=== PATIENT | male | born 1965 | race African-American/Black ===

== ENCOUNTER 2017-05-24 11:16 | Inpatient (IN) | payer OTHER ==
[2017-05-24 15:09] VITALS: BMI 25.9
--- NOTE | 2017-05-24 17:43 | HP ---
CIWA Score - CIWA Score Nausea/Vomitin Muscle Tremors: 4-Moderate,w/Arms Extend Anxiety: 4-Mod. Anxious/Guarded Agitation: 0-Normal Activity Paroxysmal Sweats: 3 Orientation: 0-Oriented Tacttile Disturbances: 3-Moderate Itch/Numb/Burn Auditory Disturbances: 0-None Visual Disturbances: 0-None Headache: 1-Very Mild CIWA-Ar Total Score: 20 Admission ROS [facility] - HPI Chief Complaint: alcohol withdrawal sx Allergies/Adverse Reactions: Allergies Allergy/AdvReac Type Severity Reaction Status Date / Time Penicillins Allergy Rash Verified 05/24/17 15:46 pork derived (porcine) Allergy Hives Verified 05/24/17 15:46 RED MEAT Allergy Uncoded 05/24/17 15:46 History of Present Illness: 52 yo m withh/o alcohol, PCP and crack cocaine dependence PMHX DM, peripheral neuopathy, HTN, elevated cholesterol on medication which he is taking. no h/o seizures, no h/o DTS. no suicide attempts in past, no suicidal ideation at present Exam Limitations: No Limitations - Ebola screening Have you traveled outside of the country in the last 21 days: No Have you had contact with anyone from an Ebola affected area: No Have you been sick,other than usual withdrawal symptoms: No Do you have a fever: No - Review of Systems Constitutional: Chills, Diaphoresis, Weakness, Unintentional Wgt. Loss EENT: reports: No Symptoms Reported Respiratory: reports: No Symptoms reported Cardiac: reports: No Symptoms Reported GI: reports: Diarrhea, Nausea, Poor Appetite, Poor Fluid Intake : reports: No Symptoms Reported Musculoskeletal: reports: No Symptoms Reported Integumentary: reports: Flushing, Sweating Neuro: reports: Headache, Numbness, Tingling, Tremors, Weakness Endocrine: reports: No Symptoms Reported Hematology: reports: No Symptoms Reported Psychiatric: reports: Judgement Intact, Mood/Affect Appropiate, Orientated x3, Anxious, Depressed Other Systems: Reviewed and Negative Patient History - Patient Medical History Hx Anemia: No Hx Asthma: No Hx Chronic Obstructive Pulmonary Disease (COPD): No Hx Cancer: No Hx Cardiac Disorders: No Hx Congestive Heart Failure: No Hx Hypertension: Yes (on meds.) Hx Hypercholesterolemia: Yes Hx Pacemaker: No HX Cerebrovascular Accident: No Hx Seizures: No Hx Dementia: No Hx Diabetes: Yes (Type II) Hx Gastrointestinal Disorders: No Hx Liver Disease: No Hx Genitourinary Disorders: No Hx Sexually Transmitted Disorders: No Hx Renal Disease (ESRD): No Hx Thyroid Disease: No Hx Human Immunodeficiency Virus (HIV): No Hx Hepatitis C: No Hx Depression: No Hx Suicide Attempt: No Hx Bipolar Disorder: No Hx Schizophrenia: No - Patient Surgical History Past Surgical History: Yes Hx Appendectomy: Yes (1985) Anesthesia Reaction: No - PPD History Previous Implant?: Yes Documented Results: Negative w/o proof Implanted On Prior [facility] Admission?: No Date: 10/29/12 PPD to be Administered?: Yes - Reproductive History Patient is a Female of Child Bearing Age (11 -55 yrs old): No Patient : No - Smoking Cessation Smoking history: Current every day smoker Have you smoked in the past 12 months: Yes Aproximately how many cigarettes per day: 10 Hx Chewing Tobacco Use: No Initiated information on smoking cessation: Yes 'Breaking Loose' booklet given: 05/24/17 - Substance & Tx. History Hx Alcohol Use: Yes Hx Substance Use: Yes Substance Use Type: Alcohol, Cocaine Hx Substance Use Treatment: Yes (2012 [facility] detox) - Substances Abused Alcohol Route: Oral Frequency: Daily Amount used: 6pk beer Age of first use: 8 Date of Last Use: 05/24/17 PCP Route: Smoking Frequency: Daily Amount used: 2-3 bags Age of first use: 19 Date of Last Use: 05/24/17 Crack Route: Smoking Frequency: 1-2 times per week Amount used: 3 bags Age of first use: 29 Date of Last Use: 05/24/17 Family Disease History - Family Disease History Family Disease History: Diabetes: Mother Admission Physical Exam [facility] - Vital Signs Vital Signs: Vital Signs - 24 hr 05/24/17 15:05 Temperature 96.6 F L Pulse Rate 99 H Respiratory 20 Rate Blood Pressure 114/79 - Physical General Appearance: Yes: Nourished, Appropriately Dressed, Disheveled, Mild Distress, Thin, Tremorous, Sweating, Anxious HEENTM: Yes: Within Normal Limits, EOMI, Hearing grossly Normal, Normal ENT Inspection, Normocephalic, Normal Voice, AMY, Pharynx Normal Respiratory: Yes: Within Normal Limits, Chest Non-Tender, Lungs Clear, Normal Breath Sounds, No Respiratory Distress, No Accessory Muscle Use Neck: Yes: Within Normal Limits, No masses,lesions,Nodules, Supple, Trachea in good position Breast: Yes: Breast Exam Deferred Cardiology: Yes: Within Normal Limits, Regular Rhythm, Regular Rate, S1, S2 Abdominal: Yes: Within Normal Limits, Normal Bowel Sounds, Non Tender, Flat, Soft Genitourinary: Yes: Within Normal Limits Back: Yes: Within Normal Limits, Normal Inspection Musculoskeletal: Yes: Within Normal Limits, full range of Motion, Gait Steady, Pelvis Stable Extremities: Yes: Normal Capillary Refill, Normal Inspection, Normal Range of Motion, Non-Tender, Tremors Neurological: Yes: infantry assaultman II-XII NML intact, Fully Oriented, Alert, Motor Strength 5/5, Normal Response, Depressed Affect Integumentary: Yes: Normal Color, Warm, Clammy, Diaphoresis, Moist Lymphatic: Yes: Within Normal Limits - Addiitonal Findings: withdrawal sx - Diagnostic (1) Alcohol dependence with uncomplicated withdrawal Current Visit: Yes Status: Acute (2) Cocaine dependence, uncomplicated Current Visit: Yes Status: Acute (3) PCP dependence Current Visit: Yes Status: Acute (4) Peripheral neuropathy Current Visit: Yes Status: Acute (5) Diabetes Current Visit: Yes Status: Acute (6) Essential (primary) hypertension Current Visit: Yes Status: Acute (7) Elevated cholesterol Current Visit: Yes Status: Acute Cleared for Admission [facility] - Detox or Rehab [facility] Level of Care: Medically Managed Detox Regimen/Protocol: Librium [facility] Breath Alcohol Content Breath Alcohol Content: 0 Urine Drug Screen - Results Drug Screen Negative: No Urine Drug Screen Results: NAHOMY-Cocaine, PCP-Phencyclidine
[2017-05-24] MEDS ORDERED: diphenhydrAMINE HCL 50 MG CAPSULE PO PRN (17:46)
[2017-05-24] MEDS ORDERED: ACETAMINOPHEN 325 MG TABLET (FP) PO PRN (17:46)
[2017-05-24] MEDS ORDERED: NICOTINE POLACRILEX 2 MG GUM BC PRN (17:46)
[2017-05-24] MEDS ORDERED: hydrOXYzine PAMOATE 50 MG CAPSULE (FP) PO PRN (17:46)
[2017-05-24] MEDS ORDERED: MAG HYDROX/AL HYDROX/SIMETH 30 ML UNIT-DOSE CUP PO PRN (17:46)
[2017-05-24] MEDS ORDERED: IBUPROFEN 400 MG TABLET (FP) PO PRN (17:46)
[2017-05-24] MEDS ORDERED: MAGNESIUM CITRATE 300 ML BOTTLE PO PRN (17:46)
[2017-05-24] MEDS ORDERED: MAGNESIUM HYDROX 2400MG/30ML ORAL SUSPENSION 30 ML CUP PO PRN (17:46)
[2017-05-24] MEDS ORDERED: MENTHOL/PHENOL 1 EACH UD MM PRN (17:46)
[2017-05-24] MEDS ORDERED: guaiFENesin/D-METHORPHAN HB 10 ML UNIT-DOSE CUPS PO PRN (17:46)
[2017-05-24] MEDS ORDERED: chlordiazePOXIDE HCL 25 MG CAPSULE PO PRN (17:46)
[2017-05-24] MEDS ORDERED: LOPERAMIDE HCL 2 MG CAPSULE PO PRN (17:46)
[2017-05-24] MEDS ORDERED: P-EPHED 60MG/TRIPROLIDI 2.5MG TABLET PO PRN (17:46)
[2017-05-24] MEDS ORDERED: PANTOPRAZOLE 40 MG TABLET (FP) PO ONE (17:49)
[2017-05-24] MEDS ORDERED: ZOLPIDEM TARTRATE 10 MG TABLET (PARK CARE ONLY) PO PRN (17:51)
[2017-05-24] MEDS: ASPIRIN 81 MG CHEWABLE TABLETS PO SCH (18:31)
[2017-05-24] MEDS: NIFEdipine E.R 60 MG TABLET (UD) PO SCH (18:31)
[2017-05-24] MEDS ORDERED: chlordiazePOXIDE HCL 25 MG CAPSULE PO ONE (18:45)
[2017-05-24] MEDS: NICOTINE 14 MG/24 HOURS TOPICAL PATCH TD SCH (18:51)
[2017-05-24] MEDS ORDERED: INSULIN DETEMIR 100 UNITS/ML MDV SQ SCH (22:00)
[2017-05-24 22:13] LABS: URINE APPEARANCE CLEAR; URINE BILIRUBIN NEGATIVE (NEGATIVE); URINE BLOOD NEGATIVE (NEGATIVE); URINE COLOR LTYELLOW; URINE GLUCOSE (UA) 3+ (NEGATIVE); URINE KETONE NEGATIVE (NEGATIVE); URINE NITRITE NEGATIVE (NEGATIVE); URINE UROBILINOGEN NEGATIVE mg/dL (0.2-1.0)
[2017-05-24 22:20] LABS: URINE PROTEIN 1+ (NEGATIVE)
[2017-05-24] MEDS: THIAMINE HCL 100 MG TABLET (FP) PO SCH (22:22)
[2017-05-24] MEDS: chlordiazePOXIDE HCL 25 MG CAPSULE PO SCH (22:22)
[2017-05-24] MEDS: GABAPENTIN 300 MG CAPSULE (FP) PO SCH (22:22)
[2017-05-24] MEDS: NAPROXEN 500 MG TABLET (FP) PO SCH (22:23)
[2017-05-24] MEDS: ATORVASTATIN CA 10 MG TABLET (FP) PO SCH (22:23)
[2017-05-24] MEDS: FLUOCINONIDE 0.05% CREAM (15 GM TUBE) TP SCH (22:26)
[2017-05-24 22:49] LABS: URINE MUCUS RARE; URINE RBC NONE SEEN /hpf (0-3); URINE WBC NONE SEEN /hpf (3-5)
[2017-05-25] MEDS: GABAPENTIN 300 MG CAPSULE (FP) PO SCH ×3 (06:11→22:07)
[2017-05-25] MEDS: chlordiazePOXIDE HCL 25 MG CAPSULE PO SCH ×4 (06:12→22:07)
[2017-05-25] MEDS: FLUOCINONIDE 0.05% CREAM (15 GM TUBE) TP SCH ×3 (06:28→22:08)
[2017-05-25] MEDS ORDERED: INSULIN (NOVOLOG MIX 70/30) 100 UNITS/ML MDV SQ SCH ×2 (07:00→16:30)
[2017-05-25] MEDS ORDERED: COLLOIDAL OATMEAL 1 BAR EACH TP PRN (09:14)
[2017-05-25 09:30] LABS: MCH 31.6 pg (25.7-33.7); MEAN CELL VOLUME 92.9 fl (80-96); PLATELET COUNT 219 K/MM3 (134-434); RDW 13.6 % (11.9-15.9); WHITE BLOOD COUNT 7.2 K/mm3 (4.0-10.0)
[2017-05-25 09:57] LABS: ALBUMIN 3.8 g/dl (3.4-5.0); ALK PHOS 84 U/L (45-117); ANION GAP 12 (8-16); BILIRUBIN,TOTAL 1.2 mg/dL (0.2-1.0); CALCIUM 9.3 mg/dL (8.5-10.1); CO2 24 mmol/L (21-32); CREATININE 1.3 mg/dL (0.7-1.3); GLUCOSE,RANDOM 275 mg/dL (74-106); SGOT/AST 28 U/L (15-37); SGPT/ALT 50 U/L (12-78)
[2017-05-25] MEDS: ASPIRIN 81 MG CHEWABLE TABLETS PO SCH (10:14)
[2017-05-25] MEDS: PRENATAL VITAMINS W/ FOLIC ACID TABLET (FP) PO SCH (10:14)
[2017-05-25] MEDS: NICOTINE 14 MG/24 HOURS TOPICAL PATCH TD SCH (10:15)
[2017-05-25] MEDS: NIFEdipine E.R 60 MG TABLET (UD) PO SCH (10:15)
[2017-05-25] MEDS: NAPROXEN 500 MG TABLET (FP) PO SCH ×2 (10:15→22:07)
--- NOTE | 2017-05-25 11:34 | PN ---
[facility] CIWA - CIWA Score Nausea/Vomitin-No Nausea/No Vomiting Muscle Tremors: 4-Moderate,w/Arms Extend Anxiety: 4-Mod. Anxious/Guarded Agitation: 3 Paroxysmal Sweats: 3 Orientation: 0-Oriented Tacttile Disturbances: 2-Mild Itch/Numbness/Burn Auditory Disturbances: 2-Mild Harshness/Frighten Visual Disturbances: 0-None Headache: 0-None Present CIWA-Ar Total Score: 18 S Progress Note (SOAP) Subjective: Tremors, Sweating, Body Aches, Diarrhea. Objective: PT. A & O X 3, OBSERVED AMBULATING ON UNIT. NO ACUTE DISTRESS. 05/25/17 11:31 Vital Signs Temperature 96.4 F L 05/25/17 09:45 Pulse Rate 95 H 05/25/17 09:45 Respiratory Rate 18 05/25/17 09:45 Blood Pressure 109/72 05/25/17 09:45 O2 Sat by Pulse Oximetry (%) Laboratory Tests 05/24/17 05/24/17 05/24/17 16:11 21:26 21:30 WBC RBC Hgb Hct MCV MCH MCHC RDW Plt Count MPV Sodium Potassium Chloride Carbon Dioxide Anion Gap BUN Creatinine Creat Clearance w eGFR POC Glucometer 348 329 Random Glucose Calcium Total Bilirubin AST ALT Alkaline Phosphatase Total Protein Albumin Urine Color Ltyellow Urine Appearance Clear Urine pH 5.0 Urine Protein 1+ H Urine Glucose (UA) 3+ H Urine Ketones Negative Urine Blood Negative Urine Nitrite Negative Urine Bilirubin Negative Urine Urobilinogen Negative Urine RBC None seen Urine WBC None seen Urine Mucus Rare RPR Titer 05/25/17 05/25/17 05/25/17 06:10 07:00 07:00 WBC 7.2 D RBC 4.69 Hgb 14.8 Hct 43.6 MCV 92.9 MCH 31.6 MCHC 34.0 RDW 13.6 Plt Count 219 D MPV 9.0 Sodium 139 Potassium 3.7 Chloride 103 Carbon Dioxide 24 Anion Gap 12 BUN 16 D Creatinine 1.3 Creat Clearance w eGFR 57.75 POC Glucometer 270 Random Glucose 275 H D Calcium 9.3 Total Bilirubin 1.2 H D AST 28 D ALT 50 D Alkaline Phosphatase 84 Total Protein 7.0 Albumin 3.8 Urine Color Urine Appearance Urine pH Urine Protein Urine Glucose (UA) Urine Ketones Urine Blood Urine Nitrite Urine Bilirubin Urine Urobilinogen Urine RBC Urine WBC Urine Mucus RPR Titer 05/25/17 07:00 WBC RBC Hgb Hct MCV MCH MCHC RDW Plt Count MPV Sodium Potassium Chloride Carbon Dioxide Anion Gap BUN Creatinine Creat Clearance w eGFR POC Glucometer Random Glucose Calcium Total Bilirubin AST ALT Alkaline Phosphatase Total Protein Albumin Urine Color Urine Appearance Urine pH Urine Protein Urine Glucose (UA) Urine Ketones Urine Blood Urine Nitrite Urine Bilirubin Urine Urobilinogen Urine RBC Urine WBC Urine Mucus RPR Titer Nonreactive LABS NOTED. Assessment: 05/25/17 11:32 WITHDRAWAL SYMPTOMS. Plan: CONTINUE DETOX.
[2017-05-25 11:44] LABS: URINE LEUK ESTERASE Negative (NEGATIVE)
--- NOTE | 2017-05-25 12:03 | EKG ---
Test Reason : Blood Pressure : / mmHG Vent. Rate : 092 BPM Atrial Rate : 092 BPM P-R Int : 138 ms QRS Dur : 074 ms QT Int : 334 ms P-R-T Axes : 062 -38 040 degrees QTc Int : 413 ms NORMAL SINUS RHYTHM POSSIBLE LEFT ATRIAL ENLARGEMENT LEFT AXIS DEVIATION ABNORMAL ECG NO PREVIOUS ECGS AVAILABLE Confirmed by IRMA JOSHI MD ([id number]) on 05/25/2017 12:03:30 PM Referred By: Confirmed By:IRMA JOSHI MD
--- NOTE | 2017-05-25 15:37 | PN ---
[facility] Progress Note Note: As per Maggie Bernard RN, patient reports that he takes the following medications at home prior to this Detox admission: 1.) Lantus, 50 Units SQ HS; and 2.) Novolog Insulin, 10 Units SQ TIDCM. Current medication regimen adjusted so that those 2 medications are ordered (Levemir Insulin substituted for Lantus Insulin as per [facility] Hospital policy). Previous insulin orders D/C'd after patient report of corrected home medication schedule. Regular Insulin Sliding Scale ordered. Jignesh Unger NP
[2017-05-25] MEDS ORDERED: INSULIN (NOVOLOG) ASPART 100 UNITS/ML 10ML VIAL ONE (16:52)
[2017-05-25] MEDS: INSULIN (NOVOLOG) ASPART 100 UNITS/ML 10ML VIAL SQ SCH (17:05)
[2017-05-25] MEDS ORDERED: INSULIN (NOVOLOG) ASPART 100 UNITS/ML 10ML VIAL SQ SCH (17:30)
[2017-05-25] MEDS ORDERED: INSULIN DETEMIR 100 UNITS/ML MDV SQ SCH (22:00)
[2017-05-25] MEDS: THIAMINE HCL 100 MG TABLET (FP) PO SCH (22:07)
[2017-05-25] MEDS: ATORVASTATIN CA 10 MG TABLET (FP) PO SCH (22:07)
[2017-05-25] MEDS: INSULIN DETEMIR 100 UNITS/ML MDV SQ SCH (22:08)
[2017-05-26] MEDS: chlordiazePOXIDE HCL 25 MG CAPSULE PO SCH ×3 (06:28→17:05)
[2017-05-26] MEDS: GABAPENTIN 300 MG CAPSULE (FP) PO SCH ×3 (06:28→22:33)
[2017-05-26] MEDS: FLUOCINONIDE 0.05% CREAM (15 GM TUBE) TP SCH ×3 (06:31→22:32)
[2017-05-26] MEDS: INSULIN (NOVOLOG) ASPART 100 UNITS/ML 10ML VIAL SQ SCH ×3 (07:56→17:06)
[2017-05-26] MEDS: ASPIRIN 81 MG CHEWABLE TABLETS PO SCH (10:18)
[2017-05-26] MEDS: NIFEdipine E.R 60 MG TABLET (UD) PO SCH (10:19)
[2017-05-26] MEDS: NAPROXEN 500 MG TABLET (FP) PO SCH ×2 (10:19→22:33)
[2017-05-26] MEDS: PRENATAL VITAMINS W/ FOLIC ACID TABLET (FP) PO SCH (10:19)
[2017-05-26] MEDS: NICOTINE 14 MG/24 HOURS TOPICAL PATCH TD SCH (10:19)
--- NOTE | 2017-05-26 10:51 | PN ---
[facility] CIWA - CIWA Score Nausea/Vomitin-No Nausea/No Vomiting Muscle Tremors: 4-Moderate,w/Arms Extend Anxiety: 4-Mod. Anxious/Guarded Agitation: 4-Moderately Restless Paroxysmal Sweats: 1-Minimal Palms Moist Orientation: 0-Oriented Tacttile Disturbances: 3-Moderate Itch/Numb/Burn Auditory Disturbances: 0-None Visual Disturbances: 0-None Headache: 0-None Present CIWA-Ar Total Score: 16 S Progress Note (SOAP) Subjective: FATIGUE,SWEATS,IRRITABILITY. Objective: 05/26/17 10:54 Vital Signs Temperature 97.7 F 05/26/17 10:12 Pulse Rate 83 05/26/17 10:12 Respiratory Rate 18 05/26/17 10:12 Blood Pressure 115/70 05/26/17 10:12 O2 Sat by Pulse Oximetry (%) Laboratory Last Values WBC 7.2 K/mm3 (4.0-10.0) D 05/25/17 07:00 RBC 4.69 M/mm3 (4.00-5.60) 05/25/17 07:00 Hgb 14.8 GM/dL (11.7-16.9) 05/25/17 07:00 Hct 43.6 % (35.4-49) 05/25/17 07:00 MCV 92.9 fl (80-96) 05/25/17 07:00 MCH 31.6 pg (25.7-33.7) 05/25/17 07:00 MCHC 34.0 g/dl (32.0-35.9) 05/25/17 07:00 RDW 13.6 % (11.9-15.9) 05/25/17 07:00 Plt Count 219 K/MM3 (134-434) D 05/25/17 07:00 MPV 9.0 fl (7.5-11.1) 05/25/17 07:00 Sodium 139 mmol/L (136-145) 05/25/17 07:00 Potassium 3.7 mmol/L (3.5-5.1) 05/25/17 07:00 Chloride 103 mmol/L (98-107) 05/25/17 07:00 Carbon Dioxide 24 mmol/L (21-32) 05/25/17 07:00 Anion Gap 12 (8-16) 05/25/17 07:00 BUN 16 mg/dL (7-18) D 05/25/17 07:00 Creatinine 1.3 mg/dL (0.7-1.3) 05/25/17 07:00 Creat Clearance w eGFR 57.75 (>60) 05/25/17 07:00 POC Glucometer 296 UNITS (()) 05/26/17 06:29 Random Glucose 275 mg/dL (74-106) H D 05/25/17 07:00 Calcium 9.3 mg/dL (8.5-10.1) 05/25/17 07:00 Total Bilirubin 1.2 mg/dL (0.2-1.0) H D 05/25/17 07:00 AST 28 U/L (15-37) D 05/25/17 07:00 ALT 50 U/L (12-78) D 05/25/17 07:00 Alkaline Phosphatase 84 U/L (45-117) 05/25/17 07:00 Total Protein 7.0 g/dl (6.4-8.2) 05/25/17 07:00 Albumin 3.8 g/dl (3.4-5.0) 05/25/17 07:00 Urine Color Ltyellow 05/24/17 21:30 Urine Appearance Clear 05/24/17 21:30 Urine pH 5.0 (5.0-8.0) 05/24/17 21:30 Ur Specific [place] 1.010 (1.005-1.025) 05/24/17 21:30 Urine Protein 1+ (NEGATIVE) H 05/24/17 21:30 Urine Glucose (UA) 3+ (NEGATIVE) H 05/24/17 21:30 Urine Ketones Negative (NEGATIVE) 05/24/17 21:30 Urine Blood Negative (NEGATIVE) 05/24/17 21:30 Urine Nitrite Negative (NEGATIVE) 05/24/17 21:30 Urine Bilirubin Negative (NEGATIVE) 05/24/17 21:30 Urine Urobilinogen Negative mg/dL (0.2-1.0) 05/24/17 21:30 Ur Leukocyte Esterase Negative (NEGATIVE) 05/24/17 21:30 Urine RBC None seen /hpf (0-3) 05/24/17 21:30 Urine WBC None seen /hpf (3-5) 05/24/17 21:30 Urine Mucus Rare 05/24/17 21:30 RPR Titer Nonreactive (NONREACTIVE) 05/25/17 07:00 Assessment: 05/26/17 10:54 WITHDRAWAL SX Plan: CONTINUE DETOX
[2017-05-26] MEDS ORDERED: INSULIN (NOVOLOG) ASPART 100 UNITS/ML 10ML VIAL ONE (11:51)
[2017-05-26] MEDS: INSULIN DETEMIR 100 UNITS/ML MDV SQ SCH (22:32)
[2017-05-26] MEDS: THIAMINE HCL 100 MG TABLET (FP) PO SCH (22:33)
[2017-05-26] MEDS: ATORVASTATIN CA 10 MG TABLET (FP) PO SCH (22:33)
[2017-05-26] MEDS: chlordiazePOXIDE 5 MG CAPSULE PO SCH (22:34)
[2017-05-27] MEDS: chlordiazePOXIDE 5 MG CAPSULE PO SCH ×3 (05:59→17:05)
[2017-05-27] MEDS: GABAPENTIN 300 MG CAPSULE (FP) PO SCH ×3 (05:59→22:13)
[2017-05-27] MEDS: FLUOCINONIDE 0.05% CREAM (15 GM TUBE) TP SCH ×5 (06:00→22:14)
[2017-05-27] MEDS ORDERED: INSULIN (NOVOLOG) ASPART 100 UNITS/ML 10ML VIAL ONE ×2 (06:44→21:36)
[2017-05-27] MEDS: INSULIN (NOVOLOG) ASPART 100 UNITS/ML 10ML VIAL SQ SCH ×3 (07:54→17:07)
[2017-05-27] MEDS: NAPROXEN 500 MG TABLET (FP) PO SCH ×2 (10:42→22:13)
[2017-05-27] MEDS: ASPIRIN 81 MG CHEWABLE TABLETS PO SCH (10:43)
[2017-05-27] MEDS: PRENATAL VITAMINS W/ FOLIC ACID TABLET (FP) PO SCH (10:43)
[2017-05-27] MEDS: NICOTINE 14 MG/24 HOURS TOPICAL PATCH TD SCH (10:43)
[2017-05-27] MEDS: NIFEdipine E.R 60 MG TABLET (UD) PO SCH (10:43)
--- NOTE | 2017-05-27 14:13 | PN ---
[facility] Progress Note (SOAP) Subjective: Sweating, Tremors. Objective: PT. A & O X 3, OBSERVED AMBULATING ON UNIT. NO ACUTE DISTRESS. 05/27/17 14:12 Vital Signs Temperature 96.9 F L 05/27/17 13:53 Pulse Rate 81 05/27/17 13:53 Respiratory Rate 18 05/27/17 13:53 Blood Pressure 99/63 05/27/17 13:53 O2 Sat by Pulse Oximetry (%) Laboratory Tests 05/24/17 05/24/17 05/24/17 16:11 21:26 21:30 WBC RBC Hgb Hct MCV MCH MCHC RDW Plt Count MPV Sodium Potassium Chloride Carbon Dioxide Anion Gap BUN Creatinine Creat Clearance w eGFR POC Glucometer 348 329 Random Glucose Calcium Total Bilirubin AST ALT Alkaline Phosphatase Total Protein Albumin Urine Color Ltyellow Urine Appearance Clear Urine pH 5.0 Ur Specific [place] 1.010 Urine Protein 1+ H Urine Glucose (UA) 3+ H Urine Ketones Negative Urine Blood Negative Urine Nitrite Negative Urine Bilirubin Negative Urine Urobilinogen Negative Ur Leukocyte Esterase Negative Urine RBC None seen Urine WBC None seen Urine Mucus Rare RPR Titer 05/25/17 05/25/17 05/25/17 06:10 07:00 07:00 WBC 7.2 D RBC 4.69 Hgb 14.8 Hct 43.6 MCV 92.9 MCH 31.6 MCHC 34.0 RDW 13.6 Plt Count 219 D MPV 9.0 Sodium 139 Potassium 3.7 Chloride 103 Carbon Dioxide 24 Anion Gap 12 BUN 16 D Creatinine 1.3 Creat Clearance w eGFR 57.75 POC Glucometer 270 Random Glucose 275 H D Calcium 9.3 Total Bilirubin 1.2 H D AST 28 D ALT 50 D Alkaline Phosphatase 84 Total Protein 7.0 Albumin 3.8 Urine Color Urine Appearance Urine pH Ur Specific [place] Urine Protein Urine Glucose (UA) Urine Ketones Urine Blood Urine Nitrite Urine Bilirubin Urine Urobilinogen Ur Leukocyte Esterase Urine RBC Urine WBC Urine Mucus RPR Titer 05/25/17 05/25/17 05/25/17 07:00 11:23 16:16 WBC RBC Hgb Hct MCV MCH MCHC RDW Plt Count MPV Sodium Potassium Chloride Carbon Dioxide Anion Gap BUN Creatinine Creat Clearance w eGFR POC Glucometer 246 284 Random Glucose Calcium Total Bilirubin AST ALT Alkaline Phosphatase Total Protein Albumin Urine Color Urine Appearance Urine pH Ur Specific [place] Urine Protein Urine Glucose (UA) Urine Ketones Urine Blood Urine Nitrite Urine Bilirubin Urine Urobilinogen Ur Leukocyte Esterase Urine RBC Urine WBC Urine Mucus RPR Titer Nonreactive 05/25/17 05/26/17 05/26/17 21:31 06:29 16:19 WBC RBC Hgb Hct MCV MCH MCHC RDW Plt Count MPV Sodium Potassium Chloride Carbon Dioxide Anion Gap BUN Creatinine Creat Clearance w eGFR POC Glucometer 255 296 266 Random Glucose Calcium Total Bilirubin AST ALT Alkaline Phosphatase Total Protein Albumin Urine Color Urine Appearance Urine pH Ur Specific [place] Urine Protein Urine Glucose (UA) Urine Ketones Urine Blood Urine Nitrite Urine Bilirubin Urine Urobilinogen Ur Leukocyte Esterase Urine RBC Urine WBC Urine Mucus RPR Titer 05/26/17 05/27/17 05/27/17 21:32 06:01 12:23 WBC RBC Hgb Hct MCV MCH MCHC RDW Plt Count MPV Sodium Potassium Chloride Carbon Dioxide Anion Gap BUN Creatinine Creat Clearance w eGFR POC Glucometer 277 334 440 Random Glucose Calcium Total Bilirubin AST ALT Alkaline Phosphatase Total Protein Albumin Urine Color Urine Appearance Urine pH Ur Specific [place] Urine Protein Urine Glucose (UA) Urine Ketones Urine Blood Urine Nitrite Urine Bilirubin Urine Urobilinogen Ur Leukocyte Esterase Urine RBC Urine WBC Urine Mucus RPR Titer LABS NOTED. Assessment: 05/27/17 14:12 WITHDRAWAL SYMPTOMS. Plan: CONTINUE DETOX. INCREASE DAILY PO FLUID INTAKE.
[2017-05-27] MEDS: INSULIN SLIDING SCALE (NOVOLOG) 1 VIAL SQ SCH ×2 (17:06→22:14)
[2017-05-27] MEDS: chlordiazePOXIDE HCL 10 MG CAPSULE PO SCH (22:12)
[2017-05-27] MEDS: ATORVASTATIN CA 10 MG TABLET (FP) PO SCH (22:13)
[2017-05-27] MEDS: THIAMINE HCL 100 MG TABLET (FP) PO SCH (22:13)
[2017-05-27] MEDS: INSULIN DETEMIR 100 UNITS/ML MDV SQ SCH (22:13)
[2017-05-28] MEDS: GABAPENTIN 300 MG CAPSULE (FP) PO SCH (05:45)
[2017-05-28] MEDS: FLUOCINONIDE 0.05% CREAM (15 GM TUBE) TP SCH ×2 (05:45→06:21)
[2017-05-28] MEDS: chlordiazePOXIDE HCL 10 MG CAPSULE PO SCH ×2 (05:45→10:01)
[2017-05-28 06:20] VITALS: BP 116/75; PULSE 104; TEMP 96.8
[2017-05-28] MEDS: INSULIN SLIDING SCALE (NOVOLOG) 1 VIAL SQ SCH (06:22)
[2017-05-28] MEDS: INSULIN (NOVOLOG) ASPART 100 UNITS/ML 10ML VIAL SQ SCH (08:30)
[2017-05-28] MEDS: NIFEdipine E.R 60 MG TABLET (UD) PO SCH (10:00)
[2017-05-28] MEDS: NICOTINE 14 MG/24 HOURS TOPICAL PATCH TD SCH (10:00)
[2017-05-28] MEDS: NAPROXEN 500 MG TABLET (FP) PO SCH (10:00)
[2017-05-28] MEDS: ASPIRIN 81 MG CHEWABLE TABLETS PO SCH (10:00)
[2017-05-28] MEDS: PRENATAL VITAMINS W/ FOLIC ACID TABLET (FP) PO SCH (10:00)
--- NOTE | 2017-05-28 13:13 | DS ---
[facility] Detox Discharge Summary Admission Date: 05/24/17 Discharge Date: 05/28/17 - History Present History: Alcohol Dependence, Cocaine Dependence, Pcp Dependence Additional Comments: PT COMPLETED DETOX. ALERT O X 3. NAD. PT WILL FOLLOW UP AT [facility] WITH PCP NEEDED FOR MEDICAL MANAGEMENT OF COMORBID CONDITIONS. Pertinent Past History: HTN HYPERCHOLESTEROLEMIA DM PERIPHERAL NEUROPATHY - Physical Exam Results Vital Signs: Vital Signs Temperature 96.8 F L 05/28/17 06:19 Pulse Rate 104 H 05/28/17 06:19 Respiratory Rate 18 05/28/17 06:19 Blood Pressure 116/75 05/28/17 06:19 O2 Sat by Pulse Oximetry (%) Pertinent Admission Physical Exam Findings: WITHDRAWAL SX Laboratory Last Values WBC 7.2 K/mm3 (4.0-10.0) D 05/25/17 07:00 RBC 4.69 M/mm3 (4.00-5.60) 05/25/17 07:00 Hgb 14.8 GM/dL (11.7-16.9) 05/25/17 07:00 Hct 43.6 % (35.4-49) 05/25/17 07:00 MCV 92.9 fl (80-96) 05/25/17 07:00 MCH 31.6 pg (25.7-33.7) 05/25/17 07:00 MCHC 34.0 g/dl (32.0-35.9) 05/25/17 07:00 RDW 13.6 % (11.9-15.9) 05/25/17 07:00 Plt Count 219 K/MM3 (134-434) D 05/25/17 07:00 MPV 9.0 fl (7.5-11.1) 05/25/17 07:00 Sodium 139 mmol/L (136-145) 05/25/17 07:00 Potassium 3.7 mmol/L (3.5-5.1) 05/25/17 07:00 Chloride 103 mmol/L (98-107) 05/25/17 07:00 Carbon Dioxide 24 mmol/L (21-32) 05/25/17 07:00 Anion Gap 12 (8-16) 05/25/17 07:00 BUN 16 mg/dL (7-18) D 05/25/17 07:00 Creatinine 1.3 mg/dL (0.7-1.3) 05/25/17 07:00 Creat Clearance w eGFR 57.75 (>60) 05/25/17 07:00 POC Glucometer 331 UNITS (()) 05/28/17 05:43 Random Glucose 275 mg/dL (74-106) H D 05/25/17 07:00 Calcium 9.3 mg/dL (8.5-10.1) 05/25/17 07:00 Total Bilirubin 1.2 mg/dL (0.2-1.0) H D 05/25/17 07:00 AST 28 U/L (15-37) D 05/25/17 07:00 ALT 50 U/L (12-78) D 05/25/17 07:00 Alkaline Phosphatase 84 U/L (45-117) 05/25/17 07:00 Total Protein 7.0 g/dl (6.4-8.2) 05/25/17 07:00 Albumin 3.8 g/dl (3.4-5.0) 05/25/17 07:00 Urine Color Ltyellow 05/24/17 21:30 Urine Appearance Clear 05/24/17 21:30 Urine pH 5.0 (5.0-8.0) 05/24/17 21:30 Ur Specific [place] 1.010 (1.005-1.025) 05/24/17 21:30 Urine Protein 1+ (NEGATIVE) H 05/24/17 21:30 Urine Glucose (UA) 3+ (NEGATIVE) H 05/24/17 21:30 Urine Ketones Negative (NEGATIVE) 05/24/17 21:30 Urine Blood Negative (NEGATIVE) 05/24/17 21:30 Urine Nitrite Negative (NEGATIVE) 05/24/17 21:30 Urine Bilirubin Negative (NEGATIVE) 05/24/17 21:30 Urine Urobilinogen Negative mg/dL (0.2-1.0) 05/24/17 21:30 Ur Leukocyte Esterase Negative (NEGATIVE) 05/24/17 21:30 Urine RBC None seen /hpf (0-3) 05/24/17 21:30 Urine WBC None seen /hpf (3-5) 05/24/17 21:30 Urine Mucus Rare 05/24/17 21:30 RPR Titer Nonreactive (NONREACTIVE) 05/25/17 07:00 - Treatment Hospital Course: Detox Protocol Followed, Detoxed Safely, Responded well, Discharged Condition Good, Rehab Referral Accepted Patient has Accepted a Rehab Referral to: [facility] - [facility] Discharge Medications: Ambulatory Orders Aspirin [ASA -] 81 mg PO DAILY 05/24/17 Atorvastatin Calcium 10 mg PO HS 05/24/17 Diclofenac Sodium [Pennsaid] 2 gm TP BID 05/24/17 Ergocalciferol [Vitamin D2] 50,000 unit PO WEEKLY 05/24/17 Fluocinonide 0.05% Cream [Lidex 0.05% Cream -] 1 applic TP TID 05/24/17 Gabapentin 600 mg PO BID 05/24/17 Insulin (Novolog 70/30) [Novolog Mix 70/30 Flexpen -] 20 units SQ ACBK 05/24/17 Insulin Glargine,Hum.rec.anlog [Lantus Solostar PEN (NF)] 50 units SQ HS Linaclotide [Linzess] 145 mcg PO DAILY 05/24/17 Naproxen [Naprosyn -] 500 mg PO BID 05/24/17 Naproxen/Esomeprazole Mag [Vimovo Dr 500-20 mg Tablet] 1 each PO BID 05/24/17 Nifedipine [Procardia Xl] 60 mg PO DAILY 05/24/17 Insulin Aspart [Novolog] 10 unit SQ TIDCM 05/25/17 Insulin Glargine,Hum.rec.anlog [Lantus Solostar PEN (NF)] 50 units SQ HS - Diagnosis (1) Alcohol dependence with uncomplicated withdrawal Status: Acute (2) Cocaine dependence, uncomplicated Status: Acute (3) Diabetes Status: Chronic Qualifiers: Diabetes mellitus type: type 2 (4) Elevated cholesterol Status: Chronic (5) Essential (primary) hypertension Status: Chronic (6) Peripheral neuropathy Status: Chronic (7) Phencyclidine dependence Status: Acute - AMA Did Patient Leave Against Medical Advice: No
== END 2017-05-28 10:57 | disposition other institution (70) | DRG 774 ==
LOC: YASAS 11:16 → Y3N 15:46
PROVIDERS: ADMIT Internal Medicine; ATTEND Internal Medicine
PROC: HZ2ZZZZ Detoxification Services for Substance Abuse Treatment (ICD-10-PCS; principal; 2017-05-24)
DX: F10.230 Alcohol dependence with withdrawal, uncomplicated (principal); F14.20 Cocaine dependence, uncomplicated; F16.20 Hallucinogen dependence, uncomplicated; F17.210 Nicotine dependence, cigarettes, uncomplicated; I10 Essential (primary) hypertension; E11.9 Type 2 diabetes mellitus without complications; E78.00 Pure hypercholesterolemia, unspecified; G62.9 Polyneuropathy, unspecified; Z79.4 Long term (current) use of insulin; Z91.018 Allergy to other foods
CPT/HCPCS: 36415; 80053; 81003; 81015; 85027; 86593; 93005; 93010

== ENCOUNTER 2017-05-29 15:51 | Emergency (ER) | payer OTHER ==
[2017-05-29 16:21] VITALS: BP 108/72; PULSE 99; TEMP 97.3; BMI 28.0
--- NOTE | 2017-05-29 16:39 | PDOC ---
History of Present Illness - General Chief Complaint: Injury Stated Complaint: FALL History Source: Patient Exam Limitations: No Limitations - History of Present Illness Initial Comments: 05/29/17 16:39 This 52-year-old male who presents from rehabilitation at [address] [place] [address]. states he was walking in the hallway and slipped on water landing on his left knee and his left shoulder. Denies any LOC. Able to have some range of motion but states there is some pain at the left knee and shoulder during flexion and extension. No obvious injuries. Distally able to have full range of motion. Ice was applied. Past History - Past Medical History Allergies/Adverse Reactions: Allergies Allergy/AdvReac Type Severity Reaction Status Date / Time Penicillins Allergy Rash Verified 05/29/17 16:16 pork derived (porcine) Allergy Hives Verified 05/29/17 16:16 RED MEAT Allergy Uncoded 05/29/17 16:16 Home Medications: Ambulatory Orders Aspirin [ASA -] 81 mg PO DAILY 05/24/17 Atorvastatin Calcium 10 mg PO HS 05/24/17 Diclofenac Sodium [Pennsaid] 2 gm TP BID 05/24/17 Ergocalciferol [Vitamin D2] 50,000 unit PO WEEKLY 05/24/17 Fluocinonide 0.05% Cream [Lidex 0.05% Cream -] 1 applic TP TID 05/24/17 Gabapentin 600 mg PO BID 05/24/17 Insulin (Novolog 70/30) [Novolog Mix 70/30 Flexpen -] 20 units SQ ACBK 05/24/17 Insulin Glargine,Hum.rec.anlog [Lantus Solostar PEN (NF)] 50 units SQ HS Linaclotide [Linzess] 145 mcg PO DAILY 05/24/17 Naproxen [Naprosyn -] 500 mg PO BID 05/24/17 Naproxen/Esomeprazole Mag [Vimovo Dr 500-20 mg Tablet] 1 each PO BID 05/24/17 Nifedipine [Procardia Xl] 60 mg PO DAILY 05/24/17 Insulin Aspart [Novolog] 10 unit SQ TIDCM 05/25/17 Insulin Glargine,Hum.rec.anlog [Lantus Solostar PEN (NF)] 50 units SQ HS Anemia: No Asthma: No Cancer: No Cardiac Disorders: No CVA: No COPD: No CHF: No Dementia: No Diabetes: Yes GI Disorders: No Disorders: No HTN: Yes Hypercholesterolemia: Yes Kidney Stones: No Liver Disease: No Seizures: No Thyroid Disease: No - Surgical History Appendectomy: Yes (1985) - Reproductive History Testicular Surgery: No - Suicide/Smoking/Psychosocial Hx Smoking History: Former smoker Have you smoked in the past 12 months: No Number of Cigarettes Smoked Daily: 10 Information on smoking cessation initiated: No 'Breaking Loose' booklet given: 05/28/17 Hx Alcohol Use: No Drug/Substance Use Hx: No Substance Use Type: Alcohol, Cocaine Hx Substance Use Treatment: Yes (3 previous inpt detox & one inpt rehab) Review of Systems - Review of Systems Able to Perform ROS?: Yes Comments:: 05/29/17 16:40 General statement: Hematology: neg history of bleeding/blood thinners Skin: Neg for lesions, rash, bruising. HEENT: Neg symptoms Respiratory: Neg SOB or difficulty in breathing Cardiac: Neg chest pain GI: Neg pain, n/v : Neg problems on voiding MS: Neg for joint pain/stiffness, no edema Neuro: Neg for LOC, weakness, Endocrine: Neg for excess thirst/hunger, cold/heat intolerance, excess sweating Allergies: Neg for allergies *Physical Exam - Vital Signs Last Vital Signs Temp Pulse Resp BP Pulse Ox 97.3 F L 99 H 18 108/72 100 05/29/17 15:51 05/29/17 15:51 05/29/17 15:51 05/29/17 15:51 05/29/17 15:51 - Physical Exam Comments: 05/29/17 16:40 General Appearance: This well appearing V/S: hemodynamically stable, afebrile Skin: WNL of pt's skin color, no signs of pallor, mottling, cyanosis Head:symmetrical Eyes: EOM's intact, PERRLA Ears: denies pain Nose: patent Throat: lips, teeth, gums, tongue, buccal mucos pink and moist Lungs: Chest symmetry equal. Cap refill <3 seconds. Lung sounds clear Cardiac: PMI at R 4MCL space, pos S1 and S2, regular rate. Abdomen: Soft, round, nontender : Not observed Muscularskeletal: Gait steady, ambulated in to ER, no edema +PMS, left knee, left shoulder pain on rotation Neuro: AAOx3, cognitively intact, speech clear and appropriate. Medical Decision Making - Medical Decision Making 05/29/17 16:40 Patient initially seen and examined. Patient found to have some pain on rotation to the left shoulder and left knee. He states he fell while in [address] detox. Plan X-rays left shoulder and left knee. 05/29/17 17:33 neg fx *DC/Admit/Observation/Transfer Diagnosis at time of Disposition: Fall Knee pain, acute Qualifiers: Laterality: left Qualified Code(s): M25.562 - Pain in left knee Shoulder pain, left Qualifiers: Chronicity: acute Qualified Code(s): M25.512 - Pain in left shoulder - Discharge Dispostion Disposition: HOME Admit: No - Referrals Referrals: Rambo Hilario MD [Primary Care Provider] - - Patient Instructions Printed Discharge Instructions: How to Prevent Falls Additional Instructions: Discharge instructions 1. Please follow up with your primary physician within the next few days and explain that you have been seen here in the Emergency Room. 2. If you experience any worsening of symptoms, please return to the ER 3. Rest take Tylenol for pain, use ice 4. Drink plenty of water
[2017-05-29] MEDS ORDERED: IBUPROFEN 600 MG TABLET (FP) PO ONE ×2 (16:50→16:57)
== END 2017-05-29 17:41 | disposition other institution (70) ==
LOC: JERFT 15:51
DX: M25.512 Pain in left shoulder (principal); M25.562 Pain in left knee; I10 Essential (primary) hypertension; E11.9 Type 2 diabetes mellitus without complications; Z79.4 Long term (current) use of insulin; E78.00 Pure hypercholesterolemia, unspecified; Z87.891 Personal history of nicotine dependence; W01.0XXA Fall on same level from slipping, tripping and stumbling without subsequent striking against object, initial encounter; Y93.89 Activity, other specified; Y92.238 Other place in hospital as the place of occurrence of the external cause; Y99.8 Other external cause status
CPT/HCPCS: 73030-TC-LT; 73562-TC-LT; 99281-25

== ENCOUNTER 2017-12-11 14:15 | Inpatient (IN) | payer OTHER ==
[2017-12-11 16:24] VITALS: BMI 28.6
--- NOTE | 2017-12-11 20:40 | HP ---
CIWA Score - CIWA Score Nausea/Vomitin-No Nausea/No Vomiting Muscle Tremors: 4-Moderate,w/Arms Extend Anxiety: 4-Mod. Anxious/Guarded Agitation: 4-Moderately Restless Paroxysmal Sweats: 3 Orientation: 0-Oriented Tacttile Disturbances: 3-Moderate Itch/Numb/Burn Auditory Disturbances: 0-None Visual Disturbances: 3-Moderate Sensitivity Headache: 0-None Present CIWA-Ar Total Score: 21 Admission ROS BHS - HPI Chief Complaint: SEEKING DETOX FOR ALCOHOL DEPENDENCE. AND WITHDRAWAL SX'S Allergies/Adverse Reactions: Allergies Allergy/AdvReac Type Severity Reaction Status Date / Time Penicillins Allergy Severe Rash Verified 12/11/17 17:18 pork derived (porcine) Allergy Severe Hives Verified 12/11/17 17:18 RED MEAT Allergy Severe Hives Uncoded 12/11/17 17:18 History of Present Illness: 52 Y.O. MALE WITH LONG HX/O ALCOHOLISM HERE FOR DETOX. CLIENT IS KNOWN TO THIS PROGRAM. HE IS COURT MANDATED. SEEKING MEDICAL TERRITORY MANAGER SERVICES AFTER COMPLETING , REPORTS LONGEST CLEAN TIME 6 MONTHS. PMHX: DM, HTN, HLD, ANXIETY. BGM DOCUMENTED AT 17:48 WAS 508 MG/DL. PER CLIENT HE DID OT TAKE HIS MEDS TODAY. DENIES PAST AND PRESENT SI/HI AND A/V HALLUCINATIONS Exam Limitations: No Limitations - Ebola screening Have you traveled outside of the country in the last 21 days: No Have you had contact with anyone from an Ebola affected area: No Have you been sick,other than usual withdrawal symptoms: No Do you have a fever: No - Review of Systems Constitutional: Chills, Malaise, Night Sweats EENT: reports: Other (DRY MOUTH AND VISUAL CHANGES) Respiratory: reports: No Symptoms reported Cardiac: reports: No Symptoms Reported GI: reports: Poor Fluid Intake : reports: Frequency Musculoskeletal: reports: Other (FOOT AN FINGER TIP PAIN DUE TO NEURPOATHY) Integumentary: reports: No Symptoms Reported Neuro: reports: Numbness (/2 NEROPATHY) Endocrine: reports: Other (DM) Hematology: reports: No Symptoms Reported Psychiatric: reports: Anxious Other Systems: Reviewed and Negative Patient History - Patient Medical History Hx Anemia: No Hx Asthma: No Hx Chronic Obstructive Pulmonary Disease (COPD): No Hx Cancer: No Hx Cardiac Disorders: No Hx Congestive Heart Failure: No Hx Hypertension: Yes Hx Hypercholesterolemia: Yes Hx Pacemaker: No HX Cerebrovascular Accident: No Hx Seizures: No Hx Dementia: No Hx Diabetes: Yes (IDDM) Hx Gastrointestinal Disorders: Yes (IBS) Hx Liver Disease: No Hx Genitourinary Disorders: No Hx Sexually Transmitted Disorders: No Hx Renal Disease (ESRD): No Hx Thyroid Disease: No Hx Human Immunodeficiency Virus (HIV): No Hx Hepatitis C: No Hx Depression: No Hx Suicide Attempt: No Hx Bipolar Disorder: No Hx Schizophrenia: No Other Medical History: ANXIETY - Patient Surgical History Past Surgical History: Yes Hx Neurologic Surgery: No Hx Cataract Extraction: No Hx Cardiac Surgery: No Hx Lung Surgery: No Hx Breast Surgery: No Hx Breast Biopsy: No Hx Abdominal Surgery: No Hx Appendectomy: Yes (1985) Hx Cholecystectomy: No Hx Genitourinary Surgery: No Hx Section: No Hx Orthopedic Surgery: No Anesthesia Reaction: No - PPD History Previous Implant?: Yes Documented Results: Negative w/proof Implanted On Prior [facility] Admission?: Yes Date: 05/26/17 Results: 0 mm PPD to be Administered?: No - Smoking Cessation Smoking history: Current some day smoker Have you smoked in the past 12 months: No Aproximately how many cigarettes per day: 3 Hx Chewing Tobacco Use: No Initiated information on smoking cessation: Yes 'Breaking Loose' booklet given: 12/11/17 - Substance & Tx. History Hx Alcohol Use: Yes Hx Substance Use: Yes Substance Use Type: Alcohol, Cocaine Hx Substance Use Treatment: Yes ([facility] - Substances Abused Cocaine Route: Smoking Frequency: Daily Amount used: $30 Age of first use: 16 Date of Last Use: 12/08/17 Alcohol-vodka/beer Route: Oral Frequency: Daily Amount used: 1 pt./1-6 pk. Age of first use: 8 Date of Last Use: 12/11/17 Family Disease History - Family Disease History Family Disease History: Diabetes: Mother Admission Physical Exam S - Vital Signs Vital Signs: Vital Signs - 24 hr 12/11/17 16:20 Temperature 97 F L Pulse Rate 99 H Respiratory 20 Rate Blood Pressure 134/88 - Physical General Appearance: Yes: Nourished, Appropriately Dressed, Anxious HEENTM: Yes: EOMI, Normocephalic, Normal Voice, AMY, Pharynx Normal, Other ( MISSING TEETH) Respiratory: Yes: Chest Non-Tender, Lungs Clear, Normal Breath Sounds, No Respiratory Distress, No Accessory Muscle Use Neck: Yes: No masses,lesions,Nodules, Supple, Trachea in good position Breast: Yes: Breast Exam Deferred Cardiology: Yes: Regular Rhythm, Regular Rate, S1, S2 Abdominal: Yes: Normal Bowel Sounds, Non Tender, Soft, Protuberent Genitourinary: Yes: Within Normal Limits Back: Yes: Normal Inspection Musculoskeletal: Yes: full range of Motion, Gait Steady Extremities: Yes: Normal Capillary Refill, Normal Range of Motion, Non-Tender Neurological: Yes: Alert, Motor Strength 5/5 Integumentary: Yes: Normal Color, Dry, Warm Lymphatic: Yes: Within Normal Limits - Diagnostic (1) HLD (hyperlipidemia) Current Visit: Yes Status: Acute Qualifiers: Hyperlipidemia type: unspecified Qualified Code(s): E78.5 - Hyperlipidemia , unspecified (2) DIABETES TYPE 2 Current Visit: Yes Status: Acute (3) Alcohol dependence with uncomplicated withdrawal Current Visit: Yes Status: Chronic (4) Cocaine dependence, uncomplicated Current Visit: Yes Status: Chronic (5) Nicotine dependence Current Visit: Yes Status: Chronic Qualifiers: Nicotine product type: cigarettes Substance use status: uncomplicated Qualified Code(s): F17.210 - Nicotine dependence, cigarettes, uncomplicated (6) Substance-induced sleep disorder Current Visit: Yes Status: Chronic (7) Essential (primary) hypertension Current Visit: Yes Status: Chronic (8) Peripheral neuropathy Current Visit: Yes Status: Chronic Qualifiers: Peripheral neuropathy type: polyneuropathy, unspecified Qualified Code(s): G62.9 - Polyneuropathy, unspecified (9) Dry mucous membranes Current Visit: Yes Status: Acute Cleared for Admission [facility] - Detox or Rehab [facility] Level of Care: Medically Managed Detox Regimen/Protocol: Librium Claeared for Rehab Admission: No [facility] Breath Alcohol Content Breath Alcohol Content: 0.008 Urine Drug Screen - Results Drug Screen Negative: Yes
[2017-12-11] MEDS ORDERED: MAGNESIUM CITRATE 300 ML BOTTLE PO PRN (20:46)
[2017-12-11] MEDS ORDERED: P-EPHED 60MG/TRIPROLIDI 2.5MG TABLET PO PRN (20:46)
[2017-12-11] MEDS ORDERED: IBUPROFEN 400 MG TABLET (FP) PO PRN (20:46)
[2017-12-11] MEDS ORDERED: MAGNESIUM HYDROX 2400MG/30ML ORAL SUSPENSION 30 ML CUP PO PRN (20:46)
[2017-12-11] MEDS ORDERED: ACETAMINOPHEN 325 MG TABLET (FP) PO PRN (20:46)
[2017-12-11] MEDS ORDERED: MENTHOL/PHENOL 1 EACH UD MM PRN (20:46)
[2017-12-11] MEDS ORDERED: hydrOXYzine PAMOATE 50 MG CAPSULE (FP) PO PRN (20:46)
[2017-12-11] MEDS ORDERED: chlordiazePOXIDE HCL 25 MG CAPSULE PO PRN (20:46)
[2017-12-11] MEDS ORDERED: MAG HYDROX/AL HYDROX/SIMETH 30 ML UNIT-DOSE CUP PO PRN (20:46)
[2017-12-11] MEDS ORDERED: guaiFENesin/D-METHORPHAN HB 10 ML UNIT-DOSE CUPS PO PRN (20:46)
[2017-12-11] MEDS ORDERED: INSULIN (NOVOLOG) ASPART 100 UNITS/ML 10ML VIAL ONE (21:43)
[2017-12-11] MEDS: THIAMINE HCL 100 MG TABLET (FP) PO SCH (21:54)
[2017-12-11] MEDS: GABAPENTIN 400 MG CAPSULE (FP) PO SCH (21:54)
[2017-12-11] MEDS: ATORVASTATIN CA 10 MG TABLET (FP) PO SCH (21:55)
[2017-12-11] MEDS ORDERED: MELATONIN 5 MG TABLETS PO PRN (22:00)
[2017-12-11] MEDS: INSULIN SLIDING SCALE (NOVOLOG) 1 VIAL SQ SCH (22:03)
[2017-12-11] MEDS: INSULIN (LEVEMIR) 100 UNITS/ML UNITS SQ SCH (22:03)
[2017-12-11] MEDS: chlordiazePOXIDE HCL 25 MG CAPSULE PO SCH (22:53)
[2017-12-11 23:07] LABS: URINE APPEARANCE CLEAR; URINE BILIRUBIN NEGATIVE (<2.0 mg/dL); URINE COLOR YELLOW; URINE GLUCOSE (UA) 1+ (NEGATIVE); URINE KETONE NEGATIVE (NEGATIVE); URINE LEUK ESTERASE NEGATIVE (NEGATIVE); URINE NITRITE NEGATIVE (NEGATIVE); URINE PROTEIN NEGATIVE (NEGATIVE); URINE UROBILINOGEN NEGATIVE mg/dL (0.2-1.0)
[2017-12-12] MEDS: chlordiazePOXIDE HCL 25 MG CAPSULE PO SCH ×4 (06:15→22:18)
[2017-12-12] MEDS: INSULIN SLIDING SCALE (NOVOLOG) 1 VIAL SQ SCH ×4 (08:08→22:23)
[2017-12-12] MEDS ORDERED: INSULIN (NOVOLOG) ASPART 100 UNITS/ML 10ML VIAL ONE ×4 (08:08→21:47)
[2017-12-12] MEDS ORDERED: NIFEdipine E.R 60 MG TABLET (UD) PO SCH (10:00)
[2017-12-12] MEDS ORDERED: PATIENT'S OWN MEDICATION (NON-FORMULARY) (Nifedipine [Procardia Xl] 60 MG) PO SCH (10:00)
[2017-12-12 10:03] LABS: HEMATOCRIT 44.5 % (35.4-49); HEMOGLOBIN 15.8 GM/dL (11.7-16.9); MCH 32.9 pg (25.7-33.7); MCHC 35.6 g/dl (32.0-35.9); MEAN CELL VOLUME 92.5 fl (80-96); MEAN PLT VOLUME 9.6 fl (7.5-11.1); PLATELET COUNT 212 K/MM3 (134-434); RBC 4.81 M/mm3 (4.00-5.60); RDW 13.6 % (11.9-15.9)
--- NOTE | 2017-12-12 10:24 | PN ---
[facility] CIWA - CIWA Score Nausea/Vomitin-No Nausea/No Vomiting Muscle Tremors: 4-Moderate,w/Arms Extend Anxiety: 4-Mod. Anxious/Guarded Agitation: 4-Moderately Restless Paroxysmal Sweats: 1-Minimal Palms Moist Orientation: 0-Oriented Tacttile Disturbances: 3-Moderate Itch/Numb/Burn Auditory Disturbances: 0-None Visual Disturbances: 0-None Headache: 0-None Present CIWA-Ar Total Score: 16 BHS Progress Note (SOAP) Subjective: TREMORS, ANXIETY, DIARRHEA, INTERMITTENT SLEEP. Objective: 12/12/17 10:23 Vital Signs Temperature 97.7 F 12/12/17 09:14 Pulse Rate 91 H 12/12/17 09:14 Respiratory Rate 20 12/12/17 09:14 Blood Pressure 106/66 12/12/17 09:14 O2 Sat by Pulse Oximetry (%) Laboratory Last Values WBC 8.0 K/mm3 (4.0-10.0) 12/12/17 07:00 RBC 4.81 M/mm3 (4.00-5.60) 12/12/17 07:00 Hgb 15.8 GM/dL (11.7-16.9) 12/12/17 07:00 Hct 44.5 % (35.4-49) 12/12/17 07:00 MCV 92.5 fl (80-96) 12/12/17 07:00 MCH 32.9 pg (25.7-33.7) 12/12/17 07:00 MCHC 35.6 g/dl (32.0-35.9) 12/12/17 07:00 RDW 13.6 % (11.9-15.9) 12/12/17 07:00 Plt Count 212 K/MM3 (134-434) 12/12/17 07:00 MPV 9.6 fl (7.5-11.1) 12/12/17 07:00 POC Glucometer 433 UNITS (80-120) 12/12/17 06:15 Urine Color Yellow 12/11/17 23:00 Urine Appearance Clear 12/11/17 23:00 Urine pH 6.0 (5.0-8.0) 12/11/17 23:00 Ur Specific [place] 1.017 (1.001-1.035) 12/11/17 23:00 Urine Protein Negative (NEGATIVE) 12/11/17 23:00 Urine Glucose (UA) 1+ (NEGATIVE) H 12/11/17 23:00 Urine Ketones Negative (NEGATIVE) 12/11/17 23:00 Urine Blood Negative (NEGATIVE) 12/11/17 23:00 Urine Nitrite Negative (NEGATIVE) 12/11/17 23:00 Urine Bilirubin Negative (<2.0 mg/dL) 12/11/17 23:00 Urine Urobilinogen Negative mg/dL (0.2-1.0) 12/11/17 23:00 Ur Leukocyte Esterase Negative (NEGATIVE) 12/11/17 23:00 Assessment: 12/12/17 10:23 WITHDRAWAL SX Plan: CONTINUE DETOX IMODIUM PRN
[2017-12-12] MEDS: NICOTINE 14 MG/24 HOURS TOPICAL PATCH TD SCH (10:58)
[2017-12-12] MEDS: PRENATAL VITAMINS W/ FOLIC ACID TABLET (FP) PO SCH (10:58)
[2017-12-12] MEDS: ASPIRIN 81 MG CHEWABLE TABLETS PO SCH (10:58)
[2017-12-12] MEDS: GABAPENTIN 400 MG CAPSULE (FP) PO SCH ×2 (10:58→22:19)
[2017-12-12] MEDS: NIFEdipine E.R 60 MG TABLET (UD) PO SCH (10:58)
[2017-12-12 11:04] LABS: ALBUMIN 3.8 g/dl (3.4-5.0); ANION GAP 12 (8-16); BLOOD UREA NITROGEN 16 mg/dL (7-18); CALCIUM 9.4 mg/dL (8.5-10.1); CHLORIDE 100 mmol/L (98-107); CO2 26 mmol/L (21-32); POTASSIUM 4.4 mmol/L (3.5-5.1); SODIUM 138 mmol/L (136-145)
[2017-12-12 11:11] LABS: ALK PHOS 84 U/L (45-117); BILIRUBIN,TOTAL 0.6 mg/dL (0.2-1.0); CREATININE 1.5 mg/dL (0.7-1.3); SGOT/AST 15 U/L (15-37); SGPT/ALT 19 U/L (12-78); TOT PROT 7.7 g/dl (6.4-8.2)
[2017-12-12] MEDS ORDERED: COLLOIDAL OATMEAL 1 BAR EACH TP PRN (11:50)
[2017-12-12 13:20] LABS: GLUCOSE,RANDOM 411 mg/dL (74-106)
[2017-12-12] MEDS: LOPERAMIDE HCL 2 MG CAPSULE PO PRN (15:24)
--- NOTE | 2017-12-12 16:11 | CONSULT ---
[facility] Psychiatric Consult - Data Date of interview: 12/12/17 Admission source: [facility] Identifying data: Readmission to [facility] for this 52 y/o AA male seeking detox treatment on for alcohol,cocaine (crack) and phencyclidine dependence.Patient is ,a father of five,domiciled,unemployed and currently supported on welfare. Substance Abuse History: Confirmed by patient in this interview.Details in current [facility] report.Smoking history: Current some day smoker. Have you smoked in the past 12 months: No. Aproximately how many cigarettes per day: 3. Hx Chewing Tobacco Use: No. Initiated information on smoking cessation: Yes. ' Breaking Loose' booklet given: 12/11/17. - Substance & Tx. History. Hx Alcohol Use: Yes. Hx Substance Use: Yes. Substance Use Type: Alcohol, Cocaine. Hx Substance Use Treatment: Yes ([facility] - Substances Abused. Cocaine. Route: Smoking. Frequency: Daily. Amount used: $30. Age of first use: 16. Date of Last Use: 12/08/17. Alcohol-vodka/beer. Route: Oral. Frequency: Daily. Amount used: 1 pt./1-6 pk. Age of first use: 8. Date of Last Use: 12/11/17 Medical History: Diabetes mellitus,Dyslipidemia,hypertension,peripheral neuropathy and a history of appendectomy. Psychiatric History: Patient denies. Physical/Sexual Abuse/Trauma History: Patient denies. Additional Comment: Drug Screen Negative: Yes Mental Status Exam - Mental Status Exam Alert and Oriented to: Time, Place, Person Cognitive Function: Good Patient Appearance: Well Groomed Mood: Hopeful, Euthymic Affect: Appropriate, Normal Range Patient Behavior: Fatigued, Appropriate, Cooperative Speech Pattern: Clear, Appropriate Voice Loudness: Normal Thought Process: Intact, Goal Oriented Thought Disorder: Not Present Hallucinations: Denies Suicidal Ideation: Denies Homicidal Ideation: Denies Insight/Judgement: Poor Sleep: Poorly, Difficulty falling asleep Appetite: Good Muscle strength/Tone: Normal Gait/Station: Normal Psychiatric Findings - Problem List ([place] 1, 2,3) (1) Alcohol dependence with uncomplicated withdrawal Current Visit: Yes Status: Acute (2) Cocaine dependence, uncomplicated Current Visit: Yes Status: Acute (3) Phencyclidine dependence Current Visit: Yes Status: Acute (4) Nicotine dependence Current Visit: Yes Status: Acute Qualifiers: Nicotine product type: cigarettes Substance use status: in withdrawal Qualified Code(s): F17.213 - Nicotine dependence, cigarettes, with withdrawal (5) Insomnia Current Visit: Yes Status: Acute - Initial Treatment Plan Initial Treatment Plan: Psychoeducation.Sleep hygiene.Detoxification.Benadryl 50 mg po hs prn.Side effects/benefits discussed with patient.Mr Stevens agrees with careplan.Observation.
[2017-12-12] MEDS: THIAMINE HCL 100 MG TABLET (FP) PO SCH (22:18)
[2017-12-12] MEDS: ATORVASTATIN CA 10 MG TABLET (FP) PO SCH (22:19)
[2017-12-12] MEDS: INSULIN (LEVEMIR) 100 UNITS/ML UNITS SQ SCH (22:23)
[2017-12-12] MEDS: diphenhydrAMINE HCL 25 MG CAPSULE (FP) PO PRN (22:30)
[2017-12-13] MEDS: chlordiazePOXIDE HCL 25 MG CAPSULE PO SCH ×3 (06:14→17:06)
[2017-12-13] MEDS ORDERED: INSULIN (NOVOLOG) ASPART 100 UNITS/ML 10ML VIAL ONE ×4 (07:55→21:09)
[2017-12-13] MEDS: INSULIN SLIDING SCALE (NOVOLOG) 1 VIAL SQ SCH ×4 (08:02→22:28)
--- NOTE | 2017-12-13 09:50 | EKG ---
Test Reason : Blood Pressure : / mmHG Vent. Rate : 088 BPM Atrial Rate : 088 BPM P-R Int : 142 ms QRS Dur : 076 ms QT Int : 336 ms P-R-T Axes : 070 -68 038 degrees QTc Int : 406 ms NORMAL SINUS RHYTHM POSSIBLE LEFT ATRIAL ENLARGEMENT LEFT AXIS DEVIATION POSSIBLE ANTERIOR INFARCT , AGE UNDETERMINED ABNORMAL ECG WHEN COMPARED WITH ECG OF 24-MAY-2017 18:48, NO SIGNIFICANT CHANGE WAS FOUND Confirmed by NITESH ANDUJAR MD ([id number]) on 12/13/2017 9:50:07 AM Referred By: Confirmed By:NITESH ANDUJAR MD
[2017-12-13] MEDS: GABAPENTIN 400 MG CAPSULE (FP) PO SCH ×2 (10:22→22:29)
[2017-12-13] MEDS: NIFEdipine E.R 60 MG TABLET (UD) PO SCH (10:22)
[2017-12-13] MEDS: ASPIRIN 81 MG CHEWABLE TABLETS PO SCH (10:22)
[2017-12-13] MEDS: NICOTINE POLACRILEX 2 MG GUM BC PRN (10:22)
[2017-12-13] MEDS: PRENATAL VITAMINS W/ FOLIC ACID TABLET (FP) PO SCH (10:22)
[2017-12-13] MEDS: NICOTINE 14 MG/24 HOURS TOPICAL PATCH TD SCH (10:22)
--- NOTE | 2017-12-13 11:14 | PN ---
[facility] CIWA - CIWA Score Nausea/Vomitin-No Nausea/No Vomiting Muscle Tremors: 4-Moderate,w/Arms Extend Anxiety: 4-Mod. Anxious/Guarded Agitation: 4-Moderately Restless Paroxysmal Sweats: 1-Minimal Palms Moist Orientation: 0-Oriented Tacttile Disturbances: 0-None Auditory Disturbances: 0-None Visual Disturbances: 0-None Headache: 0-None Present CIWA-Ar Total Score: 13 S Progress Note (SOAP) Subjective: ANXIETY,SWEATS,DIARRHEA-RECEIVED IMODIUM. Objective: 12/13/17 11:14 Vital Signs Temperature 97.7 F 12/13/17 09:06 Pulse Rate 102 H 12/13/17 09:06 Respiratory Rate 18 12/13/17 09:06 Blood Pressure 114/74 12/13/17 09:06 O2 Sat by Pulse Oximetry (%) Laboratory Last Values WBC 8.0 K/mm3 (4.0-10.0) 12/12/17 07:00 RBC 4.81 M/mm3 (4.00-5.60) 12/12/17 07:00 Hgb 15.8 GM/dL (11.7-16.9) 12/12/17 07:00 Hct 44.5 % (35.4-49) 12/12/17 07:00 MCV 92.5 fl (80-96) 12/12/17 07:00 MCH 32.9 pg (25.7-33.7) 12/12/17 07:00 MCHC 35.6 g/dl (32.0-35.9) 12/12/17 07:00 RDW 13.6 % (11.9-15.9) 12/12/17 07:00 Plt Count 212 K/MM3 (134-434) 12/12/17 07:00 MPV 9.6 fl (7.5-11.1) 12/12/17 07:00 Sodium 138 mmol/L (136-145) 12/12/17 07:00 Potassium 4.4 mmol/L (3.5-5.1) 12/12/17 07:00 Chloride 100 mmol/L (98-107) 12/12/17 07:00 Carbon Dioxide 26 mmol/L (21-32) 12/12/17 07:00 Anion Gap 12 (8-16) 12/12/17 07:00 BUN 16 mg/dL (7-18) 12/12/17 07:00 Creatinine 1.5 mg/dL (0.7-1.3) H 12/12/17 07:00 Creat Clearance w eGFR 48.95 (>60) 12/12/17 07:00 POC Glucometer 351 UNITS (80-120) 12/13/17 06:11 Random Glucose 411 mg/dL (74-106) H* D 12/12/17 07:00 Calcium 9.4 mg/dL (8.5-10.1) 12/12/17 07:00 Total Bilirubin 0.6 mg/dL (0.2-1.0) D 12/12/17 07:00 AST 15 U/L (15-37) D 12/12/17 07:00 ALT 19 U/L (12-78) D 12/12/17 07:00 Alkaline Phosphatase 84 U/L (45-117) 12/12/17 07:00 Total Protein 7.7 g/dl (6.4-8.2) 12/12/17 07:00 Albumin 3.8 g/dl (3.4-5.0) 12/12/17 07:00 Urine Color Yellow 12/11/17 23:00 Urine Appearance Clear 12/11/17 23:00 Urine pH 6.0 (5.0-8.0) 12/11/17 23:00 Ur Specific [place] 1.017 (1.001-1.035) 12/11/17 23:00 Urine Protein Negative (NEGATIVE) 12/11/17 23:00 Urine Glucose (UA) 1+ (NEGATIVE) H 12/11/17 23:00 Urine Ketones Negative (NEGATIVE) 12/11/17 23:00 Urine Blood Negative (NEGATIVE) 12/11/17 23:00 Urine Nitrite Negative (NEGATIVE) 12/11/17 23:00 Urine Bilirubin Negative (<2.0 mg/dL) 12/11/17 23:00 Urine Urobilinogen Negative mg/dL (0.2-1.0) 12/11/17 23:00 Ur Leukocyte Esterase Negative (NEGATIVE) 12/11/17 23:00 Assessment: 12/13/17 11:14 WITHDRAWAL SX Plan: CONTINUE DETOX LOMOTIL IF IMODIUM NOT EFFECTIVE.
[2017-12-13] MEDS: LOPERAMIDE HCL 2 MG CAPSULE PO PRN (19:40)
[2017-12-13] MEDS: THIAMINE HCL 100 MG TABLET (FP) PO SCH (22:28)
[2017-12-13] MEDS: INSULIN (LEVEMIR) 100 UNITS/ML UNITS SQ SCH (22:28)
[2017-12-13] MEDS: chlordiazePOXIDE 5 MG CAPSULE PO SCH (22:29)
[2017-12-13] MEDS: ATORVASTATIN CA 10 MG TABLET (FP) PO SCH (22:29)
[2017-12-13] MEDS: diphenhydrAMINE HCL 25 MG CAPSULE (FP) PO PRN (22:29)
[2017-12-14] MEDS: chlordiazePOXIDE 5 MG CAPSULE PO SCH ×3 (06:06→17:04)
[2017-12-14] MEDS ORDERED: INSULIN (NOVOLOG) ASPART 100 UNITS/ML 10ML VIAL ONE ×4 (07:48→22:06)
[2017-12-14] MEDS: INSULIN SLIDING SCALE (NOVOLOG) 1 VIAL SQ SCH ×4 (07:52→22:27)
[2017-12-14] MEDS: ASPIRIN 81 MG CHEWABLE TABLETS PO SCH (10:29)
[2017-12-14] MEDS: NICOTINE 14 MG/24 HOURS TOPICAL PATCH TD SCH (10:29)
[2017-12-14] MEDS: GABAPENTIN 400 MG CAPSULE (FP) PO SCH ×2 (10:29→22:25)
[2017-12-14] MEDS: NIFEdipine E.R 60 MG TABLET (UD) PO SCH (10:29)
[2017-12-14] MEDS: PRENATAL VITAMINS W/ FOLIC ACID TABLET (FP) PO SCH (10:29)
[2017-12-14] MEDS: LOPERAMIDE HCL 2 MG CAPSULE PO PRN (10:37)
--- NOTE | 2017-12-14 11:06 | PN ---
S Progress Note (SOAP) Subjective: ANXIETY,IRRITABILITY,PAIN AND CHRONIC FEET NUMBNESS--HX NEUROPATHY AND ON GABAPENTIN. Objective: 12/14/17 11:05 Vital Signs Temperature 96.8 F L 12/14/17 09:16 Pulse Rate 111 H 12/14/17 09:16 Respiratory Rate 18 12/14/17 09:16 Blood Pressure 110/79 12/14/17 09:16 O2 Sat by Pulse Oximetry (%) Laboratory Last Values WBC 8.0 K/mm3 (4.0-10.0) 12/12/17 07:00 RBC 4.81 M/mm3 (4.00-5.60) 12/12/17 07:00 Hgb 15.8 GM/dL (11.7-16.9) 12/12/17 07:00 Hct 44.5 % (35.4-49) 12/12/17 07:00 MCV 92.5 fl (80-96) 12/12/17 07:00 MCH 32.9 pg (25.7-33.7) 12/12/17 07:00 MCHC 35.6 g/dl (32.0-35.9) 12/12/17 07:00 RDW 13.6 % (11.9-15.9) 12/12/17 07:00 Plt Count 212 K/MM3 (134-434) 12/12/17 07:00 MPV 9.6 fl (7.5-11.1) 12/12/17 07:00 Sodium 138 mmol/L (136-145) 12/12/17 07:00 Potassium 4.4 mmol/L (3.5-5.1) 12/12/17 07:00 Chloride 100 mmol/L (98-107) 12/12/17 07:00 Carbon Dioxide 26 mmol/L (21-32) 12/12/17 07:00 Anion Gap 12 (8-16) 12/12/17 07:00 BUN 16 mg/dL (7-18) 12/12/17 07:00 Creatinine 1.5 mg/dL (0.7-1.3) H 12/12/17 07:00 Creat Clearance w eGFR 48.95 (>60) 12/12/17 07:00 POC Glucometer 333 UNITS (80-120) 12/14/17 06:14 Random Glucose 411 mg/dL (74-106) H* D 12/12/17 07:00 Calcium 9.4 mg/dL (8.5-10.1) 12/12/17 07:00 Total Bilirubin 0.6 mg/dL (0.2-1.0) D 12/12/17 07:00 AST 15 U/L (15-37) D 12/12/17 07:00 ALT 19 U/L (12-78) D 12/12/17 07:00 Alkaline Phosphatase 84 U/L (45-117) 12/12/17 07:00 Total Protein 7.7 g/dl (6.4-8.2) 12/12/17 07:00 Albumin 3.8 g/dl (3.4-5.0) 12/12/17 07:00 Urine Color Yellow 12/11/17 23:00 Urine Appearance Clear 12/11/17 23:00 Urine pH 6.0 (5.0-8.0) 12/11/17 23:00 Ur Specific [place] 1.017 (1.001-1.035) 12/11/17 23:00 Urine Protein Negative (NEGATIVE) 12/11/17 23:00 Urine Glucose (UA) 1+ (NEGATIVE) H 12/11/17 23:00 Urine Ketones Negative (NEGATIVE) 12/11/17 23:00 Urine Blood Negative (NEGATIVE) 12/11/17 23:00 Urine Nitrite Negative (NEGATIVE) 12/11/17 23:00 Urine Bilirubin Negative (<2.0 mg/dL) 12/11/17 23:00 Urine Urobilinogen Negative mg/dL (0.2-1.0) 12/11/17 23:00 Ur Leukocyte Esterase Negative (NEGATIVE) 12/11/17 23:00 RPR Titer Nonreactive (NONREACTIVE) 12/12/17 07:00 Assessment: 12/14/17 11:05 WITHDRAWAL SX Plan: CONTINUE DETOX INCREASE PO FLUIDS TO FOLLOW UP WITH PMD DR. NIA PHILIPPE AT [address], [place] /NEUROLOGY AFTER DETOX [place].
[2017-12-14] MEDS: THIAMINE HCL 100 MG TABLET (FP) PO SCH (22:25)
[2017-12-14] MEDS: ATORVASTATIN CA 10 MG TABLET (FP) PO SCH (22:25)
[2017-12-14] MEDS: chlordiazePOXIDE HCL 10 MG CAPSULE PO SCH (22:25)
[2017-12-14] MEDS: INSULIN (LEVEMIR) 100 UNITS/ML UNITS SQ SCH (22:28)
[2017-12-14] MEDS: diphenhydrAMINE HCL 25 MG CAPSULE (FP) PO PRN (22:32)
[2017-12-15] MEDS: chlordiazePOXIDE HCL 10 MG CAPSULE PO SCH ×2 (05:27→10:21)
[2017-12-15] MEDS ORDERED: INSULIN (NOVOLOG) ASPART 100 UNITS/ML 10ML VIAL ONE ×2 (05:29→11:08)
[2017-12-15] MEDS: LOPERAMIDE HCL 2 MG CAPSULE PO PRN (05:51)
[2017-12-15] MEDS: INSULIN SLIDING SCALE (NOVOLOG) 1 VIAL SQ SCH ×2 (07:35→11:08)
--- NOTE | 2017-12-15 08:38 | DS ---
[facility] Detox Discharge Summary Admission Date: 12/11/17 Discharge Date: 12/15/17 - History Present History: Alcohol Dependence, Cocaine Dependence Additional Comments: DETOX COMPLETED. ALERT O X 3. NAD. Pertinent Past History: PLEASE SEE DX BELOW - Physical Exam Results Vital Signs: Vital Signs Temperature 96.4 F L 12/15/17 06:10 Pulse Rate 105 H 12/15/17 06:10 Respiratory Rate 18 12/15/17 06:10 Blood Pressure 119/78 12/15/17 06:10 O2 Sat by Pulse Oximetry (%) Pertinent Admission Physical Exam Findings: WITHDRAWAL SX Laboratory Tests 12/11/17 12/11/17 12/11/17 17:48 21:30 23:00 WBC RBC Hgb Hct MCV MCH MCHC RDW Plt Count MPV Sodium Potassium Chloride Carbon Dioxide Anion Gap BUN Creatinine Creat Clearance w eGFR POC Glucometer 508 > 600 Random Glucose Calcium Total Bilirubin AST ALT Alkaline Phosphatase Total Protein Albumin Urine Color Yellow Urine Appearance Clear Urine pH 6.0 Ur Specific [place] 1.017 Urine Protein Negative Urine Glucose (UA) 1+ H Urine Ketones Negative Urine Blood Negative Urine Nitrite Negative Urine Bilirubin Negative Urine Urobilinogen Negative Ur Leukocyte Esterase Negative RPR Titer 12/11/17 12/12/17 12/12/17 23:23 06:15 07:00 WBC 8.0 RBC 4.81 Hgb 15.8 Hct 44.5 MCV 92.5 MCH 32.9 MCHC 35.6 RDW 13.6 Plt Count 212 MPV 9.6 Sodium Potassium Chloride Carbon Dioxide Anion Gap BUN Creatinine Creat Clearance w eGFR POC Glucometer 458 433 Random Glucose Calcium Total Bilirubin AST ALT Alkaline Phosphatase Total Protein Albumin Urine Color Urine Appearance Urine pH Ur Specific [place] Urine Protein Urine Glucose (UA) Urine Ketones Urine Blood Urine Nitrite Urine Bilirubin Urine Urobilinogen Ur Leukocyte Esterase RPR Titer 12/12/17 12/12/17 12/12/17 07:00 07:00 11:32 WBC RBC Hgb Hct MCV MCH MCHC RDW Plt Count MPV Sodium 138 Potassium 4.4 Chloride 100 Carbon Dioxide 26 Anion Gap 12 BUN 16 Creatinine 1.5 H Creat Clearance w eGFR 48.95 POC Glucometer 541 Random Glucose 411 H* D Calcium 9.4 Total Bilirubin 0.6 D AST 15 D ALT 19 D Alkaline Phosphatase 84 Total Protein 7.7 Albumin 3.8 Urine Color Urine Appearance Urine pH Ur Specific [place] Urine Protein Urine Glucose (UA) Urine Ketones Urine Blood Urine Nitrite Urine Bilirubin Urine Urobilinogen Ur Leukocyte Esterase RPR Titer Nonreactive 12/12/17 12/12/17 12/13/17 16:19 21:28 06:11 WBC RBC Hgb Hct MCV MCH MCHC RDW Plt Count MPV Sodium Potassium Chloride Carbon Dioxide Anion Gap BUN Creatinine Creat Clearance w eGFR POC Glucometer 441 514 351 Random Glucose Calcium Total Bilirubin AST ALT Alkaline Phosphatase Total Protein Albumin Urine Color Urine Appearance Urine pH Ur Specific [place] Urine Protein Urine Glucose (UA) Urine Ketones Urine Blood Urine Nitrite Urine Bilirubin Urine Urobilinogen Ur Leukocyte Esterase RPR Titer 12/13/17 12/13/17 12/14/17 16:18 20:40 06:14 WBC RBC Hgb Hct MCV MCH MCHC RDW Plt Count MPV Sodium Potassium Chloride Carbon Dioxide Anion Gap BUN Creatinine Creat Clearance w eGFR POC Glucometer 284 546 333 Random Glucose Calcium Total Bilirubin AST ALT Alkaline Phosphatase Total Protein Albumin Urine Color Urine Appearance Urine pH Ur Specific [place] Urine Protein Urine Glucose (UA) Urine Ketones Urine Blood Urine Nitrite Urine Bilirubin Urine Urobilinogen Ur Leukocyte Esterase RPR Titer 12/14/17 12/15/17 16:15 05:27 WBC RBC Hgb Hct MCV MCH MCHC RDW Plt Count MPV Sodium Potassium Chloride Carbon Dioxide Anion Gap BUN Creatinine Creat Clearance w eGFR POC Glucometer 300 416 Random Glucose Calcium Total Bilirubin AST ALT Alkaline Phosphatase Total Protein Albumin Urine Color Urine Appearance Urine pH Ur Specific [place] Urine Protein Urine Glucose (UA) Urine Ketones Urine Blood Urine Nitrite Urine Bilirubin Urine Urobilinogen Ur Leukocyte Esterase RPR Titer - Treatment Hospital Course: Detox Protocol Followed, Detoxed Safely, Responded well, Discharged Condition Good - Medication Discharge Medications: Ambulatory Orders Linaclotide [Linzess] 145 mcg PO DAILY 05/24/17 Aspirin [ASA -] 81 mg PO DAILY #30 tab.chew 06/22/17 Atorvastatin Calcium 10 mg PO HS #30 tablet 06/22/17 Diphenhydramine [Benadryl -] 100 mg PO HS #60 capsule 06/22/17 Nifedipine [Procardia Xl] 60 mg PO DAILY #30 tab.er.24 06/22/17 Gabapentin 800 mg PO BID 12/11/17 Insulin (Novolog) [Novolog Flexpen] 0 units SQ TID 04/30/18 Insulin Glargine,Hum.rec.anlog [Lantus Solostar PEN (NF)] 45 units SQ BID - Diagnosis (1) DIABETES TYPE 2 Current Visit: Yes Status: Chronic (2) HLD (hyperlipidemia) Current Visit: Yes Status: Chronic Qualifiers: Hyperlipidemia type: unspecified Qualified Code(s): E78.5 - Hyperlipidemia , unspecified (3) Alcohol dependence with uncomplicated withdrawal Current Visit: Yes Status: Acute (4) Cocaine dependence, uncomplicated Current Visit: Yes Status: Acute (5) Essential (primary) hypertension Current Visit: Yes Status: Chronic (6) Nicotine dependence Current Visit: Yes Status: Acute Qualifiers: Nicotine product type: cigarettes Substance use status: in withdrawal Qualified Code(s): F17.213 - Nicotine dependence, cigarettes, with withdrawal (7) Peripheral neuropathy Current Visit: Yes Status: Chronic Qualifiers: Peripheral neuropathy type: polyneuropathy, unspecified Qualified Code(s): G62.9 - Polyneuropathy, unspecified (8) Arthritis of right knee Current Visit: Yes Status: Acute (9) Chronic low back pain Current Visit: Yes Status: Chronic Qualifiers: Back pain laterality: unspecified - AMA Did Patient Leave Against Medical Advice: No
[2017-12-15] MEDS: PRENATAL VITAMINS W/ FOLIC ACID TABLET (FP) PO SCH (09:32)
[2017-12-15] MEDS: GABAPENTIN 400 MG CAPSULE (FP) PO SCH (09:32)
[2017-12-15] MEDS: ASPIRIN 81 MG CHEWABLE TABLETS PO SCH (09:32)
[2017-12-15] MEDS: NIFEdipine E.R 60 MG TABLET (UD) PO SCH (09:32)
[2017-12-15] MEDS: NICOTINE 14 MG/24 HOURS TOPICAL PATCH TD SCH (09:33)
[2017-12-15 09:58] VITALS: BP 108/69; PULSE 100; TEMP 96
[2017-12-15] MEDS: NICOTINE POLACRILEX 2 MG GUM BC PRN (10:25)
== END 2017-12-15 12:05 | disposition other institution (70) | DRG 774 ==
LOC: YASAS 14:15 → Y3N 18:25
PROVIDERS: ADMIT Internal Medicine; ATTEND Internal Medicine
PROC: HZ2ZZZZ Detoxification Services for Substance Abuse Treatment (ICD-10-PCS; principal; 2017-12-11)
DX: F10.230 Alcohol dependence with withdrawal, uncomplicated (principal); F14.20 Cocaine dependence, uncomplicated; F16.20 Hallucinogen dependence, uncomplicated; F17.210 Nicotine dependence, cigarettes, uncomplicated; I10 Essential (primary) hypertension; E78.5 Hyperlipidemia, unspecified; E11.9 Type 2 diabetes mellitus without complications; Z79.4 Long term (current) use of insulin; G47.00 Insomnia, unspecified; G62.9 Polyneuropathy, unspecified; M54.5 Low back pain; M17.11 Unilateral primary osteoarthritis, right knee; M17.12 Unilateral primary osteoarthritis, left knee; R68.2 Dry mouth, unspecified
CPT/HCPCS: 36415; 80053; 81003; 82962; 85027; 86593; 93005; 93010

== ENCOUNTER 2018-05-22 11:58 | Inpatient (IN) | payer OTHER ==
[2018-05-22 13:05] VITALS: BMI 27.3
--- NOTE | 2018-05-22 15:08 | HP ---
CIWA Score - CIWA Score Nausea/Vomitin Muscle Tremors: 3 Anxiety: 3 Agitation: 2 Paroxysmal Sweats: 1-Minimal Palms Moist Orientation: 0-Oriented Tacttile Disturbances: 1-Very Mild Itch/Numbness Auditory Disturbances: 1-Very Mild Visual Disturbances: 1-Very Mild Sensitivity Headache: 2-Mild CIWA-Ar Total Score: 17 Admission ROS BHS - HPI Chief Complaint: i need help to stop drinking alcohol and cocaine Allergies/Adverse Reactions: Allergies Allergy/AdvReac Type Severity Reaction Status Date / Time Penicillins Allergy Severe Rash Verified 05/22/18 15:02 pork derived (porcine) Allergy Severe Hives Verified 05/22/18 15:02 History of Present Illness: this 53 years old male with alcohol and cocaine dependence,seekig detox, withdrawal symptom,last detox [facility] 12/11/17 to 12/15/17 rehab 02/16/18 to 02/19/18 not completed history of htn,type 2 dm on insulin dependence,hyperlipiidemia,peripheral neuropathy prostate cancer for 2 years nicotine dependence multiple admissions in detox,keep relapsing Exam Limitations: No Limitations - Ebola screening Have you traveled outside of the country in the last 21 days: No Have you had contact with anyone from an Ebola affected area: No Have you been sick,other than usual withdrawal symptoms: No Do you have a fever: No - Review of Systems Constitutional: Chills, Loss of Appetite, Malaise, Night Sweats, Changes in sleep, Weakness, Unintentional Wgt. Loss EENT: reports: Nose Congestion Respiratory: reports: No Symptoms reported Cardiac: reports: Palpitations GI: reports: Diarrhea, Nausea, Vomiting Musculoskeletal: reports: Back Pain, Muscle Pain Integumentary: reports: Dryness Neuro: reports: Headache, Tremors Endocrine: reports: No Symptoms Reported Hematology: reports: No Symptoms Reported Psychiatric: reports: No Sypmtoms Reported, Judgement Intact, Mood/Affect Appropiate, Orientated x3 Patient History - Patient Medical History Hx Anemia: No Hx Asthma: No Hx Chronic Obstructive Pulmonary Disease (COPD): No Hx Cancer: No Hx Cardiac Disorders: No Hx Congestive Heart Failure: No Hx Hypertension: Yes (on med) Hx Hypercholesterolemia: Yes (on med) Hx Pacemaker: No HX Cerebrovascular Accident: No Hx Seizures: No Hx Dementia: No Hx Diabetes: Yes (IDDM) Hx Gastrointestinal Disorders: No Hx Liver Disease: No Hx Genitourinary Disorders: No Hx Sexually Transmitted Disorders: No Hx Renal Disease (ESRD): No Hx Thyroid Disease: No Hx Human Immunodeficiency Virus (HIV): No Hx Hepatitis C: No Hx Depression: Yes (anxiety,insomnia) Hx Suicide Attempt: No Hx Bipolar Disorder: No Hx Schizophrenia: No Other Medical History: no sucidal,no homicidal - Patient Surgical History Past Surgical History: Yes Hx Neurologic Surgery: No Hx Cataract Extraction: No Hx Cardiac Surgery: No Hx Lung Surgery: No Hx Breast Surgery: No Hx Breast Biopsy: No Hx Abdominal Surgery: No Hx Appendectomy: Yes (1985) Hx Cholecystectomy: No Hx Genitourinary Surgery: No Hx Section: No Hx Orthopedic Surgery: No Anesthesia Reaction: No - PPD History Previous Implant?: Yes Documented Results: Negative w/o proof Implanted On Prior [facility] Admission?: Yes Date: 05/26/17 Results: 0 mm PPD to be Administered?: Yes - Smoking Cessation Smoking history: Current every day smoker Have you smoked in the past 12 months: Yes Aproximately how many cigarettes per day: 10 Hx Chewing Tobacco Use: No Initiated information on smoking cessation: Yes 'Breaking Loose' booklet given: 05/22/18 - Substance & Tx. History Hx Alcohol Use: Yes Hx Substance Use: Yes Substance Use Type: Alcohol, Cocaine Hx Substance Use Treatment: Yes ([facility] 12/11/17 to 12/15/17 detox,rehab 02/16/18 to 02/19/18 not completed) - Substances Abused Alcohol Route: Oral Frequency: Daily Amount used: 1/2 pint cognac Age of first use: 8 Date of Last Use: 05/21/18 Cocaine Route: Inhalation Frequency: Daily Amount used: 1 gram Age of first use: 16 Date of Last Use: 05/21/18 PCP Route: Smoking Frequency: 1-2 times per week Amount used: 1 bag Age of first use: 19 Date of Last Use: 05/19/18 Family Disease History - Family Disease History Family Disease History: Diabetes: Mother, Other: Father (alcohol) Admission Physical Exam BHS - Vital Signs Vital Signs: Vital Signs - 24 hr 05/22/18 13:02 Temperature 98 F Pulse Rate 103 H Respiratory 19 Rate Blood Pressure 132/102 H - Physical General Appearance: Yes: Moderate Distress, Tremorous, Irritable, Sweating, Anxious HEENTM: Yes: Normal ENT Inspection, AMY, Pharynx Normal Respiratory: Yes: Lungs Clear, Normal Breath Sounds, No Respiratory Distress Neck: Yes: Within Normal Limits Breast: Yes: Within Normal Limits Cardiology: Yes: Tachycardia Abdominal: Yes: Normal Bowel Sounds, Soft Genitourinary: Yes: Within Normal Limits Back: Yes: Muscle Spasm Musculoskeletal: Yes: Back pain, Muscle Pain Extremities: Yes: Tremors Neurological: Yes: data lead II-XII NML intact, Fully Oriented, Alert, Motor Strength 5/5 Integumentary: Yes: Dry Lymphatic: Yes: Within Normal Limits - Diagnostic (1) Alcohol dependence with uncomplicated withdrawal Current Visit: No Status: Acute (2) Cocaine dependence Current Visit: No Status: Acute (3) Essential hypertension Current Visit: No Status: Acute (4) History of appendectomy Current Visit: No Status: Acute (5) Nicotine dependence Current Visit: No Status: Acute Qualifiers: Nicotine product type: cigarettes Substance use status: in withdrawal Qualified Code(s): F17.213 - Nicotine dependence, cigarettes, with withdrawal (6) PCP dependence Current Visit: No Status: Acute (7) DIABETES TYPE 2 Current Visit: No Status: Chronic (8) Essential (primary) hypertension Current Visit: No Status: Chronic (9) HLD (hyperlipidemia) Current Visit: No Status: Chronic Qualifiers: Hyperlipidemia type: unspecified Qualified Code(s): E78.5 - Hyperlipidemia , unspecified (10) Peripheral neuropathy Current Visit: No Status: Chronic Qualifiers: Peripheral neuropathy type: polyneuropathy, unspecified Qualified Code(s): G62.9 - Polyneuropathy, unspecified (11) IDDM (insulin dependent diabetes mellitus) Current Visit: Yes Status: Acute (12) Prostatic cancer Current Visit: Yes Status: Acute Cleared for Admission BHS - Detox or Rehab S Level of Care: Medically Managed Detox Regimen/Protocol: Librium BHS Breath Alcohol Content Breath Alcohol Content: 0
[2018-05-22] MEDS ORDERED: P-EPHED 60MG/TRIPROLIDI 2.5MG TABLET PO PRN (15:35)
[2018-05-22] MEDS ORDERED: chlordiazePOXIDE HCL 25 MG CAPSULE PO PRN (15:35)
[2018-05-22] MEDS ORDERED: LOPERAMIDE HCL 2 MG CAPSULE PO PRN (15:35)
[2018-05-22] MEDS ORDERED: MENTHOL/PHENOL 1 EACH UD MM PRN (15:35)
[2018-05-22] MEDS ORDERED: MAGNESIUM CITRATE 300 ML BOTTLE PO PRN (15:35)
[2018-05-22] MEDS ORDERED: MAG HYDROX/AL HYDROX/SIMETH 30 ML UNIT-DOSE CUP PO PRN (15:35)
[2018-05-22] MEDS ORDERED: ACETAMINOPHEN 325 MG TABLET (FP) PO PRN (15:35)
[2018-05-22] MEDS ORDERED: guaiFENesin/D-METHORPHAN HB 10 ML UNIT-DOSE CUPS PO PRN (15:35)
[2018-05-22] MEDS ORDERED: hydrOXYzine PAMOATE 25 MG CAPSULE (FP) PO PRN (15:35)
[2018-05-22] MEDS ORDERED: MAGNESIUM HYDROX 2400MG/30ML ORAL SUSPENSION 30 ML CUP PO PRN (15:35)
[2018-05-22] MEDS ORDERED: INSULIN (NOVOLOG) ASPART 100 UNITS/ML 10ML VIAL ONE (18:21)
[2018-05-22] MEDS: INSULIN (NOVOLOG) ASPART 100 UNITS/ML 10ML VIAL SQ SCH ×2 (18:24→23:22)
[2018-05-22] MEDS: NICOTINE 21 MG/24 HOURS TOPICAL PATCH TD SCH (18:24)
[2018-05-22] MEDS: GABAPENTIN 400 MG CAPSULE (FP) PO SCH (22:56)
[2018-05-22] MEDS: ATORVASTATIN CA 40 MG TABLET (FP) PO SCH (22:56)
[2018-05-22] MEDS: chlordiazePOXIDE HCL 25 MG CAPSULE PO SCH (22:56)
[2018-05-22] MEDS: CALCIUM 500MG/VIT-D 200 UNITS COMBO TABLET (FP) PO SCH (22:56)
[2018-05-22] MEDS: THIAMINE HCL 100 MG TABLET (FP) PO SCH (22:56)
[2018-05-22] MEDS: FLUOCINONIDE 0.05% CREAM (15 GM TUBE) TP SCH (22:57)
[2018-05-22] MEDS: INSULIN (LEVEMIR) 100 UNITS/ML UNITS SQ SCH (22:59)
[2018-05-22] MEDS: MELATONIN 5 MG TABLETS PO PRN (23:36)
[2018-05-23] MEDS: chlordiazePOXIDE HCL 25 MG CAPSULE PO SCH ×4 (05:12→22:29)
[2018-05-23] MEDS ORDERED: INSULIN (NOVOLOG) ASPART 100 UNITS/ML 10ML VIAL ONE (08:03)
[2018-05-23] MEDS: INSULIN (NOVOLOG) ASPART 100 UNITS/ML 10ML VIAL SQ SCH ×7 (08:16→21:55)
[2018-05-23] MEDS: GABAPENTIN 400 MG CAPSULE (FP) PO SCH ×2 (09:46→22:29)
[2018-05-23] MEDS: ASPIRIN 81 MG CHEWABLE TABLETS PO SCH (09:46)
[2018-05-23] MEDS: NIFEdipine E.R 60 MG TABLET (UD) PO SCH (09:46)
[2018-05-23] MEDS: PRENATAL VITAMINS W/ FOLIC ACID TABLET (FP) PO SCH (09:46)
[2018-05-23] MEDS: INSULIN (LEVEMIR) 100 UNITS/ML UNITS SQ SCH ×2 (09:46→22:33)
[2018-05-23] MEDS: FLUOCINONIDE 0.05% CREAM (15 GM TUBE) TP SCH ×2 (09:47→22:29)
[2018-05-23] MEDS: NICOTINE 21 MG/24 HOURS TOPICAL PATCH TD SCH (09:47)
[2018-05-23] MEDS: CALCIUM 500MG/VIT-D 200 UNITS COMBO TABLET (FP) PO SCH ×2 (09:47→22:29)
--- NOTE | 2018-05-23 09:51 | EKG ---
Test Reason : Blood Pressure : / mmHG Vent. Rate : 067 BPM Atrial Rate : 067 BPM P-R Int : 148 ms QRS Dur : 078 ms QT Int : 344 ms P-R-T Axes : 067 -52 050 degrees QTc Int : 363 ms NORMAL SINUS RHYTHM WITH SINUS ARRHYTHMIA LEFT AXIS DEVIATION CANNOT RULE OUT ANTERIOR INFARCT (CITED ON OR BEFORE 11-DEC-2017) ABNORMAL ECG WHEN COMPARED WITH ECG OF 16-FEB-2018 15:44, QT HAS SHORTENED Confirmed by PRATIMA GALARZA, NITESH ([id number]) on 05/23/2018 9:50:57 AM Referred By: Confirmed By:NITESH ANDUJAR MD
--- NOTE | 2018-05-23 09:53 | PN ---
S CIWA - CIWA Score Nausea/Vomitin-No Nausea/No Vomiting Muscle Tremors: 3 Anxiety: 3 Agitation: 3 Paroxysmal Sweats: No Perspiration Orientation: 0-Oriented Tacttile Disturbances: 2-Mild Itch/Numbness/Burn Auditory Disturbances: 0-None Visual Disturbances: 0-None Headache: 0-None Present CIWA-Ar Total Score: 11 BHS Progress Note (SOAP) Subjective: PATIENT ANXIOUS, CONCERNED ABOUT TREATMENT FOR HIS PROSTATE CANCER. C/O SHAKES, NUMBNESS TO HANDS/FEET. Vital Signs Temperature 96.7 F L 05/23/18 09:34 Pulse Rate 87 05/23/18 09:34 Respiratory Rate 18 05/23/18 09:34 Blood Pressure 107/71 05/23/18 09:34 O2 Sat by Pulse Oximetry (%) Vital Signs Temperature 96.7 F L 05/23/18 09:34 Pulse Rate 87 05/23/18 09:34 Respiratory Rate 18 05/23/18 09:34 Blood Pressure 107/71 05/23/18 09:34 O2 Sat by Pulse Oximetry (%) Laboratory Tests 05/22/18 05/22/18 05/22/18 15:32 18:16 21:13 POC Glucometer 458 346 153 05/23/18 05:12 POC Glucometer 306 Objective: 05/23/18 09:52 SKIN WARM AND DRY ALERT AND ORIENTED X 3 IN NAD EXT FULL ROM, +TREMORS +ANXIETY Assessment: 05/23/18 09:52 WITHDRAWAL SYNDROME Plan: ENCOURAGE ORAL FLUIDS CONTINUE DETOX DIET MODIFICATIONS REVIEWED REGARDING DM CONTINUE TO MONITOR CLINICALLY
[2018-05-23] MEDS: NICOTINE POLACRILEX 2 MG GUM BC PRN ×3 (10:02→22:52)
[2018-05-23 10:08] LABS: HEMATOCRIT 47.8 % (35.4-49); HEMOGLOBIN 16.4 GM/dL (11.7-16.9); MCH 32.2 pg (25.7-33.7); MCHC 34.2 g/dl (32.0-35.9); MEAN CELL VOLUME 94.1 fl (80-96); MEAN PLT VOLUME 9.6 fl (7.5-11.1); PLATELET COUNT 265 K/MM3 (134-434); RBC 5.08 M/mm3 (4.00-5.60); RDW 13.1 % (11.9-15.9); WHITE BLOOD COUNT 8.7 K/mm3 (4.0-10.0)
[2018-05-23 10:25] LABS: ALBUMIN 3.6 g/dl (3.4-5.0); ALK PHOS 80 U/L (45-117); ANION GAP 7 MMOL/L (8-16); BILIRUBIN,TOTAL 0.8 mg/dL (0.2-1); BLOOD UREA NITROGEN 13 mg/dL (7-18); CALCIUM 9.3 mg/dL (8.5-10.1); CHLORIDE 101 mmol/L (98-107); CO2 27 mmol/L (21-32); CREATININE 1.5 mg/dL (0.55-1.3); POTASSIUM 4.2 mmol/L (3.5-5.1); SGOT/AST 19 U/L (15-37); SGPT/ALT 25 U/L (13-61); SODIUM 135 mmol/L (136-145); TOT PROT 7.3 g/dl (6.4-8.2)
[2018-05-23 10:28] LABS: GLUCOSE,RANDOM 471 mg/dL (74-106)
[2018-05-23] MEDS ORDERED: COLLOIDAL OATMEAL 1 BAR EACH TP PRN (11:02)
--- NOTE | 2018-05-23 14:43 | CONSULT ---
[facility] Psychiatric Consult - Data Date of interview: 05/23/18 Identifying data: This is one of several admissions to [facility] for this 53 y/ o AA male seeking detoxification treatment on for alcohol,cocaine (crack ) and phencyclidine dependence.Patient is ,a father of five,domiciled, unemployed and currently supported on welfare. Substance Abuse History: Confirmed by the patient in this interview. Details in current [facility] report as follows : Smoking history: Current every day smoker. Have you smoked in the past 12 months: Yes. Aproximately how many cigarettes per day: 10. Hx Chewing Tobacco Use: No. Initiated information on smoking cessation: Yes. 'Breaking Loose' booklet given: 05/22/18. - Substance & Tx. History. Hx Alcohol Use: Yes. Hx Substance Use: Yes. Substance Use Type: Alcohol, Cocaine. Hx Substance Use Treatment: Yes ([facility] 12/11/17 to 12/15/17 detox,rehab 02/16/18 to 02/19/18 not completed). - Substances Abused. Alcohol. Route: Oral. Frequency: Daily. Amount used: 1/2 pint cognac. Age of first use: 8. Date of Last Use: 05/21/18. Cocaine. Route: Inhalation. Frequency: Daily. Amount used: 1 gram. Age of first use: 16. Date of Last Use : 05/21/18. PCP. Route: Smoking. Frequency: 1-2 times per week. Amount used: 1 bag. Age of first use: 19. Date of Last Use: 05/19/18 Medical History: Cancer of prostate,diabetes mellitus,Dyslipidemia,hypertension, peripheral neuropathy and a history of appendectomy. Psychiatric History: Patient denies history of psychiatric hospitalizations or suicide attempts. Mr Stevens sees a therapist twice a week at [facility] in [facility]. Physical/Sexual Abuse/Trauma History: Patient denies. Additional Comment: Toxicology not available. Mental Status Exam - Mental Status Exam Alert and Oriented to: Time, Place, Person Cognitive Function: Good Patient Appearance: Well Groomed Mood: Hopeful, Euthymic Affect: Appropriate, Normal Range Patient Behavior: Fatigued, Cooperative Speech Pattern: Clear Voice Loudness: Normal Thought Process: Intact, Goal Oriented Thought Disorder: Not Present Hallucinations: Denies Suicidal Ideation: Denies Homicidal Ideation: Denies Insight/Judgement: Poor Sleep: Well Appetite: Good Muscle strength/Tone: Normal Gait/Station: Normal Psychiatric Findings - Problem List ([place] 1, 2,3) (1) Alcohol dependence with uncomplicated withdrawal Current Visit: Yes Status: Acute (2) Cocaine dependence, uncomplicated Current Visit: Yes Status: Acute (3) Phencyclidine dependence Current Visit: Yes Status: Acute (4) Nicotine dependence Current Visit: Yes Status: Acute Qualifiers: Nicotine product type: cigarettes Substance use status: in withdrawal Qualified Code(s): F17.213 - Nicotine dependence, cigarettes, with withdrawal - Initial Treatment Plan Initial Treatment Plan: Psychoeducation.Sleep hygiene.Detoxifoication.AA meetings,groups and recreational therapy.Observation.
[2018-05-23] MEDS: ATORVASTATIN CA 40 MG TABLET (FP) PO SCH (22:29)
[2018-05-23] MEDS: THIAMINE HCL 100 MG TABLET (FP) PO SCH (22:29)
[2018-05-23] MEDS: CLOTRIMAZOLE 1% CREAM 15 GM TUBE TP SCH (22:29)
[2018-05-23] MEDS: MELATONIN 5 MG TABLETS PO PRN (22:30)
[2018-05-24] MEDS ORDERED: INSULIN (NOVOLOG) ASPART 100 UNITS/ML 10ML VIAL ONE (04:34)
[2018-05-24] MEDS: chlordiazePOXIDE HCL 25 MG CAPSULE PO SCH ×3 (04:37→18:36)
[2018-05-24] MEDS: INSULIN (NOVOLOG) ASPART 100 UNITS/ML 10ML VIAL SQ SCH ×6 (06:00→16:58)
[2018-05-24] MEDS: INSULIN (LEVEMIR) 100 UNITS/ML UNITS SQ SCH ×2 (09:30→22:18)
[2018-05-24] MEDS: PRENATAL VITAMINS W/ FOLIC ACID TABLET (FP) PO SCH (10:11)
[2018-05-24] MEDS: CLOTRIMAZOLE 1% CREAM 15 GM TUBE TP SCH ×2 (10:11→22:18)
[2018-05-24] MEDS: ASPIRIN 81 MG CHEWABLE TABLETS PO SCH (10:11)
[2018-05-24] MEDS: NIFEdipine E.R 60 MG TABLET (UD) PO SCH (10:11)
[2018-05-24] MEDS: FLUOCINONIDE 0.05% CREAM (15 GM TUBE) TP SCH ×2 (10:11→22:18)
[2018-05-24] MEDS: GABAPENTIN 400 MG CAPSULE (FP) PO SCH ×2 (10:11→22:18)
[2018-05-24] MEDS: CALCIUM 500MG/VIT-D 200 UNITS COMBO TABLET (FP) PO SCH ×2 (10:12→22:18)
[2018-05-24] MEDS: NICOTINE 21 MG/24 HOURS TOPICAL PATCH TD SCH (10:12)
[2018-05-24] MEDS: NICOTINE POLACRILEX 2 MG GUM BC PRN (10:14)
--- NOTE | 2018-05-24 10:26 | PN ---
S CIWA - CIWA Score Nausea/Vomitin-No Nausea/No Vomiting Muscle Tremors: 1-None Visible, but [place] Anxiety: 2 Agitation: 2 Paroxysmal Sweats: No Perspiration Orientation: 0-Oriented Tacttile Disturbances: 3-Moderate Itch/Numb/Burn Auditory Disturbances: 0-None Visual Disturbances: 0-None Headache: 0-None Present CIWA-Ar Total Score: 8 BHS Progress Note (SOAP) Subjective: PATIENT C/O ANXIETY, DIFFICULTY TO SIT STILL, AND ITCHING/BURNING TO FEET. Objective: 05/24/18 10:25 Vital Signs Temperature 97.6 F 05/24/18 10:04 Pulse Rate 84 05/24/18 10:04 Respiratory Rate 20 05/24/18 10:04 Blood Pressure 109/72 05/24/18 10:04 O2 Sat by Pulse Oximetry (%) Laboratory Tests 05/22/18 05/22/18 05/22/18 15:32 18:16 21:13 WBC RBC Hgb Hct MCV MCH MCHC RDW Plt Count MPV Sodium Potassium Chloride Carbon Dioxide Anion Gap BUN Creatinine Creat Clearance w eGFR POC Glucometer 458 346 153 Random Glucose Calcium Total Bilirubin AST ALT Alkaline Phosphatase Total Protein Albumin RPR Titer 05/23/18 05/23/18 05/23/18 05:12 06:00 06:00 WBC 8.7 RBC 5.08 Hgb 16.4 Hct 47.8 MCV 94.1 MCH 32.2 MCHC 34.2 RDW 13.1 Plt Count 265 MPV 9.6 Sodium 135 L Potassium 4.2 Chloride 101 Carbon Dioxide 27 Anion Gap 7 L BUN 13 Creatinine 1.5 H Creat Clearance w eGFR 48.77 POC Glucometer 306 Random Glucose 471 H* Calcium 9.3 Total Bilirubin 0.8 AST 19 ALT 25 Alkaline Phosphatase 80 Total Protein 7.3 Albumin 3.6 RPR Titer 05/23/18 05/23/18 05/23/18 06:00 11:16 16:15 WBC RBC Hgb Hct MCV MCH MCHC RDW Plt Count MPV Sodium Potassium Chloride Carbon Dioxide Anion Gap BUN Creatinine Creat Clearance w eGFR POC Glucometer 231 65 Random Glucose Calcium Total Bilirubin AST ALT Alkaline Phosphatase Total Protein Albumin RPR Titer Nonreactive 05/23/18 05/24/18 20:59 04:25 WBC RBC Hgb Hct MCV MCH MCHC RDW Plt Count MPV Sodium Potassium Chloride Carbon Dioxide Anion Gap BUN Creatinine Creat Clearance w eGFR POC Glucometer 244 323 Random Glucose Calcium Total Bilirubin AST ALT Alkaline Phosphatase Total Protein Albumin RPR Titer SKIN WARM AND DRY ALERT AND ORIENTED X 3 CAR SIS2 RESP CTA BL EXT FULL ROM, +DRY, CRACKED SKIN IN BETWEEN TOES Assessment: 05/24/18 10:26 WITHDRAWAL SYNDROME ATHLETES FOOT Plan: CONTINUE DETOX ENCOURAGE ORAL FLUIDS TINACTIN TO FEET CONTINUE TO MONITOR CLINICALLY
[2018-05-24] MEDS: IBUPROFEN 400 MG TABLET (FP) PO PRN (18:52)
[2018-05-24] MEDS: ATORVASTATIN CA 40 MG TABLET (FP) PO SCH (22:17)
[2018-05-24] MEDS: THIAMINE HCL 100 MG TABLET (FP) PO SCH (22:17)
[2018-05-24] MEDS: chlordiazePOXIDE 5 MG CAPSULE PO SCH (22:17)
[2018-05-24] MEDS: MELATONIN 5 MG TABLETS PO PRN (22:18)
[2018-05-25] MEDS ORDERED: INSULIN (NOVOLOG) ASPART 100 UNITS/ML 10ML VIAL ONE (05:02)
[2018-05-25] MEDS: chlordiazePOXIDE 5 MG CAPSULE PO SCH ×3 (05:41→17:51)
[2018-05-25] MEDS: INSULIN (NOVOLOG) ASPART 100 UNITS/ML 10ML VIAL SQ SCH ×3 (06:12→17:07)
[2018-05-25] MEDS: INSULIN (LEVEMIR) 100 UNITS/ML UNITS SQ SCH ×2 (09:19→21:55)
[2018-05-25 10:22] LABS: URINE APPEARANCE CLEAR; URINE BILIRUBIN NEGATIVE (<2.0 mg/dL); URINE COLOR STRAW; URINE GLUCOSE (UA) 3+ (NEGATIVE); URINE KETONE NEGATIVE (NEGATIVE); URINE LEUK ESTERASE NEGATIVE (NEGATIVE); URINE NITRITE NEGATIVE (NEGATIVE); URINE PROTEIN NEGATIVE (NEGATIVE); URINE UROBILINOGEN NEGATIVE mg/dL (0.2-1.0)
[2018-05-25] MEDS: FLUOCINONIDE 0.05% CREAM (15 GM TUBE) TP SCH ×2 (10:31→21:58)
[2018-05-25] MEDS: GABAPENTIN 400 MG CAPSULE (FP) PO SCH ×2 (10:32→21:58)
[2018-05-25] MEDS: ASPIRIN 81 MG CHEWABLE TABLETS PO SCH (10:32)
[2018-05-25] MEDS: NIFEdipine E.R 60 MG TABLET (UD) PO SCH (10:32)
[2018-05-25] MEDS: CLOTRIMAZOLE 1% CREAM 15 GM TUBE TP SCH ×2 (10:32→21:58)
[2018-05-25] MEDS: PRENATAL VITAMINS W/ FOLIC ACID TABLET (FP) PO SCH (10:32)
[2018-05-25] MEDS: NICOTINE 21 MG/24 HOURS TOPICAL PATCH TD SCH (10:34)
[2018-05-25] MEDS: CALCIUM 500MG/VIT-D 200 UNITS COMBO TABLET (FP) PO SCH ×2 (10:34→21:59)
[2018-05-25] MEDS: NICOTINE POLACRILEX 2 MG GUM BC PRN ×2 (10:36→14:31)
--- NOTE | 2018-05-25 11:57 | PN ---
[facility] Progress Note Note: PATIENT TOLERATING DETOX WELL. STATES " I FEEL BETTER". Vital Signs Temperature 96.9 F L 05/25/18 10:10 Pulse Rate 106 H 05/25/18 10:10 Respiratory Rate 18 05/25/18 10:10 Blood Pressure 122/70 05/25/18 10:10 O2 Sat by Pulse Oximetry (%) Laboratory Tests 05/22/18 05/22/18 05/22/18 15:32 18:16 21:13 WBC RBC Hgb Hct MCV MCH MCHC RDW Plt Count MPV Sodium Potassium Chloride Carbon Dioxide Anion Gap BUN Creatinine Creat Clearance w eGFR POC Glucometer 458 346 153 Random Glucose Calcium Total Bilirubin AST ALT Alkaline Phosphatase Total Protein Albumin Urine Color Urine Appearance Urine pH Ur Specific [place] Urine Protein Urine Glucose (UA) Urine Ketones Urine Blood Urine Nitrite Urine Bilirubin Urine Urobilinogen Ur Leukocyte Esterase RPR Titer 05/23/18 05/23/18 05/23/18 05:12 06:00 06:00 WBC 8.7 RBC 5.08 Hgb 16.4 Hct 47.8 MCV 94.1 MCH 32.2 MCHC 34.2 RDW 13.1 Plt Count 265 MPV 9.6 Sodium 135 L Potassium 4.2 Chloride 101 Carbon Dioxide 27 Anion Gap 7 L BUN 13 Creatinine 1.5 H Creat Clearance w eGFR 48.77 POC Glucometer 306 Random Glucose 471 H* Calcium 9.3 Total Bilirubin 0.8 AST 19 ALT 25 Alkaline Phosphatase 80 Total Protein 7.3 Albumin 3.6 Urine Color Urine Appearance Urine pH Ur Specific [place] Urine Protein Urine Glucose (UA) Urine Ketones Urine Blood Urine Nitrite Urine Bilirubin Urine Urobilinogen Ur Leukocyte Esterase RPR Titer 05/23/18 05/23/18 05/23/18 06:00 11:16 16:15 WBC RBC Hgb Hct MCV MCH MCHC RDW Plt Count MPV Sodium Potassium Chloride Carbon Dioxide Anion Gap BUN Creatinine Creat Clearance w eGFR POC Glucometer 231 65 Random Glucose Calcium Total Bilirubin AST ALT Alkaline Phosphatase Total Protein Albumin Urine Color Urine Appearance Urine pH Ur Specific [place] Urine Protein Urine Glucose (UA) Urine Ketones Urine Blood Urine Nitrite Urine Bilirubin Urine Urobilinogen Ur Leukocyte Esterase RPR Titer Nonreactive 05/23/18 05/24/18 05/24/18 20:59 04:25 11:56 WBC RBC Hgb Hct MCV MCH MCHC RDW Plt Count MPV Sodium Potassium Chloride Carbon Dioxide Anion Gap BUN Creatinine Creat Clearance w eGFR POC Glucometer 244 323 192 Random Glucose Calcium Total Bilirubin AST ALT Alkaline Phosphatase Total Protein Albumin Urine Color Urine Appearance Urine pH Ur Specific [place] Urine Protein Urine Glucose (UA) Urine Ketones Urine Blood Urine Nitrite Urine Bilirubin Urine Urobilinogen Ur Leukocyte Esterase RPR Titer 05/24/18 05/24/18 05/25/18 16:21 21:26 03:57 WBC RBC Hgb Hct MCV MCH MCHC RDW Plt Count MPV Sodium Potassium Chloride Carbon Dioxide Anion Gap BUN Creatinine Creat Clearance w eGFR POC Glucometer 83 302 378 Random Glucose Calcium Total Bilirubin AST ALT Alkaline Phosphatase Total Protein Albumin Urine Color Urine Appearance Urine pH Ur Specific [place] Urine Protein Urine Glucose (UA) Urine Ketones Urine Blood Urine Nitrite Urine Bilirubin Urine Urobilinogen Ur Leukocyte Esterase RPR Titer 05/25/18 05/25/18 08:00 11:20 WBC RBC Hgb Hct MCV MCH MCHC RDW Plt Count MPV Sodium Potassium Chloride Carbon Dioxide Anion Gap BUN Creatinine Creat Clearance w eGFR POC Glucometer 231 Random Glucose Calcium Total Bilirubin AST ALT Alkaline Phosphatase Total Protein Albumin Urine Color Straw Urine Appearance Clear Urine pH 5.0 Ur Specific [place] 1.016 Urine Protein Negative Urine Glucose (UA) 3+ H Urine Ketones Negative Urine Blood Negative Urine Nitrite Negative Urine Bilirubin Negative Urine Urobilinogen Negative Ur Leukocyte Esterase Negative RPR Titer SKIN WARM AND DRY ALERT AND ORIENTED X 3 AMB AD GARY EXT FULL ROM, NO EDEMA A/P: WITHDRAWAL SYNDROME CONTINUE DETOX ENCOURAGE ORAL FLUIDS CONTINUE TO MONITOR CLINICALLY
[2018-05-25] MEDS: THIAMINE HCL 100 MG TABLET (FP) PO SCH (21:58)
[2018-05-25] MEDS: ATORVASTATIN CA 40 MG TABLET (FP) PO SCH (21:59)
[2018-05-25] MEDS: IBUPROFEN 400 MG TABLET (FP) PO PRN (21:59)
[2018-05-25] MEDS: chlordiazePOXIDE HCL 10 MG CAPSULE PO SCH (22:02)
[2018-05-26] MEDS: chlordiazePOXIDE HCL 10 MG CAPSULE PO SCH ×2 (05:43→10:08)
[2018-05-26] MEDS: INSULIN (NOVOLOG) ASPART 100 UNITS/ML 10ML VIAL SQ SCH ×2 (07:23→11:35)
[2018-05-26] MEDS: IBUPROFEN 400 MG TABLET (FP) PO PRN (07:39)
[2018-05-26] MEDS: FLUOCINONIDE 0.05% CREAM (15 GM TUBE) TP SCH (09:54)
[2018-05-26] MEDS: GABAPENTIN 400 MG CAPSULE (FP) PO SCH (09:54)
[2018-05-26] MEDS: CLOTRIMAZOLE 1% CREAM 15 GM TUBE TP SCH (09:54)
[2018-05-26] MEDS: NIFEdipine E.R 60 MG TABLET (UD) PO SCH (09:54)
[2018-05-26] MEDS: ASPIRIN 81 MG CHEWABLE TABLETS PO SCH (09:54)
[2018-05-26] MEDS: CALCIUM 500MG/VIT-D 200 UNITS COMBO TABLET (FP) PO SCH (09:55)
[2018-05-26] MEDS: NICOTINE 21 MG/24 HOURS TOPICAL PATCH TD SCH (09:55)
[2018-05-26] MEDS: INSULIN (LEVEMIR) 100 UNITS/ML UNITS SQ SCH (09:56)
[2018-05-26 10:02] VITALS: BP 118/80; PULSE 83; TEMP 97.6
[2018-05-26] MEDS: PRENATAL VITAMINS W/ FOLIC ACID TABLET (FP) PO SCH (10:08)
--- NOTE | 2018-05-26 10:09 | PN ---
S Progress Note (SOAP) Subjective: alert,no complaint Objective: 05/26/18 10:08 Vital Signs Temperature 97.6 F 05/26/18 10:00 Pulse Rate 83 05/26/18 10:00 Respiratory Rate 20 05/26/18 10:00 Blood Pressure 118/80 05/26/18 10:00 O2 Sat by Pulse Oximetry (%) Assessment: 05/26/18 10:08 detox completed,no withdrawal symptom Plan: discharge today,follow up with after care program as arrangement rehab
[2018-05-26] MEDS: NICOTINE POLACRILEX 2 MG GUM BC PRN (10:19)
--- NOTE | 2018-05-26 10:40 | DS ---
[facility] Detox Discharge Summary Admission Date: 05/22/18 Discharge Date: 05/26/18 - History Present History: Alcohol Dependence, Cocaine Dependence Additional Comments: follow up with after care program [facility] as arrangement Pertinent Past History: essential hypertension nicotine dependence type 2 dm pcp abused hyperlipidemia peripheral neuropathy - Physical Exam Results Vital Signs: Vital Signs Temperature 97.6 F 05/26/18 10:00 Pulse Rate 83 05/26/18 10:00 Respiratory Rate 20 05/26/18 10:00 Blood Pressure 118/80 05/26/18 10:00 O2 Sat by Pulse Oximetry (%) Pertinent Admission Physical Exam Findings: withdrawal signs and symptom Laboratory Last Values WBC 8.7 K/mm3 (4.0-10.0) 05/23/18 06:00 RBC 5.08 M/mm3 (4.00-5.60) 05/23/18 06:00 Hgb 16.4 GM/dL (11.7-16.9) 05/23/18 06:00 Hct 47.8 % (35.4-49) 05/23/18 06:00 MCV 94.1 fl (80-96) 05/23/18 06:00 MCH 32.2 pg (25.7-33.7) 05/23/18 06:00 MCHC 34.2 g/dl (32.0-35.9) 05/23/18 06:00 RDW 13.1 % (11.9-15.9) 05/23/18 06:00 Plt Count 265 K/MM3 (134-434) 05/23/18 06:00 MPV 9.6 fl (7.5-11.1) 05/23/18 06:00 Sodium 135 mmol/L (136-145) L 05/23/18 06:00 Potassium 4.2 mmol/L (3.5-5.1) 05/23/18 06:00 Chloride 101 mmol/L (98-107) 05/23/18 06:00 Carbon Dioxide 27 mmol/L (21-32) 05/23/18 06:00 Anion Gap 7 MMOL/L (8-16) L 05/23/18 06:00 BUN 13 mg/dL (7-18) 05/23/18 06:00 Creatinine 1.5 mg/dL (0.55-1.3) H 05/23/18 06:00 Creat Clearance w eGFR 48.77 (>60) 05/23/18 06:00 POC Glucometer 372 UNITS (80-120) 05/26/18 05:45 Random Glucose 471 mg/dL (74-106) H* 05/23/18 06:00 Calcium 9.3 mg/dL (8.5-10.1) 05/23/18 06:00 Total Bilirubin 0.8 mg/dL (0.2-1) 05/23/18 06:00 AST 19 U/L (15-37) 05/23/18 06:00 ALT 25 U/L (13-61) 05/23/18 06:00 Alkaline Phosphatase 80 U/L (45-117) 05/23/18 06:00 Total Protein 7.3 g/dl (6.4-8.2) 05/23/18 06:00 Albumin 3.6 g/dl (3.4-5.0) 05/23/18 06:00 Urine Color Straw 05/25/18 08:00 Urine Appearance Clear 05/25/18 08:00 Urine pH 5.0 (5.0-8.0) 05/25/18 08:00 Ur Specific [place] 1.016 (1.010-1.035) 05/25/18 08:00 Urine Protein Negative (NEGATIVE) 05/25/18 08:00 Urine Glucose (UA) 3+ (NEGATIVE) H 05/25/18 08:00 Urine Ketones Negative (NEGATIVE) 05/25/18 08:00 Urine Blood Negative (NEGATIVE) 05/25/18 08:00 Urine Nitrite Negative (NEGATIVE) 05/25/18 08:00 Urine Bilirubin Negative (<2.0 mg/dL) 05/25/18 08:00 Urine Urobilinogen Negative mg/dL (0.2-1.0) 05/25/18 08:00 Ur Leukocyte Esterase Negative (NEGATIVE) 05/25/18 08:00 RPR Titer Nonreactive (NONREACTIVE) 05/23/18 06:00 - Treatment Hospital Course: Detox Protocol Followed, Detoxed Safely, Responded well, Discharged Condition Good, Rehab Referral Accepted Patient has Accepted a Rehab Referral to: [facility] - Medication Discharge Medications: Ambulatory Orders Gabapentin 800 mg PO BID 12/11/17 Insulin (Novolog) [Novolog Flexpen] 20 units SQ TID 12/11/17 Calcium Carbonate/Vitamin D3 [Calcium 500 + Vit D 200 Caplet] 1 each PO BID 05/01 Clotrimazole [Jock Itch Relief] 15 gm TP BID 05/22/18 Ergocalciferol [Vitamin D2] 50,000 unit PO WEEKLY 05/22/18 Aspirin [ASA -] 81 mg PO DAILY #30 tab.chew 05/25/18 Atorvastatin Ca [Lipitor] 40 mg PO HS #30 tablet 05/25/18 Fluocinonide 0.05% Cream [Lidex 0.05% Cream -] 1 applic TP BID #1 tube 05/25/18 Insulin Glargine,Hum.rec.anlog [Lantus Solostar PEN -] 40 units SQ BID #1 ins Nifedipine [Procardia Xl] 60 mg PO DAILY #30 tab.er.24 05/25/18 - Diagnosis (1) Alcohol dependence with uncomplicated withdrawal Current Visit: Yes Status: Acute (2) Cocaine dependence Current Visit: No Status: Acute (3) Essential hypertension Current Visit: No Status: Acute (4) History of appendectomy Current Visit: No Status: Acute (5) Nicotine dependence Current Visit: Yes Status: Acute Qualifiers: Nicotine product type: cigarettes Substance use status: in withdrawal Qualified Code(s): F17.213 - Nicotine dependence, cigarettes, with withdrawal (6) PCP dependence Current Visit: No Status: Acute (7) DIABETES TYPE 2 Current Visit: No Status: Chronic (8) Essential (primary) hypertension Current Visit: No Status: Chronic (9) HLD (hyperlipidemia) Current Visit: No Status: Chronic Qualifiers: Hyperlipidemia type: unspecified Qualified Code(s): E78.5 - Hyperlipidemia , unspecified (10) Peripheral neuropathy Current Visit: No Status: Chronic Qualifiers: Peripheral neuropathy type: polyneuropathy, unspecified Qualified Code(s): G62.9 - Polyneuropathy, unspecified (11) IDDM (insulin dependent diabetes mellitus) Current Visit: Yes Status: Acute (12) Prostatic cancer Current Visit: Yes Status: Acute - AMA Did Patient Leave Against Medical Advice: No
== END 2018-05-26 12:36 | disposition other institution (70) | DRG 774 ==
LOC: YASAS 11:58 → Y3N 15:47
PROC: HZ2ZZZZ Detoxification Services for Substance Abuse Treatment (ICD-10-PCS; principal; 2018-05-22)
DX: F10.230 Alcohol dependence with withdrawal, uncomplicated (principal); F14.20 Cocaine dependence, uncomplicated; F16.20 Hallucinogen dependence, uncomplicated; F41.8 Other specified anxiety disorders; F32.9 Major depressive disorder, single episode, unspecified; G47.00 Insomnia, unspecified; I10 Essential (primary) hypertension; E11.9 Type 2 diabetes mellitus without complications; Z79.4 Long term (current) use of insulin; E78.5 Hyperlipidemia, unspecified; G62.9 Polyneuropathy, unspecified; C61 Malignant neoplasm of prostate; Z88.0 Allergy status to penicillin
CPT/HCPCS: 36415; 80053; 81003; 82962; 85027; 86593; 93005; 93010

== ENCOUNTER 2018-05-26 12:55 | Inpatient (IN) | payer OTHER ==
[2018-05-26 15:17] VITALS: BMI 29.2
[2018-05-26] MEDS ORDERED: P-EPHED 60MG/TRIPROLIDI 2.5MG TABLET PO PRN (15:36)
[2018-05-26] MEDS ORDERED: guaiFENesin/D-METHORPHAN HB 10 ML UNIT-DOSE CUPS PO PRN (15:36)
[2018-05-26] MEDS ORDERED: ACETAMINOPHEN 325 MG TABLET (FP) PO PRN (15:36)
[2018-05-26] MEDS ORDERED: MAGNESIUM HYDROX 2400MG/30ML ORAL SUSPENSION 30 ML CUP PO PRN (15:36)
[2018-05-26] MEDS ORDERED: hydrOXYzine PAMOATE 50 MG CAPSULE (FP) PO PRN (15:36)
[2018-05-26] MEDS ORDERED: MAG HYDROX/AL HYDROX/SIMETH 30 ML UNIT-DOSE CUP PO PRN (15:36)
[2018-05-26] MEDS ORDERED: MENTHOL/PHENOL 1 EACH UD MM PRN (15:36)
[2018-05-26] MEDS ORDERED: MAGNESIUM CITRATE 300 ML BOTTLE PO PRN (15:36)
--- NOTE | 2018-05-26 15:36 | HP ---
[facility] Rehab Assess/Revision - Admission History Admitted to Rehab from: [facility] Date of Admission to Rehab: 05/26/18 - Vital signs Vital Signs: Vital Signs Period Temp Pulse Resp BP Sys/[place] Pulse Ox Last 24 Hr 97.9 F-97.9 F 107-107 18-18 128-128/74-74 - Findings Detox History & Physical reviewed: Yes Concur with findings: Yes Comments/Additional Findings: for rehab as protocol Inpatient Rehab Admission - Initial Determination Are CD services needed?: Yes Free of communicable disease: Yes Not in need of hospitalization: Yes - Rehab Admission Criteria Previous failed treatment: Yes Poor recovery environment: Yes Comorbidities: Yes Lacks judgement: No Patient is meeting Inpatient Rehab admission criteria:: Yes
[2018-05-26] MEDS: INSULIN (NOVOLOG) ASPART 100 UNITS/ML 10ML VIAL SQ SCH (17:04)
[2018-05-26] MEDS: CLOTRIMAZOLE 1% CREAM 15 GM TUBE TP SCH (21:14)
[2018-05-26] MEDS: FLUOCINONIDE 0.05% CREAM (15 GM TUBE) TP SCH (21:15)
[2018-05-26] MEDS: ATORVASTATIN CA 40 MG TABLET (FP) PO SCH (21:16)
[2018-05-26] MEDS: THIAMINE HCL 100 MG TABLET (FP) PO SCH (21:16)
[2018-05-26] MEDS: CALCIUM 500MG/VIT-D 200 UNITS COMBO TABLET (FP) PO SCH (21:16)
[2018-05-26] MEDS: GABAPENTIN 400 MG CAPSULE (FP) PO SCH (21:16)
[2018-05-26] MEDS ORDERED: MELATONIN 5 MG TABLETS PO PRN (22:00)
[2018-05-26] MEDS ORDERED: THIAMINE HCL 100 MG TABLET (FP) PO SCH (22:00)
[2018-05-26] MEDS ORDERED: PATIENT'S OWN MEDICATION (NON-FORMULARY) (Gabapentin [Gabapentin] 800 MG) PO SCH (22:00)
[2018-05-26] MEDS: INSULIN (LEVEMIR) 100 UNITS/ML UNITS SQ SCH (22:14)
[2018-05-27] MEDS ORDERED: INSULIN (NOVOLOG) ASPART 100 UNITS/ML 10ML VIAL ONE ×2 (05:13→12:16)
[2018-05-27] MEDS: INSULIN (LEVEMIR) 100 UNITS/ML UNITS SQ SCH ×2 (07:11→21:11)
[2018-05-27] MEDS: INSULIN (NOVOLOG) ASPART 100 UNITS/ML 10ML VIAL SQ SCH ×3 (07:13→17:32)
[2018-05-27] MEDS: LOPERAMIDE HCL 2 MG CAPSULE PO PRN ×3 (07:21→23:01)
[2018-05-27] MEDS ORDERED: PT OWN MED DRAWER 7, Y5N ONE (09:02)
[2018-05-27] MEDS: GABAPENTIN 400 MG CAPSULE (FP) PO SCH ×2 (09:57→21:09)
[2018-05-27] MEDS: PRENATAL VITAMINS W/ FOLIC ACID TABLET (FP) PO SCH (09:57)
[2018-05-27] MEDS: CALCIUM 500MG/VIT-D 200 UNITS COMBO TABLET (FP) PO SCH ×2 (09:57→21:08)
[2018-05-27] MEDS: NIFEdipine E.R 60 MG TABLET (UD) PO SCH (09:57)
[2018-05-27] MEDS: ASPIRIN 81 MG CHEWABLE TABLETS PO SCH (09:57)
[2018-05-27] MEDS: FLUOCINONIDE 0.05% CREAM (15 GM TUBE) TP SCH ×2 (09:59→21:09)
[2018-05-27] MEDS: CLOTRIMAZOLE 1% CREAM 15 GM TUBE TP SCH ×2 (09:59→21:11)
[2018-05-27] MEDS ORDERED: PATIENT'S OWN MEDICATION (NON-FORMULARY) (Nifedipine [Procardia Xl] 60 MG) PO SCH (10:00)
[2018-05-27] MEDS: THIAMINE HCL 100 MG TABLET (FP) PO SCH (21:09)
[2018-05-27] MEDS: ATORVASTATIN CA 40 MG TABLET (FP) PO SCH (21:09)
[2018-05-27] MEDS: IBUPROFEN 400 MG TABLET (FP) PO PRN (21:13)
[2018-05-28] MEDS: INSULIN (LEVEMIR) 100 UNITS/ML UNITS SQ SCH ×2 (06:50→21:04)
[2018-05-28] MEDS: INSULIN (NOVOLOG) ASPART 100 UNITS/ML 10ML VIAL SQ SCH ×3 (06:50→16:46)
[2018-05-28] MEDS: LOPERAMIDE HCL 2 MG CAPSULE PO PRN (07:48)
[2018-05-28] MEDS ORDERED: PT OWN MED DRAWER 7, Y5N ONE (08:21)
[2018-05-28] MEDS: PRENATAL VITAMINS W/ FOLIC ACID TABLET (FP) PO SCH (09:35)
[2018-05-28] MEDS: NIFEdipine E.R 60 MG TABLET (UD) PO SCH (09:35)
[2018-05-28] MEDS: CALCIUM 500MG/VIT-D 200 UNITS COMBO TABLET (FP) PO SCH ×2 (09:35→21:08)
[2018-05-28] MEDS: ASPIRIN 81 MG CHEWABLE TABLETS PO SCH (09:36)
[2018-05-28] MEDS: FLUOCINONIDE 0.05% CREAM (15 GM TUBE) TP SCH ×2 (09:36→21:09)
[2018-05-28] MEDS: CLOTRIMAZOLE 1% CREAM 15 GM TUBE TP SCH ×2 (09:36→21:09)
[2018-05-28] MEDS: GABAPENTIN 400 MG CAPSULE (FP) PO SCH ×2 (09:36→21:08)
--- NOTE | 2018-05-28 10:30 | HP ---
Psychiatrist Admission - Data Date of interview: 05/28/18 Admission source: /[facility] Identifying data: This is the third [facility] admission for this 53 years old Black male, father of 5 children, unemployed on public assistance, domiciled Medical History: Significant for cancer of prostate diagnosed in 2015, insulin dependent diabetes mellitus, dyslipidemia, hypertension, peripheral neuropathy and a history of appendectomy. Smokes 10 cigarettes daily Psychiatric History: Denies initially history of previous psychiatric treatment. However he told Dr Encinas whom he saw on 05/23/18 while in detox that he sees a therapist at [facility]. Told sheet writer that he sees a psychiatrist there and he is prescribed Klonopin. No Rx for Klonopin is evident on his external medication history. Physical/Sexual Abuse/Trauma History: Denies history of verbal, physical or sexual abuse as well as DV relationship. No service Additional Comment: Reports history of 5 previous arrests including 2 felony convictions. Denies being on parole/probation Vital Signs: Vital Signs - 24 hr 05/28/18 05/28/18 05/28/18 00:30 03:30 06:53 Temperature 97.4 F L Pulse Rate 87 Respiratory 16 16 18 Rate Blood Pressure 96/65 05/28/18 09:30 Temperature Pulse Rate 110 H Respiratory 18 Rate Blood Pressure 101/53 L Allergies/Adverse Reactions: Allergies Allergy/AdvReac Type Severity Reaction Status Date / Time Penicillins Allergy Severe Rash Verified 05/22/18 15:02 pork derived (porcine) Allergy Severe Hives Verified 05/22/18 15:02 Date of last physical exam: 05/22/18 Concur with the findings of this exam: Yes - Substance Abuse/Tx History Hx Alcohol Use: Yes Hx Substance Use: Yes (Began pcp at 24, consumes $10(2 bags) daily. Last smoked on 05/21/18) Substance Use Type: Alcohol (Started drinking alcohol at age 8, consumes half a pint of vodka & a 6pk of beer daily. Last Drank on 31/03/18), Cocaine (Started using cocaine at age 16, consumes $20 worth on weekend. Last used on 05/21/18) Hx Substance Use Treatment: Yes (4 pevious inpt detox & 2 inpt rehab admissions @ [facility]) Mental Status Exam - Mental Status Exam Alert and Oriented to: Time, Place, Person Cognitive Function: Fair Patient Appearance: Well Groomed Mood: Happy Affect: Appropriate Patient Behavior: Cooperative Speech Pattern: Clear Voice Loudness: Normal Thought Process: Intact, Goal Oriented Thought Disorder: Not Present Hallucinations: Denies Suicidal Ideation: Denies Homicidal Ideation: Denies Insight/Judgement: Fair Sleep: Poorly Appetite: Good Muscle strength/Tone: Normal Gait/Station: Normal Psychiatric Findings - Problem List ([place] 1, 2,3) (1) Alcohol dependence Current Visit: No Status: Active (2) Cocaine dependence Current Visit: No Status: Acute (3) Phencyclidine dependence Current Visit: No Status: Acute (4) Nicotine dependence Current Visit: No Status: Chronic (5) Substance-induced sleep disorder Current Visit: No Status: Acute (6) Essential hypertension Current Visit: No Status: Chronic (7) IDDM (insulin dependent diabetes mellitus) Current Visit: No Status: Chronic (8) History of appendectomy Current Visit: No Status: Suspected (9) Prostatic cancer Current Visit: No Status: Acute (10) HLD (hyperlipidemia) Current Visit: No Status: Chronic Qualifiers: Hyperlipidemia type: unspecified Qualified Code(s): E78.5 - Hyperlipidemia , unspecified - Initial Treatment Plan Initial Treatment Plan: 1) Start Benadryl 50 mg po HS prn for insomnia. 2) Monitor progress
[2018-05-28] MEDS: IBUPROFEN 400 MG TABLET (FP) PO PRN ×2 (10:51→21:08)
[2018-05-28] MEDS ORDERED: diphenhydrAMINE HCL 50 MG CAPSULE PO PRN (13:11)
[2018-05-28] MEDS ORDERED: NICOTINE POLACRILEX 4 MG GUM BUC PRN (16:09)
--- NOTE | 2018-05-28 16:16 | PN ---
[facility] Progress Note Note: C/O RIGHT EAR ACHE ESPECIALLY AT NIGHT. TOOT MOTRIN LAST NIGHT WITH SOME RELIEF. DENIES RUNNY NOSE, COUGH OR CONGESTION. Vital Signs 05/28/18 09:30 Pulse Rate 110 H Respiratory 18 Rate Blood Pressure 101/53 L Laboratory Tests 05/26/18 05/26/18 05/27/18 17:03 21:12 07:09 POC Glucometer 164 187 272 05/27/18 05/27/18 05/27/18 12:13 17:28 21:08 POC Glucometer 259 218 224 05/28/18 05/28/18 06:48 11:37 POC Glucometer 290 192 EAR EXAM: NO REDNESS OR SWELLING. TM WNL, BL. PLAN:MOTRIN DIRECTED. MONITOR SYMPTOMS TREAT IF NEEDED.
[2018-05-28] MEDS ORDERED: NICOTINE 21 MG/24 HOURS TOPICAL PATCH TD SCH (16:45)
[2018-05-28] MEDS: ATORVASTATIN CA 40 MG TABLET (FP) PO SCH (21:08)
[2018-05-28] MEDS: THIAMINE HCL 100 MG TABLET (FP) PO SCH (21:09)
[2018-05-29 06:49] VITALS: BP 114/71; PULSE 90; TEMP 97.7
[2018-05-29] MEDS: INSULIN (NOVOLOG) ASPART 100 UNITS/ML 10ML VIAL SQ SCH (07:56)
[2018-05-29] MEDS: INSULIN (LEVEMIR) 100 UNITS/ML UNITS SQ SCH (07:56)
== END 2018-05-29 08:54 | disposition left against medical advice (07) | DRG 770 ==
LOC: YASAS 12:55 → Y3W 12:58 → Y3E 22:57 → Y3W 23:00
PROVIDERS: ADMIT Psychiatry & Neurology Psychiatry; ATTEND Psychiatry & Neurology Psychiatry
PROC: HZ42ZZZ Group Counseling for Substance Abuse Treatment, Cognitive-Behavioral (ICD-10-PCS; principal; 2018-05-26)
DX: F10.20 Alcohol dependence, uncomplicated (principal); F16.20 Hallucinogen dependence, uncomplicated; F14.20 Cocaine dependence, uncomplicated; F17.210 Nicotine dependence, cigarettes, uncomplicated; F19.282 Other psychoactive substance dependence with psychoactive substance-induced sleep disorder; I10 Essential (primary) hypertension; E11.9 Type 2 diabetes mellitus without complications; H92.01 Otalgia, right ear; E78.5 Hyperlipidemia, unspecified; Z85.46 Personal history of malignant neoplasm of prostate; G62.9 Polyneuropathy, unspecified; Z79.4 Long term (current) use of insulin
CPT/HCPCS: 82962

== ENCOUNTER 2018-10-04 08:43 | Inpatient (IN) | payer OTHER ==
[2018-10-04 09:23] VITALS: BMI 28.6
--- NOTE | 2018-10-04 09:56 | HP ---
CIWA Score Nausea/Vomitin Muscle Tremors: 2 Anxiety: 2 Agitation: 2 Paroxysmal Sweats: 1-Minimal Palms Moist Orientation: 0-Oriented Tacttile Disturbances: 1-Very Mild Itch/Numbness Auditory Disturbances: 1-Very Mild Visual Disturbances: 0-None Headache: 2-Mild CIWA-Ar Total Score: 13 - Admission Criteria [facility]ASAS Guidelines: Admission for Medically Managed Detox: Requires at least one of the followin. CIWA greater than 12 2. Seizures within the past 24 hours 3. Delirium tremens within the past 24 hours 4. Hallucinations within the past 24 hours 5. Acute intervention needed for co occurring medical disorder 6. Acute intervention needed for co occurring psychiatric disorder 7. Severe withdrawal that cannot be handled at a lower level of care (continued vomiting, continued diarrhea, abnormal vital signs) requiring intravenous medication and/or fluids 8. Patient presents the following: CIWA greater than 12 Admission Criteria Met: Admission criteria met Admission ROS [facility] - HPI Chief Complaint: i need help to stop drinking alcohol,cocaine Allergies/Adverse Reactions: Allergies Allergy/AdvReac Type Severity Reaction Status Date / Time Penicillins Allergy Severe Rash Verified 10/04/18 10:22 pork derived (porcine) Allergy Severe Hives Verified 10/04/18 10:22 History of Present Illness: this 53 years old male with alcohol and cocaine dependence seeking detox, withdrawal symptom,multiple admissions in detox, last detox [facility] 05/22/18 to 05/26/18,rehab 05/26/18 to 05/29/18 weight loss eczema neuropathy iddm nicotine dependence 1 pack/day longest period of sobriety 6 months plan for rehab after detox Exam Limitations: No Limitations - Ebola screening Have you traveled outside of the country in the last 21 days: No Have you had contact with anyone from an Ebola affected area: No Have you been sick,other than usual withdrawal symptoms: No Do you have a fever: No - Review of Systems Constitutional: Loss of Appetite, Malaise, Night Sweats, Changes in sleep, Weakness, Unintentional Wgt. Loss EENT: reports: Nose Congestion Respiratory: reports: No Symptoms reported Cardiac: reports: No Symptoms Reported GI: reports: Nausea, Abdominal cramping : reports: No Symptoms Reported Musculoskeletal: reports: Back Pain, Muscle Pain Integumentary: reports: Dryness Neuro: reports: Headache, Tremors Endocrine: reports: No Symptoms Reported, Other (iddm) Hematology: reports: No Symptoms Reported Psychiatric: reports: No Sypmtoms Reported, Judgement Intact, Mood/Affect Appropiate, Orientated x3, other Other Systems: Reviewed and Negative Patient History - Patient Medical History Hx Anemia: No Hx Asthma: No Hx Chronic Obstructive Pulmonary Disease (COPD): No Hx Cancer: No Hx Cardiac Disorders: No Hx Congestive Heart Failure: No Hx Hypertension: Yes (no med) Hx Hypercholesterolemia: Yes (on med) Hx Pacemaker: No HX Cerebrovascular Accident: No Hx Seizures: No Hx Dementia: No Hx Diabetes: Yes (iddm) Hx Gastrointestinal Disorders: No Hx Liver Disease: No Hx Genitourinary Disorders: Yes (history of prostate cancer) Hx Sexually Transmitted Disorders: No Hx Renal Disease (ESRD): No Hx Thyroid Disease: No Hx Human Immunodeficiency Virus (HIV): No (last 05/31 negative) Hx Hepatitis C: No Hx Depression: Yes (no med) Hx Suicide Attempt: No Hx Bipolar Disorder: No Hx Schizophrenia: No Other Medical History: no suicidal,no homicidal,neuropathy - Patient Surgical History Past Surgical History: Yes Hx Neurologic Surgery: No Hx Cataract Extraction: No Hx Cardiac Surgery: No Hx Lung Surgery: No Hx Breast Surgery: No Hx Breast Biopsy: No Hx Abdominal Surgery: No Hx Appendectomy: Yes (1985) Hx Cholecystectomy: No Hx Genitourinary Surgery: No Hx Section: No Hx Orthopedic Surgery: No Anesthesia Reaction: No - PPD History Previous Implant?: Yes Documented Results: Negative w/proof Date: 05/24/18 Results: 0 MM PPD to be Administered?: No - Smoking Cessation Smoking history: Current every day smoker Have you smoked in the past 12 months: Yes Aproximately how many cigarettes per day: 20 Hx Chewing Tobacco Use: No Initiated information on smoking cessation: Yes 'Breaking Loose' booklet given: 10/04/18 - Substance & Tx. History Hx Alcohol Use: Yes Hx Substance Use: Yes Substance Use Type: Alcohol, Cocaine Hx Substance Use Treatment: Yes ([facility] 05/22/18 to 05/26/18,rehab 05/26/18 to ) - Substances Abused Alcohol Route: Oral Frequency: Daily Amount used: 1pint of vodka/4 of 22 ozs of beer Age of first use: 8 Date of Last Use: 10/04/18 Cocaine Route: Inhalation Frequency: 3-6 times per week Amount used: 20$ Age of first use: 16 Date of Last Use: 10/02/18 PCP Route: Smoking Frequency: 3-6 times per week Amount used: 20$ Age of first use: 21 Date of Last Use: 10/02/18 Family Disease History - Family Disease History Family Disease History: Diabetes: Mother, Other: Father (alcohol,) Admission Physical Exam [facility] - Vital Signs Vital Signs: Vital Signs - 24 hr 10/04/18 09:21 Temperature 97.5 F L Pulse Rate 96 H Respiratory 18 Rate Blood Pressure 131/80 - Physical General Appearance: Yes: Moderate Distress, Tremorous, Irritable, Sweating, Anxious HEENTM: Yes: Normal ENT Inspection, Normocephalic, AMY, Pharynx Normal Respiratory: Yes: Within Normal Limits, Lungs Clear, Normal Breath Sounds Neck: Yes: Within Normal Limits, Supple, Trachea in good position Breast: Yes: Within Normal Limits Cardiology: Yes: Regular Rhythm, Regular Rate, S1, S2 Abdominal: Yes: Within Normal Limits, Normal Bowel Sounds, Non Tender, Flat, Soft Genitourinary: Yes: Other (vcancer of prostate) Back: Yes: Muscle Spasm Musculoskeletal: Yes: Back pain, Muscle Pain Extremities: Yes: Within Normal Limits, Tremors Neurological: Yes: forest fire management officer II-XII NML intact, Fully Oriented, Alert, Motor Strength 5/5 Integumentary: Yes: Dry Lymphatic: Yes: Within Normal Limits - Diagnostic (1) Alcohol dependence with uncomplicated withdrawal Current Visit: No Status: Acute (2) Cocaine dependence Current Visit: No Status: Acute (3) History of appendectomy Current Visit: No Status: Acute (4) IDDM (insulin dependent diabetes mellitus) Current Visit: No Status: Acute (5) Phencyclidine dependence Current Visit: No Status: Acute (6) Prostatic cancer Current Visit: No Status: Acute (7) Nicotine dependence Current Visit: No Status: Chronic (8) Peripheral neuropathy Current Visit: No Status: Chronic Qualifiers: Peripheral neuropathy type: polyneuropathy, unspecified Qualified Code(s): G62.9 - Polyneuropathy, unspecified Cleared for Admission [facility] - Detox or Rehab [facility] Level of Care: Medically Managed Detox Regimen/Protocol: Librium S Breath Alcohol Content Breath Alcohol Content: 0.019 Urine Drug Screen - Results Drug Screen Negative: No Urine Drug Screen Results: NAHOMY-Cocaine Inpatient Rehab Admission - Rehab Decision to Admit Inpatient rehab admission?: No
[2018-10-04] MEDS ORDERED: MENTHOL/PHENOL 1 EACH UD MM PRN (10:17)
[2018-10-04] MEDS ORDERED: hydrOXYzine PAMOATE 50 MG CAPSULE (FP) PO PRN (10:17)
[2018-10-04] MEDS ORDERED: MAG HYDROX/AL HYDROX/SIMETH 30 ML UNIT-DOSE CUP PO PRN (10:17)
[2018-10-04] MEDS ORDERED: IBUPROFEN 400 MG TABLET (FP) PO PRN (10:17)
[2018-10-04] MEDS ORDERED: guaiFENesin/D-METHORPHAN HB 10 ML UNIT-DOSE CUPS PO PRN (10:17)
[2018-10-04] MEDS ORDERED: ACETAMINOPHEN 325 MG TABLET (FP) PO PRN (10:17)
[2018-10-04] MEDS ORDERED: chlordiazePOXIDE HCL 25 MG CAPSULE PO PRN (10:17)
[2018-10-04] MEDS ORDERED: P-EPHED 60MG/TRIPROLIDI 2.5MG TABLET PO PRN (10:17)
[2018-10-04] MEDS ORDERED: MAGNESIUM CITRATE 300 ML BOTTLE PO PRN (10:17)
[2018-10-04] MEDS ORDERED: MAGNESIUM HYDROX 2400MG/30ML ORAL SUSPENSION 30 ML CUP PO PRN (10:17)
[2018-10-04] MEDS ORDERED: COLLOIDAL OATMEAL 1 BAR EACH TP PRN (10:28)
[2018-10-04] MEDS ORDERED: LEUPROLIDE ACETATE 7.5 MG KIT IM ONE (12:00)
[2018-10-04] MEDS ORDERED: INSULIN SLIDING SCALE (NOVOLOG) 1 VIAL SQ ONE (12:45)
[2018-10-04] MEDS: INSULIN (NOVOLOG) ASPART 100 UNITS/ML 10ML VIAL SQ SCH ×2 (12:47→16:45)
[2018-10-04] MEDS: chlordiazePOXIDE HCL 25 MG CAPSULE PO SCH ×3 (12:48→22:58)
[2018-10-04] MEDS: NICOTINE 21 MG/24 HOURS TOPICAL PATCH TD SCH (12:48)
[2018-10-04] MEDS: NICOTINE POLACRILEX 2 MG GUM BC PRN (12:50)
[2018-10-04] MEDS: FLUOCINONIDE 0.05% CREAM (15 GM TUBE) TP SCH ×2 (13:36→22:55)
[2018-10-04] MEDS ORDERED: INSULIN (NOVOLOG MIX 70/30) 100 UNITS/ML MDV SQ ONE (17:37)
--- NOTE | 2018-10-04 17:53 | PN ---
[facility] Progress Note Note: BGM at 16:59: 250. Previous BGM's earlier on in days were 488 (X 2). Patient scheduled to receive Novolog, 20 Units SQ (Patient Reports that he normally takes 35 Units SQ TIDAC on Outpatient Basis; Admitting Medical Provider elected to order 20 Units TIDAC for time being and to monitor subsequent BGM's accordingly. Will give 20 Units Novolog at this time. Advised RN to Notify covering Medical Provider later in evening of result of HS BGM before giving 40 Units of Levimir that is scheduled for that time. Patient also reports that he was prescribed an antibiotic two days ago for an "Ear Infection" as diagnosed by outside Medical Provider. Patient Reports that he lost the antibiotic before admission to Detox. Patient reports that Medical Provider cleaned cerumen out of his ears, but that he is still experiencing discomfort in his Left Ear. As per Yeimy Ricks at Patient's Pharmacy ('[facility] [place], [place]), Patient was Prescribed a Z-Pack two days ago. Will Order Z-Pack for this admission. Patient advised to follow-up with [facility] ([place], [place]) after discharge from Detox Unit for General Medical Evaluation and for further evaluation of history of Type II DM and of Insulin Coverage that he is currently prescribed. Patient verbalized understanding of Recommendation. Jignesh Unger NP
[2018-10-04] MEDS ORDERED: AZITHROMYCIN 250 MG TABLET PO ONE (18:15)
[2018-10-04] MEDS ORDERED: MELATONIN 5 MG TABLETS PO PRN (22:00)
[2018-10-04] MEDS: INSULIN (LEVEMIR) 100 UNITS/ML UNITS SQ SCH (22:56)
[2018-10-04] MEDS: CLOTRIMAZOLE 1% CREAM 15 GM TUBE TP SCH (22:56)
[2018-10-04] MEDS: ATORVASTATIN CA 40 MG TABLET (FP) PO SCH (22:58)
[2018-10-04] MEDS: GABAPENTIN 400 MG CAPSULE (FP) PO SCH (22:58)
[2018-10-04] MEDS: CALCIUM 500MG/VIT-D 200 UNITS COMBO TABLET (FP) PO SCH (22:59)
[2018-10-04] MEDS: THIAMINE HCL 100 MG TABLET (FP) PO SCH (23:00)
[2018-10-05] MEDS: chlordiazePOXIDE HCL 25 MG CAPSULE PO SCH ×4 (05:41→22:16)
[2018-10-05] MEDS ORDERED: INSULIN SLIDING SCALE (NOVOLOG) 1 VIAL SQ ONE ×2 (07:58→18:08)
[2018-10-05] MEDS: INSULIN (NOVOLOG) ASPART 100 UNITS/ML 10ML VIAL SQ SCH ×3 (08:01→18:13)
[2018-10-05] MEDS: CALCIUM 500MG/VIT-D 200 UNITS COMBO TABLET (FP) PO SCH ×2 (08:01→18:13)
[2018-10-05] MEDS: INSULIN (LEVEMIR) 100 UNITS/ML UNITS SQ SCH ×3 (08:02→22:14)
[2018-10-05] MEDS: AZITHROMYCIN 250 MG TABLET PO SCH (10:20)
[2018-10-05] MEDS: ASPIRIN 81 MG CHEWABLE TABLETS PO SCH (10:20)
[2018-10-05] MEDS: GABAPENTIN 400 MG CAPSULE (FP) PO SCH ×2 (10:20→22:14)
[2018-10-05] MEDS: PRENATAL VITAMINS W/ FOLIC ACID TABLET (FP) PO SCH (10:20)
[2018-10-05 10:22] LABS: ALBUMIN 3.9 g/dl (3.4-5.0); ALK PHOS 111 U/L (45-117); ANION GAP 6 MMOL/L (8-16); BILIRUBIN,TOTAL 0.6 mg/dL (0.2-1); BLOOD UREA NITROGEN 13 mg/dL (7-18); CALCIUM 8.7 mg/dL (8.5-10.1); CHLORIDE 102 mmol/L (98-107); CO2 25 mmol/L (21-32); CREATININE 1.5 mg/dL (0.55-1.3); POTASSIUM 4.2 mmol/L (3.5-5.1); SGOT/AST 15 U/L (15-37); SGPT/ALT 19 U/L (13-61); SODIUM 133 mmol/L (136-145); TOT PROT 7.5 g/dl (6.4-8.2)
[2018-10-05] MEDS: CLOTRIMAZOLE 1% CREAM 15 GM TUBE TP SCH ×2 (10:22→22:15)
[2018-10-05] MEDS: FLUOCINONIDE 0.05% CREAM (15 GM TUBE) TP SCH ×2 (10:23→23:21)
[2018-10-05 10:49] LABS: HEMATOCRIT 38.1 % (35.4-49); HEMOGLOBIN 13.5 GM/dL (11.7-16.9); MCH 32.9 pg (25.7-33.7); MCHC 35.5 g/dl (32.0-35.9); MEAN CELL VOLUME 92.8 fl (80-96); PLATELET COUNT 249 K/MM3 (134-434); RDW 13.8 % (11.9-15.9); WHITE BLOOD COUNT 8.3 K/mm3 (4.0-10.0)
[2018-10-05] MEDS: NICOTINE 21 MG/24 HOURS TOPICAL PATCH TD SCH (11:01)
[2018-10-05 11:24] LABS: GLUCOSE,RANDOM 445 mg/dL (74-106)
[2018-10-05] MEDS: LOPERAMIDE HCL 2 MG CAPSULE PO PRN (14:03)
--- NOTE | 2018-10-05 16:03 | PN ---
[facility] CIWA - CIWA Score Nausea/Vomitin-No Nausea/No Vomiting Muscle Tremors: 3 Anxiety: 3 Agitation: 1-Slight > Activity Paroxysmal Sweats: 3 Orientation: 0-Oriented Tacttile Disturbances: 2-Mild Itch/Numbness/Burn Auditory Disturbances: 2-Mild Harshness/Frighten Visual Disturbances: 0-None Headache: 0-None Present CIWA-Ar Total Score: 14 S Progress Note (SOAP) Subjective: Diarrhea, Sweating, Tremors. Objective: PATIENT A & O X 3, OBSERVED AMBULATING ON UNIT. IN NO ACUTE DISTRESS. 10/05/18 16:02 Vital Signs Temperature 98.1 F 10/05/18 14:24 Pulse Rate 112 H 10/05/18 14:24 Respiratory Rate 18 10/05/18 14:24 Blood Pressure 101/69 10/05/18 14:24 O2 Sat by Pulse Oximetry (%) Laboratory Tests 10/04/18 10/04/18 10/04/18 10:58 12:00 12:37 WBC RBC Hgb Hct MCV MCH MCHC RDW Plt Count MPV Sodium Potassium Chloride Carbon Dioxide Anion Gap BUN Creatinine Creat Clearance w eGFR POC Glucometer 488 488 Random Glucose Calcium Total Bilirubin AST ALT Alkaline Phosphatase Total Protein Albumin RPR Titer HIV 1&2 Antibody Screen Negative HIV P24 Antigen Negative 10/04/18 10/04/18 10/05/18 16:59 21:07 05:40 WBC RBC Hgb Hct MCV MCH MCHC RDW Plt Count MPV Sodium Potassium Chloride Carbon Dioxide Anion Gap BUN Creatinine Creat Clearance w eGFR POC Glucometer 250 378 381 Random Glucose Calcium Total Bilirubin AST ALT Alkaline Phosphatase Total Protein Albumin RPR Titer HIV 1&2 Antibody Screen HIV P24 Antigen 10/05/18 10/05/18 10/05/18 06:25 06:25 06:25 WBC 8.3 RBC 4.10 Hgb 13.5 Hct 38.1 D MCV 92.8 MCH 32.9 MCHC 35.5 RDW 13.8 Plt Count 249 MPV 10.0 Sodium 133 L Potassium 4.2 Chloride 102 Carbon Dioxide 25 Anion Gap 6 L BUN 13 Creatinine 1.5 H Creat Clearance w eGFR 48.77 POC Glucometer Random Glucose 445 H* Calcium 8.7 Total Bilirubin 0.6 AST 15 ALT 19 Alkaline Phosphatase 111 Total Protein 7.5 Albumin 3.9 RPR Titer Nonreactive HIV 1&2 Antibody Screen HIV P24 Antigen 10/05/18 10/05/18 11:52 11:53 WBC RBC Hgb Hct MCV MCH MCHC RDW Plt Count MPV Sodium Potassium Chloride Carbon Dioxide Anion Gap BUN Creatinine Creat Clearance w eGFR POC Glucometer 132 137 Random Glucose Calcium Total Bilirubin AST ALT Alkaline Phosphatase Total Protein Albumin RPR Titer HIV 1&2 Antibody Screen HIV P24 Antigen LABS NOTED. Assessment: 10/05/18 16:02 WITHDRAWAL SYMPTOMS. Plan: CONTINUE DETOX. INCREASE DAILY PO FLUID INTAKE. PRN IMMODIUM FOR DIARRHEA. BASED UPON LAST FEW BGM READINGS, NOVOLOG INSULIN DOSE LOWERED TO 15 UNITS SQ TID WITH MEALS AND LEVEMIR INSULIN DOSE LOWERED TO 30 UNITS SQ BID. RN TO NOTIFY MEDICAL PROVIDER FOR EACH SUBSEQUENT BGM READING FOR FURTHER EVALUATION. WILL CONTINUE TO MONITOR.
--- NOTE | 2018-10-05 16:06 | PN ---
S Progress Note Note: RECEIVED NOTICE (DURING AM) FROM ARSEN FROM [facility] OF PATIENT'S ADMISSION RANDOM GLUCOSE LEVEL PART OF CMP: [id number]. HARLAN GONZALEZ RN MADE AWARE. Jignesh JOSE NP
[2018-10-05] MEDS: NICOTINE POLACRILEX 2 MG GUM BC PRN (18:26)
[2018-10-05] MEDS: THIAMINE HCL 100 MG TABLET (FP) PO SCH (22:14)
[2018-10-05] MEDS: ATORVASTATIN CA 40 MG TABLET (FP) PO SCH (22:14)
[2018-10-06] MEDS: chlordiazePOXIDE HCL 25 MG CAPSULE PO SCH (05:32)
[2018-10-06] MEDS ORDERED: INSULIN SLIDING SCALE (NOVOLOG) 1 VIAL SQ ONE ×2 (06:40→17:06)
[2018-10-06] MEDS: INSULIN (NOVOLOG) ASPART 100 UNITS/ML 10ML VIAL SQ SCH ×3 (06:58→17:28)
[2018-10-06] MEDS: CALCIUM 500MG/VIT-D 200 UNITS COMBO TABLET (FP) PO SCH ×2 (07:07→17:25)
[2018-10-06] MEDS: INSULIN (LEVEMIR) 100 UNITS/ML UNITS SQ SCH ×2 (09:25→22:36)
[2018-10-06] MEDS: ASPIRIN 81 MG CHEWABLE TABLETS PO SCH (10:21)
[2018-10-06] MEDS: PRENATAL VITAMINS W/ FOLIC ACID TABLET (FP) PO SCH (10:22)
[2018-10-06] MEDS: CLOTRIMAZOLE 1% CREAM 15 GM TUBE TP SCH ×2 (10:22→22:40)
[2018-10-06] MEDS: GABAPENTIN 400 MG CAPSULE (FP) PO SCH ×2 (10:22→22:37)
[2018-10-06] MEDS: AZITHROMYCIN 250 MG TABLET PO SCH (10:22)
[2018-10-06] MEDS: chlordiazePOXIDE 5 MG CAPSULE PO SCH ×3 (10:23→22:37)
[2018-10-06] MEDS: FLUOCINONIDE 0.05% CREAM (15 GM TUBE) TP SCH ×2 (10:25→22:40)
[2018-10-06] MEDS: NICOTINE 21 MG/24 HOURS TOPICAL PATCH TD SCH (10:25)
[2018-10-06] MEDS: NICOTINE POLACRILEX 2 MG GUM BC PRN (10:28)
--- NOTE | 2018-10-06 17:32 | PN ---
S CIWA - CIWA Score Nausea/Vomitin-No Nausea/No Vomiting Muscle Tremors: 3 Anxiety: 3 Agitation: 4-Moderately Restless Paroxysmal Sweats: 2 Orientation: 0-Oriented Tacttile Disturbances: 0-None Auditory Disturbances: 0-None Visual Disturbances: 0-None Headache: 0-None Present CIWA-Ar Total Score: 12 S Progress Note (SOAP) Plan: subjective sweats shakes Objective A & ox 3 Restless, ambulating frequently around in no distress Vital Signs Temperature 97.9 F 10/06/18 17:20 Pulse Rate 105 H 10/06/18 17:20 Respiratory Rate 18 10/06/18 17:20 Blood Pressure 118/78 10/06/18 17:20 O2 Sat by Pulse Oximetry (%) Assesment withdrawal sx Plan Continue detox Continue antiglycemic agent Encouraged to avoid sweet drinks Continue hydration
[2018-10-06] MEDS: LOPERAMIDE HCL 2 MG CAPSULE PO PRN (17:53)
[2018-10-06] MEDS: ATORVASTATIN CA 40 MG TABLET (FP) PO SCH (22:37)
[2018-10-06] MEDS: THIAMINE HCL 100 MG TABLET (FP) PO SCH (22:40)
[2018-10-07] MEDS ORDERED: INSULIN (NOVOLOG) ASPART 100 UNITS/ML 10ML VIAL SQ ONE (03:36)
[2018-10-07] MEDS ORDERED: INSULIN SLIDING SCALE (NOVOLOG) 1 VIAL SQ ONE ×4 (03:47→17:06)
--- NOTE | 2018-10-07 04:03 | PN ---
[facility] Progress Note Note: Patient's blood sugar now is Vital Signs Temperature 98.6 F 10/06/18 21:22 Pulse Rate 109 H 10/06/18 21:22 Respiratory Rate 18 10/07/18 00:29 Blood Pressure 129/76 10/06/18 21:22 O2 Sat by Pulse Oximetry (%) Action: Insulin Novolog 12 units subcutaneous ordered
[2018-10-07] MEDS: chlordiazePOXIDE 5 MG CAPSULE PO SCH (06:20)
[2018-10-07] MEDS: INSULIN (NOVOLOG) ASPART 100 UNITS/ML 10ML VIAL SQ SCH ×3 (06:21→17:10)
[2018-10-07] MEDS: CALCIUM 500MG/VIT-D 200 UNITS COMBO TABLET (FP) PO SCH ×2 (07:08→17:07)
[2018-10-07] MEDS: INSULIN (LEVEMIR) 100 UNITS/ML UNITS SQ SCH ×2 (09:12→22:40)
[2018-10-07] MEDS: ASPIRIN 81 MG CHEWABLE TABLETS PO SCH (09:12)
[2018-10-07] MEDS: GABAPENTIN 400 MG CAPSULE (FP) PO SCH ×2 (09:12→22:36)
[2018-10-07] MEDS: CLOTRIMAZOLE 1% CREAM 15 GM TUBE TP SCH ×2 (09:13→22:36)
[2018-10-07] MEDS: PRENATAL VITAMINS W/ FOLIC ACID TABLET (FP) PO SCH (09:13)
[2018-10-07] MEDS: NICOTINE 21 MG/24 HOURS TOPICAL PATCH TD SCH (09:13)
[2018-10-07] MEDS: AZITHROMYCIN 250 MG TABLET PO SCH (09:13)
[2018-10-07] MEDS: FLUOCINONIDE 0.05% CREAM (15 GM TUBE) TP SCH ×2 (09:14→22:35)
--- NOTE | 2018-10-07 09:21 | PN ---
S CIWA - CIWA Score Nausea/Vomitin-No Nausea/No Vomiting Muscle Tremors: 2 Anxiety: 1-Mildly Anxious Agitation: 1-Slight > Activity Paroxysmal Sweats: 1-Minimal Palms Moist Orientation: 0-Oriented Tacttile Disturbances: 0-None Auditory Disturbances: 0-None Visual Disturbances: 0-None Headache: 2-Mild CIWA-Ar Total Score: 7 BHS Progress Note (SOAP) Subjective: feeling better less tremor mild sweating tolerate food and fluid well patient has 2-3 weeks of medications at home and has next visiting schedule with his primary care provider next two weeks Objective: 10/07/18 09:19 Vital Signs Temperature 97.1 F L 10/07/18 06:14 Pulse Rate 101 H 10/07/18 06:14 Respiratory Rate 18 10/07/18 06:14 Blood Pressure 135/81 10/07/18 06:14 O2 Sat by Pulse Oximetry (%) Laboratory Last Values WBC 8.3 K/mm3 (4.0-10.0) 10/05/18 06:25 RBC 4.10 M/mm3 (4.00-5.60) 10/05/18 06:25 Hgb 13.5 GM/dL (11.7-16.9) 10/05/18 06:25 Hct 38.1 % (35.4-49) D 10/05/18 06:25 MCV 92.8 fl (80-96) 10/05/18 06:25 MCH 32.9 pg (25.7-33.7) 10/05/18 06:25 MCHC 35.5 g/dl (32.0-35.9) 10/05/18 06:25 RDW 13.8 % (11.9-15.9) 10/05/18 06:25 Plt Count 249 K/MM3 (134-434) 10/05/18 06:25 MPV 10.0 fl (7.5-11.1) 10/05/18 06:25 Sodium 133 mmol/L (136-145) L 10/05/18 06:25 Potassium 4.2 mmol/L (3.5-5.1) 10/05/18 06:25 Chloride 102 mmol/L (98-107) 10/05/18 06:25 Carbon Dioxide 25 mmol/L (21-32) 10/05/18 06:25 Anion Gap 6 MMOL/L (8-16) L 10/05/18 06:25 BUN 13 mg/dL (7-18) 10/05/18 06:25 Creatinine 1.5 mg/dL (0.55-1.3) H 10/05/18 06:25 Creat Clearance w eGFR 48.77 (>60) 10/05/18 06:25 POC Glucometer 441 UNITS (80-120) 10/07/18 06:05 Random Glucose 445 mg/dL (74-106) H* 10/05/18 06:25 Calcium 8.7 mg/dL (8.5-10.1) 10/05/18 06:25 Total Bilirubin 0.6 mg/dL (0.2-1) 10/05/18 06:25 AST 15 U/L (15-37) 10/05/18 06:25 ALT 19 U/L (13-61) 10/05/18 06:25 Alkaline Phosphatase 111 U/L (45-117) 10/05/18 06:25 Total Protein 7.5 g/dl (6.4-8.2) 10/05/18 06:25 Albumin 3.9 g/dl (3.4-5.0) 10/05/18 06:25 RPR Titer Nonreactive (NONREACTIVE) 10/05/18 06:25 HIV 1&2 Antibody Screen Negative 10/04/18 12:00 HIV P24 Antigen Negative 10/04/18 12:00 lab noted encourage the patient brings in lab report and list of medication to aftercare appointments discuss renal complications related to diabetes Assessment: 10/07/18 09:20 mild withdrawal sx has diabetes since 1995 current treatment regular insulin tid before meals and levermir twice daily Plan: continue detox
[2018-10-07 10:51] LABS: ANION GAP 6 MMOL/L (8-16); BLOOD UREA NITROGEN 19 mg/dL (7-18); CALCIUM 9.5 mg/dL (8.5-10.1); CHLORIDE 103 mmol/L (98-107); CO2 26 mmol/L (21-32); CREATININE 1.5 mg/dL (0.55-1.3); SODIUM 135 mmol/L (136-145)
[2018-10-07 10:52] LABS: GLUCOSE,RANDOM 402 mg/dL (74-106)
[2018-10-07] MEDS: chlordiazePOXIDE HCL 10 MG CAPSULE PO SCH ×3 (11:28→22:36)
[2018-10-07] MEDS: NICOTINE POLACRILEX 2 MG GUM BC PRN (17:12)
[2018-10-07] MEDS: LOPERAMIDE HCL 2 MG CAPSULE PO PRN (20:47)
[2018-10-07] MEDS: ATORVASTATIN CA 40 MG TABLET (FP) PO SCH (22:36)
[2018-10-07] MEDS: THIAMINE HCL 100 MG TABLET (FP) PO SCH (22:36)
[2018-10-08] MEDS: chlordiazePOXIDE HCL 10 MG CAPSULE PO SCH (05:33)
[2018-10-08] MEDS ORDERED: INSULIN SLIDING SCALE (NOVOLOG) 1 VIAL SQ ONE ×2 (06:51→11:29)
[2018-10-08] MEDS: INSULIN (NOVOLOG) ASPART 100 UNITS/ML 10ML VIAL SQ SCH ×2 (06:55→11:35)
[2018-10-08] MEDS: INSULIN (LEVEMIR) 100 UNITS/ML UNITS SQ SCH (06:55)
[2018-10-08] MEDS: CALCIUM 500MG/VIT-D 200 UNITS COMBO TABLET (FP) PO SCH (07:26)
--- NOTE | 2018-10-08 08:29 | DS ---
[facility] Detox Discharge Summary Admission Date: 10/04/18 Discharge Date: 10/08/18 - History Present History: Alcohol Dependence Additional Comments: 53 years old male admitted on 10/04/18 for alcohol withdrawal stabilization completed detox regimen aftercare [facility] Pertinent Past History: encourage bring in lab report to aftercare appointment medication list in wallet bring medication list and bottles of medication to aftercare appointments update medication list when change of medication important of medication adherence - Physical Exam Results Vital Signs: Vital Signs Temperature 96.8 F L 10/08/18 06:18 Pulse Rate 101 H 10/08/18 06:18 Respiratory Rate 18 10/08/18 06:18 Blood Pressure 119/78 10/08/18 06:18 O2 Sat by Pulse Oximetry (%) Pertinent Admission Physical Exam Findings: alcohol withdrawal sx Laboratory Last Values WBC 8.3 K/mm3 (4.0-10.0) 10/05/18 06:25 RBC 4.10 M/mm3 (4.00-5.60) 10/05/18 06:25 Hgb 13.5 GM/dL (11.7-16.9) 10/05/18 06:25 Hct 38.1 % (35.4-49) D 10/05/18 06:25 MCV 92.8 fl (80-96) 10/05/18 06:25 MCH 32.9 pg (25.7-33.7) 10/05/18 06:25 MCHC 35.5 g/dl (32.0-35.9) 10/05/18 06:25 RDW 13.8 % (11.9-15.9) 10/05/18 06:25 Plt Count 249 K/MM3 (134-434) 10/05/18 06:25 MPV 10.0 fl (7.5-11.1) 10/05/18 06:25 Sodium 135 mmol/L (136-145) L 10/07/18 07:50 Potassium 4.0 mmol/L (3.5-5.1) 10/07/18 07:50 Chloride 103 mmol/L (98-107) 10/07/18 07:50 Carbon Dioxide 26 mmol/L (21-32) 10/07/18 07:50 Anion Gap 6 MMOL/L (8-16) L 10/07/18 07:50 BUN 19 mg/dL (7-18) H 10/07/18 07:50 Creatinine 1.5 mg/dL (0.55-1.3) H 10/07/18 07:50 Creat Clearance w eGFR 48.77 (>60) 10/07/18 07:50 POC Glucometer 399 UNITS (80-120) 10/08/18 05:32 Random Glucose 402 mg/dL (74-106) H* 10/07/18 07:50 Calcium 9.5 mg/dL (8.5-10.1) 10/07/18 07:50 Total Bilirubin 0.6 mg/dL (0.2-1) 10/05/18 06:25 AST 15 U/L (15-37) 10/05/18 06:25 ALT 19 U/L (13-61) 10/05/18 06:25 Alkaline Phosphatase 111 U/L (45-117) 10/05/18 06:25 Total Protein 7.5 g/dl (6.4-8.2) 10/05/18 06:25 Albumin 3.9 g/dl (3.4-5.0) 10/05/18 06:25 RPR Titer Nonreactive (NONREACTIVE) 10/05/18 06:25 HIV 1&2 Antibody Screen Negative 10/04/18 12:00 HIV P24 Antigen Negative 10/04/18 12:00 lab noted - Treatment Hospital Course: Detox Protocol Followed, Detoxed Safely, Responded well, Discharged Condition Good, Rehab Referral Accepted Patient has Accepted a Rehab Referral to: [facility] - Medication Discharge Medications: Ambulatory Orders Gabapentin 800 mg PO BID 12/11/17 Insulin (Novolog) [Novolog Flexpen -] 20 units SQ TID 12/11/17 Calcium Carbonate/Vitamin D3 [Calcium 500-Vit D3 200 Caplet] 1 each PO BID 05/22 Clotrimazole [Jock Itch Relief] 15 gm TP BID 05/22/18 Ergocalciferol [Vitamin D2] 50,000 unit PO WEEKLY 05/22/18 Aspirin [ASA -] 81 mg PO DAILY #30 tab.chew 05/25/18 Atorvastatin Ca [Lipitor] 40 mg PO HS #30 tablet 05/25/18 Fluocinonide 0.05% Cream [Lidex 0.05% Cream -] 1 applic TP BID #1 tube 05/25/18 Insulin Glargine,Hum.rec.anlog [Lantus Solostar PEN -] 40 units SQ BID #1 ins Nifedipine [Procardia Xl] 60 mg PO DAILY #30 tab.er.24 05/25/18 Leuprolide Acetate [Lupron Depot 7.5MG -] 7.5 mg IM MONTHLY 10/04/18 - Diagnosis (1) DIABETES TYPE 2 Current Visit: Yes Status: Chronic (2) Alcohol dependence with uncomplicated withdrawal Current Visit: Yes Status: Acute (3) Essential (primary) hypertension Current Visit: Yes Status: Chronic (4) Elevated cholesterol Current Visit: Yes Status: Chronic (5) Nicotine dependence Current Visit: Yes Status: Acute Qualifiers: Nicotine product type: cigarettes Substance use status: in withdrawal Qualified Code(s): F17.213 - Nicotine dependence, cigarettes, with withdrawal - AMA Did Patient Leave Against Medical Advice: No
[2018-10-08] MEDS ORDERED: ERGOCALCIFEROL (VITAMIN D2) 50,000 UNIT CAPSULE (FP) PO SCH (10:00)
[2018-10-08] MEDS: CLOTRIMAZOLE 1% CREAM 15 GM TUBE TP SCH (10:13)
[2018-10-08] MEDS: PRENATAL VITAMINS W/ FOLIC ACID TABLET (FP) PO SCH (10:14)
[2018-10-08] MEDS: ASPIRIN 81 MG CHEWABLE TABLETS PO SCH (10:14)
[2018-10-08] MEDS: GABAPENTIN 400 MG CAPSULE (FP) PO SCH (10:14)
[2018-10-08] MEDS: AZITHROMYCIN 250 MG TABLET PO SCH (10:14)
[2018-10-08] MEDS: NICOTINE 21 MG/24 HOURS TOPICAL PATCH TD SCH (10:15)
[2018-10-08] MEDS: NICOTINE POLACRILEX 2 MG GUM BC PRN (10:16)
[2018-10-08] MEDS: FLUOCINONIDE 0.05% CREAM (15 GM TUBE) TP SCH (10:17)
[2018-10-08 13:10] VITALS: BP 131/78; PULSE 112; TEMP 96.6
== END 2018-10-08 15:42 | disposition other institution (70) | DRG 774 ==
LOC: YASAS 08:43 → Y3N 11:27
PROVIDERS: ADMIT Surgery; ATTEND Surgery
PROC: HZ2ZZZZ Detoxification Services for Substance Abuse Treatment (ICD-10-PCS; principal; 2018-10-04)
DX: F10.230 Alcohol dependence with withdrawal, uncomplicated (principal); F14.20 Cocaine dependence, uncomplicated; F17.213 Nicotine dependence, cigarettes, with withdrawal; I10 Essential (primary) hypertension; L30.9 Dermatitis, unspecified; E78.00 Pure hypercholesterolemia, unspecified; E11.65 Type 2 diabetes mellitus with hyperglycemia; Z79.4 Long term (current) use of insulin; G62.9 Polyneuropathy, unspecified; R63.4 Abnormal weight loss; Z68.28 Body mass index [BMI] 28.0-28.9, adult; Z85.46 Personal history of malignant neoplasm of prostate
CPT/HCPCS: 36415; 80048; 80053; 82962; 85027; 86593; 87389

== ENCOUNTER 2018-10-08 16:12 | Inpatient (IN) | payer OTHER ==
--- NOTE | 2018-10-08 13:14 | HP ---
[facility] Rehab Assess/Revision - Admission History Admitted to Rehab from: [facility] Date of Admission to Rehab: 10/08/18 - Findings Detox History & Physical reviewed: Yes Concur with findings: Yes Comments/Additional Findings: transferred from detox to rehab admission as per protocol Inpatient Rehab Admission - Rehab Decision to Admit Inpatient rehab admission?: Yes - Initial Determination Are CD services needed?: Yes Free of communicable disease: Yes Not in need of hospitalization: Yes - Rehab Admission Criteria Previous failed treatment: Yes Poor recovery environment: Yes Comorbidities: Yes Lacks judgement: No Patient is meeting Inpatient Rehab admission criteria:: Yes
[~2018-10-08 16:12] MED LIST: COLLOIDAL OATMEAL 1 BAR EACH TP PRN; MAG HYDROX/AL HYDROX/SIMETH 30 ML UNIT-DOSE CUP PO PRN; MAGNESIUM CITRATE 300 ML BOTTLE PO PRN; MAGNESIUM HYDROX 2400MG/30ML ORAL SUSPENSION 30 ML CUP PO PRN; MENTHOL/PHENOL 1 EACH UD MM PRN; NICOTINE 14 MG/24 HOURS TOPICAL PATCH TD PRN; NICOTINE POLACRILEX 2 MG GUM BUC PRN; P-EPHED 60MG/TRIPROLIDI 2.5MG TABLET PO PRN; guaiFENesin/D-METHORPHAN HB 10 ML UNIT-DOSE CUPS PO PRN
[2018-10-08] MEDS: INSULIN SLIDING SCALE (NOVOLOG) 1 VIAL SQ SCH ×2 (17:24→21:39)
[2018-10-08] MEDS: Insulin (LOG) Aspart 100 UNITS/ML VIAL SQ SCH (17:30)
[2018-10-08] MEDS: INSULIN (LEVEMIR) 100 UNITS/ML UNITS SQ SCH (21:40)
[2018-10-08] MEDS: GABAPENTIN 400 MG CAPSULE (FP) PO SCH (21:41)
[2018-10-08] MEDS: ATORVASTATIN CA 40 MG TABLET (FP) PO SCH (21:41)
[2018-10-08] MEDS: LOPERAMIDE HCL 2 MG CAPSULE PO PRN (21:43)
[2018-10-08] MEDS: THIAMINE HCL 100 MG TABLET (FP) PO SCH (21:44)
[2018-10-08] MEDS: CLOTRIMAZOLE 1% CREAM 15 GM TUBE TP SCH (21:44)
[2018-10-08] MEDS ORDERED: diphenhydrAMINE HCL 25 MG CAPSULE (FP) PO ONE (22:00)
[2018-10-09] MEDS: ACETAMINOPHEN 325 MG TABLET (FP) PO PRN (06:52)
[2018-10-09] MEDS ORDERED: INSULIN (NOVOLOG) ASPART 100 UNITS/ML 10ML VIAL ONE ×3 (08:00→16:07)
[2018-10-09] MEDS: INSULIN (LEVEMIR) 100 UNITS/ML UNITS SQ SCH ×2 (08:22→21:43)
[2018-10-09] MEDS: Insulin (LOG) Aspart 100 UNITS/ML VIAL SQ SCH ×3 (08:23→17:20)
[2018-10-09] MEDS: INSULIN SLIDING SCALE (NOVOLOG) 1 VIAL SQ SCH ×3 (08:23→21:43)
[2018-10-09] MEDS: ASPIRIN 81 MG CHEWABLE TABLETS PO SCH (10:13)
[2018-10-09] MEDS: PRENATAL VITAMINS W/ FOLIC ACID TABLET (FP) PO SCH (10:13)
[2018-10-09] MEDS: GABAPENTIN 400 MG CAPSULE (FP) PO SCH ×2 (10:14→21:41)
[2018-10-09] MEDS: CLOTRIMAZOLE 1% CREAM 15 GM TUBE TP SCH ×2 (10:14→21:43)
[2018-10-09] MEDS ORDERED: OFLOXACIN 0.3% OTIC SOLUTION 5 ML BOTTLE AD ONE ×2 (11:23)
[2018-10-09] MEDS ORDERED: hydrOXYzine PAMOATE 50 MG CAPSULE (FP) PO PRN (11:33)
--- NOTE | 2018-10-09 11:47 | PN ---
[facility] Progress Note Note: PT C/O REQUESTING TO COMPLETE ANTIBIOTICS EAR DROPS FOR EAR INFECTION SO CAN FOLLOW UP WITH ENT AFTER REHAB. PT REPORTS HE DID NOT INDICATE ON ADMISSION ABOUT EAR DROPS BUT HAS IT AT HOME AND REPORTED INCOMPLETE Z-CHRISTINE TREATMENT WHILE AT HOME . PT RESTARTED AND COMPLETED LAST DOES OF ZITHROMAX 250 MG PO YESTERDAY IN DETOX BEFORE REFERRAL TO REHAB HERE. REPORTS HE SAW HIS PMD AND ENT SOMETIME IN JUNE 2018 FOR EAR COMPLAINTS/WAX TREATMENT. PT STATES PMD IS DR. NIA PHILIPPE ON [address] [place] [address]. Vital Signs 10/09/18 06:46 Temperature 97.9 F Pulse Rate 113 H Respiratory 18 Rate Blood Pressure 146/89 PLAN:REORDER OFLOXACIN OTIC DROP 10 DROPS TO RIGHT EAR BID X 10 DAYS FOLLOW UP WITH PMD AND ENT AFTER REHAB TREATMENT.
[2018-10-09] MEDS: ATORVASTATIN CA 40 MG TABLET (FP) PO SCH (21:41)
[2018-10-09] MEDS: NICOTINE POLACRILEX 4 MG GUM BUC PRN (21:41)
[2018-10-09] MEDS: THIAMINE HCL 100 MG TABLET (FP) PO SCH (21:41)
[2018-10-09] MEDS: MELATONIN 5 MG TABLETS PO PRN (21:42)
[2018-10-09] MEDS: LOPERAMIDE HCL 2 MG CAPSULE PO PRN (21:43)
[2018-10-09] MEDS: OFLOXACIN 0.3% OTIC SOLUTION 5 ML BOTTLE AD SCH (21:44)
[2018-10-10] MEDS ORDERED: INSULIN (NOVOLOG) ASPART 100 UNITS/ML 10ML VIAL ONE ×4 (07:43→16:34)
[2018-10-10] MEDS: Insulin (LOG) Aspart 100 UNITS/ML VIAL SQ SCH ×3 (08:29→16:44)
[2018-10-10] MEDS: INSULIN (LEVEMIR) 100 UNITS/ML UNITS SQ SCH ×2 (08:32→21:23)
[2018-10-10] MEDS: INSULIN SLIDING SCALE (NOVOLOG) 1 VIAL SQ SCH ×5 (08:35→21:24)
[2018-10-10] MEDS: PRENATAL VITAMINS W/ FOLIC ACID TABLET (FP) PO SCH (10:02)
[2018-10-10] MEDS: CLOTRIMAZOLE 1% CREAM 15 GM TUBE TP SCH ×2 (10:02→21:25)
[2018-10-10] MEDS: GABAPENTIN 400 MG CAPSULE (FP) PO SCH ×2 (10:02→21:23)
[2018-10-10] MEDS: ASPIRIN 81 MG CHEWABLE TABLETS PO SCH (10:02)
[2018-10-10] MEDS: LOPERAMIDE HCL 2 MG CAPSULE PO PRN (10:03)
[2018-10-10] MEDS: NICOTINE POLACRILEX 4 MG GUM BUC PRN ×2 (10:04→21:25)
[2018-10-10] MEDS: OFLOXACIN 0.3% OTIC SOLUTION 5 ML BOTTLE AD SCH ×2 (10:05→21:27)
[2018-10-10] MEDS ORDERED: FLUOCINONIDE 0.05% CREAM (60 GM TUBE) TP SCH (11:30)
[2018-10-10] MEDS: FLUOCINONIDE 0.05% CREAM (60 GM TUBE) TP SCH ×2 (14:11→21:26)
[2018-10-10] MEDS: THIAMINE HCL 100 MG TABLET (FP) PO SCH (21:23)
[2018-10-10] MEDS: MELATONIN 5 MG TABLETS PO PRN (21:24)
[2018-10-10] MEDS: ATORVASTATIN CA 40 MG TABLET (FP) PO SCH (21:26)
[2018-10-10] MEDS: ACETAMINOPHEN 325 MG TABLET (FP) PO PRN (22:41)
[2018-10-11] MEDS: ACETAMINOPHEN 325 MG TABLET (FP) PO PRN ×3 (06:48→21:24)
[2018-10-11] MEDS ORDERED: INSULIN (NOVOLOG) ASPART 100 UNITS/ML 10ML VIAL ONE ×3 (07:35→16:39)
[2018-10-11] MEDS: INSULIN (LEVEMIR) 100 UNITS/ML UNITS SQ SCH ×2 (07:41→21:23)
[2018-10-11] MEDS: Insulin (LOG) Aspart 100 UNITS/ML VIAL SQ SCH ×4 (07:42→16:43)
[2018-10-11] MEDS: INSULIN SLIDING SCALE (NOVOLOG) 1 VIAL SQ SCH ×4 (07:42→21:23)
[2018-10-11] MEDS: ASPIRIN 81 MG CHEWABLE TABLETS PO SCH (09:46)
[2018-10-11] MEDS: GABAPENTIN 400 MG CAPSULE (FP) PO SCH ×2 (09:46→21:23)
[2018-10-11] MEDS: PRENATAL VITAMINS W/ FOLIC ACID TABLET (FP) PO SCH (09:46)
[2018-10-11] MEDS: CLOTRIMAZOLE 1% CREAM 15 GM TUBE TP SCH ×2 (09:47→21:25)
[2018-10-11] MEDS: OFLOXACIN 0.3% OTIC SOLUTION 5 ML BOTTLE AD SCH ×2 (09:47→21:24)
[2018-10-11] MEDS: FLUOCINONIDE 0.05% CREAM (60 GM TUBE) TP SCH ×2 (09:47→21:25)
--- NOTE | 2018-10-11 13:34 | PN ---
S Progress Note Note: BGM ACLUNCH WAS 133 MG/DL. INSULIN ASPART NOVOLOG 35 UNITS HELD. PLAN:CHECK BGM AT 4:30 AND TREAT NEEDED. Laboratory Tests 10/08/18 10/08/18 10/08/18 17:23 18:08 21:38 POC Glucometer 534 461 148 Hemoglobin A1c % 10/09/18 10/09/18 10/09/18 06:45 08:30 11:29 POC Glucometer 394 363 Hemoglobin A1c % 11.6 H 10/09/18 10/09/18 10/10/18 17:18 20:28 06:56 POC Glucometer 199 115 303 Hemoglobin A1c % 10/10/18 10/10/18 10/10/18 12:06 16:43 20:49 POC Glucometer 337 247 193 Hemoglobin A1c % 10/11/18 10/11/18 06:44 12:08 POC Glucometer 200 133 Hemoglobin A1c %
[2018-10-11] MEDS: NICOTINE POLACRILEX 4 MG GUM BUC PRN ×2 (14:26→21:25)
[2018-10-11] MEDS: THIAMINE HCL 100 MG TABLET (FP) PO SCH (21:23)
[2018-10-11] MEDS: ATORVASTATIN CA 40 MG TABLET (FP) PO SCH (21:23)
[2018-10-11] MEDS: LOPERAMIDE HCL 2 MG CAPSULE PO PRN (21:24)
[2018-10-11] MEDS: MELATONIN 5 MG TABLETS PO PRN (21:26)
[2018-10-12] MEDS: LOPERAMIDE HCL 2 MG CAPSULE PO PRN (05:52)
[2018-10-12] MEDS: ACETAMINOPHEN 325 MG TABLET (FP) PO PRN (05:52)
[2018-10-12 06:52] VITALS: BP 126/88; PULSE 96; TEMP 97.8
[2018-10-12] MEDS ORDERED: INSULIN (NOVOLOG) ASPART 100 UNITS/ML 10ML VIAL ONE (07:07)
[2018-10-12] MEDS: ASPIRIN 81 MG CHEWABLE TABLETS PO SCH (10:04)
[2018-10-12] MEDS: GABAPENTIN 400 MG CAPSULE (FP) PO SCH (10:04)
[2018-10-12] MEDS: INSULIN (LEVEMIR) 100 UNITS/ML UNITS SQ SCH (10:05)
[2018-10-12] MEDS: INSULIN SLIDING SCALE (NOVOLOG) 1 VIAL SQ SCH (10:05)
[2018-10-12] MEDS: PRENATAL VITAMINS W/ FOLIC ACID TABLET (FP) PO SCH (10:05)
[2018-10-12] MEDS: OFLOXACIN 0.3% OTIC SOLUTION 5 ML BOTTLE AD SCH (10:05)
[2018-10-12] MEDS: Insulin (LOG) Aspart 100 UNITS/ML VIAL SQ SCH (10:05)
[2018-10-12] MEDS: FLUOCINONIDE 0.05% CREAM (60 GM TUBE) TP SCH (10:06)
[2018-10-12] MEDS: CLOTRIMAZOLE 1% CREAM 15 GM TUBE TP SCH (10:06)
--- NOTE | 2018-10-12 15:18 | PN ---
[facility] Progress Note Note: PT DECLINED TO CONTINUE WITH DETOX STATING HE CALLED HIS AND FOUND OUT HE HAS A COURT DATE TODAY. PT HAS BEEN REFERRED [facility] ON [address], [place] FOR CD AFTERCARE. PT REPORTS HE HAS PCP DR. NIA PHILIPPE9uNABLE TO FURNISH LOCATION)BUT SAYS HE IS GOING THERE TODAY TO SEE HIS DOCTOR. 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 PT REPORTS HE HAS HIS INSULINS AT HOME. ALERT O X 3. DENIES S/H/I. Home Medications Medication Instructions Recorded Gabapentin 800 mg PO BID 12/11/17 Insulin (Novolog) [Novolog Flexpen 35 units SQ TID 12/11/17 -] Calcium Carbonate/Vitamin D3 1 each PO BID 05/22/18 [Calcium 500-Vit D3 200 Caplet] Clotrimazole [Jock Itch Relief] 15 gm TP BID 05/22/18 Ergocalciferol [Vitamin D2] 50,000 unit PO WEEKLY 05/22/18 Fluocinonide 0.05% Cream [Lidex 1 applic TP BID #1 tube 05/25/18 0.05% Cream -] Leuprolide Acetate [Lupron Depot 7.5 mg IM MONTHLY 10/04/18 7.5MG -] Insulin Glargine,Hum.rec.anlog 55 unit SQ ASDIR 10/08/18 [Basaglar Kwikpen U-100] Insulin Lispro [Admelog Solostar] 35 unit SQ TID 10/08/18 Aspirin [ASA -] 81 mg PO DAILY #30 tab.chew 10/12/18 Atorvastatin Ca [Lipitor] 40 mg PO HS #30 tablet 10/12/18 Vital Signs (72 hours) 10/10/18 10/10/18 10/10/18 00:30 03:30 06:48 Temperature 97.6 F Pulse Rate 98 H Respiratory 18 18 20 Rate Blood Pressure 129/83 10/11/18 10/11/18 10/11/18 00:30 03:30 07:08 Temperature 98.6 F Pulse Rate 115 H Respiratory 18 18 18 Rate Blood Pressure 115/76 10/12/18 10/12/18 10/12/18 00:30 03:30 06:51 Temperature 97.8 F Pulse Rate 96 H Respiratory 20 18 18 Rate Blood Pressure 126/88 Laboratory Tests 10/08/18 10/08/18 10/08/18 17:23 18:08 21:38 POC Glucometer 534 461 148 Hemoglobin A1c % 10/09/18 10/09/18 10/09/18 06:45 08:30 11:29 POC Glucometer 394 363 Hemoglobin A1c % 11.6 H 10/09/18 10/09/18 10/10/18 17:18 20:28 06:56 POC Glucometer 199 115 303 Hemoglobin A1c % 10/10/18 10/10/18 10/10/18 12:06 16:43 20:49 POC Glucometer 337 247 193 Hemoglobin A1c % 10/11/18 10/11/18 10/11/18 06:44 12:08 16:41 POC Glucometer 200 133 238 Hemoglobin A1c % 10/11/18 10/12/18 20:44 06:58 POC Glucometer 239 208 Hemoglobin A1c % NAD MEDICALLY STABLE PLAN:FOLLOW UP WITH CD AFTERCARE RECOMMENDED FOLLOW UP WITH PCP DR. NIA PHILIPPE TODAY 10/12/18 AFTER DISCHARGE.
== END 2018-10-12 10:15 | disposition left against medical advice (07) | DRG 770 ==
LOC: YASAS 16:12 → Y5N 16:13
PROVIDERS: ADMIT Neuromusculoskeletal Medicine & OMM; ATTEND Neuromusculoskeletal Medicine & OMM
PROC: HZ42ZZZ Group Counseling for Substance Abuse Treatment, Cognitive-Behavioral (ICD-10-PCS; principal; 2018-10-08)
DX: F10.20 Alcohol dependence, uncomplicated (principal); F14.20 Cocaine dependence, uncomplicated; F16.20 Hallucinogen dependence, uncomplicated; F17.210 Nicotine dependence, cigarettes, uncomplicated; I10 Essential (primary) hypertension; E78.00 Pure hypercholesterolemia, unspecified; E11.9 Type 2 diabetes mellitus without complications; Z79.4 Long term (current) use of insulin; G62.9 Polyneuropathy, unspecified; Z85.46 Personal history of malignant neoplasm of prostate
CPT/HCPCS: 82962; 83036

== ENCOUNTER 2018-11-07 11:49 | Inpatient (IN) | payer OTHER ==
[2018-11-07 12:20] VITALS: BMI 28.2
--- NOTE | 2018-11-07 13:44 | HP ---
CIWA Score Nausea/Vomitin Muscle Tremors: 2 Anxiety: 2 Agitation: 2 Paroxysmal Sweats: 1-Minimal Palms Moist Orientation: 0-Oriented Tacttile Disturbances: 1-Very Mild Itch/Numbness Auditory Disturbances: 1-Very Mild Visual Disturbances: 0-None Headache: 2-Mild CIWA-Ar Total Score: 13 - Admission Criteria [facility] Guidelines: Admission for Medically Managed Detox: Requires at least one of the followin. CIWA greater than 12 2. Seizures within the past 24 hours 3. Delirium tremens within the past 24 hours 4. Hallucinations within the past 24 hours 5. Acute intervention needed for co occurring medical disorder 6. Acute intervention needed for co occurring psychiatric disorder 7. Severe withdrawal that cannot be handled at a lower level of care (continued vomiting, continued diarrhea, abnormal vital signs) requiring intravenous medication and/or fluids 8. Admission ROS S - HPI Chief Complaint: i need help to stop using alcohol,cocaine pcp Allergies/Adverse Reactions: Allergies Allergy/AdvReac Type Severity Reaction Status Date / Time Penicillins Allergy Severe Rash Verified 11/07/18 12:31 pork derived (porcine) Allergy Severe Hives Verified 11/07/18 12:31 History of Present Illness: this 53 years old male with alcohol,cocaine,pcp,withdrawal symptom,seeking detox , multiple admissions in detox,but keep relapsing, last detox 10/04/18 to 10/08/18 [facility]hab 10/08/18 to 10/12/18 iddm,ca of prostate 2018 treated with lupron im once a month,next treatment weight loss nicotine dependence 10 cigarette rash of neck pock itch longest period of sobriety 1 month plan for rehab Exam Limitations: No Limitations - Ebola screening Have you traveled outside of the country in the last 21 days: No Have you had contact with anyone from an Ebola affected area: No Have you been sick,other than usual withdrawal symptoms: No Do you have a fever: No - Review of Systems Constitutional: Loss of Appetite, Malaise, Night Sweats, Changes in sleep, Weakness, Unintentional Wgt. Loss EENT: reports: Tearing, Nose Congestion Respiratory: reports: No Symptoms reported Cardiac: reports: No Symptoms Reported GI: reports: Diarrhea, Nausea, Vomiting : reports: Other (ca of prostate) Musculoskeletal: reports: Back Pain, Muscle Pain Integumentary: reports: Dryness Neuro: reports: Headache, Tremors Endocrine: reports: No Symptoms Reported, Other (iddm) Hematology: reports: No Symptoms Reported Psychiatric: reports: No Sypmtoms Reported, Judgement Intact, Mood/Affect Appropiate, Orientated x3 Other Systems: Reviewed and Negative Patient History - Patient Medical History Hx Anemia: No Hx Asthma: No Hx Chronic Obstructive Pulmonary Disease (COPD): No Hx Cancer: No Hx Cardiac Disorders: No Hx Congestive Heart Failure: No Hx Hypertension: Yes (NOT ON MEDICATION) Hx Hypercholesterolemia: Yes (no med) Hx Pacemaker: No HX Cerebrovascular Accident: No Hx Seizures: No Hx Dementia: No Hx Diabetes: Yes (Insulin dependent diabetic) Hx Gastrointestinal Disorders: No Hx Liver Disease: No Hx Genitourinary Disorders: Yes (ancer of prostate) Hx Sexually Transmitted Disorders: No Hx Renal Disease (ESRD): No Hx Thyroid Disease: No Hx Human Immunodeficiency Virus (HIV): No (last 05/31 negative) Hx Hepatitis C: No Hx Depression: No Hx Suicide Attempt: No Hx Bipolar Disorder: No Hx Schizophrenia: No Other Medical History: no suicidal,no hoicidal - Patient Surgical History Past Surgical History: Yes Hx Neurologic Surgery: No Hx Cataract Extraction: No Hx Cardiac Surgery: No Hx Lung Surgery: No Hx Breast Surgery: No Hx Breast Biopsy: No Hx Abdominal Surgery: No Hx Appendectomy: Yes (1985) Hx Cholecystectomy: No Hx Genitourinary Surgery: No Hx Section: No Hx Orthopedic Surgery: No Anesthesia Reaction: No - PPD History Previous Implant?: Yes Documented Results: Negative w/proof Implanted On Prior [facility] Admission?: Yes Date: 05/24/18 Results: NEGATIVE PPD to be Administered?: No - Smoking Cessation Smoking history: Current every day smoker Have you smoked in the past 12 months: Yes Aproximately how many cigarettes per day: 20 Hx Chewing Tobacco Use: No Initiated information on smoking cessation: Yes 'Breaking Loose' booklet given: 11/07/18 - Substance & Tx. History Hx Alcohol Use: Yes Hx Substance Use: Yes Substance Use Type: Alcohol, Cocaine Hx Substance Use Treatment: Yes ([facility] 10/04/18 to 10/08/18,rehab 10/08/18 to 09/01) - Substances Abused Alcohol Route: Oral Frequency: Daily Amount used: 1 PINT OF VODKA Age of first use: 8 Date of Last Use: 11/06/18 PCP Route: Smoking Frequency: 1-2 times per week Amount used: $20 Age of first use: 16 Date of Last Use: 11/06/18 Cocaine Route: Inhalation Frequency: 3-6 times per week Amount used: $45 Age of first use: 21 Date of Last Use: 11/06/18 Family Disease History - Family Disease History Family Disease History: Diabetes: Mother, Other: Father (alcohol,) Admission Physical Exam [facility] - Vital Signs Vital Signs: Vital Signs - 24 hr 11/07/18 12:10 Temperature 97.6 F Pulse Rate 96 H Respiratory 20 Rate Blood Pressure 119/74 - Physical General Appearance: Yes: Moderate Distress, Tremorous, Irritable, Sweating, Anxious HEENTM: Yes: Normal ENT Inspection, AMY, Pharynx Normal (infection in the right ear uusing antibiotic ear drop) Respiratory: Yes: Lungs Clear, Normal Breath Sounds, No Respiratory Distress Neck: Yes: Within Normal Limits, Supple, Trachea in good position Breast: Yes: Within Normal Limits Cardiology: Yes: Within Normal Limits, Regular Rhythm, Regular Rate, S1, S2 Abdominal: Yes: Within Normal Limits, Normal Bowel Sounds, Non Tender, Flat, Soft Genitourinary: Yes: Other (history of cancer of prostate) Back: Yes: Muscle Spasm Musculoskeletal: Yes: full range of Motion, Back pain, Muscle Pain Extremities: Yes: Tremors Neurological: Yes: fingerer II-XII NML intact, Fully Oriented, Alert, Motor Strength 5/5 Integumentary: Yes: Dry Lymphatic: Yes: Within Normal Limits - Diagnostic (1) Alcohol dependence with uncomplicated withdrawal Current Visit: No Status: Acute (2) Arthritis of right knee Current Visit: No Status: Acute (3) Cocaine dependence Current Visit: No Status: Acute (4) Nicotine dependence Current Visit: No Status: Acute Qualifiers: Nicotine product type: cigarettes Substance use status: in withdrawal Qualified Code(s): F17.213 - Nicotine dependence, cigarettes, with withdrawal (5) PCP dependence Current Visit: No Status: Acute (6) Prostatic cancer Current Visit: No Status: Acute (7) Chronic low back pain Current Visit: No Status: Chronic Qualifiers: Back pain laterality: unspecified (8) IDDM (insulin dependent diabetes mellitus) Current Visit: No Status: Chronic (9) Peripheral neuropathy Current Visit: No Status: Chronic Qualifiers: Peripheral neuropathy type: polyneuropathy, unspecified Qualified Code(s): G62.9 - Polyneuropathy, unspecified (10) History of appendectomy Current Visit: No Status: Suspected Cleared for Admission [facility] - Detox or Rehab [facility] Level of Care: Medically Managed Detox Regimen/Protocol: Librium [facility] Breath Alcohol Content Breath Alcohol Content: 0 Urine Drug Screen - Results Drug Screen Negative: No Urine Drug Screen Results: NAHOMY-Cocaine, BZO-Benzodiazepines Inpatient Rehab Admission - Rehab Decision to Admit Inpatient rehab admission?: No
[2018-11-07] MEDS ORDERED: MAG HYDROX/AL HYDROX/SIMETH 30 ML UNIT-DOSE CUP PO PRN (13:56)
[2018-11-07] MEDS ORDERED: ACETAMINOPHEN 325 MG TABLET (FP) PO PRN ×2 (13:56)
[2018-11-07] MEDS ORDERED: IBUPROFEN 400 MG TABLET (FP) PO PRN (13:56)
[2018-11-07] MEDS ORDERED: hydrOXYzine PAMOATE 25 MG CAPSULE (FP) PO PRN (13:56)
[2018-11-07] MEDS ORDERED: MAGNESIUM HYDROX 2400MG/30ML ORAL SUSPENSION 30 ML CUP PO PRN (13:56)
[2018-11-07] MEDS ORDERED: BISMUTH SUBSALICYLATE 262 MG/15 ML BTL PO PRN (13:56)
[2018-11-07] MEDS ORDERED: METHOCARBAMOL 500 MG TABLET PO PRN (13:56)
[2018-11-07] MEDS ORDERED: MAGNESIUM CITRATE 300 ML BOTTLE PO PRN (13:56)
[2018-11-07] MEDS ORDERED: chlordiazePOXIDE HCL 25 MG CAPSULE PO PRN (13:56)
[2018-11-07] MEDS ORDERED: MENTHOL/PHENOL 1 EACH UD MM PRN (13:56)
[2018-11-07] MEDS ORDERED: INSULIN (NOVOLOG) ASPART 100 UNITS/ML 10ML VIAL ONE ×2 (16:47→22:08)
[2018-11-07] MEDS: chlordiazePOXIDE HCL 25 MG CAPSULE PO SCH ×2 (16:51→23:02)
[2018-11-07] MEDS: INSULIN (NOVOLOG) ASPART 100 UNITS/ML 10ML VIAL SQ SCH ×2 (16:51→22:36)
[2018-11-07] MEDS: CALCIUM 500MG/VIT-D 200 UNITS COMBO TABLET (FP) PO SCH (22:31)
[2018-11-07] MEDS: THIAMINE HCL 100 MG TABLET (FP) PO SCH (22:31)
[2018-11-07] MEDS: ATORVASTATIN CA 40 MG TABLET (FP) PO SCH (22:32)
[2018-11-07] MEDS: CLOTRIMAZOLE 1% CREAM 15 GM TUBE TP SCH (22:33)
[2018-11-07] MEDS: FLUOCINONIDE 0.05% CREAM (15 GM TUBE) TP SCH (22:33)
[2018-11-07] MEDS: INSULIN (LEVEMIR) 100 UNITS/ML UNITS SQ SCH (22:36)
[2018-11-08] MEDS: chlordiazePOXIDE HCL 25 MG CAPSULE PO SCH ×4 (05:46→22:24)
[2018-11-08] MEDS ORDERED: INSULIN (NOVOLOG) ASPART 100 UNITS/ML 10ML VIAL ONE ×4 (08:14→22:35)
[2018-11-08] MEDS: INSULIN (NOVOLOG) ASPART 100 UNITS/ML 10ML VIAL SQ SCH ×4 (08:17→22:26)
[2018-11-08] MEDS: PRENATAL VITAMINS W/ FOLIC ACID TABLET (FP) PO SCH (10:09)
[2018-11-08] MEDS: ASPIRIN 81 MG CHEWABLE TABLETS PO SCH (10:09)
[2018-11-08] MEDS: FLUOCINONIDE 0.05% CREAM (15 GM TUBE) TP SCH ×2 (10:10→22:25)
[2018-11-08] MEDS: CLOTRIMAZOLE 1% CREAM 15 GM TUBE TP SCH ×2 (10:11→22:25)
[2018-11-08] MEDS: CALCIUM 500MG/VIT-D 200 UNITS COMBO TABLET (FP) PO SCH ×2 (10:30→23:41)
[2018-11-08 10:56] LABS: HEMATOCRIT 46.3 % (35.4-49); HEMOGLOBIN 15.5 GM/dL (11.7-16.9); MCHC 33.5 g/dl (32.0-35.9); MEAN CELL VOLUME 95.4 fl (80-96); MEAN PLT VOLUME 9.9 fl (7.5-11.1); PLATELET COUNT 282 K/MM3 (134-434); RBC 4.85 M/mm3 (4.00-5.60); RDW 14.7 % (11.9-15.9); WHITE BLOOD COUNT 9.2 K/mm3 (4.0-10.0)
[2018-11-08 11:02] LABS: ALK PHOS 99 U/L (45-117); ANION GAP 9 MMOL/L (8-16); BILIRUBIN,TOTAL 0.7 mg/dL (0.2-1); BLOOD UREA NITROGEN 21 mg/dL (7-18); CALCIUM 9.9 mg/dL (8.5-10.1); CHLORIDE 99 mmol/L (98-107); CO2 26 mmol/L (21-32); CREATININE 1.8 mg/dL (0.55-1.3); POTASSIUM 4.5 mmol/L (3.5-5.1); SGOT/AST 21 U/L (15-37); SGPT/ALT 22 U/L (13-61); SODIUM 134 mmol/L (136-145); TOT PROT 7.8 g/dl (6.4-8.2)
[2018-11-08 11:11] LABS: GLUCOSE,RANDOM 470 mg/dL (74-106)
[2018-11-08] MEDS: NEOMYCIN/POLYMYXN/HC OTIC SUSPENSION 10 ML BOTTLE AD SCH ×3 (12:00→23:07)
[2018-11-08] MEDS: GABAPENTIN 300 MG CAPSULE (FP) PO SCH ×2 (13:34→22:23)
[2018-11-08] MEDS: THIAMINE HCL 100 MG TABLET (FP) PO SCH (22:23)
[2018-11-08] MEDS: ATORVASTATIN CA 40 MG TABLET (FP) PO SCH (22:23)
[2018-11-08] MEDS: MELATONIN 5 MG TABLETS PO PRN (22:43)
[2018-11-08] MEDS: INSULIN (LEVEMIR) 100 UNITS/ML UNITS SQ SCH (22:43)
[2018-11-09] MEDS: chlordiazePOXIDE HCL 25 MG CAPSULE PO SCH ×2 (05:59→10:55)
[2018-11-09] MEDS: GABAPENTIN 300 MG CAPSULE (FP) PO SCH ×3 (05:59→22:11)
[2018-11-09] MEDS: NEOMYCIN/POLYMYXN/HC OTIC SUSPENSION 10 ML BOTTLE AD SCH ×3 (05:59→17:38)
[2018-11-09] MEDS ORDERED: INSULIN (NOVOLOG) ASPART 100 UNITS/ML 10ML VIAL SQ ONE (07:26)
--- NOTE | 2018-11-09 07:31 | PN ---
[facility] Progress Note Note: is 488,nonolog 15 unit sq,bgm monitoring with insulin coverage
[2018-11-09] MEDS: INSULIN (NOVOLOG) ASPART 100 UNITS/ML 10ML VIAL SQ SCH ×4 (07:41→23:00)
--- NOTE | 2018-11-09 09:13 | PN ---
[facility] CIWA - CIWA Score Nausea/Vomitin Muscle Tremors: 2 Anxiety: 2 Agitation: 2 Paroxysmal Sweats: 1-Minimal Palms Moist Orientation: 0-Oriented Tacttile Disturbances: 1-Very Mild Itch/Numbness Auditory Disturbances: 1-Very Mild Visual Disturbances: 0-None Headache: 2-Mild CIWA-Ar Total Score: 13 [facility] Progress Note (SOAP) Subjective: alert,irritable,anxious,interrupted sleep,tremor Objective: 11/09/18 09:09 Vital Signs Temperature 98.1 F 11/09/18 06:00 Pulse Rate 77 11/09/18 06:00 Respiratory Rate 18 11/09/18 06:30 Blood Pressure 102/67 11/09/18 06:00 O2 Sat by Pulse Oximetry (%) uncontrolled dm Assessment: 11/09/18 09:12 withdrawal symptom Plan: continue detox,bgm monitoring with iinsulin coverage,appliquer zigzag consultation
--- NOTE | 2018-11-09 09:21 | PN ---
S CIWA - CIWA Score Nausea/Vomitin Muscle Tremors: 2 Anxiety: 2 Agitation: 2 Paroxysmal Sweats: 1-Minimal Palms Moist Orientation: 0-Oriented Tacttile Disturbances: 1-Very Mild Itch/Numbness Auditory Disturbances: 1-Very Mild Visual Disturbances: 0-None Headache: 2-Mild CIWA-Ar Total Score: 13 [facility] Progress Note (SOAP) Subjective: alert,irritable,anxious,tremor,interrupted sleep,pain in the body Objective: 11/09/18 09:19 t98.5,p90,r18,bp 128/66 11/09/18 09:20 Laboratory Last Values WBC 9.2 K/mm3 (4.0-10.0) 11/08/18 06:00 RBC 4.85 M/mm3 (4.00-5.60) 11/08/18 06:00 Hgb 15.5 GM/dL (11.7-16.9) 11/08/18 06:00 Hct 46.3 % (35.4-49) D 11/08/18 06:00 MCV 95.4 fl (80-96) 11/08/18 06:00 MCH 32.0 pg (25.7-33.7) 11/08/18 06:00 MCHC 33.5 g/dl (32.0-35.9) 11/08/18 06:00 RDW 14.7 % (11.9-15.9) 11/08/18 06:00 Plt Count 282 K/MM3 (134-434) 11/08/18 06:00 MPV 9.9 fl (7.5-11.1) 11/08/18 06:00 Sodium 134 mmol/L (136-145) L 11/08/18 06:00 Potassium 4.5 mmol/L (3.5-5.1) 11/08/18 06:00 Chloride 99 mmol/L (98-107) 11/08/18 06:00 Carbon Dioxide 26 mmol/L (21-32) 11/08/18 06:00 Anion Gap 9 MMOL/L (8-16) 11/08/18 06:00 BUN 21 mg/dL (7-18) H 11/08/18 06:00 Creatinine 1.8 mg/dL (0.55-1.3) H 11/08/18 06:00 Creat Clearance w eGFR 39.52 (>60) 11/08/18 06:00 POC Glucometer 488 UNITS (80-120) 11/09/18 07:14 Random Glucose 470 mg/dL (74-106) H* 11/08/18 06:00 Calcium 9.9 mg/dL (8.5-10.1) 11/08/18 06:00 Total Bilirubin 0.7 mg/dL (0.2-1) 11/08/18 06:00 AST 21 U/L (15-37) 11/08/18 06:00 ALT 22 U/L (13-61) 11/08/18 06:00 Alkaline Phosphatase 99 U/L (45-117) 11/08/18 06:00 Total Protein 7.8 g/dl (6.4-8.2) 11/08/18 06:00 Albumin 4.0 g/dl (3.4-5.0) 11/08/18 06:00 RPR Titer Nonreactive (NONREACTIVE) 11/08/18 06:00 Assessment: 11/09/18 09:20 withdrawal symptom Plan: continue detox,bgm monitoring with insulin coverage,diet modification
[2018-11-09] MEDS: ASPIRIN 81 MG CHEWABLE TABLETS PO SCH (10:54)
[2018-11-09] MEDS: PRENATAL VITAMINS W/ FOLIC ACID TABLET (FP) PO SCH (10:54)
[2018-11-09] MEDS: CALCIUM 500MG/VIT-D 200 UNITS COMBO TABLET (FP) PO SCH ×2 (10:55→22:11)
[2018-11-09] MEDS: FLUOCINONIDE 0.05% CREAM (15 GM TUBE) TP SCH ×2 (10:55→22:12)
[2018-11-09] MEDS: CLOTRIMAZOLE 1% CREAM 15 GM TUBE TP SCH ×2 (10:56→22:12)
[2018-11-09] MEDS: NICOTINE 21 MG/24 HOURS TOPICAL PATCH TD SCH (10:58)
[2018-11-09] MEDS: NICOTINE POLACRILEX 2 MG GUM BUC PRN (10:58)
[2018-11-09] MEDS ORDERED: INSULIN (NOVOLOG) ASPART 100 UNITS/ML 10ML VIAL ONE ×3 (12:03→22:16)
[2018-11-09] MEDS ORDERED: chlordiazePOXIDE HCL 10 MG CAPSULE PO PRN (17:00)
[2018-11-09] MEDS: chlordiazePOXIDE HCL 10 MG CAPSULE PO SCH ×2 (17:21→22:11)
[2018-11-09] MEDS: MELATONIN 5 MG TABLETS PO PRN (22:11)
[2018-11-09] MEDS: THIAMINE HCL 100 MG TABLET (FP) PO SCH (22:11)
[2018-11-09] MEDS: ATORVASTATIN CA 40 MG TABLET (FP) PO SCH (22:11)
[2018-11-09] MEDS: INSULIN (LEVEMIR) 100 UNITS/ML UNITS SQ SCH (22:59)
[2018-11-10] MEDS: NEOMYCIN/POLYMYXN/HC OTIC SUSPENSION 10 ML BOTTLE AD SCH ×6 (06:35→23:31)
[2018-11-10] MEDS: chlordiazePOXIDE HCL 10 MG CAPSULE PO SCH ×3 (06:39→17:55)
[2018-11-10] MEDS: GABAPENTIN 300 MG CAPSULE (FP) PO SCH ×3 (06:39→22:22)
[2018-11-10] MEDS: INSULIN (NOVOLOG) ASPART 100 UNITS/ML 10ML VIAL SQ SCH ×4 (08:00→22:23)
[2018-11-10] MEDS ORDERED: INSULIN (NOVOLOG) ASPART 100 UNITS/ML 10ML VIAL ONE ×4 (08:02→21:59)
[2018-11-10] MEDS: ASPIRIN 81 MG CHEWABLE TABLETS PO SCH (10:10)
[2018-11-10] MEDS: PRENATAL VITAMINS W/ FOLIC ACID TABLET (FP) PO SCH (10:10)
[2018-11-10] MEDS: NICOTINE 21 MG/24 HOURS TOPICAL PATCH TD SCH (10:11)
[2018-11-10] MEDS: FLUOCINONIDE 0.05% CREAM (15 GM TUBE) TP SCH ×2 (10:11→22:23)
[2018-11-10] MEDS: CALCIUM 500MG/VIT-D 200 UNITS COMBO TABLET (FP) PO SCH ×2 (10:11→22:22)
[2018-11-10] MEDS: CLOTRIMAZOLE 1% CREAM 15 GM TUBE TP SCH ×2 (10:11→22:23)
--- NOTE | 2018-11-10 10:39 | PN ---
[facility] Progress Note (SOAP) Subjective: Mild shakes and sweats, abdominal cramps and right shoulder chronic pain Objective: 11/10/18 10:37 Vital Signs - 8 hr 11/10/18 11/10/18 11/10/18 03:30 08:18 09:33 Temperature 97.7 F 97.3 F L Pulse Rate 84 94 H Respiratory 18 18 18 Rate Blood Pressure 118/80 106/87 Laboratory Last Values WBC 9.2 K/mm3 (4.0-10.0) 11/08/18 06:00 RBC 4.85 M/mm3 (4.00-5.60) 11/08/18 06:00 Hgb 15.5 GM/dL (11.7-16.9) 11/08/18 06:00 Hct 46.3 % (35.4-49) D 11/08/18 06:00 MCV 95.4 fl (80-96) 11/08/18 06:00 MCH 32.0 pg (25.7-33.7) 11/08/18 06:00 MCHC 33.5 g/dl (32.0-35.9) 11/08/18 06:00 RDW 14.7 % (11.9-15.9) 11/08/18 06:00 Plt Count 282 K/MM3 (134-434) 11/08/18 06:00 MPV 9.9 fl (7.5-11.1) 11/08/18 06:00 Sodium 134 mmol/L (136-145) L 11/08/18 06:00 Potassium 4.5 mmol/L (3.5-5.1) 11/08/18 06:00 Chloride 99 mmol/L (98-107) 11/08/18 06:00 Carbon Dioxide 26 mmol/L (21-32) 11/08/18 06:00 Anion Gap 9 MMOL/L (8-16) 11/08/18 06:00 BUN 21 mg/dL (7-18) H 11/08/18 06:00 Creatinine 1.8 mg/dL (0.55-1.3) H 11/08/18 06:00 Creat Clearance w eGFR 39.52 (>60) 11/08/18 06:00 POC Glucometer 330 UNITS (80-120) 11/10/18 06:42 Random Glucose 470 mg/dL (74-106) H* 11/08/18 06:00 Calcium 9.9 mg/dL (8.5-10.1) 11/08/18 06:00 Total Bilirubin 0.7 mg/dL (0.2-1) 11/08/18 06:00 AST 21 U/L (15-37) 11/08/18 06:00 ALT 22 U/L (13-61) 11/08/18 06:00 Alkaline Phosphatase 99 U/L (45-117) 11/08/18 06:00 Total Protein 7.8 g/dl (6.4-8.2) 11/08/18 06:00 Albumin 4.0 g/dl (3.4-5.0) 11/08/18 06:00 RPR Titer Nonreactive (NONREACTIVE) 11/08/18 06:00 Labs noted Assessment: 11/10/18 10:38 Withdrawal sx Plan: Continue detox
--- NOTE | 2018-11-10 15:22 | PN ---
[facility] Progress Note Note: Patient with elevated BGM not registering on machine, coverage dose given. Patient has been having elevated BGM levels requiring routine coverages. He is currently on 20 units of levemir, he states he takes 55 units. Levemir increased to 25 units. Staff will continue to monitor his levels
--- NOTE | 2018-11-10 16:51 | PN ---
[facility] Progress Note Note: bgm is 588,will give novolog 16 units now,bgm monitoring with insulin coverage
[2018-11-10] MEDS ORDERED: INSULIN (NOVOLOG) ASPART 100 UNITS/ML 10ML VIAL SQ ONE (17:00)
[2018-11-10] MEDS ORDERED: INSULIN (LEVEMIR) 100 UNITS/ML UNITS SQ SCH (22:00)
[2018-11-10] MEDS: THIAMINE HCL 100 MG TABLET (FP) PO SCH (22:21)
[2018-11-10] MEDS: ATORVASTATIN CA 40 MG TABLET (FP) PO SCH (22:22)
[2018-11-11] MEDS: chlordiazePOXIDE HCL 10 MG CAPSULE PO SCH (06:35)
[2018-11-11] MEDS: GABAPENTIN 300 MG CAPSULE (FP) PO SCH (06:36)
[2018-11-11] MEDS: NEOMYCIN/POLYMYXN/HC OTIC SUSPENSION 10 ML BOTTLE AD SCH (06:36)
[2018-11-11] MEDS: INSULIN (NOVOLOG) ASPART 100 UNITS/ML 10ML VIAL SQ SCH (07:36)
[2018-11-11] MEDS ORDERED: INSULIN (NOVOLOG) ASPART 100 UNITS/ML 10ML VIAL ONE (07:37)
[2018-11-11] MEDS: NICOTINE POLACRILEX 2 MG GUM BUC PRN (07:38)
--- NOTE | 2018-11-11 08:58 | DS ---
[facility] Detox Discharge Summary Admission Date: 11/07/18 Discharge Date: 11/11/18 - History Present History: Alcohol Dependence - Physical Exam Results Vital Signs: Vital Signs Temperature 97.5 F L 11/11/18 07:12 Pulse Rate 90 11/11/18 07:12 Respiratory Rate 18 11/11/18 07:12 Blood Pressure 114/74 11/11/18 07:12 O2 Sat by Pulse Oximetry (%) - Treatment Hospital Course: Detox Protocol Followed, Detoxed Safely, Responded well, Discharged Condition Good, Rehab Referral Accepted - Medication Discharge Medications: Ambulatory Orders Gabapentin 800 mg PO TID 12/11/17 Calcium Carbonate/Vitamin D3 [Calcium 500-Vit D3 200 Caplet] 1 each PO BID 05/22 Clotrimazole [Jock Itch Relief] 15 gm TP BID 05/22/18 Ergocalciferol [Vitamin D2] 50,000 unit PO WEEKLY 05/22/18 Fluocinonide 0.05% Cream [Lidex 0.05% Cream -] 1 applic TP BID #1 tube 05/25/18 Leuprolide Acetate [Lupron Depot 7.5MG -] 7.5 mg IM MONTHLY 10/04/18 Insulin Glargine,Hum.rec.anlog [Basaglar Kwikpen U-100] 55 unit SQ BID 10/08/18 Insulin Lispro [Admelog Solostar] 35 unit SQ TID 10/08/18 Aspirin [ASA -] 81 mg PO DAILY #30 tab.chew 10/12/18 Atorvastatin Ca [Lipitor] 40 mg PO HS #30 tablet 10/12/18 Diphenhydramine [Benadryl -] 100 mg PO HS 11/07/18
--- NOTE | 2018-11-11 09:04 | DS ---
[facility] Detox Discharge Summary Admission Date: 11/07/18 Discharge Date: 11/11/18 - History Present History: Alcohol Dependence - Physical Exam Results Vital Signs: Vital Signs Temperature 97.5 F L 11/11/18 07:12 Pulse Rate 90 11/11/18 07:12 Respiratory Rate 18 11/11/18 07:12 Blood Pressure 114/74 11/11/18 07:12 O2 Sat by Pulse Oximetry (%) - Treatment Hospital Course: Detox Protocol Followed, Detoxed Safely, Responded well, Discharged Condition Good, Rehab Referral Accepted - Medication Discharge Medications: Ambulatory Orders Gabapentin 800 mg PO TID 12/11/17 Calcium Carbonate/Vitamin D3 [Calcium 500-Vit D3 200 Caplet] 1 each PO BID 05/22 Clotrimazole [Jock Itch Relief] 15 gm TP BID 05/22/18 Ergocalciferol [Vitamin D2] 50,000 unit PO WEEKLY 05/22/18 Fluocinonide 0.05% Cream [Lidex 0.05% Cream -] 1 applic TP BID #1 tube 05/25/18 Leuprolide Acetate [Lupron Depot 7.5MG -] 7.5 mg IM MONTHLY 10/04/18 Insulin Glargine,Hum.rec.anlog [Basaglar Kwikpen U-100] 55 unit SQ BID 10/08/18 Insulin Lispro [Admelog Solostar] 35 unit SQ TID 10/08/18 Aspirin [ASA -] 81 mg PO DAILY #30 tab.chew 10/12/18 Atorvastatin Ca [Lipitor] 40 mg PO HS #30 tablet 10/12/18 Diphenhydramine [Benadryl -] 100 mg PO HS 11/07/18 - Diagnosis (1) Alcohol dependence with uncomplicated withdrawal Current Visit: Yes Status: Chronic (2) Arthritis of right knee Current Visit: No Status: Acute (3) Cocaine dependence, uncomplicated Current Visit: No Status: Acute (4) History of appendectomy Current Visit: No Status: Acute (5) IDDM (insulin dependent diabetes mellitus) Current Visit: Yes Status: Chronic (6) Insomnia Current Visit: No Status: Acute (7) Knee pain, acute Current Visit: No Status: Acute Qualifiers: Laterality: left Qualified Code(s): M25.562 - Pain in left knee (8) Nicotine dependence Current Visit: Yes Status: Chronic Qualifiers: Nicotine product type: cigarettes Substance use status: uncomplicated Qualified Code(s): F17.210 - Nicotine dependence, cigarettes, uncomplicated (9) Phencyclidine dependence Current Visit: Yes Status: Chronic (10) Prostatic cancer Current Visit: No Status: Acute (11) Shoulder pain, left Current Visit: No Status: Chronic Qualifiers: Chronicity: chronic Qualified Code(s): M25.512 - Pain in left shoulder; G89.29 - Other chronic pain (12) Substance-induced sleep disorder Current Visit: No Status: Acute (13) Chronic low back pain Current Visit: No Status: Chronic Qualifiers: Back pain laterality: unspecified (14) Essential hypertension Current Visit: Yes Status: Chronic (15) HLD (hyperlipidemia) Current Visit: Yes Status: Chronic Qualifiers: Hyperlipidemia type: unspecified Qualified Code(s): E78.5 - Hyperlipidemia , unspecified (16) IDDM (insulin dependent diabetes mellitus) Current Visit: No Status: Chronic - AMA Did Patient Leave Against Medical Advice: No (referred to [facility] rehab)
[2018-11-11 09:50] VITALS: BP 101/62; PULSE 100; TEMP 97.7
[2018-11-11] MEDS: ASPIRIN 81 MG CHEWABLE TABLETS PO SCH (09:57)
[2018-11-11] MEDS: PRENATAL VITAMINS W/ FOLIC ACID TABLET (FP) PO SCH (09:57)
[2018-11-11] MEDS: CALCIUM 500MG/VIT-D 200 UNITS COMBO TABLET (FP) PO SCH (09:58)
[2018-11-11] MEDS: FLUOCINONIDE 0.05% CREAM (15 GM TUBE) TP SCH (10:00)
[2018-11-11] MEDS: NICOTINE 21 MG/24 HOURS TOPICAL PATCH TD SCH (10:00)
[2018-11-11] MEDS: CLOTRIMAZOLE 1% CREAM 15 GM TUBE TP SCH (10:14)
[2018-11-12] MEDS ORDERED: ERGOCALCIFEROL (VITAMIN D2) 50,000 UNIT CAPSULE (FP) PO SCH (10:00)
== END 2018-11-11 10:35 | disposition home or self-care (01) | DRG 774 ==
LOC: YASAS 11:49 → Y6N 13:58
PROVIDERS: ADMIT Surgery; ATTEND Surgery
PROC: HZ2ZZZZ Detoxification Services for Substance Abuse Treatment (ICD-10-PCS; principal; 2018-11-07)
DX: F10.230 Alcohol dependence with withdrawal, uncomplicated (principal); F14.20 Cocaine dependence, uncomplicated; F16.20 Hallucinogen dependence, uncomplicated; F17.210 Nicotine dependence, cigarettes, uncomplicated; F19.282 Other psychoactive substance dependence with psychoactive substance-induced sleep disorder; G47.00 Insomnia, unspecified; I10 Essential (primary) hypertension; E78.5 Hyperlipidemia, unspecified; E11.9 Type 2 diabetes mellitus without complications; Z79.4 Long term (current) use of insulin; M17.11 Unilateral primary osteoarthritis, right knee; M25.562 Pain in left knee; M25.512 Pain in left shoulder; G89.29 Other chronic pain; Z90.49 Acquired absence of other specified parts of digestive tract; Z88.0 Allergy status to penicillin
CPT/HCPCS: 36415; 80053; 82962; 85027; 86593

== ENCOUNTER 2018-12-18 10:55 | Inpatient (IN) | payer OTHER ==
[2018-12-18 12:17] VITALS: BMI 27.8
--- NOTE | 2018-12-18 13:45 | HP ---
CIWA Score Nausea/Vomitin-No Nausea/No Vomiting Muscle Tremors: None Anxiety: 1-Mildly Anxious Agitation: 1-Slight > Activity Paroxysmal Sweats: No Perspiration Orientation: 0-Oriented Tacttile Disturbances: 0-None Auditory Disturbances: 0-None Visual Disturbances: 0-None Headache: 0-None Present CIWA-Ar Total Score: 2 - Admission Criteria OASAS Guidelines: Admission for Medically Managed Detox: Requires at least one of the followin. CIWA greater than 12 2. Seizures within the past 24 hours 3. Delirium tremens within the past 24 hours 4. Hallucinations within the past 24 hours 5. Acute intervention needed for co occurring medical disorder 6. Acute intervention needed for co occurring psychiatric disorder 7. Severe withdrawal that cannot be handled at a lower level of care (continued vomiting, continued diarrhea, abnormal vital signs) requiring intravenous medication and/or fluids 8. Admission ROS [facility] Chief Complaint: cocaine rehab 53 yo with diabetes, prostate cancer, neuropathy, left detox on 11/11/18. Pt is getting Klonopin 4mg/day. Here for rehab alcohol- 1 pint/day vodka cocaine- $40/day percocet- from PCP Utox: cocaine DUR: Klonopin 4mg/day, received 12/07/18, endocet 10mg #21 11/22/18 Allergies/Adverse Reactions: Allergies Allergy/AdvReac Type Severity Reaction Status Date / Time Penicillins Allergy Severe Rash Verified 12/18/18 12:02 pork derived (porcine) Allergy Severe Hives Verified 12/18/18 12:02 - Ebola screening Have you traveled outside of the country in the last 21 days: No Have you had contact with anyone from an Ebola affected area: No Do you have a fever: No Patient History - Patient Medical History Hx Anemia: No Hx Asthma: No Hx Chronic Obstructive Pulmonary Disease (COPD): No Hx Cancer: No Hx Cardiac Disorders: No Hx Congestive Heart Failure: No Hx Hypertension: Yes (NOT ON MEDICATION) Hx Hypercholesterolemia: Yes (no med) Hx Pacemaker: No HX Cerebrovascular Accident: No Hx Seizures: No Hx Dementia: No Hx Diabetes: Yes (Insulin dependent diabetic) Hx Gastrointestinal Disorders: No Hx Liver Disease: No Hx Genitourinary Disorders: Yes (ancer of prostate) Hx Sexually Transmitted Disorders: No Hx Renal Disease (ESRD): No Hx Thyroid Disease: No Hx Human Immunodeficiency Virus (HIV): No (last 05/31 negative) Hx Hepatitis C: No Hx Depression: No Hx Suicide Attempt: No Hx Bipolar Disorder: No Hx Schizophrenia: No - Patient Surgical History Past Surgical History: Yes Hx Neurologic Surgery: No Hx Cataract Extraction: No Hx Cardiac Surgery: No Hx Lung Surgery: No Hx Breast Surgery: No Hx Breast Biopsy: No Hx Abdominal Surgery: No Hx Appendectomy: Yes (1985) Hx Cholecystectomy: No Hx Genitourinary Surgery: No Hx Section: No Hx Orthopedic Surgery: No Anesthesia Reaction: No - PPD History Date: 05/24/18 Results: NEGATIVE - Smoking Cessation Smoking history: Current every day smoker Have you smoked in the past 12 months: Yes Aproximately how many cigarettes per day: 20 Hx Chewing Tobacco Use: No Initiated information on smoking cessation: Yes 'Breaking Loose' booklet given: 12/18/18 - Substance & Tx. History Hx Alcohol Use: Yes Hx Substance Use: Yes Substance Use Type: Alcohol, Cocaine, Opiates - Substances abused Alcohol Substance route: Oral Frequency: Daily Amount used: 2 pints Age of first use: 8 Date of last use: 12/18/18 Cocaine Substance route: Inhalation Frequency: 1-2 times per week Amount used: 50 dollars Age of first use: 16 Date of last use: 12/18/18 Crack Substance route: Smoking Frequency: Daily Amount used: 25 dolllars Age of first use: 24 Date of last use: 12/18/18 Other Other (specify): Percocet Substance route: Oral Frequency: Daily Amount used: 3 pills Age of first use: 34 Date of last use: 12/18/18 Family Disease History - Family Disease History Family Disease History: Diabetes: Mother, Other: Father (alcohol,) Admission Physical Exam [facility] - Vital Signs Vital Signs: Vital Signs - 24 hr 12/18/18 12/18/18 12:01 12:40 Temperature 98.6 F 98.6 F Pulse Rate 99 H 99 H Respiratory 18 18 Rate Blood Pressure 98/63 98/63 - Physical General Appearance: Yes: Within Normal Limits, No Apparent Distress, Nourished HEENTM: Yes: Within Normal Limits, EOMI, Hearing grossly Normal, Normal Voice, AMY Respiratory: Yes: Within Normal Limits, Lungs Clear Neck: Yes: Within Normal Limits Cardiology: Yes: Within Normal Limits, Regular Rate, S1, S2 Abdominal: Yes: Within Normal Limits, Normal Bowel Sounds, Protuberent Back: Yes: Within Normal Limits Musculoskeletal: Yes: Within Normal Limits Extremities: Yes: Within Normal Limits, Normal Inspection Neurological: Yes: Within Normal Limits, band cutter II-XII NML intact, Fully Oriented, Alert, Motor Strength 5/5, Normal Mood/Affect Integumentary: Yes: Within Normal Limits, Normal Color Lymphatic: Yes: Within Normal Limits - Diagnostic (1) Cocaine dependence, uncomplicated Current Visit: No Status: Acute (2) Knee pain, acute Current Visit: No Status: Acute Qualifiers: Laterality: left Qualified Code(s): M25.562 - Pain in left knee (3) HLD (hyperlipidemia) Current Visit: No Status: Chronic Qualifiers: Hyperlipidemia type: unspecified Qualified Code(s): E78.5 - Hyperlipidemia , unspecified (4) IDDM (insulin dependent diabetes mellitus) Current Visit: No Status: Chronic (5) Nicotine dependence Current Visit: No Status: Chronic Qualifiers: Nicotine product type: cigarettes Substance use status: uncomplicated Qualified Code(s): F17.210 - Nicotine dependence, cigarettes, uncomplicated Breathalyzer - Breathalyzer Breathalyzer: 0 Urine Drug Screen - Test Device Lot number: [id number] Expiration date: 07/13/20 - Control Is test valid?: Yes - Results Drug screen NEGATIVE: No Urine drug screen results: NAHOMY-Cocaine Inpatient Rehab Admission - Rehab Decision to Admit Inpatient rehab admission?: Yes - Initial Determination Are CD services needed?: Yes Free of communicable disease: Yes Not in need of hospitalization: Yes - Rehab Admission Criteria Previous failed treatment: Yes Poor recovery environment: Yes Comorbidities: Yes Lacks judgement: Yes Patient is meeting Inpatient Rehab admission criteria:: Yes (here several times for alcohol detox)
[2018-12-18] MEDS ORDERED: NICOTINE POLACRILEX 4 MG GUM BUC PRN (13:46)
[2018-12-18] MEDS ORDERED: hydrOXYzine PAMOATE 25 MG CAPSULE (FP) PO PRN (13:46)
[2018-12-18] MEDS ORDERED: P-EPHED 60MG/TRIPROLIDI 2.5MG TABLET PO PRN (13:46)
[2018-12-18] MEDS ORDERED: IBUPROFEN 400 MG TABLET (FP) PO PRN (13:46)
[2018-12-18] MEDS ORDERED: MAG HYDROX/AL HYDROX/SIMETH 30 ML UNIT-DOSE CUP PO PRN (13:46)
[2018-12-18] MEDS ORDERED: MENTHOL/PHENOL 1 EACH UD MM PRN (13:46)
[2018-12-18] MEDS ORDERED: MAGNESIUM CITRATE 300 ML BOTTLE PO PRN (13:46)
[2018-12-18] MEDS ORDERED: MAGNESIUM HYDROX 2400MG/30ML ORAL SUSPENSION 30 ML CUP PO PRN (13:46)
[2018-12-18] MEDS ORDERED: ACETAMINOPHEN 325 MG TABLET (FP) PO PRN (13:46)
[2018-12-18] MEDS ORDERED: guaiFENesin 200 MG/10 ML 10 ML UNIT-DOSE CUPS PO PRN (13:46)
[2018-12-18] MEDS ORDERED: INSULIN (NOVOLOG) ASPART 100 UNITS/ML 10ML VIAL SQ ONE (14:38)
[2018-12-18] MEDS: GABAPENTIN 400 MG CAPSULE (FP) PO SCH ×2 (15:11→21:29)
[2018-12-18] MEDS: INSULIN SLIDING SCALE (NOVOLOG) 1 VIAL SQ SCH (16:47)
--- NOTE | 2018-12-18 18:42 | PN ---
[facility] Progress Note (SOAP) Subjective: called by nursing staff for this pt for low BP 60/38 , per nursing pt was doing well, active on the unit, then went to the bathroom with all his belongings and upon exiting the bathroom he was staggering and appeared drowsy , was aided to sit in a chair , pt reports he took a shower and felt dizzy afterwards Reports use of ETOH 4 juan pablo / day , latest today 1 can in the van on the ride to this facility , reports tremors if not drinking . Currently pt reports feeling much better " see , I can walk ! " , states he is feeling " fine " , denies any complaints. Denies CP / n/v/ diarrhea . Active Medications Acetaminophen (Tylenol -) 650 mg PO Q4H PRN PRN Reason: FEVER Al Hydroxide/Mg Hydroxide (Mylanta Oral Suspension -) 30 ml PO Q6H PRN PRN Reason: DYSPEPSIA Aspirin (Asa -) 81 mg PO DAILY [facility] Atorvastatin Calcium (Lipitor -) 40 mg PO HS [facility] Calcium Carbonate/Cholecalciferol (Os-Primitivo 500+D -) 1 tab PO BID NOAH Clotrimazole (Lotrimin 1% Cream -) 1 applic TP BID NOAH Eucalyptus/Menthol/Phenol/Sorbitol (Cepastat Lozenge -) 1 each MM Q4H PRN PRN Reason: SORE THROAT Fluocinonide (Lidex 0.05% Cream -) 1 applic TP BID NOAH Gabapentin (Neurontin -) 800 mg PO TID [facility] Last Admin: 12/18/18 15:11 Dose: 800 mg Guaifenesin (Robitussin -) 10 ml PO Q6H PRN PRN Reason: COUGH Hydroxyzine Pamoate (Vistaril -) 25 mg PO Q4H PRN PRN Reason: AGITATION Ibuprofen (Motrin -) 400 mg PO Q6H PRN PRN Reason: Pain level 4-6 Insulin Aspart (Novolog Vial Sliding Scale -) 1 vial SQ TIDAC [facility]; Protocol Last Admin: 12/18/18 16:47 Dose: Not Given Insulin Detemir (Levemir Vial) 25 units SQ HS [facility] Loperamide HCl (Imodium -) 4 mg PO Q6H PRN PRN Reason: DIARRHEA Magnesium Citrate (Citroma -) 300 ml PO Q48H PRN PRN Reason: CONSTIPATION Magnesium Hydroxide (Milk Of Magnesia -) 30 ml PO DAILY PRN PRN Reason: CONSTIPATION Melatonin (Melatonin) 5 mg PO HS PRN PRN Reason: INSOMNIA Nicotine Polacrilex (Nicorette Gum -) 4 mg BUC Q2H PRN PRN Reason: NICOTINE REPLACEMENT RX Multivit/Folic Acid/Iron ( Vitamins (Sjr) -) 1 tab PO DAILY NOAH Pseudoephedrine/Triprolidine (Actifed -) 1 combo PO TID PRN PRN Reason: NASAL CONGESTION Thiamine HCl (Vitamin B1 -) 100 mg PO HS NOAH Objective: wnwd mild distress , appears drowsy , falls asleep at times during interview , awakened by verbal stimuli . Vital Signs - 24 hr 12/18/18 12/18/18 12/18/18 12:01 12:40 15:07 Temperature 98.6 F 98.6 F 97.5 F L Pulse Rate 99 H 99 H 87 Respiratory 18 18 18 Rate Blood Pressure 98/63 98/63 107/70 12/18/18 18:31 Temperature 97.4 F L Pulse Rate 77 Respiratory 18 Rate Blood Pressure 96/68 Assessment: etoh abuse Plan: monitor vital signs closely encouraged po fluids
[2018-12-18 19:31] LABS: HEMATOCRIT 47.5 % (35.4-49); HEMOGLOBIN 15.7 GM/dL (11.7-16.9); MCH 32.4 pg (25.7-33.7); MEAN CELL VOLUME 98.1 fl (80-96); PLATELET COUNT 230 K/MM3 (134-434); RBC 4.84 M/mm3 (4.00-5.60); RDW 14.3 % (11.9-15.9); WHITE BLOOD COUNT 9.1 K/mm3 (4.0-10.0)
[2018-12-18 19:50] LABS: ALBUMIN 3.9 g/dl (3.4-5.0); ALK PHOS 107 U/L (45-117); ANION GAP 11 MMOL/L (8-16); BILIRUBIN,TOTAL 1.2 mg/dL (0.2-1); BLOOD UREA NITROGEN 16 mg/dL (7-18); CALCIUM 9.2 mg/dL (8.5-10.1); CHLORIDE 94 mmol/L (98-107); CO2 25 mmol/L (21-32); CREATININE 2.2 mg/dL (0.55-1.3); POTASSIUM 4.5 mmol/L (3.5-5.1); SGOT/AST 13 U/L (15-37); SGPT/ALT 21 U/L (13-61); SODIUM 130 mmol/L (136-145); TOT PROT 7.5 g/dl (6.4-8.2)
[2018-12-18 20:07] LABS: GLUCOSE,RANDOM 753 mg/dL (74-106)
[2018-12-18 20:25] LABS: URINE APPEARANCE CLEAR; URINE BILIRUBIN NEGATIVE (NEGATIVE); URINE COLOR YELLOW; URINE GLUCOSE (UA) 3+ (NEGATIVE); URINE KETONE NEGATIVE (NEGATIVE); URINE LEUK ESTERASE NEGATIVE (NEGATIVE); URINE NITRITE NEGATIVE (NEGATIVE); URINE PROTEIN 2+ (NEGATIVE); URINE UROBILINOGEN 0.2 mg/dL (0.2-1.0)
[2018-12-18] MEDS: THIAMINE HCL 100 MG TABLET (FP) PO SCH (21:29)
[2018-12-18] MEDS: ATORVASTATIN CA 40 MG TABLET (FP) PO SCH (21:30)
[2018-12-18] MEDS: CALCIUM 500MG/VIT-D 200 UNITS COMBO TABLET (FP) PO SCH (21:30)
[2018-12-18] MEDS: CLOTRIMAZOLE 1% CREAM 15 GM TUBE TP SCH (21:31)
[2018-12-18] MEDS: FLUOCINONIDE 0.05% CREAM (15 GM TUBE) TP SCH (21:31)
[2018-12-18] MEDS: INSULIN (LEVEMIR) 100 UNITS/ML UNITS SQ SCH (21:32)
[2018-12-18] MEDS ORDERED: INSULIN (LEVEMIR) 100 UNITS/ML UNITS SQ SCH ×2 (22:00)
[2018-12-18 22:13] LABS: EPI CELLS 0.2 /HPF (0-5/HPF); URINE BACTERIA 56.7 /hpf (NEGATIVE); URINE CASTS 0.35 /lpf (0-8); URINE RBC 0.8 /hpf (0-4); URINE WBC 0.6 /hpf (0-5)
[2018-12-19] MEDS: GABAPENTIN 400 MG CAPSULE (FP) PO SCH ×3 (06:08→21:22)
[2018-12-19] MEDS ORDERED: INSULIN (NOVOLOG) ASPART 100 UNITS/ML 10ML VIAL ONE ×2 (06:19→11:26)
[2018-12-19] MEDS: INSULIN SLIDING SCALE (NOVOLOG) 1 VIAL SQ SCH ×2 (06:21→11:27)
[2018-12-19] MEDS: CALCIUM 500MG/VIT-D 200 UNITS COMBO TABLET (FP) PO SCH ×2 (10:30→21:22)
[2018-12-19] MEDS: ASPIRIN 81 MG CHEWABLE TABLETS PO SCH (10:30)
[2018-12-19] MEDS: PRENATAL VITAMINS W/ FOLIC ACID TABLET (FP) PO SCH (10:30)
[2018-12-19] MEDS: CLOTRIMAZOLE 1% CREAM 15 GM TUBE TP SCH ×2 (10:32→21:21)
[2018-12-19] MEDS: FLUOCINONIDE 0.05% CREAM (15 GM TUBE) TP SCH ×2 (10:32→21:23)
[2018-12-19] MEDS ORDERED: INSULIN (NOVOLOG) ASPART 100 UNITS/ML 10ML VIAL SQ SCH (16:30)
[2018-12-19] MEDS ORDERED: INSULIN (NOVOLOG) ASPART 100 UNITS/ML 10ML VIAL SQ ONE ×2 (17:15)
[2018-12-19] MEDS: THIAMINE HCL 100 MG TABLET (FP) PO SCH (21:21)
[2018-12-19] MEDS: MELATONIN 5 MG TABLETS PO PRN (21:22)
[2018-12-19] MEDS: ATORVASTATIN CA 40 MG TABLET (FP) PO SCH (21:22)
[2018-12-19] MEDS: LOPERAMIDE HCL 2 MG CAPSULE PO PRN (21:22)
[2018-12-19] MEDS: INSULIN (LEVEMIR) 100 UNITS/ML UNITS SQ SCH (21:23)
[2018-12-20] MEDS: GABAPENTIN 400 MG CAPSULE (FP) PO SCH ×3 (06:20→21:16)
[2018-12-20] MEDS: LOPERAMIDE HCL 2 MG CAPSULE PO PRN ×2 (06:22→14:07)
[2018-12-20] MEDS ORDERED: INSULIN (NOVOLOG) ASPART 100 UNITS/ML 10ML VIAL ONE ×2 (06:30→11:58)
[2018-12-20] MEDS: INSULIN SLIDING SCALE (NOVOLOG) 1 VIAL SQ SCH ×3 (06:47→16:41)
[2018-12-20] MEDS: ASPIRIN 81 MG CHEWABLE TABLETS PO SCH (10:10)
[2018-12-20] MEDS ORDERED: INSULIN (LEVEMIR) 100 UNITS/ML UNITS SQ SCH ×2 (10:12→21:00)
[2018-12-20] MEDS: CALCIUM 500MG/VIT-D 200 UNITS COMBO TABLET (FP) PO SCH ×2 (10:14→21:16)
[2018-12-20] MEDS: PRENATAL VITAMINS W/ FOLIC ACID TABLET (FP) PO SCH (10:14)
[2018-12-20] MEDS: FLUOCINONIDE 0.05% CREAM (15 GM TUBE) TP SCH ×2 (10:20→21:16)
[2018-12-20] MEDS: CLOTRIMAZOLE 1% CREAM 15 GM TUBE TP SCH ×2 (10:20→21:16)
--- NOTE | 2018-12-20 10:20 | PN ---
[facility] Progress Note (SOAP) Subjective: Patient with uncontrolled diabetes. At the present time, his BGM has been between 336 and 469. States that his primary care provider had stopped Metformin and placed him on Humalog 55 units AM and PM, Novolog 35 units before meals, and also a novolog sliding scale-and he cannot remember the coverage. Objective: 12/20/18 10:18 Lab Results WBC 9.1 K/mm3 (4.0-10.0) 12/18/18 14:00 RBC 4.84 M/mm3 (4.00-5.60) 12/18/18 14:00 Hgb 15.7 GM/dL (11.7-16.9) 12/18/18 14:00 Hct 47.5 % (35.4-49) 12/18/18 14:00 MCV 98.1 fl (80-96) H 12/18/18 14:00 MCHC 33.0 g/dl (32.0-35.9) 12/18/18 14:00 RDW 14.3 % (11.9-15.9) 12/18/18 14:00 Plt Count 230 K/MM3 (134-434) 12/18/18 14:00 Sodium 130 mmol/L (136-145) L 12/18/18 14:00 Potassium 4.5 mmol/L (3.5-5.1) 12/18/18 14:00 Chloride 94 mmol/L (98-107) L 12/18/18 14:00 Carbon Dioxide 25 mmol/L (21-32) 12/18/18 14:00 Anion Gap 11 MMOL/L (8-16) 12/18/18 14:00 BUN 16 mg/dL (7-18) 12/18/18 14:00 Creatinine 2.2 mg/dL (0.55-1.3) H 12/18/18 14:00 Random Glucose 753 mg/dL (74-106) H* 12/18/18 14:00 Calcium 9.2 mg/dL (8.5-10.1) 12/18/18 14:00 Vital Signs (72 hours) 12/18/18 12/18/18 12/18/18 10:00 12:01 12:40 Temperature 98.6 F 98.6 F Pulse Rate 86 99 H 99 H Respiratory 18 18 18 Rate Blood Pressure 103/61 98/63 98/63 12/18/18 12/18/18 12/18/18 15:07 18:31 18:58 Temperature 97.5 F L 97.4 F L 97.4 F L Pulse Rate 87 77 77 Respiratory 18 18 18 Rate Blood Pressure 107/70 96/68 96/68 12/18/18 12/19/18 12/19/18 22:30 02:43 03:30 Temperature 97.2 F L Pulse Rate 86 77 Respiratory 18 18 20 Rate Blood Pressure 103/61 113/77 12/19/18 12/19/18 12/20/18 06:40 10:00 00:30 Temperature 97.7 F Pulse Rate 81 83 Respiratory 18 18 18 Rate Blood Pressure 115/76 99/72 12/20/18 12/20/18 03:30 06:54 Temperature 98.2 F Pulse Rate 84 Respiratory 18 18 Rate Blood Pressure 110/73 Assessment: No s/s of hyperglycemia. 12/20/18 10:21 Plan: Insulin coverage changed to 50 units of Levimir AM and PM, 20 units of Novolog before meals. Sliding scale coverage increased and expanded. Will continue to monitor.
[2018-12-20] MEDS: INSULIN (NOVOLOG) ASPART 100 UNITS/ML 10ML VIAL SQ SCH ×2 (11:21→16:42)
[2018-12-20] MEDS: THIAMINE HCL 100 MG TABLET (FP) PO SCH (21:15)
[2018-12-20] MEDS: MELATONIN 5 MG TABLETS PO PRN (21:16)
[2018-12-20] MEDS: ATORVASTATIN CA 40 MG TABLET (FP) PO SCH (21:16)
[2018-12-20] MEDS: INSULIN (LEVEMIR) 100 UNITS/ML UNITS SQ SCH (21:18)
[2018-12-21] MEDS: GABAPENTIN 400 MG CAPSULE (FP) PO SCH (06:26)
[2018-12-21 06:54] VITALS: BP 121/78; PULSE 78; TEMP 98
[2018-12-21] MEDS: INSULIN (LEVEMIR) 100 UNITS/ML UNITS SQ SCH (07:44)
[2018-12-21] MEDS: INSULIN SLIDING SCALE (NOVOLOG) 1 VIAL SQ SCH (07:44)
[2018-12-21] MEDS: INSULIN (NOVOLOG) ASPART 100 UNITS/ML 10ML VIAL SQ SCH (07:45)
[2018-12-21] MEDS ORDERED: PT OWN MED DRAWER 7, Y5N ONE (09:15)
--- NOTE | 2018-12-21 09:44 | PN ---
[facility] Progress Note Note: INFORMED BY RN PATIENT REQUESTED TO SIGN OUT AMA. PATIENT ENCOURAGED BY STAFF TO COMPLETE TREATMENT AND EXPLAINED RISK FACTORS OF RELAPSE WITH SIGNING OUT. PATIENT REFUSED TO STAY AND INFORMED RN HE WILL FOLLOW UP WITH HIS PCP UPON DISCHARGE, ATTEND GROUP MEETINGS AT [facility] AND HAS ALL HIS MEDICATION AT HOME. PATIENT LEFT UNIT PRIOR TO SPEAKING WITH PROVIDER TO DISCUSS REASON FOR WANTING TO SIGN OUT. REPORTED BY RN, PATIENT LEFT UNIT WITH STAFF IN STABLE CONDITION AT APRROXIMATELY 8:10AM. Vital Signs Temperature 98 F 12/21/18 06:54 Pulse Rate 78 12/21/18 06:54 Respiratory Rate 16 12/21/18 06:54 Blood Pressure 121/78 12/21/18 06:54 O2 Sat by Pulse Oximetry (%)
== END 2018-12-21 08:10 | disposition left against medical advice (07) | DRG 770 ==
LOC: YASAS 10:55 → Y3W 14:13
PROVIDERS: ADMIT Neuromusculoskeletal Medicine & OMM; ATTEND Neuromusculoskeletal Medicine & OMM
PROC: HZ42ZZZ Group Counseling for Substance Abuse Treatment, Cognitive-Behavioral (ICD-10-PCS; principal; 2018-12-18)
DX: F10.20 Alcohol dependence, uncomplicated (principal); F14.20 Cocaine dependence, uncomplicated; F17.210 Nicotine dependence, cigarettes, uncomplicated; I10 Essential (primary) hypertension; E78.5 Hyperlipidemia, unspecified; E11.9 Type 2 diabetes mellitus without complications; G62.9 Polyneuropathy, unspecified; M25.562 Pain in left knee; Z85.46 Personal history of malignant neoplasm of prostate
CPT/HCPCS: 36415; 80053; 81003; 82962; 85027; 86593; 87389

== ENCOUNTER 2019-02-26 09:21 | Inpatient (IN) | payer OTHER ==
[2019-02-26 15:11] VITALS: BMI 27.8
--- NOTE | 2019-02-26 16:44 | HP ---
CIWA Score Nausea/Vomitin Muscle Tremors: 1-None Visible, but [place] Anxiety: 3 Agitation: 3 Paroxysmal Sweats: 2 Orientation: 0-Oriented Tacttile Disturbances: 0-None Auditory Disturbances: 0-None Visual Disturbances: 0-None Headache: 4-Moderately Severe CIWA-Ar Total Score: 15 - Admission Criteria OASAS Guidelines: Admission for Medically Managed Detox: Requires at least one of the followin. CIWA greater than 12 2. Seizures within the past 24 hours 3. Delirium tremens within the past 24 hours 4. Hallucinations within the past 24 hours 5. Acute intervention needed for co occurring medical disorder 6. Acute intervention needed for co occurring psychiatric disorder 7. Severe withdrawal that cannot be handled at a lower level of care (continued vomiting, continued diarrhea, abnormal vital signs) requiring intravenous medication and/or fluids 8. Admission ROS [facility] Chief Complaint: seeking help from alcohol, cocaine, and PCP Allergies/Adverse Reactions: Allergies Allergy/AdvReac Type Severity Reaction Status Date / Time Penicillins Allergy Severe Rash Verified 12/18/18 12:02 pork derived (porcine) Allergy Severe Hives Verified 12/18/18 12:02 History of Present Illness: 54 y/o/m with PMHx of diabetes, HTN, HLD, neuropathy, and prostate cancer here seeking help for alcohol, cocaine, and PCP use. He was here for rehab 2 months ago for 7 days. He was able to stay drug free for 3 weeks before he started using again. He has been drinking 1 pint of liquor daily and about 18 10oz beers daily. He has a history of drug related seizures. His last seizure was in September of this year and he went to [facility] in [place]. While he was there he was told he had a mild stroke and was kept there for 5 days. He states he has had some residual weakness in his legs but he is able to walk. He has been using $20 of cocaine every day, which he uses by smoking. He is freebasing his own cocaine. He has been using 2 bags of PCP twice a week. He last used alcohol, PCP, and heroin this morning. He was arrested for drug possession in 2016 and has been with [facility] since then. He was mandated by [facility] to come here. He has not been taking his diabetes medication regularly. He had an appendectomy in 1987. He smokes 2 packs of cigarettes daily. Spoke with patients pharmacy, confirmed Insulin 35 units before breakfast, lunch , and dinner. - Ebola screening Have you traveled outside of the country in the last 21 days: No Have you had contact with anyone from an Ebola affected area: No Do you have a fever: No - Review of Systems Constitutional: Chills, Fever, Loss of Appetite EENT: reports: Nose Congestion, Throat Pain Respiratory: reports: Cough, Shortness of Breath Cardiac: reports: No Symptoms Reported GI: reports: Diarrhea Musculoskeletal: reports: Back Pain (chronic) Integumentary: reports: No Symptoms Reported Neuro: reports: Headache Endocrine: reports: No Symptoms Reported Psychiatric: reports: Agitated, Anxious Other Systems: Reviewed and Negative Patient History - Patient Medical History Hx Anemia: No Hx Asthma: No Hx Chronic Obstructive Pulmonary Disease (COPD): No Hx Cancer: No Hx Cardiac Disorders: No Hx Congestive Heart Failure: No Hx Hypertension: Yes Hx Hypercholesterolemia: Yes (no med) Hx Pacemaker: No HX Cerebrovascular Accident: No Hx Seizures: No Hx Dementia: No Hx Diabetes: Yes (IDDM BGM reading HI) Hx Gastrointestinal Disorders: No Hx Liver Disease: No Hx Genitourinary Disorders: No Hx Sexually Transmitted Disorders: No Hx Renal Disease (ESRD): No Hx Thyroid Disease: No Hx Human Immunodeficiency Virus (HIV): No (last 05/31 negative) Hx Hepatitis C: No Hx Depression: Yes Hx Suicide Attempt: No Hx Bipolar Disorder: No Hx Schizophrenia: No Other Medical History: no suicidal or homicidal ideations - Patient Surgical History Past Surgical History: Yes Hx Neurologic Surgery: No Hx Cataract Extraction: No Hx Cardiac Surgery: No Hx Lung Surgery: No Hx Breast Surgery: No Hx Breast Biopsy: No Hx Abdominal Surgery: No Hx Appendectomy: Yes (1985) Hx Cholecystectomy: No Hx Genitourinary Surgery: No Hx Section: No Hx Orthopedic Surgery: No Anesthesia Reaction: No - PPD History Previous Implant?: Yes Documented Results: Negative w/o proof Implanted On Prior R Admission?: Yes Date: 05/24/18 Results: NEGATIVE - Smoking Cessation Smoking history: Current every day smoker Have you smoked in the past 12 months: Yes Aproximately how many cigarettes per day: 40 Hx Chewing Tobacco Use: No Initiated information on smoking cessation: Yes 'Breaking Loose' booklet given: 02/26/19 - Substance & Tx. History Hx Alcohol Use: Yes Substance Use Type: Alcohol, Cocaine - Substances abused Alcohol Substance route: Oral Frequency: Daily Amount used: one liter of voldka and up to 18 10oz beers Age of first use: 8 Date of last use: 02/25/19 Cocaine Substance route: Inhalation Frequency: 1-2 times per week Amount used: 50 dollars Age of first use: 16 Date of last use: 02/26/19 Crack Other (specify): freebasing own cocaine. Substance route: Smoking Frequency: Daily Amount used: 75 dolllars Age of first use: 24 Date of last use: 02/25/19 Other Other (specify): Percocet Substance route: Oral Frequency: Daily Amount used: 3 pills Age of first use: 34 Date of last use: 12/18/18 PCP Substance route: Smoking Frequency: 1-2 times per week Amount used: 2 bags Age of first use: 16 Date of last use: 02/25/19 Family Disease History - Family Disease History Family Disease History: Diabetes: Mother, Other: Father (alcohol,) Admission Physical Exam [facility] - Vital Signs Vital Signs: Vital Signs - 24 hr 02/26/19 02/26/19 14:48 15:25 Temperature 97.4 F L 97.4 F L Pulse Rate 85 85 Respiratory 18 18 Rate Blood Pressure 107/69 107/69 - Physical General Appearance: Yes: Sweating HEENTM: Yes: EOMI, Normocephalic Respiratory: Yes: Lungs Clear, Normal Breath Sounds, No Accessory Muscle Use Neck: Yes: Supple Cardiology: Yes: Regular Rhythm, Regular Rate, S1, S2 Abdominal: Yes: Normal Bowel Sounds, Soft, Tenderness (diffuse tenderness to palpation) Extremities: Yes: Normal Capillary Refill, Swelling (2+ non pitting edema bilaterally) Neurological: Yes: Fully Oriented, Alert, Motor Strength 5/5 Integumentary: Yes: Dry - Diagnostic (1) Alcohol use disorder Current Visit: Yes Status: Acute (2) Cocaine use disorder Current Visit: Yes Status: Acute (3) Essential hypertension Current Visit: No Status: Chronic (4) IDDM (insulin dependent diabetes mellitus) Current Visit: No Status: Chronic (5) Nicotine dependence Current Visit: No Status: Chronic Qualifiers: Nicotine product type: cigarettes Substance use status: uncomplicated Qualified Code(s): F17.210 - Nicotine dependence, cigarettes, uncomplicated (6) Phencyclidine dependence Current Visit: No Status: Chronic Cleared for Admission S - Detox or Rehab [facility] Level of Care: Medically Managed Detox Regimen/Protocol: Librium Breathalyzer - Breathalyzer Breathalyzer: 0 Urine Drug Screen - Test Device Lot number: [id number] Expiration date: 12/11/20 - Control Is test valid?: Yes - Results Drug screen NEGATIVE: No Urine drug screen results: NAHOMY-Cocaine Inpatient Rehab Admission - Rehab Decision to Admit Inpatient rehab admission?: No
[2019-02-26] MEDS ORDERED: BISMUTH SUBSALICYLATE 524 MG/30 ML UD PO PRN (17:52)
[2019-02-26] MEDS ORDERED: ACETAMINOPHEN 325 MG TABLET (FP) PO PRN ×2 (17:52)
[2019-02-26] MEDS ORDERED: MAG HYDROX/AL HYDROX/SIMETH 30 ML UNIT-DOSE CUP PO PRN (17:52)
[2019-02-26] MEDS ORDERED: chlordiazePOXIDE HCL 25 MG CAPSULE PO PRN (17:52)
[2019-02-26] MEDS ORDERED: hydrOXYzine HCL 25 MG TABLET (FP) PO PRN (17:52)
[2019-02-26] MEDS ORDERED: MAGNESIUM HYDROX 2400MG/30ML ORAL SUSPENSION 30 ML CUP PO PRN (17:52)
[2019-02-26] MEDS ORDERED: MENTHOL/PHENOL 1 EACH UD MM PRN (17:52)
[2019-02-26] MEDS ORDERED: MAGNESIUM CITRATE 300 ML BOTTLE PO PRN (17:52)
[2019-02-26] MEDS ORDERED: METHOCARBAMOL 500 MG TABLET PO PRN (17:52)
[2019-02-26] MEDS ORDERED: IBUPROFEN 400 MG TABLET (FP) PO PRN (17:52)
--- NOTE | 2019-02-26 18:14 | PN ---
"Teaching Attending Note Name of Resident: Julia Rodriguez ATTENDING PHYSICIAN STATEMENT I saw and evaluated the patient. I reviewed the resident's note and discussed the case with the resident. I agree with the resident's findings and plan as documented. SUBJECTIVE: This report was requested by: Radha Malik | Reference #: [id number] Others' Prescriptions Patient Name: Angelo Stevens Date: 1965 Address: [address] [place] [address] Sex: Male Rx Written Rx Dispensed Drug Quantity Days Supply Prescriber Name 02/07/2019 02/07/2019 endocet 10-325 mg tablet 40 7 AliyahadmNicole de pazanmi 01/04/2019 02/01/2019 clonazepam 2 mg tablet 60 30 Adepoju, Louise [place] 02/01/2019 02/01/2019 clonazepam 1 mg tablet 70 30 Adepoju, Louise [place] 12/07/2018 12/07/2018 clonazepam 2 mg tablet 60 30 Adepoju, Louise [place] 11/22/2018 11/22/2018 endocet 10-325 mg tablet 21 7 Leandro Kaur M 09/20/2018 09/20/2018 endocet 10-325 mg tablet 90 30 Leandro Kaur,M 09/15/2018 09/15/2018 clonazepam 2 mg tablet 60 30 Rambo Hilario) 09/11/2018 09/11/2018 oxycodone-acetaminophen 5-325 mg tab 15 5 Rambo Hilario) 08/23/2018 08/23/2018 endocet 10-325 mg tablet 28 7 Leandro Kaur,Ady 07/28/2018 08/09/2018 clonazepam 2 mg tablet 60 30 Rambo Hilario) 07/16/2018 07/16/2018 endocet 10-325 mg tablet 90 30 Leandro Kaur M 07/14/2018 07/14/2018 clonazepam 2 mg tablet 60 30 Rambo Hilario) 07/11/2018 07/11/2018 clonazepam 2 mg tablet 5 5 Rambo Hilario) 06/21/2018 06/21/2018 endocet 10-325 mg tablet 90 30 Leandro Kaur,Ady 06/12/2018 06/12/2018 clonazepam 2 mg tablet 25 25 Rambo Hilario () 05/16/2018 05/16/2018 clonazepam 2 mg tablet 25 30 Rambo Hilario) 05/11/2018 05/11/2018 endocet 10-325 mg tablet 90 30 Leandro Kaur M 04/23/2018 04/24/2018 clonazepam 2 mg tablet 25 25 Rambo Hilario) 04/05/2018 04/14/2018 endocet 10-325 mg tablet 90 30 Leandro Kaur M 03/21/2018 03/21/2018 clonazepam 2 mg tablet 30 30 Rambo Hilario () 03/13/2018 03/16/2018 endocet 10-325 mg tablet 90 30 Leandro Kaur M pt here requesting detox from etoh use , reports relapse approximately 3 weeks after d/c from this facility in December 2018 , current daily use 1 pint liquor and 18 x 12 oz beers daily , reports w/d seizures, latest use today , current symptoms as above . cocaine : 20 $ /day PCP 2 x/week tobacco : 2 ppd . PMHx : DM I since 1995 on Insulin non- compliant w/ meds , HTN, HLD, neuropathy, prostate cancer, CVA w/ residual LE weakness , appy . OBJECTIVE: wnwd , intoxicated CIWA as above . ASSESSMENT AND PLAN: Etoh abuse - Librium taper . Encouraged participation in rehab , compliance w/ meds ."
[2019-02-26] MEDS: ASPIRIN 81 MG CHEWABLE TABLETS PO SCH (19:56)
[2019-02-26] MEDS: NICOTINE 7 MG/24 HOURS TOPICAL PATCH TD SCH (19:56)
[2019-02-27] MEDS: INSULIN SLIDING SCALE (NOVOLOG) 1 VIAL SQ SCH ×5 (00:02→23:53)
[2019-02-27] MEDS: INSULIN (LEVEMIR) 100 UNITS/ML UNITS SQ SCH ×3 (00:02→23:52)
[2019-02-27] MEDS: ATORVASTATIN CA 40 MG TABLET (FP) PO SCH ×2 (00:03→23:53)
[2019-02-27] MEDS: THIAMINE HCL 100 MG TABLET (FP) PO SCH ×2 (00:03→23:53)
[2019-02-27] MEDS: chlordiazePOXIDE HCL 25 MG CAPSULE PO SCH ×5 (00:03→23:53)
[2019-02-27] MEDS ORDERED: INSULIN SLIDING SCALE (NOVOLOG) 1 VIAL SQ ONE (07:11)
[2019-02-27] MEDS: INSULIN (NOVOLOG) ASPART 100 UNITS/ML 10ML VIAL SQ SCH ×3 (07:14→18:41)
[2019-02-27 09:47] LABS: HEMATOCRIT 44.7 % (35.4-49); HEMOGLOBIN 15.6 GM/dL (11.7-16.9); MCH 32.6 pg (25.7-33.7); MCHC 34.8 g/dl (32.0-35.9); MEAN CELL VOLUME 93.5 fl (80-96); MEAN PLT VOLUME 10.2 fl (7.5-11.1); PLATELET COUNT 302 K/MM3 (134-434); RBC 4.78 M/mm3 (4.00-5.60); RDW 13.7 % (11.9-15.9)
[2019-02-27 10:12] LABS: ALBUMIN 4.3 g/dl (3.4-5.0); BILIRUBIN,TOTAL 0.9 mg/dL (0.2-1); BLOOD UREA NITROGEN 23.5 mg/dL (7-18); CALCIUM 9.9 mg/dL (8.5-10.1); CREATININE 2.1 mg/dL (0.55-1.3); TOT PROT 8.5 g/dl (6.4-8.2)
[2019-02-27] MEDS: PRENATAL VITAMINS W/ FOLIC ACID TABLET (FP) PO SCH (10:44)
[2019-02-27] MEDS: FLUOCINONIDE 0.05% CREAM (15 GM TUBE) TP PRN (10:45)
[2019-02-27] MEDS: ASPIRIN 81 MG CHEWABLE TABLETS PO SCH (10:45)
--- NOTE | 2019-02-27 11:23 | PN ---
[facility] CIWA - CIWA Score Nausea/Vomitin-Mild Nausea/No Vomiting Muscle Tremors: 3 Anxiety: 2 Agitation: 3 Paroxysmal Sweats: 1-Minimal Palms Moist Orientation: 0-Oriented Tacttile Disturbances: 1-Very Mild Itch/Numbness Auditory Disturbances: 0-None Visual Disturbances: 0-None Headache: 0-None Present CIWA-Ar Total Score: 11 S Progress Note (SOAP) Subjective: PATIENT REPORTED THAT HE FELL LAST NIGHT DUE TO HIS NEUROPATHY OF THE LEGS FOR "YEARS" DENIES PAIN OFFER CANE FOR AMBULATION PATIENT IS ALERT ORIENTED X 3 EATING BREAKFAST DENIES PAIN MILD TOLERABLE NAUSE FROM ALCOHOL WITHDRAWAL PATIENT HAS LONG HISTORY OF DIABETES NONE COMPLIANCE WITH ANTIDIABETIC MEDICATION WHILE DRINKING ALCOHOL 600 UPON ADMISSION, TREATED WITH NOVOLOG CURRENT BGM 218 DISCUSS RISKS OF GLUCOSE ELEVATION Objective: 02/27/19 11:24 Vital Signs Temperature 98.4 F 02/27/19 09:30 Pulse Rate 91 H 02/27/19 09:30 Respiratory Rate 20 02/27/19 09:30 Blood Pressure 101/66 02/27/19 09:30 O2 Sat by Pulse Oximetry (%) Laboratory Last Values WBC 7.0 K/mm3 (4.0-10.0) 02/27/19 07:00 RBC 4.78 M/mm3 (4.00-5.60) 02/27/19 07:00 Hgb 15.6 GM/dL (11.7-16.9) 02/27/19 07:00 Hct 44.7 % (35.4-49) 02/27/19 07:00 MCV 93.5 fl (80-96) 02/27/19 07:00 MCH 32.6 pg (25.7-33.7) 02/27/19 07:00 MCHC 34.8 g/dl (32.0-35.9) 02/27/19 07:00 RDW 13.7 % (11.9-15.9) 02/27/19 07:00 Plt Count 302 K/MM3 (134-434) D 02/27/19 07:00 MPV 10.2 fl (7.5-11.1) 02/27/19 07:00 Sodium 137 mmol/L (136-145) 02/27/19 07:00 Potassium 4.0 mmol/L (3.5-5.1) 02/27/19 07:00 Chloride 101 mmol/L (98-107) 02/27/19 07:00 Carbon Dioxide 27 mmol/L (21-32) 02/27/19 07:00 Anion Gap 9 MMOL/L (8-16) 02/27/19 07:00 BUN 23.5 mg/dL (7-18) H 02/27/19 07:00 Creatinine 2.1 mg/dL (0.55-1.3) H 02/27/19 07:00 Est GFR (CKD-EPI)AfAm 39.87 02/27/19 07:00 Est GFR (CKD-EPI)NonAf 34.40 02/27/19 07:00 POC Glucometer 218 UNITS (80-120) 02/27/19 10:39 Random Glucose 417 mg/dL (74-106) H* 02/27/19 07:00 Calcium 9.9 mg/dL (8.5-10.1) 02/27/19 07:00 Total Bilirubin 0.9 mg/dL (0.2-1) 02/27/19 07:00 AST 14 U/L (15-37) L 02/27/19 07:00 ALT 20 U/L (13-61) 02/27/19 07:00 Alkaline Phosphatase 131 U/L (45-117) H 02/27/19 07:00 Total Protein 8.5 g/dl (6.4-8.2) H 02/27/19 07:00 Albumin 4.3 g/dl (3.4-5.0) 02/27/19 07:00 LAB NOTED Assessment: 02/27/19 11:25 ALCOHOL WITHDRAWAL SX Plan: CONTINUE ALCOHOL DETOX
[2019-02-27] MEDS: NICOTINE 7 MG/24 HOURS TOPICAL PATCH TD SCH (11:37)
[2019-02-28] MEDS: chlordiazePOXIDE HCL 25 MG CAPSULE PO SCH ×4 (06:55→22:31)
[2019-02-28] MEDS ORDERED: INSULIN SLIDING SCALE (NOVOLOG) 1 VIAL SQ ONE ×2 (06:57→16:50)
[2019-02-28] MEDS: INSULIN SLIDING SCALE (NOVOLOG) 1 VIAL SQ SCH ×4 (07:03→21:16)
[2019-02-28] MEDS: INSULIN (NOVOLOG) ASPART 100 UNITS/ML 10ML VIAL SQ SCH ×3 (07:03→17:10)
[2019-02-28] MEDS: ASPIRIN 81 MG CHEWABLE TABLETS PO SCH (10:49)
[2019-02-28] MEDS: PRENATAL VITAMINS W/ FOLIC ACID TABLET (FP) PO SCH (10:49)
[2019-02-28] MEDS: NICOTINE 7 MG/24 HOURS TOPICAL PATCH TD SCH (10:50)
[2019-02-28] MEDS: INSULIN (LEVEMIR) 100 UNITS/ML UNITS SQ SCH ×2 (10:58→22:33)
--- NOTE | 2019-02-28 11:50 | PN ---
[facility] CIWA - CIWA Score Nausea/Vomitin-No Nausea/No Vomiting Muscle Tremors: 2 Anxiety: 3 Agitation: 0-Normal Activity Paroxysmal Sweats: 1-Minimal Palms Moist Orientation: 0-Oriented Tacttile Disturbances: 3-Moderate Itch/Numb/Burn Auditory Disturbances: 0-None Visual Disturbances: 0-None Headache: 1-Very Mild CIWA-Ar Total Score: 10 S Progress Note (SOAP) Subjective: c/o body aches, sweats, chills, numbness and tingling Objective: 02/28/19 11:50 Vital Signs Temperature 98.1 F 02/28/19 09:15 Pulse Rate 92 H 02/28/19 09:15 Respiratory Rate 18 02/28/19 09:15 Blood Pressure 128/85 02/28/19 09:15 O2 Sat by Pulse Oximetry (%) Laboratory Last Values WBC 7.0 K/mm3 (4.0-10.0) 02/27/19 07:00 RBC 4.78 M/mm3 (4.00-5.60) 02/27/19 07:00 Hgb 15.6 GM/dL (11.7-16.9) 02/27/19 07:00 Hct 44.7 % (35.4-49) 02/27/19 07:00 MCV 93.5 fl (80-96) 02/27/19 07:00 MCH 32.6 pg (25.7-33.7) 02/27/19 07:00 MCHC 34.8 g/dl (32.0-35.9) 02/27/19 07:00 RDW 13.7 % (11.9-15.9) 02/27/19 07:00 Plt Count 302 K/MM3 (134-434) D 02/27/19 07:00 MPV 10.2 fl (7.5-11.1) 02/27/19 07:00 Sodium 137 mmol/L (136-145) 02/27/19 07:00 Potassium 4.0 mmol/L (3.5-5.1) 02/27/19 07:00 Chloride 101 mmol/L (98-107) 02/27/19 07:00 Carbon Dioxide 27 mmol/L (21-32) 02/27/19 07:00 Anion Gap 9 MMOL/L (8-16) 02/27/19 07:00 BUN 23.5 mg/dL (7-18) H 02/27/19 07:00 Creatinine 2.1 mg/dL (0.55-1.3) H 02/27/19 07:00 Est GFR (CKD-EPI)AfAm 39.87 02/27/19 07:00 Est GFR (CKD-EPI)NonAf 34.40 02/27/19 07:00 POC Glucometer 182 UNITS (80-120) 02/28/19 10:52 Random Glucose 417 mg/dL (74-106) H* 02/27/19 07:00 Calcium 9.9 mg/dL (8.5-10.1) 02/27/19 07:00 Total Bilirubin 0.9 mg/dL (0.2-1) 02/27/19 07:00 AST 14 U/L (15-37) L 02/27/19 07:00 ALT 20 U/L (13-61) 02/27/19 07:00 Alkaline Phosphatase 131 U/L (45-117) H 02/27/19 07:00 Total Protein 8.5 g/dl (6.4-8.2) H 02/27/19 07:00 Albumin 4.3 g/dl (3.4-5.0) 02/27/19 07:00 RPR Titer Nonreactive (NONREACTIVE) 02/27/19 07:00 Assessment: 02/28/19 11:54 Patient AO x 3 no acute distress full, ROM, ambulating in the unit, no gait disturbance Plan: increase po fluids continue fall precautions continue detox continue to monitor
[2019-02-28] MEDS ORDERED: GABAPENTIN 300 MG CAPSULE (FP) PO SCH (14:00)
[2019-02-28] MEDS: THIAMINE HCL 100 MG TABLET (FP) PO SCH (22:31)
[2019-02-28] MEDS: ATORVASTATIN CA 40 MG TABLET (FP) PO SCH (22:31)
[2019-03-01] MEDS ORDERED: chlordiazePOXIDE HCL 10 MG CAPSULE PO PRN
[2019-03-01] MEDS: chlordiazePOXIDE HCL 10 MG CAPSULE PO SCH ×4 (06:16→22:04)
[2019-03-01] MEDS: INSULIN (NOVOLOG) ASPART 100 UNITS/ML 10ML VIAL SQ SCH ×3 (06:23→17:35)
[2019-03-01] MEDS: INSULIN SLIDING SCALE (NOVOLOG) 1 VIAL SQ SCH ×4 (06:23→22:04)
[2019-03-01] MEDS: ASPIRIN 81 MG CHEWABLE TABLETS PO SCH (11:10)
[2019-03-01] MEDS: PRENATAL VITAMINS W/ FOLIC ACID TABLET (FP) PO SCH (11:10)
[2019-03-01] MEDS: INSULIN (LEVEMIR) 100 UNITS/ML UNITS SQ SCH ×2 (11:18→22:04)
[2019-03-01] MEDS: NICOTINE 7 MG/24 HOURS TOPICAL PATCH TD SCH (11:23)
--- NOTE | 2019-03-01 13:51 | PN ---
S CIWA - CIWA Score Nausea/Vomitin-Mild Nausea/No Vomiting Muscle Tremors: 1-None Visible, but Nelson Anxiety: 1-Mildly Anxious Agitation: 1-Slight > Activity Paroxysmal Sweats: 2 Orientation: 0-Oriented Tacttile Disturbances: 3-Moderate Itch/Numb/Burn Auditory Disturbances: 0-None Visual Disturbances: 0-None Headache: 0-None Present CIWA-Ar Total Score: 9 BHS Progress Note (SOAP) Subjective: interrupted sleep, sweats, shakes no dizziness Objective: 03/01/19 13:48 Vital Signs Temperature 97.7 F 03/01/19 13:35 Pulse Rate 81 03/01/19 13:35 Respiratory Rate 18 03/01/19 13:35 Blood Pressure 121/77 03/01/19 13:35 O2 Sat by Pulse Oximetry (%) Laboratory Tests 02/26/19 02/27/19 02/27/19 23:47 06:17 07:00 WBC 7.0 RBC 4.78 Hgb 15.6 Hct 44.7 MCV 93.5 MCH 32.6 MCHC 34.8 RDW 13.7 Plt Count 302 D MPV 10.2 Sodium Potassium Chloride Carbon Dioxide Anion Gap BUN Creatinine Est GFR (CKD-EPI)AfAm Est GFR (CKD-EPI)NonAf POC Glucometer > 600 434 Random Glucose Calcium Total Bilirubin AST ALT Alkaline Phosphatase Total Protein Albumin RPR Titer 02/27/19 02/27/19 02/27/19 07:00 07:00 10:39 WBC RBC Hgb Hct MCV MCH MCHC RDW Plt Count MPV Sodium 137 Potassium 4.0 Chloride 101 Carbon Dioxide 27 Anion Gap 9 BUN 23.5 H Creatinine 2.1 H Est GFR (CKD-EPI)AfAm 39.87 Est GFR (CKD-EPI)NonAf 34.40 POC Glucometer 218 Random Glucose 417 H* Calcium 9.9 Total Bilirubin 0.9 AST 14 L ALT 20 Alkaline Phosphatase 131 H Total Protein 8.5 H Albumin 4.3 RPR Titer Nonreactive 02/28/19 02/28/19 03/01/19 10:52 21:10 06:15 WBC RBC Hgb Hct MCV MCH MCHC RDW Plt Count MPV Sodium Potassium Chloride Carbon Dioxide Anion Gap BUN Creatinine Est GFR (CKD-EPI)AfAm Est GFR (CKD-EPI)NonAf POC Glucometer 182 136 294 Random Glucose Calcium Total Bilirubin AST ALT Alkaline Phosphatase Total Protein Albumin RPR Titer 03/01/19 11:15 WBC RBC Hgb Hct MCV MCH MCHC RDW Plt Count MPV Sodium Potassium Chloride Carbon Dioxide Anion Gap BUN Creatinine Est GFR (CKD-EPI)AfAm Est GFR (CKD-EPI)NonAf POC Glucometer 183 Random Glucose Calcium Total Bilirubin AST ALT Alkaline Phosphatase Total Protein Albumin RPR Titer Assessment: 03/01/19 13:49 withdrawal sx's dm neuropathy ambulates with a cane Plan: cont. detox increase fluids monitor bgm;s neurontin 200mg bid
[2019-03-01] MEDS ORDERED: GABAPENTIN 300 MG CAPSULE (FP) PO SCH (14:00)
[2019-03-01] MEDS: GABAPENTIN 100 MG CAPSULE (FP) PO SCH ×2 (15:31→22:03)
[2019-03-01] MEDS: THIAMINE HCL 100 MG TABLET (FP) PO SCH (22:03)
[2019-03-01] MEDS: ATORVASTATIN CA 40 MG TABLET (FP) PO SCH (22:04)
[2019-03-01] MEDS: MELATONIN 5 MG TABLETS PO PRN (22:05)
[2019-03-02] MEDS: chlordiazePOXIDE HCL 10 MG CAPSULE PO SCH ×2 (06:25→18:04)
[2019-03-02] MEDS: INSULIN (NOVOLOG) ASPART 100 UNITS/ML 10ML VIAL SQ SCH ×4 (06:36→17:01)
[2019-03-02] MEDS: GABAPENTIN 100 MG CAPSULE (FP) PO SCH ×3 (06:36→22:40)
[2019-03-02] MEDS: INSULIN SLIDING SCALE (NOVOLOG) 1 VIAL SQ SCH ×4 (06:37→22:41)
[2019-03-02] MEDS: NICOTINE POLACRILEX 2 MG GUM BUC PRN ×2 (10:22→22:42)
[2019-03-02] MEDS: INSULIN (LEVEMIR) 100 UNITS/ML UNITS SQ SCH ×2 (10:23→22:41)
[2019-03-02] MEDS: ASPIRIN 81 MG CHEWABLE TABLETS PO SCH (10:23)
[2019-03-02] MEDS: NICOTINE 7 MG/24 HOURS TOPICAL PATCH TD SCH (10:23)
[2019-03-02] MEDS: PRENATAL VITAMINS W/ FOLIC ACID TABLET (FP) PO SCH (10:23)
--- NOTE | 2019-03-02 18:16 | PN ---
S CIWA - CIWA Score Nausea/Vomitin-No Nausea/No Vomiting Muscle Tremors: 2 Anxiety: 2 Agitation: 1-Slight > Activity Paroxysmal Sweats: 2 Orientation: 0-Oriented Tacttile Disturbances: 1-Very Mild Itch/Numbness Auditory Disturbances: 0-None Visual Disturbances: 0-None Headache: 0-None Present CIWA-Ar Total Score: 8 BHS Progress Note (SOAP) Subjective: Chills, Tremors, Diarrhea. Objective: PATIENT A & O X 3, OBSERVED AMBULATING ON UNIT WITH ASSISTANCE OF A CANE. IN NO ACUTE DISTRESS. 03/02/19 18:12 Vital Signs Temperature 97.7 F 03/02/19 13:59 Pulse Rate 90 03/02/19 13:59 Respiratory Rate 18 03/02/19 13:59 Blood Pressure 115/77 03/02/19 13:59 O2 Sat by Pulse Oximetry (%) Laboratory Tests 02/26/19 02/27/19 02/27/19 23:47 06:17 07:00 WBC 7.0 RBC 4.78 Hgb 15.6 Hct 44.7 MCV 93.5 MCH 32.6 MCHC 34.8 RDW 13.7 Plt Count 302 D MPV 10.2 Sodium Potassium Chloride Carbon Dioxide Anion Gap BUN Creatinine Est GFR (CKD-EPI)AfAm Est GFR (CKD-EPI)NonAf POC Glucometer > 600 434 Random Glucose Calcium Total Bilirubin AST ALT Alkaline Phosphatase Total Protein Albumin RPR Titer 02/27/19 02/27/19 02/27/19 07:00 07:00 10:39 WBC RBC Hgb Hct MCV MCH MCHC RDW Plt Count MPV Sodium 137 Potassium 4.0 Chloride 101 Carbon Dioxide 27 Anion Gap 9 BUN 23.5 H Creatinine 2.1 H Est GFR (CKD-EPI)AfAm 39.87 Est GFR (CKD-EPI)NonAf 34.40 POC Glucometer 218 Random Glucose 417 H* Calcium 9.9 Total Bilirubin 0.9 AST 14 L ALT 20 Alkaline Phosphatase 131 H Total Protein 8.5 H Albumin 4.3 RPR Titer Nonreactive 02/28/19 02/28/19 03/01/19 10:52 21:10 06:15 WBC RBC Hgb Hct MCV MCH MCHC RDW Plt Count MPV Sodium Potassium Chloride Carbon Dioxide Anion Gap BUN Creatinine Est GFR (CKD-EPI)AfAm Est GFR (CKD-EPI)NonAf POC Glucometer 182 136 294 Random Glucose Calcium Total Bilirubin AST ALT Alkaline Phosphatase Total Protein Albumin RPR Titer 03/01/19 03/01/19 03/01/19 11:15 17:31 22:02 WBC RBC Hgb Hct MCV MCH MCHC RDW Plt Count MPV Sodium Potassium Chloride Carbon Dioxide Anion Gap BUN Creatinine Est GFR (CKD-EPI)AfAm Est GFR (CKD-EPI)NonAf POC Glucometer 183 504 229 Random Glucose Calcium Total Bilirubin AST ALT Alkaline Phosphatase Total Protein Albumin RPR Titer 03/02/19 03/02/19 11:28 16:56 WBC RBC Hgb Hct MCV MCH MCHC RDW Plt Count MPV Sodium Potassium Chloride Carbon Dioxide Anion Gap BUN Creatinine Est GFR (CKD-EPI)AfAm Est GFR (CKD-EPI)NonAf POC Glucometer 398 216 Random Glucose Calcium Total Bilirubin AST ALT Alkaline Phosphatase Total Protein Albumin RPR Titer LABS NOTED. Assessment: 03/02/19 18:13 WITHDRAWAL SYMPTOMS. AZOTEMIA. 03/02/19 18:14 Plan: CONTINUE DETOX. INCREASE DAILY PO WATER INTAKE. PRN PEPTO-BISMOL PO FOR DIARRHEA. D/C IBUPROFEN AND MAGNESIUM-CONTAINING MEDS. FOR ABNORMAL ADMISSION RENAL LAB VALUES. PATIENT SCHEDULED FOR D/C FROM DETOX UNIT TOMORROW.
[2019-03-02] MEDS: THIAMINE HCL 100 MG TABLET (FP) PO SCH (22:40)
[2019-03-02] MEDS: ATORVASTATIN CA 40 MG TABLET (FP) PO SCH (22:40)
[2019-03-02] MEDS: MELATONIN 5 MG TABLETS PO PRN (22:41)
[2019-03-02] MEDS: FLUOCINONIDE 0.05% CREAM (15 GM TUBE) TP PRN (23:01)
[2019-03-02] MEDS ORDERED: INSULIN SLIDING SCALE (NOVOLOG) 1 VIAL SQ ONE (23:16)
[2019-03-03] MEDS ORDERED: chlordiazePOXIDE HCL 10 MG CAPSULE PO ONE (05:00)
[2019-03-03] MEDS: GABAPENTIN 100 MG CAPSULE (FP) PO SCH (05:29)
[2019-03-03] MEDS: INSULIN (NOVOLOG) ASPART 100 UNITS/ML 10ML VIAL SQ SCH (07:10)
[2019-03-03] MEDS: INSULIN SLIDING SCALE (NOVOLOG) 1 VIAL SQ SCH (07:10)
[2019-03-03 09:14] VITALS: BP 92/64; PULSE 114; TEMP 97.9
--- NOTE | 2019-03-03 09:50 | DS ---
[facility] Detox Discharge Summary Admission Date: 02/26/19 Discharge Date: 03/03/19 - History Present History: Alcohol Dependence Additional Comments: 54 years old male admitted on 02/26/19 for acute alcohol withdrawal sx management no complication throughout the detox stay alert oriented x 3 history of hypertension insulin depended diabetes II and hyperlipidemia - Physical Exam Results Vital Signs: Vital Signs Temperature 97.9 F 03/03/19 09:13 Pulse Rate 114 H 03/03/19 09:13 Respiratory Rate 18 03/03/19 09:13 Blood Pressure 92/64 03/03/19 09:13 O2 Sat by Pulse Oximetry (%) Pertinent Admission Physical Exam Findings: alcohol withdrawal sx Laboratory Last Values WBC 7.0 K/mm3 (4.0-10.0) 02/27/19 07:00 RBC 4.78 M/mm3 (4.00-5.60) 02/27/19 07:00 Hgb 15.6 GM/dL (11.7-16.9) 02/27/19 07:00 Hct 44.7 % (35.4-49) 02/27/19 07:00 MCV 93.5 fl (80-96) 02/27/19 07:00 MCH 32.6 pg (25.7-33.7) 02/27/19 07:00 MCHC 34.8 g/dl (32.0-35.9) 02/27/19 07:00 RDW 13.7 % (11.9-15.9) 02/27/19 07:00 Plt Count 302 K/MM3 (134-434) D 02/27/19 07:00 MPV 10.2 fl (7.5-11.1) 02/27/19 07:00 Sodium 137 mmol/L (136-145) 02/27/19 07:00 Potassium 4.0 mmol/L (3.5-5.1) 02/27/19 07:00 Chloride 101 mmol/L (98-107) 02/27/19 07:00 Carbon Dioxide 27 mmol/L (21-32) 02/27/19 07:00 Anion Gap 9 MMOL/L (8-16) 02/27/19 07:00 BUN 23.5 mg/dL (7-18) H 02/27/19 07:00 Creatinine 2.1 mg/dL (0.55-1.3) H 02/27/19 07:00 Est GFR (CKD-EPI)AfAm 39.87 02/27/19 07:00 Est GFR (CKD-EPI)NonAf 34.40 02/27/19 07:00 POC Glucometer 360 UNITS (80-120) 03/03/19 05:31 Random Glucose 417 mg/dL (74-106) H* 02/27/19 07:00 Calcium 9.9 mg/dL (8.5-10.1) 02/27/19 07:00 Total Bilirubin 0.9 mg/dL (0.2-1) 02/27/19 07:00 AST 14 U/L (15-37) L 02/27/19 07:00 ALT 20 U/L (13-61) 02/27/19 07:00 Alkaline Phosphatase 131 U/L (45-117) H 02/27/19 07:00 Total Protein 8.5 g/dl (6.4-8.2) H 02/27/19 07:00 Albumin 4.3 g/dl (3.4-5.0) 02/27/19 07:00 RPR Titer Nonreactive (NONREACTIVE) 02/27/19 07:00 lab noted - Treatment Hospital Course: Detox Protocol Followed, Detoxed Safely, Responded well, Discharged Condition Good, Rehab Referral Accepted Patient has Accepted a Rehab Referral to: [facility] - Medication Discharge Medications: Ambulatory Orders Gabapentin 800 mg PO TID 12/11/17 Calcium Carbonate/Vitamin D3 [Calcium 500-Vit D3 200 Caplet] 1 each PO BID 05/22 Clotrimazole [Jock Itch Relief] 15 gm TP BID 05/22/18 Ergocalciferol [Vitamin D2] 50,000 unit PO WEEKLY 05/22/18 Leuprolide Acetate [Lupron Depot 7.5MG -] 7.5 mg IM MONTHLY 10/04/18 Insulin Glargine,Hum.rec.anlog [Basaglar Kwikpen U-100] 55 unit SQ BID 10/08/18 Insulin Lispro [Admelog Solostar] 35 unit SQ TID 10/08/18 Diphenhydramine [Benadryl Capsule -] 100 mg PO HS 11/07/18 Aspirin [ASA -] 81 mg PO DAILY 02/26/19 Atorvastatin Ca [Lipitor] 40 mg PO HS 02/26/19 Fluocinonide 0.05% Cream [Lidex 0.05% Cream -] 1 applic TP BID 02/26/19 - Diagnosis (1) Alcohol dependence with uncomplicated withdrawal Current Visit: Yes Status: Acute (2) Essential hypertension Current Visit: Yes Status: Chronic (3) HLD (hyperlipidemia) Current Visit: Yes Status: Chronic Qualifiers: Hyperlipidemia type: unspecified Qualified Code(s): E78.5 - Hyperlipidemia , unspecified (4) IDDM (insulin dependent diabetes mellitus) Current Visit: Yes Status: Chronic (5) Nicotine dependence Current Visit: Yes Status: Acute Qualifiers: Nicotine product type: cigarettes Substance use status: in withdrawal Qualified Code(s): F17.213 - Nicotine dependence, cigarettes, with withdrawal - AMA Did Patient Leave Against Medical Advice: No
[2019-03-03] MEDS: PRENATAL VITAMINS W/ FOLIC ACID TABLET (FP) PO SCH (10:11)
[2019-03-03] MEDS: ASPIRIN 81 MG CHEWABLE TABLETS PO SCH (10:11)
[2019-03-03] MEDS: NICOTINE 7 MG/24 HOURS TOPICAL PATCH TD SCH (10:12)
== END 2019-03-03 11:15 | disposition home or self-care (01) | DRG 774 ==
LOC: YASAS 09:21 → Y3N 18:06
PROVIDERS: ADMIT Surgery; ATTEND Surgery
PROC: HZ2ZZZZ Detoxification Services for Substance Abuse Treatment (ICD-10-PCS; principal; 2019-02-26)
DX: F10.230 Alcohol dependence with withdrawal, uncomplicated (principal); F14.20 Cocaine dependence, uncomplicated; F16.20 Hallucinogen dependence, uncomplicated; F17.213 Nicotine dependence, cigarettes, with withdrawal; I10 Essential (primary) hypertension; E78.5 Hyperlipidemia, unspecified; E11.9 Type 2 diabetes mellitus without complications; R79.89 Other specified abnormal findings of blood chemistry; G62.9 Polyneuropathy, unspecified; I69.354 Hemiplegia and hemiparesis following cerebral infarction affecting left non-dominant side; Z85.46 Personal history of malignant neoplasm of prostate; R26.2 Difficulty in walking, not elsewhere classified; Z99.89 Dependence on other enabling machines and devices; Z79.4 Long term (current) use of insulin; Z91.14 Patient's other noncompliance with medication regimen; Z88.0 Allergy status to penicillin; W18.39XA Other fall on same level, initial encounter; Z91.81 History of falling; Y93.01 Activity, walking, marching and hiking; Y92.230 Patient room in hospital as the place of occurrence of the external cause
CPT/HCPCS: 36415; 80053; 82962; 85027; 86593

== ENCOUNTER 2019-02-27 13:40 | Emergency (ER) | payer OTHER ==
[2019-02-27 14:12] VITALS: BMI 27.0
--- NOTE | 2019-02-27 14:57 | PDOC ---
History of Present Illness - General Chief Complaint: Injury Stated Complaint: HEAD INJURY Time Seen by Provider: 02/27/19 13:58 History Source: Patient Exam Limitations: No Limitations - History of Present Illness Initial Comments: 02/27/19 14:50 54 yo M with a hx of HTN, HLD, insulin dependent DM, and polysubstance abuse ( ETOH, PCP (inhalation), and cocaine (inhalation)) presents to the emergency department s/p fall that occurred yesterday at 8pm at [facility]. Per the patient , he states he felt weak in his feet bilaterally and was able to catch himself partually before landing on his left hip. Currently, denies symptomatic complaints. Denies LOC and head trauma. Denies mechanical tripping. Denies the following symptoms antecedent to the fall: palpitations, SOB, chest pain, fevers , dizziness, lightheadedness, and nausea/vomiting. Allergies: PCN Surgical hx: Appendectomy Social: Denies tobacco. As written above Meds: insulin, lipitor Past History - Past Medical History Allergies/Adverse Reactions: Allergies Allergy/AdvReac Type Severity Reaction Status Date / Time Penicillins Allergy Severe Rash Verified 02/27/19 14:12 pork derived (porcine) Allergy Severe Hives Verified 02/27/19 14:12 Home Medications: Ambulatory Orders Gabapentin 800 mg PO TID 12/11/17 Calcium Carbonate/Vitamin D3 [Calcium 500-Vit D3 200 Caplet] 1 each PO BID 05/22 Clotrimazole [Jock Itch Relief] 15 gm TP BID 05/22/18 Ergocalciferol [Vitamin D2] 50,000 unit PO WEEKLY 05/22/18 Leuprolide Acetate [Lupron Depot 7.5MG -] 7.5 mg IM MONTHLY 10/04/18 Insulin Glargine,Hum.rec.anlog [Basaglar Kwikpen U-100] 55 unit SQ BID 10/08/18 Insulin Lispro [Admelog Solostar] 35 unit SQ TID 10/08/18 Diphenhydramine [Benadryl -] 100 mg PO HS 11/07/18 Aspirin [ASA -] 81 mg PO DAILY 02/26/19 Atorvastatin Ca [Lipitor] 40 mg PO HS 02/26/19 Fluocinonide 0.05% Cream [Lidex 0.05% Cream -] 1 applic TP BID 02/26/19 Anemia: No Asthma: No Cancer: No Cardiac Disorders: No CVA: No COPD: No CHF: No Dementia: No Diabetes: Yes (IDDM BGM reading HI) GI Disorders: No Disorders: No HTN: Yes Hypercholesterolemia: Yes (no med) Kidney Stones: No Liver Disease: No Seizures: No Thyroid Disease: No - Surgical History Abdominal Surgery: No Appendectomy: Yes (1985) Cardiac Surgery: No Cholecystectomy: No Lung Surgery: No Neurologic Surgery: No Orthopedic Surgery: No - Reproductive History Testicular Surgery: No - Suicide/Smoking/Psychosocial Hx Smoking History: Current every day smoker Have you smoked in the past 12 months: Yes Number of Cigarettes Smoked Daily: 40 Information on smoking cessation initiated: No 'Breaking Loose' booklet given: 02/26/19 Hx Alcohol Use: Yes (h/o alcohol abuse) Drug/Substance Use Hx: Yes (h/o crack, cocaine use) Substance Use Type: Alcohol, Cocaine Hx Substance Use Treatment: Yes Review of Systems - Review of Systems Able to Perform ROS?: Yes Is the patient limited Persian proficient: No Constitutional: No: Chills, Diaphoresis, Fever, Weakness HEENTM: No: Eye Pain, Ear Pain, Nose Pain, Throat Pain, Mouth Pain Respiratory: No: Cough, Shortness of Breath, Hemoptysis Cardiac (ROS): No: Chest Pain, Lightheadedness, Palpitations, Syncope, Chest Tightness ABD/GI: No: Constipated, Diarrhea, Nausea, Rectal Bleeding, Vomiting, Tarry Stools : No: Burning, Dysuria, Hematuria, Incontinence Musculoskeletal: No: Back Pain, Joint Pain, Neck Pain Integumentary: No: Bruising, Erythema, Rash Neurological: No: Headache, Numbness, Tingling, Tremors Psychiatric: No: Change in Appetite Endocrine: No: Unexplained Weight Gain Hematologic/Lymphatic: No: Anemia *Physical Exam - Vital Signs Last Vital Signs Temp Pulse Resp BP Pulse Ox 98.5 F 88 18 103/69 95 02/27/19 14:10 02/27/19 14:10 02/27/19 14:10 02/27/19 14:10 02/27/19 14:10 - Physical Exam General Appearance: Yes: Nourished, Appropriately Dressed. No: Apparent Distress, Intoxicated HEENT: positive: EOMI, AMY, Normal Voice, Symmetrical, Pharynx Normal, Hearing Grossly Normal. negative: Pale Conjunctivae, Scleral Icterus (R), Scleral Icterus (L), Muffled/Hoarse voice, Pharyngeal Erythema, Tonsillar Exudate, Tonsillar Erythema, Excessive drooling Neck: positive: Trachea midline, Supple. negative: Tender, Lymphadenopathy (R) , Lymphadenopathy (L), Tender lateral, Tender midline Respiratory/Chest: positive: Lungs Clear, Normal Breath Sounds. negative: Chest Tender, Respiratory Distress, Accessory Muscle Use, Crackles, Rales, Rhonchi, Stridor, Wheezing Cardiovascular: positive: Regular Rhythm, Regular Rate, S1, S2. negative: Systolic Murmur Gastrointestinal/Abdominal: positive: Normal Bowel Sounds, Flat, Soft. negative : Tender, Distended, Guarding, Rebound Rectal Exam: negative: heme negative stool Lymphatic: negative: Adenopathy Musculoskeletal: positive: Normal Inspection. negative: CVA Tenderness, Vertebral Tenderness Extremity: positive: Normal Capillary Refill, Normal Inspection, Normal Range of Motion. negative: Tender, Swelling, Calf Tenderness Integumentary: positive: Normal Color, Dry, Warm. 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 negative: Facial Droop, Numbness, Sensory Deficit ED Treatment Course - LABORATORY CBC & Chemistry Diagram: 02/27/19 15:24 02/27/19 15:24 Medical Decision Making - Medical Decision Making 02/27/19 16:07 54 yo M with a hx of HTN, HLD, insulin dependent DM, and polysubstance abuse ( ETOH, PCP (inhalation), and cocaine (inhalation)) presents to the emergency department s/p fall that occurred yesterday at 8pm at [facility] Initial vitals: Initial Vital Signs Temp Pulse Resp BP Pulse Ox 98.5 F 88 18 103/69 95 02/27/19 14:10 02/27/19 14:10 02/27/19 14:10 02/27/19 14:10 02/27/19 14:10 Work up: Laboratory Tests 02/27/19 02/27/19 02/28/19 15:24 15:24 06:54 WBC 8.4 RBC 4.46 Hgb 14.7 Hct 41.2 MCV 92.3 MCH 32.9 MCHC 35.7 RDW 13.5 Plt Count 258 MPV 9.1 D Absolute Neuts (auto) 3.4 Neutrophils % 40.4 L Lymphocytes % 46.4 H Monocytes % 9.3 Eosinophils % 2.7 Basophils % 1.2 Nucleated RBC % 0 Sodium 142 Potassium 3.7 Chloride 109 H Carbon Dioxide 27 Anion Gap 6 L BUN 24.1 H Creatinine 1.6 H Est GFR (CKD-EPI)AfAm 55.39 Est GFR (CKD-EPI)NonAf 47.79 POC Glucometer 426 Random Glucose 63 L Calcium 9.5 Total Bilirubin 0.6 AST 15 ALT 19 Alkaline Phosphatase 102 Creatine Kinase 329 H Creatine Kinase Index 1.0 CK-MB (CK-2) 3.4 Troponin I < 0.02 Total Protein 7.1 Albumin [address] shows possible obstructive communicating hydrocephalus. currently the patient is asymptomatic and ambulates in the department with no difficulty and is alert and oriented x3. Dr. Stone was consulted for evaluation. Patient was given juice and food for low blood sugar. Patient was signed out to Dr. Mann for further care and management. 02/28/19 11:24 *DC/Admit/Observation/Transfer Diagnosis at time of Disposition: Hydrocephalus Qualifiers: Hydrocephalus type: obstructive Qualified Code(s): G91.1 - Obstructive hydrocephalus - Referrals Referrals: Ciro Kenney MD, FAANS [Staff Physician] - Rambo Hilario MD [Primary Care Provider] - - Patient Instructions Additional Instructions: Discharge Instructions: You were seen in the emergency department following a fall. You were not found to have any injury, but your CT scan showed an abnormality called hydrocephalus. It is possible that this is the cause of your fall. You were seen by a neurosurgeon, Dr Kenney. You will need to make an appointment within the next week for follow up as you need evaluation for possible surgery in the future. The contact information for Dr Kenney is attached. Please proceed back to [facility] for continued detox management. Seek immediate medical care if you have difficulty walking, an abnormal gait, loss of balance, severe headache, confusion, excessive sleepiness, incontinence , or any other medical problem. - Post Discharge Activity
[2019-02-27] MEDS ORDERED: SODIUM CHLORIDE 0.9% 500 ML INFUS.BAG IV ONE (15:02)
[2019-02-27 15:33] LABS: BASO % 1.2 % (0-2.0); EOS % 2.7 % (0-4.5); HEMATOCRIT 41.2 % (35.4-49); HEMOGLOBIN 14.7 GM/dL (11.7-16.9); LYMPH % 46.4 % (8-40); MCH 32.9 pg (25.7-33.7); MCHC 35.7 g/dl (32.0-35.9); MEAN CELL VOLUME 92.3 fl (80-96); MEAN PLT VOLUME 9.1 fl (7.5-11.1); MONO % 9.3 % (3.8-10.2); NEUT % 40.4 % (42.8-82.8); PLATELET COUNT 258 K/MM3 (134-434); RBC 4.46 M/mm3 (4.00-5.60); RDW 13.5 % (11.9-15.9); WHITE BLOOD COUNT 8.4 K/mm3 (4.0-10.0)
[2019-02-27 16:01] LABS: ALBUMIN 3.6 g/dl (3.4-5.0); ALK PHOS 102 U/L (45-117); ANION GAP 6 MMOL/L (8-16); BILIRUBIN,TOTAL 0.6 mg/dL (0.2-1); BLOOD UREA NITROGEN 24.1 mg/dL (7-18); CALCIUM 9.5 mg/dL (8.5-10.1); CHLORIDE 109 mmol/L (98-107); CO2 27 mmol/L (21-32); CREATININE 1.6 mg/dL (0.55-1.3); GLUCOSE,RANDOM 63 mg/dL (74-106); POTASSIUM 3.7 mmol/L (3.5-5.1); SGOT/AST 15 U/L (15-37); SGPT/ALT 19 U/L (13-61); SODIUM 142 mmol/L (136-145); TOT PROT 7.1 g/dl (6.4-8.2)
--- NOTE | 2019-02-27 16:24 | PDOC ---
Documentation entered by Regina Ly SCRIBE, acting as scribe for Selina Ac MD. Selina Ac MD: This documentation has been prepared by the Aliyah blackwood Brenda, SCRIBE, under my direction and personally reviewed by me in its entirety. I confirm that the documentation accurately reflects all work, treatment, procedures, and medical decision making performed by me. Attending Attestation - Resident Resident Name: Wood Armstrong - ED Attending Attestation I have performed the following: I have examined & evaluated the patient, The case was reviewed & discussed with the resident, I agree w/resident's findings & plan, Exceptions are as noted - HPI HPI: 02/27/19 16:02 The patient is a 54 year old male, with a significant PMH of IDDM, HTN. HLD, polysubstance abuse (ETOH, PCP (inhalation), and cocaine (inhalation), who presents to the emergency department from [facility] s/p a fall which occurred yesterday at 8:00pm at [facility]. The patient reports being admitted into [facility] yesterday (02/26/19), for cocaine use. The patient denies chest pain, shortness of breath, headache and dizziness. Denies fever, chills, nausea, vomiting, diarrhea and constipation. Denies dysuria, frequency, urgency and hematuria. Allergies: NKA Past surgical history: Appendectomy in 1985 Social history: polysubstance abuse (ETOH, PCP (inhalation), and cocaine inhalation PCP: Rambo Hilario - Physicial Exam PE: 02/27/19 16:02 GENERAL: The patient is in no acute distress. HEAD: Normal with no signs of trauma. EYES: PERRLA, EOMI, sclera anicteric, conjunctiva clear. ENT: Ears normal, nares patent, oropharynx clear without exudates. Moist mucous membranes. NECK: Normal range of motion, supple without lymphadenopathy, JVD, or masses. LUNGS: Breath sounds equal, clear to auscultation bilaterally. No wheezes, and no crackles. HEART:Regular rate and rhythm, normal S1 and S2 without murmur, rub or gallop. ABDOMEN: Soft, nontender, normoactive bowel sounds. No guarding, no rebound. No masses palpable. EXTREMITIES: Normal range of motion, no edema. No clubbing or cyanosis. No erythema, or tenderness. NEUROLOGICAL: Cranial nerves II through XII grossly intact. Normal speech. No focal neurological deficits. MUSCULOSKELETAL: Back non-tender to palpation, no CVA tenderness SKIN: Warm, Dry, normal turgor, no rashes or lesions noted. - Medical Decision Making 02/27/19 15:31 54 yo M presenting from [facility] s/p mechanical fall Pt noted to be hyperglycemic Pt has no complaints at this time Will do: Labs CT head IVF Insulin Re Assess D/c back to [facility] 02/27/19 16:24 Laboratory Tests 02/27/19 02/27/19 15:24 15:24 WBC 8.4 Hgb 14.7 Hct 41.2 Plt Count 258 BUN 24.1 H Creatinine 1.6 H Random Glucose 63 L Creatine Kinase 329 H Troponin I < 0.02 02/27/19 18:17 CT: Mild distention of the lateral, third, and fourth ventricles is noted No periventricular interstitial edema is visualized No infarct No ICH 02/27/19 18:[address] Kenney He will see this patient Likely discharge to [facility]
[2019-02-27 19:12] VITALS: PULSE 89; TEMP 98
--- NOTE | 2019-02-27 19:12 | PDOC ---
*Physical Exam - Vital Signs Last Vital Signs Temp Pulse Resp BP Pulse Ox 98.5 F 88 18 103/69 95 02/27/19 14:10 02/27/19 14:10 02/27/19 14:10 02/27/19 14:10 02/27/19 14:10 ED Treatment Course - LABORATORY CBC & Chemistry Diagram: 02/27/19 15:24 02/27/19 15:24 - ADDITIONAL ORDERS Additional order review: Laboratory Results 02/27/19 15:24 Sodium 142 Potassium 3.7 Chloride 109 H Carbon Dioxide 27 Anion Gap 6 L BUN 24.1 H Creatinine 1.6 H Est GFR (CKD-EPI)AfAm 55.39 Est GFR (CKD-EPI)NonAf 47.79 Random Glucose 63 L Calcium 9.5 Total Bilirubin 0.6 AST 15 ALT 19 Alkaline Phosphatase 102 Creatine Kinase 329 H Creatine Kinase Index 1.0 CK-MB (CK-2) 3.4 Troponin I < 0.02 Total Protein 7.1 Albumin 3.6 02/27/19 15:24 RBC 4.46 MCV 92.3 MCHC 35.7 RDW 13.5 MPV 9.1 D Neutrophils % 40.4 L Lymphocytes % 46.4 H Monocytes % 9.3 Eosinophils % 2.7 Basophils % 1.2 - Medications Given in the ED: ED Medications Discontinued Medications Generic Name Dose Route Start Last Admin Trade Name Freq PRN Reason Stop Dose Admin Sodium Chloride 1,000 ml 02/27/19 15:02 02/27/19 15:32 Normal Saline - IV 02/27/19 15:03 1,000 ml ONCE ONE Administration Medical Decision Making - Medical Decision Making 02/27/19 19:08 Sign out received from Dr Armstrong Angelo Stevens is a 54yo man with a history of HTN, HLD, IDDM, and polysubstance (ETOH, PCP, cocaine) who was sent to the ED from detox due to an unwitnessed fall yesterday. The pt denied any LOC or head injry. ED course so far notable for: - Labs unremarkable - EKG w/o acute changes - CT head completed. Indicates obstructive communicating hydrocephalus. Dr Kenney called by Dr Armstrong, will give recommendations for Mr Stevens. Per Dr Armstrong, likely to need outpatient follow up. Dispo pending official recs. 02/27/19 22:33 - Seen by Dr Kenney. May need elective workup for shunt placement, but no acute intervention is needed - Will d/c back to detox Discussed with Dr Vargas. Nessa Mann PGY2 *DC/Admit/Observation/Transfer Diagnosis at time of Disposition: Hydrocephalus Qualifiers: Hydrocephalus type: obstructive Qualified Code(s): G91.1 - Obstructive hydrocephalus - Discharge Dispostion Disposition: HOME Condition at time of disposition: Stable Decision to Admit order: No - Referrals Referrals: Rambo Hilario MD [Primary Care Provider] - Ciro Kenney MD, FAANS [Staff Physician] - - Patient Instructions Additional Instructions: Discharge Instructions: You were seen in the emergency department following a fall. You were not found to have any injury, but your CT scan showed an abnormality called hydrocephalus. It is possible that this is the cause of your fall. You were seen by a neurosurgeon, Dr Kenney. You will need to make an appointment within the next week for follow up as you need evaluation for possible surgery in the future. The contact information for Dr Kenney is attached. Please proceed back to [facility] for continued detox management. Seek immediate medical care if you have difficulty walking, an abnormal gait, loss of balance, severe headache, confusion, excessive sleepiness, incontinence , or any other medical problem. - Post Discharge Activity
[2019-02-27 23:35] VITALS: BP 116/71
--- NOTE | 2019-02-28 15:20 | EKG ---
Test Reason : Blood Pressure : / mmHG Vent. Rate : 079 BPM Atrial Rate : 079 BPM P-R Int : 134 ms QRS Dur : 080 ms QT Int : 380 ms P-R-T Axes : 052 -56 043 degrees QTc Int : 435 ms SINUS RHYTHM WITH PREMATURE ATRIAL COMPLEXES LEFT ANTERIOR FASCICULAR BLOCK CANNOT RULE OUT INFERIOR INFARCT (MASKED BY FASCICULAR BLOCK?) , AGE UNDETERMINED ABNORMAL ECG WHEN COMPARED WITH ECG OF 22-MAY-2018 17:59, PREMATURE ATRIAL COMPLEXES ARE NOW PRESENT QT HAS LENGTHENED Confirmed by IRMA JOSHI MD ([id number]) on 02/28/2019 3:19:24 PM Referred By: Confirmed By:IRMA JOSHI MD
== END 2019-02-28 00:21 | disposition short-term general hospital (02) ==
LOC: JER 13:40
PROC: 3E0337Z Introduction of Electrolytic and Water Balance Substance into Peripheral Vein, Percutaneous Approach (ICD-10-PCS; principal; 2019-02-27)
DX: G91.1 Obstructive hydrocephalus (principal); E11.9 Type 2 diabetes mellitus without complications; F19.10 Other psychoactive substance abuse, uncomplicated; I10 Essential (primary) hypertension; Z79.4 Long term (current) use of insulin
CPT/HCPCS: 36415; 70450-TC; 71046-TC-FY; 80053; 82550; 82553; 82962; 84484; 85025; 93005; 93010; 99284-25

== ENCOUNTER 2019-03-21 10:44 | Inpatient (IN) | payer OTHER | END 2019-03-26 11:53 | disposition other institution (70) | LOC: YASAS 10:44 → Y3N 13:42 ==

== ENCOUNTER 2019-03-26 12:08 | Inpatient (IN) | payer OTHER ==
[2019-03-26] MEDS ORDERED: MAG HYDROX/AL HYDROX/SIMETH 30 ML UNIT-DOSE CUP PO PRN (15:49)
[2019-03-26] MEDS ORDERED: MENTHOL/PHENOL 1 EACH UD MM PRN (15:49)
[2019-03-26] MEDS ORDERED: guaiFENesin 200 MG/10 ML 10 ML UNIT-DOSE CUPS PO PRN (15:49)
[2019-03-26] MEDS ORDERED: LOPERAMIDE HCL 2 MG CAPSULE PO PRN (15:49)
[2019-03-26] MEDS ORDERED: MAGNESIUM CITRATE 300 ML BOTTLE PO PRN (15:49)
[2019-03-26] MEDS ORDERED: P-EPHED 60MG/TRIPROLIDI 2.5MG TABLET PO PRN (15:49)
[2019-03-26] MEDS ORDERED: MAGNESIUM HYDROX 2400MG/30ML ORAL SUSPENSION 30 ML CUP PO PRN (15:49)
--- NOTE | 2019-03-26 15:49 | HP ---
[facility] Rehab Assess/Revision - Admission History Admitted to Rehab from: [facility] Date of Admission to Rehab: 03/26/19 - Findings Detox History & Physical reviewed: Yes Concur with findings: Yes Comments/Additional Findings: transferred from detox to rehab admission as per protocol Inpatient Rehab Admission - Rehab Decision to Admit Inpatient rehab admission?: Yes - Initial Determination Are CD services needed?: Yes Free of communicable disease: Yes Not in need of hospitalization: Yes - Rehab Admission Criteria Previous failed treatment: Yes Poor recovery environment: Yes Comorbidities: Yes Lacks judgement: No Patient is meeting Inpatient Rehab admission criteria:: Yes
[2019-03-26] MEDS: INSULIN (NOVOLOG) ASPART 100 UNITS/ML 10ML VIAL SQ SCH (17:11)
[2019-03-26] MEDS: FLUOCINONIDE 0.05% CREAM (15 GM TUBE) TP SCH (21:43)
[2019-03-26] MEDS: diphenhydrAMINE HCL 50 MG CAPSULE PO SCH (21:43)
[2019-03-26] MEDS: THIAMINE HCL 100 MG TABLET (FP) PO SCH (21:44)
[2019-03-26] MEDS: CALCIUM 500MG/VIT-D 200 UNITS COMBO TABLET (FP) PO SCH (21:44)
[2019-03-26] MEDS: GABAPENTIN 300 MG CAPSULE (FP) PO SCH (21:44)
[2019-03-26] MEDS: ATORVASTATIN CA 40 MG TABLET (FP) PO SCH (21:45)
[2019-03-26] MEDS: INSULIN (LEVEMIR) 100 UNITS/ML UNITS SQ SCH (22:11)
[2019-03-27] MEDS: INSULIN (NOVOLOG) ASPART 100 UNITS/ML 10ML VIAL SQ SCH (07:40)
[2019-03-27] MEDS: ASPIRIN 81 MG CHEWABLE TABLETS PO SCH (09:02)
[2019-03-27] MEDS: PRENATAL VITAMINS W/ FOLIC ACID TABLET (FP) PO SCH (09:03)
[2019-03-27] MEDS: ENALAPRIL MALEATE 2.5 MG TABLET (FP) PO SCH (09:03)
[2019-03-27] MEDS: CALCIUM 500MG/VIT-D 200 UNITS COMBO TABLET (FP) PO SCH ×2 (09:03→21:36)
[2019-03-27] MEDS: GABAPENTIN 300 MG CAPSULE (FP) PO SCH ×2 (09:03→21:35)
[2019-03-27] MEDS: FLUOCINONIDE 0.05% CREAM (15 GM TUBE) TP SCH ×2 (10:04→21:41)
--- NOTE | 2019-03-27 11:01 | PN ---
[facility] Progress Note Note: PT states he was doing squats, he now has pain of groin- no swelling, mostly pain- warm compresses, flexeril Diabetic neuropathy- with pain of feet- on Gabapentin, wear own shoes DM- will change to SS insulin coverage, levemir BID c/o jock itch and toenail fungus- had been on medications prior to admission here- reconciled meds
[2019-03-27] MEDS ORDERED: INSULIN (NOVOLOG) ASPART 100 UNITS/ML 10ML VIAL ONE (11:59)
[2019-03-27] MEDS ORDERED: INSULIN (LEVEMIR) 100 UNITS/ML UNITS SQ ONE (12:01)
[2019-03-27] MEDS: INSULIN SLIDING SCALE (NOVOLOG) 1 VIAL SQ SCH ×3 (12:03→21:44)
[2019-03-27] MEDS: INSULIN (LEVEMIR) 100 UNITS/ML UNITS SQ SCH ×2 (12:03→21:34)
[2019-03-27] MEDS: CLOTRIMAZOLE 1% 10 ML TOPICAL SOLUTION TP SCH (12:09)
[2019-03-27] MEDS: CYCLOBENZAPRINE HCL 5 MG TABLET PO PRN (18:35)
[2019-03-27] MEDS: diphenhydrAMINE HCL 50 MG CAPSULE PO SCH (21:35)
[2019-03-27] MEDS: THIAMINE HCL 100 MG TABLET (FP) PO SCH (21:35)
[2019-03-27] MEDS: ATORVASTATIN CA 40 MG TABLET (FP) PO SCH (21:38)
[2019-03-27] MEDS: CLOTRIMAZOLE 1% CREAM 15 GM TUBE TP SCH (21:39)
[2019-03-28] MEDS: CYCLOBENZAPRINE HCL 5 MG TABLET PO PRN ×2 (06:38→15:23)
[2019-03-28] MEDS: ACETAMINOPHEN 325 MG TABLET (FP) PO PRN ×2 (06:38→18:44)
[2019-03-28] MEDS ORDERED: INSULIN (NOVOLOG) ASPART 100 UNITS/ML 10ML VIAL ONE ×2 (07:03→11:42)
[2019-03-28] MEDS: INSULIN SLIDING SCALE (NOVOLOG) 1 VIAL SQ SCH ×4 (07:56→21:47)
[2019-03-28] MEDS: PRENATAL VITAMINS W/ FOLIC ACID TABLET (FP) PO SCH (10:03)
[2019-03-28] MEDS: ASPIRIN 81 MG CHEWABLE TABLETS PO SCH (10:03)
[2019-03-28] MEDS: CALCIUM 500MG/VIT-D 200 UNITS COMBO TABLET (FP) PO SCH ×2 (10:03→21:50)
[2019-03-28] MEDS: GABAPENTIN 300 MG CAPSULE (FP) PO SCH ×2 (10:03→21:49)
[2019-03-28] MEDS: CLOTRIMAZOLE 1% CREAM 15 GM TUBE TP SCH ×2 (10:03→21:50)
[2019-03-28] MEDS: CLOTRIMAZOLE 1% 10 ML TOPICAL SOLUTION TP SCH (10:05)
[2019-03-28] MEDS: FLUOCINONIDE 0.05% CREAM (15 GM TUBE) TP SCH ×2 (10:05→21:49)
[2019-03-28] MEDS: INSULIN (LEVEMIR) 100 UNITS/ML UNITS SQ SCH ×2 (10:06→21:47)
[2019-03-28] MEDS: ENALAPRIL MALEATE 2.5 MG TABLET (FP) PO SCH (10:09)
[2019-03-28] MEDS: NICOTINE POLACRILEX 4 MG GUM BUC PRN (15:24)
[2019-03-28] MEDS: diphenhydrAMINE HCL 50 MG CAPSULE PO SCH (21:47)
[2019-03-28] MEDS: ATORVASTATIN CA 40 MG TABLET (FP) PO SCH (21:50)
[2019-03-28] MEDS: THIAMINE HCL 100 MG TABLET (FP) PO SCH (21:50)
[2019-03-29] MEDS ORDERED: INSULIN (NOVOLOG) ASPART 100 UNITS/ML 10ML VIAL ONE ×3 (06:52→16:29)
[2019-03-29] MEDS: INSULIN SLIDING SCALE (NOVOLOG) 1 VIAL SQ SCH ×4 (07:26→21:39)
[2019-03-29] MEDS: CYCLOBENZAPRINE HCL 5 MG TABLET PO PRN ×2 (07:32→16:30)
[2019-03-29] MEDS: CALCIUM 500MG/VIT-D 200 UNITS COMBO TABLET (FP) PO SCH ×2 (10:24→21:45)
[2019-03-29] MEDS: ENALAPRIL MALEATE 2.5 MG TABLET (FP) PO SCH (10:24)
[2019-03-29] MEDS: CLOTRIMAZOLE 1% 10 ML TOPICAL SOLUTION TP SCH (10:24)
[2019-03-29] MEDS: PRENATAL VITAMINS W/ FOLIC ACID TABLET (FP) PO SCH (10:24)
[2019-03-29] MEDS: ASPIRIN 81 MG CHEWABLE TABLETS PO SCH (10:24)
[2019-03-29] MEDS: GABAPENTIN 300 MG CAPSULE (FP) PO SCH ×2 (10:24→21:41)
[2019-03-29] MEDS: CLOTRIMAZOLE 1% CREAM 15 GM TUBE TP SCH ×2 (10:25→21:44)
[2019-03-29] MEDS: FLUOCINONIDE 0.05% CREAM (15 GM TUBE) TP SCH ×2 (10:25→21:44)
[2019-03-29] MEDS: ACETAMINOPHEN 325 MG TABLET (FP) PO PRN (10:26)
[2019-03-29] MEDS: INSULIN (LEVEMIR) 100 UNITS/ML UNITS SQ SCH ×2 (11:55→21:40)
[2019-03-29] MEDS ORDERED: INSULIN (LEVEMIR) 100 UNITS/ML UNITS SQ ONE (11:58)
[2019-03-29] MEDS: diphenhydrAMINE HCL 50 MG CAPSULE PO SCH (21:42)
[2019-03-29] MEDS: ATORVASTATIN CA 40 MG TABLET (FP) PO SCH (21:44)
[2019-03-29] MEDS: NICOTINE POLACRILEX 4 MG GUM BUC PRN (21:45)
[2019-03-29] MEDS: MELATONIN 5 MG TABLETS PO PRN (21:45)
[2019-03-29] MEDS: THIAMINE HCL 100 MG TABLET (FP) PO SCH (21:45)
[2019-03-30] MEDS ORDERED: INSULIN (NOVOLOG) ASPART 100 UNITS/ML 10ML VIAL SQ ONE (02:29)
--- NOTE | 2019-03-30 02:32 | PN ---
[facility] Progress Note Note: Patient complained of not feeling well. Blood sugar now is B/S 358mg/dl. Vital Signs Temperature 98.8 F 03/29/19 06:30 Pulse Rate 113 H 03/29/19 09:30 Respiratory Rate 20 03/30/19 00:30 Blood Pressure 120/76 03/29/19 09:30 O2 Sat by Pulse Oximetry (%) Action: Novolog 6 unit SQ stat ordered
[2019-03-30] MEDS: CYCLOBENZAPRINE HCL 5 MG TABLET PO PRN ×3 (07:26→21:55)
[2019-03-30] MEDS ORDERED: INSULIN (NOVOLOG) ASPART 100 UNITS/ML 10ML VIAL ONE ×4 (07:27→21:55)
[2019-03-30] MEDS: NICOTINE POLACRILEX 4 MG GUM BUC PRN (07:28)
[2019-03-30] MEDS: INSULIN SLIDING SCALE (NOVOLOG) 1 VIAL SQ SCH ×4 (07:32→21:51)
[2019-03-30] MEDS: ENALAPRIL MALEATE 2.5 MG TABLET (FP) PO SCH (10:16)
[2019-03-30] MEDS: ASPIRIN 81 MG CHEWABLE TABLETS PO SCH (10:16)
[2019-03-30] MEDS: GABAPENTIN 300 MG CAPSULE (FP) PO SCH ×2 (10:16→21:50)
[2019-03-30] MEDS: PRENATAL VITAMINS W/ FOLIC ACID TABLET (FP) PO SCH (10:16)
[2019-03-30] MEDS: CALCIUM 500MG/VIT-D 200 UNITS COMBO TABLET (FP) PO SCH ×2 (10:16→21:51)
[2019-03-30] MEDS: CLOTRIMAZOLE 1% CREAM 15 GM TUBE TP SCH ×2 (10:18→21:53)
[2019-03-30] MEDS: CLOTRIMAZOLE 1% 10 ML TOPICAL SOLUTION TP SCH (10:19)
[2019-03-30] MEDS: FLUOCINONIDE 0.05% CREAM (15 GM TUBE) TP SCH ×2 (10:19→21:53)
[2019-03-30] MEDS ORDERED: INSULIN (LEVEMIR) 100 UNITS/ML UNITS SQ ONE (11:19)
[2019-03-30] MEDS: INSULIN (LEVEMIR) 100 UNITS/ML UNITS SQ SCH ×2 (11:37→21:52)
[2019-03-30] MEDS: THIAMINE HCL 100 MG TABLET (FP) PO SCH (21:47)
[2019-03-30] MEDS: ATORVASTATIN CA 40 MG TABLET (FP) PO SCH (21:52)
[2019-03-30] MEDS: diphenhydrAMINE HCL 50 MG CAPSULE PO SCH (21:53)
[2019-03-31] MEDS: CYCLOBENZAPRINE HCL 5 MG TABLET PO PRN ×2 (06:18→21:12)
[2019-03-31] MEDS: INSULIN SLIDING SCALE (NOVOLOG) 1 VIAL SQ SCH ×4 (06:47→21:10)
[2019-03-31] MEDS ORDERED: INSULIN (NOVOLOG) ASPART 100 UNITS/ML 10ML VIAL ONE ×2 (06:47→11:43)
[2019-03-31] MEDS: ASPIRIN 81 MG CHEWABLE TABLETS PO SCH (09:43)
[2019-03-31] MEDS: PRENATAL VITAMINS W/ FOLIC ACID TABLET (FP) PO SCH (09:43)
[2019-03-31] MEDS: GABAPENTIN 300 MG CAPSULE (FP) PO SCH ×2 (09:43→21:10)
[2019-03-31] MEDS: FLUOCINONIDE 0.05% CREAM (15 GM TUBE) TP SCH ×2 (09:44→21:13)
[2019-03-31] MEDS: CLOTRIMAZOLE 1% CREAM 15 GM TUBE TP SCH ×2 (09:44→21:09)
[2019-03-31] MEDS: CALCIUM 500MG/VIT-D 200 UNITS COMBO TABLET (FP) PO SCH ×2 (09:45→21:11)
[2019-03-31] MEDS: CLOTRIMAZOLE 1% 10 ML TOPICAL SOLUTION TP SCH (09:45)
[2019-03-31] MEDS: ENALAPRIL MALEATE 2.5 MG TABLET (FP) PO SCH (10:04)
[2019-03-31] MEDS ORDERED: INSULIN (LEVEMIR) 100 UNITS/ML UNITS SQ ONE (11:44)
[2019-03-31] MEDS: INSULIN (LEVEMIR) 100 UNITS/ML UNITS SQ SCH ×2 (11:46→21:08)
[2019-03-31] MEDS: NICOTINE POLACRILEX 4 MG GUM BUC PRN (15:26)
[2019-03-31] MEDS: diphenhydrAMINE HCL 50 MG CAPSULE PO SCH (21:08)
[2019-03-31] MEDS: THIAMINE HCL 100 MG TABLET (FP) PO SCH (21:11)
[2019-03-31] MEDS: ATORVASTATIN CA 40 MG TABLET (FP) PO SCH (21:13)
[2019-04-01] MEDS: NICOTINE POLACRILEX 4 MG GUM BUC PRN ×3 (06:47→20:24)
[2019-04-01] MEDS: CYCLOBENZAPRINE HCL 5 MG TABLET PO PRN ×2 (06:47→21:21)
[2019-04-01] MEDS ORDERED: INSULIN (NOVOLOG) ASPART 100 UNITS/ML 10ML VIAL ONE ×2 (07:09→12:06)
[2019-04-01] MEDS: INSULIN SLIDING SCALE (NOVOLOG) 1 VIAL SQ SCH ×4 (07:10→21:19)
[2019-04-01] MEDS: ASPIRIN 81 MG CHEWABLE TABLETS PO SCH (09:46)
[2019-04-01] MEDS: GABAPENTIN 300 MG CAPSULE (FP) PO SCH ×2 (09:46→21:18)
[2019-04-01] MEDS: CLOTRIMAZOLE 1% CREAM 15 GM TUBE TP SCH ×2 (09:47→21:19)
[2019-04-01] MEDS: FLUOCINONIDE 0.05% CREAM (15 GM TUBE) TP SCH ×2 (09:48→21:19)
[2019-04-01] MEDS: CALCIUM 500MG/VIT-D 200 UNITS COMBO TABLET (FP) PO SCH ×2 (09:49→21:18)
[2019-04-01] MEDS: CLOTRIMAZOLE 1% 10 ML TOPICAL SOLUTION TP SCH (09:49)
[2019-04-01] MEDS: PRENATAL VITAMINS W/ FOLIC ACID TABLET (FP) PO SCH (09:50)
[2019-04-01] MEDS: INSULIN (LEVEMIR) 100 UNITS/ML UNITS SQ SCH ×2 (09:52→21:18)
[2019-04-01] MEDS ORDERED: INSULIN (LEVEMIR) 100 UNITS/ML UNITS SQ ONE (09:54)
[2019-04-01] MEDS: ENALAPRIL MALEATE 2.5 MG TABLET (FP) PO SCH (10:45)
[2019-04-01] MEDS: diphenhydrAMINE HCL 50 MG CAPSULE PO SCH (21:18)
[2019-04-01] MEDS: ATORVASTATIN CA 40 MG TABLET (FP) PO SCH (21:18)
[2019-04-01] MEDS: THIAMINE HCL 100 MG TABLET (FP) PO SCH (21:18)
[2019-04-02] MEDS: CYCLOBENZAPRINE HCL 5 MG TABLET PO PRN ×2 (06:15→12:39)
[2019-04-02] MEDS: NICOTINE POLACRILEX 4 MG GUM BUC PRN ×4 (06:17→21:47)
[2019-04-02] MEDS ORDERED: INSULIN (NOVOLOG) ASPART 100 UNITS/ML 10ML VIAL ONE ×2 (06:40→12:35)
[2019-04-02] MEDS: INSULIN SLIDING SCALE (NOVOLOG) 1 VIAL SQ SCH ×4 (06:42→21:48)
[2019-04-02] MEDS: CLOTRIMAZOLE 1% 10 ML TOPICAL SOLUTION TP SCH (09:09)
[2019-04-02] MEDS: ACETAMINOPHEN 325 MG TABLET (FP) PO PRN ×4 (09:15→22:27)
--- NOTE | 2019-04-02 10:11 | PN ---
S Progress Note Note: Pt requesting foot powder-tinactin powder, pt has cream and solution but this does not work Foot powder ordered
[2019-04-02] MEDS: PRENATAL VITAMINS W/ FOLIC ACID TABLET (FP) PO SCH (10:27)
[2019-04-02] MEDS: GABAPENTIN 300 MG CAPSULE (FP) PO SCH ×2 (10:27→21:46)
[2019-04-02] MEDS: CALCIUM 500MG/VIT-D 200 UNITS COMBO TABLET (FP) PO SCH ×2 (10:27→21:46)
[2019-04-02] MEDS: ASPIRIN 81 MG CHEWABLE TABLETS PO SCH (10:27)
[2019-04-02] MEDS: ENALAPRIL MALEATE 2.5 MG TABLET (FP) PO SCH (10:28)
[2019-04-02] MEDS: CLOTRIMAZOLE 1% CREAM 15 GM TUBE TP SCH ×2 (10:29→21:47)
[2019-04-02] MEDS: FLUOCINONIDE 0.05% CREAM (15 GM TUBE) TP SCH ×2 (10:30→21:47)
[2019-04-02] MEDS: INSULIN (LEVEMIR) 100 UNITS/ML UNITS SQ SCH ×2 (11:41→21:48)
[2019-04-02] MEDS: diphenhydrAMINE HCL 50 MG CAPSULE PO SCH (21:41)
[2019-04-02] MEDS: ATORVASTATIN CA 40 MG TABLET (FP) PO SCH (21:46)
[2019-04-02] MEDS: THIAMINE HCL 100 MG TABLET (FP) PO SCH (21:46)
[2019-04-03] MEDS ORDERED: INSULIN SLIDING SCALE (NOVOLOG) 1 VIAL SQ ONE (06:45)
[2019-04-03] MEDS: NICOTINE POLACRILEX 4 MG GUM BUC PRN ×4 (06:51→22:27)
[2019-04-03] MEDS: INSULIN SLIDING SCALE (NOVOLOG) 1 VIAL SQ SCH ×4 (07:02→21:47)
[2019-04-03] MEDS: CYCLOBENZAPRINE HCL 5 MG TABLET PO PRN ×3 (07:13→21:41)
[2019-04-03] MEDS: ASPIRIN 81 MG CHEWABLE TABLETS PO SCH (10:24)
[2019-04-03] MEDS: GABAPENTIN 300 MG CAPSULE (FP) PO SCH ×2 (10:25→21:38)
[2019-04-03] MEDS: CALCIUM 500MG/VIT-D 200 UNITS COMBO TABLET (FP) PO SCH ×2 (10:25→21:39)
[2019-04-03] MEDS: ENALAPRIL MALEATE 2.5 MG TABLET (FP) PO SCH (10:25)
[2019-04-03] MEDS: FLUOCINONIDE 0.05% CREAM (15 GM TUBE) TP SCH ×2 (10:26→21:39)
[2019-04-03] MEDS: CLOTRIMAZOLE 1% CREAM 15 GM TUBE TP SCH ×2 (10:26→21:48)
[2019-04-03] MEDS: PRENATAL VITAMINS W/ FOLIC ACID TABLET (FP) PO SCH (10:26)
[2019-04-03] MEDS: CLOTRIMAZOLE 1% 10 ML TOPICAL SOLUTION TP SCH (10:26)
[2019-04-03] MEDS: TOLNAFTATE 1% POWDER 45 GM POW TP PRN ×2 (10:28→21:38)
[2019-04-03] MEDS: ACETAMINOPHEN 325 MG TABLET (FP) PO PRN ×2 (10:30→21:41)
--- NOTE | 2019-04-03 11:31 | PN ---
[facility] Progress Note Note: Vital Signs Temperature 97.6 F 04/03/19 06:54 Pulse Rate 111 H 04/03/19 09:30 Respiratory Rate 18 04/03/19 09:30 Blood Pressure 106/68 04/03/19 09:30 O2 Sat by Pulse Oximetry (%) Laboratory Last Values POC Glucometer 238 UNITS (80-120) 04/03/19 06:22 labs reviewed, patient stable, continue current dose of levemir 20 units BID and novolog sliding scale for coverage. continue to monitor
[2019-04-03] MEDS ORDERED: INSULIN (NOVOLOG) ASPART 100 UNITS/ML 10ML VIAL ONE (11:44)
[2019-04-03] MEDS: INSULIN (LEVEMIR) 100 UNITS/ML UNITS SQ SCH ×2 (11:45→21:48)
[2019-04-03] MEDS: diphenhydrAMINE HCL 50 MG CAPSULE PO SCH (21:39)
[2019-04-03] MEDS: ATORVASTATIN CA 40 MG TABLET (FP) PO SCH (21:39)
[2019-04-03] MEDS: MELATONIN 5 MG TABLETS PO PRN (21:48)
[2019-04-03] MEDS: THIAMINE HCL 100 MG TABLET (FP) PO SCH (22:04)
[2019-04-04] MEDS: NICOTINE POLACRILEX 4 MG GUM BUC PRN ×3 (06:39→17:05)
[2019-04-04] MEDS: CYCLOBENZAPRINE HCL 5 MG TABLET PO PRN ×3 (06:39→21:51)
[2019-04-04] MEDS: ACETAMINOPHEN 325 MG TABLET (FP) PO PRN ×3 (06:39→21:50)
[2019-04-04] MEDS: INSULIN SLIDING SCALE (NOVOLOG) 1 VIAL SQ SCH ×4 (07:34→21:55)
[2019-04-04] MEDS: ASPIRIN 81 MG CHEWABLE TABLETS PO SCH (09:39)
[2019-04-04] MEDS: CLOTRIMAZOLE 1% CREAM 15 GM TUBE TP SCH ×2 (09:40→22:04)
[2019-04-04] MEDS: FLUOCINONIDE 0.05% CREAM (15 GM TUBE) TP SCH ×2 (09:40→22:05)
[2019-04-04] MEDS: TOLNAFTATE 1% POWDER 45 GM POW TP PRN (09:41)
[2019-04-04] MEDS: INSULIN (LEVEMIR) 100 UNITS/ML UNITS SQ SCH ×2 (09:41→21:53)
[2019-04-04] MEDS: PRENATAL VITAMINS W/ FOLIC ACID TABLET (FP) PO SCH (09:42)
[2019-04-04] MEDS: GABAPENTIN 300 MG CAPSULE (FP) PO SCH ×2 (09:42→21:47)
[2019-04-04] MEDS: CALCIUM 500MG/VIT-D 200 UNITS COMBO TABLET (FP) PO SCH ×2 (09:42→21:48)
[2019-04-04] MEDS: ENALAPRIL MALEATE 2.5 MG TABLET (FP) PO SCH (09:43)
[2019-04-04] MEDS: CLOTRIMAZOLE 1% 10 ML TOPICAL SOLUTION TP SCH (10:17)
[2019-04-04] MEDS: THIAMINE HCL 100 MG TABLET (FP) PO SCH (21:47)
[2019-04-04] MEDS: ATORVASTATIN CA 40 MG TABLET (FP) PO SCH (21:48)
[2019-04-04] MEDS: MELATONIN 5 MG TABLETS PO PRN (21:49)
[2019-04-04] MEDS: diphenhydrAMINE HCL 50 MG CAPSULE PO SCH (21:49)
[2019-04-05] MEDS ORDERED: INSULIN (LEVEMIR) 100 UNITS/ML UNITS SQ SCH (06:00)
[2019-04-05] MEDS: ACETAMINOPHEN 325 MG TABLET (FP) PO PRN ×3 (06:55→20:30)
[2019-04-05] MEDS: INSULIN (LEVEMIR) 100 UNITS/ML UNITS SQ SCH ×2 (06:55→21:15)
[2019-04-05] MEDS: CYCLOBENZAPRINE HCL 5 MG TABLET PO PRN ×2 (06:55→20:30)
[2019-04-05] MEDS: INSULIN SLIDING SCALE (NOVOLOG) 1 VIAL SQ SCH ×4 (06:56→21:15)
[2019-04-05] MEDS: FLUOCINONIDE 0.05% CREAM (15 GM TUBE) TP SCH ×2 (09:37→21:12)
[2019-04-05] MEDS: ASPIRIN 81 MG CHEWABLE TABLETS PO SCH (09:37)
[2019-04-05] MEDS: PRENATAL VITAMINS W/ FOLIC ACID TABLET (FP) PO SCH (09:37)
[2019-04-05] MEDS: CLOTRIMAZOLE 1% 10 ML TOPICAL SOLUTION TP SCH (09:37)
[2019-04-05] MEDS: GABAPENTIN 300 MG CAPSULE (FP) PO SCH ×2 (09:37→21:12)
[2019-04-05] MEDS: CALCIUM 500MG/VIT-D 200 UNITS COMBO TABLET (FP) PO SCH ×2 (09:38→21:13)
[2019-04-05] MEDS: CLOTRIMAZOLE 1% CREAM 15 GM TUBE TP SCH ×2 (09:38→21:22)
[2019-04-05] MEDS: ENALAPRIL MALEATE 2.5 MG TABLET (FP) PO SCH (09:39)
[2019-04-05] MEDS ORDERED: INSULIN (NOVOLOG) ASPART 100 UNITS/ML 10ML VIAL ONE (11:54)
[2019-04-05] MEDS: THIAMINE HCL 100 MG TABLET (FP) PO SCH (21:11)
[2019-04-05] MEDS: MELATONIN 5 MG TABLETS PO PRN (21:12)
[2019-04-05] MEDS: ATORVASTATIN CA 40 MG TABLET (FP) PO SCH (21:12)
[2019-04-05] MEDS: diphenhydrAMINE HCL 50 MG CAPSULE PO SCH (21:12)
[2019-04-06] MEDS: INSULIN (LEVEMIR) 100 UNITS/ML UNITS SQ SCH ×2 (06:39→21:04)
[2019-04-06] MEDS: INSULIN SLIDING SCALE (NOVOLOG) 1 VIAL SQ SCH ×4 (06:39→21:03)
[2019-04-06] MEDS ORDERED: INSULIN (NOVOLOG) ASPART 100 UNITS/ML 10ML VIAL ONE ×4 (06:44→21:03)
[2019-04-06] MEDS: ACETAMINOPHEN 325 MG TABLET (FP) PO PRN ×3 (07:08→19:53)
[2019-04-06] MEDS: CYCLOBENZAPRINE HCL 5 MG TABLET PO PRN ×2 (07:08→19:54)
[2019-04-06] MEDS: CLOTRIMAZOLE 1% CREAM 15 GM TUBE TP SCH ×2 (10:53→21:07)
[2019-04-06] MEDS: FLUOCINONIDE 0.05% CREAM (15 GM TUBE) TP SCH ×2 (10:54→21:07)
[2019-04-06] MEDS: CALCIUM 500MG/VIT-D 200 UNITS COMBO TABLET (FP) PO SCH ×2 (10:55→21:06)
[2019-04-06] MEDS: CLOTRIMAZOLE 1% 10 ML TOPICAL SOLUTION TP SCH (10:55)
[2019-04-06] MEDS: PRENATAL VITAMINS W/ FOLIC ACID TABLET (FP) PO SCH (10:55)
[2019-04-06] MEDS: ASPIRIN 81 MG CHEWABLE TABLETS PO SCH (10:55)
[2019-04-06] MEDS: GABAPENTIN 300 MG CAPSULE (FP) PO SCH ×2 (10:55→21:06)
[2019-04-06] MEDS: ENALAPRIL MALEATE 2.5 MG TABLET (FP) PO SCH (10:56)
[2019-04-06] MEDS: TOLNAFTATE 1% POWDER 45 GM POW TP PRN (10:57)
[2019-04-06] MEDS: THIAMINE HCL 100 MG TABLET (FP) PO SCH (21:06)
[2019-04-06] MEDS: diphenhydrAMINE HCL 50 MG CAPSULE PO SCH (21:06)
[2019-04-06] MEDS: ATORVASTATIN CA 40 MG TABLET (FP) PO SCH (21:07)
[2019-04-07] MEDS: INSULIN (LEVEMIR) 100 UNITS/ML UNITS SQ SCH ×2 (06:32→21:11)
[2019-04-07] MEDS: CYCLOBENZAPRINE HCL 5 MG TABLET PO PRN ×2 (06:32→15:30)
[2019-04-07] MEDS: ACETAMINOPHEN 325 MG TABLET (FP) PO PRN ×2 (06:32→21:13)
[2019-04-07] MEDS: INSULIN SLIDING SCALE (NOVOLOG) 1 VIAL SQ SCH ×4 (06:32→21:08)
[2019-04-07] MEDS ORDERED: INSULIN (NOVOLOG) ASPART 100 UNITS/ML 10ML VIAL ONE ×2 (06:45→11:57)
[2019-04-07] MEDS: FLUOCINONIDE 0.05% CREAM (15 GM TUBE) TP SCH ×2 (09:24→22:48)
[2019-04-07] MEDS: ASPIRIN 81 MG CHEWABLE TABLETS PO SCH (09:24)
[2019-04-07] MEDS: CALCIUM 500MG/VIT-D 200 UNITS COMBO TABLET (FP) PO SCH ×2 (09:25→21:09)
[2019-04-07] MEDS: GABAPENTIN 300 MG CAPSULE (FP) PO SCH ×2 (09:25→21:07)
[2019-04-07] MEDS: CLOTRIMAZOLE 1% CREAM 15 GM TUBE TP SCH ×2 (09:25→21:07)
[2019-04-07] MEDS: ENALAPRIL MALEATE 2.5 MG TABLET (FP) PO SCH (09:26)
[2019-04-07] MEDS: PRENATAL VITAMINS W/ FOLIC ACID TABLET (FP) PO SCH (09:26)
[2019-04-07] MEDS: CLOTRIMAZOLE 1% 10 ML TOPICAL SOLUTION TP SCH (09:27)
[2019-04-07] MEDS ORDERED: PT OWN MED DRAWER 7, Y5N ONE (15:21)
[2019-04-07] MEDS: diphenhydrAMINE HCL 50 MG CAPSULE PO SCH (21:07)
[2019-04-07] MEDS: ATORVASTATIN CA 40 MG TABLET (FP) PO SCH (22:48)
[2019-04-07] MEDS: THIAMINE HCL 100 MG TABLET (FP) PO SCH (22:49)
[2019-04-08] MEDS: CYCLOBENZAPRINE HCL 5 MG TABLET PO PRN (06:16)
[2019-04-08] MEDS: ACETAMINOPHEN 325 MG TABLET (FP) PO PRN (06:56)
[2019-04-08] MEDS: INSULIN (LEVEMIR) 100 UNITS/ML UNITS SQ SCH (06:59)
[2019-04-08] MEDS: INSULIN SLIDING SCALE (NOVOLOG) 1 VIAL SQ SCH ×2 (06:59→12:34)
[2019-04-08] MEDS ORDERED: INSULIN (NOVOLOG) ASPART 100 UNITS/ML 10ML VIAL ONE ×2 (07:00→12:36)
[2019-04-08 07:07] VITALS: TEMP 98
[2019-04-08 10:17] VITALS: BP 115/66; PULSE 108
[2019-04-08] MEDS: CLOTRIMAZOLE 1% CREAM 15 GM TUBE TP SCH (10:42)
[2019-04-08] MEDS: TOLNAFTATE 1% POWDER 45 GM POW TP PRN (10:43)
[2019-04-08] MEDS: ASPIRIN 81 MG CHEWABLE TABLETS PO SCH (10:44)
[2019-04-08] MEDS: PRENATAL VITAMINS W/ FOLIC ACID TABLET (FP) PO SCH (10:44)
[2019-04-08] MEDS: CALCIUM 500MG/VIT-D 200 UNITS COMBO TABLET (FP) PO SCH (10:45)
[2019-04-08] MEDS: GABAPENTIN 300 MG CAPSULE (FP) PO SCH (10:47)
[2019-04-08] MEDS: FLUOCINONIDE 0.05% CREAM (15 GM TUBE) TP SCH (10:48)
[2019-04-08] MEDS: CLOTRIMAZOLE 1% 10 ML TOPICAL SOLUTION TP SCH (10:48)
[2019-04-08] MEDS: ENALAPRIL MALEATE 2.5 MG TABLET (FP) PO SCH (12:34)
[2019-04-08] MEDS ORDERED: PT OWN MED DRAWER 7, Y5N ONE (13:36)
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
== END 2019-04-08 14:00 | disposition home or self-care (01) | DRG 772 ==
LOC: YASAS 12:08 → Y3W 12:09
PROVIDERS: ADMIT Neuromusculoskeletal Medicine & OMM; ATTEND Neuromusculoskeletal Medicine & OMM
PROC: HZ42ZZZ Group Counseling for Substance Abuse Treatment, Cognitive-Behavioral (ICD-10-PCS; principal; 2019-03-26)
DX: F11.20 Opioid dependence, uncomplicated (principal); F10.20 Alcohol dependence, uncomplicated; F13.20 Sedative, hypnotic or anxiolytic dependence, uncomplicated; F14.20 Cocaine dependence, uncomplicated; F31.9 Bipolar disorder, unspecified; F41.9 Anxiety disorder, unspecified; F40.00 Agoraphobia, unspecified; I10 Essential (primary) hypertension; E10.40 Type 1 diabetes mellitus with diabetic neuropathy, unspecified; Z79.4 Long term (current) use of insulin; C61 Malignant neoplasm of prostate; G91.9 Hydrocephalus, unspecified
CPT/HCPCS: 82962

== ENCOUNTER 2019-05-20 11:55 | Inpatient (IN) | payer OTHER ==
[2019-05-20 12:43] VITALS: BMI 27.3
--- NOTE | 2019-05-20 13:12 | HP ---
CIWA Score Nausea/Vomitin Muscle Tremors: 2 Anxiety: 3 Agitation: 2 Paroxysmal Sweats: 2 Orientation: 0-Oriented Tacttile Disturbances: 1-Very Mild Itch/Numbness Auditory Disturbances: 0-None Visual Disturbances: 0-None Headache: 1-Very Mild CIWA-Ar Total Score: 13 - Admission Criteria OASAS Guidelines: Admission for Medically Managed Detox: Requires at least one of the followin. CIWA greater than 12 2. Seizures within the past 24 hours 3. Delirium tremens within the past 24 hours 4. Hallucinations within the past 24 hours 5. Acute intervention needed for co occurring medical disorder 6. Acute intervention needed for co occurring psychiatric disorder 7. Severe withdrawal that cannot be handled at a lower level of care (continued vomiting, continued diarrhea, abnormal vital signs) requiring intravenous medication and/or fluids 8. Admitting History and Physical - Smoking History Smoking history: Current every day smoker Have you smoked in the past 12 months: Yes Aproximately how many cigarettes per day: 20 - Alcohol/Substance Use Hx Alcohol Use: Yes (h/o alcohol abuse) Admission [facility] Chief Complaint: Detox from alcohol, PCP, cocaine, "Free-base" Allergies/Adverse Reactions: Allergies Allergy/AdvReac Type Severity Reaction Status Date / Time Penicillins Allergy Severe Rash Verified 05/20/19 12:24 pork derived (porcine) Allergy Severe Hives Verified 05/20/19 12:24 History of Present Illness: 54 year old male with a past medical history of diabetes mellitus (type II), prostate cancer (dx last year - on leupron), peripheral neuropathy, hypertension , hyperlipidemia, depression presents for alcohol and cocaine detox. Was recently here in March for both detox and rehab, relapsed after he left because he was frequenting his old neighborhoods. Was clean for 3 weeks before he relapsed. Wants to get clean for his and children. Alcohol: 7 nips of vodka per day, 6 pack of coors 24 oz cans a day; drinks every day, last drink this morning (2 beers), has had blackouts from drinking too much; has had 2 alcohol withdrawal seizures in the past (1999, 2004). Started drinking heavily at 15 years old. Cocaine: uses free-base (laced with baking soda), smokes it. 7 dimes a day. Started using at 16 years old. 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 Will resume 30U BID of levemir for now until further notice. - Ebola screening Have you traveled outside of the country in the last 21 days: No Have you had contact with anyone from an Ebola affected area: No Do you have a fever: No - Review of Systems Constitutional: Diaphoresis, Loss of Appetite, Unintentional Wgt. Loss EENT: reports: Blurred Vision, Nose Congestion Respiratory: reports: Shortness of Breath Cardiac: reports: Lightheadedness GI: reports: Nausea : reports: No Symptoms Reported Musculoskeletal: reports: Back Pain Integumentary: reports: No Symptoms Reported Neuro: reports: Headache, Paresthesia Endocrine: reports: No Symptoms Reported Hematology: reports: No Symptoms Reported Psychiatric: reports: Judgement Intact, Mood/Affect Appropiate, Orientated x3, Agitated, Anxious, Depressed Patient History - Patient Medical History Hx Anemia: No Hx Asthma: No Hx Chronic Obstructive Pulmonary Disease (COPD): No Hx Cancer: Yes (prostate cancer on leuprolide) Hx Cardiac Disorders: No Hx Congestive Heart Failure: No Hx Hypertension: Yes Hx Hypercholesterolemia: Yes (no med) Hx Pacemaker: No HX Cerebrovascular Accident: No Hx Seizures: No Hx Dementia: No Hx Diabetes: Yes Hx Gastrointestinal Disorders: No Hx Liver Disease: No Hx Genitourinary Disorders: No Hx Sexually Transmitted Disorders: No Hx Renal Disease (ESRD): No Hx Thyroid Disease: No Hx Human Immunodeficiency Virus (HIV): No (last 05/31 negative) Hx Hepatitis C: No Hx Depression: Yes Hx Suicide Attempt: No Hx Bipolar Disorder: Yes Hx Schizophrenia: No - Patient Surgical History Past Surgical History: Yes Hx Neurologic Surgery: No Hx Cataract Extraction: No Hx Cardiac Surgery: No Hx Lung Surgery: No Hx Breast Surgery: No Hx Breast Biopsy: No Hx Abdominal Surgery: No Hx Appendectomy: Yes (1985) Hx Cholecystectomy: No Hx Genitourinary Surgery: No Hx Section: No Hx Orthopedic Surgery: No Anesthesia Reaction: No - PPD History Date: 05/24/18 Results: NEGATIVE - Smoking Cessation Smoking history: Current every day smoker Have you smoked in the past 12 months: Yes Aproximately how many cigarettes per day: 20 Hx Chewing Tobacco Use: No Initiated information on smoking cessation: Yes 'Breaking Loose' booklet given: 05/20/19 - Substances abused Alcohol Substance route: Oral Frequency: Daily Amount used: 6 nips of vodka and 9 12oz beers Age of first use: 8 Date of last use: 05/20/19 Cocaine Substance route: Smoking Frequency: 3-6 times per week Amount used: $100 Age of first use: 34 Date of last use: 05/20/19 Crack Other (specify): freebasing own cocaine. Substance route: Smoking Frequency: Daily Amount used: $100 Age of first use: 24 Date of last use: 03/19/19 Other Other (specify): Percocet Substance route: Oral Frequency: 1-3 times last 30 days Amount used: 3 pills Age of first use: 34 Date of last use: 03/18/19 PCP Substance route: Smoking Frequency: 1-2 times per week Amount used: 3 bags Age of first use: 16 Date of last use: 05/18/19 Benzodiazepine (Klonopin) Substance route: Oral Frequency: Daily Amount used: 10 mg daily Date of last use: 03/19/19 Admission Physical Exam S - Vital Signs Vital Signs: Vital Signs - 24 hr 05/20/19 12:35 Temperature 97.0 F L Pulse Rate 87 Respiratory 20 Rate Blood Pressure 114/73 - Physical General Appearance: Yes: Within Normal Limits, No Apparent Distress, Nourished, Appropriately Dressed HEENTM: Yes: Within Normal Limits, EOMI, Hearing grossly Normal, Normal ENT Inspection, Normocephalic, Normal Voice, Pharynx Normal Respiratory: Yes: Chest Non-Tender, Lungs Clear, Normal Breath Sounds, No Respiratory Distress, No Accessory Muscle Use Neck: Yes: No masses,lesions,Nodules Breast: Yes: Within Normal Limits, Axillae without masses Cardiology: Yes: Regular Rhythm, Regular Rate Abdominal: Yes: Normal Bowel Sounds, Non Tender, Flat, Soft Genitourinary: Yes: Within Normal Limits Musculoskeletal: Yes: full range of Motion, Gait Steady Extremities: Yes: Within Normal Limits, Normal Capillary Refill, Normal Inspection 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
--- NOTE | 2019-05-20 13:42 | PN ---
Teaching Attending Note Name of Resident: Chon Fernandez ATTENDING PHYSICIAN STATEMENT I saw and evaluated the patient. I reviewed the resident's note and discussed the case with the resident. I agree with the resident's findings and plan as documented. SUBJECTIVE: 54 yo with multiple admissions for alcohol and cocaine use. Last alcohol use this morning: ANIYAH-0, also uses cocaine- crack. Uses PCP 7 bags/day h/o prostate ca on Lupron, HTN, DM OBJECTIVE: Vital Signs - 24 hr 05/20/19 12:35 Temperature 97.0 F L Pulse Rate 87 Respiratory 20 Rate Blood Pressure 114/73 agitated ASSESSMENT AND PLAN: Admit for alcohol detox-
[2019-05-20] MEDS ORDERED: MAG HYDROX/AL HYDROX/SIMETH 30 ML UNIT-DOSE CUP PO PRN (14:00)
[2019-05-20] MEDS ORDERED: MENTHOL/PHENOL 1 EACH UD MM PRN (14:00)
[2019-05-20] MEDS ORDERED: MAGNESIUM HYDROX 2400MG/30ML ORAL SUSPENSION 30 ML CUP PO PRN (14:00)
[2019-05-20] MEDS ORDERED: ACETAMINOPHEN 325 MG TABLET (FP) PO PRN ×2 (14:00)
[2019-05-20] MEDS ORDERED: IBUPROFEN 400 MG TABLET (FP) PO PRN (14:00)
[2019-05-20] MEDS ORDERED: chlordiazePOXIDE HCL 10 MG CAPSULE PO PRN (14:00)
[2019-05-20] MEDS ORDERED: hydrOXYzine PAMOATE 25 MG CAPSULE (FP) PO PRN (14:00)
[2019-05-20] MEDS ORDERED: MAGNESIUM CITRATE 300 ML BOTTLE PO PRN (14:00)
[2019-05-20] MEDS ORDERED: MELATONIN 5 MG TABLETS PO PRN (14:00)
[2019-05-20] MEDS ORDERED: CLOTRIMAZOLE TP SCH (14:15)
[2019-05-20] MEDS ORDERED: ERGOCALCIFEROL (VIT D2) 50,000 UNIT (1.25 MG) CAPSULE PO SCH ×2 (14:15→17:15)
[2019-05-20 15:17] LABS: HEMATOCRIT 49.7 % (35.4-49); HEMOGLOBIN 16.5 GM/dL (11.7-16.9); MCH 32.8 pg (25.7-33.7); MCHC 33.3 g/dl (32.0-35.9); MEAN CELL VOLUME 98.7 fl (80-96); MEAN PLT VOLUME 10.2 fl (7.5-11.1); PLATELET COUNT 244 K/MM3 (134-434); RBC 5.04 M/mm3 (4.00-5.60); RDW 13.8 % (11.9-15.9); WHITE BLOOD COUNT 5.7 K/mm3 (4.0-10.0)
[2019-05-20] MEDS: chlordiazePOXIDE HCL 25 MG CAPSULE PO SCH ×2 (15:36→22:23)
[2019-05-20] MEDS ORDERED: INSULIN (NOVOLOG) ASPART 100 UNITS/ML 10ML VIAL SQ ONE ×2 (15:40→17:36)
[2019-05-20] MEDS: INSULIN SLIDING SCALE (NOVOLOG) 1 VIAL SQ SCH ×2 (15:43→22:26)
[2019-05-20 16:12] LABS: ALBUMIN 3.9 g/dl (3.4-5.0); BILIRUBIN,TOTAL 1.2 mg/dL (0.2-1); BLOOD UREA NITROGEN 19.6 mg/dL (7-18); CALCIUM 9.3 mg/dL (8.5-10.1); POTASSIUM 4.7 mmol/L (3.5-5.1); TOT PROT 7.9 g/dl (6.4-8.2)
--- NOTE | 2019-05-20 17:39 | PN ---
[facility] Progress Note Note: Patient received 12 units at 15:43 for glucose of 765. Current glucose is 545 and patient currently eating dinner. Patient's medication hx reviewed, and will add an additional 10 units novalog, now. Vital Signs 05/20/19 05/20/19 05/20/19 12:35 15:25 16:49 Temperature 97.0 F L 97.9 F 97.9 F Pulse Rate 87 81 104 H Respiratory 20 18 18 Rate Blood Pressure 114/73 115/74 119/75 Laboratory Tests 05/20/19 05/20/19 05/20/19 14:10 14:10 14:24 WBC 5.7 RBC 5.04 Hgb 16.5 Hct 49.7 H D MCV 98.7 H MCH 32.8 MCHC 33.3 RDW 13.8 Plt Count 244 MPV 10.2 Sodium 130 L Potassium 4.7 Chloride 96 L Carbon Dioxide 21 Anion Gap 13 BUN 19.6 H Creatinine 2.0 H Est GFR (CKD-EPI)AfAm 42.29 Est GFR (CKD-EPI)NonAf 36.49 POC Glucometer > 600 Random Glucose 765 H* Calcium 9.3 Total Bilirubin 1.2 H AST 13 L ALT 22 Alkaline Phosphatase 109 Total Protein 7.9 Albumin 3.9 05/20/19 16:32 WBC RBC Hgb Hct MCV MCH MCHC RDW Plt Count MPV Sodium Potassium Chloride Carbon Dioxide Anion Gap BUN Creatinine Est GFR (CKD-EPI)AfAm Est GFR (CKD-EPI)NonAf POC Glucometer 545 Random Glucose Calcium Total Bilirubin AST ALT Alkaline Phosphatase Total Protein Albumin
[2019-05-20] MEDS ORDERED: diphenhydrAMINE HCL 25 MG CAPSULE (FP) PO ONE (21:18)
[2019-05-20] MEDS ORDERED: INSULIN (LEVEMIR) 100 UNITS/ML UNITS SQ SCH (22:00)
[2019-05-20] MEDS ORDERED: diphenhydrAMINE HCL 50 MG CAPSULE PO SCH (22:00)
[2019-05-20] MEDS: GABAPENTIN 400 MG CAPSULE (FP) PO SCH (22:23)
[2019-05-20] MEDS: ATORVASTATIN CA 20 MG TABLET (FP) PO SCH (22:25)
[2019-05-20] MEDS: FLUOCINONIDE 0.05% CREAM (15 GM TUBE) TP SCH (22:26)
[2019-05-20] MEDS: CLOTRIMAZOLE 1% CREAM 15 GM TUBE TP SCH (22:26)
[2019-05-20] MEDS: THIAMINE HCL 100 MG TABLET (FP) PO SCH (22:28)
[2019-05-20] MEDS: CALCIUM 500MG/VIT-D 200 UNITS COMBO TABLET (FP) PO SCH (22:28)
[2019-05-20] MEDS: INSULIN (LEVEMIR) 100 UNITS/ML UNITS SQ SCH (22:37)
[2019-05-21] MEDS: chlordiazePOXIDE HCL 25 MG CAPSULE PO SCH ×3 (06:11→22:39)
[2019-05-21] MEDS: INSULIN (LEVEMIR) 100 UNITS/ML UNITS SQ SCH ×2 (07:20→22:47)
[2019-05-21] MEDS: INSULIN SLIDING SCALE (NOVOLOG) 1 VIAL SQ SCH ×4 (07:23→22:48)
--- NOTE | 2019-05-21 07:49 | CONSULT ---
[facility] Psychiatric Consult - Data Date of interview: 05/21/19 Admission source: Self-referred Identifying data: Mr Stevens is a 54 years old Blackmale, father of 5 children, unemployed receiving SSI, domiciles seeking detox treatment for alcohol, opioid, cocaine and benzodiazepine Substance Abuse History: Reportd history of alcohol, percocet, crack cocaine and klonopin use. Refer to addictiob counselor's summary for further information Medical History: Significant for hypertensin, dyslipidemia, type 2 diabetes mellitus, peripheral neuropathy, historyof treatment for prostate cance and appendectomy. Smokes cigarettes 1 ppd Psychiatric History: Patient is well know to this facility from multiple previous admisions. He denies previous psychiatric hospitalization. However, reports seeing a female psychiatrist for depression at a clinic on [address] in the [place]. Claims that he was prescribed Klonopin and Sertraline. Told that his last visit there was in February 2019 since the psychiatrist moved to [place]. Reports one previous suicidal attempt via self mutilation of cutting himself while under the influence of Oskar dust at the age of 21 as part of a game called"Spin the bottle". During his most recent admisson to this facility in March 2019, he saw GARY Klein and he was prescribed Melatonin 10 mg/hs prn for insomnia. At present, denies experiencing depressive symptoms, S/H ideations. However reports sleeping poorly Physical/Sexual Abuse/Trauma History: Denies history of verbal, physical or sexual abuse as well as DV relationship. No service Additional Comment: Reports history of 5 previous arrests including 2 felony convictions. Denies being on parole/probation currently Mental Status Exam - Mental Status Exam Alert and Oriented to: Time, Place, Person Cognitive Function: Fair Patient Appearance: Disheveled Patient Behavior: Cooperative Speech Pattern: Clear Voice Loudness: Normal Thought Process: Intact, Goal Oriented Thought Disorder: Not Present Hallucinations: Denies Suicidal Ideation: Denies Homicidal Ideation: Denies Insight/Judgement: Poor Sleep: Poorly Appetite: Good Muscle strength/Tone: Normal Gait/Station: Normal Psychiatric Findings - Problem List ([place] 1, 2,3) (1) Depressive disorder Current Visit: Yes Status: Chronic (2) Substance induced mood disorder Current Visit: Yes Status: Ruled-out (3) Substance-induced sleep disorder Current Visit: Yes Status: Acute (4) Alcohol dependence with uncomplicated withdrawal Current Visit: No Status: Acute (5) Cocaine dependence, uncomplicated Current Visit: No Status: Acute (6) Opioid abuse Current Visit: Yes Status: Acute (7) Phencyclidine abuse Current Visit: Yes Status: Acute (8) Nicotine dependence Current Visit: Yes Status: Chronic (9) Essential hypertension Current Visit: No Status: Chronic (10) HLD (hyperlipidemia) Current Visit: No Status: Chronic Qualifiers: Hyperlipidemia type: unspecified Qualified Code(s): E78.5 - Hyperlipidemia , unspecified (11) IDDM (insulin dependent diabetes mellitus) Current Visit: No Status: Chronic (12) Neuropathy Current Visit: No Status: Chronic (13) Arthritis of right knee Current Visit: No Status: Chronic (14) History of appendectomy Current Visit: No Status: Resolved - Initial Treatment Plan Initial Treatment Plan: 1) Start Melatonin 10 mg po HS prn for insomnia. 2) Continue inpatient detoxification
[2019-05-21] MEDS: METHOCARBAMOL 500 MG TABLET PO PRN ×2 (10:12→22:42)
[2019-05-21] MEDS: ASPIRIN 81 MG CHEWABLE TABLETS PO SCH (10:12)
[2019-05-21] MEDS: PRENATAL VITAMINS W/ FOLIC ACID TABLET (FP) PO SCH (10:12)
[2019-05-21] MEDS: MULTIVITAMINS (DAILY MVI) TABLET (FP) PO SCH (10:12)
[2019-05-21] MEDS: GABAPENTIN 400 MG CAPSULE (FP) PO SCH ×2 (10:12→22:40)
[2019-05-21] MEDS: ENALAPRIL MALEATE 2.5 MG TABLET (FP) PO SCH (10:13)
[2019-05-21] MEDS: CALCIUM 500MG/VIT-D 200 UNITS COMBO TABLET (FP) PO SCH ×2 (10:13→23:11)
[2019-05-21] MEDS: FLUOCINONIDE 0.05% CREAM (15 GM TUBE) TP SCH ×2 (11:43→23:14)
[2019-05-21] MEDS: CLOTRIMAZOLE 1% CREAM 15 GM TUBE TP SCH ×2 (11:43→23:14)
[2019-05-21] MEDS ORDERED: MELATONIN 5 MG TABLETS PO PRN (11:46)
[2019-05-21] MEDS ORDERED: FLU VACCINE QUAD 60 MCG/0.5 ML (MDV 19-20) IM ONE (12:00)
[2019-05-21] MEDS ORDERED: diphenhydrAMINE HCL 25 MG CAPSULE (FP) PO PRN (13:47)
--- NOTE | 2019-05-21 13:55 | PN ---
S CIWA - CIWA Score Nausea/Vomitin-No Nausea/No Vomiting Muscle Tremors: 3 Anxiety: 3 Agitation: 3 Paroxysmal Sweats: 3 Orientation: 0-Oriented Tacttile Disturbances: 0-None Auditory Disturbances: 0-None Visual Disturbances: 0-None Headache: 0-None Present CIWA-Ar Total Score: 12 [facility] Progress Note (SOAP) Subjective: I benadryl dose is too high sweats tired interrupted sleep body aches sweats shakes feet neuropathy Objective: 05/21/19 13:51 Vital Signs Temperature 97.7 F 05/21/19 13:35 Pulse Rate 80 05/21/19 13:35 Respiratory Rate 18 05/21/19 13:35 Blood Pressure 103/74 05/21/19 13:35 O2 Sat by Pulse Oximetry (%) Laboratory Tests 05/20/19 05/20/19 05/20/19 14:10 14:10 14:10 WBC 5.7 RBC 5.04 Hgb 16.5 Hct 49.7 H D MCV 98.7 H MCH 32.8 MCHC 33.3 RDW 13.8 Plt Count 244 MPV 10.2 Sodium 130 L Potassium 4.7 Chloride 96 L Carbon Dioxide 21 Anion Gap 13 BUN 19.6 H Creatinine 2.0 H Est GFR (CKD-EPI)AfAm 42.29 Est GFR (CKD-EPI)NonAf 36.49 POC Glucometer Random Glucose 765 H* Calcium 9.3 Total Bilirubin 1.2 H AST 13 L ALT 22 Alkaline Phosphatase 109 Total Protein 7.9 Albumin 3.9 RPR Titer Nonreactive HIV 1&2 Antibody Screen HIV P24 Antigen 05/20/19 05/20/19 05/20/19 14:24 16:32 22:20 WBC RBC Hgb Hct MCV MCH MCHC RDW Plt Count MPV Sodium Potassium Chloride Carbon Dioxide Anion Gap BUN Creatinine Est GFR (CKD-EPI)AfAm Est GFR (CKD-EPI)NonAf POC Glucometer > 600 545 255 Random Glucose Calcium Total Bilirubin AST ALT Alkaline Phosphatase Total Protein Albumin RPR Titer HIV 1&2 Antibody Screen HIV P24 Antigen 05/21/19 05/21/19 05/21/19 06:10 08:00 11:34 WBC RBC Hgb Hct MCV MCH MCHC RDW Plt Count MPV Sodium Potassium Chloride Carbon Dioxide Anion Gap BUN Creatinine Est GFR (CKD-EPI)AfAm Est GFR (CKD-EPI)NonAf POC Glucometer 413 316 Random Glucose Calcium Total Bilirubin AST ALT Alkaline Phosphatase Total Protein Albumin RPR Titer HIV 1&2 Antibody Screen Negative HIV P24 Antigen Negative labs noted aaox3 ambulating no acute distress Assessment: 05/21/19 13:51 withdrawals Plan: continue detox increase fluids Benadryl 25mg prn
[2019-05-21] MEDS ORDERED: INSULIN SLIDING SCALE (NOVOLOG) 1 VIAL SQ ONE (21:52)
[2019-05-21] MEDS: ATORVASTATIN CA 20 MG TABLET (FP) PO SCH (22:40)
[2019-05-21] MEDS: THIAMINE HCL 100 MG TABLET (FP) PO SCH (22:41)
[2019-05-22] MEDS: chlordiazePOXIDE 5 MG CAPSULE PO SCH ×3 (05:40→21:53)
[2019-05-22] MEDS: METHOCARBAMOL 500 MG TABLET PO PRN ×2 (05:42→21:57)
[2019-05-22] MEDS: BISMUTH SUBSALICYLATE 524 MG/30 ML UD PO PRN ×2 (05:42→10:34)
[2019-05-22] MEDS: INSULIN SLIDING SCALE (NOVOLOG) 1 VIAL SQ SCH ×4 (06:56→21:54)
[2019-05-22] MEDS: INSULIN (LEVEMIR) 100 UNITS/ML UNITS SQ SCH ×2 (07:00→21:54)
[2019-05-22] MEDS: PRENATAL VITAMINS W/ FOLIC ACID TABLET (FP) PO SCH (10:26)
[2019-05-22] MEDS: ASPIRIN 81 MG CHEWABLE TABLETS PO SCH (10:26)
[2019-05-22] MEDS: GABAPENTIN 400 MG CAPSULE (FP) PO SCH ×2 (10:26→21:53)
[2019-05-22] MEDS: FLUOCINONIDE 0.05% CREAM (15 GM TUBE) TP SCH ×2 (10:27→22:36)
[2019-05-22] MEDS: CALCIUM 500MG/VIT-D 200 UNITS COMBO TABLET (FP) PO SCH ×2 (10:27→21:54)
[2019-05-22] MEDS: MULTIVITAMINS (DAILY MVI) TABLET (FP) PO SCH (10:27)
[2019-05-22] MEDS: CLOTRIMAZOLE 1% CREAM 15 GM TUBE TP SCH ×2 (10:28→22:36)
[2019-05-22] MEDS: ENALAPRIL MALEATE 2.5 MG TABLET (FP) PO SCH (12:38)
--- NOTE | 2019-05-22 14:07 | PN ---
[facility] CIWA - CIWA Score Nausea/Vomitin-No Nausea/No Vomiting Muscle Tremors: 3 Anxiety: 2 Agitation: 3 Paroxysmal Sweats: 2 Orientation: 0-Oriented Tacttile Disturbances: 0-None Auditory Disturbances: 0-None Visual Disturbances: 0-None Headache: 0-None Present CIWA-Ar Total Score: 10 [facility] Progress Note (SOAP) Subjective: diarrhea sweats shakes interrupted sleep Objective: 05/22/19 14:05 Vital Signs Temperature 98.4 F 05/22/19 13:08 Pulse Rate 95 H 05/22/19 13:08 Respiratory Rate 18 05/22/19 13:08 Blood Pressure 126/75 05/22/19 13:08 O2 Sat by Pulse Oximetry (%) Laboratory Tests 05/20/19 05/20/19 05/20/19 14:10 14:10 14:10 WBC 5.7 RBC 5.04 Hgb 16.5 Hct 49.7 H D MCV 98.7 H MCH 32.8 MCHC 33.3 RDW 13.8 Plt Count 244 MPV 10.2 Sodium 130 L Potassium 4.7 Chloride 96 L Carbon Dioxide 21 Anion Gap 13 BUN 19.6 H Creatinine 2.0 H Est GFR (CKD-EPI)AfAm 42.29 Est GFR (CKD-EPI)NonAf 36.49 POC Glucometer Random Glucose 765 H* Calcium 9.3 Total Bilirubin 1.2 H AST 13 L ALT 22 Alkaline Phosphatase 109 Total Protein 7.9 Albumin 3.9 RPR Titer Nonreactive HIV 1&2 Antibody Screen HIV P24 Antigen 05/20/19 05/20/19 05/20/19 14:24 16:32 22:20 WBC RBC Hgb Hct MCV MCH MCHC RDW Plt Count MPV Sodium Potassium Chloride Carbon Dioxide Anion Gap BUN Creatinine Est GFR (CKD-EPI)AfAm Est GFR (CKD-EPI)NonAf POC Glucometer > 600 545 255 Random Glucose Calcium Total Bilirubin AST ALT Alkaline Phosphatase Total Protein Albumin RPR Titer HIV 1&2 Antibody Screen HIV P24 Antigen 05/21/19 05/21/19 05/21/19 06:10 08:00 11:34 WBC RBC Hgb Hct MCV MCH MCHC RDW Plt Count MPV Sodium Potassium Chloride Carbon Dioxide Anion Gap BUN Creatinine Est GFR (CKD-EPI)AfAm Est GFR (CKD-EPI)NonAf POC Glucometer 413 316 Random Glucose Calcium Total Bilirubin AST ALT Alkaline Phosphatase Total Protein Albumin RPR Titer HIV 1&2 Antibody Screen Negative HIV P24 Antigen Negative 05/21/19 05/21/19 05/22/19 16:48 21:27 06:52 WBC RBC Hgb Hct MCV MCH MCHC RDW Plt Count MPV Sodium Potassium Chloride Carbon Dioxide Anion Gap BUN Creatinine Est GFR (CKD-EPI)AfAm Est GFR (CKD-EPI)NonAf POC Glucometer 492 450 523 Random Glucose Calcium Total Bilirubin AST ALT Alkaline Phosphatase Total Protein Albumin RPR Titer HIV 1&2 Antibody Screen HIV P24 Antigen 05/22/19 10:32 WBC RBC Hgb Hct MCV MCH MCHC RDW Plt Count MPV Sodium Potassium Chloride Carbon Dioxide Anion Gap BUN Creatinine Est GFR (CKD-EPI)AfAm Est GFR (CKD-EPI)NonAf POC Glucometer 566 Random Glucose Calcium Total Bilirubin AST ALT Alkaline Phosphatase Total Protein Albumin RPR Titer HIV 1&2 Antibody Screen HIV P24 Antigen labs noted aaox3 ambulating no acute distress Assessment: 05/22/19 14:05 withdrawal sx Plan: continue detox increase fluids
[2019-05-22] MEDS ORDERED: LOPERAMIDE HCL 2 MG CAPSULE PO PRN (14:11)
--- NOTE | 2019-05-22 14:14 | PN ---
S Progress Note Note: pt levimir was increased to 30units for tonight. pt has uncontrolled diabetes and glucometer indicate high numbers.
[2019-05-22] MEDS: ATORVASTATIN CA 20 MG TABLET (FP) PO SCH (21:53)
[2019-05-22] MEDS: THIAMINE HCL 100 MG TABLET (FP) PO SCH (22:36)
[2019-05-23] MEDS ORDERED: chlordiazePOXIDE HCL 10 MG CAPSULE PO PRN
[2019-05-23] MEDS ORDERED: chlordiazePOXIDE HCL 10 MG CAPSULE PO SCH (05:00)
[2019-05-23] MEDS: METHOCARBAMOL 500 MG TABLET PO PRN (06:50)
[2019-05-23] MEDS: INSULIN SLIDING SCALE (NOVOLOG) 1 VIAL SQ SCH ×2 (06:55→12:25)
[2019-05-23] MEDS: INSULIN (LEVEMIR) 100 UNITS/ML UNITS SQ SCH (06:55)
[2019-05-23] MEDS: CLOTRIMAZOLE 1% CREAM 15 GM TUBE TP SCH (09:11)
[2019-05-23] MEDS: PRENATAL VITAMINS W/ FOLIC ACID TABLET (FP) PO SCH (09:11)
[2019-05-23] MEDS: FLUOCINONIDE 0.05% CREAM (15 GM TUBE) TP SCH (09:11)
[2019-05-23] MEDS: ASPIRIN 81 MG CHEWABLE TABLETS PO SCH (09:12)
[2019-05-23] MEDS: GABAPENTIN 400 MG CAPSULE (FP) PO SCH (09:12)
[2019-05-23] MEDS: CALCIUM 500MG/VIT-D 200 UNITS COMBO TABLET (FP) PO SCH (09:12)
[2019-05-23] MEDS: ENALAPRIL MALEATE 2.5 MG TABLET (FP) PO SCH (09:13)
[2019-05-23] MEDS: MULTIVITAMINS (DAILY MVI) TABLET (FP) PO SCH (10:29)
[2019-05-23 12:40] VITALS: BP 103/63; PULSE 100; TEMP 97.5
--- NOTE | 2019-05-23 13:03 | DS ---
[facility] Detox Discharge Summary Admission Date: 05/20/19 Discharge Date: 05/23/19 - History Present History: Alcohol Dependence, Cocaine Dependence, Opioid Dependence, Sedative Dependence, Pcp Dependence - Physical Exam Results Vital Signs: Vital Signs Temperature 97.5 F L 05/23/19 12:39 Pulse Rate 100 H 05/23/19 12:39 Respiratory Rate 18 05/23/19 12:39 Blood Pressure 103/63 05/23/19 12:39 O2 Sat by Pulse Oximetry (%) Pertinent Admission Physical Exam Findings: pt arrived in withdrawals Vital Signs Temperature 97.5 F L 05/23/19 12:39 Pulse Rate 100 H 05/23/19 12:39 Respiratory Rate 18 05/23/19 12:39 Blood Pressure 103/63 05/23/19 12:39 O2 Sat by Pulse Oximetry (%) aaox3 ambulating no acute distress - Treatment Hospital Course: Detox Protocol Followed, Detoxed Safely, Responded well, Discharged Condition Good, Rehab Referral Accepted Patient has Accepted a Rehab Referral to: pt referred to [facility] inpatient rehab - Medication Discharge Medications: Ambulatory Orders Leuprolide Acetate [Lupron Depot 7.5MG -] 7.5 mg IM MONTHLY 10/04/18 Insulin Glargine,Hum.rec.anlog [Basaglar Kwikpen U-100] 55 unit SQ BID 10/08/18 Diphenhydramine [Benadryl Capsule -] 100 mg PO HS 11/07/18 Ibuprofen [Motrin -] 600 mg PO PRN PRN 03/21/19 Multivitamins [Multivit ([facility] Formulary)] 1 tab PO DAILY 03/21/19 Sertraline HCl [Zoloft -] 50 mg PO DAILY 03/21/19 Aspirin [ASA -] 81 mg PO DAILY #14 tab.chew 04/08/19 Atorvastatin Ca [Lipitor] 20 mg PO HS #14 tablet 04/08/19 Calcium Carbonate/Vitamin D3 [Calcium 500-Vit D3 200 Caplet] 1 each PO BID #14 tablet 04/08/19 Clotrimazole 10 ml TP ASDIR #1 bottle 04/08/19 Clotrimazole [Jock Itch Relief] 15 gm TP BID #1 cream..g. 04/08/19 Enalapril Maleate [Vasotec -] 2.5 mg PO DAILY #14 tablet 04/08/19 Ergocalciferol [Vitamin D2] 50,000 unit PO WEEKLY #14 capsule 04/08/19 Fluocinonide 0.05% Cream [Lidex 0.05% Cream -] 1 applic TP BID #1 tube 04/08/19 Gabapentin [Neurontin -] 800 mg PO BID #30 capsule 04/08/19 Insulin Lispro [Admelog Solostar] 35 unit SQ TID #1 insuln.pen 04/08/19 - Diagnosis (1) Opioid abuse Current Visit: Yes Status: Acute (2) Phencyclidine abuse Current Visit: Yes Status: Acute (3) Substance-induced sleep disorder Current Visit: Yes Status: Acute (4) Depressive disorder Current Visit: Yes Status: Chronic (5) Nicotine dependence Current Visit: Yes Status: Chronic Qualifiers: Nicotine product type: cigarettes Substance use status: uncomplicated Qualified Code(s): F17.210 - Nicotine dependence, cigarettes, uncomplicated (6) Substance induced mood disorder Current Visit: Yes Status: Ruled-out (7) Alcohol dependence with uncomplicated withdrawal Current Visit: Yes Status: Chronic (8) Cocaine dependence, uncomplicated Current Visit: Yes Status: Chronic (9) Hydrocephalus Current Visit: No Status: Acute Qualifiers: Hydrocephalus type: obstructive Qualified Code(s): G91.1 - Obstructive hydrocephalus (10) Insomnia Current Visit: No Status: Acute (11) Knee pain, acute Current Visit: No Status: Acute Qualifiers: Laterality: left Qualified Code(s): M25.562 - Pain in left knee (12) Sedative, hypnotic or anxiolytic dependence, uncomplicated Current Visit: Yes Status: Chronic (13) Substance-induced sleep disorder Current Visit: No Status: Acute (14) Anxiety Current Visit: No Status: Chronic (15) Arthritis of right knee Current Visit: No Status: Chronic (16) Bipolar 1 disorder Current Visit: No Status: Chronic (17) Chronic low back pain Current Visit: No Status: Chronic Qualifiers: Back pain laterality: unspecified (18) Cocaine use disorder Current Visit: No Status: Chronic (19) Essential hypertension Current Visit: No Status: Chronic (20) HLD (hyperlipidemia) Current Visit: No Status: Chronic Qualifiers: Hyperlipidemia type: unspecified Qualified Code(s): E78.5 - Hyperlipidemia , unspecified (21) IDDM (insulin dependent diabetes mellitus) Current Visit: No Status: Chronic (22) Neuropathy Current Visit: Yes Status: Chronic (23) Phencyclidine dependence Current Visit: No Status: Chronic (24) Prostatic cancer Current Visit: No Status: Chronic (25) Shoulder pain, left Current Visit: No Status: Chronic Qualifiers: Chronicity: chronic Qualified Code(s): M25.512 - Pain in left shoulder; G89.29 - Other chronic pain (26) History of appendectomy Current Visit: No Status: Resolved - AMA Did Patient Leave Against Medical Advice: No
[2019-05-24] MEDS ORDERED: chlordiazePOXIDE HCL 10 MG CAPSULE PO ONE (05:00)
== END 2019-05-23 14:40 | disposition other institution (70) | DRG 773 ==
LOC: YASAS 11:55 → Y6N 14:27
PROVIDERS: ADMIT Allergy & Immunology; ATTEND Allergy & Immunology
PROC: HZ2ZZZZ Detoxification Services for Substance Abuse Treatment (ICD-10-PCS; principal; 2019-05-20)
DX: F11.23 Opioid dependence with withdrawal (principal); F10.230 Alcohol dependence with withdrawal, uncomplicated; F13.230 Sedative, hypnotic or anxiolytic dependence with withdrawal, uncomplicated; F14.20 Cocaine dependence, uncomplicated; F16.20 Hallucinogen dependence, uncomplicated; F17.210 Nicotine dependence, cigarettes, uncomplicated; F19.282 Other psychoactive substance dependence with psychoactive substance-induced sleep disorder; F19.24 Other psychoactive substance dependence with psychoactive substance-induced mood disorder; F31.9 Bipolar disorder, unspecified; F41.9 Anxiety disorder, unspecified; E11.9 Type 2 diabetes mellitus without complications; Z79.4 Long term (current) use of insulin; E78.5 Hyperlipidemia, unspecified; G62.9 Polyneuropathy, unspecified; G91.1 Obstructive hydrocephalus; C61 Malignant neoplasm of prostate; G47.00 Insomnia, unspecified; M25.512 Pain in left shoulder; M25.562 Pain in left knee; G89.29 Other chronic pain; Z91.018 Allergy to other foods; Z88.8 Allergy status to other drugs, medicaments and biological substances; Z98.890 Other specified postprocedural states; Z88.0 Allergy status to penicillin
CPT/HCPCS: 36415; 80053; 82962; 85027; 86593; 87389; Q2036

== ENCOUNTER 2019-05-23 14:42 | Inpatient (IN) | payer OTHER ==
[2019-05-23] MEDS ORDERED: MAGNESIUM HYDROX 2400MG/30ML ORAL SUSPENSION 30 ML CUP PO PRN (15:14)
[2019-05-23] MEDS ORDERED: P-EPHED 60MG/TRIPROLIDI 2.5MG TABLET PO PRN (15:14)
[2019-05-23] MEDS ORDERED: MAGNESIUM CITRATE 300 ML BOTTLE PO PRN (15:14)
[2019-05-23] MEDS ORDERED: MENTHOL/PHENOL 1 EACH UD MM PRN (15:14)
[2019-05-23] MEDS ORDERED: MAG HYDROX/AL HYDROX/SIMETH 30 ML UNIT-DOSE CUP PO PRN (15:14)
[2019-05-23] MEDS ORDERED: guaiFENesin 200 MG/10 ML 10 ML UNIT-DOSE CUPS PO PRN (15:14)
[2019-05-23] MEDS ORDERED: NICOTINE POLACRILEX 4 MG GUM BUC PRN (15:14)
[2019-05-23] MEDS ORDERED: ACETAMINOPHEN 325 MG TABLET (FP) PO PRN (15:14)
[2019-05-23] MEDS ORDERED: LOPERAMIDE HCL 2 MG CAPSULE PO PRN (15:14)
--- NOTE | 2019-05-23 15:14 | HP ---
[facility] Rehab Assess/Revision - Admission History Admitted to Rehab from: [facility] [place] - Vital signs Vital Signs: Vital Signs Period Temp Pulse Resp BP Sys/[place] Pulse Ox Last 24 Hr 97.9 F-97.9 F 107-107 18-18 108-108/74-74 - Findings Detox History & Physical reviewed: Yes Concur with findings: Yes Inpatient Rehab Admission - Rehab Decision to Admit Inpatient rehab admission?: Yes - Initial Determination Are CD services needed?: Yes Free of communicable disease: Yes Not in need of hospitalization: Yes - Rehab Admission Criteria Previous failed treatment: Yes Poor recovery environment: Yes Comorbidities: Yes Lacks judgement: Yes Patient is meeting Inpatient Rehab admission criteria:: Yes
[2019-05-23] MEDS: INSULIN SLIDING SCALE (NOVOLOG) 1 VIAL SQ SCH (16:40)
[2019-05-23] MEDS: ATORVASTATIN CA 40 MG TABLET (FP) PO SCH (21:47)
[2019-05-23] MEDS: METHOCARBAMOL 500 MG TABLET PO PRN (21:47)
[2019-05-23] MEDS: THIAMINE HCL 100 MG TABLET (FP) PO SCH (21:47)
[2019-05-23] MEDS: MELATONIN 5 MG TABLETS PO PRN (21:47)
[2019-05-23] MEDS: FLUOCINONIDE 0.05% CREAM (15 GM TUBE) TP SCH (21:48)
[2019-05-23] MEDS: INSULIN (LEVEMIR) 100 UNITS/ML UNITS SQ SCH (21:51)
[2019-05-24] MEDS: INSULIN (LEVEMIR) 100 UNITS/ML UNITS SQ SCH ×2 (06:50→21:00)
[2019-05-24] MEDS: METHOCARBAMOL 500 MG TABLET PO PRN ×3 (06:53→21:02)
[2019-05-24] MEDS: INSULIN SLIDING SCALE (NOVOLOG) 1 VIAL SQ SCH ×3 (07:39→16:29)
[2019-05-24] MEDS ORDERED: INSULIN (NOVOLOG) ASPART 100 UNITS/ML 10ML VIAL ONE ×2 (07:41→12:05)
--- NOTE | 2019-05-24 09:05 | PN ---
[facility] Progress Note Note: Patient requesting glucerna supplement. Weight 202, BMI 30.7. Patient insists he is losing weight and needs supplement. Dietary evaluation ordered. Laboratory Tests 05/23/19 05/23/19 05/24/19 16:38 21:49 06:49 POC Glucometer [phone] Laboratory Tests 05/23/19 05/23/19 05/24/19 16:38 21:49 06:49 POC Glucometer 530 563 344 05/20/19 labs reviewed. Na 130. Patient is asymptomatic. Will repeat CMP in am. Vital Signs Temperature 97.5 F L 05/24/19 07:09 Pulse Rate 98 H 05/24/19 07:09 Respiratory Rate 18 05/24/19 07:09 Blood Pressure 98/67 05/24/19 07:09 O2 Sat by Pulse Oximetry (%)
[2019-05-24] MEDS: PRENATAL VITAMINS W/ FOLIC ACID TABLET (FP) PO SCH (10:22)
[2019-05-24] MEDS: ASPIRIN 81 MG CHEWABLE TABLETS PO SCH (10:22)
[2019-05-24] MEDS: NICOTINE 21 MG/24 HOURS TOPICAL PATCH TD SCH (10:22)
[2019-05-24] MEDS: FLUOCINONIDE 0.05% CREAM (15 GM TUBE) TP SCH ×2 (10:23→21:03)
[2019-05-24] MEDS: ENALAPRIL MALEATE 5 MG TABLET (FP) PO SCH (10:23)
[2019-05-24] MEDS: IBUPROFEN 400 MG TABLET (FP) PO PRN (14:57)
[2019-05-24] MEDS: THIAMINE HCL 100 MG TABLET (FP) PO SCH (21:01)
[2019-05-24] MEDS: ATORVASTATIN CA 40 MG TABLET (FP) PO SCH (21:01)
[2019-05-24] MEDS: GABAPENTIN 400 MG CAPSULE (FP) PO SCH (21:02)
[2019-05-25] MEDS ORDERED: INSULIN (NOVOLOG) ASPART 100 UNITS/ML 10ML VIAL ONE ×3 (06:37→17:08)
--- NOTE | 2019-05-25 08:02 | PN ---
[facility] Progress Note Note: Patient reports that he fell in the bathroom and hit his head on the hand rail. Patient was seen and examined. Redness noted behind the left ear. No injury, swelling, bleeding, hematoma noted or reported. Patient denies pain or discomfort. Rates pain at 0/10. Fall was not witnessed. Fall protocol # 1 initiated. Patient refused to go to the Hospital to be evaluated and signed. ASSESSMENT: Vitals: B/P 110/69, HR 97, RR 16, Temp. 97.6F General:Awake, alert , in no apparent distress Skin: Warm and dry. Poor turgor HEAD: Normocephalic without evidence of trauma EYES: PERRLA, Extraocular movements intact Ears: Canals patent. Tymanic membrane clear. Redness noted behind the left ear Nose/Face: Atraumatic Mouth: No intraoral trauma NECK: Supple. Trachea midline. No JVD. Full range of motion without pain Chest: No surface trauma. Normal AP diameter. Lungs clear to auscultation bilaterally Heart: Regular rate and rhythm. No murmur, rub or gallop Abdomen / Back: No abrasions, ecchymosis or contusions are noted. Bowel sounds active Extremities: No surface trauma. Good range of motion without pain Neuro: Alert. Moves all extremities. Abnormal gait noted Action: Tylenol 650mg tablet oral Q6H prn Apply ice to left ear area as needed Maintain fall precaution
[2019-05-25] MEDS: INSULIN (LEVEMIR) 100 UNITS/ML UNITS SQ SCH ×2 (08:11→21:18)
[2019-05-25] MEDS: INSULIN SLIDING SCALE (NOVOLOG) 1 VIAL SQ SCH ×3 (08:11→17:06)
[2019-05-25 10:22] LABS: ALBUMIN 3.7 g/dl (3.4-5.0); BILIRUBIN,TOTAL 0.6 mg/dL (0.2-1); BLOOD UREA NITROGEN 21.8 mg/dL (7-18); CALCIUM 9.6 mg/dL (8.5-10.1); CREATININE 1.5 mg/dL (0.55-1.3); TOT PROT 7.4 g/dl (6.4-8.2)
[2019-05-25] MEDS: ENALAPRIL MALEATE 5 MG TABLET (FP) PO SCH (10:28)
[2019-05-25] MEDS: NICOTINE 21 MG/24 HOURS TOPICAL PATCH TD SCH (10:28)
[2019-05-25] MEDS: GABAPENTIN 400 MG CAPSULE (FP) PO SCH ×2 (10:29→21:17)
[2019-05-25] MEDS: FLUOCINONIDE 0.05% CREAM (15 GM TUBE) TP SCH ×2 (10:29→21:20)
[2019-05-25] MEDS: PRENATAL VITAMINS W/ FOLIC ACID TABLET (FP) PO SCH (10:29)
[2019-05-25] MEDS: ASPIRIN 81 MG CHEWABLE TABLETS PO SCH (10:29)
[2019-05-25] MEDS: METHOCARBAMOL 500 MG TABLET PO PRN ×2 (10:30→21:20)
[2019-05-25] MEDS: THIAMINE HCL 100 MG TABLET (FP) PO SCH (21:17)
[2019-05-25] MEDS: ATORVASTATIN CA 40 MG TABLET (FP) PO SCH (21:17)
[2019-05-26] MEDS ORDERED: INSULIN (NOVOLOG) ASPART 100 UNITS/ML 10ML VIAL ONE ×3 (06:58→17:16)
[2019-05-26] MEDS: INSULIN SLIDING SCALE (NOVOLOG) 1 VIAL SQ SCH ×3 (08:19→17:11)
[2019-05-26] MEDS: INSULIN (LEVEMIR) 100 UNITS/ML UNITS SQ SCH ×2 (08:19→21:26)
[2019-05-26] MEDS: METHOCARBAMOL 500 MG TABLET PO PRN ×2 (10:22→21:27)
[2019-05-26] MEDS: GABAPENTIN 400 MG CAPSULE (FP) PO SCH ×2 (10:23→21:27)
[2019-05-26] MEDS: FLUOCINONIDE 0.05% CREAM (15 GM TUBE) TP SCH ×2 (10:23→21:27)
[2019-05-26] MEDS: ASPIRIN 81 MG CHEWABLE TABLETS PO SCH (10:23)
[2019-05-26] MEDS: NICOTINE 21 MG/24 HOURS TOPICAL PATCH TD SCH (10:23)
[2019-05-26] MEDS: PRENATAL VITAMINS W/ FOLIC ACID TABLET (FP) PO SCH (10:23)
[2019-05-26] MEDS: ENALAPRIL MALEATE 5 MG TABLET (FP) PO SCH (10:25)
[2019-05-26] MEDS: THIAMINE HCL 100 MG TABLET (FP) PO SCH (21:27)
[2019-05-26] MEDS: ATORVASTATIN CA 40 MG TABLET (FP) PO SCH (21:27)
[2019-05-26] MEDS: MELATONIN 5 MG TABLETS PO PRN (21:29)
[2019-05-27] MEDS ORDERED: INSULIN (NOVOLOG) ASPART 100 UNITS/ML 10ML VIAL ONE ×3 (06:02→16:38)
[2019-05-27] MEDS: INSULIN SLIDING SCALE (NOVOLOG) 1 VIAL SQ SCH ×3 (07:44→16:40)
[2019-05-27] MEDS: INSULIN (LEVEMIR) 100 UNITS/ML UNITS SQ SCH ×2 (07:44→22:03)
[2019-05-27] MEDS ORDERED: PT OWN MED DRAWER 7, Y5N ONE ×2 (08:47→19:01)
[2019-05-27] MEDS: ASPIRIN 81 MG CHEWABLE TABLETS PO SCH (09:49)
[2019-05-27] MEDS: GABAPENTIN 400 MG CAPSULE (FP) PO SCH ×2 (09:49→21:59)
[2019-05-27] MEDS: PRENATAL VITAMINS W/ FOLIC ACID TABLET (FP) PO SCH (09:49)
[2019-05-27] MEDS: ENALAPRIL MALEATE 5 MG TABLET (FP) PO SCH (09:50)
[2019-05-27] MEDS: NICOTINE 21 MG/24 HOURS TOPICAL PATCH TD SCH (09:51)
[2019-05-27] MEDS: FLUOCINONIDE 0.05% CREAM (15 GM TUBE) TP SCH ×2 (09:51→22:00)
[2019-05-27] MEDS: TOLNAFTATE 1% CREAM 15 GM TUBE TP SCH ×2 (09:51→21:59)
[2019-05-27] MEDS: COLLOIDAL OATMEAL 1 BAR EACH TP PRN (11:14)
[2019-05-27] MEDS: THIAMINE HCL 100 MG TABLET (FP) PO SCH (21:58)
[2019-05-27] MEDS: ATORVASTATIN CA 40 MG TABLET (FP) PO SCH (21:59)
[2019-05-27] MEDS: MELATONIN 5 MG TABLETS PO PRN (22:01)
[2019-05-27] MEDS: IBUPROFEN 400 MG TABLET (FP) PO PRN (22:01)
[2019-05-27] MEDS ORDERED: INSULIN (LEVEMIR) 100 UNITS/ML UNITS SQ ONE (22:06)
[2019-05-28] MEDS ORDERED: INSULIN (NOVOLOG) ASPART 100 UNITS/ML 10ML VIAL ONE ×3 (06:05→21:57)
[2019-05-28] MEDS: INSULIN (LEVEMIR) 100 UNITS/ML UNITS SQ SCH ×3 (06:52→22:20)
[2019-05-28] MEDS: INSULIN SLIDING SCALE (NOVOLOG) 1 VIAL SQ SCH ×3 (06:52→16:37)
[2019-05-28] MEDS: ASPIRIN 81 MG CHEWABLE TABLETS PO SCH (09:55)
[2019-05-28] MEDS: PRENATAL VITAMINS W/ FOLIC ACID TABLET (FP) PO SCH (09:55)
[2019-05-28] MEDS: NICOTINE 21 MG/24 HOURS TOPICAL PATCH TD SCH (09:56)
[2019-05-28] MEDS: FLUOCINONIDE 0.05% CREAM (15 GM TUBE) TP SCH ×2 (09:56→21:55)
[2019-05-28] MEDS: GABAPENTIN 400 MG CAPSULE (FP) PO SCH ×3 (09:56→22:20)
[2019-05-28] MEDS: TOLNAFTATE 1% CREAM 15 GM TUBE TP SCH ×2 (09:56→21:59)
[2019-05-28] MEDS: METHOCARBAMOL 500 MG TABLET PO PRN (09:57)
[2019-05-28] MEDS: ENALAPRIL MALEATE 5 MG TABLET (FP) PO SCH (10:03)
[2019-05-28] MEDS ORDERED: PT OWN MED DRAWER 7, Y5N ONE (10:04)
[2019-05-28] MEDS: ATORVASTATIN CA 40 MG TABLET (FP) PO SCH ×2 (21:55→22:20)
[2019-05-28] MEDS: THIAMINE HCL 100 MG TABLET (FP) PO SCH ×2 (21:59→22:20)
[2019-05-29] MEDS: METHOCARBAMOL 500 MG TABLET PO PRN ×4 (01:32→21:58)
[2019-05-29] MEDS: IBUPROFEN 400 MG TABLET (FP) PO PRN ×2 (06:47→15:53)
[2019-05-29] MEDS: INSULIN SLIDING SCALE (NOVOLOG) 1 VIAL SQ SCH ×3 (06:48→17:03)
[2019-05-29] MEDS: INSULIN (LEVEMIR) 100 UNITS/ML UNITS SQ SCH ×2 (06:49→21:55)
[2019-05-29] MEDS: FLUOCINONIDE 0.05% CREAM (15 GM TUBE) TP SCH ×2 (09:56→21:56)
[2019-05-29] MEDS: PRENATAL VITAMINS W/ FOLIC ACID TABLET (FP) PO SCH (09:56)
[2019-05-29] MEDS: TOLNAFTATE 1% CREAM 15 GM TUBE TP SCH ×2 (09:56→21:56)
[2019-05-29] MEDS: GABAPENTIN 400 MG CAPSULE (FP) PO SCH ×2 (09:56→21:55)
[2019-05-29] MEDS: NICOTINE 21 MG/24 HOURS TOPICAL PATCH TD SCH (09:56)
[2019-05-29] MEDS: ASPIRIN 81 MG CHEWABLE TABLETS PO SCH (09:56)
[2019-05-29] MEDS: ENALAPRIL MALEATE 5 MG TABLET (FP) PO SCH (09:57)
[2019-05-29] MEDS ORDERED: INSULIN (NOVOLOG) ASPART 100 UNITS/ML 10ML VIAL ONE (11:53)
[2019-05-29] MEDS: THIAMINE HCL 100 MG TABLET (FP) PO SCH (21:55)
[2019-05-29] MEDS: ATORVASTATIN CA 40 MG TABLET (FP) PO SCH (21:56)
[2019-05-29] MEDS: MELATONIN 5 MG TABLETS PO PRN (21:59)
[2019-05-30] MEDS: METHOCARBAMOL 500 MG TABLET PO PRN ×3 (06:20→20:04)
[2019-05-30] MEDS ORDERED: INSULIN (NOVOLOG) ASPART 100 UNITS/ML 10ML VIAL ONE ×3 (06:40→16:53)
[2019-05-30] MEDS: INSULIN (LEVEMIR) 100 UNITS/ML UNITS SQ SCH ×2 (07:37→21:18)
[2019-05-30] MEDS: INSULIN SLIDING SCALE (NOVOLOG) 1 VIAL SQ SCH ×3 (07:38→16:52)
[2019-05-30] MEDS: GABAPENTIN 400 MG CAPSULE (FP) PO SCH ×2 (10:02→21:19)
[2019-05-30] MEDS: ENALAPRIL MALEATE 5 MG TABLET (FP) PO SCH (10:02)
[2019-05-30] MEDS: ASPIRIN 81 MG CHEWABLE TABLETS PO SCH (10:02)
[2019-05-30] MEDS: PRENATAL VITAMINS W/ FOLIC ACID TABLET (FP) PO SCH (10:02)
[2019-05-30] MEDS: TOLNAFTATE 1% CREAM 15 GM TUBE TP SCH ×2 (10:05→21:21)
[2019-05-30] MEDS: CLOTRIMAZOLE 1% 10 ML TOPICAL SOLUTION TP SCH ×2 (10:06→22:01)
[2019-05-30] MEDS: NICOTINE 21 MG/24 HOURS TOPICAL PATCH TD SCH (10:06)
[2019-05-30] MEDS: FLUOCINONIDE 0.05% CREAM (15 GM TUBE) TP SCH ×2 (10:06→21:21)
[2019-05-30] MEDS: IBUPROFEN 400 MG TABLET (FP) PO PRN (20:04)
[2019-05-30] MEDS: THIAMINE HCL 100 MG TABLET (FP) PO SCH (21:19)
[2019-05-30] MEDS: MELATONIN 5 MG TABLETS PO PRN (21:21)
[2019-05-30] MEDS: ATORVASTATIN CA 40 MG TABLET (FP) PO SCH (21:21)
[2019-05-31] MEDS ORDERED: INSULIN (NOVOLOG) ASPART 100 UNITS/ML 10ML VIAL ONE ×3 (06:38→22:11)
[2019-05-31] MEDS: INSULIN (LEVEMIR) 100 UNITS/ML UNITS SQ SCH ×2 (07:29→21:39)
[2019-05-31] MEDS: INSULIN SLIDING SCALE (NOVOLOG) 1 VIAL SQ SCH ×3 (07:30→16:33)
[2019-05-31] MEDS: METHOCARBAMOL 500 MG TABLET PO PRN ×3 (07:44→21:33)
[2019-05-31] MEDS: PRENATAL VITAMINS W/ FOLIC ACID TABLET (FP) PO SCH (09:42)
[2019-05-31] MEDS: GABAPENTIN 400 MG CAPSULE (FP) PO SCH ×2 (09:42→21:33)
[2019-05-31] MEDS: TOLNAFTATE 1% CREAM 15 GM TUBE TP SCH ×2 (09:42→21:39)
[2019-05-31] MEDS: ASPIRIN 81 MG CHEWABLE TABLETS PO SCH (09:42)
[2019-05-31] MEDS: IBUPROFEN 400 MG TABLET (FP) PO PRN (09:43)
[2019-05-31] MEDS: CLOTRIMAZOLE 1% 10 ML TOPICAL SOLUTION TP SCH ×2 (11:06→22:05)
[2019-05-31] MEDS: FLUOCINONIDE 0.05% CREAM (15 GM TUBE) TP SCH ×2 (11:06→21:35)
[2019-05-31] MEDS: NICOTINE 21 MG/24 HOURS TOPICAL PATCH TD SCH (11:06)
[2019-05-31] MEDS: ENALAPRIL MALEATE 5 MG TABLET (FP) PO SCH (11:07)
--- NOTE | 2019-05-31 14:25 | PN ---
[facility] Progress Note Note: Patient continues to c/o neuropathic pain to feet. Will adjust dose of gabapentin 400mg tid. Vital Signs Temperature 97.9 F 05/31/19 07:15 Pulse Rate 100 H 05/31/19 10:13 Respiratory Rate 20 05/31/19 10:13 Blood Pressure 136/66 05/31/19 10:13 O2 Sat by Pulse Oximetry (%)
[2019-05-31] MEDS: ATORVASTATIN CA 40 MG TABLET (FP) PO SCH (21:33)
[2019-05-31] MEDS ORDERED: PT OWN MED DRAWER 7, Y5N ONE (21:35)
[2019-05-31] MEDS: THIAMINE HCL 100 MG TABLET (FP) PO SCH (21:39)
[2019-05-31] MEDS: MELATONIN 5 MG TABLETS PO PRN (22:59)
[2019-06-01] MEDS: METHOCARBAMOL 500 MG TABLET PO PRN ×3 (06:50→21:57)
[2019-06-01] MEDS: GABAPENTIN 400 MG CAPSULE (FP) PO SCH ×3 (06:50→21:53)
[2019-06-01] MEDS ORDERED: INSULIN (NOVOLOG) ASPART 100 UNITS/ML 10ML VIAL ONE ×2 (06:54→21:59)
[2019-06-01] MEDS: INSULIN (LEVEMIR) 100 UNITS/ML UNITS SQ SCH ×2 (07:52→21:53)
[2019-06-01] MEDS: INSULIN SLIDING SCALE (NOVOLOG) 1 VIAL SQ SCH ×3 (07:53→16:38)
[2019-06-01] MEDS ORDERED: PT OWN MED DRAWER 7, Y5N ONE (08:57)
[2019-06-01] MEDS: ENALAPRIL MALEATE 5 MG TABLET (FP) PO SCH (09:25)
[2019-06-01] MEDS: PRENATAL VITAMINS W/ FOLIC ACID TABLET (FP) PO SCH (09:25)
[2019-06-01] MEDS: NICOTINE 21 MG/24 HOURS TOPICAL PATCH TD SCH (09:25)
[2019-06-01] MEDS: ASPIRIN 81 MG CHEWABLE TABLETS PO SCH (09:25)
[2019-06-01] MEDS: CLOTRIMAZOLE 1% 10 ML TOPICAL SOLUTION TP SCH ×2 (09:26→21:54)
[2019-06-01] MEDS: TOLNAFTATE 1% CREAM 15 GM TUBE TP SCH ×2 (09:26→21:54)
[2019-06-01] MEDS: FLUOCINONIDE 0.05% CREAM (15 GM TUBE) TP SCH ×2 (15:01→21:54)
[2019-06-01] MEDS: IBUPROFEN 400 MG TABLET (FP) PO PRN (16:41)
[2019-06-01] MEDS: MELATONIN 5 MG TABLETS PO PRN (21:53)
[2019-06-01] MEDS: ATORVASTATIN CA 40 MG TABLET (FP) PO SCH (21:53)
[2019-06-01] MEDS: THIAMINE HCL 100 MG TABLET (FP) PO SCH (21:54)
[2019-06-02] MEDS: METHOCARBAMOL 500 MG TABLET PO PRN ×2 (06:31→21:50)
[2019-06-02] MEDS: GABAPENTIN 400 MG CAPSULE (FP) PO SCH ×3 (06:32→21:51)
[2019-06-02] MEDS ORDERED: INSULIN SLIDING SCALE (NOVOLOG) 1 VIAL SQ ONE ×2 (06:42→11:48)
[2019-06-02] MEDS: INSULIN (LEVEMIR) 100 UNITS/ML UNITS SQ SCH ×2 (07:57→21:56)
[2019-06-02] MEDS: INSULIN SLIDING SCALE (NOVOLOG) 1 VIAL SQ SCH ×3 (07:57→16:32)
[2019-06-02] MEDS ORDERED: PT OWN MED DRAWER 7, Y5N ONE (08:46)
[2019-06-02] MEDS: PRENATAL VITAMINS W/ FOLIC ACID TABLET (FP) PO SCH (09:51)
[2019-06-02] MEDS: TOLNAFTATE 1% CREAM 15 GM TUBE TP SCH ×2 (09:51→21:49)
[2019-06-02] MEDS: ASPIRIN 81 MG CHEWABLE TABLETS PO SCH (09:51)
[2019-06-02] MEDS: NICOTINE 21 MG/24 HOURS TOPICAL PATCH TD SCH (09:51)
[2019-06-02] MEDS: ENALAPRIL MALEATE 5 MG TABLET (FP) PO SCH (09:51)
[2019-06-02] MEDS: FLUOCINONIDE 0.05% CREAM (15 GM TUBE) TP SCH ×2 (09:51→21:49)
[2019-06-02] MEDS: CLOTRIMAZOLE 1% 10 ML TOPICAL SOLUTION TP SCH ×2 (09:51→21:49)
[2019-06-02] MEDS: IBUPROFEN 400 MG TABLET (FP) PO PRN ×2 (09:53→21:51)
[2019-06-02] MEDS: THIAMINE HCL 100 MG TABLET (FP) PO SCH (21:48)
[2019-06-02] MEDS: MELATONIN 5 MG TABLETS PO PRN (21:48)
[2019-06-02] MEDS: ATORVASTATIN CA 40 MG TABLET (FP) PO SCH (21:49)
[2019-06-03] MEDS: METHOCARBAMOL 500 MG TABLET PO PRN ×3 (06:21→21:32)
[2019-06-03] MEDS: IBUPROFEN 400 MG TABLET (FP) PO PRN (06:21)
[2019-06-03] MEDS: GABAPENTIN 400 MG CAPSULE (FP) PO SCH ×3 (06:22→21:31)
[2019-06-03] MEDS: INSULIN SLIDING SCALE (NOVOLOG) 1 VIAL SQ SCH ×3 (07:34→16:43)
[2019-06-03] MEDS: INSULIN (LEVEMIR) 100 UNITS/ML UNITS SQ SCH ×2 (07:34→21:51)
[2019-06-03] MEDS: ENALAPRIL MALEATE 5 MG TABLET (FP) PO SCH (10:14)
[2019-06-03] MEDS: TOLNAFTATE 1% CREAM 15 GM TUBE TP SCH ×2 (10:32→21:31)
[2019-06-03] MEDS: FLUOCINONIDE 0.05% CREAM (15 GM TUBE) TP SCH ×2 (10:32→21:31)
[2019-06-03] MEDS: CLOTRIMAZOLE 1% 10 ML TOPICAL SOLUTION TP SCH ×2 (10:33→21:31)
[2019-06-03] MEDS: NICOTINE 21 MG/24 HOURS TOPICAL PATCH TD SCH (10:40)
[2019-06-03] MEDS: ASPIRIN 81 MG CHEWABLE TABLETS PO SCH (10:41)
[2019-06-03] MEDS: PRENATAL VITAMINS W/ FOLIC ACID TABLET (FP) PO SCH (10:41)
[2019-06-03] MEDS ORDERED: INSULIN (NOVOLOG) ASPART 100 UNITS/ML 10ML VIAL ONE ×2 (11:48→16:46)
[2019-06-03] MEDS: THIAMINE HCL 100 MG TABLET (FP) PO SCH (21:30)
[2019-06-03] MEDS: MELATONIN 5 MG TABLETS PO PRN (21:31)
[2019-06-03] MEDS: ATORVASTATIN CA 40 MG TABLET (FP) PO SCH (21:31)
[2019-06-04] MEDS: GABAPENTIN 400 MG CAPSULE (FP) PO SCH ×3 (06:35→21:47)
[2019-06-04] MEDS: METHOCARBAMOL 500 MG TABLET PO PRN ×3 (06:36→21:57)
[2019-06-04] MEDS: IBUPROFEN 400 MG TABLET (FP) PO PRN ×3 (06:37→21:51)
[2019-06-04] MEDS: INSULIN (LEVEMIR) 100 UNITS/ML UNITS SQ SCH ×2 (07:45→21:55)
[2019-06-04] MEDS: INSULIN SLIDING SCALE (NOVOLOG) 1 VIAL SQ SCH ×3 (07:46→16:44)
[2019-06-04] MEDS ORDERED: INSULIN (NOVOLOG) ASPART 100 UNITS/ML 10ML VIAL ONE ×3 (07:48→16:41)
[2019-06-04] MEDS: ASPIRIN 81 MG CHEWABLE TABLETS PO SCH (10:20)
[2019-06-04] MEDS: PRENATAL VITAMINS W/ FOLIC ACID TABLET (FP) PO SCH (10:20)
[2019-06-04] MEDS: NICOTINE 21 MG/24 HOURS TOPICAL PATCH TD SCH (10:20)
[2019-06-04] MEDS: ENALAPRIL MALEATE 5 MG TABLET (FP) PO SCH (10:20)
[2019-06-04] MEDS: FLUOCINONIDE 0.05% CREAM (15 GM TUBE) TP SCH ×2 (10:20→21:45)
[2019-06-04] MEDS: CLOTRIMAZOLE 1% 10 ML TOPICAL SOLUTION TP SCH ×2 (10:20→21:45)
[2019-06-04] MEDS: TOLNAFTATE 1% CREAM 15 GM TUBE TP SCH ×2 (10:21→21:47)
--- NOTE | 2019-06-04 13:03 | PN ---
S Progress Note (SOAP) Subjective: Patient c/o of redness in right eye; also ear pain. States runny nose; was sneezing and coughing. PMHx of seasonal allergies. Objective: General: no apparent distress HEENTM: Eyes: injected right eye, lateral aspect, round, responsive to light, nares patent, sinus-nontender,EAR: RIght: pain on palpation, reddened ear canal. unable to visualize TM. Neck: supple. Lungs:clear HeartL s1 s2 06/04/19 12:59 06/04/19 13:02 06/04/19 13:03 Vital Signs (72 hours) 06/02/19 06/02/19 06/02/19 00:30 03:30 07:17 Temperature 97.7 F Pulse Rate 85 Respiratory 18 18 18 Rate Blood Pressure 131/81 06/02/19 06/03/19 06/03/19 09:30 03:30 07:14 Temperature 97.9 F Pulse Rate 101 H 96 H Respiratory 18 18 20 Rate Blood Pressure 127/83 110/82 06/03/19 06/04/19 06/04/19 09:30 07:09 10:36 Temperature 97.8 F Pulse Rate 105 H 100 H 98 H Respiratory 18 20 18 Rate Blood Pressure 102/64 123/76 112/79 Assessment: otitis externa, 06/04/19 13:02 Plan: Ear gtt ordered, visine for eye redness ordered.
[2019-06-04] MEDS ORDERED: NEOMYCIN/POLYMYX/HC OPHTHALMIC SUSPENSION 7.5 ML BOTTLE OD SCH (14:00)
[2019-06-04] MEDS: TETRAHYDROZOLINE HCL EYE DROPS OD PRN ×2 (15:03→21:46)
[2019-06-04] MEDS ORDERED: PT OWN MED DRAWER 7, Y5N ONE ×2 (16:47→21:44)
[2019-06-04] MEDS: MELATONIN 5 MG TABLETS PO PRN (21:41)
[2019-06-04] MEDS: THIAMINE HCL 100 MG TABLET (FP) PO SCH (21:42)
[2019-06-04] MEDS: ATORVASTATIN CA 40 MG TABLET (FP) PO SCH (21:46)
[2019-06-04] MEDS: NEOMYCIN/POLYMYXN/HC OTIC SUSPENSION 10 ML BOTTLE AD SCH (21:48)
[2019-06-05] MEDS ORDERED: PT OWN MED DRAWER 7, Y5N ONE ×3 (05:02→14:38)
[2019-06-05] MEDS: NEOMYCIN/POLYMYXN/HC OTIC SUSPENSION 10 ML BOTTLE AD SCH ×3 (06:28→21:53)
[2019-06-05] MEDS: GABAPENTIN 400 MG CAPSULE (FP) PO SCH ×3 (06:28→21:52)
[2019-06-05] MEDS: METHOCARBAMOL 500 MG TABLET PO PRN ×3 (06:29→21:51)
[2019-06-05] MEDS: IBUPROFEN 400 MG TABLET (FP) PO PRN ×2 (06:30→17:01)
[2019-06-05] MEDS ORDERED: INSULIN (NOVOLOG) ASPART 100 UNITS/ML 10ML VIAL ONE ×2 (07:03→12:07)
[2019-06-05] MEDS: INSULIN (LEVEMIR) 100 UNITS/ML UNITS SQ SCH ×2 (07:25→21:59)
[2019-06-05] MEDS: INSULIN SLIDING SCALE (NOVOLOG) 1 VIAL SQ SCH ×3 (07:25→16:59)
[2019-06-05] MEDS: PRENATAL VITAMINS W/ FOLIC ACID TABLET (FP) PO SCH (10:29)
[2019-06-05] MEDS: ASPIRIN 81 MG CHEWABLE TABLETS PO SCH (10:29)
[2019-06-05] MEDS: FLUOCINONIDE 0.05% CREAM (15 GM TUBE) TP SCH ×2 (10:29→21:54)
[2019-06-05] MEDS: ENALAPRIL MALEATE 5 MG TABLET (FP) PO SCH (10:30)
[2019-06-05] MEDS: TOLNAFTATE 1% CREAM 15 GM TUBE TP SCH ×2 (10:30→21:54)
[2019-06-05] MEDS: CLOTRIMAZOLE 1% 10 ML TOPICAL SOLUTION TP SCH ×2 (10:30→21:54)
[2019-06-05] MEDS: NICOTINE 21 MG/24 HOURS TOPICAL PATCH TD SCH (10:30)
[2019-06-05] MEDS: MELATONIN 5 MG TABLETS PO PRN (21:51)
[2019-06-05] MEDS: THIAMINE HCL 100 MG TABLET (FP) PO SCH (21:52)
[2019-06-05] MEDS: ATORVASTATIN CA 40 MG TABLET (FP) PO SCH (21:52)
[2019-06-06] MEDS ORDERED: INSULIN (NOVOLOG) ASPART 100 UNITS/ML 10ML VIAL ONE ×3 (05:59→12:06)
[2019-06-06] MEDS ORDERED: INSULIN (LEVEMIR) 100 UNITS/ML UNITS SQ ONE (06:00)
[2019-06-06] MEDS: GABAPENTIN 400 MG CAPSULE (FP) PO SCH ×3 (06:33→21:53)
[2019-06-06] MEDS: NEOMYCIN/POLYMYXN/HC OTIC SUSPENSION 10 ML BOTTLE AD SCH ×3 (06:35→21:55)
[2019-06-06] MEDS: IBUPROFEN 400 MG TABLET (FP) PO PRN ×2 (06:35→21:54)
[2019-06-06] MEDS: METHOCARBAMOL 500 MG TABLET PO PRN ×4 (06:35→22:01)
[2019-06-06] MEDS: INSULIN SLIDING SCALE (NOVOLOG) 1 VIAL SQ SCH ×3 (08:00→16:48)
[2019-06-06] MEDS: INSULIN (LEVEMIR) 100 UNITS/ML UNITS SQ SCH ×2 (08:01→22:00)
[2019-06-06] MEDS: TETRAHYDROZOLINE HCL EYE DROPS OD PRN (10:19)
[2019-06-06] MEDS: PRENATAL VITAMINS W/ FOLIC ACID TABLET (FP) PO SCH (10:19)
[2019-06-06] MEDS: FLUOCINONIDE 0.05% CREAM (15 GM TUBE) TP SCH ×2 (10:20→21:55)
[2019-06-06] MEDS: NICOTINE 21 MG/24 HOURS TOPICAL PATCH TD SCH (10:20)
[2019-06-06] MEDS: TOLNAFTATE 1% CREAM 15 GM TUBE TP SCH ×2 (10:20→21:55)
[2019-06-06] MEDS: ASPIRIN 81 MG CHEWABLE TABLETS PO SCH (10:20)
[2019-06-06] MEDS: CLOTRIMAZOLE 1% 10 ML TOPICAL SOLUTION TP SCH ×2 (10:21→21:55)
[2019-06-06] MEDS: ENALAPRIL MALEATE 5 MG TABLET (FP) PO SCH (10:21)
--- NOTE | 2019-06-06 14:12 | PN ---
[facility] Progress Note Note: patient to be discharged tomorrow. Thirteen prescriptions sent to his pharmacy of choice. I received a message that the prescriptions were rejected. The pharmacy was called and reported that all prescriptions were received.
[2019-06-06] MEDS ORDERED: PT OWN MED DRAWER 7, Y5N ONE ×2 (14:20→19:27)
[2019-06-06] MEDS: THIAMINE HCL 100 MG TABLET (FP) PO SCH (21:53)
[2019-06-06] MEDS: MELATONIN 5 MG TABLETS PO PRN (21:53)
[2019-06-06] MEDS: ATORVASTATIN CA 40 MG TABLET (FP) PO SCH (21:53)
[2019-06-07] MEDS: GABAPENTIN 400 MG CAPSULE (FP) PO SCH (06:35)
[2019-06-07] MEDS: IBUPROFEN 400 MG TABLET (FP) PO PRN (06:35)
[2019-06-07] MEDS: METHOCARBAMOL 500 MG TABLET PO PRN ×2 (06:35→09:22)
[2019-06-07] MEDS ORDERED: INSULIN (NOVOLOG) ASPART 100 UNITS/ML 10ML VIAL ONE (06:56)
[2019-06-07] MEDS: COLLOIDAL OATMEAL 1 BAR EACH TP PRN (07:05)
[2019-06-07 07:10] VITALS: BP 135/80; PULSE 77; TEMP 97.5
[2019-06-07] MEDS: INSULIN (LEVEMIR) 100 UNITS/ML UNITS SQ SCH (07:15)
[2019-06-07] MEDS: NEOMYCIN/POLYMYXN/HC OTIC SUSPENSION 10 ML BOTTLE AD SCH (07:15)
[2019-06-07] MEDS: INSULIN SLIDING SCALE (NOVOLOG) 1 VIAL SQ SCH (07:15)
[2019-06-07] MEDS ORDERED: PT OWN MED DRAWER 7, Y5N ONE (08:39)
[2019-06-07] MEDS: ENALAPRIL MALEATE 5 MG TABLET (FP) PO SCH (09:20)
[2019-06-07] MEDS: ASPIRIN 81 MG CHEWABLE TABLETS PO SCH (09:21)
[2019-06-07] MEDS: PRENATAL VITAMINS W/ FOLIC ACID TABLET (FP) PO SCH (09:21)
[2019-06-07] MEDS: FLUOCINONIDE 0.05% CREAM (15 GM TUBE) TP SCH (09:21)
[2019-06-07] MEDS: NICOTINE 21 MG/24 HOURS TOPICAL PATCH TD SCH (09:21)
--- NOTE | 2019-06-07 12:04 | DS ---
[facility] Rehab Discharge Summary - [facility] Rehab Discharge Summary Admission Date: 05/23/19 Discharge Date: 06/07/19 - History Present History: Alcohol dependence, Cocaine dependence, PCP dependence - Discharge Physical Exam Vital Signs: Vital Signs Temperature 97.5 F L 06/07/19 07:09 Pulse Rate 77 06/07/19 07:09 Respiratory Rate 18 06/07/19 07:09 Blood Pressure 135/80 06/07/19 07:09 O2 Sat by Pulse Oximetry (%) Pertinent Admission Physical Exam Findings: ROS: denies shakes, etoh/cocaine cravings, headache, sweating, anxiety and restlessness. alert and oriented x 3 skin warm and dry +perrla, eoms intact bl car s1s2, rrr, no murmurs or gallops resp cta bl, no wheezes or rales ext full rom, amb ad cristian no tremors - Treatment Discharge Condition: Discharge condition good - Medication Discharge Medications: Ambulatory Orders Sertraline HCl [Zoloft -] 50 mg PO DAILY 03/21/19 Clotrimazole 10 ml TP ASDIR #1 bottle 04/08/19 Clotrimazole [Jock Itch Relief] 15 gm TP BID #1 cream..g. 04/08/19 Aspirin [ASA -] 81 mg PO DAILY 30 Days #14 tab.chew 06/06/19 Atorvastatin Ca [Lipitor] 20 mg PO HS 30 Days #14 tablet 06/06/19 Calcium Carbonate/Vitamin D3 [Calcium 500-Vit D3 200 Caplet] 1 each PO BID #30 tablet 06/06/19 Diphenhydramine [Benadryl Capsule -] 25 mg PO HS PRN #30 capsule 06/06/19 Enalapril Maleate [Vasotec -] 2.5 mg PO DAILY #30 tablet 06/06/19 Ergocalciferol [Vitamin D2] 50,000 unit PO WEEKLY #4 capsule 06/06/19 Fluocinonide 0.05% Cream [Lidex 0.05% Cream -] 1 applic TP BID #1 tube 06/06/19 Gabapentin [Neurontin -] 800 mg PO BID #60 capsule 06/06/19 Ibuprofen [Motrin -] 600 mg PO PRN PRN #30 tablet 06/06/19 Insulin Glargine,Hum.rec.anlog [Basaglar Kwikpen U-100] 55 unit SQ BID #10 insuln.pen 06/06/19 Insulin Lispro [Admelog Solostar] 35 unit SQ TID #10 insuln.pen 06/06/19 Leuprolide Acetate [Lupron Depot 7.5MG -] 7.5 mg IM MONTHLY #1 kit 06/06/19 Multivitamins [Multivit ([facility] Formulary)] 1 tab PO DAILY #30 tab 06/06/19 - Medication-Assisted Treatment (MAT) Medication-Assisted Treatment (MAT): No - Discharge Instructions Diet, activity, other medical instructions: Diet: NCS as tolerated Activity: reg as tolerated Other medical instructions: follow up with pcp as recommended - Follow-up Referral Minutes to complete discharge: 30 - AMA Did Patient Leave Against Medical Advice: No
== END 2019-06-07 09:25 | disposition home or self-care (01) | DRG 772 ==
LOC: YASAS 14:42 → Y3W 14:43
PROVIDERS: ADMIT Neuromusculoskeletal Medicine & OMM; ATTEND Neuromusculoskeletal Medicine & OMM
PROC: HZ42ZZZ Group Counseling for Substance Abuse Treatment, Cognitive-Behavioral (ICD-10-PCS; principal; 2019-05-23)
DX: F10.20 Alcohol dependence, uncomplicated (principal); F14.20 Cocaine dependence, uncomplicated; F11.20 Opioid dependence, uncomplicated; F16.20 Hallucinogen dependence, uncomplicated; F17.210 Nicotine dependence, cigarettes, uncomplicated; G62.9 Polyneuropathy, unspecified; E11.9 Type 2 diabetes mellitus without complications; Z79.4 Long term (current) use of insulin; E78.5 Hyperlipidemia, unspecified; J30.2 Other seasonal allergic rhinitis; H60.501 Unspecified acute noninfective otitis externa, right ear; S09.8XXA Other specified injuries of head, initial encounter; W18.39XA Other fall on same level, initial encounter; Y93.89 Activity, other specified; Y92.231 Patient bathroom in hospital as the place of occurrence of the external cause; Y99.8 Other external cause status; Z88.0 Allergy status to penicillin; Z91.018 Allergy to other foods; Z88.8 Allergy status to other drugs, medicaments and biological substances
CPT/HCPCS: 36415; 80053; 82962

== ENCOUNTER 2019-09-26 14:06 | Inpatient (IN) | payer OTHER ==
--- NOTE | 2019-09-26 15:07 | [facility].RME ---
Substance Use & Tx History - Substance Use History Alcohol Substance amount: 1 pint Vodka Substance route: Oral Date of Last Use: 09/25/19 Cocaine (Crack) Substance amount: $40. Frequency of use: More than 3 times per week Substance route: Inhalation (ex: sniffing or snorting) Date of Last Use: 09/24/19 Physical/Psych/Mental Status - Behavior General Behavior: Decreased activity Eye Contact: Normal - Cooperativeness Cooperativeness: Cooperative - Thinking Thought Processes: Loosened - Physical Health Problems Is patient presently having any pain?: Yes (chronic diabetic neuropathy) Does patient presently have any injuries (include location): Yes (fell 2 days ago, struck right knee) Does patient currently have a fever: No CIWA Nausea/Vomitin-No Nausea/No Vomiting Muscle Tremors: None Anxiety: 3 Agitation: 3 Paroxysmal Sweats: No Perspiration Orientation: 0-Oriented Tacttile Disturbances: 0-None Auditory Disturbances: 0-None Visual Disturbances: 2-Mild Sensitivity Headache: 0-None Present CIWA-Ar Total Score: 8 Treatment Recommendation - Level of Care Level of Care: Outpatient (does not meet criteria for detox admission, came from [facility], signed out last week)
--- NOTE | 2019-09-26 15:08 | HP ---
Screened but not Admitted - Documentation of Visit Screened but not Admitted: Yes Patient Does Not Meet Criteria for Admission: Yes Level of Care Recommended at this Time: Out Patient Care/Followup (signed out from [facility] last week)
[2019-09-26 17:11] VITALS: BMI 32.8
--- NOTE | 2019-09-26 17:53 | HP ---
CIWA Score Nausea/Vomitin-No Nausea/No Vomiting Muscle Tremors: None Anxiety: 3 Agitation: 3 Paroxysmal Sweats: No Perspiration Orientation: 0-Oriented Tacttile Disturbances: 0-None Auditory Disturbances: 0-None Visual Disturbances: 2-Mild Sensitivity Headache: 0-None Present CIWA-Ar Total Score: 8 - Admission Criteria OASAS Guidelines: Admission for Medically Managed Detox: Requires at least one of the followin. CIWA greater than 12 2. Seizures within the past 24 hours 3. Delirium tremens within the past 24 hours 4. Hallucinations within the past 24 hours 5. Acute intervention needed for co occurring medical disorder 6. Acute intervention needed for co occurring psychiatric disorder 7. Severe withdrawal that cannot be handled at a lower level of care (continued vomiting, continued diarrhea, abnormal vital signs) requiring intravenous medication and/or fluids 8. Admitting History and Physical - Admission History of Present Illness: This is a 54 year old male with PMH of DM, HTN, HLD, Prostate Ca, He presented to the clinic for detox from alcohol Last drink was last night, started drinking in his 20s, drinks 1/5 bottle of vodka and 1 6-pack of beer daily. Seizure in 2010, last blackout 2015. Started using cocaine at the age of 23, uses 1 gm 4/week, last use last night. Only snorts, no smoking or injecting. Started using PCP 15 years ago, last use yesterday, 1 bag/week Denies heroin use ROS: - Lethargy - Dizziness - Blurry vision - Nausea - Headache PMH: Was diagnosed with Prostate Ca 2017, biopsy done but no surgeries. Is currently on monthly Leuprolide injections. Has DM, has been hospitalized for DKA 3x in the past (last admission at [facility] 2018) checks blood glucose at home, has recently been in 300s 8 times this month. On Humalog 40 units AM and 40 units PM. Has HTN, was recently switched from Norvasc to Enalapril due to LE edema. PSH: Appendix removed in 1984 Social: - Homeless - Unemployed, used to cook Physical exam: - AOx3 - Eyes: JERAD, EOMI - Lungs: B/L Clear - CVS: RRR - GI: Soft, NT, ND - Extremities: Rt LE - REPAIR COIL WINDER: Motor 5/5. sensations intact - Smoking History Smoking history: Current every day smoker Have you smoked in the past 12 months: Yes Aproximately how many cigarettes per day: 15 - Alcohol/Substance Use Hx Alcohol Use: Yes (h/o alcohol abuse) Admission [facility] Allergies/Adverse Reactions: Allergies Allergy/AdvReac Type Severity Reaction Status Date / Time Penicillins Allergy Severe Rash Verified 09/26/19 16:55 pork derived (porcine) Allergy Severe Hives Verified 09/26/19 16:55 Patient History - Patient Medical History Hx Anemia: No Hx Asthma: No Hx Chronic Obstructive Pulmonary Disease (COPD): No Hx Cancer: Yes (prostate cancer on leuprolide) Hx Cardiac Disorders: No Hx Congestive Heart Failure: No Hx Hypertension: No Hx Hypercholesterolemia: Yes (no med) Hx Pacemaker: No HX Cerebrovascular Accident: No Hx Seizures: No Hx Dementia: No Hx Diabetes: Yes Hx Gastrointestinal Disorders: No Hx Liver Disease: No Hx Genitourinary Disorders: No Hx Sexually Transmitted Disorders: No Hx Renal Disease (ESRD): No Hx Thyroid Disease: No Hx Human Immunodeficiency Virus (HIV): No (last 05/31 negative) Hx Hepatitis C: No Hx Depression: Yes Hx Suicide Attempt: No Hx Bipolar Disorder: Yes Hx Schizophrenia: No - Patient Surgical History Past Surgical History: Yes Hx Neurologic Surgery: No Hx Cataract Extraction: No Hx Cardiac Surgery: No Hx Lung Surgery: No Hx Breast Surgery: No Hx Breast Biopsy: No Hx Abdominal Surgery: No Hx Appendectomy: Yes (1985) Hx Cholecystectomy: No Hx Genitourinary Surgery: No Hx Section: No Hx Orthopedic Surgery: No Anesthesia Reaction: No - PPD History Date: 05/25/18 Results: 0 mm - Reproductive History Patient : No - Smoking Cessation Smoking history: Current every day smoker Have you smoked in the past 12 months: Yes Aproximately how many cigarettes per day: 15 Hx Chewing Tobacco Use: No - Substances abused Alcohol Substance route: Oral Frequency: Daily Amount used: 5th of vodka/ 6 of 12 ounces beer. Age of first use: 8 Date of last use: 09/25/19 Cocaine Substance route: Inhalation Frequency: 3-6 times per week Amount used: 1 bag Age of first use: 23 Date of last use: 09/25/19 Admission Physical Exam S - Vital Signs Vital Signs: Vital Signs - 24 hr 09/26/19 17:05 Temperature 96.9 F L Pulse Rate 90 Respiratory 18 Rate Blood Pressure 114/73 Breathalyzer - Breathalyzer Breathalyzer: 0 Urine Drug Screen - Test Device Lot number: [id number] Expiration date: 01/11/21 - Control Is test valid?: Yes - Results Drug screen NEGATIVE: No Urine drug screen results: NAHOMY-Cocaine
[2019-09-26] MEDS ORDERED: MENTHOL/PHENOL 1 EACH UD MM PRN (17:54)
[2019-09-26] MEDS ORDERED: MAGNESIUM CITRATE 300 ML BOTTLE PO PRN (17:54)
[2019-09-26] MEDS ORDERED: NICOTINE POLACRILEX 2 MG GUM BC PRN (17:54)
[2019-09-26] MEDS ORDERED: guaiFENesin 200 MG/10 ML 10 ML UNIT-DOSE CUPS PO PRN (17:54)
[2019-09-26] MEDS ORDERED: P-EPHED 60MG/TRIPROLIDI 2.5MG TABLET PO PRN (17:54)
[2019-09-26] MEDS ORDERED: diphenhydrAMINE HCL 50 MG CAPSULE PO PRN (17:56)
[2019-09-26] MEDS ORDERED: CLOTRIMAZOLE TP SCH (18:00)
--- NOTE | 2019-09-26 19:59 | PN ---
Teaching Attending Note Name of Resident: Bud Saucedo ATTENDING PHYSICIAN STATEMENT I saw and evaluated the patient. I reviewed the resident's note and discussed the case with the resident. I agree with the resident's findings and plan as documented. SUBJECTIVE: 54 yo with h/o alcohol use disorder. Recently discharged from another facility, here for rehab. Pt states he hurt his leg against bed, with increased pain and redness of leg OBJECTIVE: Vital Signs - 24 hr 09/26/19 17:05 Temperature 96.9 F L Pulse Rate 90 Respiratory 18 Rate Blood Pressure 114/73 leg- with abrasion and redness of warmth of R kelley alert and oriented ASSESSMENT AND PLAN: AUD- pt recently discharged from another facility- here for rehab. R leg- with cellulitis- start antibiotics
[2019-09-26] MEDS ORDERED: INSULIN (NOVOLOG) ASPART 100 UNITS/ML 10ML VIAL ONE (20:43)
[2019-09-26] MEDS: INSULIN (LEVEMIR) 100 UNITS/ML UNITS SQ SCH (22:00)
[2019-09-26] MEDS ORDERED: MELATONIN 5 MG TABLETS PO PRN (22:00)
[2019-09-26] MEDS ORDERED: INSULIN LISPRO 35 UNIT SQ SCH (22:00)
[2019-09-26] MEDS: INSULIN SLIDING SCALE (NOVOLOG) 1 VIAL SQ SCH (22:00)
[2019-09-26] MEDS: FLUOCINONIDE 0.05% CREAM (15 GM TUBE) TP SCH (22:03)
[2019-09-26] MEDS: CLOTRIMAZOLE 1% CREAM 15 GM TUBE TP SCH (22:04)
[2019-09-26] MEDS: GABAPENTIN 400 MG CAPSULE PO SCH (22:04)
[2019-09-26] MEDS: CALCIUM 500MG/VIT-D 200 UNITS COMBO TABLET (FP) PO SCH (22:05)
[2019-09-26] MEDS: ATORVASTATIN CA 20 MG TABLET (FP) PO SCH (22:05)
[2019-09-26] MEDS: THIAMINE HCL 100 MG TABLET (FP) PO SCH (22:06)
[2019-09-27] MEDS: CLINDAMYCIN HCL 150 MG CAPSULE (FP) PO SCH ×5 (00:47→23:23)
[2019-09-27] MEDS ORDERED: INSULIN (NOVOLOG) ASPART 100 UNITS/ML 10ML VIAL ONE ×4 (07:27→21:29)
[2019-09-27] MEDS: INSULIN SLIDING SCALE (NOVOLOG) 1 VIAL SQ SCH ×4 (07:35→21:31)
[2019-09-27 09:52] LABS: HEMATOCRIT 47.4 % (35.4-49); HEMOGLOBIN 16.1 GM/dL (11.7-16.9); MCH 32.1 pg (25.7-33.7); MCHC 33.9 g/dl (32.0-35.9); MEAN CELL VOLUME 94.8 fl (80-96); MEAN PLT VOLUME 9.6 fl (7.5-11.1); PLATELET COUNT 203 K/MM3 (134-434); RDW 14.2 % (11.9-15.9); WHITE BLOOD COUNT 6.1 K/mm3 (4.0-10.0)
[2019-09-27] MEDS ORDERED: SERTRALINE HCL 50 MG TABLET (FP) PO SCH (10:00)
[2019-09-27] MEDS ORDERED: MULTIVITAMINS (DAILY MVI) TABLET (FP) PO SCH (10:00)
[2019-09-27] MEDS ORDERED: LEUPROLIDE ACETATE 7.5 MG KIT IM ONE (10:00)
[2019-09-27 10:02] LABS: ALBUMIN 3.3 g/dl (3.4-5.0); BILIRUBIN,TOTAL 0.6 mg/dL (0.2-1); BLOOD UREA NITROGEN 16.9 mg/dL (7-18); CALCIUM 9.4 mg/dL (8.5-10.1); CREATININE 1.6 mg/dL (0.55-1.3); POTASSIUM 4.6 mmol/L (3.5-5.1); TOT PROT 6.8 g/dl (6.4-8.2)
[2019-09-27] MEDS: ENALAPRIL MALEATE 2.5 MG TABLET (FP) PO SCH (11:31)
[2019-09-27] MEDS: GABAPENTIN 400 MG CAPSULE PO SCH ×2 (11:32→21:26)
[2019-09-27] MEDS: ERGOCALCIFEROL (VIT D2) 50,000 UNIT (1.25 MG) CAPSULE PO SCH (11:32)
[2019-09-27] MEDS: CALCIUM 500MG/VIT-D 200 UNITS COMBO TABLET (FP) PO SCH ×2 (11:33→21:27)
[2019-09-27] MEDS: PRENATAL VITAMINS W/ FOLIC ACID TABLET (FP) PO SCH (11:33)
[2019-09-27] MEDS: CLOTRIMAZOLE 1% CREAM 15 GM TUBE TP SCH ×2 (11:34→21:28)
[2019-09-27] MEDS: FLUOCINONIDE 0.05% CREAM (15 GM TUBE) TP SCH ×2 (11:34→21:32)
[2019-09-27] MEDS: INSULIN (LEVEMIR) 100 UNITS/ML UNITS SQ SCH ×2 (11:45→21:25)
[2019-09-27] MEDS: IBUPROFEN 400 MG TABLET (FP) PO PRN ×2 (11:56→18:03)
[2019-09-27] MEDS: ASPIRIN 81 MG CHEWABLE TABLETS PO SCH (12:42)
--- NOTE | 2019-09-27 12:53 | PN ---
[facility] Progress Note Note: Pt is a54 y/o male with a hx of ZOHAIB-Heroin,cocaine admitted to rehab yesterday through [facility]. PMHx:DM,HLD,Prostrate Cancer(on Lupron Inj. monthly and last recieved on 09/09/19 per pt account),Neuropathy,Cellulitis right LE. Right ear infection with oflaxin otic drops(verified from his [facility])Psych Hx: Depression. Pt saw psych MD here and started on Zoloft but pt refused zoloft stating he would lke to speak to the psych MD first before taking med stating zoloft is new to him. PSHx:Appendectomy(1984). Social Hx:Homeless. Pt reports he has a primary care provider, Dr. Rambo Hilario(pt reports this is his doctor who manages his Lupron Rx) on [address], [place]. Pt reports his last clinic vist was in August and next visit is in October for blood work review. Pt also has another PCP, Dr. Kaitlin Jiménez at [facility], on [address] [place], [place]. . This clinic confirmed pt comes to them with last visit of 09/21/19, missed 09/25/19 cardiology appointment(to be rescheduled by patient after rehab), foot clinic on 09/30/19(to be rescheduled also) and PCP clinic visit scheduled on 11/22/19. Pt is aware of these dates. Called pt's home pharmacy, [facility] who verified pt is on Basaglar 30 units sq BID after breakfast and dinner. [facility]ist also could not verify that patient is on Lupron on pt's medication history in their pharmacy. Vital Signs - 24 hr 09/26/19 09/26/19 09/27/19 17:05 20:18 00:59 Temperature 96.9 F L 98.6 F Pulse Rate 90 89 Respiratory 18 16 20 Rate Blood Pressure 114/73 118/62 09/27/19 09/27/19 09/27/19 03:30 07:35 12:46 Temperature 97.7 F Pulse Rate 87 90 Respiratory 18 18 18 Rate Blood Pressure 131/76 117/59 L 09/27/19 09/27/19 09/27/19 00:59 03:30 07:35 Temperature 97.7 F Pulse Rate 87 Respiratory 20 18 18 Rate Blood Pressure 131/76 09/27/19 09/27/19 09/27/19 10:00 12:46 14:22 Temperature Pulse Rate 100 H 90 96 H Respiratory 18 Rate Blood Pressure 89/64 L 117/59 L 94/55 L Laboratory Tests 09/26/19 09/26/19 09/27/19 18:04 21:58 07:01 WBC RBC Hgb Hct MCV MCH MCHC RDW Plt Count MPV Sodium Potassium Chloride Carbon Dioxide Anion Gap BUN Creatinine Est GFR (CKD-EPI)AfAm Est GFR (CKD-EPI)NonAf POC Glucometer 304 308 256 Random Glucose Calcium Total Bilirubin AST ALT Alkaline Phosphatase Total Protein Albumin RPR Titer 09/27/19 09/27/19 09/27/19 07:25 07:25 07:25 WBC 6.1 RBC 5.00 Hgb 16.1 Hct 47.4 MCV 94.8 MCH 32.1 MCHC 33.9 RDW 14.2 Plt Count 203 MPV 9.6 Sodium 140 Potassium 4.6 Chloride 104 Carbon Dioxide 31 Anion Gap 5 L BUN 16.9 Creatinine 1.6 H Est GFR (CKD-EPI)AfAm 55.39 Est GFR (CKD-EPI)NonAf 47.79 POC Glucometer Random Glucose 251 H Calcium 9.4 Total Bilirubin 0.6 AST 30 ALT 26 Alkaline Phosphatase 61 Total Protein 6.8 Albumin 3.3 L RPR Titer Nonreactive 09/27/19 09/27/19 09/27/19 11:37 16:38 21:24 WBC RBC Hgb Hct MCV MCH MCHC RDW Plt Count MPV Sodium Potassium Chloride Carbon Dioxide Anion Gap BUN Creatinine Est GFR (CKD-EPI)AfAm Est GFR (CKD-EPI)NonAf POC Glucometer 126 Random Glucose Calcium Total Bilirubin AST ALT Alkaline Phosphatase Total Protein Albumin RPR Titer Alert o x 3,denies s/h/i nad oob ambulating with steady gait uses cane extremities/skin;no pedal edema; Right LE redness and swelling with open wound on right kelley;LLE wnl A/P Cellulitis/Abscess R LE Maintain safety vasotec 2.5 mg and Levemir 30 units at 10:00 A.M held(Low BP);Resume at next dose time. on cleocin Abx therapy continue present care
[2019-09-27] MEDS: ACETAMINOPHEN 325 MG TABLET (FP) PO PRN ×2 (14:02→21:29)
--- NOTE | 2019-09-27 16:24 | CONSULT ---
[facility] Psychiatric Consult - Data Date of interview: 09/27/19 Admission source: [facility] Identifying data: Patient is a 54 year old male, but , father of five, unemployed, homeless, and is not receiving financial assistance. This is one of multiple admissions to rehab. Patient admitted to rehab for alcohol and cocaine dependence. Substance Abuse History: Smoking Cessation. Smoking history: Current every day smoker. Have you smoked in the past 12 months: Yes. Aproximately how many cigarettes per day: 15. Hx Chewing Tobacco Use: No. - Substances abused. Alcohol. Substance route: Oral. Frequency: Daily. Amount used: 5th of vodka/ 6 of 12 ounces beer. Age of first use: 8. Date of last use: 09/25/19. Cocaine. Substance route: Inhalation. Frequency: 3-6 times per week. Amount used: 1 bag. Age of first use: 23. Date of last use: 09/25/19 Medical History: DM, HTN, HLD, Prostate Cancer Psychiatric History: Patient denies history of psychiatric hospitalizations. Patient's first psychiatric contact was in 1999 at an outpatient clinic in the [place], [place] due to depression secondary to the of his mother (1995) and his brother (1998). Mr. Stevens was diagnosed with depression but was not compliant with treatment. After three years he discontinued treatment (only used psychiatrist for therapy) and did not see a psychiatrist again until 2003. Patient continued to refused medication (zoloft) and only seeked psychotherapy. After 2003 he continued to see various psychiatrist and throughout the years reports being prescribed klonopin +zoloft but was noncompliant. His most recent OPD was in [place] in February of 2019. History of one suicide attempt via self mutilation of cutting himself while under the influence of sofi dust at the age of 21. At present patient is experiencing difficulty sleeping. Patient denies thoughts or urges to hurt self or others. Physical/Sexual Abuse/Trauma History: denies. Mental Status Exam - Mental Status Exam Alert and Oriented to: Time, Place, Person Cognitive Function: Good Patient Appearance: Well Groomed Mood: Euthymic Affect: Mood Congruent Patient Behavior: Appropriate, Cooperative Speech Pattern: Appropriate Voice Loudness: Normal Thought Process: Intact, Goal Oriented Thought Disorder: Not Present Hallucinations: Denies Suicidal Ideation: Denies Homicidal Ideation: Denies Insight/Judgement: Poor Sleep: Poorly Appetite: Fair Muscle strength/Tone: Normal Gait/Station: Other (Patient ambulates with a cane.) Psychiatric Findings - Problem List ([place] 1, 2,3) (1) Substance-induced sleep disorder Current Visit: Yes Status: Acute (2) Cocaine use disorder Current Visit: Yes Status: Chronic (3) Phencyclidine dependence Current Visit: Yes Status: Chronic (4) Alcohol use disorder Current Visit: Yes Status: Chronic - Initial Treatment Plan Initial Treatment Plan: Psychoeducation provided. Rehab in progress. Will order Benadryl 25mg HS PRN for insomnia. Will d/c zoloft 50mg ordered by resident as patient states he is not interested in accepting zoloft. Benefits and side effects discussed. Verbal consent given.
[2019-09-27] MEDS: ATORVASTATIN CA 20 MG TABLET (FP) PO SCH (21:26)
[2019-09-27] MEDS: THIAMINE HCL 100 MG TABLET (FP) PO SCH (21:27)
[2019-09-28] MEDS: INSULIN SLIDING SCALE (NOVOLOG) 1 VIAL SQ SCH ×5 (06:30→21:32)
[2019-09-28] MEDS: CLINDAMYCIN HCL 150 MG CAPSULE (FP) PO SCH ×4 (07:05→18:13)
[2019-09-28] MEDS: IBUPROFEN 400 MG TABLET (FP) PO PRN ×3 (07:14→21:25)
[2019-09-28] MEDS ORDERED: INSULIN (NOVOLOG) ASPART 100 UNITS/ML 10ML VIAL ONE ×6 (08:12→21:54)
[2019-09-28 09:42] LABS: EPI CELLS 0.9 /HPF (0-5/HPF); HYALINE CASTS 6 /lpf (0-8); URINE APPEARANCE CLEAR; URINE BACTERIA 14.1 /hpf (NEGATIVE); URINE BILIRUBIN NEGATIVE (NEGATIVE); URINE COLOR YELLOW; URINE GLUCOSE (UA) TRACE (NEGATIVE); URINE KETONE NEGATIVE (NEGATIVE); URINE LEUK ESTERASE NEGATIVE (NEGATIVE); URINE NITRITE NEGATIVE (NEGATIVE); URINE PROTEIN 2+ (NEGATIVE); URINE RBC 2 /hpf (0-4); URINE UROBILINOGEN 0.2 mg/dL (0.2-1.0); URINE WBC 0 /hpf (0-5)
[2019-09-28] MEDS: INSULIN (LEVEMIR) 100 UNITS/ML UNITS SQ SCH ×2 (11:08→21:31)
[2019-09-28] MEDS: GABAPENTIN 400 MG CAPSULE PO SCH ×2 (11:12→21:25)
[2019-09-28] MEDS: PRENATAL VITAMINS W/ FOLIC ACID TABLET (FP) PO SCH (11:12)
[2019-09-28] MEDS: ASPIRIN 81 MG CHEWABLE TABLETS PO SCH (11:13)
[2019-09-28] MEDS: CLOTRIMAZOLE 1% CREAM 15 GM TUBE TP SCH ×2 (11:13→21:26)
[2019-09-28] MEDS: ENALAPRIL MALEATE 2.5 MG TABLET (FP) PO SCH (11:14)
[2019-09-28] MEDS: FLUOCINONIDE 0.05% CREAM (15 GM TUBE) TP SCH ×2 (11:14→21:27)
[2019-09-28] MEDS: CALCIUM 500MG/VIT-D 200 UNITS COMBO TABLET (FP) PO SCH ×2 (11:17→21:28)
[2019-09-28] MEDS: ACETAMINOPHEN 325 MG TABLET (FP) PO PRN (16:17)
[2019-09-28] MEDS: ATORVASTATIN CA 20 MG TABLET (FP) PO SCH (21:25)
[2019-09-28] MEDS: THIAMINE HCL 100 MG TABLET (FP) PO SCH (21:25)
[2019-09-29] MEDS: CLINDAMYCIN HCL 150 MG CAPSULE (FP) PO SCH ×4 (01:48→17:42)
[2019-09-29] MEDS: IBUPROFEN 400 MG TABLET (FP) PO PRN ×2 (07:07→17:42)
[2019-09-29] MEDS: INSULIN SLIDING SCALE (NOVOLOG) 1 VIAL SQ SCH ×4 (07:12→21:35)
[2019-09-29] MEDS ORDERED: INSULIN (NOVOLOG) ASPART 100 UNITS/ML 10ML VIAL ONE ×6 (07:12→21:51)
[2019-09-29] MEDS: PRENATAL VITAMINS W/ FOLIC ACID TABLET (FP) PO SCH (10:02)
[2019-09-29] MEDS: CALCIUM 500MG/VIT-D 200 UNITS COMBO TABLET (FP) PO SCH ×2 (10:02→21:36)
[2019-09-29] MEDS: ASPIRIN 81 MG CHEWABLE TABLETS PO SCH (10:02)
[2019-09-29] MEDS: GABAPENTIN 400 MG CAPSULE PO SCH ×2 (10:02→21:33)
[2019-09-29] MEDS: ENALAPRIL MALEATE 2.5 MG TABLET (FP) PO SCH (10:03)
[2019-09-29] MEDS: CLOTRIMAZOLE 1% CREAM 15 GM TUBE TP SCH ×2 (10:03→21:36)
[2019-09-29] MEDS: FLUOCINONIDE 0.05% CREAM (15 GM TUBE) TP SCH ×2 (10:04→21:36)
[2019-09-29] MEDS: ACETAMINOPHEN 325 MG TABLET (FP) PO PRN ×2 (10:05→21:34)
[2019-09-29] MEDS: INSULIN (LEVEMIR) 100 UNITS/ML UNITS SQ SCH ×2 (11:56→21:35)
[2019-09-29] MEDS: MAGNESIUM HYDROX 2400MG/30ML ORAL SUSPENSION 30 ML CUP PO PRN (16:26)
[2019-09-29] MEDS: ATORVASTATIN CA 20 MG TABLET (FP) PO SCH (21:33)
[2019-09-29] MEDS: THIAMINE HCL 100 MG TABLET (FP) PO SCH (21:34)
[2019-09-30] MEDS ORDERED: INSULIN (NOVOLOG) ASPART 100 UNITS/ML 10ML VIAL ONE ×4 (06:32→16:20)
[2019-09-30] MEDS: IBUPROFEN 400 MG TABLET (FP) PO PRN (06:33)
[2019-09-30] MEDS: INSULIN SLIDING SCALE (NOVOLOG) 1 VIAL SQ SCH ×4 (06:34→21:40)
[2019-09-30] MEDS: ASPIRIN 81 MG CHEWABLE TABLETS PO SCH (10:07)
[2019-09-30] MEDS: CALCIUM 500MG/VIT-D 200 UNITS COMBO TABLET (FP) PO SCH ×2 (10:08→21:36)
[2019-09-30] MEDS: PRENATAL VITAMINS W/ FOLIC ACID TABLET (FP) PO SCH (10:08)
[2019-09-30] MEDS: CLOTRIMAZOLE 1% CREAM 15 GM TUBE TP SCH ×2 (10:09→21:37)
[2019-09-30] MEDS: ENALAPRIL MALEATE 2.5 MG TABLET (FP) PO SCH (10:09)
[2019-09-30] MEDS: FLUOCINONIDE 0.05% CREAM (15 GM TUBE) TP SCH ×2 (10:10→21:37)
[2019-09-30] MEDS: OFLOXACIN 0.3% OTIC SOLUTION 5 ML BOTTLE AD SCH ×2 (10:11→21:35)
[2019-09-30] MEDS: ACETAMINOPHEN 325 MG TABLET (FP) PO PRN ×2 (10:12→21:39)
[2019-09-30] MEDS: INSULIN (LEVEMIR) 100 UNITS/ML UNITS SQ SCH ×2 (11:18→21:42)
[2019-09-30] MEDS: BACITRACIN 0.9 GM PACKET TP SCH ×2 (11:22→21:35)
--- NOTE | 2019-09-30 12:19 | PN ---
[facility] Progress Note Note: Pt completed Cleocin therapy. Right lower extremity edema/redness much resolved. Vital Signs - 24 hr 09/30/19 07:03 Temperature 97.8 F Pulse Rate 87 Respiratory 18 Rate Blood Pressure 108/86 will start Bacitracin ointment apply to area BID
--- NOTE | 2019-09-30 12:55 | PN ---
[facility] Progress Note Note: Called Pt's PCP Dr. Rambo Hilario today who states he last saw this patient 5 months ago and pt is on Lupron for traetment for Prostrate Cancer. Reports pt currently goes to [facility] for care with Dr. Hanna. However,Dr Hilario states that this patient can always be discharged to him after rehab for follow up management. Vital Signs - 24 hr 09/30/19 07:03 Temperature 97.8 F Pulse Rate 87 Respiratory 18 Rate Blood Pressure 108/86 Laboratory Tests 09/26/19 09/26/19 09/27/19 18:04 21:58 02:43 WBC RBC Hgb Hct MCV MCH MCHC RDW Plt Count MPV Sodium Potassium Chloride Carbon Dioxide Anion Gap BUN Creatinine Est GFR (CKD-EPI)AfAm Est GFR (CKD-EPI)NonAf POC Glucometer 304 308 Random Glucose Calcium Total Bilirubin AST ALT Alkaline Phosphatase Total Protein Albumin Urine Color Yellow Urine Appearance Clear Urine pH 6.0 Ur Specific [place] 1.022 Urine Protein 2+ H Urine Glucose (UA) Trace Urine Ketones Negative Urine Blood Negative Urine Nitrite Negative Urine Bilirubin Negative Urine Urobilinogen 0.2 Ur Leukocyte Esterase Negative Urine WBC (Auto) 0 Urine RBC (Auto) 2 Urine Casts (Auto) 6 U Epithel Cells (Auto) 0.9 Urine Bacteria (Auto) 14.1 RPR Titer 09/27/19 09/27/19 09/27/19 07:01 07:25 07:25 WBC 6.1 RBC 5.00 Hgb 16.1 Hct 47.4 MCV 94.8 MCH 32.1 MCHC 33.9 RDW 14.2 Plt Count 203 MPV 9.6 Sodium 140 Potassium 4.6 Chloride 104 Carbon Dioxide 31 Anion Gap 5 L BUN 16.9 Creatinine 1.6 H Est GFR (CKD-EPI)AfAm 55.39 Est GFR (CKD-EPI)NonAf 47.79 POC Glucometer 256 Random Glucose 251 H Calcium 9.4 Total Bilirubin 0.6 AST 30 ALT 26 Alkaline Phosphatase 61 Total Protein 6.8 Albumin 3.3 L Urine Color Urine Appearance Urine pH Ur Specific [place] Urine Protein Urine Glucose (UA) Urine Ketones Urine Blood Urine Nitrite Urine Bilirubin Urine Urobilinogen Ur Leukocyte Esterase Urine WBC (Auto) Urine RBC (Auto) Urine Casts (Auto) U Epithel Cells (Auto) Urine Bacteria (Auto) RPR Titer 09/27/19 09/27/19 09/27/19 07:25 11:37 16:38 WBC RBC Hgb Hct MCV MCH MCHC RDW Plt Count MPV Sodium Potassium Chloride Carbon Dioxide Anion Gap BUN Creatinine Est GFR (CKD-EPI)AfAm Est GFR (CKD-EPI)NonAf POC Glucometer 126 251 Random Glucose Calcium Total Bilirubin AST ALT Alkaline Phosphatase Total Protein Albumin Urine Color Urine Appearance Urine pH Ur Specific [place] Urine Protein Urine Glucose (UA) Urine Ketones Urine Blood Urine Nitrite Urine Bilirubin Urine Urobilinogen Ur Leukocyte Esterase Urine WBC (Auto) Urine RBC (Auto) Urine Casts (Auto) U Epithel Cells (Auto) Urine Bacteria (Auto) RPR Titer Nonreactive 09/27/19 09/28/19 09/28/19 21:24 07:17 11:08 WBC RBC Hgb Hct MCV MCH MCHC RDW Plt Count MPV Sodium Potassium Chloride Carbon Dioxide Anion Gap BUN Creatinine Est GFR (CKD-EPI)AfAm Est GFR (CKD-EPI)NonAf POC Glucometer 250 226 287 Random Glucose Calcium Total Bilirubin AST ALT Alkaline Phosphatase Total Protein Albumin Urine Color Urine Appearance Urine pH Ur Specific [place] Urine Protein Urine Glucose (UA) Urine Ketones Urine Blood Urine Nitrite Urine Bilirubin Urine Urobilinogen Ur Leukocyte Esterase Urine WBC (Auto) Urine RBC (Auto) Urine Casts (Auto) U Epithel Cells (Auto) Urine Bacteria (Auto) RPR Titer 09/28/19 09/28/19 09/29/19 16:14 20:36 07:09 WBC RBC Hgb Hct MCV MCH MCHC RDW Plt Count MPV Sodium Potassium Chloride Carbon Dioxide Anion Gap BUN Creatinine Est GFR (CKD-EPI)AfAm Est GFR (CKD-EPI)NonAf POC Glucometer 286 227 224 Random Glucose Calcium Total Bilirubin AST ALT Alkaline Phosphatase Total Protein Albumin Urine Color Urine Appearance Urine pH Ur Specific [place] Urine Protein Urine Glucose (UA) Urine Ketones Urine Blood Urine Nitrite Urine Bilirubin Urine Urobilinogen Ur Leukocyte Esterase Urine WBC (Auto) Urine RBC (Auto) Urine Casts (Auto) U Epithel Cells (Auto) Urine Bacteria (Auto) RPR Titer 09/29/19 09/29/19 09/29/19 11:55 16:23 20:24 WBC RBC Hgb Hct MCV MCH MCHC RDW Plt Count MPV Sodium Potassium Chloride Carbon Dioxide Anion Gap BUN Creatinine Est GFR (CKD-EPI)AfAm Est GFR (CKD-EPI)NonAf POC Glucometer 258 271 258 Random Glucose Calcium Total Bilirubin AST ALT Alkaline Phosphatase Total Protein Albumin Urine Color Urine Appearance Urine pH Ur Specific [place] Urine Protein Urine Glucose (UA) Urine Ketones Urine Blood Urine Nitrite Urine Bilirubin Urine Urobilinogen Ur Leukocyte Esterase Urine WBC (Auto) Urine RBC (Auto) Urine Casts (Auto) U Epithel Cells (Auto) Urine Bacteria (Auto) RPR Titer 09/30/19 09/30/19 06:31 11:17 WBC RBC Hgb Hct MCV MCH MCHC RDW Plt Count MPV Sodium Potassium Chloride Carbon Dioxide Anion Gap BUN Creatinine Est GFR (CKD-EPI)AfAm Est GFR (CKD-EPI)NonAf POC Glucometer 430 222 Random Glucose Calcium Total Bilirubin AST ALT Alkaline Phosphatase Total Protein Albumin Urine Color Urine Appearance Urine pH Ur Specific [place] Urine Protein Urine Glucose (UA) Urine Ketones Urine Blood Urine Nitrite Urine Bilirubin Urine Urobilinogen Ur Leukocyte Esterase Urine WBC (Auto) Urine RBC (Auto) Urine Casts (Auto) U Epithel Cells (Auto) Urine Bacteria (Auto) RPR Titer Dr. Brice Hilario's New Location: [facility] [address] [place], [place] [phone]
[2019-09-30] MEDS: GABAPENTIN 400 MG CAPSULE PO SCH ×2 (13:24→21:35)
[2019-09-30] MEDS: MAGNESIUM HYDROX 2400MG/30ML ORAL SUSPENSION 30 ML CUP PO PRN (19:38)
[2019-09-30] MEDS: ATORVASTATIN CA 20 MG TABLET (FP) PO SCH (21:36)
[2019-09-30] MEDS: THIAMINE HCL 100 MG TABLET (FP) PO SCH (21:36)
[2019-10-01] MEDS: IBUPROFEN 400 MG TABLET (FP) PO PRN ×2 (06:32→21:50)
[2019-10-01] MEDS: GABAPENTIN 400 MG CAPSULE PO SCH ×3 (06:33→21:49)
[2019-10-01] MEDS ORDERED: INSULIN (NOVOLOG) ASPART 100 UNITS/ML 10ML VIAL ONE ×4 (07:33→21:44)
[2019-10-01] MEDS: INSULIN SLIDING SCALE (NOVOLOG) 1 VIAL SQ SCH ×4 (07:40→21:48)
[2019-10-01] MEDS: ASPIRIN 81 MG CHEWABLE TABLETS PO SCH (10:34)
[2019-10-01] MEDS: OFLOXACIN 0.3% OTIC SOLUTION 5 ML BOTTLE AD SCH ×2 (10:35→21:52)
[2019-10-01] MEDS: BACITRACIN 0.9 GM PACKET TP SCH ×2 (10:35→23:09)
[2019-10-01] MEDS: CLOTRIMAZOLE 1% CREAM 15 GM TUBE TP SCH ×2 (10:36→23:10)
[2019-10-01] MEDS: FLUOCINONIDE 0.05% CREAM (15 GM TUBE) TP SCH ×2 (10:36→23:09)
[2019-10-01] MEDS: CALCIUM 500MG/VIT-D 200 UNITS COMBO TABLET (FP) PO SCH ×2 (10:36→23:10)
[2019-10-01] MEDS: PRENATAL VITAMINS W/ FOLIC ACID TABLET (FP) PO SCH (10:37)
[2019-10-01] MEDS: ENALAPRIL MALEATE 2.5 MG TABLET (FP) PO SCH (10:37)
[2019-10-01] MEDS: ACETAMINOPHEN 325 MG TABLET (FP) PO PRN (10:38)
[2019-10-01] MEDS: INSULIN (LEVEMIR) 100 UNITS/ML UNITS SQ SCH ×2 (11:23→21:46)
[2019-10-01] MEDS: COLLOIDAL OATMEAL 1 BAR EACH TP PRN (13:08)
[2019-10-01] MEDS: THIAMINE HCL 100 MG TABLET (FP) PO SCH (21:49)
[2019-10-01] MEDS: ATORVASTATIN CA 20 MG TABLET (FP) PO SCH (21:50)
[2019-10-02] MEDS: GABAPENTIN 400 MG CAPSULE PO SCH ×3 (06:18→22:13)
[2019-10-02] MEDS ORDERED: INSULIN (NOVOLOG) ASPART 100 UNITS/ML 10ML VIAL ONE ×4 (06:22→22:05)
[2019-10-02] MEDS: INSULIN SLIDING SCALE (NOVOLOG) 1 VIAL SQ SCH ×4 (06:22→22:14)
[2019-10-02] MEDS: IBUPROFEN 400 MG TABLET (FP) PO PRN ×2 (08:00→13:15)
[2019-10-02] MEDS: ASPIRIN 81 MG CHEWABLE TABLETS PO SCH (10:37)
[2019-10-02] MEDS: BACITRACIN 0.9 GM PACKET TP SCH ×2 (10:37→22:26)
[2019-10-02] MEDS: CALCIUM 500MG/VIT-D 200 UNITS COMBO TABLET (FP) PO SCH ×2 (10:38→22:16)
[2019-10-02] MEDS: FLUOCINONIDE 0.05% CREAM (15 GM TUBE) TP SCH ×2 (10:38→22:25)
[2019-10-02] MEDS: CLOTRIMAZOLE 1% CREAM 15 GM TUBE TP SCH ×2 (10:38→22:26)
[2019-10-02] MEDS: OFLOXACIN 0.3% OTIC SOLUTION 5 ML BOTTLE AD SCH ×2 (10:39→22:24)
[2019-10-02] MEDS: ENALAPRIL MALEATE 2.5 MG TABLET (FP) PO SCH (10:40)
[2019-10-02] MEDS: PRENATAL VITAMINS W/ FOLIC ACID TABLET (FP) PO SCH (10:40)
[2019-10-02] MEDS: ACETAMINOPHEN 325 MG TABLET (FP) PO PRN ×2 (10:42→22:15)
[2019-10-02] MEDS: INSULIN (LEVEMIR) 100 UNITS/ML UNITS SQ SCH ×2 (10:43→22:13)
[2019-10-02] MEDS: ATORVASTATIN CA 20 MG TABLET (FP) PO SCH (22:12)
[2019-10-02] MEDS: THIAMINE HCL 100 MG TABLET (FP) PO SCH (22:13)
[2019-10-02] MEDS: COLLOIDAL OATMEAL 1 BAR EACH TP PRN (22:16)
[2019-10-03] MEDS: ACETAMINOPHEN 325 MG TABLET (FP) PO PRN ×3 (06:02→21:57)
[2019-10-03] MEDS: GABAPENTIN 400 MG CAPSULE PO SCH ×3 (06:03→21:48)
[2019-10-03] MEDS: INSULIN SLIDING SCALE (NOVOLOG) 1 VIAL SQ SCH ×4 (06:10→21:38)
[2019-10-03] MEDS ORDERED: INSULIN (NOVOLOG) ASPART 100 UNITS/ML 10ML VIAL ONE ×4 (06:10→21:38)
[2019-10-03] MEDS: INSULIN (LEVEMIR) 100 UNITS/ML UNITS SQ SCH ×2 (10:57→21:39)
[2019-10-03] MEDS: ASPIRIN 81 MG CHEWABLE TABLETS PO SCH (10:59)
[2019-10-03] MEDS: PRENATAL VITAMINS W/ FOLIC ACID TABLET (FP) PO SCH (11:00)
[2019-10-03] MEDS: BACITRACIN 0.9 GM PACKET TP SCH ×2 (11:00→21:49)
[2019-10-03] MEDS: CALCIUM 500MG/VIT-D 200 UNITS COMBO TABLET (FP) PO SCH ×2 (11:00→21:50)
[2019-10-03] MEDS: ENALAPRIL MALEATE 2.5 MG TABLET (FP) PO SCH (11:01)
[2019-10-03] MEDS: FLUOCINONIDE 0.05% CREAM (15 GM TUBE) TP SCH ×2 (11:03→21:47)
[2019-10-03] MEDS: OFLOXACIN 0.3% OTIC SOLUTION 5 ML BOTTLE AD SCH ×2 (11:03→21:47)
[2019-10-03] MEDS: CLOTRIMAZOLE 1% CREAM 15 GM TUBE TP SCH ×2 (11:03→21:49)
[2019-10-03] MEDS: IBUPROFEN 400 MG TABLET (FP) PO PRN (14:35)
[2019-10-03] MEDS: MAGNESIUM HYDROX 2400MG/30ML ORAL SUSPENSION 30 ML CUP PO PRN (14:59)
[2019-10-03] MEDS: THIAMINE HCL 100 MG TABLET (FP) PO SCH (21:48)
[2019-10-03] MEDS: ATORVASTATIN CA 20 MG TABLET (FP) PO SCH (21:48)
[2019-10-03] MEDS ORDERED: INSULIN (LEVEMIR) 100 UNITS/ML UNITS SQ ONE (22:05)
[2019-10-03] MEDS: diphenhydrAMINE HCL 25 MG CAPSULE (FP) PO PRN (22:56)
[2019-10-03] MEDS: MAG HYDROX/AL HYDROX/SIMETH 30 ML UNIT-DOSE CUP PO PRN (22:57)
[2019-10-04] MEDS: GABAPENTIN 400 MG CAPSULE PO SCH ×3 (06:24→21:27)
[2019-10-04] MEDS: INSULIN SLIDING SCALE (NOVOLOG) 1 VIAL SQ SCH ×4 (06:28→21:33)
[2019-10-04] MEDS ORDERED: INSULIN (NOVOLOG) ASPART 100 UNITS/ML 10ML VIAL ONE ×5 (06:29→21:24)
[2019-10-04] MEDS: ACETAMINOPHEN 325 MG TABLET (FP) PO PRN ×3 (06:35→21:30)
[2019-10-04] MEDS: OFLOXACIN 0.3% OTIC SOLUTION 5 ML BOTTLE AD SCH ×2 (10:47→21:26)
[2019-10-04] MEDS: ENALAPRIL MALEATE 2.5 MG TABLET (FP) PO SCH (10:48)
[2019-10-04] MEDS: PRENATAL VITAMINS W/ FOLIC ACID TABLET (FP) PO SCH (10:49)
[2019-10-04] MEDS: ASPIRIN 81 MG CHEWABLE TABLETS PO SCH (10:49)
[2019-10-04] MEDS: ERGOCALCIFEROL (VIT D2) 50,000 UNIT (1.25 MG) CAPSULE PO SCH (10:49)
[2019-10-04] MEDS: BACITRACIN 0.9 GM PACKET TP SCH ×2 (10:50→21:26)
[2019-10-04] MEDS: CALCIUM 500MG/VIT-D 200 UNITS COMBO TABLET (FP) PO SCH ×2 (10:50→21:28)
[2019-10-04] MEDS: IBUPROFEN 400 MG TABLET (FP) PO PRN ×2 (10:51→18:43)
[2019-10-04] MEDS: CLOTRIMAZOLE 1% CREAM 15 GM TUBE TP SCH ×2 (10:53→21:29)
[2019-10-04] MEDS: FLUOCINONIDE 0.05% CREAM (15 GM TUBE) TP SCH ×2 (11:22→21:26)
[2019-10-04] MEDS: INSULIN (LEVEMIR) 100 UNITS/ML UNITS SQ SCH ×2 (11:23→21:31)
[2019-10-04] MEDS: THIAMINE HCL 100 MG TABLET (FP) PO SCH (21:27)
[2019-10-04] MEDS: ATORVASTATIN CA 20 MG TABLET (FP) PO SCH (21:27)
[2019-10-04] MEDS: diphenhydrAMINE HCL 25 MG CAPSULE (FP) PO PRN (21:35)
[2019-10-05] MEDS: IBUPROFEN 400 MG TABLET (FP) PO PRN ×2 (00:52→17:53)
[2019-10-05] MEDS: MAG HYDROX/AL HYDROX/SIMETH 30 ML UNIT-DOSE CUP PO PRN (00:53)
[2019-10-05] MEDS ORDERED: INSULIN (NOVOLOG) ASPART 100 UNITS/ML 10ML VIAL ONE ×4 (06:24→20:34)
[2019-10-05] MEDS: GABAPENTIN 400 MG CAPSULE PO SCH ×3 (06:25→22:14)
[2019-10-05] MEDS: ACETAMINOPHEN 325 MG TABLET (FP) PO PRN ×4 (06:25→22:19)
[2019-10-05] MEDS: INSULIN SLIDING SCALE (NOVOLOG) 1 VIAL SQ SCH ×4 (06:43→22:29)
[2019-10-05] MEDS: INSULIN (LEVEMIR) 100 UNITS/ML UNITS SQ SCH ×2 (11:03→22:29)
[2019-10-05] MEDS: FLUOCINONIDE 0.05% CREAM (15 GM TUBE) TP SCH ×2 (11:07→22:14)
[2019-10-05] MEDS: OFLOXACIN 0.3% OTIC SOLUTION 5 ML BOTTLE AD SCH ×2 (11:07→22:14)
[2019-10-05] MEDS: ASPIRIN 81 MG CHEWABLE TABLETS PO SCH (11:08)
[2019-10-05] MEDS: PRENATAL VITAMINS W/ FOLIC ACID TABLET (FP) PO SCH (11:08)
[2019-10-05] MEDS: CLOTRIMAZOLE 1% CREAM 15 GM TUBE TP SCH ×2 (11:08→22:12)
[2019-10-05] MEDS: BACITRACIN 0.9 GM PACKET TP SCH ×2 (11:08→22:13)
[2019-10-05] MEDS: CALCIUM 500MG/VIT-D 200 UNITS COMBO TABLET (FP) PO SCH ×2 (11:09→22:14)
[2019-10-05] MEDS: ENALAPRIL MALEATE 2.5 MG TABLET (FP) PO SCH (11:09)
[2019-10-05] MEDS: LOPERAMIDE HCL 2 MG CAPSULE PO PRN (17:52)
[2019-10-05] MEDS: THIAMINE HCL 100 MG TABLET (FP) PO SCH (22:15)
[2019-10-05] MEDS: ATORVASTATIN CA 20 MG TABLET (FP) PO SCH (22:15)
[2019-10-05] MEDS: diphenhydrAMINE HCL 25 MG CAPSULE (FP) PO PRN (22:22)
[2019-10-06] MEDS: GABAPENTIN 400 MG CAPSULE PO SCH ×3 (07:06→22:25)
[2019-10-06] MEDS: ACETAMINOPHEN 325 MG TABLET (FP) PO PRN ×2 (07:06→22:28)
[2019-10-06] MEDS ORDERED: INSULIN (NOVOLOG) ASPART 100 UNITS/ML 10ML VIAL ONE ×4 (07:38→22:23)
[2019-10-06] MEDS: INSULIN SLIDING SCALE (NOVOLOG) 1 VIAL SQ SCH ×4 (07:46→22:34)
[2019-10-06] MEDS: ASPIRIN 81 MG CHEWABLE TABLETS PO SCH (10:30)
[2019-10-06] MEDS: PRENATAL VITAMINS W/ FOLIC ACID TABLET (FP) PO SCH (10:31)
[2019-10-06] MEDS: CALCIUM 500MG/VIT-D 200 UNITS COMBO TABLET (FP) PO SCH ×2 (10:32→22:27)
[2019-10-06] MEDS: ENALAPRIL MALEATE 2.5 MG TABLET (FP) PO SCH (10:34)
[2019-10-06] MEDS: IBUPROFEN 400 MG TABLET (FP) PO PRN (10:35)
[2019-10-06] MEDS: CLOTRIMAZOLE 1% CREAM 15 GM TUBE TP SCH ×2 (10:36→22:33)
[2019-10-06] MEDS: FLUOCINONIDE 0.05% CREAM (15 GM TUBE) TP SCH ×2 (10:36→22:33)
[2019-10-06] MEDS: OFLOXACIN 0.3% OTIC SOLUTION 5 ML BOTTLE AD SCH ×2 (10:36→22:26)
[2019-10-06] MEDS: BACITRACIN 0.9 GM PACKET TP SCH ×2 (10:37→22:26)
[2019-10-06] MEDS: INSULIN (LEVEMIR) 100 UNITS/ML UNITS SQ SCH ×2 (10:48→22:33)
[2019-10-06] MEDS: MAG HYDROX/AL HYDROX/SIMETH 30 ML UNIT-DOSE CUP PO PRN (15:10)
[2019-10-06] MEDS: ATORVASTATIN CA 20 MG TABLET (FP) PO SCH (22:25)
[2019-10-06] MEDS: THIAMINE HCL 100 MG TABLET (FP) PO SCH (22:25)
[2019-10-06] MEDS: diphenhydrAMINE HCL 25 MG CAPSULE (FP) PO PRN (22:25)
[2019-10-07] MEDS ORDERED: INSULIN (NOVOLOG) ASPART 100 UNITS/ML 10ML VIAL ONE ×4 (06:25→21:56)
[2019-10-07] MEDS: ACETAMINOPHEN 325 MG TABLET (FP) PO PRN ×3 (06:25→22:08)
[2019-10-07] MEDS: GABAPENTIN 400 MG CAPSULE PO SCH ×3 (06:26→22:08)
[2019-10-07] MEDS: INSULIN SLIDING SCALE (NOVOLOG) 1 VIAL SQ SCH ×4 (06:28→22:10)
[2019-10-07] MEDS: LOPERAMIDE HCL 2 MG CAPSULE PO PRN ×2 (08:08→22:59)
--- NOTE | 2019-10-07 10:57 | DS ---
[facility] Discharge Summary - [facility] Discharge Summary Admission Date: 09/26/19 Discharge Date: 10/08/19 - History Present History: Alcohol dependence, Cocaine dependence Additional Comments: Pt is a 54 y/o male with a hx of ZOHAIB admitted to rehab and scheduled to discharge today. Pt has been referred to aftercare with [facility] on [address]. Pt is connected to primary care provider with Dr. Kaitlin Jiménez at [facility] on [address] [place] [address]. . Pt currently goes to [facility] for Prostrate Ca treatment under care of Dr. Hanna as per discussion with pt's other provider Dr. Rambo Hilario where pt also goes for medical care. Pertinent Past History: HTN HLD DM Low Vitamin D Prostrate Cancer Arthritis of Right Knee Chronic Lower Back Pain Left Shoulder Pain Neuropathy Depression - Discharge Physical Exam Vital Signs: Vital Signs Temperature 98.3 F 10/07/19 07:43 Pulse Rate 93 H 10/07/19 07:43 Respiratory Rate 18 10/07/19 07:43 Blood Pressure 135/75 10/07/19 07:43 O2 Sat by Pulse Oximetry (%) Pertinent Admission Physical Exam Findings: Laboratory Tests 09/26/19 09/26/19 09/27/19 18:04 21:58 02:43 WBC RBC Hgb Hct MCV MCH MCHC RDW Plt Count MPV Sodium Potassium Chloride Carbon Dioxide Anion Gap BUN Creatinine Est GFR (CKD-EPI)AfAm Est GFR (CKD-EPI)NonAf POC Glucometer [phone] Random Glucose Calcium Total Bilirubin AST ALT Alkaline Phosphatase Total Protein Albumin Urine Color Yellow Urine Appearance Clear Urine pH 6.0 Ur Specific [place] 1.022 Urine Protein 2+ H Urine Glucose (UA) Trace Urine Ketones Negative Urine Blood Negative Urine Nitrite Negative Urine Bilirubin Negative Urine Urobilinogen 0.2 Ur Leukocyte Esterase Negative Urine WBC (Auto) 0 Urine RBC (Auto) 2 Urine Casts (Auto) 6 U Epithel Cells (Auto) 0.9 Urine Bacteria (Auto) 14.1 RPR Titer 09/27/19 09/27/19 09/27/19 07:01 07:25 07:25 WBC 6.1 RBC 5.00 Hgb 16.1 Hct 47.4 MCV 94.8 MCH 32.1 MCHC 33.9 RDW 14.2 Plt Count 203 MPV 9.6 Sodium 140 Potassium 4.6 Chloride 104 Carbon Dioxide 31 Anion Gap 5 L BUN 16.9 Creatinine 1.6 H Est GFR (CKD-EPI)AfAm 55.39 Est GFR (CKD-EPI)NonAf 47.79 POC Glucometer 256 Random Glucose 251 H Calcium 9.4 Total Bilirubin 0.6 AST 30 ALT 26 Alkaline Phosphatase 61 Total Protein 6.8 Albumin 3.3 L Urine Color Urine Appearance Urine pH Ur Specific [place] Urine Protein Urine Glucose (UA) Urine Ketones Urine Blood Urine Nitrite Urine Bilirubin Urine Urobilinogen Ur Leukocyte Esterase Urine WBC (Auto) Urine RBC (Auto) Urine Casts (Auto) U Epithel Cells (Auto) Urine Bacteria (Auto) RPR Titer 09/27/19 09/27/19 09/27/19 07:25 11:37 16:38 WBC RBC Hgb Hct MCV MCH MCHC RDW Plt Count MPV Sodium Potassium Chloride Carbon Dioxide Anion Gap BUN Creatinine Est GFR (CKD-EPI)AfAm Est GFR (CKD-EPI)NonAf POC Glucometer [phone] Random Glucose Calcium Total Bilirubin AST ALT Alkaline Phosphatase Total Protein Albumin Urine Color Urine Appearance Urine pH Ur Specific [place] Urine Protein Urine Glucose (UA) Urine Ketones Urine Blood Urine Nitrite Urine Bilirubin Urine Urobilinogen Ur Leukocyte Esterase Urine WBC (Auto) Urine RBC (Auto) Urine Casts (Auto) U Epithel Cells (Auto) Urine Bacteria (Auto) RPR Titer Nonreactive 09/27/19 09/28/19 09/28/19 21:24 07:17 11:08 WBC RBC Hgb Hct MCV MCH MCHC RDW Plt Count MPV Sodium Potassium Chloride Carbon Dioxide Anion Gap BUN Creatinine Est GFR (CKD-EPI)AfAm Est GFR (CKD-EPI)NonAf POC Glucometer [phone] Random Glucose Calcium Total Bilirubin AST ALT Alkaline Phosphatase Total Protein Albumin Urine Color Urine Appearance Urine pH Ur Specific [place] Urine Protein Urine Glucose (UA) Urine Ketones Urine Blood Urine Nitrite Urine Bilirubin Urine Urobilinogen Ur Leukocyte Esterase Urine WBC (Auto) Urine RBC (Auto) Urine Casts (Auto) U Epithel Cells (Auto) Urine Bacteria (Auto) RPR Titer 09/28/19 09/28/19 09/29/19 16:14 20:36 07:09 WBC RBC Hgb Hct MCV MCH MCHC RDW Plt Count MPV Sodium Potassium Chloride Carbon Dioxide Anion Gap BUN Creatinine Est GFR (CKD-EPI)AfAm Est GFR (CKD-EPI)NonAf POC Glucometer [phone] Random Glucose Calcium Total Bilirubin AST ALT Alkaline Phosphatase Total Protein Albumin Urine Color Urine Appearance Urine pH Ur Specific [place] Urine Protein Urine Glucose (UA) Urine Ketones Urine Blood Urine Nitrite Urine Bilirubin Urine Urobilinogen Ur Leukocyte Esterase Urine WBC (Auto) Urine RBC (Auto) Urine Casts (Auto) U Epithel Cells (Auto) Urine Bacteria (Auto) RPR Titer 09/29/19 09/29/19 09/29/19 11:55 16:23 20:24 WBC RBC Hgb Hct MCV MCH MCHC RDW Plt Count MPV Sodium Potassium Chloride Carbon Dioxide Anion Gap BUN Creatinine Est GFR (CKD-EPI)AfAm Est GFR (CKD-EPI)NonAf POC Glucometer [phone] Random Glucose Calcium Total Bilirubin AST ALT Alkaline Phosphatase Total Protein Albumin Urine Color Urine Appearance Urine pH Ur Specific [place] Urine Protein Urine Glucose (UA) Urine Ketones Urine Blood Urine Nitrite Urine Bilirubin Urine Urobilinogen Ur Leukocyte Esterase Urine WBC (Auto) Urine RBC (Auto) Urine Casts (Auto) U Epithel Cells (Auto) Urine Bacteria (Auto) RPR Titer 09/30/19 09/30/19 09/30/19 06:31 11:17 16:22 WBC RBC Hgb Hct MCV MCH MCHC RDW Plt Count MPV Sodium Potassium Chloride Carbon Dioxide Anion Gap BUN Creatinine Est GFR (CKD-EPI)AfAm Est GFR (CKD-EPI)NonAf POC Glucometer [phone] Random Glucose Calcium Total Bilirubin AST ALT Alkaline Phosphatase Total Protein Albumin Urine Color Urine Appearance Urine pH Ur Specific [place] Urine Protein Urine Glucose (UA) Urine Ketones Urine Blood Urine Nitrite Urine Bilirubin Urine Urobilinogen Ur Leukocyte Esterase Urine WBC (Auto) Urine RBC (Auto) Urine Casts (Auto) U Epithel Cells (Auto) Urine Bacteria (Auto) RPR Titer 09/30/19 10/01/19 10/01/19 21:34 06:30 11:17 WBC RBC Hgb Hct MCV MCH MCHC RDW Plt Count MPV Sodium Potassium Chloride Carbon Dioxide Anion Gap BUN Creatinine Est GFR (CKD-EPI)AfAm Est GFR (CKD-EPI)NonAf POC Glucometer [phone] Random Glucose Calcium Total Bilirubin AST ALT Alkaline Phosphatase Total Protein Albumin Urine Color Urine Appearance Urine pH Ur Specific [place] Urine Protein Urine Glucose (UA) Urine Ketones Urine Blood Urine Nitrite Urine Bilirubin Urine Urobilinogen Ur Leukocyte Esterase Urine WBC (Auto) Urine RBC (Auto) Urine Casts (Auto) U Epithel Cells (Auto) Urine Bacteria (Auto) RPR Titer 10/01/19 10/01/19 10/02/19 16:20 20:35 06:19 WBC RBC Hgb Hct MCV MCH MCHC RDW Plt Count MPV Sodium Potassium Chloride Carbon Dioxide Anion Gap BUN Creatinine Est GFR (CKD-EPI)AfAm Est GFR (CKD-EPI)NonAf POC Glucometer [phone] Random Glucose Calcium Total Bilirubin AST ALT Alkaline Phosphatase Total Protein Albumin Urine Color Urine Appearance Urine pH Ur Specific [place] Urine Protein Urine Glucose (UA) Urine Ketones Urine Blood Urine Nitrite Urine Bilirubin Urine Urobilinogen Ur Leukocyte Esterase Urine WBC (Auto) Urine RBC (Auto) Urine Casts (Auto) U Epithel Cells (Auto) Urine Bacteria (Auto) RPR Titer 10/02/19 10/02/19 10/02/19 11:14 16:39 20:40 WBC RBC Hgb Hct MCV MCH MCHC RDW Plt Count MPV Sodium Potassium Chloride Carbon Dioxide Anion Gap BUN Creatinine Est GFR (CKD-EPI)AfAm Est GFR (CKD-EPI)NonAf POC Glucometer [phone] Random Glucose Calcium Total Bilirubin AST ALT Alkaline Phosphatase Total Protein Albumin Urine Color Urine Appearance Urine pH Ur Specific [place] Urine Protein Urine Glucose (UA) Urine Ketones Urine Blood Urine Nitrite Urine Bilirubin Urine Urobilinogen Ur Leukocyte Esterase Urine WBC (Auto) Urine RBC (Auto) Urine Casts (Auto) U Epithel Cells (Auto) Urine Bacteria (Auto) RPR Titer 10/03/19 10/03/19 10/03/19 06:07 10:56 16:20 WBC RBC Hgb Hct MCV MCH MCHC RDW Plt Count MPV Sodium Potassium Chloride Carbon Dioxide Anion Gap BUN Creatinine Est GFR (CKD-EPI)AfAm Est GFR (CKD-EPI)NonAf POC Glucometer [phone] Random Glucose Calcium Total Bilirubin AST ALT Alkaline Phosphatase Total Protein Albumin Urine Color Urine Appearance Urine pH Ur Specific [place] Urine Protein Urine Glucose (UA) Urine Ketones Urine Blood Urine Nitrite Urine Bilirubin Urine Urobilinogen Ur Leukocyte Esterase Urine WBC (Auto) Urine RBC (Auto) Urine Casts (Auto) U Epithel Cells (Auto) Urine Bacteria (Auto) RPR Titer 10/03/19 10/04/19 10/04/19 20:23 06:26 10:46 WBC RBC Hgb Hct MCV MCH MCHC RDW Plt Count MPV Sodium Potassium Chloride Carbon Dioxide Anion Gap BUN Creatinine Est GFR (CKD-EPI)AfAm Est GFR (CKD-EPI)NonAf POC Glucometer [phone] Random Glucose Calcium Total Bilirubin AST ALT Alkaline Phosphatase Total Protein Albumin Urine Color Urine Appearance Urine pH Ur Specific [place] Urine Protein Urine Glucose (UA) Urine Ketones Urine Blood Urine Nitrite Urine Bilirubin Urine Urobilinogen Ur Leukocyte Esterase Urine WBC (Auto) Urine RBC (Auto) Urine Casts (Auto) U Epithel Cells (Auto) Urine Bacteria (Auto) RPR Titer 10/04/19 10/04/19 10/05/19 16:31 20:38 06:20 WBC RBC Hgb Hct MCV MCH MCHC RDW Plt Count MPV Sodium Potassium Chloride Carbon Dioxide Anion Gap BUN Creatinine Est GFR (CKD-EPI)AfAm Est GFR (CKD-EPI)NonAf POC Glucometer [phone] Random Glucose Calcium Total Bilirubin AST ALT Alkaline Phosphatase Total Protein Albumin Urine Color Urine Appearance Urine pH Ur Specific [place] Urine Protein Urine Glucose (UA) Urine Ketones Urine Blood Urine Nitrite Urine Bilirubin Urine Urobilinogen Ur Leukocyte Esterase Urine WBC (Auto) Urine RBC (Auto) Urine Casts (Auto) U Epithel Cells (Auto) Urine Bacteria (Auto) RPR Titer 10/05/19 10/05/19 10/05/19 11:02 16:37 20:30 WBC RBC Hgb Hct MCV MCH MCHC RDW Plt Count MPV Sodium Potassium Chloride Carbon Dioxide Anion Gap BUN Creatinine Est GFR (CKD-EPI)AfAm Est GFR (CKD-EPI)NonAf POC Glucometer [phone] Random Glucose Calcium Total Bilirubin AST ALT Alkaline Phosphatase Total Protein Albumin Urine Color Urine Appearance Urine pH Ur Specific [place] Urine Protein Urine Glucose (UA) Urine Ketones Urine Blood Urine Nitrite Urine Bilirubin Urine Urobilinogen Ur Leukocyte Esterase Urine WBC (Auto) Urine RBC (Auto) Urine Casts (Auto) U Epithel Cells (Auto) Urine Bacteria (Auto) RPR Titer 10/06/19 10/06/19 10/06/19 07:08 10:40 16:16 WBC RBC Hgb Hct MCV MCH MCHC RDW Plt Count MPV Sodium Potassium Chloride Carbon Dioxide Anion Gap BUN Creatinine Est GFR (CKD-EPI)AfAm Est GFR (CKD-EPI)NonAf POC Glucometer [phone] Random Glucose Calcium Total Bilirubin AST ALT Alkaline Phosphatase Total Protein Albumin Urine Color Urine Appearance Urine pH Ur Specific [place] Urine Protein Urine Glucose (UA) Urine Ketones Urine Blood Urine Nitrite Urine Bilirubin Urine Urobilinogen Ur Leukocyte Esterase Urine WBC (Auto) Urine RBC (Auto) Urine Casts (Auto) U Epithel Cells (Auto) Urine Bacteria (Auto) RPR Titer 10/06/19 10/07/19 10/07/19 22:20 06:23 11:06 WBC RBC Hgb Hct MCV MCH MCHC RDW Plt Count MPV Sodium Potassium Chloride Carbon Dioxide Anion Gap BUN Creatinine Est GFR (CKD-EPI)AfAm Est GFR (CKD-EPI)NonAf POC Glucometer [phone] Random Glucose Calcium Total Bilirubin AST ALT Alkaline Phosphatase Total Protein Albumin Urine Color Urine Appearance Urine pH Ur Specific [place] Urine Protein Urine Glucose (UA) Urine Ketones Urine Blood Urine Nitrite Urine Bilirubin Urine Urobilinogen Ur Leukocyte Esterase Urine WBC (Auto) Urine RBC (Auto) Urine Casts (Auto) U Epithel Cells (Auto) Urine Bacteria (Auto) RPR Titer 10/07/19 10/07/19 10/08/19 16:29 20:40 06:36 WBC RBC Hgb Hct MCV MCH MCHC RDW Plt Count MPV Sodium Potassium Chloride Carbon Dioxide Anion Gap BUN Creatinine Est GFR (CKD-EPI)AfAm Est GFR (CKD-EPI)NonAf POC Glucometer [phone] Random Glucose Calcium Total Bilirubin AST ALT Alkaline Phosphatase Total Protein Albumin Urine Color Urine Appearance Urine pH Ur Specific [place] Urine Protein Urine Glucose (UA) Urine Ketones Urine Blood Urine Nitrite Urine Bilirubin Urine Urobilinogen Ur Leukocyte Esterase Urine WBC (Auto) Urine RBC (Auto) Urine Casts (Auto) U Epithel Cells (Auto) Urine Bacteria (Auto) RPR Titer - Treatment Discharge Condition: Discharge condition good Hospital Course: Rehabilitated safely CD aftercare referral accepted - Medication Discharge Medications: Ambulatory Orders Sertraline HCl [Zoloft -] 50 mg PO DAILY 03/21/19 Clotrimazole 10 ml TP ASDIR #1 bottle 04/08/19 Clotrimazole [Jock Itch Relief] 15 gm TP BID #1 cream..g. 04/08/19 Diphenhydramine [Benadryl Capsule -] 25 mg PO HS PRN #30 capsule 06/06/19 Ergocalciferol [Vitamin D2] 50,000 unit PO WEEKLY #4 capsule 06/06/19 Fluocinonide 0.05% Cream [Lidex 0.05% Cream -] 1 applic TP BID #1 tube 06/06/19 Ibuprofen [Motrin -] 600 mg PO PRN PRN #30 tablet 06/06/19 Leuprolide Acetate [Lupron Depot 7.5MG -] 7.5 mg IM MONTHLY #1 kit 06/06/19 Multivitamins [Multivit ([facility] Formulary)] 1 tab PO DAILY #30 tab 06/06/19 Ofloxacin Otic [Floxin Otic -] 1 drop AD BID 09/27/19 Aspirin [ASA -] 81 mg PO DAILY #14 tab.chew 10/08/19 Atorvastatin Ca [Lipitor] 20 mg PO HS #14 tablet 10/08/19 Calcium Carbonate/Vitamin D3 [Calcium 500-Vit D3 200 Caplet] 1 each PO BID #30 tablet 10/08/19 Enalapril Maleate [Vasotec -] 2.5 mg PO DAILY #14 tablet 10/08/19 Gabapentin [Neurontin -] 800 mg PO TID #45 capsule 10/08/19 Insulin Glargine,Hum.rec.anlog [Basaglar Kwikpen U-100] 30 unit SQ BID #1 insuln.pen 10/08/19 Insulin Lispro [Admelog Solostar] 20 unit SQ TID #1 insuln.pen 10/08/19 - Medication-Assisted Treatment (MAT) Medication-Assisted Treatment (MAT): No - Discharge Instructions Diet, activity, other medical instructions: Diet:LAVON,Low Fat Activity:oob ad cristian Other medical instructions:follow up with CD aftercare recommendations as scheduled. follow up with primary care /specialist provider(s) for medical management as scheduled. Encouraged pt to keep/reschedule appointments as recommended with his doctors. Primary Care Location: PCP: Dr. Kaitlin Jiménez [facility] [address] [place] [address] [address]. Hanna [facility] [phone] or [phone] Next PCP Clinic Visit scheduled for 11/22/19(pt aware of time of appt). Pt to reschedule cardiology, ENT, foot clinic and ENT appointments. Pt to follow up with Urology Clinic for treatment management. - Diagnosis (1) Alcohol use disorder Status: Chronic (2) Arthritis of right knee Status: Chronic (3) Chronic low back pain Status: Chronic Qualifiers: Back pain laterality: unspecified (4) Cocaine use disorder Status: Chronic (5) Essential hypertension Status: Chronic (6) HLD (hyperlipidemia) Status: Chronic Qualifiers: Hyperlipidemia type: unspecified Qualified Code(s): E78.5 - Hyperlipidemia , unspecified (7) IDDM (insulin dependent diabetes mellitus) Status: Chronic (8) Neuropathy Status: Chronic (9) Nicotine dependence Status: Chronic Qualifiers: Nicotine product type: cigarettes Substance use status: uncomplicated Qualified Code(s): F17.210 - Nicotine dependence, cigarettes, uncomplicated (10) Prostatic cancer Status: Chronic (11) Shoulder pain, left Status: Chronic Qualifiers: Chronicity: chronic Qualified Code(s): M25.512 - Pain in left shoulder; G89.29 - Other chronic pain - Follow-up Referral Minutes to complete discharge: 35 - AMA Did Patient Leave Against Medical Advice: No
[2019-10-07] MEDS: PRENATAL VITAMINS W/ FOLIC ACID TABLET (FP) PO SCH (11:00)
[2019-10-07] MEDS: ASPIRIN 81 MG CHEWABLE TABLETS PO SCH (11:00)
[2019-10-07] MEDS: INSULIN (LEVEMIR) 100 UNITS/ML UNITS SQ SCH ×2 (11:01→22:10)
[2019-10-07] MEDS: BACITRACIN 0.9 GM PACKET TP SCH ×2 (11:01→22:07)
[2019-10-07] MEDS: OFLOXACIN 0.3% OTIC SOLUTION 5 ML BOTTLE AD SCH ×2 (11:01→22:18)
[2019-10-07] MEDS: FLUOCINONIDE 0.05% CREAM (15 GM TUBE) TP SCH ×2 (11:02→22:16)
[2019-10-07] MEDS: CLOTRIMAZOLE 1% CREAM 15 GM TUBE TP SCH ×2 (11:02→22:16)
[2019-10-07] MEDS: ENALAPRIL MALEATE 2.5 MG TABLET (FP) PO SCH (11:03)
[2019-10-07] MEDS: CALCIUM 500MG/VIT-D 200 UNITS COMBO TABLET (FP) PO SCH ×2 (11:03→22:08)
[2019-10-07] MEDS: COLLOIDAL OATMEAL 1 BAR EACH TP PRN (11:06)
[2019-10-07] MEDS: THIAMINE HCL 100 MG TABLET (FP) PO SCH (22:08)
[2019-10-07] MEDS: ATORVASTATIN CA 20 MG TABLET (FP) PO SCH (22:08)
[2019-10-07] MEDS: diphenhydrAMINE HCL 25 MG CAPSULE (FP) PO PRN (22:12)
[2019-10-08] MEDS: INSULIN SLIDING SCALE (NOVOLOG) 1 VIAL SQ SCH (06:39)
[2019-10-08] MEDS ORDERED: INSULIN (NOVOLOG) ASPART 100 UNITS/ML 10ML VIAL ONE (06:40)
[2019-10-08] MEDS: GABAPENTIN 400 MG CAPSULE PO SCH (06:40)
[2019-10-08] MEDS: ACETAMINOPHEN 325 MG TABLET (FP) PO PRN (06:42)
[2019-10-08] MEDS: LOPERAMIDE HCL 2 MG CAPSULE PO PRN (07:30)
[2019-10-08 07:47] VITALS: BP 129/79; PULSE 90; TEMP 97.8
[2019-10-08] MEDS: PRENATAL VITAMINS W/ FOLIC ACID TABLET (FP) PO SCH (09:35)
[2019-10-08] MEDS: ASPIRIN 81 MG CHEWABLE TABLETS PO SCH (09:35)
[2019-10-08] MEDS: OFLOXACIN 0.3% OTIC SOLUTION 5 ML BOTTLE AD SCH (09:35)
[2019-10-08] MEDS: CALCIUM 500MG/VIT-D 200 UNITS COMBO TABLET (FP) PO SCH (09:36)
[2019-10-08] MEDS: CLOTRIMAZOLE 1% CREAM 15 GM TUBE TP SCH (09:36)
[2019-10-08] MEDS: FLUOCINONIDE 0.05% CREAM (15 GM TUBE) TP SCH (09:36)
[2019-10-08] MEDS: ENALAPRIL MALEATE 2.5 MG TABLET (FP) PO SCH (09:37)
[2019-10-08] MEDS: IBUPROFEN 400 MG TABLET (FP) PO PRN (09:37)
[2019-10-08] MEDS: BACITRACIN 0.9 GM PACKET TP SCH (09:38)
[2019-10-08] MEDS: INSULIN (LEVEMIR) 100 UNITS/ML UNITS SQ SCH (09:39)
== END 2019-10-08 10:38 | disposition home or self-care (01) | DRG 772 ==
LOC: YASAS 14:06 → Y5N 17:47
PROVIDERS: ADMIT Allergy & Immunology; ATTEND Allergy & Immunology
PROC: HZ42ZZZ Group Counseling for Substance Abuse Treatment, Cognitive-Behavioral (ICD-10-PCS; principal; 2019-09-26)
DX: F10.20 Alcohol dependence, uncomplicated (principal); F14.20 Cocaine dependence, uncomplicated; F16.20 Hallucinogen dependence, uncomplicated; F17.210 Nicotine dependence, cigarettes, uncomplicated; F19.282 Other psychoactive substance dependence with psychoactive substance-induced sleep disorder; F32.9 Major depressive disorder, single episode, unspecified; G62.9 Polyneuropathy, unspecified; L03.115 Cellulitis of right lower limb; I10 Essential (primary) hypertension; E78.5 Hyperlipidemia, unspecified; E11.9 Type 2 diabetes mellitus without complications; Z79.4 Long term (current) use of insulin; C61 Malignant neoplasm of prostate; M13.861 Other specified arthritis, right knee; M54.5 Low back pain; M25.512 Pain in left shoulder; G89.29 Other chronic pain; Z88.0 Allergy status to penicillin; Z91.013 Allergy to seafood; Z59.0 Homelessness
CPT/HCPCS: 36415; 71046-TC-FY; 80053; 81003; 82962; 85027; 86593

== ENCOUNTER 2020-03-14 08:22 | Inpatient (IN) | payer OTHER ==
--- NOTE | 2020-03-14 09:38 | BHS.RME ---
Substance Use & Tx History - Substance Use History Alcohol Substance amount: 6 packs of 12 ozs of beer Frequency of use: Daily Substance route: Oral Date of Last Use: 03/13/20 Cocaine- Powder Substance amount: 40$ Frequency of use: Less than 3 times per week Substance route: Inhalation (ex: sniffing or snorting) Date of Last Use: 03/12/20 PCP Substance amount: 30$ Frequency of use: Daily Substance route: Smoking Date of Last Use: 03/13/20 - Last Treatment Date of last treatment: 09/26/19 to 10/08/19 Where was last treatment: Rehab Physical/Psych/Mental Status - Behavior Eye Contact: Normal - Cooperativeness Cooperativeness: Cooperative - Thinking Thought Processes: Logical Thought content: Future oriented - Physical Health Problems Is patient presently having any pain?: No Does patient presently have any injuries (include location): No Does patient currently have a fever: No CIWA Nausea/Vomitin Muscle Tremors: 3 Anxiety: 2 Agitation: 3 Paroxysmal Sweats: No Perspiration Orientation: 0-Oriented Tacttile Disturbances: 1-Very Mild Itch/Numbness Auditory Disturbances: 0-None Visual Disturbances: 0-None Headache: 2-Mild CIWA-Ar Total Score: 13
--- NOTE | 2020-03-14 09:46 | HP ---
CIWA Score Nausea/Vomitin Muscle Tremors: 3 Anxiety: 2 Agitation: 3 Paroxysmal Sweats: No Perspiration Orientation: 0-Oriented Tacttile Disturbances: 1-Very Mild Itch/Numbness Auditory Disturbances: 0-None Visual Disturbances: 0-None Headache: 2-Mild CIWA-Ar Total Score: 13 - Admission Criteria OASAS Guidelines: Admission for Medically Managed Detox: Requires at least one of the followin. CIWA greater than 12 2. Seizures within the past 24 hours 3. Delirium tremens within the past 24 hours 4. Hallucinations within the past 24 hours 5. Acute intervention needed for co occurring medical disorder 6. Acute intervention needed for co occurring psychiatric disorder 7. Severe withdrawal that cannot be handled at a lower level of care (continued vomiting, continued diarrhea, abnormal vital signs) requiring intravenous medication and/or fluids 8. Admitting History and Physical - Admission Chief Complaint: i need help to stop drinking alcohol and drug History of Present Illness: this 55 years old male with alcohol,cocaine and pcp abused seeking detox History Source: Patient Limitations to Obtaining History: No Limitations - Past Medical History Cardiovascular: Yes: HTN Psych: Yes: Bipolar Endocrine: Yes: Diabetes Mellitus Additional Past Medical History: cancer of prostate - Past Surgical History Past Surgical History: Yes: Appendectomy (in 1985) Additional Past Surgical History: neuropathy - Smoking History Smoking history: Current every day smoker Have you smoked in the past 12 months: Yes Aproximately how many cigarettes per day: 15 - Alcohol/Substance Use Hx Alcohol Use: Yes (h/o alcohol abuse) History of Substance Use: reports: Cocaine Date of Last Use: 03/13/20 - Social History Usual Living Arrangement: Yes: Other (homeless) Do you think of yourself as: Straight/Heterosexual ADL: Support Services Occupation: unemployed History of Recent Travel: No Other Social History: hoeless,unemployed,no legal issue,positive eye strip feeder Admission ROS [facility] - HPI Chief Complaint: i need help to stop drinking alcohol and drugs Allergies/Adverse Reactions: Allergies Allergy/AdvReac Type Severity Reaction Status Date / Time Penicillins Allergy Severe Rash Verified 03/14/20 10:38 pork derived (porcine) Allergy Severe Hives Verified 03/14/20 10:38 History of Present Illness: this 55 years old male with alcohol dependence,cocaine and pcp,seeking detox multiple admissions in detox and rehab,last rehab 09/26/19 to 10/08/19 history of hypertension,hyperlipidemia, iddm,neuropathy cancer of prostate no treatment now anxiety,depression unemployed,homeless,positive eye strip feeder no significant period of sobriety Exam Limitations: No Limitations - Ebola screening Have you traveled outside of the country in the last 21 days: No Have you had contact with anyone from an Ebola affected area: No Have you been sick,other than usual withdrawal symptoms: No Do you have a fever: No - Review of Systems Constitutional: Loss of Appetite, Malaise, Night Sweats, Changes in sleep, Weakness, Unintentional Wgt. Loss EENT: reports: Nose Congestion Respiratory: reports: No Symptoms reported Cardiac: reports: No Symptoms Reported GI: reports: Nausea, Poor Appetite, Abdominal cramping : reports: No Symptoms Reported Musculoskeletal: reports: Back Pain, Muscle Pain Integumentary: reports: Dryness Neuro: reports: Headache, Tremors Endocrine: reports: No Symptoms Reported Hematology: reports: No Symptoms Reported Psychiatric: reports: No Sypmtoms Reported, Judgement Intact, Mood/Affect Appropiate, Orientated x3 Patient History - Patient Medical History Hx Anemia: No Hx Asthma: No Hx Chronic Obstructive Pulmonary Disease (COPD): No Hx Cancer: Yes (prostate cancer on leuprolide) Hx Cardiac Disorders: No Hx Congestive Heart Failure: No Hx Hypertension: No Hx Hypercholesterolemia: Yes (no med) Hx Pacemaker: No HX Cerebrovascular Accident: No Hx Seizures: No Hx Dementia: No Hx Diabetes: Yes (non compliance) Hx Gastrointestinal Disorders: No Hx Liver Disease: No Hx Genitourinary Disorders: No Hx Sexually Transmitted Disorders: No Hx Renal Disease (ESRD): No Hx Thyroid Disease: No Hx Human Immunodeficiency Virus (HIV): No (last 09/26/19 to 10/08/19) Hx Hepatitis C: No Hx Depression: Yes Hx Suicide Attempt: No Hx Bipolar Disorder: Yes Hx Schizophrenia: No Other Medical History: no suicidal,no homicidal - Patient Surgical History Past Surgical History: Yes Hx Neurologic Surgery: No Hx Cataract Extraction: No Hx Cardiac Surgery: No Hx Lung Surgery: No Hx Breast Surgery: No Hx Breast Biopsy: No Hx Abdominal Surgery: No Hx Appendectomy: Yes (1985) Hx Cholecystectomy: No Hx Genitourinary Surgery: No Hx Section: No Hx Orthopedic Surgery: No Anesthesia Reaction: No - PPD History Previous Implant?: Yes Documented Results: Negative w/o proof Implanted On Prior [facility] Admission?: Yes Date: 05/25/18 Results: 0 mm PPD to be Administered?: Yes - Smoking Cessation Smoking history: Current every day smoker Have you smoked in the past 12 months: Yes Aproximately how many cigarettes per day: 15 Hx Chewing Tobacco Use: No Initiated information on smoking cessation: Yes 'Breaking Loose' booklet given: 03/14/20 - Substance & Tx. History Hx Alcohol Use: Yes Hx Substance Use: Yes Substance Use Type: Alcohol, Cocaine Hx Substance Use Treatment: Yes ([facility] rehab 09/26/19 to 10/08/19) - Substances abused Alcohol Substance route: Oral Frequency: Daily Amount used: 6 packs of 12 ozs of beer Age of first use: 8 Date of last use: 03/13/20 Cocaine Substance route: Inhalation Frequency: 3-6 times per week Amount used: 40$ Age of first use: 16 Date of last use: 03/12/20 PCP Substance route: Smoking Frequency: Daily Amount used: 30$ Age of first use: 16 Date of last use: 03/13/20 Admission Physical Exam S - Vital Signs Vital Signs: t97.3,p75,r18,bp 100/69 - Physical General Appearance: Yes: Moderate Distress, Tremorous, Irritable, Sweating, Anxious HEENTM: Yes: Normal ENT Inspection, AMY, Pharynx Normal Respiratory: Yes: Within Normal Limits, Lungs Clear, Normal Breath Sounds, No Respiratory Distress Neck: Yes: Within Normal Limits, Supple, Trachea in good position Breast: Yes: Within Normal Limits, Axillae without masses, Breasts Symetrical Cardiology: Yes: Within Normal Limits, Regular Rhythm, Regular Rate, S1, S2 Abdominal: Yes: Within Normal Limits, Normal Bowel Sounds, Non Tender, Soft Genitourinary: Yes: Within Normal Limits Back: Yes: Muscle Spasm Musculoskeletal: Yes: full range of Motion, Back pain, Muscle Pain Extremities: Yes: Normal Range of Motion, Tremors, Other (absioin of right knee) Neurological: Yes: staff forester II-XII NML intact, Fully Oriented, Alert, Motor Strength 5/5 Integumentary: Yes: Dry - Diagnostic (1) Alcohol dependence with uncomplicated withdrawal Current Visit: No Status: Chronic (2) PCP (phencyclidine) abuse Current Visit: Yes Status: Acute (3) Cocaine dependence, uncomplicated Current Visit: No Status: Chronic (4) Phencyclidine dependence Current Visit: No Status: Chronic (5) IDDM (insulin dependent diabetes mellitus) Current Visit: Yes Status: Acute (6) Bipolar 2 disorder Current Visit: Yes Status: Acute (7) Essential hypertension Current Visit: No Status: Chronic (8) HLD (hyperlipidemia) Current Visit: No Status: Chronic Qualifiers: Hyperlipidemia type: unspecified Qualified Code(s): E78.5 - Hyperlipidemia, unspecified (9) Neuropathy Current Visit: No Status: Chronic (10) Nicotine dependence Current Visit: No Status: Chronic Qualifiers: Nicotine product type: cigarettes Substance use status: uncomplicated Qualified Code(s): F17.210 - Nicotine dependence, cigarettes, uncomplicated (11) Prostatic cancer Current Visit: No Status: Chronic (12) History of appendectomy Current Visit: No Status: Resolved Cleared for Admission S - Detox or Rehab [facility] Level of Care: Medically Managed Detox Regimen/Protocol: Librium Breathalyzer - Breathalyzer Breathalyzer: 0 Urine Drug Screen - Test Device Lot number: [id number] Expiration date: 01/11/21 - Control Is test valid?: Yes - Results Drug screen NEGATIVE: No Urine drug screen results: NAHOMY-Cocaine Inpatient Rehab Admission - Rehab Decision to Admit Inpatient rehab admission?: No
[2020-03-14] MEDS ORDERED: BISMUTH SUBSALICYLATE 524 MG/30 ML UD PO PRN (10:06)
[2020-03-14] MEDS ORDERED: ACETAMINOPHEN 325 MG TABLET (FP) PO PRN ×2 (10:06)
[2020-03-14] MEDS ORDERED: MAGNESIUM CITRATE 300 ML BOTTLE PO PRN (10:06)
[2020-03-14] MEDS ORDERED: ONDANSETRON *ODT* 4 MG TABLET SL ONE (10:06)
[2020-03-14] MEDS ORDERED: MAG HYDROX/AL HYDROX/SIMETH 30 ML UNIT-DOSE CUP PO PRN (10:06)
[2020-03-14] MEDS ORDERED: IBUPROFEN 400 MG TABLET (FP) PO PRN (10:06)
[2020-03-14] MEDS ORDERED: NICOTINE POLACRILEX 2 MG GUM BUC PRN (10:06)
[2020-03-14] MEDS ORDERED: MAGNESIUM HYDROX 2400MG/30ML ORAL SUSPENSION 30 ML CUP PO PRN (10:06)
[2020-03-14] MEDS ORDERED: METHOCARBAMOL 500 MG TABLET PO PRN (10:06)
[2020-03-14] MEDS ORDERED: chlordiazePOXIDE HCL 25 MG CAPSULE PO PRN (10:06)
[2020-03-14] MEDS ORDERED: MENTHOL/PHENOL 1 EACH UD MM PRN (10:06)
[2020-03-14 10:58] VITALS: BMI 25.7
[2020-03-14] MEDS ORDERED: diphenhydrAMINE HCL 50 MG CAPSULE PO PRN (11:37)
[2020-03-14] MEDS ORDERED: COLLOIDAL OATMEAL 1 BAR EACH TP PRN (12:37)
[2020-03-14] MEDS: hydrOXYzine PAMOATE 25 MG CAPSULE (FP) PO SCH ×3 (13:57→22:26)
[2020-03-14] MEDS: GABAPENTIN 400 MG CAPSULE PO SCH ×2 (13:57→22:26)
[2020-03-14] MEDS: ERGOCALCIFEROL (VIT D2) 50,000 UNIT (1.25 MG) CAPSULE PO SCH (13:57)
[2020-03-14] MEDS ORDERED: INSULIN (NOVOLOG) ASPART 100 UNITS/ML 10ML VIAL ONE (16:29)
[2020-03-14] MEDS: INSULIN (NOVOLOG) ASPART 100 UNITS/ML 10ML VIAL SQ SCH ×2 (16:29→22:31)
[2020-03-14] MEDS: chlordiazePOXIDE HCL 25 MG CAPSULE PO SCH ×2 (17:48→22:27)
[2020-03-14 18:01] LABS: HEMATOCRIT 46.8 % (35.4-49); HEMOGLOBIN 15.7 GM/dL (11.7-16.9); MCH 32.7 pg (25.7-33.7); MCHC 33.7 g/dl (32.0-35.9); MEAN CELL VOLUME 97.1 fl (80-96); MEAN PLT VOLUME 9.5 fl (7.5-11.1); PLATELET COUNT 244 K/MM3 (134-434); RBC 4.82 M/mm3 (4.00-5.60); RDW 13.9 % (11.9-15.9); WHITE BLOOD COUNT 5.8 K/mm3 (4.0-10.0)
[2020-03-14 18:11] LABS: ALBUMIN 3.4 g/dl (3.4-5.0); BILIRUBIN,TOTAL 1.2 mg/dL (0.2-1); BLOOD UREA NITROGEN 15.6 mg/dL (7-18); CALCIUM 9.1 mg/dL (8.5-10.1); CREATININE 1.4 mg/dL (0.55-1.3); POTASSIUM 3.6 mmol/L (3.5-5.1); TOT PROT 7.2 g/dl (6.4-8.2)
[2020-03-14 21:27] VITALS: TEMP 98
[2020-03-14] MEDS ORDERED: MELATONIN 5 MG TABLETS PO SCH (22:00)
[2020-03-14] MEDS ORDERED: THIAMINE HCL 100 MG TABLET (FP) PO SCH (22:00)
[2020-03-14] MEDS ORDERED: ATORVASTATIN CA 40 MG TABLET (FP) PO SCH (22:00)
[2020-03-14] MEDS: BACITRACIN 0.9 GM PACKET TP SCH (22:26)
[2020-03-14] MEDS: CALCIUM 500MG/VIT-D 200 UNITS COMBO TABLET (FP) PO SCH (22:26)
[2020-03-14] MEDS: INSULIN (LEVEMIR) 100 UNITS/ML UNITS SQ SCH (22:28)
[2020-03-14] MEDS: FLUOCINONIDE 0.05% CREAM (15 GM TUBE) TP SCH (22:29)
[2020-03-14] MEDS: CLOTRIMAZOLE 1% CREAM 15 GM TUBE TP SCH (22:29)
--- NOTE | 2020-03-15 07:27 | PN ---
[facility] Progress Note Note: Patient reports that he fell in the bathroom hitting his forehead on the wall and landing on his back. He is complaining of severe low back pain, dizziness, weakness and palpitations. He denies chills, chest pain, abdominal pain, dysuria and loss of consciousness. Patient is noted with a bruise to the left side of his forehead. Fall was not witnessed. Fall protocol #1 initiated. His blood sugar is 199mg/dl and he is very lethargic, unable to get up from the floor. Patient is to be transferred to ER. Endorsed to Dr. Schaefer Vital Signs Temperature 98.0 F 03/15/20 07:39 Pulse Rate 124 H 03/15/20 07:39 Respiratory Rate 20 03/15/20 07:39 Blood Pressure 139/62 03/15/20 07:39 O2 Sat by Pulse Oximetry (%) 95 03/15/20 07:39 Laboratory Last Values WBC 5.8 K/mm3 (4.0-10.0) 03/14/20 10:10 RBC 4.82 M/mm3 (4.00-5.60) 03/14/20 10:10 Hgb 15.7 GM/dL (11.7-16.9) 03/14/20 10:10 Hct 46.8 % (35.4-49) 03/14/20 10:10 MCV 97.1 fl (80-96) H 03/14/20 10:10 MCH 32.7 pg (25.7-33.7) 03/14/20 10:10 MCHC 33.7 g/dl (32.0-35.9) 03/14/20 10:10 RDW 13.9 % (11.9-15.9) 03/14/20 10:10 Plt Count 244 K/MM3 (134-434) D 03/14/20 10:10 MPV 9.5 fl (7.5-11.1) 03/14/20 10:10 Sodium 140 mmol/L (136-145) 03/14/20 10:10 Potassium 3.6 mmol/L (3.5-5.1) 03/14/20 10:10 Chloride 110 mmol/L (98-107) H 03/14/20 10:10 Carbon Dioxide 25 mmol/L (21-32) 03/14/20 10:10 Anion Gap 5 MMOL/L (8-16) L 03/14/20 10:10 BUN 15.6 mg/dL (7-18) 03/14/20 10:10 Creatinine 1.4 mg/dL (0.55-1.3) H 03/14/20 10:10 Est GFR (CKD-EPI)AfAm 64.63 03/14/20 10:10 Est GFR (CKD-EPI)NonAf 55.77 03/14/20 10:10 POC Glucometer 199 UNITS (80-120) 03/15/20 07:26 Random Glucose 235 mg/dL (74-106) H 03/14/20 10:10 Hemoglobin A1c % 8.9 % (4.2-6.3) H 03/14/20 10:10 Calcium 9.1 mg/dL (8.5-10.1) 03/14/20 10:10 Total Bilirubin 1.2 mg/dL (0.2-1) H 03/14/20 10:10 AST 30 U/L (15-37) 03/14/20 10:10 ALT 29 U/L (13-61) 03/14/20 10:10 Alkaline Phosphatase 65 U/L (45-117) 03/14/20 10:10 Total Protein 7.2 g/dl (6.4-8.2) 03/14/20 10:10 Albumin 3.4 g/dl (3.4-5.0) 03/14/20 10:10 Syphilis Serology Non-reactive (NONREACTIVE) 03/14/20 10:10 Action: Transfer patient to [facility] for further evaluation Endorsed to Dr Schaefer
[2020-03-15 07:41] VITALS: BP 139/62; PULSE 124
[2020-03-15] MEDS: chlordiazePOXIDE HCL 25 MG CAPSULE PO SCH ×2 (08:56→11:15)
[2020-03-15] MEDS: GABAPENTIN 400 MG CAPSULE PO SCH ×2 (08:56→15:05)
[2020-03-15] MEDS: INSULIN (NOVOLOG) ASPART 100 UNITS/ML 10ML VIAL SQ SCH ×2 (08:57→11:15)
[2020-03-15] MEDS: hydrOXYzine PAMOATE 25 MG CAPSULE (FP) PO SCH ×3 (08:57→15:05)
--- NOTE | 2020-03-15 09:54 | CONSULT ---
[facility] Psychiatric Consult - Data Date of interview: 03/15/20 Admission source: Self-referred Identifying data: Mr Stevens is a 55 years old single Black male, father of 5 children, unemployed, homeless seeking detox treatment for alcohol, cocaine and phencyclidine Substance Abuse History: Reports history of alcohol, cocaine and pcp use. Refer to addiction counselor's summary for further information Medical History: Significant for hypertension, dyslipidemia, type 2 diabetes mellitus, diabetic neuropathy, history of appendectomy in 1985 and treatment for prostate cancer. Smokes 15 cigarettes daily Psychiatric History: Patient is not currently available on the unit for psychatric interview. Apparently, he was transfered to [facility] after being found confused sitting on his bathroom floor in front of the toilet. Psychiatric Findings - Initial Treatment Plan Initial Treatment Plan: Please reconsult when patient is transferred back from [facility]
[2020-03-15] MEDS ORDERED: PRENATAL VITAMINS W/ FOLIC ACID TABLET (FP) PO SCH (10:00)
[2020-03-15] MEDS ORDERED: NICOTINE 21 MG/24 HOURS TOPICAL PATCH TD SCH (10:00)
[2020-03-15] MEDS ORDERED: ASPIRIN 81 MG CHEWABLE TABLETS PO SCH (10:00)
[2020-03-15] MEDS ORDERED: ENALAPRIL MALEATE 2.5 MG TABLET (FP) PO SCH (10:00)
[2020-03-15] MEDS: INSULIN (LEVEMIR) 100 UNITS/ML UNITS SQ SCH (11:13)
[2020-03-15] MEDS: BACITRACIN 0.9 GM PACKET TP SCH (11:13)
[2020-03-15] MEDS: CALCIUM 500MG/VIT-D 200 UNITS COMBO TABLET (FP) PO SCH (11:14)
[2020-03-15] MEDS: FLUOCINONIDE 0.05% CREAM (15 GM TUBE) TP SCH (11:14)
[2020-03-15] MEDS: CLOTRIMAZOLE 1% CREAM 15 GM TUBE TP SCH (11:14)
[2020-03-15] MEDS: ERGOCALCIFEROL (VIT D2) 50,000 UNIT (1.25 MG) CAPSULE PO SCH (11:15)
[2020-03-16] MEDS ORDERED: chlordiazePOXIDE HCL 25 MG CAPSULE PO SCH (05:00)
[2020-03-17] MEDS ORDERED: chlordiazePOXIDE HCL 10 MG CAPSULE PO PRN
[2020-03-17] MEDS ORDERED: chlordiazePOXIDE HCL 10 MG CAPSULE PO SCH (05:00)
[2020-03-18] MEDS ORDERED: chlordiazePOXIDE HCL 10 MG CAPSULE PO SCH (05:00)
[2020-03-19] MEDS ORDERED: chlordiazePOXIDE HCL 10 MG CAPSULE PO ONE (05:00)
[2020-03-21] MEDS ORDERED: ERGOCALCIFEROL (VIT D2) 50,000 UNIT (1.25 MG) CAPSULE PO SCH (11:17)
== END 2020-03-15 16:00 | disposition short-term general hospital (02) | DRG 774 ==
LOC: YASAS 08:22 → Y5N DETOX 10:47
PROVIDERS: ADMIT Allergy & Immunology; ATTEND Allergy & Immunology
PROC: HZ2ZZZZ Detoxification Services for Substance Abuse Treatment (ICD-10-PCS; principal; 2020-03-14)
DX: F10.230 Alcohol dependence with withdrawal, uncomplicated (principal); F14.20 Cocaine dependence, uncomplicated; F16.20 Hallucinogen dependence, uncomplicated; F17.210 Nicotine dependence, cigarettes, uncomplicated; F31.81 Bipolar II disorder; I10 Essential (primary) hypertension; E11.9 Type 2 diabetes mellitus without complications; E78.5 Hyperlipidemia, unspecified; C61 Malignant neoplasm of prostate; R53.83 Other fatigue; M54.5 Low back pain; R42 Dizziness and giddiness; R00.2 Palpitations; S00.83XA Contusion of other part of head, initial encounter; W01.198A Fall on same level from slipping, tripping and stumbling with subsequent striking against other object, initial encounter; Y93.01 Activity, walking, marching and hiking; Y92.231 Patient bathroom in hospital as the place of occurrence of the external cause; Z79.4 Long term (current) use of insulin; Z88.0 Allergy status to penicillin; Z91.14 Patient's other noncompliance with medication regimen; Z56.0 Unemployment, unspecified; Z59.0 Homelessness
CPT/HCPCS: 36415; 80053; 82962; 83036; 85027; 86780; Q0162; U0003

== ENCOUNTER 2020-03-15 08:47 | Emergency (ER) | payer OTHER ==
[2020-03-15 09:26] VITALS: BP 104/76; PULSE 70; TEMP 98.2; BMI 29.5
--- NOTE | 2020-03-15 10:43 | PDOC ---
History of Present Illness - General Chief Complaint: Injury Stated Complaint: FALL Time Seen by Provider: 03/15/20 09:29 - History of Present Illness Initial Comments: 55 yo male with PMH of substance abuse (alcohol, PCP), withdrawal seizures, prostate cancer presents after a syncopal fall. He was at [facility] when he had a syncopal event leading to a fall. He was using alcohol and PCP this morning prior to the fall. He endorses head pain, left shoulder pain, right knee pain. He was able to ambulate. He is unable to see out of his right eye. He denies headache, cp, sob, n/v/d. He has never had a HI or stroke in the past. Past History - Medical History Allergies/Adverse Reactions: Allergies Allergy/AdvReac Type Severity Reaction Status Date / Time Penicillins Allergy Severe Rash Verified 03/15/20 09:26 pork derived (porcine) Allergy Severe Hives Verified 03/15/20 09:26 Home Medications: Ambulatory Orders Sertraline HCl [Zoloft -] 50 mg PO DAILY 03/21/19 Clotrimazole [Jock Itch Relief] 15 gm TP BID #1 cream..g. 04/08/19 Diphenhydramine [Benadryl Capsule -] 25 mg PO HS PRN #30 capsule 06/06/19 Ergocalciferol [Vitamin D2] 50,000 unit PO WEEKLY #4 capsule 06/06/19 Fluocinonide 0.05% Cream [Lidex 0.05% Cream -] 1 applic TP BID #1 tube 06/06/19 Ibuprofen [Motrin -] 600 mg PO PRN PRN #30 tablet 06/06/19 Leuprolide Acetate [Lupron Depot 7.5MG -] 7.5 mg IM MONTHLY #1 kit 06/06/19 Multivitamins [Multivit ([facility] Formulary)] 1 tab PO DAILY #30 tab 06/06/19 Aspirin [ASA -] 81 mg PO DAILY #14 tab.chew 10/08/19 Atorvastatin Ca [Lipitor] 20 mg PO HS #14 tablet 10/08/19 Calcium Carbonate/Vitamin D3 [Calcium 500-Vit D3 200 Caplet] 1 each PO BID #30 tablet 10/08/19 Enalapril Maleate [Vasotec -] 2.5 mg PO DAILY #14 tablet 10/08/19 Gabapentin [Neurontin -] 800 mg PO TID #45 capsule 10/08/19 Diclofenac Sodium [Voltaren] 100 gm TP PRN 03/14/20 Insulin Glargine,Hum.rec.anlog [Basaglar Kwikpen U-100] 40 unit SQ BID 03/14/20 Insulin Lispro [Admelog Solostar] 35 unit SQ TID 03/14/20 Lidocaine HCl [Aspercreme] 76.5 gm TP PRN 03/14/20 Anemia: No Asthma: No Cancer: Yes (prostate cancer on leuprolide) Cardiac Disorders: No CVA: No COPD: No CHF: No Dementia: No Diabetes: Yes (non compliance) GI Disorders: No Disorders: No HTN: No Hypercholesterolemia: Yes (no med) Kidney Stones: No Liver Disease: No Psychiatric Problems: Yes (pcp/alcohol/smoking) Seizures: No Thyroid Disease: No - Surgical History Abdominal Surgery: No Appendectomy: Yes (1985) Cardiac Surgery: No Cholecystectomy: No Lung Surgery: No Neurologic Surgery: No Orthopedic Surgery: No - Reproductive History Testicular Surgery: No - Psycho-Social/Smoking History Smoking History: Never smoked Have you smoked in the past 12 months: No Number of Cigarettes Smoked Daily: 15 'Breaking Loose' booklet given: 03/14/20 - Substance Abuse Hx (Audit-C & DAST Scrn) How often the patient has a drink containing alcohol: 4 0r more times/wk Score: In Men: 4 or > Positive; In Women: 3 or > Positive: 4 Screen Result (Pos requires Nsg. Audit-10AR): Positive In the last yr the pt used illegal drug/Rx for NonMed reason: Yes Score: Yes response is considered Positive: 1 Screen Result (Positive result requires Nsg. DAST-10): Positive Review of Systems - Review of Systems Able to Perform ROS?: Yes Constitutional: No: Chills, Fever HEENTM: Yes: Eye Pain (Right), Other (Unable to see out of right eye) Respiratory: No: Cough, Shortness of Breath Cardiac (ROS): Yes: Syncope. No: Chest Pain, Irregular Heart Rate, Pal pitations, Chest Tightness ABD/GI: No: Diarrhea, Nausea, Vomiting : No: Dysuria, Discharge Musculoskeletal: Yes: Joint Pain, Muscle Weakness. No: Muscle Pain Integumentary: No: Erythema, Flushing, Lesions Neurological: Yes: Headache, Tingling. No: Ataxia Psychiatric: No: Anxiety, Depression, Mood Swings Endocrine: No: Intolerance to Cold, Intolerance to Heat *Physical Exam - Vital Signs Last Vital Signs Temp Pulse Resp BP Pulse Ox 98.2 F 70 16 104/76 100 03/15/20 08:50 03/15/20 08:50 03/15/20 08:50 03/15/20 08:50 03/15/20 08:50 - Physical Exam General Appearance: Yes: Appropriately Dressed, Apparent Distress, Disheveled. No: Alcohol on Breath HEENT: positive: EOMI, AMY, Other (Large pupils. No vision on right eye.) Neck: negative: Tender, Rigid Respiratory/Chest: positive: Lungs Clear, Normal Breath Sounds. negative: Chest Tender, Respiratory Distress Cardiovascular: positive: Regular Rhythm, Regular Rate, S1, S2. negative: Diastolic Murmur Gastrointestinal/Abdominal: positive: Flat, Soft, Other (absent rectal tone). negative: Tender Musculoskeletal: positive: Normal Inspection. negative: CVA Tenderness Extremity: positive: Normal Capillary Refill, Normal Inspection, Normal Range of Motion, Tender (left shoulder and right knee) Integumentary: positive: Normal Color, Dry, Warm Neurologic: positive: it application architect II-XII NML intact, Fully Oriented, Alert, Normal Mood/Affect ED Treatment Course - LABORATORY CBC & Chemistry Diagram: 03/15/20 10:30 03/15/20 10:30 Medical Decision Making - Medical Decision Making 55 yo male with PMH of substance abuse (alcohol, PCP), withdrawal seizures, prostate cancer presents after a syncopal fall. He endorses lumbar pain and monocular right eye vision loss. He has had an elevated WBC and an elevated Creatinine His rectal tone is absent on exam. He is wobbly on ambulation. Unable to pass stool/urine. His bladder has approximelty [address] scan of his head/cervical/lumbar was negative Pt is being transferred. 03/15/20 15:13 Discharge - Discharge Information Problems reviewed: Yes Clinical Impression/Diagnosis: Blind right eye, Decreased rectal sphincter tone Condition: Stable Disposition: TRANSFER ACUTE CARE/OTHER HOSP - Admission No - Follow up/Referral Referrals: Rambo Hilario MD [Primary Care Provider] - - Patient Discharge Instructions - Post Discharge Activity
[2020-03-15 11:04] LABS: BASO % 0.3 % (0-2.0); EOS % 0.1 % (0-4.5); HEMATOCRIT 47.3 % (35.4-49); HEMOGLOBIN 15.8 GM/dL (11.7-16.9); LYMPH % 12.8 % (8-40); MCH 32.6 pg (25.7-33.7); MCHC 33.4 g/dl (32.0-35.9); MEAN CELL VOLUME 97.6 fl (80-96); MEAN PLT VOLUME 9.6 fl (7.5-11.1); MONO % 6.9 % (3.8-10.2); NEUT % 79.9 % (42.8-82.8); PLATELET COUNT 231 K/MM3 (134-434); RBC 4.85 M/mm3 (4.00-5.60); WHITE BLOOD COUNT 14.5 K/mm3 (4.0-10.0)
[2020-03-15 11:11] LABS: INR 1.04 (0.83-1.09); PROTHROMBIN TIME (PATIENT) 12.3 SEC (9.7-13.0)
[2020-03-15 11:33] LABS: ALBUMIN 3.4 g/dl (3.4-5.0); BLOOD UREA NITROGEN 23.1 mg/dL (7-18); CALCIUM 9.8 mg/dL (8.5-10.1); CREATININE 2.4 mg/dL (0.55-1.3); POTASSIUM 4.2 mmol/L (3.5-5.1); TOT PROT 7.1 g/dl (6.4-8.2)
[2020-03-15] MEDS ORDERED: SODIUM CHLORIDE 1,000 ML IV STA (13:01)
--- NOTE | 2020-03-15 14:16 | PDOC ---
Documentation entered by Laura Schultz SCRIBE, acting as scribe for Sandeep Thompson MD. Sandeep Thompson MD: This documentation has been prepared by the Marion blackwood Xhesika, SCRIBE, under my direction and personally reviewed by me in its entirety. I confirm that the documentation accurately reflects all work, treatment, procedures, and medical decision making performed by me. Attending Attestation - Resident Resident Name: ShadySukhdevanshul - ED Attending Attestation I have performed the following: I have examined & evaluated the patient, The case was reviewed & discussed with the resident, I agree w/resident's findings & plan, Exceptions are as noted - HPI HPI: 03/15/20 09:12 The patient is a 55 year old male, with a significant PMH of IDDM, HTN. HLD, polysubstance abuse (ETOH, PCP (inhalation), and cocaine (inhalation), who presents to the emergency department BIBA from [facility] for headache, left shoulder pain, right knee pain s/p unwitnessed fall. Per [facility] note, the pt fell in bathroom hitting his forehead on the wall, landing on his back. Pt states he was using alcohol and PCP this morning prior to the fall. The patient denies chest pain, shortness of breath. Denies fever, chills, cough, nausea, vomiting, and constipation. Allergies: NKDA Past surgical history: Appendectomy in 1985 Social history: polysubstance abuse (ETOH, PCP (inhalation), and cocaine inhalation PCP: Rambo Vera - Physicial Exam PE: 03/15/20 14:13 Vitals: Triage Vital signs reviewed General Appearance: No acute distress, well nourished well developed, Head: Atraumatic, Eyes: Pupils equal reactive round, extraocular movement intact, no visual perception to right eye, unable to see light / movement/ painless vision loss. Cardiac: Regular rate and rhythym, no murmurs, no rubs, no gallops, Lungs: Clear to auscultation bilateral, good air movement bilaterally, Abdomen: Soft, non distended, normal bowel sounds, non tender to palpation Extremities: Full range of motion to all extremities, no cyanosis, clubbing, or edema Skin: Warm and dry, no rashes or lesions, no rash, no petechiae Musculoskeletal: Midline lumbar spine diffuse tenderness to palpation Neuro: Cranial Nerves 2-12 grossly intact, strength intact to all extremities, sensation intact to all extremities, unsteady gait. Refexes wnl, decreased rectal tone - Medical Decision Making 03/15/20 14:12 55 years old history of alcohol abuse comes from [facility] with syncope versus fall. On further review of systems patient has had multiple episodes of falls and syncope now complaining of moderate to severe back pain Imaging negative for acute pathology On initial examination pupils pupillary examination was normal equal round reactive pupils later during the course of the patient's ED visit patient complaining that he has no vision to his right eye upon waking this morning however failed to disclose this upon arrival On secondary survey patient also reporting difficulty urinating and voiding repeat neurologic examination reveals good strength good sensation intact reflexes but absent rectal tone unclear duration of this finding Given history of trauma multiple falls disparate neurologic findings Case discussed with neurosurgery and ophthalmology recommend transfer to trauma center for further evaluation Discharge - Discharge Information Problems reviewed: Yes Clinical Impression/Diagnosis: Decreased rectal sphincter tone, Vision loss Condition: Stable Disposition: TRANSFER ACUTE CARE/OTHER HOSP - Follow up/Referral Referrals: Rambo Hilario MD [Primary Care Provider] - - Patient Discharge Instructions - Post Discharge Activity
--- NOTE | 2020-03-16 09:58 | EKG ---
Test Reason : Blood Pressure : / mmHG Vent. Rate : 060 BPM Atrial Rate : 060 BPM P-R Int : 118 ms QRS Dur : 078 ms QT Int : 414 ms P-R-T Axes : 034 076 057 degrees QTc Int : 414 ms NORMAL SINUS RHYTHM NORMAL ECG WHEN COMPARED WITH ECG OF 27-FEB-2019 18:27, PREMATURE ATRIAL COMPLEXES ARE NO LONGER PRESENT LEFT ANTERIOR FASCICULAR BLOCK IS NO LONGER PRESENT MINIMAL CRITERIA FOR INFERIOR INFARCT ARE NO LONGER PRESENT Confirmed by [place] ([id number]) on 03/16/2020 9:57:55 AM Referred By: Confirmed By:Sandy [place]
== END 2020-03-15 15:45 | disposition short-term general hospital (02) ==
LOC: JER 08:47
PROC: 3E0337Z Introduction of Electrolytic and Water Balance Substance into Peripheral Vein, Percutaneous Approach (ICD-10-PCS; principal; 2020-03-15)
DX: K62.89 Other specified diseases of anus and rectum (principal); H54.7 Unspecified visual loss
CPT/HCPCS: 36415; 70450-TC; 72125-TC; 72131-TC; 80053; 82962; 84484; 85025; 85610; 85730; 86850; 86900; 86901; 93005; 93010; 99285-25

== ENCOUNTER 2020-04-15 17:38 | Inpatient (IN) | payer OTHER ==
[2020-04-15 18:26] VITALS: BMI 26.6
--- NOTE | 2020-04-15 18:38 | HP ---
CIWA Score Nausea/Vomitin Muscle Tremors: 1-None Visible, but [place] Anxiety: 3 Agitation: 3 Paroxysmal Sweats: 3 (Increased facial moisture) Orientation: 0-Oriented Tacttile Disturbances: 0-None Auditory Disturbances: 0-None Visual Disturbances: 0-None Headache: 0-None Present CIWA-Ar Total Score: 12 - Admission Criteria OASAS Guidelines: Admission for Medically Managed Detox: Requires at least one of the followin. CIWA greater than 12 2. Seizures within the past 24 hours 3. Delirium tremens within the past 24 hours 4. Hallucinations within the past 24 hours 5. Acute intervention needed for co occurring medical disorder 6. Acute intervention needed for co occurring psychiatric disorder 7. Severe withdrawal that cannot be handled at a lower level of care (continued vomiting, continued diarrhea, abnormal vital signs) requiring intravenous medication and/or fluids 8. Patient presents the following: CIWA greater than 12, Acute intervention needed for co-occurring med or psych disorder (DM,) Admission Criteria Met: Admission criteria met Admitting History and Physical - Past Medical History Cardiovascular: Yes: HTN Psych: Yes: Bipolar Endocrine: Yes: Diabetes Mellitus - Past Surgical History Past Surgical History: Yes: Appendectomy (in 1985) - Smoking History Smoking history: Never smoked Have you smoked in the past 12 months: No Aproximately how many cigarettes per day: 15 - Alcohol/Substance Use Hx Alcohol Use: Yes History of Substance Use: reports: Cocaine Date of Last Use: 03/13/20 - Social History ADL: Support Services Occupation: unemployed History of Recent Travel: No Admission ROS S - HPI Chief Complaint: My goal is to stop all drugs. I use alcohol, cocaine and PCP" Allergies/Adverse Reactions: Allergies Allergy/AdvReac Type Severity Reaction Status Date / Time Penicillins Allergy Severe Rash Verified 03/15/20 09:26 pork derived (porcine) Allergy Severe Hives Verified 03/15/20 09:26 History of Present Illness: 55 yo w/ multiple detoxes presents w/ alcohol withdrawal symptoms seeking detox. ANIYAH: 0.0 UTox: + BZO/NAHOMY Seizures - last November 2019 - unknown triggers - thinks it may be alcohol. Multiple blackouts. Denies overdoses. Alcohol use since age 8. Currently drinking 12 - 12 oz beers daily. Last drink last night. Cocaine use began at age 16. Uses 2-3 gm every 3 days - nasal. Last used yesterday. Denies BZO use. States it must be in the cocaine. PCP use began at age 24. Currently uses 1 bag q 3 days. Nicotine use began at age 14. Smokes 1/2 PPD. PMHx: DM, Painful Neuropathy, HTN; Chronic back pain, MHHx: Bipolar. Depression. Denies thoughts of harming self or others. Sees a community Psych. SHx: Domiciles. Self-employed. Current legal issues. Patient Name: Angelo Stevens Date: 1965 Address: [address] [place] [address] Sex: Male Rx Written Rx Dispensed Drug Quantity Days Supply Prescriber Name Payment Method Dispenser 03/11/2020 03/12/2020 oxycodone-acetaminophen 5-325 mg tab 40 7 Leandro Kaur [employer] [facility] Exam Limitations: No Limitations - Ebola screening Have you traveled outside of the country in the last 21 days: No (Denies COVID exposure) Have you had contact with anyone from an Ebola affected area: No Have you been sick,other than usual withdrawal symptoms: No Do you have a fever: No - Review of Systems Constitutional: Diaphoresis, Changes in sleep (Difficulty falling and staying asleep - takes benadryl and melatonin) EENT: reports: Blurred Vision Respiratory: reports: No Symptoms reported Cardiac: reports: No Symptoms Reported GI: reports: Diarrhea (watery, light brown) : reports: Burning, Dysuria (x 2 days), Other (Extended flow) Musculoskeletal: reports: Back Pain (Chronic low back pain - gets back injections - no pain at this time. Triggered by weather changes) Integumentary: reports: Bruising (Bruising on knees r/t multiple falls) Neuro: reports: Numbness (Both feet and finger tips), Seizure, Tremors Endocrine: reports: Increased Thirst Hematology: reports: No Symptoms Reported Psychiatric: reports: Judgement Intact, Mood/Affect Appropiate, Orientated x3, Agitated, Anxious, Depressed (Denies thoughts of harming self or others.) Patient History - Patient Medical History Hx Anemia: No Hx Asthma: No Hx Chronic Obstructive Pulmonary Disease (COPD): No Hx Cancer: Yes (prostate cancer on leuprolide) Hx Cardiac Disorders: No Hx Congestive Heart Failure: No Hx Hypertension: No Hx Hypercholesterolemia: Yes (no med) Hx Pacemaker: No HX Cerebrovascular Accident: No Hx Seizures: No Hx Dementia: No Hx Diabetes: Yes (non compliance) Hx Gastrointestinal Disorders: No Hx Liver Disease: No Hx Genitourinary Disorders: No Hx Sexually Transmitted Disorders: No Hx Renal Disease (ESRD): No Hx Thyroid Disease: No Hx Human Immunodeficiency Virus (HIV): No (last 09/26/19 to 10/08/19) Hx Hepatitis C: No Hx Depression: Yes Hx Suicide Attempt: No Hx Bipolar Disorder: Yes Hx Schizophrenia: No - Patient Surgical History Past Surgical History: Yes Hx Neurologic Surgery: No Hx Cataract Extraction: No Hx Cardiac Surgery: No Hx Lung Surgery: No Hx Breast Surgery: No Hx Breast Biopsy: No Hx Abdominal Surgery: No Hx Appendectomy: Yes (1985) Hx Cholecystectomy: No Hx Genitourinary Surgery: No Hx Section: No Hx Orthopedic Surgery: No Anesthesia Reaction: No - PPD History Previous Implant?: Yes Documented Results: Negative w/proof Date: 03/16/20 Results: 0 mm PPD to be Administered?: No - Smoking Cessation Smoking history: Never smoked Have you smoked in the past 12 months: No Aproximately how many cigarettes per day: 10 Hx Chewing Tobacco Use: No Initiated information on smoking cessation: Yes 'Breaking Loose' booklet given: 04/15/20 - Substance & Tx. History Hx Alcohol Use: Yes Hx Substance Use: Yes Substance Use Type: Alcohol, Cocaine, Tranquilizers (PCP) Hx Substance Use Treatment: Yes (detox, rehabs) Admission Physical Exam BHS - Vital Signs Vital Signs: Vital Signs - 24 hr 04/15/20 18:23 Temperature 98.0 F Pulse Rate 80 Respiratory 18 Rate Blood Pressure 107/72 - Physical General Appearance: Yes: Nourished, Mild Distress, Tremorous, Irritable, Sweating (Increased facial moisture), Anxious HEENTM: Yes: EOMI, Hearing grossly Normal, Normocephalic, Normal Voice, AMY, Pharynx Normal Respiratory: Yes: Lungs Clear, Normal Breath Sounds, No Respiratory Distress Neck: Yes: No masses,lesions,Nodules, Supple Breast: Yes: Breast Exam Deferred Cardiology: Yes: Regular Rhythm, Regular Rate, S1, S2 Abdominal: Yes: Non Tender, Flat, Soft, Increased Bowel Sounds Genitourinary: Yes: Burning, Frequency Back: Yes: Normal Inspection Musculoskeletal: Yes: full range of Motion, Gait Steady Extremities: Yes: Normal Capillary Refill, Tremors Neurological: Yes: [employer] II-XII NML intact, Fully Oriented, Alert, Motor Strength 5/5, Normal Mood/Affect, Normal Response Integumentary: Yes: Normal Color, Warm, Moist (Increased facial moisture), Other (Old bruising on knees) Lymphatic: Yes: Within Normal Limits - Diagnostic (1) Pain passing urine Current Visit: Yes Status: Acute Comment: x 2 days (2) IDDM (insulin dependent diabetes mellitus) Current Visit: Yes Status: Chronic (3) Alcohol dependence with uncomplicated withdrawal Current Visit: Yes Status: Acute (4) Chronic low back pain Current Visit: Yes Status: Chronic Qualifiers: Back pain laterality: unspecified Sciatica presence: unspecified whether sciatica present Qualified Code(s): M54.5 - Low back pain; G89.29 - Other chronic pain (5) Cocaine use disorder Current Visit: Yes Status: Chronic (6) Essential hypertension Current Visit: Yes Status: Chronic (7) Neuropathy Current Visit: Yes Status: Chronic (8) Nicotine dependence Current Visit: Yes Status: Chronic Qualifiers: Nicotine product type: cigarettes Substance use status: uncomplicated Qualified Code(s): F17.210 - Nicotine dependence, cigarettes, uncomplicated Cleared for Admission S - Detox or Rehab [facility] Level of Care: Medically Managed Detox Regimen/Protocol: Librium Claeared for Rehab Admission: No Breathalyzer - Breathalyzer Breathalyzer: 0 Urine Drug Screen - Test Device Lot number: [id number] Expiration date: 11/19/21 - Control Is test valid?: Yes - Results Drug screen NEGATIVE: No Urine drug screen results: NAHOMY-Cocaine, BZO-Benzodiazepines Inpatient Rehab Admission - Rehab Decision to Admit Inpatient rehab admission?: No
[2020-04-15] MEDS ORDERED: MAGNESIUM CITRATE 300 ML BOTTLE PO PRN (19:06)
[2020-04-15] MEDS ORDERED: ACETAMINOPHEN 325 MG TABLET (FP) PO PRN (19:06)
[2020-04-15] MEDS ORDERED: MAG HYDROX/AL HYDROX/SIMETH 30 ML UNIT-DOSE CUP PO PRN (19:06)
[2020-04-15] MEDS ORDERED: ONDANSETRON *ODT* 4 MG TABLET SL ONE (19:06)
[2020-04-15] MEDS ORDERED: MAGNESIUM HYDROX 2400MG/30ML ORAL SUSPENSION 30 ML CUP PO PRN (19:06)
[2020-04-15] MEDS ORDERED: MENTHOL/PHENOL 1 EACH UD MM PRN (19:06)
[2020-04-15] MEDS ORDERED: METHOCARBAMOL 500 MG TABLET PO PRN (19:06)
[2020-04-15] MEDS ORDERED: chlordiazePOXIDE HCL 25 MG CAPSULE PO PRN (19:38)
[2020-04-15] MEDS ORDERED: IBUPROFEN 600 MG TABLET (FP) PO PRN (21:45)
[2020-04-15] MEDS ORDERED: PATIENT'S OWN MEDICATION (NON-FORMULARY) (Insulin Glargine,Hum.Rec.Anlog [Basaglar Kwikpen SQ SCH (22:00)
[2020-04-15] MEDS: chlordiazePOXIDE HCL 25 MG CAPSULE PO SCH (22:13)
[2020-04-15] MEDS: MELATONIN 5 MG TABLETS PO SCH (22:13)
[2020-04-15] MEDS: THIAMINE HCL 100 MG TABLET (FP) PO SCH (22:13)
[2020-04-15] MEDS: GABAPENTIN 400 MG CAPSULE PO SCH (22:13)
[2020-04-16] MEDS: GABAPENTIN 400 MG CAPSULE PO SCH ×3 (06:38→22:41)
[2020-04-16] MEDS: chlordiazePOXIDE HCL 25 MG CAPSULE PO SCH ×4 (06:38→22:37)
[2020-04-16] MEDS: INSULIN SLIDING SCALE (NOVOLOG) 1 VIAL SQ SCH ×3 (06:39→17:28)
[2020-04-16] MEDS: BISMUTH SUBSALICYLATE 524 MG/30 ML UD PO PRN ×2 (09:28→23:22)
[2020-04-16] MEDS: ASPIRIN 81 MG CHEWABLE TABLETS PO SCH (10:20)
[2020-04-16] MEDS: NICOTINE 14 MG/24 HOURS TOPICAL PATCH TD SCH (10:20)
[2020-04-16] MEDS: PRENATAL VITAMINS W/ FOLIC ACID TABLET (FP) PO SCH (10:20)
[2020-04-16] MEDS: INSULIN (LEVEMIR) 100 UNITS/ML UNITS SQ SCH ×2 (10:23→22:36)
--- NOTE | 2020-04-16 10:23 | CONSULT ---
[facility] Psychiatric Consult - Data Date of interview: 04/16/20 Admission source: Self-refered Identifying data: Mr Stevens is a 55 years old Black male, father of 5 children, unemployed receiving food stamps, homeless seeking detox treatment for alcohol, cocaine and phencyclidine Substance Abuse History: Reports history of alcohol, cocaine and pcp use. Refer to addiction counselor's summary for further information Medical History: Significant for hypertension, dyslipidemia, type 2 diabetes mellitus, diabetic neuropathy, history of appendectomy in 1985 and treatment for prostate cancer. Smokes 15 cigarettes daily Psychiatric History: Patient is known for multiple previous admissions to this facility. He reports that his first psychiatric contact was in 1999 at an outpatient clinic in the [place], [place] due to depression in the context of family losses( of his mother in 1995 and his brother in 1998). He said that he was diagnosed with MDD and stated on psychotropic medications. Reports that since, he has been receiving psychiatric treatment on & off but adherence to OPD care and medications were suboptimal. Reports that his most recent OPD care was at a clinic in [place], [place] in February 2019. He said that he was prescribed Zoloft which he has been off since hestopped attending that clinic. Denies previous psychiatric hospitalization. Reports one previous suicide attempt via self mutilation of cutting himself while under the influence of sofi dust at the age of 21. At present, denies experiencing depressive symptoms, S/H ideations. However, reports sleeing poorly. Requests that benadryl in addition to Melatino be ordered for insomnia Physical/Sexual Abuse/Trauma History: Denies history of abuse as a child or DV relationship as an adult Additional Comment: Reports history of 5 previous arrests including 2 felony convictions. Denies being on parole/probation currently Mental Status Exam - Mental Status Exam Alert and Oriented to: Time, Place, Person Cognitive Function: Fair Patient Appearance: Disheveled Mood: Happy Affect: Appropriate Patient Behavior: Cooperative Speech Pattern: Clear Voice Loudness: Normal Thought Process: Intact, Goal Oriented Thought Disorder: Not Present Hallucinations: Denies Suicidal Ideation: Denies Homicidal Ideation: Denies Insight/Judgement: Poor Sleep: Poorly Appetite: Fair Muscle strength/Tone: Normal Gait/Station: Other (Uses a cane as ambulatory aid) Psychiatric Findings - Problem List ([place] 1, 2,3) (1) Depressive disorder Current Visit: No Status: Chronic (2) MDD (major depressive disorder) Current Visit: Yes Status: Ruled-out (3) Substance-induced sleep disorder Current Visit: No Status: Acute (4) Alcohol dependence with uncomplicated withdrawal Current Visit: Yes Status: Acute (5) Cocaine use disorder Current Visit: Yes Status: Acute (6) Phencyclidine abuse Current Visit: No Status: Acute (7) Nicotine dependence Current Visit: Yes Status: Chronic Qualifiers: Nicotine product type: cigarettes Substance use status: uncomplicated Qualified Code(s): F17.210 - Nicotine dependence, cigarettes, uncomplicated (8) Chronic low back pain Current Visit: Yes Status: Chronic Qualifiers: Back pain laterality: unspecified Sciatica presence: unspecified whether sciatica present Qualified Code(s): M54.5 - Low back pain; G89.29 - Other chronic pain (9) Essential hypertension Current Visit: Yes Status: Chronic (10) IDDM (insulin dependent diabetes mellitus) Current Visit: Yes Status: Chronic (11) Neuropathy Current Visit: Yes Status: Chronic (12) HLD (hyperlipidemia) Current Visit: No Status: Chronic Qualifiers: Hyperlipidemia type: unspecified Qualified Code(s): E78.5 - Hyperlipidemia, unspecified (13) Diabetic neuropathy Current Visit: Yes Status: Chronic - Initial Treatment Plan Initial Treatment Plan: 1) Start Benadryl 50 mg po HS for insomnia. 2) Continue Melatonin 5 mg po HS prn for insomnia. 3) Continue inpatient detoxification
--- NOTE | 2020-04-16 10:40 | PN ---
S CIWA - CIWA Score Nausea/Vomitin-No Nausea/No Vomiting Muscle Tremors: 3 Anxiety: 2 Agitation: 3 Paroxysmal Sweats: 2 Orientation: 0-Oriented Tacttile Disturbances: 0-None Auditory Disturbances: 0-None Visual Disturbances: 0-None Headache: 0-None Present CIWA-Ar Total Score: 10 S Progress Note (SOAP) Subjective: sweats i need my 800mg gabapentin for my neuropathy on both my feet agitation diarrhea interrupted sleep Objective: 04/16/20 10:38 Vital Signs Temperature 98.6 F 04/16/20 08:45 Pulse Rate 85 04/16/20 08:45 Respiratory Rate 20 04/16/20 08:45 Blood Pressure 116/75 04/16/20 08:45 O2 Sat by Pulse Oximetry (%) 98 04/16/20 08:45 Laboratory Tests 04/16/20 04/16/20 06:36 10:19 POC Glucometer 188 248 rest of labs pending aaox3 ambulating no acute distress Assessment: 04/16/20 10:39 withdrawals Plan: continue detox gabapentin 800mg tid ordered as per pt request increase fluids glucerna tid with meals monthly injection ordered for pt (LUPRON). pharmacy is made aware
[2020-04-16 10:57] LABS: HEMOGLOBIN 14.9 GM/dL (11.7-16.9); MCH 32.5 pg (25.7-33.7); MCHC 33.8 g/dl (32.0-35.9); MEAN CELL VOLUME 96.2 fl (80-96); MEAN PLT VOLUME 9.3 fl (7.5-11.1); PLATELET COUNT 216 K/MM3 (134-434); RBC 4.57 M/mm3 (4.00-5.60); RDW 13.2 % (11.9-15.9); WHITE BLOOD COUNT 5.1 K/mm3 (4.0-10.0)
[2020-04-16] MEDS: ENALAPRIL MALEATE 2.5 MG TABLET (FP) PO SCH (11:06)
[2020-04-16 11:13] LABS: ALBUMIN 3.1 g/dl (3.4-5.0); BILIRUBIN,TOTAL 0.7 mg/dL (0.2-1); CALCIUM 8.7 mg/dL (8.5-10.1); CREATININE 1.3 mg/dL (0.55-1.3); POTASSIUM 3.9 mmol/L (3.5-5.1); TOT PROT 6.3 g/dl (6.4-8.2)
[2020-04-16] MEDS ORDERED: COLLOIDAL OATMEAL 1 BAR EACH TP ONE (13:23)
[2020-04-16] MEDS ORDERED: MASKS NR ONE ×2 (16:48→21:10)
[2020-04-16] MEDS ORDERED: diphenhydrAMINE HCL 25 MG CAPSULE (FP) PO ONE (21:49)
[2020-04-16] MEDS: diphenhydrAMINE HCL 50 MG CAPSULE PO SCH (22:38)
[2020-04-16] MEDS: THIAMINE HCL 100 MG TABLET (FP) PO SCH (22:38)
[2020-04-16] MEDS: ATORVASTATIN CA 20 MG TABLET (FP) PO SCH (22:38)
[2020-04-16] MEDS: FLUOCINONIDE 0.05% CREAM (15 GM TUBE) TP SCH (22:38)
[2020-04-16] MEDS: CLOTRIMAZOLE 1% CREAM 15 GM TUBE TP SCH (22:39)
[2020-04-16] MEDS: MELATONIN 5 MG TABLETS PO SCH (23:17)
[2020-04-17] MEDS: chlordiazePOXIDE HCL 25 MG CAPSULE PO SCH ×4 (06:25→22:39)
[2020-04-17] MEDS: GABAPENTIN 400 MG CAPSULE PO SCH ×3 (06:25→22:39)
[2020-04-17] MEDS: INSULIN SLIDING SCALE (NOVOLOG) 1 VIAL SQ SCH ×3 (08:09→16:54)
[2020-04-17] MEDS: ASPIRIN 81 MG CHEWABLE TABLETS PO SCH (10:49)
[2020-04-17] MEDS: ENALAPRIL MALEATE 2.5 MG TABLET (FP) PO SCH (10:50)
[2020-04-17] MEDS: NICOTINE 14 MG/24 HOURS TOPICAL PATCH TD SCH (10:50)
[2020-04-17] MEDS: PRENATAL VITAMINS W/ FOLIC ACID TABLET (FP) PO SCH (10:50)
[2020-04-17] MEDS: NICOTINE POLACRILEX 2 MG GUM BUC PRN (10:51)
[2020-04-17] MEDS: FLUOCINONIDE 0.05% CREAM (15 GM TUBE) TP SCH ×2 (10:51→22:43)
[2020-04-17] MEDS: CLOTRIMAZOLE 1% CREAM 15 GM TUBE TP SCH ×2 (10:51→22:44)
[2020-04-17] MEDS: BISMUTH SUBSALICYLATE 524 MG/30 ML UD PO PRN (10:51)
[2020-04-17] MEDS: INSULIN (LEVEMIR) 100 UNITS/ML UNITS SQ SCH ×2 (10:58→22:44)
--- NOTE | 2020-04-17 11:22 | PN ---
S CIWA - CIWA Score Nausea/Vomitin-Mild Nausea/No Vomiting Muscle Tremors: 2 Anxiety: 2 Agitation: 2 Paroxysmal Sweats: No Perspiration Orientation: 0-Oriented Tacttile Disturbances: 0-None Auditory Disturbances: 0-None Visual Disturbances: 0-None Headache: 2-Mild CIWA-Ar Total Score: 9 BHS Progress Note (SOAP) Subjective: alert,irritable,anxious,interrupted sleep,tremor,aching pain body back Objective: 04/17/20 11:20 Vital Signs Temperature 96.5 F L 04/17/20 05:41 Pulse Rate 79 04/17/20 05:41 Respiratory Rate 20 04/17/20 05:41 Blood Pressure 141/83 04/17/20 05:41 O2 Sat by Pulse Oximetry (%) 95 04/17/20 05:41 Laboratory Last Values WBC 5.1 K/mm3 (4.0-10.0) 04/16/20 08:10 RBC 4.57 M/mm3 (4.00-5.60) 04/16/20 08:10 Hgb 14.9 GM/dL (11.7-16.9) 04/16/20 08:10 Hct 44.0 % (35.4-49) 04/16/20 08:10 MCV 96.2 fl (80-96) H 04/16/20 08:10 MCH 32.5 pg (25.7-33.7) 04/16/20 08:10 MCHC 33.8 g/dl (32.0-35.9) 04/16/20 08:10 RDW 13.2 % (11.9-15.9) 04/16/20 08:10 Plt Count 216 K/MM3 (134-434) 04/16/20 08:10 MPV 9.3 fl (7.5-11.1) 04/16/20 08:10 Sodium 141 mmol/L (136-145) 04/16/20 08:10 Potassium 3.9 mmol/L (3.5-5.1) 04/16/20 08:10 Chloride 106 mmol/L (98-107) 04/16/20 08:10 Carbon Dioxide 29 mmol/L (21-32) 04/16/20 08:10 Anion Gap 6 MMOL/L (8-16) L 04/16/20 08:10 BUN 13.0 mg/dL (7-18) 04/16/20 08:10 Creatinine 1.3 mg/dL (0.55-1.3) 04/16/20 08:10 Est GFR (CKD-EPI)AfAm 70.69 04/16/20 08:10 Est GFR (CKD-EPI)NonAf 60.99 04/16/20 08:10 POC Glucometer 211 UNITS (80-120) 04/17/20 10:54 Random Glucose 239 mg/dL (74-106) H 04/16/20 08:10 Calcium 8.7 mg/dL (8.5-10.1) 04/16/20 08:10 Total Bilirubin 0.7 mg/dL (0.2-1) 04/16/20 08:10 AST 16 U/L (15-37) 04/16/20 08:10 ALT 22 U/L (13-61) 04/16/20 08:10 Alkaline Phosphatase 60 U/L (45-117) 04/16/20 08:10 Total Protein 6.3 g/dl (6.4-8.2) L 04/16/20 08:10 Albumin 3.1 g/dl (3.4-5.0) L 04/16/20 08:10 Syphilis Serology Non-reactive (NONREACTIVE) 04/16/20 08:10 COVID-19 (LIUDMILA) Not detected (Not Detected) 04/15/20 21:20 Assessment: 04/17/20 11:20 withdrawal symptom Plan: continue detox librium regimen,bgm monitoring with insulin coverage and sliding scale
[2020-04-17] MEDS ORDERED: LEUPROLIDE ACETATE 7.5 MG KIT IM ONE (12:00)
[2020-04-17] MEDS ORDERED: diphenhydrAMINE HCL 25 MG CAPSULE (FP) PO ONE (21:31)
[2020-04-17] MEDS: MELATONIN 5 MG TABLETS PO SCH (22:39)
[2020-04-17] MEDS: THIAMINE HCL 100 MG TABLET (FP) PO SCH (22:39)
[2020-04-17] MEDS: ATORVASTATIN CA 20 MG TABLET (FP) PO SCH (22:40)
[2020-04-17] MEDS: diphenhydrAMINE HCL 50 MG CAPSULE PO SCH (22:40)
[2020-04-18] MEDS ORDERED: chlordiazePOXIDE HCL 10 MG CAPSULE PO PRN
[2020-04-18] MEDS: GABAPENTIN 400 MG CAPSULE PO SCH ×3 (06:06→22:29)
[2020-04-18] MEDS: chlordiazePOXIDE HCL 10 MG CAPSULE PO SCH ×4 (06:06→22:29)
[2020-04-18] MEDS: INSULIN SLIDING SCALE (NOVOLOG) 1 VIAL SQ SCH ×3 (06:07→16:49)
[2020-04-18] MEDS: IBUPROFEN 400 MG TABLET (FP) PO PRN ×2 (06:08→23:32)
[2020-04-18] MEDS: ASPIRIN 81 MG CHEWABLE TABLETS PO SCH (10:18)
[2020-04-18] MEDS: NICOTINE 14 MG/24 HOURS TOPICAL PATCH TD SCH (10:19)
[2020-04-18] MEDS: ENALAPRIL MALEATE 2.5 MG TABLET (FP) PO SCH (10:19)
[2020-04-18] MEDS: PRENATAL VITAMINS W/ FOLIC ACID TABLET (FP) PO SCH (10:19)
[2020-04-18] MEDS: FLUOCINONIDE 0.05% CREAM (15 GM TUBE) TP SCH ×2 (10:19→22:35)
[2020-04-18] MEDS: CLOTRIMAZOLE 1% CREAM 15 GM TUBE TP SCH ×2 (10:19→22:35)
[2020-04-18] MEDS: NICOTINE POLACRILEX 2 MG GUM BUC PRN (10:20)
--- NOTE | 2020-04-18 11:07 | PN ---
[facility] CIWA - CIWA Score Nausea/Vomitin-No Nausea/No Vomiting Muscle Tremors: 2 Anxiety: 2 Agitation: 2 Paroxysmal Sweats: 2 Orientation: 0-Oriented Tacttile Disturbances: 0-None Auditory Disturbances: 0-None Visual Disturbances: 1-Very Mild Sensitivity Headache: 0-None Present CIWA-Ar Total Score: 9 BHS Progress Note (SOAP) Subjective: Complaints of tremors, anxiety, agitation, sweats and auditory disturbances. Objective: 04/18/20 11:05 Vital Signs 04/18/20 04/18/20 04/18/20 05:37 08:50 09:22 Temperature 97.1 F L 97.8 F Pulse Rate 79 92 H Respiratory 16 17 Rate Blood Pressure 147/92 125/75 O2 Sat by Pulse 98 98 97 Oximetry (%) Laboratory Last Values WBC 5.1 K/mm3 (4.0-10.0) 04/16/20 08:10 RBC 4.57 M/mm3 (4.00-5.60) 04/16/20 08:10 Hgb 14.9 GM/dL (11.7-16.9) 04/16/20 08:10 Hct 44.0 % (35.4-49) 04/16/20 08:10 MCV 96.2 fl (80-96) H 04/16/20 08:10 MCH 32.5 pg (25.7-33.7) 04/16/20 08:10 MCHC 33.8 g/dl (32.0-35.9) 04/16/20 08:10 RDW 13.2 % (11.9-15.9) 04/16/20 08:10 Plt Count 216 K/MM3 (134-434) 04/16/20 08:10 MPV 9.3 fl (7.5-11.1) 04/16/20 08:10 Sodium 141 mmol/L (136-145) 04/16/20 08:10 Potassium 3.9 mmol/L (3.5-5.1) 04/16/20 08:10 Chloride 106 mmol/L (98-107) 04/16/20 08:10 Carbon Dioxide 29 mmol/L (21-32) 04/16/20 08:10 Anion Gap 6 MMOL/L (8-16) L 04/16/20 08:10 BUN 13.0 mg/dL (7-18) 04/16/20 08:10 Creatinine 1.3 mg/dL (0.55-1.3) 04/16/20 08:10 Est GFR (CKD-EPI)AfAm 70.69 04/16/20 08:10 Est GFR (CKD-EPI)NonAf 60.99 04/16/20 08:10 POC Glucometer 213 UNITS (80-120) 04/18/20 06:05 Random Glucose 239 mg/dL (74-106) H 04/16/20 08:10 Calcium 8.7 mg/dL (8.5-10.1) 04/16/20 08:10 Total Bilirubin 0.7 mg/dL (0.2-1) 04/16/20 08:10 AST 16 U/L (15-37) 04/16/20 08:10 ALT 22 U/L (13-61) 04/16/20 08:10 Alkaline Phosphatase 60 U/L (45-117) 04/16/20 08:10 Total Protein 6.3 g/dl (6.4-8.2) L 04/16/20 08:10 Albumin 3.1 g/dl (3.4-5.0) L 04/16/20 08:10 Syphilis Serology Non-reactive (NONREACTIVE) 04/16/20 08:10 COVID-19 (LIUDMILA) Not detected (Not Detected) 04/15/20 21:20 Labs noted. Assessment: 04/18/20 11:06 Alert and oriented x 3, in no acute respiratory distress. Decreased ROM, ambulating in unit with cane. Skin warm to touch without any lesions. Withdrawal symptoms. Plan: Continue detox protocol.
[2020-04-18] MEDS: INSULIN (LEVEMIR) 100 UNITS/ML UNITS SQ SCH ×2 (11:57→22:29)
[2020-04-18] MEDS ORDERED: INSULIN SLIDING SCALE (NOVOLOG) 1 VIAL SQ ONE (16:48)
[2020-04-18] MEDS ORDERED: diphenhydrAMINE HCL 25 MG CAPSULE (FP) PO ONE (21:26)
[2020-04-18] MEDS: diphenhydrAMINE HCL 50 MG CAPSULE PO SCH (22:29)
[2020-04-18] MEDS: ATORVASTATIN CA 20 MG TABLET (FP) PO SCH (22:29)
[2020-04-18] MEDS: MELATONIN 5 MG TABLETS PO SCH (22:30)
[2020-04-18] MEDS: THIAMINE HCL 100 MG TABLET (FP) PO SCH (22:30)
[2020-04-19] MEDS: chlordiazePOXIDE HCL 10 MG CAPSULE PO SCH ×2 (05:53→17:39)
[2020-04-19] MEDS: GABAPENTIN 400 MG CAPSULE PO SCH ×3 (05:54→23:22)
[2020-04-19] MEDS: IBUPROFEN 400 MG TABLET (FP) PO PRN (06:05)
[2020-04-19] MEDS: INSULIN SLIDING SCALE (NOVOLOG) 1 VIAL SQ SCH ×3 (06:23→16:54)
--- NOTE | 2020-04-19 10:26 | PN ---
[facility] CIWA - CIWA Score Nausea/Vomitin-No Nausea/No Vomiting Muscle Tremors: 1-None Visible, but [place] Anxiety: 2 Agitation: 1-Slight > Activity Paroxysmal Sweats: 2 Orientation: 0-Oriented Tacttile Disturbances: 0-None Auditory Disturbances: 0-None Visual Disturbances: 0-None Headache: 0-None Present CIWA-Ar Total Score: 6 BHS Progress Note (SOAP) Subjective: Complaints of tremors, sweats, anxiety and chronic right knee pain. Objective: 04/19/20 10:25 Vital Signs 04/19/20 04/19/20 04/19/20 05:17 07:15 08:50 Temperature 97.1 F L 97.5 F L Pulse Rate 81 107 H 90 Respiratory 16 17 Rate Blood Pressure 147/94 110/63 117/62 O2 Sat by Pulse 97 Oximetry (%) Laboratory Last Values WBC 5.1 K/mm3 (4.0-10.0) 04/16/20 08:10 RBC 4.57 M/mm3 (4.00-5.60) 04/16/20 08:10 Hgb 14.9 GM/dL (11.7-16.9) 04/16/20 08:10 Hct 44.0 % (35.4-49) 04/16/20 08:10 MCV 96.2 fl (80-96) H 04/16/20 08:10 MCH 32.5 pg (25.7-33.7) 04/16/20 08:10 MCHC 33.8 g/dl (32.0-35.9) 04/16/20 08:10 RDW 13.2 % (11.9-15.9) 04/16/20 08:10 Plt Count 216 K/MM3 (134-434) 04/16/20 08:10 MPV 9.3 fl (7.5-11.1) 04/16/20 08:10 Sodium 141 mmol/L (136-145) 04/16/20 08:10 Potassium 3.9 mmol/L (3.5-5.1) 04/16/20 08:10 Chloride 106 mmol/L (98-107) 04/16/20 08:10 Carbon Dioxide 29 mmol/L (21-32) 04/16/20 08:10 Anion Gap 6 MMOL/L (8-16) L 04/16/20 08:10 BUN 13.0 mg/dL (7-18) 04/16/20 08:10 Creatinine 1.3 mg/dL (0.55-1.3) 04/16/20 08:10 Est GFR (CKD-EPI)AfAm 70.69 04/16/20 08:10 Est GFR (CKD-EPI)NonAf 60.99 04/16/20 08:10 POC Glucometer 385 UNITS (80-120) 04/19/20 05:51 Random Glucose 239 mg/dL (74-106) H 04/16/20 08:10 Calcium 8.7 mg/dL (8.5-10.1) 04/16/20 08:10 Total Bilirubin 0.7 mg/dL (0.2-1) 04/16/20 08:10 AST 16 U/L (15-37) 04/16/20 08:10 ALT 22 U/L (13-61) 04/16/20 08:10 Alkaline Phosphatase 60 U/L (45-117) 04/16/20 08:10 Total Protein 6.3 g/dl (6.4-8.2) L 04/16/20 08:10 Albumin 3.1 g/dl (3.4-5.0) L 04/16/20 08:10 Syphilis Serology Non-reactive (NONREACTIVE) 04/16/20 08:10 COVID-19 (LIUDMILA) Not detected (Not Detected) 04/15/20 21:20 Labs noted. Assessment: 04/19/20 10:25 Alert and oriented x 3, in no acute respiratory distress. Full ROM, ambulatory in unit with cane. Skin warm to touch without any lesions. Withdrawal symptoms. For D/c in AM Plan: Continue detox protocol. D/C in AM.
[2020-04-19] MEDS: PRENATAL VITAMINS W/ FOLIC ACID TABLET (FP) PO SCH (10:29)
[2020-04-19] MEDS: INSULIN (LEVEMIR) 100 UNITS/ML UNITS SQ SCH ×2 (10:29→23:27)
[2020-04-19] MEDS: ASPIRIN 81 MG CHEWABLE TABLETS PO SCH (10:29)
[2020-04-19] MEDS: NICOTINE 14 MG/24 HOURS TOPICAL PATCH TD SCH (10:30)
[2020-04-19] MEDS: FLUOCINONIDE 0.05% CREAM (15 GM TUBE) TP SCH ×2 (10:30→23:29)
[2020-04-19] MEDS: CLOTRIMAZOLE 1% CREAM 15 GM TUBE TP SCH ×2 (10:31→23:24)
[2020-04-19] MEDS: ENALAPRIL MALEATE 2.5 MG TABLET (FP) PO SCH (10:31)
[2020-04-19] MEDS ORDERED: INSULIN SLIDING SCALE (NOVOLOG) 1 VIAL SQ ONE (12:33)
[2020-04-19] MEDS: ACETAMINOPHEN 325 MG TABLET (FP) PO PRN (14:09)
[2020-04-19] MEDS ORDERED: diphenhydrAMINE HCL 25 MG CAPSULE (FP) PO ONE (20:29)
[2020-04-19] MEDS: ATORVASTATIN CA 20 MG TABLET (FP) PO SCH (23:22)
[2020-04-19] MEDS: diphenhydrAMINE HCL 50 MG CAPSULE PO SCH (23:23)
[2020-04-19] MEDS: MELATONIN 5 MG TABLETS PO SCH (23:29)
[2020-04-19] MEDS: THIAMINE HCL 100 MG TABLET (FP) PO SCH (23:30)
[2020-04-20] MEDS ORDERED: chlordiazePOXIDE HCL 10 MG CAPSULE PO ONE (05:00)
[2020-04-20] MEDS: GABAPENTIN 400 MG CAPSULE PO SCH ×2 (06:17→13:38)
[2020-04-20] MEDS: ACETAMINOPHEN 325 MG TABLET (FP) PO PRN (06:18)
--- NOTE | 2020-04-20 09:54 | PN ---
[facility] CIWA - CIWA Score Nausea/Vomitin-No Nausea/No Vomiting Muscle Tremors: None Anxiety: 1-Mildly Anxious Agitation: 0-Normal Activity Paroxysmal Sweats: No Perspiration Orientation: 0-Oriented Tacttile Disturbances: 0-None Auditory Disturbances: 0-None Visual Disturbances: 0-None Headache: 0-None Present CIWA-Ar Total Score: 1 S Progress Note (SOAP) Subjective: alert,no complaint Objective: 04/20/20 09:54 Vital Signs Temperature 98.2 F 04/20/20 05:10 Pulse Rate 84 04/20/20 05:10 Respiratory Rate 18 04/20/20 05:10 Blood Pressure 140/86 04/20/20 05:10 O2 Sat by Pulse Oximetry (%) 96 04/20/20 05:10 04/20/20 09:54 bgm 217 Assessment: 04/20/20 09:55 detox completed,no withdrawal symptom Plan: stable for discharge today to go to rehab
--- NOTE | 2020-04-20 09:58 | DS ---
[facility] Detox Discharge Summary Admission Date: 04/15/20 Discharge Date: 04/20/20 - History Present History: Alcohol Dependence, Cocaine Dependence Additional Comments: alert,oriented x 3 ambulation on the unit with cane lung clear on auscultation bilaterally abdomen soft,no distension,no pain no edema of the leg detox complete,no withdrawal symptom follow up with after care program [facility] as arrangement total time spending on discharge 35 minutes Pertinent Past History: hypertension iddm diabetic neuropathy hyperlipidemia vision loss history of cancer of prostate low back pain major depressive disorder insomnia ambulation with cane - Physical Exam Results Vital Signs: Vital Signs Temperature 98.2 F 04/20/20 05:10 Pulse Rate 84 04/20/20 05:10 Respiratory Rate 18 04/20/20 05:10 Blood Pressure 140/86 04/20/20 05:10 O2 Sat by Pulse Oximetry (%) 96 04/20/20 05:10 Pertinent Admission Physical Exam Findings: withdrawal signs and symptom Laboratory Last Values WBC 5.1 K/mm3 (4.0-10.0) 04/16/20 08:10 RBC 4.57 M/mm3 (4.00-5.60) 04/16/20 08:10 Hgb 14.9 GM/dL (11.7-16.9) 04/16/20 08:10 Hct 44.0 % (35.4-49) 04/16/20 08:10 MCV 96.2 fl (80-96) H 04/16/20 08:10 MCH 32.5 pg (25.7-33.7) 04/16/20 08:10 MCHC 33.8 g/dl (32.0-35.9) 04/16/20 08:10 RDW 13.2 % (11.9-15.9) 04/16/20 08:10 Plt Count 216 K/MM3 (134-434) 04/16/20 08:10 MPV 9.3 fl (7.5-11.1) 04/16/20 08:10 Sodium 141 mmol/L (136-145) 04/16/20 08:10 Potassium 3.9 mmol/L (3.5-5.1) 04/16/20 08:10 Chloride 106 mmol/L (98-107) 04/16/20 08:10 Carbon Dioxide 29 mmol/L (21-32) 04/16/20 08:10 Anion Gap 6 MMOL/L (8-16) L 04/16/20 08:10 BUN 13.0 mg/dL (7-18) 04/16/20 08:10 Creatinine 1.3 mg/dL (0.55-1.3) 04/16/20 08:10 Est GFR (CKD-EPI)AfAm 70.69 04/16/20 08:10 Est GFR (CKD-EPI)NonAf 60.99 04/16/20 08:10 POC Glucometer 217 UNITS (80-120) 04/20/20 06:16 Random Glucose 239 mg/dL (74-106) H 04/16/20 08:10 Calcium 8.7 mg/dL (8.5-10.1) 04/16/20 08:10 Total Bilirubin 0.7 mg/dL (0.2-1) 04/16/20 08:10 AST 16 U/L (15-37) 04/16/20 08:10 ALT 22 U/L (13-61) 04/16/20 08:10 Alkaline Phosphatase 60 U/L (45-117) 04/16/20 08:10 Total Protein 6.3 g/dl (6.4-8.2) L 04/16/20 08:10 Albumin 3.1 g/dl (3.4-5.0) L 04/16/20 08:10 Syphilis Serology Non-reactive (NONREACTIVE) 04/16/20 08:10 COVID-19 (LIUDMILA) Not detected (Not Detected) 04/15/20 21:20 Vital Signs Temperature 98.2 F 04/20/20 05:10 Pulse Rate 84 04/20/20 05:10 Respiratory Rate 18 04/20/20 05:10 Blood Pressure 140/86 04/20/20 05:10 O2 Sat by Pulse Oximetry (%) 96 04/20/20 05:10 - Treatment Hospital Course: Detox Protocol Followed, Detoxed Safely, Responded well, Discharged Condition Good, Rehab Referral Accepted Patient has Accepted a Rehab Referral to: [facility] - Medication Discharge Medications: Ambulatory Orders Sertraline HCl [Zoloft -] 50 mg PO DAILY 03/21/19 Clotrimazole [Jock Itch Relief] 15 gm TP BID #1 cream..g. 04/08/19 Diphenhydramine [Benadryl Capsule -] 25 mg PO HS PRN #30 capsule 06/06/19 Ergocalciferol [Vitamin D2] 50,000 unit PO WEEKLY #4 capsule 06/06/19 Fluocinonide 0.05% Cream [Lidex 0.05% Cream -] 1 applic TP BID #1 tube 06/06/19 Ibuprofen [Motrin -] 600 mg PO PRN PRN #30 tablet 06/06/19 Leuprolide Acetate [Lupron Depot 7.5MG -] 7.5 mg IM MONTHLY #1 kit 06/06/19 Multivitamins [Multivit ([facility] Formulary)] 1 tab PO DAILY #30 tab 06/06/19 Aspirin [ASA -] 81 mg PO DAILY #14 tab.chew 10/08/19 Atorvastatin Ca [Lipitor] 20 mg PO HS #14 tablet 10/08/19 Calcium Carbonate/Vitamin D3 [Calcium 500-Vit D3 200 Caplet] 1 each PO BID #30 tablet 10/08/19 Enalapril Maleate [Vasotec -] 2.5 mg PO DAILY #14 tablet 10/08/19 Gabapentin [Neurontin -] 800 mg PO TID #45 capsule 10/08/19 Diclofenac Sodium [Voltaren] 100 gm TP PRN 03/14/20 Insulin Glargine,Hum.rec.anlog [Basaglar Kwikpen U-100] 40 unit SQ BID 03/14/20 Insulin Lispro [Admelog Solostar] 35 unit SQ TID 03/14/20 Lidocaine HCl [Aspercreme] 76.5 gm TP PRN 03/14/20 - AMA Did Patient Leave Against Medical Advice: No
[2020-04-20] MEDS: ASPIRIN 81 MG CHEWABLE TABLETS PO SCH (11:15)
[2020-04-20] MEDS: PRENATAL VITAMINS W/ FOLIC ACID TABLET (FP) PO SCH (11:16)
[2020-04-20] MEDS: ENALAPRIL MALEATE 2.5 MG TABLET (FP) PO SCH (11:16)
[2020-04-20] MEDS: INSULIN (LEVEMIR) 100 UNITS/ML UNITS SQ SCH (11:21)
[2020-04-20] MEDS: INSULIN SLIDING SCALE (NOVOLOG) 1 VIAL SQ SCH ×2 (11:21→17:15)
[2020-04-20] MEDS: FLUOCINONIDE 0.05% CREAM (15 GM TUBE) TP SCH (11:22)
[2020-04-20] MEDS: NICOTINE 14 MG/24 HOURS TOPICAL PATCH TD SCH (11:22)
[2020-04-20] MEDS: CLOTRIMAZOLE 1% CREAM 15 GM TUBE TP SCH (11:22)
[2020-04-20] MEDS: IBUPROFEN 400 MG TABLET (FP) PO PRN (13:39)
[2020-04-20] MEDS ORDERED: INSULIN SLIDING SCALE (NOVOLOG) 1 VIAL SQ ONE (17:08)
[2020-04-20 17:57] VITALS: BP 131/89; PULSE 95; TEMP 96.9
== END 2020-04-20 17:46 | disposition other institution (70) | DRG 774 ==
LOC: YASAS 17:38 → Y6N 21:04
PROVIDERS: ADMIT Allergy & Immunology; ATTEND Allergy & Immunology
PROC: HZ2ZZZZ Detoxification Services for Substance Abuse Treatment (ICD-10-PCS; principal; 2020-04-15)
DX: F10.230 Alcohol dependence with withdrawal, uncomplicated (principal); F14.20 Cocaine dependence, uncomplicated; F16.20 Hallucinogen dependence, uncomplicated; F17.210 Nicotine dependence, cigarettes, uncomplicated; F19.282 Other psychoactive substance dependence with psychoactive substance-induced sleep disorder; F32.9 Major depressive disorder, single episode, unspecified; G47.00 Insomnia, unspecified; E78.5 Hyperlipidemia, unspecified; H54.7 Unspecified visual loss; I10 Essential (primary) hypertension; E11.42 Type 2 diabetes mellitus with diabetic polyneuropathy; Z79.4 Long term (current) use of insulin; M54.5 Low back pain; G89.29 Other chronic pain; C61 Malignant neoplasm of prostate; R30.9 Painful micturition, unspecified; Z99.89 Dependence on other enabling machines and devices; Z88.0 Allergy status to penicillin; Z91.018 Allergy to other foods; Z91.5 Personal history of self-harm
CPT/HCPCS: 36415; 80053; 82962; 85027; 86780; U0003

== ENCOUNTER 2020-04-20 18:06 | Inpatient (IN) | payer OTHER ==
[2020-04-20] MEDS ORDERED: MAGNESIUM CITRATE 300 ML BOTTLE PO PRN (18:26)
[2020-04-20] MEDS ORDERED: IBUPROFEN 400 MG TABLET (FP) PO PRN (18:26)
[2020-04-20] MEDS ORDERED: P-EPHED 60MG/TRIPROLIDI 2.5MG TABLET PO PRN (18:26)
[2020-04-20] MEDS ORDERED: MAGNESIUM HYDROX 2400MG/30ML ORAL SUSPENSION 30 ML CUP PO PRN (18:26)
[2020-04-20] MEDS ORDERED: guaiFENesin 200 MG/10 ML 10 ML UNIT-DOSE CUPS PO PRN (18:26)
[2020-04-20] MEDS ORDERED: hydrOXYzine PAMOATE 25 MG CAPSULE (FP) PO PRN (18:26)
[2020-04-20] MEDS ORDERED: MENTHOL/PHENOL 1 EACH UD MM PRN (18:26)
[2020-04-20] MEDS ORDERED: COLLOIDAL OATMEAL 1 BAR EACH TP PRN (18:32)
--- NOTE | 2020-04-20 18:38 | HP ---
[facility] Rehab Assess/Revision - Admission History Admitted to Rehab [facility]: [facility] Date of Admission to Rehab: 04/20/2020 - Findings Detox History & Physical reviewed: Yes Concur with findings: Yes Inpatient Rehab Admission - Rehab Decision to Admit Inpatient rehab admission?: Yes - Initial Determination Are CD services needed?: Yes Free of communicable disease: Yes Not in need of hospitalization: Yes - Rehab Admission Criteria Previous failed treatment: Yes Poor recovery environment: Yes Comorbidities: Yes Lacks judgement: Yes Patient is meeting Inpatient Rehab admission criteria:: Yes
[2020-04-20 18:52] VITALS: BMI 29.0
[2020-04-20] MEDS ORDERED: IBUPROFEN 600 MG TABLET (FP) PO PRN (19:20)
[2020-04-20] MEDS ORDERED: PATIENT'S OWN MEDICATION (NON-FORMULARY) (Diclofenac Sodium [Voltaren] 100 GM) TP SCH (19:30)
[2020-04-20] MEDS ORDERED: INSULIN (NOVOLOG) ASPART 100 UNITS/ML 10ML VIAL ONE (21:54)
[2020-04-20] MEDS ORDERED: INSULIN SLIDING SCALE (NOVOLOG) 1 VIAL SQ SCH (22:00)
[2020-04-20] MEDS ORDERED: diphenhydrAMINE HCL 25 MG CAPSULE (FP) PO PRN (22:00)
[2020-04-20] MEDS: GABAPENTIN 400 MG CAPSULE PO SCH (22:12)
[2020-04-20] MEDS: THIAMINE HCL 100 MG TABLET (FP) PO SCH (22:12)
[2020-04-20] MEDS: ATORVASTATIN CA 20 MG TABLET (FP) PO SCH (22:12)
[2020-04-20] MEDS: CLOTRIMAZOLE 1% CREAM 15 GM TUBE TP SCH (22:13)
[2020-04-20] MEDS: FLUOCINONIDE 0.05% CREAM (15 GM TUBE) TP SCH (22:13)
[2020-04-20] MEDS: MELATONIN 5 MG TABLETS PO SCH (22:14)
[2020-04-20] MEDS: INSULIN SLIDING SCALE (NOVOLOG) 1 VIAL SQ SCH (22:16)
[2020-04-20] MEDS ORDERED: INSULIN (LEVEMIR) 100 UNITS/ML UNITS SQ ONE (22:18)
[2020-04-20] MEDS: INSULIN (LEVEMIR) 100 UNITS/ML UNITS SQ SCH (22:18)
[2020-04-21] MEDS: INSULIN (LEVEMIR) 100 UNITS/ML UNITS SQ SCH ×2 (06:53→21:46)
[2020-04-21] MEDS: INSULIN SLIDING SCALE (NOVOLOG) 1 VIAL SQ SCH ×4 (06:53→21:50)
[2020-04-21] MEDS: ACETAMINOPHEN 325 MG TABLET (FP) PO PRN ×2 (06:57→14:36)
[2020-04-21] MEDS: GABAPENTIN 400 MG CAPSULE PO SCH ×3 (06:58→21:44)
[2020-04-21] MEDS: ERGOCALCIFEROL (VIT D2) 50,000 UNIT (1.25 MG) CAPSULE PO SCH (09:22)
[2020-04-21] MEDS: PRENATAL VITAMINS W/ FOLIC ACID TABLET (FP) PO SCH (09:22)
[2020-04-21] MEDS: ASPIRIN 81 MG CHEWABLE TABLETS PO SCH (09:22)
[2020-04-21] MEDS: ENALAPRIL MALEATE 2.5 MG TABLET (FP) PO SCH (09:24)
[2020-04-21] MEDS: NICOTINE POLACRILEX 2 MG GUM BUC PRN (09:24)
[2020-04-21] MEDS: NICOTINE 14 MG/24 HOURS TOPICAL PATCH TD SCH (09:24)
[2020-04-21] MEDS: CLOTRIMAZOLE 1% CREAM 15 GM TUBE TP SCH ×2 (10:10→21:43)
[2020-04-21] MEDS: FLUOCINONIDE 0.05% CREAM (15 GM TUBE) TP SCH ×2 (10:11→21:48)
--- NOTE | 2020-04-21 11:36 | PN ---
[facility] Progress Note Note: Pt is a 55 y/o male admitted to rehab yesterday from [address] [place] [address]. Vital Signs - 24 hr 04/20/20 04/20/20 04/20/20 17:50 18:21 20:07 Temperature 98.7 F 98.7 F Pulse Rate 95 H 95 H Respiratory 18 18 Rate Blood Pressure 124/91 124/91 O2 Sat by Pulse 95 96 Oximetry (%) 04/21/20 04/21/20 05:50 08:55 Temperature 97.8 F Pulse Rate 92 H 95 H Respiratory 18 Rate Blood Pressure 125/85 114/70 O2 Sat by Pulse 97 Oximetry (%) Alert o x 3 nad oob ambulating with steady gait extremities:no LE edema, skin intact; dark discoloration of old scars-right inner knee. new Rehab pt Cont rehab increase po fluids. Bengay as directed to affected ankle.
[2020-04-21] MEDS ORDERED: INSULIN (NOVOLOG) ASPART 100 UNITS/ML 10ML VIAL ONE ×3 (12:04→22:05)
[2020-04-21] MEDS: METHYL SALICYLATE/MENTHOL OINT 30 GM TUBE TP SCH ×2 (12:34→21:45)
--- NOTE | 2020-04-21 14:42 | CONSULT ---
[facility] Psychiatric Consult - Data Date of interview: 04/21/20 Admission source: 6N Identifying data: Mr Stevens is a 55 years old Black male, father of 5 children, unemployed receiving food stamps, homeless admitted from detox on 04/20/20 for inpatient rehabilitation treatment for alcohol, cocaine and phencyclidine Substance Abuse History: Reports history of alcohol, cocaine and pcp use. Refer to addiction counselor's summary for further information Medical History: Significant for hypertension, dyslipidemia, type 2 diabetes mellitus, diabetic neuropathy, history of appendectomy in 1985 and treatment for prostate cancer. Smokes 15 cigarettes daily Psychiatric History: Patient is known for multiple previous admissions to this facility and he was recently seen by information writer om 04/16/20 while in detox. He reports that his first psychiatric contact was in 1999 at an outpatient clinic in the [place], [place] due to depression in the context of family losses( of his mother in 1995 and his brother in 1998). He said that he was diagnosed with MDD and stated on psychotropic medications. Reports that since, he has been receiving psychiatric treatment on & off but adherence to OPD care and m edications were suboptimal. Reports that his most recent OPD care was at a clinic in [place], [place] in February 2019. He said that he was prescribed Zoloft which he has been off since he stopped attending that clinic. Denies previous psychiatric hospitalization. Reports one previous suicide attempt via self mutilation of cutting himself while under the influence of sofi dust at the age of 21. At present, denies experiencing depressive symptoms, S/H ideations. However, reports sleeing poorly. Requests to continue Benadryl 50 mg/hs in addition to Melatinin 5 mg/hs prn which he was taking while in detox Physical/Sexual Abuse/Trauma History: Denies history of abuse as a child or DV relationship as an adult Additional Comment: Reports history of 5 previous arrests including 2 felony convictions. Denies being on parole/probation currently Mental Status Exam - Mental Status Exam Alert and Oriented to: Time, Place, Person Cognitive Function: Fair Patient Appearance: Well Groomed Mood: Hopeful, Euthymic Affect: Appropriate Patient Behavior: Cooperative Speech Pattern: Clear Voice Loudness: Normal Thought Process: Intact Hallucinations: Denies Suicidal Ideation: Denies Homicidal Ideation: Denies Insight/Judgement: Fair Sleep: Poorly Appetite: Good Muscle strength/Tone: Normal Gait/Station: Normal Psychiatric Findings - Problem List ([place] 1, 2,3) (1) Depressive disorder Current Visit: No Status: Chronic (2) MDD (major depressive disorder) Current Visit: No Status: Ruled-out (3) Substance-induced sleep disorder Current Visit: No Status: Acute (4) Alcohol dependence Current Visit: Yes Status: Acute (5) Cocaine dependence Current Visit: Yes Status: Acute (6) Phencyclidine abuse Current Visit: Yes Status: Acute (7) Nicotine dependence Current Visit: No Status: Chronic Qualifiers: Nicotine product type: cigarettes Substance use status: uncomplicated Qualified Code(s): F17.210 - Nicotine dependence, cigarettes, uncomplicated (8) Arthritis of right knee Current Visit: No Status: Chronic (9) Chronic low back pain Current Visit: No Status: Chronic Qualifiers: Back pain laterality: unspecified Sciatica presence: unspecified whether sciatica present Qualified Code(s): M54.5 - Low back pain; G89.29 - Other chronic pain (10) Diabetic neuropathy Current Visit: No Status: Chronic (11) Essential hypertension Current Visit: No Status: Chronic (12) HLD (hyperlipidemia) Current Visit: No Status: Chronic Qualifiers: Hyperlipidemia type: unspecified Qualified Code(s): E78.5 - Hyperlipidemia, unspecified (13) IDDM (insulin dependent diabetes mellitus) Current Visit: No Status: Chronic (14) Prostatic cancer Current Visit: No Status: Resolved (15) History of appendectomy Current Visit: No Status: Resolved - Initial Treatment Plan Initial Treatment Plan: 1) Continue Benadryl 50 mg po Hs and Melatonin 5 mg po HS prn for insomnia. 2) Continue inpatient rehabilitation
[2020-04-21] MEDS: ATORVASTATIN CA 20 MG TABLET (FP) PO SCH (21:44)
[2020-04-21] MEDS: diphenhydrAMINE HCL 50 MG CAPSULE PO PRN (21:44)
[2020-04-21] MEDS: THIAMINE HCL 100 MG TABLET (FP) PO SCH (21:44)
[2020-04-21] MEDS: MELATONIN 5 MG TABLETS PO SCH (21:45)
[2020-04-22] MEDS: GABAPENTIN 400 MG CAPSULE PO SCH ×3 (06:16→21:44)
[2020-04-22] MEDS ORDERED: INSULIN (NOVOLOG) ASPART 100 UNITS/ML 10ML VIAL ONE ×3 (06:18→22:02)
[2020-04-22] MEDS: ACETAMINOPHEN 325 MG TABLET (FP) PO PRN ×3 (06:23→21:43)
[2020-04-22] MEDS: MAG HYDROX/AL HYDROX/SIMETH 30 ML UNIT-DOSE CUP PO PRN (06:53)
[2020-04-22] MEDS: INSULIN SLIDING SCALE (NOVOLOG) 1 VIAL SQ SCH ×4 (06:56→21:47)
[2020-04-22] MEDS: INSULIN (LEVEMIR) 100 UNITS/ML UNITS SQ SCH ×2 (06:56→21:47)
[2020-04-22] MEDS: PRENATAL VITAMINS W/ FOLIC ACID TABLET (FP) PO SCH (10:49)
[2020-04-22] MEDS: ASPIRIN 81 MG CHEWABLE TABLETS PO SCH (10:49)
[2020-04-22] MEDS: NICOTINE 14 MG/24 HOURS TOPICAL PATCH TD SCH (10:50)
[2020-04-22] MEDS: FLUOCINONIDE 0.05% CREAM (15 GM TUBE) TP SCH ×2 (10:51→21:45)
[2020-04-22] MEDS: METHYL SALICYLATE/MENTHOL OINT 30 GM TUBE TP SCH ×2 (10:52→21:45)
[2020-04-22] MEDS: CLOTRIMAZOLE 1% CREAM 15 GM TUBE TP SCH ×2 (10:52→21:47)
[2020-04-22] MEDS: ENALAPRIL MALEATE 2.5 MG TABLET (FP) PO SCH (10:52)
--- NOTE | 2020-04-22 13:27 | PN ---
AND[facility] Progress Note Note: Pt reports he was on blood pressure medications which caused him leg swellings and was changed. Pt is unable to give names of his past or current BP medications. This provider called pt's home pharmacy, [facility] and pharmacist verified that pt is not on Vasotec. Rports pt is currently on Nifedipine 30 mg po daily with last pickle water pump operator on 03/06/20 with 8 Refills waiting for patient(prescriber Dr. Reynoso). Also reported pt was on Furosemide 40 mg po daily #30 on 03/27/20 with no refills. Pt reports he has [facility] with [facility], with Mora Escalante. Vital Signs - 24 hr 04/21/20 04/22/20 04/22/20 21:31 06:12 10:50 Temperature 98.7 F Pulse Rate 92 H 99 H Respiratory 18 Rate Blood Pressure 144/92 137/65 O2 Sat by Pulse 98 97 Oximetry (%) Alert o x 3 nad oob ambulating with steady gait with cane. Extremities:no edema, skin intact. A:Hx HTN d/c Vasotec Restart Nifedipine Er 30 mg po daily
[2020-04-22] MEDS: LOPERAMIDE HCL 2 MG CAPSULE PO PRN ×2 (15:14→23:21)
[2020-04-22] MEDS: THIAMINE HCL 100 MG TABLET (FP) PO SCH (21:44)
[2020-04-22] MEDS: diphenhydrAMINE HCL 50 MG CAPSULE PO PRN (21:44)
[2020-04-22] MEDS: ATORVASTATIN CA 20 MG TABLET (FP) PO SCH (21:45)
[2020-04-22] MEDS: MELATONIN 5 MG TABLETS PO SCH (21:46)
[2020-04-23] MEDS: ACETAMINOPHEN 325 MG TABLET (FP) PO PRN ×4 (06:38→22:15)
[2020-04-23] MEDS: GABAPENTIN 400 MG CAPSULE PO SCH ×3 (06:38→22:08)
[2020-04-23] MEDS: LOPERAMIDE HCL 2 MG CAPSULE PO PRN ×2 (06:45→14:27)
[2020-04-23] MEDS ORDERED: INSULIN (NOVOLOG) ASPART 100 UNITS/ML 10ML VIAL ONE ×4 (07:29→22:04)
[2020-04-23] MEDS: INSULIN (LEVEMIR) 100 UNITS/ML UNITS SQ SCH ×2 (08:03→22:12)
[2020-04-23] MEDS: INSULIN SLIDING SCALE (NOVOLOG) 1 VIAL SQ SCH ×4 (08:04→22:09)
[2020-04-23] MEDS: PRENATAL VITAMINS W/ FOLIC ACID TABLET (FP) PO SCH (10:35)
[2020-04-23] MEDS: NIFEdipine E.R. 30 MG TABLET PO SCH (10:36)
[2020-04-23] MEDS: NICOTINE 14 MG/24 HOURS TOPICAL PATCH TD SCH (10:36)
[2020-04-23] MEDS: ASPIRIN 81 MG CHEWABLE TABLETS PO SCH (10:36)
[2020-04-23] MEDS: FLUOCINONIDE 0.05% CREAM (15 GM TUBE) TP SCH ×2 (10:37→22:08)
[2020-04-23] MEDS: METHYL SALICYLATE/MENTHOL OINT 30 GM TUBE TP SCH ×2 (10:37→22:17)
[2020-04-23] MEDS: CLOTRIMAZOLE 1% CREAM 15 GM TUBE TP SCH ×2 (10:38→22:08)
[2020-04-23] MEDS: NICOTINE POLACRILEX 2 MG GUM BUC PRN (10:41)
[2020-04-23] MEDS: MAG HYDROX/AL HYDROX/SIMETH 30 ML UNIT-DOSE CUP PO PRN (18:08)
[2020-04-23] MEDS: diphenhydrAMINE HCL 50 MG CAPSULE PO PRN (22:07)
[2020-04-23] MEDS: MELATONIN 5 MG TABLETS PO SCH (22:08)
[2020-04-23] MEDS: ATORVASTATIN CA 20 MG TABLET (FP) PO SCH (22:08)
[2020-04-23] MEDS: THIAMINE HCL 100 MG TABLET (FP) PO SCH (22:09)
[2020-04-24] MEDS: ACETAMINOPHEN 325 MG TABLET (FP) PO PRN ×4 (06:18→21:29)
[2020-04-24] MEDS: GABAPENTIN 400 MG CAPSULE PO SCH ×3 (06:18→21:28)
[2020-04-24] MEDS: INSULIN (LEVEMIR) 100 UNITS/ML UNITS SQ SCH ×2 (06:20→21:25)
[2020-04-24] MEDS ORDERED: INSULIN (NOVOLOG) ASPART 100 UNITS/ML 10ML VIAL ONE ×2 (06:55→11:59)
[2020-04-24] MEDS: INSULIN SLIDING SCALE (NOVOLOG) 1 VIAL SQ SCH ×4 (07:53→21:26)
[2020-04-24] MEDS: NICOTINE 14 MG/24 HOURS TOPICAL PATCH TD SCH (10:36)
[2020-04-24] MEDS: ASPIRIN 81 MG CHEWABLE TABLETS PO SCH (10:36)
[2020-04-24] MEDS: PRENATAL VITAMINS W/ FOLIC ACID TABLET (FP) PO SCH (10:36)
[2020-04-24] MEDS: FLUOCINONIDE 0.05% CREAM (15 GM TUBE) TP SCH ×2 (10:37→21:51)
[2020-04-24] MEDS: METHYL SALICYLATE/MENTHOL OINT 30 GM TUBE TP SCH ×2 (10:37→21:51)
[2020-04-24] MEDS: NIFEdipine E.R. 30 MG TABLET PO SCH (10:38)
[2020-04-24] MEDS: CLOTRIMAZOLE 1% CREAM 15 GM TUBE TP SCH ×2 (10:38→21:51)
[2020-04-24] MEDS: LOPERAMIDE HCL 2 MG CAPSULE PO PRN ×2 (10:40→17:03)
[2020-04-24] MEDS: ATORVASTATIN CA 20 MG TABLET (FP) PO SCH (21:27)
[2020-04-24] MEDS: THIAMINE HCL 100 MG TABLET (FP) PO SCH (21:27)
[2020-04-24] MEDS: MELATONIN 5 MG TABLETS PO SCH (21:51)
[2020-04-25] MEDS ORDERED: INSULIN (NOVOLOG) ASPART 100 UNITS/ML 10ML VIAL ONE ×3 (06:45→21:53)
[2020-04-25] MEDS: MAG HYDROX/AL HYDROX/SIMETH 30 ML UNIT-DOSE CUP PO PRN (06:49)
[2020-04-25] MEDS: GABAPENTIN 400 MG CAPSULE PO SCH ×3 (06:49→21:45)
[2020-04-25] MEDS: INSULIN SLIDING SCALE (NOVOLOG) 1 VIAL SQ SCH ×4 (06:49→21:47)
[2020-04-25] MEDS: INSULIN (LEVEMIR) 100 UNITS/ML UNITS SQ SCH ×2 (06:50→21:47)
[2020-04-25] MEDS: ACETAMINOPHEN 325 MG TABLET (FP) PO PRN ×3 (06:51→16:36)
[2020-04-25] MEDS: PRENATAL VITAMINS W/ FOLIC ACID TABLET (FP) PO SCH (10:28)
[2020-04-25] MEDS: ASPIRIN 81 MG CHEWABLE TABLETS PO SCH (10:28)
[2020-04-25] MEDS: NICOTINE 14 MG/24 HOURS TOPICAL PATCH TD SCH (10:28)
[2020-04-25] MEDS: METHYL SALICYLATE/MENTHOL OINT 30 GM TUBE TP SCH ×2 (10:29→21:45)
[2020-04-25] MEDS: NIFEdipine E.R. 30 MG TABLET PO SCH (10:30)
[2020-04-25] MEDS: FLUOCINONIDE 0.05% CREAM (15 GM TUBE) TP SCH ×2 (10:32→21:47)
[2020-04-25] MEDS: CLOTRIMAZOLE 1% CREAM 15 GM TUBE TP SCH ×2 (10:32→21:46)
[2020-04-25] MEDS: LOPERAMIDE HCL 2 MG CAPSULE PO PRN (16:03)
[2020-04-25] MEDS: diphenhydrAMINE HCL 50 MG CAPSULE PO PRN (21:45)
[2020-04-25] MEDS: ATORVASTATIN CA 20 MG TABLET (FP) PO SCH (21:45)
[2020-04-25] MEDS: THIAMINE HCL 100 MG TABLET (FP) PO SCH (21:46)
[2020-04-25] MEDS: MELATONIN 5 MG TABLETS PO SCH (21:46)
[2020-04-26] MEDS: GABAPENTIN 400 MG CAPSULE PO SCH ×3 (06:28→21:53)
[2020-04-26] MEDS: ACETAMINOPHEN 325 MG TABLET (FP) PO PRN ×4 (06:28→21:52)
[2020-04-26] MEDS: INSULIN (LEVEMIR) 100 UNITS/ML UNITS SQ SCH ×2 (06:34→21:56)
[2020-04-26] MEDS: INSULIN SLIDING SCALE (NOVOLOG) 1 VIAL SQ SCH ×4 (06:34→21:56)
[2020-04-26] MEDS ORDERED: INSULIN (NOVOLOG) ASPART 100 UNITS/ML 10ML VIAL ONE ×4 (07:23→22:02)
[2020-04-26] MEDS: ASPIRIN 81 MG CHEWABLE TABLETS PO SCH (10:44)
[2020-04-26] MEDS: PRENATAL VITAMINS W/ FOLIC ACID TABLET (FP) PO SCH (10:44)
[2020-04-26] MEDS: NIFEdipine E.R. 30 MG TABLET PO SCH (10:45)
[2020-04-26] MEDS: NICOTINE 14 MG/24 HOURS TOPICAL PATCH TD SCH (10:46)
[2020-04-26] MEDS: CLOTRIMAZOLE 1% CREAM 15 GM TUBE TP SCH ×2 (10:46→21:59)
[2020-04-26] MEDS: FLUOCINONIDE 0.05% CREAM (15 GM TUBE) TP SCH ×2 (10:46→21:59)
[2020-04-26] MEDS: METHYL SALICYLATE/MENTHOL OINT 30 GM TUBE TP SCH ×2 (10:46→21:54)
[2020-04-26] MEDS: NICOTINE POLACRILEX 2 MG GUM BUC PRN (10:47)
[2020-04-26] MEDS: ATORVASTATIN CA 20 MG TABLET (FP) PO SCH (21:53)
[2020-04-26] MEDS: diphenhydrAMINE HCL 50 MG CAPSULE PO PRN (21:53)
[2020-04-26] MEDS: MELATONIN 5 MG TABLETS PO SCH (21:53)
[2020-04-26] MEDS: LOPERAMIDE HCL 2 MG CAPSULE PO PRN (21:53)
[2020-04-26] MEDS: THIAMINE HCL 100 MG TABLET (FP) PO SCH (21:59)
[2020-04-27] MEDS: GABAPENTIN 400 MG CAPSULE PO SCH ×3 (06:59→22:14)
[2020-04-27] MEDS: ACETAMINOPHEN 325 MG TABLET (FP) PO PRN ×3 (06:59→22:18)
[2020-04-27] MEDS: INSULIN (LEVEMIR) 100 UNITS/ML UNITS SQ SCH ×2 (07:17→22:20)
[2020-04-27] MEDS ORDERED: INSULIN (NOVOLOG) ASPART 100 UNITS/ML 10ML VIAL ONE ×2 (07:31→11:08)
[2020-04-27] MEDS: INSULIN SLIDING SCALE (NOVOLOG) 1 VIAL SQ SCH ×4 (08:07→22:21)
[2020-04-27] MEDS: PRENATAL VITAMINS W/ FOLIC ACID TABLET (FP) PO SCH (11:01)
[2020-04-27] MEDS: NICOTINE 14 MG/24 HOURS TOPICAL PATCH TD SCH (11:03)
[2020-04-27] MEDS: NIFEdipine E.R. 30 MG TABLET PO SCH (11:03)
[2020-04-27] MEDS: METHYL SALICYLATE/MENTHOL OINT 30 GM TUBE TP SCH ×2 (11:04→22:21)
[2020-04-27] MEDS: FLUOCINONIDE 0.05% CREAM (15 GM TUBE) TP SCH ×2 (11:05→22:20)
[2020-04-27] MEDS: CLOTRIMAZOLE 1% CREAM 15 GM TUBE TP SCH ×2 (11:05→22:21)
[2020-04-27] MEDS: ASPIRIN 81 MG CHEWABLE TABLETS PO SCH (11:10)
--- NOTE | 2020-04-27 14:50 | PN ---
[facility] Progress Note Note: c/o loose stool x 2 but not watery. Denies nausea or vomiting. Received Imodium but requests a medication change. Vital Signs - 24 hr 04/26/20 04/27/20 20:13 07:48 Temperature 97.1 F L Pulse Rate 94 H Respiratory 18 Rate Blood Pressure 111/74 O2 Sat by Pulse 98 98 Oximetry (%) Alert o x 3 nad oob ambulating with steady gait A:??Diarrhea P:D/c imodium Pepto- Bismol 524 mg po BID prn
[2020-04-27] MEDS: BISMUTH SUBSALICYLATE 262 MG/15 ML BTL PO PRN ×2 (14:59→22:46)
[2020-04-27] MEDS: ATORVASTATIN CA 20 MG TABLET (FP) PO SCH (22:13)
[2020-04-27] MEDS: THIAMINE HCL 100 MG TABLET (FP) PO SCH (22:13)
[2020-04-27] MEDS: MELATONIN 5 MG TABLETS PO SCH (22:14)
[2020-04-27] MEDS: diphenhydrAMINE HCL 50 MG CAPSULE PO PRN (22:17)
[2020-04-28] MEDS: MAG HYDROX/AL HYDROX/SIMETH 30 ML UNIT-DOSE CUP PO PRN (06:49)
[2020-04-28] MEDS: GABAPENTIN 400 MG CAPSULE PO SCH ×3 (06:50→21:57)
[2020-04-28] MEDS: INSULIN (LEVEMIR) 100 UNITS/ML UNITS SQ SCH ×2 (06:51→22:02)
[2020-04-28] MEDS: INSULIN SLIDING SCALE (NOVOLOG) 1 VIAL SQ SCH ×4 (06:52→22:32)
[2020-04-28] MEDS ORDERED: INSULIN (NOVOLOG) ASPART 100 UNITS/ML 10ML VIAL ONE ×2 (07:12→12:13)
[2020-04-28] MEDS: ERGOCALCIFEROL (VIT D2) 50,000 UNIT (1.25 MG) CAPSULE PO SCH (10:52)
[2020-04-28] MEDS: ASPIRIN 81 MG CHEWABLE TABLETS PO SCH (10:52)
[2020-04-28] MEDS: PRENATAL VITAMINS W/ FOLIC ACID TABLET (FP) PO SCH (10:52)
[2020-04-28] MEDS: NIFEdipine E.R. 30 MG TABLET PO SCH (10:52)
[2020-04-28] MEDS: NICOTINE 14 MG/24 HOURS TOPICAL PATCH TD SCH (10:53)
[2020-04-28] MEDS: ACETAMINOPHEN 325 MG TABLET (FP) PO PRN ×3 (10:54→22:00)
[2020-04-28] MEDS: METHYL SALICYLATE/MENTHOL OINT 30 GM TUBE TP SCH ×2 (10:55→22:01)
[2020-04-28] MEDS: FLUOCINONIDE 0.05% CREAM (15 GM TUBE) TP SCH ×2 (10:55→21:59)
[2020-04-28] MEDS: CLOTRIMAZOLE 1% CREAM 15 GM TUBE TP SCH ×2 (10:55→21:59)
[2020-04-28] MEDS: BISMUTH SUBSALICYLATE 262 MG/15 ML BTL PO PRN ×2 (10:58→18:29)
[2020-04-28] MEDS ORDERED: INSULIN (NOVOLOG) ASPART 100 UNITS/ML 10ML VIAL SQ ONE (11:58)
--- NOTE | 2020-04-28 12:00 | PN ---
[facility] Progress Note Note: Pt had a hypoglycemic event this morning as per nursing report. On arrival to the unit saw patient walking out of room with his food tray. States he did not eat right away after receiving 7:30 a.m insulin coverage. Nurse reported that pt was in exercise room talking with peers after receiving insulin and did not eat his breakfast before event. Pt ate his breakfast and juice and recovered quickly before process description writer got to the unit. Vital Signs - 24 hr 04/27/20 04/27/20 04/28/20 12:55 20:00 06:37 Temperature 97.3 F L Pulse Rate 88 Respiratory 16 Rate Blood Pressure 140/85 O2 Sat by Pulse 97 96 95 Oximetry (%) Laboratory Tests 04/20/20 04/21/20 04/21/20 20:37 06:52 12:02 POC Glucometer 361 167 286 04/21/20 04/21/20 04/22/20 16:20 20:36 06:16 POC Glucometer 233 369 333 04/22/20 04/22/20 04/22/20 10:57 17:11 20:50 POC Glucometer 392 298 283 04/23/20 04/23/20 04/23/20 06:35 11:58 16:36 POC Glucometer 254 208 240 04/23/20 04/24/20 04/24/20 20:31 06:16 11:56 POC Glucometer 346 257 264 04/24/20 04/24/20 04/25/20 17:01 21:24 06:41 POC Glucometer 281 233 241 04/25/20 04/25/20 04/25/20 11:18 16:33 20:08 POC Glucometer 297 280 302 04/26/20 04/26/20 04/26/20 06:31 11:07 16:28 POC Glucometer 310 259 295 04/26/20 04/27/20 04/27/20 20:53 06:57 11:07 POC Glucometer 289 203 264 04/27/20 04/27/20 04/28/20 16:51 20:18 06:47 POC Glucometer 263 259 311 04/28/20 04/28/20 04/28/20 08:49 08:51 08:59 POC Glucometer 16 49 77 04/28/20 04/28/20 04/28/20 09:10 09:58 11:53 POC Glucometer 107 155 280 Alert o x 3 nad oob ambulating with steady gait Maintain safety Monitor pt's food intake pattern Remind pt to eat soon as he receives his antidiabetic meds.
[2020-04-28] MEDS: ATORVASTATIN CA 20 MG TABLET (FP) PO SCH (21:57)
[2020-04-28] MEDS: THIAMINE HCL 100 MG TABLET (FP) PO SCH (21:58)
[2020-04-28] MEDS: MELATONIN 5 MG TABLETS PO SCH (21:59)
[2020-04-28] MEDS: diphenhydrAMINE HCL 50 MG CAPSULE PO PRN (21:59)
[2020-04-29] MEDS: ACETAMINOPHEN 325 MG TABLET (FP) PO PRN ×2 (06:38→12:15)
[2020-04-29] MEDS: GABAPENTIN 400 MG CAPSULE PO SCH ×2 (06:40→14:45)
[2020-04-29] MEDS ORDERED: INSULIN (NOVOLOG) ASPART 100 UNITS/ML 10ML VIAL ONE ×3 (07:20→12:34)
[2020-04-29 07:23] VITALS: BP 96/81; PULSE 99; TEMP 96.9
[2020-04-29] MEDS: INSULIN (LEVEMIR) 100 UNITS/ML UNITS SQ SCH (08:40)
[2020-04-29] MEDS: INSULIN SLIDING SCALE (NOVOLOG) 1 VIAL SQ SCH ×2 (08:41→12:11)
[2020-04-29] MEDS: NIFEdipine E.R. 30 MG TABLET PO SCH (12:07)
[2020-04-29] MEDS: PRENATAL VITAMINS W/ FOLIC ACID TABLET (FP) PO SCH (12:07)
[2020-04-29] MEDS: ASPIRIN 81 MG CHEWABLE TABLETS PO SCH (12:07)
[2020-04-29] MEDS: METHYL SALICYLATE/MENTHOL OINT 30 GM TUBE TP SCH (12:17)
[2020-04-29] MEDS: CLOTRIMAZOLE 1% CREAM 15 GM TUBE TP SCH (12:17)
[2020-04-29] MEDS: FLUOCINONIDE 0.05% CREAM (15 GM TUBE) TP SCH (12:18)
[2020-04-29] MEDS: NICOTINE 14 MG/24 HOURS TOPICAL PATCH TD SCH (12:18)
--- NOTE | 2020-04-29 15:07 | DS ---
[facility] Rehab Discharge Summary - [facility] Rehab Discharge Summary Admission Date: 04/20/20 Discharge Date: 04/30/20 - History Present History: Alcohol dependence, Cocaine dependence Pertinent Past History: HTN HLD DM Diabetic Neuropathy Chronic Lower Back pain Depression - Discharge Physical Exam Vital Signs: Vital Signs Temperature 96.9 F L 04/29/20 06:30 Pulse Rate 99 H 04/29/20 06:30 Respiratory Rate 18 04/29/20 06:30 Blood Pressure 96/81 04/29/20 06:30 O2 Sat by Pulse Oximetry (%) 97 04/29/20 06:30 Alert o x 3 nad oob ambulating with steady gait cardiac:s1 s2, rrr lungs:ctab MSK:Active FROM, all limbs, no edema Skin: warm, dry and intact. Pertinent Admission Physical Exam Findings: s/p detox Laboratory Tests 04/20/20 04/21/20 04/21/20 20:37 06:52 12:02 POC Glucometer 361 167 286 04/21/20 04/21/20 04/22/20 16:20 20:36 06:16 POC Glucometer 233 369 333 04/22/20 04/22/20 04/22/20 10:57 17:11 20:50 POC Glucometer 392 298 283 04/23/20 04/23/20 04/23/20 06:35 11:58 16:36 POC Glucometer 254 208 240 04/23/20 04/24/20 04/24/20 20:31 06:16 11:56 POC Glucometer 346 257 264 04/24/20 04/24/20 04/25/20 17:01 21:24 06:41 POC Glucometer 281 233 241 04/25/20 04/25/20 04/25/20 11:18 16:33 20:08 POC Glucometer 297 280 302 04/26/20 04/26/20 04/26/20 06:31 11:07 16:28 POC Glucometer 310 259 295 04/26/20 04/27/20 04/27/20 20:53 06:57 11:07 POC Glucometer 289 203 264 04/27/20 04/27/20 04/28/20 16:51 20:18 06:47 POC Glucometer 263 259 311 04/28/20 04/28/20 04/28/20 08:49 08:51 08:59 POC Glucometer 16 49 77 04/28/20 04/28/20 04/28/20 09:10 09:58 11:53 POC Glucometer 107 155 280 04/28/20 04/28/20 04/29/20 17:12 20:00 06:34 POC Glucometer 248 195 268 04/29/20 12:07 POC Glucometer 382 - Treatment Discharge Condition: Discharge condition good, Rehabilitated safely Hospital Course: [facility] - Medication Discharge Medications: Ambulatory Orders Sertraline HCl [Zoloft -] 50 mg PO DAILY 03/21/19 Clotrimazole [Jock Itch Relief] 15 gm TP BID #1 cream..g. 04/08/19 Diphenhydramine [Benadryl Capsule -] 25 mg PO HS PRN #30 capsule 06/06/19 Ergocalciferol [Vitamin D2] 50,000 unit PO WEEKLY #4 capsule 06/06/19 Fluocinonide 0.05% Cream [Lidex 0.05% Cream -] 1 applic TP BID #1 tube 06/06/19 Leuprolide Acetate [Lupron Depot 7.5MG -] 7.5 mg IM MONTHLY #1 kit 06/06/19 Multivitamins [Multivit ([facility] Formulary)] 1 tab PO DAILY #30 tab 06/06/19 Aspirin [ASA -] 81 mg PO DAILY #14 tab.chew 10/08/19 Atorvastatin Ca [Lipitor] 20 mg PO HS #14 tablet 10/08/19 Calcium Carbonate/Vitamin D3 [Calcium 500-Vit D3 200 Caplet] 1 each PO BID #30 tablet 10/08/19 Enalapril Maleate [Vasotec -] 2.5 mg PO DAILY #14 tablet 10/08/19 Gabapentin [Neurontin -] 800 mg PO TID #45 capsule 10/08/19 Diclofenac Sodium [Voltaren] 100 gm TP PRN 03/14/20 Insulin Glargine,Hum.rec.anlog [Basaglar Kwikpen U-100] 40 unit SQ BID 03/14/20 Insulin Lispro [Admelog Solostar] 35 unit SQ TID 03/14/20 Lidocaine HCl [Aspercreme] 76.5 gm TP PRN 03/14/20 Gabapentin [Neurontin -] 800 mg PO TID capsule 04/20/20 Ibuprofen [Motrin -] 600 mg PO PRN PRN 04/20/20 Insulin (Levemir) [Levemir Vial] 40 units SQ BID units 04/20/20 Insulin Sliding Scale [Novolog Vial Sliding Scale -] 1 vial SQ TIDAC units 0 04/20/20 Nifedipine [Nifedipine ER] 30 mg PO DAILY 04/22/20 - Medication-Assisted Treatment (MAT) Medication-Assisted Treatment (MAT): No - Discharge Instructions Diet, activity, other medical instructions: Diet:LAVON/low fat diet Activity: oob ad cristian with cane Other medical instructions:follow up with PCP for medical management - Diagnosis (1) Nicotine dependence Status: Chronic Qualifiers: Nicotine product type: cigarettes Substance use status: uncomplicated Qualified Code(s): F17.210 - Nicotine dependence, cigarettes, uncomplicated (2) Alcohol use disorder Status: Chronic (3) IDDM (insulin dependent diabetes mellitus) Status: Chronic (4) Chronic low back pain Status: Chronic Qualifiers: Back pain laterality: unspecified Sciatica presence: unspecified whether sciatica present Qualified Code(s): M54.5 - Low back pain; G89.29 - Other chronic pain (5) HLD (hyperlipidemia) Status: Chronic Qualifiers: Hyperlipidemia type: unspecified Qualified Code(s): E78.5 - Hyperlipidemia, unspecified (6) Essential hypertension Status: Chronic (7) Prostatic cancer Status: Resolved (8) Cocaine use disorder Status: Chronic (9) Neuropathy Status: Chronic - Follow-up Referral Minutes to complete discharge: 25 - AMA Did Patient Leave Against Medical Advice: No Additional Comments: Pt reports he has own meds.
[2020-04-29] MEDS: BISMUTH SUBSALICYLATE 262 MG/15 ML BTL PO PRN (15:20)
== END 2020-04-29 15:25 | disposition home or self-care (01) | DRG 772 ==
LOC: YASAS 18:06 → Y5N 18:13
PROVIDERS: ADMIT Allergy & Immunology; ATTEND Allergy & Immunology
PROC: HZ42ZZZ Group Counseling for Substance Abuse Treatment, Cognitive-Behavioral (ICD-10-PCS; principal; 2020-04-20)
DX: F10.20 Alcohol dependence, uncomplicated (principal); F14.20 Cocaine dependence, uncomplicated; F16.10 Hallucinogen abuse, uncomplicated; F17.210 Nicotine dependence, cigarettes, uncomplicated; F19.282 Other psychoactive substance dependence with psychoactive substance-induced sleep disorder; F32.9 Major depressive disorder, single episode, unspecified; I10 Essential (primary) hypertension; E78.5 Hyperlipidemia, unspecified; E11.42 Type 2 diabetes mellitus with diabetic polyneuropathy; Z79.4 Long term (current) use of insulin; M17.11 Unilateral primary osteoarthritis, right knee; M54.5 Low back pain; G89.29 Other chronic pain; Z85.46 Personal history of malignant neoplasm of prostate; Z99.89 Dependence on other enabling machines and devices; Z90.49 Acquired absence of other specified parts of digestive tract; Z56.0 Unemployment, unspecified; Z59.0 Homelessness
CPT/HCPCS: 82962

== ENCOUNTER 2020-06-15 12:15 | Inpatient (IN) | payer OTHER ==
--- NOTE | 2020-06-15 12:03 | HP ---
[facility] Rehab Assess/Revision - Admission History Ad[facility] - Findings Detox History & Physical reviewed: Yes Concur with findings: Yes Inpatient Rehab Admission - Rehab Decision to Admit Inpatient rehab admission?: Yes - Initial Determination Are CD services needed?: Yes Free of communicable disease: Yes Not in need of hospitalization: Yes - Rehab Admission Criteria Previous failed treatment: Yes Poor recovery environment: Yes Comorbidities: Yes Lacks judgement: Yes Patient is meeting Inpatient Rehab admission criteria:: Yes
--- OUTSIDE RECORDS SUMMARY | 2020-06-15 12:21 | XMS ---
:1965 Author Organization [facility] Care Team Providers Name Role Phone MD Frederic Unavailable Unavailable MD Frederic Unavailable Unavailable MD Frederic Unavailable Unavailable MD Frederic Unavailable Unavailable MD Frederic Unavailable Unavailable EMERGENCY SERVICE, X Unavailable Unavailable Re-disclosure Warning The records that you are about to access may contain information from federally- assisted alcohol or drug abuse programs. If such information is present, then the following federally mandated warning applies: This information has been disclosed to you from records protected by federal confidentiality rules (42 CFR part 2). The federal rules prohibit you from making any further disclosure of this information unless further disclosure is expressly permitted by the written consent of the person to whom it pertains or as otherwise permitted by 42 CFR part 2. A general authorization for the release of medical or other information is NOT sufficient for this purpose. The Federal rules restrict any use of the information to criminally investigate or prosecute any alcohol or drug abuse patient.The records that you are about to access may contain highly sensitive health information, the redisclosure of which is protected by Article 27-F of the [facility] Public Health law. If you continue you may haveaccess to information: Regarding HIV / AIDS; Provided by facilities licensed or operated by the [facility] Office of Mental Health; or Provided by the [facility] Office for People With Developmental Disabilities. If such information is present, then the following [facility] mandated warning applies: This information has been disclosed to you from confidential records which are protected by state law. State law prohibits you from making any further disclosure of this information without the specific written consent of the person to whom it pertains, or as otherwise permitted by law. Any unauthorized further disclosure in violation of state law may result in a fine or long term sentence or both. A general authorization for the release of medical or other information is NOT sufficient authorization for further disclosure. Encounters Encounter Providers Location Date Indications Data Source(s ) Emergency Attender: Huang 03/15/2020 [facility] Frederic MDAttender: 03:32:00 PM [facility] Care EMERGENCY SERVICE, EDT Corpor ation XAdmitter: Huang De La Garza MD TRANSFER Medications Medication Brand Start Product Dose Route Administrative Pharmacy [facility] Indications Reaction Description Data Name Date Form Instructions Instructions Source(s) Lidoderm 5% Lidode UNK active Lidode rm 5% [facility] (Lidocai rm 5% 2019 patch (Lidocaine) r [facility] (Lidoc 09:42: Patch Health 33 PM Topical 1 Care EDT patch Corporatio Topical n Apply patch to most painful area. Patch may remain in place for up to 12 hours in any 24-hour period. Medication administered onsite Lidoderm Lidoderm 03/15/2020 2 patch UNK active Lidoderm 5% [place] 5% 5% 09:42:21 PM (Lidocaine) C [place] (Lidocai (Lidocai EDT Patch Topica [facility] 2 patch Corporation Topical Apply patch to most painful area. Patch(es) may remain in place for up to 12 hours in any 24-hour period. Medication administered onsite Toradol 30 Toradol 30 03/15/2020 15 mg UNK active Toradol 30 [place] mg/mL (Ke mg/mL (Ke 08:47:11 PM [facility] Injection 15 Corpora tion mg IVP Administer over 5 minutes Medication administered onsite Tetracaine Tetracaine 03/15/2020 1 drop UNK active Tetracaine [place] drops (0. drops (0. 07:27:[address] [facility] EDT (0.5%) [facility] Ophthalmic 1 drop Ocular Medication administered onsite Insurance Providers Payer name Policy type Policy ID Covered Covered alliance party's Policy P flaco / Coverage alliance party ID relationship to Leahy Inf ormation type leahy [facility] [id number] SP [id number] G [facility] [id number] SP [id number] G UNK UNK [facility] [id number] SP [id number] G [place] [id number] SP [id number] [employer] Problems, Conditions, and Diagnoses Code Display Name Description Problem Type Effective Data Sour ce(s) Dates 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 [place] (current) use of (CURRENT) USE OF 03:32:00 PM C [employer] aspirin ASPIRIN EDT Care [employer] 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 03/15/2020 [place] (current) use of (CURRENT) USE OF 03:32:00 PM C [employer] insulin INSULIN EDT Care [facility] Z88.0 Allergy status to ALLERGY STATUS TO Diagnosis 03/15/2020 [place] penicillin PENICILLIN 03:32:00 [facility] EDT Care [facility] F10.10 Alcohol abuse, ALCOHOL ABUSE, Diagnosis 03/15/2020 [place] uncomplicated UNCOMPLICATED 03:32:00 [facility] Content RamenT Care [facility] I10 Essential ESSENTIAL Diagnosis 03/15/2020 [place] (primary) (PRIMARY) 03:32:00 [facility] hypertension HYPERTENSION EDT Care [facility] H55.00 Unspecified UNSPECIFIED Diagnosis 03/15/2020 [place] nystagmus NYSTAGMUS 03:32:00 [facility] EDT Care [facility] E11.9 Type 2 diabetes TYPE 2 DIABETES Diagnosis 03/15/2020 [place] linda mellitus without MELLITUS WITHOUT 03:32:00 PM [place] complications COMPLICATIONS EDT Care Corporation M48.02 Spinal stenosis, SPINAL STENOSIS, Diagnosis 03/15/[address] 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/15/2020 [facility] r abuse, ABUSE, 03:32:00 [facility] uncomplicated UNCOMPLICATED EDT Care [facility] Y99.8 Other external OTHER EXTERNAL Diagnosis 03/15/2020 [place] cause status CAUSE STATUS 03:32:00 PM [facility] Y92.89 Other specified OTH PLACES THE Diagnosis 03/15/2020 [facility] as the PLACE OF 03:32:00 PM [facility] place of OCCURRENCE OF THE EDT Care occurrence of the EXTERNAL CAUSE Cor poration external cause W19.XXXA Unspecified fall, UNSPECIFIED FALL, Diagnosis 03/15/2020 [place] initial encounter INITIAL ENCOUNTER 03:32:00 PM [facility] IntenseDebate R55 Syncope and SYNCOPE AND Diagnosis 03/15/2020 [place] collapse COLLAPSE 03:32:00 PM [facility] IntenseDebate M54.5 Low back pain LOW BACK PAIN Diagnosis 03/15/2020 [facility] 03:32:00 [facility] IntenseDebate Results ID Date Data Source [id number] 05/11/2020 02:42:00 AM EDT [facility] Name Value Range Interpretation Description Data Sup porting Code Source(s) Document(s ) SARS-CoV-2 [facility] (COVID-19) RNA panel - Unspecified specimen by LIUDMILA with probe detection This lab was ordered by PATRICIA PADILLA and reported by [facility]. ID Date Data Source [id number] 04/15/2020 09:20:00 PM EDT [facility] Name Value Range Interpretation Description Data Sup porting Code Source(s) Document(s ) SARS [facility] coronavirus 2 RNA This lab was ordered by [facility] Bill Inter and reported by [facility]. ID Date Data Source [id number] 03/14/2020 11:30:00 AM EDT [facility] Name Value Range Interpretation Description Data Sup porting Code Source(s) Document(s ) SARS [facility] coronavirus 2 RNA This lab was ordered by [facility] Bill Inter and reported by [facility]. ID Date Data Source [id number] 02/14/2020 06:57:00 PM EDT [facility] Name Value Range Interpretation Code Description Data Conchita rce(s) Supporting Document(s ) SARS-COV-2 [facility] PCR This lab was ordered by PATRICIA PADILLA and reported by [facility]. Procedure Patient Treatment Plan of Care Planned Activity Planned Date Details Description Data Source (s) Lidoderm 5% (Lidocai 03/15/2020 09:42:33 [facility] Cor poration Lidoderm 5% (Lidocai 03/15/2020 09:42:21 [facility] Cor poration Toradol 30 mg/mL (Ke 03/15/2020 08:47:11 [facility] Cor poration Tetracaine drops (0. 03/15/2020 07:27:30 [facility] Cor poration
--- OUTSIDE RECORDS SUMMARY | 2020-06-15 12:21 | XMS ---
[...] is protected by Article 27-F of the [facility] Public Health law. If you continue you may haveaccess to information: Regarding HIV / AIDS; Provided by facilities licensed or operated by the [facility] Office of Mental Health; or Provided by the [facility] Office for People With Developmental Disabilities. If such information is present, then the following [facility] mandated warning applies: This information has been [...] law may result in a fine or shelter sentence or both. A general authorization for the release of medical or other information is NOT sufficient authorization for further disclosure. Encounters Encounter Providers Location Date Indications Data Source(s ) Emergency Attender: Huang 03/15[facility]2020 [facility] Frederic MDAttender: 03:32:00 PM [facility] Care EMERGENCY SERVICE, EDT Corpor ation XAdmitter: Huang De La Garza MD TRANSFER Medications Medication Brand Start Product Dose Route Administrative Pharmacy [facility] Indications Reaction Description Data Name Date Form Instructions Instructions Source(s) Lidoderm 5% L[facility] UNK [facility]% 2019 patch (Lidocaine) r [facility] (Lidoc 09:42: Patch Health 33 PM Topical 1 Care EDT patch Corporatio Topical n Apply patch to most painful area. Patch may remain in place for up to 12 hours in any 24-hour period. Medication administered onsite Lidoderm Lidoderm 03/15/2020 2 patch UNK active Lidoderm 5% [place] 5% 5% 09:42:21 PM (Lidocaine) [place] (Lidocai (Lidocai EDT Patch [facility] 2 patch Corporation Topical Apply patch to most painful area. Patch(es) may remain in place for up to 12 hours in any 24-hour period. Medication administered onsite Toradol 30 Toradol 30 03/15/2020 15 mg UNK active Toradol 30 [place] mg/mL (Ke mg/mL (Ke 08:47:11 PM mg/ mL [facility] Care Injection 15 Corpora tion mg IVP Administer over 5 minutes Medication administered onsite Tetracaine Tetracaine 03/15/2020 1 drop UNK active Tetracaine [place] drops (0. drops (0. 07:27:30 PM tadeo ps [facility] EDT (0.5%) [facility] Ophthalmic 1 drop Ocular Medication administered onsite Insurance Providers Payer name Policy type Policy ID Covered Covered republican's Policy P flaco / Coverage republican ID relationship to Leahy Inf ormation type leahy [facility] [id number] SP [id number] G [facility] [id number] SP [id number] G UNK UNK [facility] [id number] SP [id number] G [facility] [id number] SP [id number] [place] Problems, Conditions, and Diagnoses Code Display Name Description Problem Type Effective Data Sour ce(s) Dates 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 03/15/2020 [place] (current) use of (CURRENT) USE OF 03:32:00 PM C [employer] aspirin ASPIRIN EDT Care [employer] 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 03/15/2020 [place] (current) use of (CURRENT) USE OF 03:32:00 PM C [employer] insulin INSULIN EDT Care [employer] Z88.0 Allergy status to ALLERGY STATUS TO Diagnosis 03/15/2020 [place] penicillin PENICILLIN 03:32:00 [facility] EDT Care [employer] F10.10 Alcohol abuse, ALCOHOL ABUSE, Diagnosis 03/15/2020 [place] uncomplicated UNCOMPLICATED 03:32:00 [facility] Travel NotesT Care [employer] I10 Essential ESSENTIAL Diagnosis 03/15/2020 [place] (primary) (PRIMARY) 03:32:00 [facility] hypertension HYPERTENSION EDT Care [employer] H55.00 Unspecified UNSPECIFIED Diagnosis 03/15/2020 [place] nystagmus NYSTAGMUS 03:32:00 [facility] EDT Care [employer] E11.9 Type 2 diabetes TYPE 2 DIABETES Diagnosis 03/15/2020 [place] linda mellitus without MELLITUS WITHOUT 03:32:00 PM [employer] complications COMPLICATIONS EDT Care Corporation M48.02 Spinal stenosis, SPINAL STENOSIS, Diagnosis 03/15/2020 [facility] cervical region CERVICAL REGION 03:32:00 PM [facility] EDT [facility] C61 Malignant neoplasm MALIGNANT Diagnosis 03/15/2020 [place] of prostate NEOPLASM OF 03:32:00 PM [facility] PROSTATE EDT Care Corporation R74.8 Abnormal levels of ABNORMAL LEVELS Diagnosis 03/15/2020 [facility] other serum OF OTHER SERUM 03:32:00 PM [facility] enzymes ENZYMES EDT Care [employer] F16.10 Hallucinogen HALLUCINOGEN Diagnosis 03/15/2020 [facility] r abuse, ABUSE, 03:32:00 [facility] uncomplicated UNCOMPLICATED EDT Care [employer] Y99.8 Other external OTHER EXTERNAL Diagnosis 03/15/2020 [place] cause status CAUSE STATUS 03:32:00 PM [facility] Y92.89 Other specified OTH PLACES THE Diagnosis 03/15/2020 [facility] as the PL[facility] OF 03:32:00 PM [facility] place of OCCURRENCE OF THE EDT Care occurrence of the EXTERNAL CAUSE Cor poration external cause W19.XXXA Unspecified fall, UNSPECIFIED FALL, Diagnosis 03/15/2020 [place] initial encounter INITIAL ENCOUNTER 03:32:00 PM [facility] [employer] R55 Syncope and SYNCOPE AND Diagnosis 03/15/2020 [place] collapse COLLAPSE 03:32:00 PM [facility] [employer] M54.5 Low back pain LOW BACK PAIN Diagnosis 03/15/2020 [facility] 03:32:00 PM [facility] [employer] Results ID Date Data Source [id number] 05/11/2020 02:42:00 AM EDT [facility] Name Value Range Interpretation Description Data Sup porting Code Source(s) Document(s ) SARS-CoV-2 [facility] (COVID-19) RNA panel - Unspecified specimen by LIUDMILA with probe detection This lab was ordered by PATRICIA PADILLA and reported by [facility]. ID Date Data Source [id number] 04/15/2020 09:20:00 PM EDT [facility] Name Value Range Interpretation Description Data Sup porting Code Source(s) Document(s ) SARS [facility] coronavirus 2 RNA This lab was ordered by [facility] and reported by [facility]. ID Date Data Source [id number] 03/14/2020 11:30:00 AM EDT [facility] Name Value Range Interpretation Description Data Sup porting Code Source(s) Document(s ) SARS [facility] coronavirus 2 RNA This lab was ordered by [facility] Ac ct [facility] Inter and reported by [facility]. ID Date Data Source [id number] 02/14/2020 06:57:00 PM EDT [facility] Name Value Range Interpretation Code Description Data Conchita rce(s) Supporting Document(s ) SARS-COV-2 [facility] PCR This lab was ordered by PATRICIA PADILLA and reported by [facility]. Procedure Patient Treatment Plan of Care Planned Activity Planned Date Details Description Data Source (s) Lidoderm 5% (Lidocai 03/15/2020 09:42:33 [facility] Cor poration Lidoderm 5% (Lidocai 03/15/2020 09:42:21 [facility] Cor poration Toradol 30 mg/mL (Ke 03/15/2020 08:47:11 [facility] Cor poration Tetracaine drops (0. 03/15/2020 07:27:30 [facility] Cor poration
[2020-06-15] MEDS ORDERED: MENTHOL/PHENOL 1 EACH UD MM PRN (13:58)
[2020-06-15] MEDS ORDERED: LOPERAMIDE HCL 2 MG CAPSULE PO PRN (13:58)
[2020-06-15] MEDS ORDERED: guaiFENesin 200 MG/10 ML 10 ML UNIT-DOSE CUPS PO PRN (13:58)
[2020-06-15] MEDS ORDERED: P-EPHED 60MG/TRIPROLIDI 2.5MG TABLET PO PRN (13:58)
[2020-06-15] MEDS ORDERED: NICOTINE POLACRILEX 2 MG GUM BUC PRN (13:58)
[2020-06-15] MEDS ORDERED: MAG HYDROX/AL HYDROX/SIMETH 30 ML UNIT-DOSE CUP PO PRN (13:58)
[2020-06-15] MEDS ORDERED: MAGNESIUM CITRATE 300 ML BOTTLE PO PRN (13:58)
[2020-06-15] MEDS ORDERED: MAGNESIUM HYDROX 2400MG/30ML ORAL SUSPENSION 30 ML CUP PO PRN (13:58)
[2020-06-15] MEDS ORDERED: diphenhydrAMINE HCL 25 MG CAPSULE (FP) PO PRN (13:59)
[2020-06-15] MEDS ORDERED: COLLOIDAL OATMEAL 1 BAR EACH TP PRN (14:03)
[2020-06-15] MEDS: GABAPENTIN 400 MG CAPSULE PO SCH ×2 (15:44→21:41)
[2020-06-15] MEDS: ACETAMINOPHEN 325 MG TABLET (FP) PO PRN (16:03)
[2020-06-15] MEDS: INSULIN SLIDING SCALE (NOVOLOG) 1 VIAL SQ SCH ×2 (17:40→21:48)
[2020-06-15] MEDS ORDERED: INSULIN (NOVOLOG) ASPART 100 UNITS/ML 10ML VIAL ONE ×2 (17:45→21:45)
[2020-06-15] MEDS: ATORVASTATIN CA 20 MG TABLET (FP) PO SCH (21:41)
[2020-06-15] MEDS: MELATONIN 5 MG TABLETS PO SCH (21:41)
[2020-06-15] MEDS: THIAMINE HCL 100 MG TABLET (FP) PO SCH (21:43)
[2020-06-15] MEDS: INSULIN (LEVEMIR) 100 UNITS/ML UNITS SQ SCH (21:50)
[2020-06-15] MEDS: FLUOCINONIDE 0.05% CREAM (15 GM TUBE) TP SCH (21:51)
[2020-06-15] MEDS: CLOTRIMAZOLE 1% CREAM 15 GM TUBE TP SCH (21:51)
[2020-06-16] MEDS: GABAPENTIN 400 MG CAPSULE PO SCH ×3 (06:48→21:12)
[2020-06-16] MEDS: ACETAMINOPHEN 325 MG TABLET (FP) PO PRN (06:50)
[2020-06-16] MEDS ORDERED: INSULIN (NOVOLOG) ASPART 100 UNITS/ML 10ML VIAL ONE ×2 (07:28→21:57)
[2020-06-16] MEDS: INSULIN SLIDING SCALE (NOVOLOG) 1 VIAL SQ SCH ×4 (07:35→21:55)
[2020-06-16] MEDS: PRENATAL VITAMINS W/ FOLIC ACID TABLET (FP) PO SCH (10:00)
[2020-06-16] MEDS: NICOTINE 14 MG/24 HOURS TOPICAL PATCH TD SCH (10:00)
[2020-06-16] MEDS: NIFEdipine E.R. 30 MG TABLET PO SCH (10:00)
[2020-06-16] MEDS: ASPIRIN 81 MG CHEWABLE TABLETS PO SCH (10:00)
[2020-06-16] MEDS: ENALAPRIL MALEATE 2.5 MG TABLET PO SCH (10:00)
[2020-06-16] MEDS: METHOCARBAMOL 500 MG TABLET PO PRN ×3 (10:02→21:14)
[2020-06-16] MEDS: FLUOCINONIDE 0.05% CREAM (15 GM TUBE) TP SCH ×2 (10:04→21:53)
[2020-06-16] MEDS: CLOTRIMAZOLE 1% CREAM 15 GM TUBE TP SCH ×2 (10:05→21:53)
[2020-06-16] MEDS ORDERED: INSULIN (LEVEMIR) 100 UNITS/ML UNITS SQ ONE (12:07)
[2020-06-16] MEDS: INSULIN (LEVEMIR) 100 UNITS/ML UNITS SQ SCH ×2 (12:10→21:51)
[2020-06-16] MEDS ORDERED: diphenhydrAMINE HCL 50 MG CAPSULE PO PRN (13:29)
[2020-06-16] MEDS ORDERED: PT OWN MED DRAWER 7, Y5N ONE ×2 (14:44→16:09)
[2020-06-16] MEDS: ATORVASTATIN CA 20 MG TABLET (FP) PO SCH (21:12)
[2020-06-16] MEDS: THIAMINE HCL 100 MG TABLET (FP) PO SCH (21:13)
[2020-06-16] MEDS: MELATONIN 5 MG TABLETS PO SCH (21:54)
[2020-06-17] MEDS: IBUPROFEN 400 MG TABLET (FP) PO PRN ×2 (00:58→12:09)
[2020-06-17] MEDS: hydrOXYzine PAMOATE 25 MG CAPSULE (FP) PO PRN ×2 (00:59→10:11)
[2020-06-17] MEDS: METHOCARBAMOL 500 MG TABLET PO PRN ×4 (03:58→17:06)
[2020-06-17] MEDS: GABAPENTIN 400 MG CAPSULE PO SCH ×2 (06:44→14:26)
[2020-06-17] MEDS: ACETAMINOPHEN 325 MG TABLET (FP) PO PRN ×2 (06:47→16:51)
[2020-06-17] MEDS ORDERED: INSULIN (NOVOLOG) ASPART 100 UNITS/ML 10ML VIAL ONE ×2 (07:20→16:39)
[2020-06-17] MEDS: INSULIN SLIDING SCALE (NOVOLOG) 1 VIAL SQ SCH ×3 (07:47→16:41)
[2020-06-17 08:57] VITALS: BP 106/64; PULSE 105; TEMP 97
[2020-06-17] MEDS ORDERED: PT OWN MED DRAWER 7, Y5N ONE ×4 (09:11→18:30)
[2020-06-17] MEDS: PRENATAL VITAMINS W/ FOLIC ACID TABLET (FP) PO SCH (10:10)
[2020-06-17] MEDS: ENALAPRIL MALEATE 2.5 MG TABLET PO SCH (10:11)
[2020-06-17] MEDS: NIFEdipine E.R. 30 MG TABLET PO SCH (10:11)
[2020-06-17] MEDS: ASPIRIN 81 MG CHEWABLE TABLETS PO SCH (10:11)
[2020-06-17] MEDS: NICOTINE 14 MG/24 HOURS TOPICAL PATCH TD SCH (10:11)
[2020-06-17] MEDS: CLOTRIMAZOLE 1% CREAM 15 GM TUBE TP SCH (10:12)
[2020-06-17] MEDS: FLUOCINONIDE 0.05% CREAM (15 GM TUBE) TP SCH (10:13)
[2020-06-17] MEDS ORDERED: INSULIN (LEVEMIR) 100 UNITS/ML UNITS SQ ONE (11:59)
[2020-06-17] MEDS: INSULIN (LEVEMIR) 100 UNITS/ML UNITS SQ SCH (12:01)
--- NOTE | 2020-06-17 18:28 | DS ---
[facility] Rehab Discharge Summary - [facility] Rehab Discharge Summary Admission Date: 06/15/20 Discharge Date: 06/17/20 - History Additional Comments: Patient is leaving against medical advice. He reports that he has an important personal issue to take care of and that he is not obliged to complete Rehab. Risks and consequences of his action reinforced and he verbalized understanding. Patient had left against medical advice multiple times and he had signed a co ntract to complete this admission as specified. He is alert and oriented x 3, ambulates independently, not in acute distress and not medically cleared for discharge. Patient reports that he has his medications as prescribed. Pertinent Past History: Alcohol dependence IDDM Neuropathy Cocaine dependence Bipolar disorder PCP dependence Depression Insomnia Vision loss Hypertension Hyperlipidemia Arthritis of right knee Prostate Ca Low back pain - Discharge Physical Exam Vital Signs: Vital Signs Temperature 97 F L 06/17/20 08:16 Pulse Rate 105 H 06/17/20 08:16 Respiratory Rate 19 06/17/20 08:16 Blood Pressure 106/64 06/17/20 08:16 O2 Sat by Pulse Oximetry (%) 97 06/17/20 15:15 Laboratory Last Values POC Glucometer 344 UNITS (80-120) 06/17/20 16:39 Pertinent Admission Physical Exam Findings: Alcohol withdrawal symptoms - Medication Discharge Medications: Ambulatory Orders Sertraline HCl [Zoloft -] 50 mg PO DAILY 03/21/19 Clotrimazole [Jock Itch Relief] 15 gm TP BID #1 cream..g. 04/08/19 Diphenhydramine [Benadryl Capsule -] 25 mg PO HS PRN #30 capsule 06/06/19 Ergocalciferol [Vitamin D2] 50,000 unit PO WEEKLY #4 capsule 06/06/19 Fluocinonide 0.05% Cream [Lidex 0.05% Cream -] 1 applic TP BID #1 tube 06/06/19 Leuprolide Acetate [Lupron Depot 7.5MG -] 7.5 mg IM MONTHLY #1 kit 06/06/19 Multivitamins [Multivit ([facility] Formulary)] 1 tab PO DAILY #30 tab 06/06/19 Aspirin [ASA -] 81 mg PO DAILY #14 tab.chew 10/08/19 Atorvastatin Ca [Lipitor] 20 mg PO HS #14 tablet 10/08/19 Calcium Carbonate/Vitamin D3 [Calcium 500-Vit D3 200 Caplet] 1 each PO BID #30 tablet 10/08/19 Enalapril Maleate [Vasotec -] 2.5 mg PO DAILY #14 tablet 10/08/19 Gabapentin [Neurontin -] 800 mg PO TID #45 capsule 10/08/19 Diclofenac Sodium [Voltaren] 100 gm TP PRN 03/14/20 Insulin Glargine,Hum.rec.anlog [Basaglar Kwikpen U-100] 40 unit SQ BID 03/14/20 Insulin Lispro [Admelog Solostar] 35 unit SQ TID 03/14/20 Lidocaine HCl [Aspercreme] 76.5 gm TP PRN 03/14/20 Gabapentin [Neurontin -] 800 mg PO TID capsule 04/20/20 Ibuprofen [Motrin -] 600 mg PO PRN PRN 04/20/20 Insulin (Levemir) [Levemir Vial] 40 units SQ BID units 04/20/20 Insulin Sliding Scale [Novolog Vial Sliding Scale -] 1 vial SQ TIDAC units 04/20/20 Nifedipine [Nifedipine ER] 30 mg PO DAILY 04/22/20 - Medication-Assisted Treatment (MAT) Medication-Assisted Treatment (MAT): No - Discharge Instructions Diet, activity, other medical instructions: Diet: Diabetic diet Activity: As tolerated Other medical instructions: Follow up with PCP - Diagnosis (1) Alcohol dependence with uncomplicated withdrawal Status: Chronic (2) Cocaine dependence Status: Chronic Qualifiers: Substance use status: with unspecified cocaine-induced disorder Qualified Code(s): F14.29 - Cocaine dependence with unspecified cocaine-induced disorder (3) Depression Status: Chronic Qualifiers: Depression Type: unspecified Qualified Code(s): F32.9 - Major depressive disorder, single episode, unspecified (4) Insomnia Status: Chronic (5) Phencyclidine dependence Status: Chronic (6) Vision loss Status: Chronic (7) Anxiety Status: Chronic (8) Arthritis of right knee Status: Chronic (9) Chronic low back pain Status: Chronic Qualifiers: Back pain laterality: unspecified Sciatica presence: unspecified whether sciatica present Qualified Code(s): M54.5 - Low back pain; G89.29 - Other chronic pain (10) Cocaine use disorder Status: Chronic (11) Depressive disorder Status: Chronic (12) Essential hypertension Status: Chronic (13) HLD (hyperlipidemia) Status: Chronic Qualifiers: Hyperlipidemia type: unspecified Qualified Code(s): E78.5 - Hyperlipidemia, unspecified (14) IDDM (insulin dependent diabetes mellitus) Status: Chronic (15) Neuropathy Status: Chronic (16) Nicotine dependence Status: Chronic Qualifiers: Nicotine product type: cigarettes Substance use status: uncomplicated Qualified Code(s): F17.210 - Nicotine dependence, cigarettes, uncomplicated (17) Sedative, hypnotic or anxiolytic dependence, uncomplicated Status: Chronic (18) Prostatic cancer Status: Resolved - Follow-up Referral Minutes to complete discharge: 30 - AMA Did Patient Leave Against Medical Advice: Yes
== END 2020-06-17 18:15 | disposition left against medical advice (07) | DRG 770 ==
LOC: YASAS 12:15 → Y3W 12:16
PROVIDERS: ADMIT Allergy & Immunology; ATTEND Allergy & Immunology
PROC: HZ42ZZZ Group Counseling for Substance Abuse Treatment, Cognitive-Behavioral (ICD-10-PCS; principal; 2020-06-15)
DX: F10.20 Alcohol dependence, uncomplicated (principal); F14.20 Cocaine dependence, uncomplicated; F13.20 Sedative, hypnotic or anxiolytic dependence, uncomplicated; F16.20 Hallucinogen dependence, uncomplicated; F17.210 Nicotine dependence, cigarettes, uncomplicated; F31.9 Bipolar disorder, unspecified; E11.42 Type 2 diabetes mellitus with diabetic polyneuropathy; Z79.4 Long term (current) use of insulin; G47.00 Insomnia, unspecified; I10 Essential (primary) hypertension; E78.5 Hyperlipidemia, unspecified; M17.11 Unilateral primary osteoarthritis, right knee; M54.5 Low back pain; G89.29 Other chronic pain; Z85.46 Personal history of malignant neoplasm of prostate; Z88.0 Allergy status to penicillin; Z91.018 Allergy to other foods
CPT/HCPCS: 82962

== ENCOUNTER 2020-10-14 14:00 | Inpatient (IN) | payer OTHER ==
[2020-10-14 15:21] VITALS: BMI 29.3
[2020-10-14] MEDS ORDERED: MAGNESIUM CITRATE 300 ML BOTTLE PO PRN (19:41)
[2020-10-14] MEDS ORDERED: MENTHOL/PHENOL 1 EACH UD MM PRN (19:41)
[2020-10-14] MEDS ORDERED: MAGNESIUM HYDROX 2400MG/30ML ORAL SUSPENSION 30 ML CUP PO PRN (19:41)
[2020-10-14] MEDS ORDERED: ACETAMINOPHEN 325 MG TABLET (FP) PO PRN (19:41)
[2020-10-14] MEDS ORDERED: MAG HYDROX/AL HYDROX/SIMETH 30 ML UNIT-DOSE CUP PO PRN (19:41)
[2020-10-14] MEDS ORDERED: BISMUTH SUBSALICYLATE 524 MG/30 ML UD PO PRN (19:41)
[2020-10-14] MEDS ORDERED: ONDANSETRON *ODT* 4 MG TABLET SL PRN (19:41)
[2020-10-14] MEDS ORDERED: diazePAM 5 MG TABLET PO PRN (19:44)
[2020-10-14] MEDS ORDERED: PATIENT'S OWN MEDICATION (NON-FORMULARY) (Insulin Lispro [Admelog Solostar] 100 UNIT/ML In SQ SCH (22:00)
[2020-10-14] MEDS ORDERED: MELATONIN 5 MG TABLETS PO SCH (22:00)
[2020-10-14] MEDS: diazePAM 5 MG TABLET PO SCH (23:10)
[2020-10-14] MEDS: ATORVASTATIN CA 20 MG TABLET (FP) PO SCH (23:12)
[2020-10-14] MEDS: THIAMINE HCL 100 MG TABLET (FP) PO SCH (23:12)
[2020-10-14] MEDS: INSULIN (LEVEMIR) 100 UNITS/ML UNITS SQ SCH (23:14)
[2020-10-14] MEDS: INSULIN SLIDING SCALE (NOVOLOG) 1 VIAL SQ SCH ×2 (23:15→23:28)
[2020-10-14] MEDS: METHOCARBAMOL 500 MG TABLET PO PRN (23:16)
[2020-10-15] MEDS: diazePAM 5 MG TABLET PO SCH ×4 (05:44→22:58)
[2020-10-15] MEDS: METHOCARBAMOL 500 MG TABLET PO PRN ×2 (05:46→18:19)
[2020-10-15] MEDS: ACETAMINOPHEN 325 MG TABLET (FP) PO PRN ×2 (05:51→18:17)
[2020-10-15] MEDS: INSULIN (LEVEMIR) 100 UNITS/ML UNITS SQ SCH ×2 (06:15→23:00)
[2020-10-15] MEDS: INSULIN SLIDING SCALE (NOVOLOG) 1 VIAL SQ SCH ×4 (06:16→23:01)
[2020-10-15] MEDS: PRENATAL VITAMINS W/ FOLIC ACID TABLET (FP) PO SCH (11:55)
[2020-10-15] MEDS: NIFEdipine E.R. 30 MG TABLET PO SCH (11:56)
[2020-10-15] MEDS: ASPIRIN 81 MG CHEWABLE TABLETS PO SCH (11:56)
[2020-10-15 13:46] LABS: HEMATOCRIT 44.1 % (35.4-49); HEMOGLOBIN 14.9 GM/dL (11.7-16.9); MCH 32.7 pg (25.7-33.7); MCHC 33.7 g/dl (32.0-35.9); MEAN PLT VOLUME 9.6 fl (7.5-11.1); PLATELET COUNT 241 K/MM3 (134-434); RBC 4.55 M/mm3 (4.00-5.60); RDW 13.8 % (11.9-15.9); WHITE BLOOD COUNT 6.4 K/mm3 (4.0-10.0)
[2020-10-15 13:47] LABS: ALBUMIN 3.8 g/dl (3.4-5.0)
[2020-10-15 13:52] LABS: CALCIUM 9.5 mg/dL (8.5-10.1); CREATININE 1.3 mg/dL (0.55-1.3)
[2020-10-15 13:53] LABS: BLOOD UREA NITROGEN 15.4 mg/dL (7-18)
[2020-10-15 13:54] LABS: BILIRUBIN,TOTAL 0.7 mg/dL (0.2-1); TOT PROT 7.5 g/dl (6.4-8.2)
[2020-10-15] MEDS: METHYL SALICYLATE/MENTHOL OINT 30 GM TUBE TP SCH ×2 (15:54→21:11)
[2020-10-15] MEDS: GABAPENTIN 300 MG CAPSULE PO SCH ×2 (15:55→22:59)
[2020-10-15] MEDS ORDERED: diphenhydrAMINE HCL 25 MG CAPSULE (FP) PO ONE (21:10)
[2020-10-15] MEDS ORDERED: diphenhydrAMINE HCL 50 MG CAPSULE PO PRN (22:00)
[2020-10-15] MEDS: ATORVASTATIN CA 20 MG TABLET (FP) PO SCH (22:59)
[2020-10-15] MEDS: THIAMINE HCL 100 MG TABLET (FP) PO SCH (23:00)
[2020-10-16] MEDS: GABAPENTIN 300 MG CAPSULE PO SCH ×3 (06:21→23:35)
[2020-10-16] MEDS: diazePAM 5 MG TABLET PO SCH ×3 (06:21→23:36)
[2020-10-16] MEDS: METHOCARBAMOL 500 MG TABLET PO PRN (06:23)
[2020-10-16] MEDS: INSULIN (LEVEMIR) 100 UNITS/ML UNITS SQ SCH ×2 (08:00→23:37)
[2020-10-16] MEDS: INSULIN SLIDING SCALE (NOVOLOG) 1 VIAL SQ SCH ×4 (08:01→23:36)
[2020-10-16] MEDS: ASPIRIN 81 MG CHEWABLE TABLETS PO SCH (11:10)
[2020-10-16] MEDS: NIFEdipine E.R. 30 MG TABLET PO SCH (11:10)
[2020-10-16] MEDS: PRENATAL VITAMINS W/ FOLIC ACID TABLET (FP) PO SCH (11:11)
[2020-10-16] MEDS: ACETAMINOPHEN 325 MG TABLET (FP) PO PRN (11:12)
[2020-10-16] MEDS: HYDROCORTISONE 0.5% TOPICAL CREAM 30 GM TUBE TP PRN (11:32)
[2020-10-16] MEDS: METHYL SALICYLATE/MENTHOL OINT 30 GM TUBE TP SCH ×2 (11:32→23:45)
[2020-10-16] MEDS ORDERED: LEUPROLIDE ACETATE 7.5 MG KIT IM ONE (12:00)
[2020-10-16] MEDS: ATORVASTATIN CA 20 MG TABLET (FP) PO SCH (23:35)
[2020-10-16] MEDS: THIAMINE HCL 100 MG TABLET (FP) PO SCH (23:46)
[2020-10-17] MEDS: ACETAMINOPHEN 325 MG TABLET (FP) PO PRN ×3 (05:57→22:37)
[2020-10-17] MEDS: GABAPENTIN 300 MG CAPSULE PO SCH ×3 (05:57→22:30)
[2020-10-17] MEDS: METHOCARBAMOL 500 MG TABLET PO PRN ×4 (05:57→22:59)
[2020-10-17] MEDS: diazePAM 5 MG TABLET PO SCH ×2 (05:58→17:16)
[2020-10-17] MEDS: INSULIN (LEVEMIR) 100 UNITS/ML UNITS SQ SCH ×2 (06:05→22:31)
[2020-10-17] MEDS: PRENATAL VITAMINS W/ FOLIC ACID TABLET (FP) PO SCH (10:47)
[2020-10-17] MEDS: NIFEdipine E.R. 30 MG TABLET PO SCH (10:47)
[2020-10-17] MEDS: ASPIRIN 81 MG CHEWABLE TABLETS PO SCH (10:47)
[2020-10-17] MEDS: HYDROCORTISONE 0.5% TOPICAL CREAM 30 GM TUBE TP PRN (10:47)
[2020-10-17] MEDS: METHYL SALICYLATE/MENTHOL OINT 30 GM TUBE TP SCH ×2 (10:48→22:30)
[2020-10-17] MEDS: INSULIN SLIDING SCALE (NOVOLOG) 1 VIAL SQ SCH ×3 (12:00→22:31)
[2020-10-17] MEDS: THIAMINE HCL 100 MG TABLET (FP) PO SCH (22:30)
[2020-10-17] MEDS: ATORVASTATIN CA 20 MG TABLET (FP) PO SCH (22:30)
[2020-10-17] MEDS ORDERED: diphenhydrAMINE HCL 25 MG CAPSULE (FP) PO ONE (22:59)
[2020-10-18] MEDS: ACETAMINOPHEN 325 MG TABLET (FP) PO PRN (04:29)
[2020-10-18] MEDS: METHOCARBAMOL 500 MG TABLET PO PRN ×2 (04:29→10:47)
[2020-10-18] MEDS: HYDROCORTISONE 0.5% TOPICAL CREAM 30 GM TUBE TP PRN (04:32)
[2020-10-18] MEDS: GABAPENTIN 300 MG CAPSULE PO SCH ×2 (05:15→13:27)
[2020-10-18] MEDS: INSULIN SLIDING SCALE (NOVOLOG) 1 VIAL SQ SCH ×3 (05:53→11:12)
[2020-10-18] MEDS ORDERED: diazePAM 5 MG TABLET PO ONE (06:00)
[2020-10-18] MEDS: INSULIN (LEVEMIR) 100 UNITS/ML UNITS SQ SCH (06:01)
[2020-10-18 09:51] VITALS: BP 124/76; PULSE 93; TEMP 97
[2020-10-18] MEDS: ASPIRIN 81 MG CHEWABLE TABLETS PO SCH (10:40)
[2020-10-18] MEDS: PRENATAL VITAMINS W/ FOLIC ACID TABLET (FP) PO SCH (10:40)
[2020-10-18] MEDS: NIFEdipine E.R. 30 MG TABLET PO SCH (10:40)
[2020-10-18] MEDS: METHYL SALICYLATE/MENTHOL OINT 30 GM TUBE TP SCH (10:41)
[2020-10-18] MEDS ORDERED: COLLOIDAL OATMEAL 1 BAR EACH TP PRN (10:55)
[2020-10-18] MEDS ORDERED: LIDOCAINE 5% TOPICAL PATCH TP SCH (11:00)
[2020-10-18] MEDS ORDERED: LIDOCAINE PATCH REMOVAL MC SCH (22:00)
== END 2020-10-18 14:28 | disposition other institution (70) | DRG 774 ==
LOC: YASAS 14:00 → Y3N 20:45
PROVIDERS: ADMIT Allergy & Immunology; ATTEND Allergy & Immunology
PROC: HZ2ZZZZ Detoxification Services for Substance Abuse Treatment (ICD-10-PCS; principal; 2020-10-14)
DX: F10.230 Alcohol dependence with withdrawal, uncomplicated (principal); F14.20 Cocaine dependence, uncomplicated; F16.20 Hallucinogen dependence, uncomplicated; F17.210 Nicotine dependence, cigarettes, uncomplicated; F19.282 Other psychoactive substance dependence with psychoactive substance-induced sleep disorder; F31.9 Bipolar disorder, unspecified; E78.5 Hyperlipidemia, unspecified; E10.42 Type 1 diabetes mellitus with diabetic polyneuropathy; Z79.4 Long term (current) use of insulin; I10 Essential (primary) hypertension; M17.11 Unilateral primary osteoarthritis, right knee; M54.5 Low back pain; G89.29 Other chronic pain; R56.9 Unspecified convulsions; Z85.46 Personal history of malignant neoplasm of prostate; Z88.0 Allergy status to penicillin
CPT/HCPCS: 36415; 80053; 82947; 82962; 85027; 86780; C9803; U0003

== ENCOUNTER 2020-10-18 14:43 | Inpatient (IN) | payer OTHER ==
[2020-10-18] MEDS ORDERED: MAG HYDROX/AL HYDROX/SIMETH 30 ML UNIT-DOSE CUP PO PRN (15:23)
[2020-10-18] MEDS ORDERED: P-EPHED 60MG/TRIPROLIDI 2.5MG TABLET PO PRN (15:23)
[2020-10-18] MEDS ORDERED: guaiFENesin 200 MG/10 ML 10 ML UNIT-DOSE CUPS PO PRN (15:23)
[2020-10-18] MEDS ORDERED: NICOTINE POLACRILEX 2 MG GUM BUC PRN (15:23)
[2020-10-18] MEDS ORDERED: MAGNESIUM CITRATE 300 ML BOTTLE PO PRN (15:23)
[2020-10-18] MEDS ORDERED: LOPERAMIDE HCL 2 MG CAPSULE PO PRN (15:23)
[2020-10-18] MEDS ORDERED: MENTHOL/PHENOL 1 EACH UD MM PRN (15:23)
[2020-10-18] MEDS ORDERED: MAGNESIUM HYDROX 2400MG/30ML ORAL SUSPENSION 30 ML CUP PO PRN (15:23)
[2020-10-18] MEDS ORDERED: INSULIN SLIDING SCALE (NOVOLOG) 1 VIAL SQ ONE (15:24)
[2020-10-18] MEDS ORDERED: LEUPROLIDE ACETATE 7.5 MG KIT IM SCH (17:15)
[2020-10-18] MEDS: MELATONIN 5 MG TABLETS PO SCH (22:04)
[2020-10-18] MEDS: THIAMINE HCL 100 MG TABLET (FP) PO SCH (22:05)
[2020-10-18] MEDS: INSULIN (LEVEMIR) 100 UNITS/ML UNITS SQ SCH (22:07)
[2020-10-18] MEDS: ACETAMINOPHEN 325 MG TABLET (FP) PO PRN (23:07)
[2020-10-19] MEDS: INSULIN (LEVEMIR) 100 UNITS/ML UNITS SQ SCH ×2 (07:13→22:26)
[2020-10-19] MEDS: ACETAMINOPHEN 325 MG TABLET (FP) PO PRN (08:51)
[2020-10-19] MEDS: PRENATAL VITAMINS W/ FOLIC ACID TABLET (FP) PO SCH (10:30)
[2020-10-19] MEDS: NICOTINE 7 MG/24 HOURS TOPICAL PATCH TD SCH (10:31)
[2020-10-19] MEDS: NIFEdipine E.R. 30 MG TABLET PO SCH (10:33)
[2020-10-19] MEDS: LIDOCAINE 5% TOPICAL PATCH TP SCH (11:50)
[2020-10-19] MEDS ORDERED: INSULIN (NOVOLOG) ASPART 100 UNITS/ML 10ML VIAL SQ ONE (13:30)
[2020-10-19] MEDS ORDERED: INSULIN SLIDING SCALE (NOVOLOG) 1 VIAL SQ SCH (16:30)
[2020-10-19] MEDS ORDERED: INSULIN (NOVOLOG) ASPART 100 UNITS/ML 10ML VIAL ONE ×2 (17:20→22:26)
[2020-10-19] MEDS: INSULIN SLIDING SCALE (NOVOLOG) 1 VIAL SQ SCH ×2 (17:26→22:27)
[2020-10-19] MEDS: IBUPROFEN 400 MG TABLET (FP) PO PRN (17:27)
[2020-10-19] MEDS: THIAMINE HCL 100 MG TABLET (FP) PO SCH (22:21)
[2020-10-19] MEDS: MELATONIN 5 MG TABLETS PO SCH (23:13)
[2020-10-19] MEDS: LIDOCAINE PATCH REMOVAL MC SCH (23:13)
[2020-10-20] MEDS: IBUPROFEN 400 MG TABLET (FP) PO PRN ×2 (00:47→19:47)
[2020-10-20] MEDS ORDERED: INSULIN (NOVOLOG) ASPART 100 UNITS/ML 10ML VIAL ONE ×4 (07:17→21:55)
[2020-10-20] MEDS: INSULIN (LEVEMIR) 100 UNITS/ML UNITS SQ SCH ×2 (08:29→21:59)
[2020-10-20] MEDS: INSULIN SLIDING SCALE (NOVOLOG) 1 VIAL SQ SCH ×4 (08:29→21:58)
[2020-10-20] MEDS: NIFEdipine E.R. 30 MG TABLET PO SCH (10:28)
[2020-10-20] MEDS: PRENATAL VITAMINS W/ FOLIC ACID TABLET (FP) PO SCH (10:28)
[2020-10-20] MEDS: LIDOCAINE 5% TOPICAL PATCH TP SCH (10:29)
[2020-10-20] MEDS: NICOTINE 7 MG/24 HOURS TOPICAL PATCH TD SCH (10:30)
[2020-10-20] MEDS: METHYL SALICYLATE/MENTHOL OINT 30 GM TUBE TP SCH ×2 (10:46→21:49)
[2020-10-20] MEDS ORDERED: COLLOIDAL OATMEAL 1 BAR EACH TP PRN (12:09)
[2020-10-20] MEDS: HYDROCORTISONE 1% TOPICAL CREAM 30 GM TUBE TP PRN ×2 (13:03→21:49)
[2020-10-20] MEDS: GABAPENTIN 300 MG CAPSULE PO SCH ×2 (13:53→21:47)
[2020-10-20] MEDS: MINERAL OIL/PETROLAT/WATER TOPICAL CREAM 113 GM JAR TP SCH (13:54)
[2020-10-20] MEDS: THIAMINE HCL 100 MG TABLET (FP) PO SCH (21:47)
[2020-10-20] MEDS: LIDOCAINE PATCH REMOVAL MC SCH (21:47)
[2020-10-20] MEDS: ACETAMINOPHEN 325 MG TABLET (FP) PO PRN (21:59)
[2020-10-20] MEDS: MELATONIN 5 MG TABLETS PO SCH (22:28)
[2020-10-21] MEDS: IBUPROFEN 400 MG TABLET (FP) PO PRN ×2 (03:30→10:35)
[2020-10-21] MEDS: hydrOXYzine PAMOATE 25 MG CAPSULE (FP) PO PRN ×2 (03:30→10:34)
[2020-10-21] MEDS: GABAPENTIN 300 MG CAPSULE PO SCH ×3 (06:28→21:08)
[2020-10-21] MEDS ORDERED: INSULIN (NOVOLOG) ASPART 100 UNITS/ML 10ML VIAL ONE ×3 (06:31→17:30)
[2020-10-21] MEDS: ACETAMINOPHEN 325 MG TABLET (FP) PO PRN ×3 (06:31→23:12)
[2020-10-21] MEDS: INSULIN (LEVEMIR) 100 UNITS/ML UNITS SQ SCH ×2 (06:57→21:15)
[2020-10-21] MEDS: INSULIN SLIDING SCALE (NOVOLOG) 1 VIAL SQ SCH ×4 (08:00→21:10)
[2020-10-21] MEDS: LIDOCAINE 5% TOPICAL PATCH TP SCH (10:34)
[2020-10-21] MEDS: PRENATAL VITAMINS W/ FOLIC ACID TABLET (FP) PO SCH (10:34)
[2020-10-21] MEDS: METHYL SALICYLATE/MENTHOL OINT 30 GM TUBE TP SCH ×2 (10:34→21:18)
[2020-10-21] MEDS: MINERAL OIL/PETROLAT/WATER TOPICAL CREAM 113 GM JAR TP SCH (10:34)
[2020-10-21] MEDS: NICOTINE 7 MG/24 HOURS TOPICAL PATCH TD SCH (10:35)
[2020-10-21] MEDS: HYDROCORTISONE 1% TOPICAL CREAM 30 GM TUBE TP PRN ×2 (10:35→21:18)
[2020-10-21] MEDS: NIFEdipine E.R. 30 MG TABLET PO SCH (10:35)
[2020-10-21] MEDS: METHOCARBAMOL 500 MG TABLET PO PRN ×2 (10:37→17:24)
[2020-10-21] MEDS ORDERED: INSULIN (NOVOLOG) ASPART 100 UNITS/ML 10ML VIAL SQ ONE (11:30)
[2020-10-21] MEDS: THIAMINE HCL 100 MG TABLET (FP) PO SCH (21:08)
[2020-10-21] MEDS: diphenhydrAMINE HCL 25 MG CAPSULE (FP) PO SCH (21:08)
[2020-10-21] MEDS: LIDOCAINE PATCH REMOVAL MC SCH (21:18)
[2020-10-22] MEDS: METHOCARBAMOL 500 MG TABLET PO PRN ×3 (01:20→22:03)
[2020-10-22] MEDS: ACETAMINOPHEN 325 MG TABLET (FP) PO PRN ×3 (01:20→23:49)
[2020-10-22] MEDS: GABAPENTIN 300 MG CAPSULE PO SCH ×3 (07:04→22:03)
[2020-10-22] MEDS: INSULIN (LEVEMIR) 100 UNITS/ML UNITS SQ SCH ×2 (07:04→22:00)
[2020-10-22] MEDS: INSULIN SLIDING SCALE (NOVOLOG) 1 VIAL SQ SCH ×4 (07:11→22:01)
[2020-10-22] MEDS ORDERED: INSULIN (NOVOLOG) ASPART 100 UNITS/ML 10ML VIAL ONE ×3 (07:19→22:18)
[2020-10-22] MEDS: NICOTINE 7 MG/24 HOURS TOPICAL PATCH TD SCH (10:30)
[2020-10-22] MEDS: PRENATAL VITAMINS W/ FOLIC ACID TABLET (FP) PO SCH (10:30)
[2020-10-22] MEDS: MINERAL OIL/PETROLAT/WATER TOPICAL CREAM 113 GM JAR TP SCH (10:31)
[2020-10-22] MEDS: METHYL SALICYLATE/MENTHOL OINT 30 GM TUBE TP SCH ×2 (10:31→22:04)
[2020-10-22] MEDS: LIDOCAINE 5% TOPICAL PATCH TP SCH (10:31)
[2020-10-22] MEDS: HYDROCORTISONE 1% TOPICAL CREAM 30 GM TUBE TP PRN ×2 (10:32→22:20)
[2020-10-22] MEDS: NIFEdipine E.R. 30 MG TABLET PO SCH (10:32)
[2020-10-22] MEDS: IBUPROFEN 400 MG TABLET (FP) PO PRN (10:34)
[2020-10-22] MEDS: diphenhydrAMINE HCL 25 MG CAPSULE (FP) PO SCH (22:03)
[2020-10-22] MEDS: THIAMINE HCL 100 MG TABLET (FP) PO SCH (22:03)
[2020-10-22] MEDS: LIDOCAINE PATCH REMOVAL MC SCH (22:04)
[2020-10-23] MEDS: GABAPENTIN 300 MG CAPSULE PO SCH ×2 (06:18→13:44)
[2020-10-23] MEDS: IBUPROFEN 400 MG TABLET (FP) PO PRN ×2 (06:19→13:44)
[2020-10-23] MEDS: METHOCARBAMOL 500 MG TABLET PO PRN ×2 (06:20→13:44)
[2020-10-23] MEDS: INSULIN (LEVEMIR) 100 UNITS/ML UNITS SQ SCH (06:22)
[2020-10-23] MEDS ORDERED: PT OWN MED DRAWER 7, Y5N ONE ×2 (06:26→14:50)
[2020-10-23] MEDS: INSULIN SLIDING SCALE (NOVOLOG) 1 VIAL SQ SCH ×2 (07:13→11:52)
[2020-10-23 07:14] VITALS: TEMP 98
[2020-10-23] MEDS ORDERED: INSULIN (NOVOLOG) ASPART 100 UNITS/ML 10ML VIAL ONE ×2 (07:15→11:52)
[2020-10-23] MEDS: PRENATAL VITAMINS W/ FOLIC ACID TABLET (FP) PO SCH (10:11)
[2020-10-23] MEDS: NICOTINE 7 MG/24 HOURS TOPICAL PATCH TD SCH (10:11)
[2020-10-23] MEDS: LIDOCAINE 5% TOPICAL PATCH TP SCH (10:11)
[2020-10-23] MEDS: METHYL SALICYLATE/MENTHOL OINT 30 GM TUBE TP SCH (10:12)
[2020-10-23] MEDS: MINERAL OIL/PETROLAT/WATER TOPICAL CREAM 113 GM JAR TP SCH (10:12)
[2020-10-23] MEDS: NIFEdipine E.R. 30 MG TABLET PO SCH (10:13)
[2020-10-23] MEDS: HYDROCORTISONE 1% TOPICAL CREAM 30 GM TUBE TP PRN (10:13)
[2020-10-23] MEDS: ACETAMINOPHEN 325 MG TABLET (FP) PO PRN (10:14)
[2020-10-23 10:31] VITALS: BP 121/72; PULSE 99
== END 2020-10-23 15:00 | disposition home or self-care (01) | DRG 774 ==
LOC: YASAS 14:43 → Y5N 14:44
PROVIDERS: ADMIT Allergy & Immunology; ATTEND Allergy & Immunology
PROC: HZ2ZZZZ Detoxification Services for Substance Abuse Treatment (ICD-10-PCS; principal; 2020-10-18)
DX: F10.20 Alcohol dependence, uncomplicated (principal); F14.20 Cocaine dependence, uncomplicated; F16.20 Hallucinogen dependence, uncomplicated; F17.210 Nicotine dependence, cigarettes, uncomplicated; F31.9 Bipolar disorder, unspecified; G62.9 Polyneuropathy, unspecified; E11.42 Type 2 diabetes mellitus with diabetic polyneuropathy; E11.65 Type 2 diabetes mellitus with hyperglycemia; Z79.4 Long term (current) use of insulin; E78.5 Hyperlipidemia, unspecified; I10 Essential (primary) hypertension; M17.11 Unilateral primary osteoarthritis, right knee; M54.5 Low back pain; M25.512 Pain in left shoulder; G89.29 Other chronic pain; Z86.73 Personal history of transient ischemic attack (TIA), and cerebral infarction without residual deficits; Z85.46 Personal history of malignant neoplasm of prostate; Z99.89 Dependence on other enabling machines and devices
CPT/HCPCS: 82962; C9803; U0003

== ENCOUNTER 2021-02-12 08:14 | Inpatient (IN) | payer OTHER ==
[2021-02-12 08:46] VITALS: BMI 30.2
[2021-02-12] MEDS ORDERED: ONDANSETRON *ODT* 4 MG TABLET SL PRN (10:34)
[2021-02-12] MEDS ORDERED: MAGNESIUM HYDROX 2400MG/30ML ORAL SUSPENSION 30 ML CUP PO PRN (10:34)
[2021-02-12] MEDS ORDERED: MENTHOL/PHENOL 1 EACH UD MM PRN (10:34)
[2021-02-12] MEDS ORDERED: MAGNESIUM CITRATE 300 ML BOTTLE PO PRN (10:34)
[2021-02-12] MEDS ORDERED: BISMUTH SUBSALICYLATE 524 MG/30 ML PO PRN (10:34)
[2021-02-12] MEDS ORDERED: NICOTINE POLACRILEX 2 MG GUM BUC PRN (10:34)
[2021-02-12] MEDS ORDERED: diazePAM 5 MG TABLET PO PRN (10:34)
[2021-02-12] MEDS ORDERED: MAG HYDROX/AL HYDROX/SIMETH 30 ML UNIT-DOSE CUP PO PRN (10:34)
[2021-02-12] MEDS ORDERED: IBUPROFEN 400 MG TABLET (FP) PO PRN (10:34)
[2021-02-12] MEDS ORDERED: ACETAMINOPHEN 325 MG TABLET (FP) PO PRN (10:34)
[2021-02-12 12:26] LABS: CHLORIDE 103 mmol/L (98-107); HEMATOCRIT 45.4 % (35.4-49); HEMOGLOBIN 14.9 GM/dL (11.7-16.9); MCH 31.3 pg (25.7-33.7); MCHC 32.9 g/dl (32.0-35.9); MEAN CELL VOLUME 95.2 fl (80-96); MEAN PLT VOLUME 9.1 fl (7.5-11.1); PLATELET COUNT 210 10^3/uL (134-434); RBC 4.76 M/mm3 (4.00-5.60); SODIUM 138 mmol/L (136-145); WHITE BLOOD COUNT 8.1 K/mm3 (4.0-10.0)
[2021-02-12 12:29] LABS: CALCIUM 9.5 mg/dL (8.5-10.1)
[2021-02-12 12:30] LABS: ANION GAP 7 MMOL/L (8-16); BLOOD UREA NITROGEN 16.6 mg/dL (7-18); CO2 28 mmol/L (21-32)
[2021-02-12] MEDS ORDERED: INSULIN (NOVOLOG) ASPART 100 UNITS/ML 10ML VIAL ONE (12:30)
[2021-02-12 12:33] LABS: CREATININE 1.5 mg/dL (0.55-1.3); SGOT/AST 38 U/L (15-37); SGPT/ALT 48 U/L (13-61)
[2021-02-12 12:35] LABS: BILIRUBIN,TOTAL 1.5 mg/dL (0.2-1); TOT PROT 7.8 g/dl (6.4-8.2)
[2021-02-12 12:36] LABS: ALK PHOS 94 U/L (45-117)
[2021-02-12 12:39] LABS: GLUCOSE,RANDOM 478 mg/dL (74-106)
[2021-02-12] MEDS ORDERED: INSULIN (NOVOLOG) ASPART 100 UNITS/ML 10ML VIAL SQ ONE (12:45)
[2021-02-12] MEDS: NIFEdipine E.R. 30 MG TABLET PO SCH (14:21)
[2021-02-12] MEDS ORDERED: COLLOIDAL OATMEAL 1 BAR EACH TP PRN (14:21)
[2021-02-12] MEDS: GABAPENTIN 300 MG CAPSULE PO SCH ×2 (14:21→22:39)
[2021-02-12] MEDS: hydrOXYzine PAMOATE 25 MG CAPSULE (FP) PO SCH ×3 (14:21→22:44)
[2021-02-12] MEDS: METHOCARBAMOL 500 MG TABLET PO PRN (14:21)
[2021-02-12] MEDS: PRENATAL VITAMINS W/ FOLIC ACID TABLET (FP) PO SCH (14:24)
[2021-02-12] MEDS: diazePAM 5 MG TABLET PO SCH ×3 (14:24→22:45)
[2021-02-12] MEDS ORDERED: INSULIN SLIDING SCALE (NOVOLOG) 1 VIAL SQ SCH (16:30)
[2021-02-12] MEDS: INSULIN SLIDING SCALE (NOVOLOG) 1 VIAL SQ SCH (18:36)
[2021-02-12] MEDS: INSULIN (NOVOLOG) ASPART 100 UNITS/ML 10ML VIAL SQ SCH (18:36)
[2021-02-12] MEDS: VITAMINS A AND D TOPICAL OINTMENT 60 GM TUBE TP SCH (18:37)
[2021-02-12] MEDS ORDERED: MELATONIN 5 MG TABLETS PO SCH (22:00)
[2021-02-12] MEDS: THIAMINE HCL 100 MG TABLET (FP) PO SCH (22:39)
[2021-02-12] MEDS: diphenhydrAMINE HCL 25 MG CAPSULE (FP) PO PRN (22:39)
[2021-02-12] MEDS: INSULIN (LEVEMIR) 100 UNITS/ML UNITS SQ SCH (22:45)
[2021-02-12] MEDS ORDERED: INSULIN SLIDING SCALE (NOVOLOG) 1 VIAL SQ ONE (23:24)
[2021-02-13] MEDS: VITAMINS A AND D TOPICAL OINTMENT 60 GM TUBE TP SCH ×4 (02:28→19:05)
[2021-02-13] MEDS: hydrOXYzine PAMOATE 25 MG CAPSULE (FP) PO SCH ×5 (06:56→22:28)
[2021-02-13] MEDS: diazePAM 5 MG TABLET PO SCH ×4 (06:56→22:28)
[2021-02-13] MEDS: GABAPENTIN 300 MG CAPSULE PO SCH ×3 (06:57→22:28)
[2021-02-13] MEDS: METHOCARBAMOL 500 MG TABLET PO PRN (06:57)
[2021-02-13] MEDS: ACETAMINOPHEN 325 MG TABLET (FP) PO PRN (06:58)
[2021-02-13] MEDS: INSULIN (NOVOLOG) ASPART 100 UNITS/ML 10ML VIAL SQ SCH ×3 (07:06→18:57)
[2021-02-13] MEDS: INSULIN SLIDING SCALE (NOVOLOG) 1 VIAL SQ SCH ×3 (07:07→18:55)
[2021-02-13] MEDS ORDERED: LEUPROLIDE ACETATE 7.5 MG KIT IM ONE (10:00)
[2021-02-13 11:03] LABS: HIV INTERPRETATION NEGATIVE (NEGATIVE)
[2021-02-13] MEDS: INSULIN (LEVEMIR) 100 UNITS/ML UNITS SQ SCH ×2 (11:18→22:29)
[2021-02-13] MEDS: NICOTINE 21 MG/24 HOURS TOPICAL PATCH TD SCH (11:18)
[2021-02-13] MEDS: PRENATAL VITAMINS W/ FOLIC ACID TABLET (FP) PO SCH (11:19)
[2021-02-13] MEDS: NIFEdipine E.R. 30 MG TABLET PO SCH (11:19)
[2021-02-13] MEDS: THIAMINE HCL 100 MG TABLET (FP) PO SCH (22:28)
[2021-02-14] MEDS: GABAPENTIN 300 MG CAPSULE PO SCH ×3 (07:12→22:44)
[2021-02-14] MEDS: diazePAM 5 MG TABLET PO SCH ×3 (07:12→22:44)
[2021-02-14] MEDS: METHOCARBAMOL 500 MG TABLET PO PRN (07:13)
[2021-02-14] MEDS: ACETAMINOPHEN 325 MG TABLET (FP) PO PRN (07:13)
[2021-02-14] MEDS: INSULIN (NOVOLOG) ASPART 100 UNITS/ML 10ML VIAL SQ SCH ×3 (07:18→17:37)
[2021-02-14] MEDS: INSULIN SLIDING SCALE (NOVOLOG) 1 VIAL SQ SCH ×3 (07:21→17:38)
[2021-02-14] MEDS: VITAMINS A AND D TOPICAL OINTMENT 60 GM TUBE TP SCH ×3 (07:22→19:10)
[2021-02-14] MEDS: hydrOXYzine PAMOATE 25 MG CAPSULE (FP) PO SCH ×5 (07:22→22:49)
[2021-02-14] MEDS: NICOTINE 21 MG/24 HOURS TOPICAL PATCH TD SCH (10:58)
[2021-02-14] MEDS: PRENATAL VITAMINS W/ FOLIC ACID TABLET (FP) PO SCH (10:58)
[2021-02-14] MEDS: NIFEdipine E.R. 30 MG TABLET PO SCH (10:58)
[2021-02-14] MEDS: INSULIN (LEVEMIR) 100 UNITS/ML UNITS SQ SCH ×2 (11:53→22:50)
[2021-02-14] MEDS: THIAMINE HCL 100 MG TABLET (FP) PO SCH (22:44)
[2021-02-14] MEDS: diphenhydrAMINE HCL 25 MG CAPSULE (FP) PO PRN (22:49)
[2021-02-15] MEDS: GABAPENTIN 300 MG CAPSULE PO SCH ×3 (06:53→23:06)
[2021-02-15] MEDS: diazePAM 5 MG TABLET PO SCH ×2 (06:55→17:58)
[2021-02-15] MEDS: ACETAMINOPHEN 325 MG TABLET (FP) PO PRN ×2 (06:56→23:10)
[2021-02-15] MEDS: INSULIN (NOVOLOG) ASPART 100 UNITS/ML 10ML VIAL SQ SCH ×3 (06:57→17:58)
[2021-02-15] MEDS: INSULIN SLIDING SCALE (NOVOLOG) 1 VIAL SQ SCH ×3 (07:01→17:58)
[2021-02-15] MEDS: VITAMINS A AND D TOPICAL OINTMENT 60 GM TUBE TP SCH ×5 (07:28→23:21)
[2021-02-15] MEDS: hydrOXYzine PAMOATE 25 MG CAPSULE (FP) PO SCH ×5 (07:28→23:06)
[2021-02-15] MEDS: PRENATAL VITAMINS W/ FOLIC ACID TABLET (FP) PO SCH (10:22)
[2021-02-15] MEDS: NICOTINE 21 MG/24 HOURS TOPICAL PATCH TD SCH (10:22)
[2021-02-15] MEDS: NIFEdipine E.R. 30 MG TABLET PO SCH (10:22)
[2021-02-15] MEDS: FLUOCINONIDE 0.05% CREAM (15 GM TUBE) TP SCH ×2 (11:40→23:07)
[2021-02-15] MEDS: INSULIN (LEVEMIR) 100 UNITS/ML UNITS SQ SCH ×2 (12:01→23:20)
[2021-02-15] MEDS: METHOCARBAMOL 500 MG TABLET PO PRN (18:01)
[2021-02-15 19:45] LABS: CALCIUM 8.9 mg/dL (8.5-10.1)
[2021-02-15 19:46] LABS: BLOOD UREA NITROGEN 21.8 mg/dL (7-18)
[2021-02-15 19:49] LABS: CREATININE 1.5 mg/dL (0.55-1.3)
[2021-02-15 19:51] LABS: BILIRUBIN,TOTAL 1.2 mg/dL (0.2-1)
[2021-02-15] MEDS: THIAMINE HCL 100 MG TABLET (FP) PO SCH (23:06)
[2021-02-15] MEDS: diphenhydrAMINE HCL 25 MG CAPSULE (FP) PO PRN (23:10)
[2021-02-16] MEDS ORDERED: diazePAM 5 MG TABLET PO ONE (06:00)
[2021-02-16] MEDS: METHOCARBAMOL 500 MG TABLET PO PRN (06:27)
[2021-02-16] MEDS: hydrOXYzine PAMOATE 25 MG CAPSULE (FP) PO SCH (06:27)
[2021-02-16] MEDS: GABAPENTIN 300 MG CAPSULE PO SCH (06:27)
[2021-02-16] MEDS: VITAMINS A AND D TOPICAL OINTMENT 60 GM TUBE TP SCH ×2 (06:27→10:59)
[2021-02-16] MEDS: ACETAMINOPHEN 325 MG TABLET (FP) PO PRN (06:28)
[2021-02-16] MEDS: INSULIN SLIDING SCALE (NOVOLOG) 1 VIAL SQ SCH ×2 (06:34→11:13)
[2021-02-16] MEDS: INSULIN (NOVOLOG) ASPART 100 UNITS/ML 10ML VIAL SQ SCH ×2 (06:34→11:07)
[2021-02-16] MEDS ORDERED: hydrOXYzine PAMOATE 25 MG CAPSULE (FP) PO PRN (08:01)
[2021-02-16] MEDS: PRENATAL VITAMINS W/ FOLIC ACID TABLET (FP) PO SCH (10:59)
[2021-02-16] MEDS: FLUOCINONIDE 0.05% CREAM (15 GM TUBE) TP SCH (10:59)
[2021-02-16] MEDS: NICOTINE 21 MG/24 HOURS TOPICAL PATCH TD SCH (11:00)
[2021-02-16] MEDS: NIFEdipine E.R. 30 MG TABLET PO SCH (11:06)
[2021-02-16] MEDS: INSULIN (LEVEMIR) 100 UNITS/ML UNITS SQ SCH (11:06)
[2021-02-16 13:40] VITALS: BP 120/67; PULSE 92; TEMP 97.1
== END 2021-02-16 12:53 | disposition other institution (70) | DRG 774 ==
LOC: YASAS 08:14 → Y3N 11:37
PROVIDERS: ADMIT Allergy & Immunology; ATTEND Allergy & Immunology
PROC: HZ2ZZZZ Detoxification Services for Substance Abuse Treatment (ICD-10-PCS; principal; 2021-02-12)
DX: F10.230 Alcohol dependence with withdrawal, uncomplicated (principal); F14.20 Cocaine dependence, uncomplicated; F16.10 Hallucinogen abuse, uncomplicated; F17.210 Nicotine dependence, cigarettes, uncomplicated; F19.24 Other psychoactive substance dependence with psychoactive substance-induced mood disorder; F41.9 Anxiety disorder, unspecified; F31.81 Bipolar II disorder; I10 Essential (primary) hypertension; E11.49 Type 2 diabetes mellitus with other diabetic neurological complication; E78.5 Hyperlipidemia, unspecified; H54.7 Unspecified visual loss; N17.9 Acute kidney failure, unspecified; E80.7 Disorder of bilirubin metabolism, unspecified; G47.00 Insomnia, unspecified; Z85.46 Personal history of malignant neoplasm of prostate; Z88.0 Allergy status to penicillin; Z79.4 Long term (current) use of insulin; Z91.018 Allergy to other foods
CPT/HCPCS: 36415; 80048; 80053; 82247; 82962; 85027; 86780; 87389; C9803; U0003; U0005

== ENCOUNTER 2021-02-16 13:02 | Inpatient (IN) | payer OTHER ==
[2021-02-16] MEDS ORDERED: NICOTINE POLACRILEX 2 MG GUM BUC PRN (13:24)
[2021-02-16] MEDS ORDERED: LOPERAMIDE HCL 2 MG CAPSULE PO PRN (13:24)
[2021-02-16] MEDS ORDERED: hydrOXYzine PAMOATE 25 MG CAPSULE (FP) PO PRN (13:24)
[2021-02-16] MEDS ORDERED: MAGNESIUM HYDROX 2400MG/30ML ORAL SUSPENSION 30 ML CUP PO PRN (13:24)
[2021-02-16] MEDS ORDERED: MAG HYDROX/AL HYDROX/SIMETH 30 ML UNIT-DOSE CUP PO PRN (13:24)
[2021-02-16] MEDS ORDERED: MAGNESIUM CITRATE 300 ML BOTTLE PO PRN (13:24)
[2021-02-16] MEDS ORDERED: MENTHOL/PHENOL 1 EACH UD MM PRN (13:24)
[2021-02-16] MEDS ORDERED: P-EPHED 60MG/TRIPROLIDI 2.5MG TABLET PO PRN (13:24)
[2021-02-16] MEDS ORDERED: guaiFENesin 200 MG/10 ML 10 ML UNIT-DOSE CUPS PO PRN (13:24)
[2021-02-16] MEDS ORDERED: INSULIN (LEVEMIR) 100 UNITS/ML UNITS SQ SCH (16:30)
[2021-02-16] MEDS: INSULIN SLIDING SCALE (NOVOLOG) 1 VIAL SQ SCH ×2 (17:06→22:57)
[2021-02-16] MEDS: INSULIN (NOVOLOG) ASPART 100 UNITS/ML 10ML VIAL SQ SCH (17:08)
[2021-02-16] MEDS: VITAMINS A AND D TOPICAL OINTMENT 60 GM TUBE TP SCH ×2 (18:58→23:18)
[2021-02-16] MEDS ORDERED: INSULIN (NOVOLOG) ASPART 100 UNITS/ML 10ML VIAL ONE (20:14)
[2021-02-16] MEDS ORDERED: PT OWN MED DRAWER 7, Y5N ONE (20:16)
[2021-02-16] MEDS ORDERED: MASKS NR ONE (22:49)
[2021-02-16] MEDS: GABAPENTIN 300 MG CAPSULE PO SCH (22:52)
[2021-02-16] MEDS: THIAMINE HCL 100 MG TABLET (FP) PO SCH (22:53)
[2021-02-16] MEDS: FLUOCINONIDE 0.05% CREAM (60 GM TUBE) TP SCH (22:53)
[2021-02-16] MEDS: INSULIN (LEVEMIR) 100 UNITS/ML UNITS SQ SCH (22:55)
[2021-02-16] MEDS: MELATONIN 5 MG TABLETS PO SCH (23:14)
[2021-02-16] MEDS: IBUPROFEN 400 MG TABLET (FP) PO PRN (23:16)
[2021-02-17] MEDS: GABAPENTIN 300 MG CAPSULE PO SCH ×3 (06:54→22:04)
[2021-02-17] MEDS: INSULIN (NOVOLOG) ASPART 100 UNITS/ML 10ML VIAL SQ SCH ×3 (06:58→16:48)
[2021-02-17] MEDS: INSULIN SLIDING SCALE (NOVOLOG) 1 VIAL SQ SCH ×4 (06:58→22:06)
[2021-02-17] MEDS: ACETAMINOPHEN 325 MG TABLET (FP) PO PRN (07:00)
[2021-02-17] MEDS ORDERED: INSULIN (NOVOLOG) ASPART 100 UNITS/ML 10ML VIAL ONE ×2 (07:04→18:25)
[2021-02-17] MEDS ORDERED: PT OWN MED DRAWER 7, Y5N ONE ×4 (07:04→23:59)
[2021-02-17] MEDS: VITAMINS A AND D TOPICAL OINTMENT 60 GM TUBE TP SCH ×4 (07:05→23:55)
[2021-02-17] MEDS ORDERED: NICOTINE 7 MG/24 HOURS TOPICAL PATCH TD SCH (10:00)
[2021-02-17] MEDS: PRENATAL VITAMINS W/ FOLIC ACID TABLET (FP) PO SCH (10:07)
[2021-02-17] MEDS: FLUOCINONIDE 0.05% CREAM (60 GM TUBE) TP SCH ×2 (10:08→22:04)
[2021-02-17] MEDS: NICOTINE 21 MG/24 HOURS TOPICAL PATCH TD SCH (10:09)
[2021-02-17] MEDS: NIFEdipine E.R. 30 MG TABLET PO SCH (10:10)
[2021-02-17] MEDS: IBUPROFEN 400 MG TABLET (FP) PO PRN (10:12)
[2021-02-17] MEDS: INSULIN (LEVEMIR) 100 UNITS/ML UNITS SQ SCH ×2 (11:08→22:06)
[2021-02-17] MEDS: METHOCARBAMOL 500 MG TABLET PO PRN ×2 (13:13→22:03)
[2021-02-17] MEDS: THIAMINE HCL 100 MG TABLET (FP) PO SCH (22:04)
[2021-02-17] MEDS: MELATONIN 5 MG TABLETS PO SCH (22:12)
[2021-02-18] MEDS: GABAPENTIN 300 MG CAPSULE PO SCH ×3 (06:22→21:16)
[2021-02-18] MEDS: METHOCARBAMOL 500 MG TABLET PO PRN ×3 (06:22→21:16)
[2021-02-18] MEDS: VITAMINS A AND D TOPICAL OINTMENT 60 GM TUBE TP SCH ×4 (06:25→23:03)
[2021-02-18] MEDS: INSULIN SLIDING SCALE (NOVOLOG) 1 VIAL SQ SCH ×4 (07:27→21:20)
[2021-02-18] MEDS: INSULIN (NOVOLOG) ASPART 100 UNITS/ML 10ML VIAL SQ SCH ×3 (07:27→17:02)
[2021-02-18] MEDS: FLUOCINONIDE 0.05% CREAM (60 GM TUBE) TP SCH ×2 (09:46→21:22)
[2021-02-18] MEDS: PRENATAL VITAMINS W/ FOLIC ACID TABLET (FP) PO SCH (09:46)
[2021-02-18] MEDS: NICOTINE 21 MG/24 HOURS TOPICAL PATCH TD SCH (09:47)
[2021-02-18] MEDS: IBUPROFEN 400 MG TABLET (FP) PO PRN ×2 (09:50→18:54)
[2021-02-18] MEDS: INSULIN (LEVEMIR) 100 UNITS/ML UNITS SQ SCH ×2 (11:09→21:20)
[2021-02-18] MEDS ORDERED: INSULIN (NOVOLOG) ASPART 100 UNITS/ML 10ML VIAL ONE (11:54)
[2021-02-18] MEDS: NIFEdipine E.R. 30 MG TABLET PO SCH (12:24)
[2021-02-18] MEDS ORDERED: PT OWN MED DRAWER 7, Y5N ONE (18:53)
[2021-02-18] MEDS: THIAMINE HCL 100 MG TABLET (FP) PO SCH (21:16)
[2021-02-18] MEDS: MELATONIN 5 MG TABLETS PO SCH (21:24)
[2021-02-19] MEDS: METHOCARBAMOL 500 MG TABLET PO PRN ×2 (06:36→17:50)
[2021-02-19] MEDS: VITAMINS A AND D TOPICAL OINTMENT 60 GM TUBE TP SCH ×4 (06:38→23:07)
[2021-02-19] MEDS: GABAPENTIN 300 MG CAPSULE PO SCH ×3 (06:38→22:04)
[2021-02-19] MEDS: INSULIN (NOVOLOG) ASPART 100 UNITS/ML 10ML VIAL SQ SCH ×5 (07:29→17:52)
[2021-02-19] MEDS: INSULIN SLIDING SCALE (NOVOLOG) 1 VIAL SQ SCH ×4 (07:29→22:07)
[2021-02-19] MEDS: PRENATAL VITAMINS W/ FOLIC ACID TABLET (FP) PO SCH (09:53)
[2021-02-19] MEDS: NICOTINE 21 MG/24 HOURS TOPICAL PATCH TD SCH (09:53)
[2021-02-19] MEDS: NIFEdipine E.R. 30 MG TABLET PO SCH (09:54)
[2021-02-19] MEDS: IBUPROFEN 400 MG TABLET (FP) PO PRN ×2 (09:54→17:50)
[2021-02-19] MEDS: FLUOCINONIDE 0.05% CREAM (60 GM TUBE) TP SCH ×2 (09:55→22:06)
[2021-02-19] MEDS: INSULIN (LEVEMIR) 100 UNITS/ML UNITS SQ SCH ×2 (11:52→22:06)
[2021-02-19] MEDS ORDERED: INSULIN (NOVOLOG) ASPART 100 UNITS/ML 10ML VIAL SQ SCH ×2 (17:16→17:22)
[2021-02-19] MEDS: THIAMINE HCL 100 MG TABLET (FP) PO SCH (22:04)
[2021-02-19] MEDS: MELATONIN 5 MG TABLETS PO SCH (22:06)
[2021-02-20] MEDS: IBUPROFEN 400 MG TABLET (FP) PO PRN (03:45)
[2021-02-20] MEDS: METHOCARBAMOL 500 MG TABLET PO PRN ×3 (03:45→22:10)
[2021-02-20] MEDS: GABAPENTIN 300 MG CAPSULE PO SCH ×3 (06:29→22:08)
[2021-02-20] MEDS: INSULIN SLIDING SCALE (NOVOLOG) 1 VIAL SQ SCH ×4 (06:31→22:14)
[2021-02-20] MEDS: VITAMINS A AND D TOPICAL OINTMENT 60 GM TUBE TP SCH ×3 (06:32→19:17)
[2021-02-20] MEDS: INSULIN (NOVOLOG) ASPART 100 UNITS/ML 10ML VIAL SQ SCH ×3 (06:32→16:48)
[2021-02-20] MEDS ORDERED: INSULIN (NOVOLOG) ASPART 100 UNITS/ML 10ML VIAL ONE ×2 (07:10→16:42)
[2021-02-20] MEDS ORDERED: PT OWN MED DRAWER 7, Y5N ONE ×2 (09:16→19:18)
[2021-02-20] MEDS: NICOTINE 21 MG/24 HOURS TOPICAL PATCH TD SCH (09:43)
[2021-02-20] MEDS: PRENATAL VITAMINS W/ FOLIC ACID TABLET (FP) PO SCH (09:43)
[2021-02-20] MEDS: NIFEdipine E.R. 30 MG TABLET PO SCH (09:44)
[2021-02-20] MEDS: FLUOCINONIDE 0.05% CREAM (60 GM TUBE) TP SCH ×2 (09:44→22:15)
[2021-02-20] MEDS: INSULIN (LEVEMIR) 100 UNITS/ML UNITS SQ SCH ×2 (11:26→22:14)
[2021-02-20] MEDS: COLLOIDAL OATMEAL 1 BAR EACH TP PRN (11:40)
[2021-02-20] MEDS: THIAMINE HCL 100 MG TABLET (FP) PO SCH (22:08)
[2021-02-20] MEDS: MELATONIN 5 MG TABLETS PO SCH (22:08)
[2021-02-21] MEDS: IBUPROFEN 400 MG TABLET (FP) PO PRN ×3 (00:47→11:58)
[2021-02-21] MEDS: VITAMINS A AND D TOPICAL OINTMENT 60 GM TUBE TP SCH ×5 (01:02→19:17)
[2021-02-21] MEDS: GABAPENTIN 300 MG CAPSULE PO SCH ×3 (06:48→22:06)
[2021-02-21] MEDS: INSULIN (NOVOLOG) ASPART 100 UNITS/ML 10ML VIAL SQ SCH ×3 (06:48→19:16)
[2021-02-21] MEDS: INSULIN SLIDING SCALE (NOVOLOG) 1 VIAL SQ SCH ×4 (06:48→22:14)
[2021-02-21] MEDS ORDERED: INSULIN (NOVOLOG) ASPART 100 UNITS/ML 10ML VIAL ONE (06:54)
[2021-02-21] MEDS: INSULIN (LEVEMIR) 100 UNITS/ML UNITS SQ SCH ×2 (09:40→22:07)
[2021-02-21] MEDS: NICOTINE 21 MG/24 HOURS TOPICAL PATCH TD SCH (09:40)
[2021-02-21] MEDS: NIFEdipine E.R. 30 MG TABLET PO SCH (09:40)
[2021-02-21] MEDS: PRENATAL VITAMINS W/ FOLIC ACID TABLET (FP) PO SCH (09:40)
[2021-02-21] MEDS: FLUOCINONIDE 0.05% CREAM (60 GM TUBE) TP SCH ×2 (09:42→22:04)
[2021-02-21] MEDS: METHOCARBAMOL 500 MG TABLET PO PRN ×2 (09:43→22:17)
[2021-02-21] MEDS: THIAMINE HCL 100 MG TABLET (FP) PO SCH (22:06)
[2021-02-21] MEDS: MELATONIN 5 MG TABLETS PO SCH (22:06)
[2021-02-21] MEDS: ACETAMINOPHEN 325 MG TABLET (FP) PO PRN (22:17)
[2021-02-22] MEDS: VITAMINS A AND D TOPICAL OINTMENT 60 GM TUBE TP SCH ×5 (01:10→23:41)
[2021-02-22] MEDS: IBUPROFEN 400 MG TABLET (FP) PO PRN ×3 (01:43→23:30)
[2021-02-22] MEDS: GABAPENTIN 300 MG CAPSULE PO SCH ×3 (07:06→23:28)
[2021-02-22] MEDS: INSULIN (NOVOLOG) ASPART 100 UNITS/ML 10ML VIAL SQ SCH ×3 (07:11→17:18)
[2021-02-22] MEDS: INSULIN SLIDING SCALE (NOVOLOG) 1 VIAL SQ SCH ×4 (07:11→23:36)
[2021-02-22] MEDS: METHOCARBAMOL 500 MG TABLET PO PRN (07:12)
[2021-02-22] MEDS ORDERED: INSULIN (NOVOLOG) ASPART 100 UNITS/ML 10ML VIAL ONE (07:15)
[2021-02-22] MEDS: FLUOCINONIDE 0.05% CREAM (60 GM TUBE) TP SCH ×2 (09:38→23:29)
[2021-02-22] MEDS: PRENATAL VITAMINS W/ FOLIC ACID TABLET (FP) PO SCH (09:38)
[2021-02-22] MEDS: NICOTINE 21 MG/24 HOURS TOPICAL PATCH TD SCH (09:38)
[2021-02-22] MEDS ORDERED: PT OWN MED DRAWER 7, Y5N ONE (09:39)
[2021-02-22] MEDS: NIFEdipine E.R. 30 MG TABLET PO SCH (09:42)
[2021-02-22] MEDS ORDERED: INSULIN (LEVEMIR) 100 UNITS/ML UNITS SQ ONE (11:12)
[2021-02-22] MEDS: INSULIN (LEVEMIR) 100 UNITS/ML UNITS SQ SCH ×2 (11:14→23:29)
[2021-02-22] MEDS: COLLOIDAL OATMEAL 1 BAR EACH TP PRN (15:29)
[2021-02-22] MEDS: THIAMINE HCL 100 MG TABLET (FP) PO SCH (23:28)
[2021-02-22] MEDS: MELATONIN 5 MG TABLETS PO SCH (23:29)
[2021-02-23] MEDS: GABAPENTIN 300 MG CAPSULE PO SCH ×3 (06:47→22:26)
[2021-02-23] MEDS: IBUPROFEN 400 MG TABLET (FP) PO PRN ×2 (06:51→15:37)
[2021-02-23] MEDS: METHOCARBAMOL 500 MG TABLET PO PRN ×2 (06:51→22:30)
[2021-02-23] MEDS: INSULIN SLIDING SCALE (NOVOLOG) 1 VIAL SQ SCH ×4 (06:55→22:28)
[2021-02-23] MEDS: VITAMINS A AND D TOPICAL OINTMENT 60 GM TUBE TP SCH ×4 (06:56→23:16)
[2021-02-23] MEDS: INSULIN (NOVOLOG) ASPART 100 UNITS/ML 10ML VIAL SQ SCH ×3 (08:31→17:17)
[2021-02-23] MEDS: NIFEdipine E.R. 30 MG TABLET PO SCH (09:37)
[2021-02-23] MEDS: PRENATAL VITAMINS W/ FOLIC ACID TABLET (FP) PO SCH (09:37)
[2021-02-23] MEDS: FLUOCINONIDE 0.05% CREAM (60 GM TUBE) TP SCH ×2 (09:38→22:37)
[2021-02-23] MEDS: NICOTINE 21 MG/24 HOURS TOPICAL PATCH TD SCH (09:38)
[2021-02-23] MEDS: INSULIN (LEVEMIR) 100 UNITS/ML UNITS SQ SCH ×2 (11:15→22:27)
[2021-02-23] MEDS: MINERAL OIL/PETROLAT/WATER TOPICAL CREAM 113 GM JAR TP SCH (13:28)
[2021-02-23] MEDS: TOLNAFTATE 1% POWDER 45 GM POW TP SCH (21:00)
[2021-02-23] MEDS: THIAMINE HCL 100 MG TABLET (FP) PO SCH (22:27)
[2021-02-23] MEDS ORDERED: diphenhydrAMINE HCL 25 MG CAPSULE (FP) PO ONE (22:30)
[2021-02-23] MEDS: diphenhydrAMINE HCL 50 MG CAPSULE PO PRN (22:30)
[2021-02-24] MEDS: GABAPENTIN 300 MG CAPSULE PO SCH ×3 (07:06→22:51)
[2021-02-24] MEDS: VITAMINS A AND D TOPICAL OINTMENT 60 GM TUBE TP SCH ×3 (07:08→17:43)
[2021-02-24] MEDS: METHOCARBAMOL 500 MG TABLET PO PRN ×2 (07:08→22:54)
[2021-02-24] MEDS ORDERED: INSULIN (NOVOLOG) ASPART 100 UNITS/ML 10ML VIAL ONE (07:11)
[2021-02-24] MEDS: INSULIN SLIDING SCALE (NOVOLOG) 1 VIAL SQ SCH ×4 (08:13→23:04)
[2021-02-24] MEDS: INSULIN (NOVOLOG) ASPART 100 UNITS/ML 10ML VIAL SQ SCH ×3 (08:13→16:46)
[2021-02-24] MEDS: NIFEdipine E.R. 30 MG TABLET PO SCH (09:49)
[2021-02-24] MEDS: PRENATAL VITAMINS W/ FOLIC ACID TABLET (FP) PO SCH (09:49)
[2021-02-24] MEDS: TOLNAFTATE 1% POWDER 45 GM POW TP SCH ×2 (09:50→22:55)
[2021-02-24] MEDS: IBUPROFEN 400 MG TABLET (FP) PO PRN ×2 (09:51→22:55)
[2021-02-24] MEDS: NICOTINE 21 MG/24 HOURS TOPICAL PATCH TD SCH (09:52)
[2021-02-24] MEDS: FLUOCINONIDE 0.05% CREAM (60 GM TUBE) TP SCH ×2 (09:53→23:04)
[2021-02-24] MEDS: MINERAL OIL/PETROLAT/WATER TOPICAL CREAM 113 GM JAR TP SCH (09:54)
[2021-02-24] MEDS: INSULIN (LEVEMIR) 100 UNITS/ML UNITS SQ SCH ×2 (10:56→22:48)
[2021-02-24] MEDS: THIAMINE HCL 100 MG TABLET (FP) PO SCH (22:51)
[2021-02-24] MEDS ORDERED: diphenhydrAMINE HCL 25 MG CAPSULE (FP) PO ONE (22:54)
[2021-02-25] MEDS: VITAMINS A AND D TOPICAL OINTMENT 60 GM TUBE TP SCH ×4 (00:54→18:02)
[2021-02-25] MEDS: GABAPENTIN 300 MG CAPSULE PO SCH ×3 (06:33→22:11)
[2021-02-25] MEDS: METHOCARBAMOL 500 MG TABLET PO PRN ×3 (06:37→22:10)
[2021-02-25] MEDS: IBUPROFEN 400 MG TABLET (FP) PO PRN ×2 (06:37→14:25)
[2021-02-25] MEDS ORDERED: INSULIN (NOVOLOG) ASPART 100 UNITS/ML 10ML VIAL ONE (07:30)
[2021-02-25] MEDS: INSULIN SLIDING SCALE (NOVOLOG) 1 VIAL SQ SCH ×4 (07:59→22:06)
[2021-02-25] MEDS: INSULIN (NOVOLOG) ASPART 100 UNITS/ML 10ML VIAL SQ SCH ×3 (08:05→17:16)
[2021-02-25] MEDS: NICOTINE 21 MG/24 HOURS TOPICAL PATCH TD SCH (09:53)
[2021-02-25] MEDS: PRENATAL VITAMINS W/ FOLIC ACID TABLET (FP) PO SCH (09:53)
[2021-02-25] MEDS: NIFEdipine E.R. 30 MG TABLET PO SCH (09:53)
[2021-02-25] MEDS: TOLNAFTATE 1% POWDER 45 GM POW TP SCH ×2 (09:54→22:11)
[2021-02-25] MEDS: FLUOCINONIDE 0.05% CREAM (60 GM TUBE) TP SCH ×2 (09:54→22:10)
[2021-02-25] MEDS: MINERAL OIL/PETROLAT/WATER TOPICAL CREAM 113 GM JAR TP SCH (09:54)
[2021-02-25] MEDS: COLLOIDAL OATMEAL 1 BAR EACH TP PRN (10:25)
[2021-02-25] MEDS: INSULIN (LEVEMIR) 100 UNITS/ML UNITS SQ SCH ×2 (10:59→22:06)
[2021-02-25] MEDS ORDERED: diphenhydrAMINE HCL 25 MG CAPSULE (FP) PO ONE (18:55)
[2021-02-25] MEDS: diphenhydrAMINE HCL 50 MG CAPSULE PO PRN (22:11)
[2021-02-25] MEDS: THIAMINE HCL 100 MG TABLET (FP) PO SCH (22:11)
[2021-02-26] MEDS: VITAMINS A AND D TOPICAL OINTMENT 60 GM TUBE TP SCH ×4 (01:01→18:22)
[2021-02-26] MEDS ORDERED: INSULIN (NOVOLOG) ASPART 100 UNITS/ML 10ML VIAL ONE ×3 (05:51→16:47)
[2021-02-26] MEDS: METHOCARBAMOL 500 MG TABLET PO PRN ×2 (06:25→22:38)
[2021-02-26] MEDS: GABAPENTIN 300 MG CAPSULE PO SCH ×3 (06:25→22:37)
[2021-02-26] MEDS: IBUPROFEN 400 MG TABLET (FP) PO PRN ×2 (06:26→22:38)
[2021-02-26] MEDS ORDERED: PT OWN MED DRAWER 7, Y5N ONE (06:28)
[2021-02-26] MEDS: INSULIN (NOVOLOG) ASPART 100 UNITS/ML 10ML VIAL SQ SCH ×3 (07:56→16:59)
[2021-02-26] MEDS: INSULIN SLIDING SCALE (NOVOLOG) 1 VIAL SQ SCH ×4 (07:58→22:40)
[2021-02-26] MEDS: PRENATAL VITAMINS W/ FOLIC ACID TABLET (FP) PO SCH (09:39)
[2021-02-26] MEDS: NIFEdipine E.R. 30 MG TABLET PO SCH (09:40)
[2021-02-26] MEDS: ACETAMINOPHEN 325 MG TABLET (FP) PO PRN (09:41)
[2021-02-26] MEDS: TOLNAFTATE 1% POWDER 45 GM POW TP SCH ×2 (09:43→22:41)
[2021-02-26] MEDS: METHYL SALICYLATE/MENTHOL OINT 30 GM TUBE TP SCH ×2 (09:43→22:41)
[2021-02-26] MEDS: MINERAL OIL/PETROLAT/WATER TOPICAL CREAM 113 GM JAR TP SCH (09:44)
[2021-02-26] MEDS: NICOTINE 21 MG/24 HOURS TOPICAL PATCH TD SCH (09:44)
[2021-02-26] MEDS: FLUOCINONIDE 0.05% CREAM (60 GM TUBE) TP SCH ×2 (09:44→22:40)
[2021-02-26] MEDS: INSULIN (LEVEMIR) 100 UNITS/ML UNITS SQ SCH ×2 (10:55→22:33)
[2021-02-26] MEDS ORDERED: diphenhydrAMINE HCL 25 MG CAPSULE (FP) PO ONE (22:32)
[2021-02-26] MEDS: diphenhydrAMINE HCL 50 MG CAPSULE PO PRN (22:37)
[2021-02-26] MEDS: THIAMINE HCL 100 MG TABLET (FP) PO SCH (22:38)
[2021-02-27] MEDS: VITAMINS A AND D TOPICAL OINTMENT 60 GM TUBE TP SCH ×5 (01:33→23:44)
[2021-02-27] MEDS: GABAPENTIN 300 MG CAPSULE PO SCH ×3 (06:53→21:11)
[2021-02-27] MEDS: IBUPROFEN 400 MG TABLET (FP) PO PRN ×3 (06:54→21:14)
[2021-02-27] MEDS: METHOCARBAMOL 500 MG TABLET PO PRN ×2 (06:55→21:14)
[2021-02-27] MEDS ORDERED: INSULIN (NOVOLOG) ASPART 100 UNITS/ML 10ML VIAL ONE ×2 (07:32→22:05)
[2021-02-27] MEDS: INSULIN (NOVOLOG) ASPART 100 UNITS/ML 10ML VIAL SQ SCH ×3 (08:04→16:24)
[2021-02-27] MEDS: INSULIN SLIDING SCALE (NOVOLOG) 1 VIAL SQ SCH ×4 (08:05→21:09)
[2021-02-27] MEDS: NIFEdipine E.R. 30 MG TABLET PO SCH (09:44)
[2021-02-27] MEDS: NICOTINE 21 MG/24 HOURS TOPICAL PATCH TD SCH (09:44)
[2021-02-27] MEDS: PRENATAL VITAMINS W/ FOLIC ACID TABLET (FP) PO SCH (09:44)
[2021-02-27] MEDS: FLUOCINONIDE 0.05% CREAM (60 GM TUBE) TP SCH ×2 (09:45→21:12)
[2021-02-27] MEDS: MINERAL OIL/PETROLAT/WATER TOPICAL CREAM 113 GM JAR TP SCH (09:45)
[2021-02-27] MEDS: METHYL SALICYLATE/MENTHOL OINT 30 GM TUBE TP SCH ×2 (09:46→21:12)
[2021-02-27] MEDS: TOLNAFTATE 1% POWDER 45 GM POW TP SCH ×2 (09:46→21:11)
[2021-02-27] MEDS: INSULIN (LEVEMIR) 100 UNITS/ML UNITS SQ SCH ×2 (11:21→21:09)
[2021-02-27] MEDS: THIAMINE HCL 100 MG TABLET (FP) PO SCH (21:11)
[2021-02-27] MEDS ORDERED: diphenhydrAMINE HCL 25 MG CAPSULE (FP) PO ONE (21:14)
[2021-02-27] MEDS: diphenhydrAMINE HCL 50 MG CAPSULE PO PRN (21:14)
[2021-02-28] MEDS: VITAMINS A AND D TOPICAL OINTMENT 60 GM TUBE TP SCH ×4 (06:19→23:22)
[2021-02-28] MEDS: GABAPENTIN 300 MG CAPSULE PO SCH ×3 (06:20→21:13)
[2021-02-28] MEDS: IBUPROFEN 400 MG TABLET (FP) PO PRN ×2 (06:21→21:14)
[2021-02-28] MEDS: COLLOIDAL OATMEAL 1 BAR EACH TP PRN (06:52)
[2021-02-28] MEDS: INSULIN SLIDING SCALE (NOVOLOG) 1 VIAL SQ SCH ×4 (07:59→21:11)
[2021-02-28] MEDS: INSULIN (NOVOLOG) ASPART 100 UNITS/ML 10ML VIAL SQ SCH ×3 (08:01→16:41)
[2021-02-28] MEDS ORDERED: INSULIN (NOVOLOG) ASPART 100 UNITS/ML 10ML VIAL ONE (08:02)
[2021-02-28] MEDS: PRENATAL VITAMINS W/ FOLIC ACID TABLET (FP) PO SCH (09:25)
[2021-02-28] MEDS: METHYL SALICYLATE/MENTHOL OINT 30 GM TUBE TP SCH ×2 (09:26→21:15)
[2021-02-28] MEDS: MINERAL OIL/PETROLAT/WATER TOPICAL CREAM 113 GM JAR TP SCH (09:27)
[2021-02-28] MEDS: FLUOCINONIDE 0.05% CREAM (60 GM TUBE) TP SCH ×2 (09:28→21:16)
[2021-02-28] MEDS: TOLNAFTATE 1% POWDER 45 GM POW TP SCH ×2 (09:29→21:15)
[2021-02-28] MEDS: NIFEdipine E.R. 30 MG TABLET PO SCH (09:29)
[2021-02-28] MEDS: ACETAMINOPHEN 325 MG TABLET (FP) PO PRN (09:31)
[2021-02-28] MEDS: METHOCARBAMOL 500 MG TABLET PO PRN (09:31)
[2021-02-28] MEDS: NICOTINE 21 MG/24 HOURS TOPICAL PATCH TD SCH (09:33)
[2021-02-28] MEDS: INSULIN (LEVEMIR) 100 UNITS/ML UNITS SQ SCH ×2 (11:24→21:11)
[2021-02-28] MEDS ORDERED: PT OWN MED DRAWER 7, Y5N ONE (19:19)
[2021-02-28] MEDS: THIAMINE HCL 100 MG TABLET (FP) PO SCH (21:13)
[2021-02-28] MEDS ORDERED: diphenhydrAMINE HCL 25 MG CAPSULE (FP) PO ONE (21:13)
[2021-02-28] MEDS: diphenhydrAMINE HCL 50 MG CAPSULE PO PRN (21:14)
[2021-03-01] MEDS: IBUPROFEN 400 MG TABLET (FP) PO PRN ×3 (06:23→21:09)
[2021-03-01] MEDS: GABAPENTIN 300 MG CAPSULE PO SCH ×3 (06:23→21:06)
[2021-03-01] MEDS: INSULIN SLIDING SCALE (NOVOLOG) 1 VIAL SQ SCH ×4 (06:25→21:14)
[2021-03-01] MEDS: INSULIN (NOVOLOG) ASPART 100 UNITS/ML 10ML VIAL SQ SCH ×3 (06:25→16:48)
[2021-03-01] MEDS: VITAMINS A AND D TOPICAL OINTMENT 60 GM TUBE TP SCH ×2 (06:27→12:15)
[2021-03-01] MEDS ORDERED: INSULIN (NOVOLOG) ASPART 100 UNITS/ML 10ML VIAL ONE ×2 (06:55→22:15)
[2021-03-01] MEDS ORDERED: MASKS NR ONE (07:56)
[2021-03-01] MEDS: METHYL SALICYLATE/MENTHOL OINT 30 GM TUBE TP SCH ×2 (10:03→21:07)
[2021-03-01] MEDS: PRENATAL VITAMINS W/ FOLIC ACID TABLET (FP) PO SCH (10:03)
[2021-03-01] MEDS: NICOTINE 21 MG/24 HOURS TOPICAL PATCH TD SCH (10:03)
[2021-03-01] MEDS: FLUOCINONIDE 0.05% CREAM (60 GM TUBE) TP SCH ×2 (10:03→21:07)
[2021-03-01] MEDS: MINERAL OIL/PETROLAT/WATER TOPICAL CREAM 113 GM JAR TP SCH (10:03)
[2021-03-01] MEDS: TOLNAFTATE 1% POWDER 45 GM POW TP SCH ×2 (10:04→21:05)
[2021-03-01] MEDS: NIFEdipine E.R. 30 MG TABLET PO SCH (10:04)
[2021-03-01] MEDS: INSULIN (LEVEMIR) 100 UNITS/ML UNITS SQ SCH ×2 (10:56→21:12)
[2021-03-01] MEDS: FUROSEMIDE 40 MG TABLET (FP) PO SCH (14:13)
[2021-03-01] MEDS: THIAMINE HCL 100 MG TABLET (FP) PO SCH (21:05)
[2021-03-01] MEDS ORDERED: diphenhydrAMINE HCL 25 MG CAPSULE (FP) PO ONE (21:09)
[2021-03-01] MEDS: diphenhydrAMINE HCL 50 MG CAPSULE PO PRN (21:10)
[2021-03-01] MEDS ORDERED: PT OWN MED DRAWER 7, Y5N ONE (22:13)
[2021-03-02] MEDS: IBUPROFEN 400 MG TABLET (FP) PO PRN (06:07)
[2021-03-02] MEDS: GABAPENTIN 300 MG CAPSULE PO SCH (06:07)
[2021-03-02] MEDS: FUROSEMIDE 40 MG TABLET (FP) PO SCH (06:08)
[2021-03-02] MEDS: INSULIN (NOVOLOG) ASPART 100 UNITS/ML 10ML VIAL SQ SCH (06:08)
[2021-03-02] MEDS: INSULIN SLIDING SCALE (NOVOLOG) 1 VIAL SQ SCH (06:09)
[2021-03-02] MEDS ORDERED: INSULIN (NOVOLOG) ASPART 100 UNITS/ML 10ML VIAL ONE (06:55)
[2021-03-02 07:15] VITALS: TEMP 97.1
[2021-03-02] MEDS ORDERED: VITAMINS A AND D TOPICAL OINTMENT 60 GM TUBE TP SCH (10:00)
[2021-03-02] MEDS: INSULIN (LEVEMIR) 100 UNITS/ML UNITS SQ SCH (10:23)
[2021-03-02] MEDS: METHYL SALICYLATE/MENTHOL OINT 30 GM TUBE TP SCH (10:23)
[2021-03-02] MEDS: FLUOCINONIDE 0.05% CREAM (60 GM TUBE) TP SCH (10:23)
[2021-03-02] MEDS: MINERAL OIL/PETROLAT/WATER TOPICAL CREAM 113 GM JAR TP SCH (10:23)
[2021-03-02] MEDS: NICOTINE 21 MG/24 HOURS TOPICAL PATCH TD SCH (10:23)
[2021-03-02] MEDS: TOLNAFTATE 1% POWDER 45 GM POW TP SCH (10:23)
[2021-03-02] MEDS: PRENATAL VITAMINS W/ FOLIC ACID TABLET (FP) PO SCH (10:23)
[2021-03-02] MEDS: NIFEdipine E.R. 30 MG TABLET PO SCH (10:24)
[2021-03-02 11:19] VITALS: BP 141/67; PULSE 90
== END 2021-03-02 10:35 | disposition home or self-care (01) | DRG 772 ==
LOC: YASAS 13:02 → Y5N 13:04
PROVIDERS: ADMIT Allergy & Immunology; ATTEND Allergy & Immunology
PROC: HZ42ZZZ Group Counseling for Substance Abuse Treatment, Cognitive-Behavioral (ICD-10-PCS; principal; 2021-02-16)
DX: F10.20 Alcohol dependence, uncomplicated (principal); F14.20 Cocaine dependence, uncomplicated; F13.20 Sedative, hypnotic or anxiolytic dependence, uncomplicated; F16.20 Hallucinogen dependence, uncomplicated; F17.210 Nicotine dependence, cigarettes, uncomplicated; F31.9 Bipolar disorder, unspecified; F41.9 Anxiety disorder, unspecified; G62.9 Polyneuropathy, unspecified; G47.00 Insomnia, unspecified; G40.89 Other seizures; E78.5 Hyperlipidemia, unspecified; E11.42 Type 2 diabetes mellitus with diabetic polyneuropathy; E11.65 Type 2 diabetes mellitus with hyperglycemia; Z79.4 Long term (current) use of insulin; I10 Essential (primary) hypertension; M17.11 Unilateral primary osteoarthritis, right knee; M54.5 Low back pain; G89.29 Other chronic pain; R60.0 Localized edema; Z85.46 Personal history of malignant neoplasm of prostate; Z88.0 Allergy status to penicillin; Z91.018 Allergy to other foods
CPT/HCPCS: 82962

== ENCOUNTER 2021-04-29 07:49 | Inpatient (IN) | payer OTHER ==
[2021-04-29 09:20] VITALS: BMI 29.9
[2021-04-29] MEDS ORDERED: MAGNESIUM HYDROX 2400MG/30ML ORAL SUSPENSION 30 ML CUP PO PRN (10:14)
[2021-04-29] MEDS ORDERED: MENTHOL/PHENOL 1 EACH UD MM PRN (10:14)
[2021-04-29] MEDS ORDERED: MAG HYDROX/AL HYDROX/SIMETH 30 ML UNIT-DOSE CUP PO PRN (10:14)
[2021-04-29] MEDS ORDERED: diazePAM 5 MG TABLET PO PRN (10:14)
[2021-04-29] MEDS ORDERED: ACETAMINOPHEN 325 MG TABLET (FP) PO PRN (10:14)
[2021-04-29] MEDS ORDERED: MAGNESIUM CITRATE 300 ML BOTTLE PO PRN (10:14)
[2021-04-29] MEDS ORDERED: NICOTINE 10 MG CARTRIDGE (INHALER) IH PRN (10:14)
[2021-04-29] MEDS ORDERED: BISMUTH SUBSALICYLATE 524 MG/30 ML PO PRN (10:14)
[2021-04-29] MEDS ORDERED: ONDANSETRON *ODT* 4 MG TABLET SL PRN (10:14)
[2021-04-29] MEDS ORDERED: COLLOIDAL OATMEAL 1 BAR EACH TP PRN (10:17)
[2021-04-29] MEDS ORDERED: INSULIN SLIDING SCALE (NOVOLOG) 1 VIAL SQ ONE ×2 (12:44→17:10)
[2021-04-29] MEDS ORDERED: LEUPROLIDE ACETATE 7.5 MG KIT IM ONE (14:00)
[2021-04-29] MEDS: NICOTINE 14 MG/24 HOURS TOPICAL PATCH TD SCH (14:04)
[2021-04-29] MEDS: METHOCARBAMOL 500 MG TABLET PO PRN (14:08)
[2021-04-29] MEDS: FUROSEMIDE 40 MG TABLET (FP) PO SCH (14:08)
[2021-04-29] MEDS: GABAPENTIN 300 MG CAPSULE PO SCH ×2 (14:08→22:18)
[2021-04-29] MEDS: INSULIN (NOVOLOG) ASPART 100 UNITS/ML 10ML VIAL SQ SCH ×2 (14:09→17:19)
[2021-04-29] MEDS: diazePAM 5 MG TABLET PO SCH ×3 (14:09→22:21)
[2021-04-29] MEDS: PRENATAL VITAMINS W/ FOLIC ACID TABLET (FP) PO SCH (14:10)
[2021-04-29] MEDS: hydrOXYzine PAMOATE 25 MG CAPSULE (FP) PO SCH ×3 (14:10→22:19)
[2021-04-29] MEDS: TOLNAFTATE 1% POWDER 45 GM POW TP SCH ×2 (14:10→22:23)
[2021-04-29 14:53] LABS: HEMATOCRIT 42.6 % (35.4-49); HEMOGLOBIN 14.8 GM/dL (11.7-16.9); MCH 32.3 pg (25.7-33.7); MCHC 34.8 g/dl (32.0-35.9); MEAN CELL VOLUME 92.9 fl (80-96); MEAN PLT VOLUME 9.3 fl (7.5-11.1); PLATELET COUNT 304 10^3/uL (134-434); RBC 4.59 M/mm3 (4.00-5.60); RDW 13.9 % (11.9-15.9); WHITE BLOOD COUNT 7.4 K/mm3 (4.0-10.0)
[2021-04-29 14:56] LABS: CHLORIDE 103 mmol/L (98-107); SODIUM 139 mmol/L (136-145)
[2021-04-29 15:02] LABS: ALBUMIN 3.9 g/dl (3.4-5.0); CREATININE 1.7 mg/dL (0.55-1.3)
[2021-04-29 15:04] LABS: ANION GAP 9 MMOL/L (8-16); BILIRUBIN,TOTAL 0.8 mg/dL (0.2-1); BLOOD UREA NITROGEN 18.1 mg/dL (7-18); CO2 27 mmol/L (21-32); SGPT/ALT 32 U/L (13-61); TOT PROT 8.2 g/dl (6.4-8.2)
[2021-04-29 15:05] LABS: ALK PHOS 90 U/L (45-117); SGOT/AST 29 U/L (15-37)
[2021-04-29 15:07] LABS: CALCIUM 9.5 mg/dL (8.5-10.1)
[2021-04-29 15:14] LABS: GLUCOSE,RANDOM 404 mg/dL (74-106)
[2021-04-29 15:50] LABS: HIV INTERPRETATION NEGATIVE (NEGATIVE)
[2021-04-29] MEDS ORDERED: diphenhydrAMINE HCL 25 MG CAPSULE (FP) PO PRN (22:00)
[2021-04-29] MEDS ORDERED: MELATONIN 5 MG TABLETS PO SCH (22:00)
[2021-04-29] MEDS: THIAMINE HCL 100 MG TABLET (FP) PO SCH (22:19)
[2021-04-29] MEDS: INSULIN (LEVEMIR) 100 UNITS/ML UNITS SQ SCH (22:19)
[2021-04-29] MEDS: ACETAMINOPHEN 325 MG TABLET (FP) PO PRN (23:29)
[2021-04-30] MEDS: GABAPENTIN 300 MG CAPSULE PO SCH ×3 (06:07→22:23)
[2021-04-30] MEDS: FUROSEMIDE 40 MG TABLET (FP) PO SCH ×2 (06:07→13:12)
[2021-04-30] MEDS: diazePAM 5 MG TABLET PO SCH ×4 (06:07→22:23)
[2021-04-30] MEDS: hydrOXYzine PAMOATE 25 MG CAPSULE (FP) PO SCH ×2 (06:07→11:12)
[2021-04-30] MEDS ORDERED: INSULIN SLIDING SCALE (NOVOLOG) 1 VIAL SQ ONE ×2 (07:25→11:04)
[2021-04-30] MEDS: INSULIN (NOVOLOG) ASPART 100 UNITS/ML 10ML VIAL SQ SCH ×3 (07:37→18:29)
[2021-04-30] MEDS: PRENATAL VITAMINS W/ FOLIC ACID TABLET (FP) PO SCH (11:13)
[2021-04-30] MEDS: NICOTINE 14 MG/24 HOURS TOPICAL PATCH TD SCH (11:13)
[2021-04-30] MEDS: NIFEdipine E.R. 30 MG TABLET PO SCH (11:13)
[2021-04-30] MEDS: INSULIN (LEVEMIR) 100 UNITS/ML UNITS SQ SCH ×2 (11:13→22:24)
[2021-04-30] MEDS: TOLNAFTATE 1% POWDER 45 GM POW TP SCH ×2 (11:14→23:30)
[2021-04-30] MEDS ORDERED: hydrOXYzine PAMOATE 25 MG CAPSULE (FP) PO PRN (12:06)
[2021-04-30] MEDS: ACETAMINOPHEN 325 MG TABLET (FP) PO PRN (18:34)
[2021-04-30] MEDS: THIAMINE HCL 100 MG TABLET (FP) PO SCH (22:27)
[2021-04-30] MEDS: OFLOXACIN 0.3% OTIC SOLUTION 5 ML BOTTLE AU SCH (22:45)
[2021-05-01] MEDS ORDERED: INSULIN SLIDING SCALE (NOVOLOG) 1 VIAL SQ ONE (04:27)
[2021-05-01] MEDS: diazePAM 5 MG TABLET PO SCH ×3 (06:30→22:29)
[2021-05-01] MEDS: FUROSEMIDE 40 MG TABLET (FP) PO SCH ×2 (06:30→14:30)
[2021-05-01] MEDS: GABAPENTIN 300 MG CAPSULE PO SCH ×3 (06:31→22:28)
[2021-05-01] MEDS: INSULIN (NOVOLOG) ASPART 100 UNITS/ML 10ML VIAL SQ SCH ×3 (08:01→17:13)
[2021-05-01] MEDS: OFLOXACIN 0.3% OTIC SOLUTION 5 ML BOTTLE AU SCH (10:45)
[2021-05-01] MEDS: TOLNAFTATE 1% POWDER 45 GM POW TP SCH (10:46)
[2021-05-01] MEDS: NIFEdipine E.R. 30 MG TABLET PO SCH (10:46)
[2021-05-01] MEDS: PRENATAL VITAMINS W/ FOLIC ACID TABLET (FP) PO SCH (10:46)
[2021-05-01] MEDS: NICOTINE 14 MG/24 HOURS TOPICAL PATCH TD SCH (11:25)
[2021-05-01] MEDS: INSULIN (LEVEMIR) 100 UNITS/ML UNITS SQ SCH (11:55)
[2021-05-01] MEDS: METHOCARBAMOL 500 MG TABLET PO PRN (22:29)
[2021-05-01] MEDS: THIAMINE HCL 100 MG TABLET (FP) PO SCH (22:33)
[2021-05-02] MEDS: OFLOXACIN 0.3% OTIC SOLUTION 5 ML BOTTLE AU SCH ×3 (00:01→21:53)
[2021-05-02] MEDS: TOLNAFTATE 1% POWDER 45 GM POW TP SCH ×3 (00:01→21:55)
[2021-05-02] MEDS ORDERED: INSULIN SLIDING SCALE (NOVOLOG) 1 VIAL SQ ONE ×2 (05:07→08:25)
[2021-05-02] MEDS: FUROSEMIDE 40 MG TABLET (FP) PO SCH ×2 (06:42→14:12)
[2021-05-02] MEDS: diazePAM 5 MG TABLET PO SCH ×2 (06:43→17:29)
[2021-05-02] MEDS: GABAPENTIN 300 MG CAPSULE PO SCH ×3 (07:08→21:54)
[2021-05-02] MEDS: INSULIN (NOVOLOG) ASPART 100 UNITS/ML 10ML VIAL SQ SCH ×3 (08:04→17:27)
[2021-05-02] MEDS: PRENATAL VITAMINS W/ FOLIC ACID TABLET (FP) PO SCH (10:31)
[2021-05-02] MEDS: NIFEdipine E.R. 30 MG TABLET PO SCH (10:31)
[2021-05-02] MEDS: NICOTINE 14 MG/24 HOURS TOPICAL PATCH TD SCH (10:31)
[2021-05-02] MEDS: IBUPROFEN 400 MG TABLET (FP) PO PRN (10:34)
[2021-05-02] MEDS: INSULIN (LEVEMIR) 100 UNITS/ML UNITS SQ SCH ×3 (10:58→22:21)
[2021-05-02] MEDS: ACETAMINOPHEN 325 MG TABLET (FP) PO PRN (21:54)
[2021-05-02] MEDS: THIAMINE HCL 100 MG TABLET (FP) PO SCH (21:54)
[2021-05-02] MEDS: METHOCARBAMOL 500 MG TABLET PO PRN (21:55)
[2021-05-03] MEDS ORDERED: INSULIN SLIDING SCALE (NOVOLOG) 1 VIAL SQ ONE (04:13)
[2021-05-03] MEDS: FUROSEMIDE 40 MG TABLET (FP) PO SCH (05:36)
[2021-05-03] MEDS: GABAPENTIN 300 MG CAPSULE PO SCH (05:36)
[2021-05-03] MEDS ORDERED: diazePAM 5 MG TABLET PO ONE (06:00)
[2021-05-03] MEDS: INSULIN (NOVOLOG) ASPART 100 UNITS/ML 10ML VIAL SQ SCH (07:22)
[2021-05-03] MEDS: IBUPROFEN 400 MG TABLET (FP) PO PRN (07:29)
[2021-05-03] MEDS: ACETAMINOPHEN 325 MG TABLET (FP) PO PRN (09:47)
[2021-05-03 09:51] VITALS: BP 110/69; PULSE 76; TEMP 98.2
[2021-05-03] MEDS: PRENATAL VITAMINS W/ FOLIC ACID TABLET (FP) PO SCH (10:29)
[2021-05-03] MEDS: OFLOXACIN 0.3% OTIC SOLUTION 5 ML BOTTLE AU SCH (10:29)
[2021-05-03] MEDS: NICOTINE 14 MG/24 HOURS TOPICAL PATCH TD SCH (10:29)
[2021-05-03] MEDS: TOLNAFTATE 1% POWDER 45 GM POW TP SCH (10:29)
[2021-05-03] MEDS: NIFEdipine E.R. 30 MG TABLET PO SCH (10:29)
[2021-05-03] MEDS: INSULIN (LEVEMIR) 100 UNITS/ML UNITS SQ SCH (10:33)
== END 2021-05-03 11:28 | disposition other institution (70) | DRG 774 ==
LOC: YASAS 07:49 → Y3N 11:17
PROVIDERS: ADMIT Allergy & Immunology; ATTEND Allergy & Immunology
PROC: HZ2ZZZZ Detoxification Services for Substance Abuse Treatment (ICD-10-PCS; principal; 2021-04-29)
DX: F10.230 Alcohol dependence with withdrawal, uncomplicated (principal); F14.20 Cocaine dependence, uncomplicated; F13.20 Sedative, hypnotic or anxiolytic dependence, uncomplicated; F16.20 Hallucinogen dependence, uncomplicated; F17.210 Nicotine dependence, cigarettes, uncomplicated; F31.81 Bipolar II disorder; F19.282 Other psychoactive substance dependence with psychoactive substance-induced sleep disorder; F19.24 Other psychoactive substance dependence with psychoactive substance-induced mood disorder; F41.9 Anxiety disorder, unspecified; E11.65 Type 2 diabetes mellitus with hyperglycemia; E11.42 Type 2 diabetes mellitus with diabetic polyneuropathy; E11.49 Type 2 diabetes mellitus with other diabetic neurological complication; E78.5 Hyperlipidemia, unspecified; R56.9 Unspecified convulsions; M17.11 Unilateral primary osteoarthritis, right knee; M54.5 Low back pain; G89.29 Other chronic pain; Z79.4 Long term (current) use of insulin; Z85.46 Personal history of malignant neoplasm of prostate; Z99.89 Dependence on other enabling machines and devices; Z88.0 Allergy status to penicillin; Z91.018 Allergy to other foods
CPT/HCPCS: 36415; 80053; 82962; 85027; 86780; 87389; C9803; U0003; U0005

== ENCOUNTER 2021-05-03 11:43 | Inpatient (IN) | payer OTHER ==
[2021-05-03] MEDS ORDERED: INSULIN (NOVOLOG) ASPART 100 UNITS/ML 10ML VIAL SQ ONE (12:50)
[2021-05-03] MEDS ORDERED: P-EPHED 60MG/TRIPROLIDI 2.5MG TABLET PO PRN (12:51)
[2021-05-03] MEDS ORDERED: MENTHOL/PHENOL 1 EACH UD MM PRN (12:51)
[2021-05-03] MEDS ORDERED: MAGNESIUM HYDROX 2400MG/30ML ORAL SUSPENSION 30 ML CUP PO PRN (12:51)
[2021-05-03] MEDS ORDERED: MAGNESIUM CITRATE 300 ML BOTTLE PO PRN (12:51)
[2021-05-03] MEDS ORDERED: hydrOXYzine PAMOATE 25 MG CAPSULE (FP) PO PRN (12:51)
[2021-05-03] MEDS ORDERED: MAG HYDROX/AL HYDROX/SIMETH 30 ML UNIT-DOSE CUP PO PRN (12:51)
[2021-05-03] MEDS ORDERED: guaiFENesin 200 MG/10 ML 10 ML UNIT-DOSE CUPS PO PRN (12:51)
[2021-05-03] MEDS ORDERED: LOPERAMIDE HCL 2 MG CAPSULE PO PRN (12:51)
[2021-05-03] MEDS ORDERED: diphenhydrAMINE HCL 50 MG CAPSULE PO PRN (12:52)
[2021-05-03] MEDS: FUROSEMIDE 40 MG TABLET (FP) PO SCH (14:42)
[2021-05-03] MEDS: GABAPENTIN 300 MG CAPSULE PO SCH ×2 (14:42→22:01)
[2021-05-03] MEDS: INSULIN SLIDING SCALE (NOVOLOG) 1 VIAL SQ SCH ×2 (17:29→21:58)
[2021-05-03] MEDS: INSULIN (LEVEMIR) 100 UNITS/ML UNITS SQ SCH (21:58)
[2021-05-03] MEDS ORDERED: INSULIN (LEVEMIR) 100 UNITS/ML UNITS SQ SCH (22:00)
[2021-05-03] MEDS: OFLOXACIN 0.3% OTIC SOLUTION 5 ML BOTTLE AU SCH (22:00)
[2021-05-03] MEDS: MELATONIN 5 MG TABLETS PO SCH (22:01)
[2021-05-03] MEDS: diphenhydrAMINE HCL 25 MG CAPSULE (FP) PO PRN (22:03)
[2021-05-03] MEDS ORDERED: INSULIN (NOVOLOG) ASPART 100 UNITS/ML 10ML VIAL ONE (22:07)
[2021-05-03] MEDS: THIAMINE HCL 100 MG TABLET (FP) PO SCH (22:48)
[2021-05-04] MEDS: IBUPROFEN 400 MG TABLET (FP) PO PRN (00:22)
[2021-05-04] MEDS: GABAPENTIN 300 MG CAPSULE PO SCH ×3 (06:03→21:49)
[2021-05-04] MEDS: FUROSEMIDE 40 MG TABLET (FP) PO SCH ×2 (06:03→14:01)
[2021-05-04] MEDS: ACETAMINOPHEN 325 MG TABLET (FP) PO PRN (06:04)
[2021-05-04] MEDS ORDERED: INSULIN (NOVOLOG) ASPART 100 UNITS/ML 10ML VIAL ONE ×4 (07:11→22:03)
[2021-05-04] MEDS: INSULIN SLIDING SCALE (NOVOLOG) 1 VIAL SQ SCH ×4 (07:43→21:52)
[2021-05-04] MEDS: PRENATAL VITAMINS W/ FOLIC ACID TABLET (FP) PO SCH (10:06)
[2021-05-04] MEDS: NIFEdipine E.R. 30 MG TABLET PO SCH (10:06)
[2021-05-04] MEDS: SPIRONOLACTONE 25 MG TABLET PO SCH (10:09)
[2021-05-04] MEDS: OFLOXACIN 0.3% OTIC SOLUTION 5 ML BOTTLE AU SCH ×2 (10:10→21:48)
[2021-05-04] MEDS: INSULIN (LEVEMIR) 100 UNITS/ML UNITS SQ SCH ×2 (10:14→21:48)
[2021-05-04] MEDS: METHOCARBAMOL 500 MG TABLET PO PRN ×2 (13:58→21:52)
[2021-05-04] MEDS: LIDOCAINE 2.5%/PRILOCAINE 2.5% 30 GRAM TUBE TP PRN (16:01)
[2021-05-04] MEDS: THIAMINE HCL 100 MG TABLET (FP) PO SCH (21:49)
[2021-05-04] MEDS: MELATONIN 5 MG TABLETS PO SCH (21:49)
[2021-05-04] MEDS: diphenhydrAMINE HCL 25 MG CAPSULE (FP) PO PRN (21:49)
[2021-05-05] MEDS: IBUPROFEN 400 MG TABLET (FP) PO PRN (00:03)
[2021-05-05] MEDS: FUROSEMIDE 40 MG TABLET (FP) PO SCH ×2 (07:08→14:10)
[2021-05-05] MEDS: GABAPENTIN 300 MG CAPSULE PO SCH ×3 (07:08→21:59)
[2021-05-05] MEDS: INSULIN SLIDING SCALE (NOVOLOG) 1 VIAL SQ SCH ×4 (07:09→22:01)
[2021-05-05] MEDS: METHOCARBAMOL 500 MG TABLET PO PRN ×3 (07:12→21:58)
[2021-05-05] MEDS: ACETAMINOPHEN 325 MG TABLET (FP) PO PRN (07:12)
[2021-05-05] MEDS ORDERED: INSULIN (NOVOLOG) ASPART 100 UNITS/ML 10ML VIAL ONE ×3 (07:20→22:07)
[2021-05-05] MEDS ORDERED: TOLNAFTATE 1% POWDER 45 GM POW TP SCH (10:00)
[2021-05-05] MEDS: OFLOXACIN 0.3% OTIC SOLUTION 5 ML BOTTLE AU SCH (10:09)
[2021-05-05] MEDS: NIFEdipine E.R. 30 MG TABLET PO SCH (10:10)
[2021-05-05] MEDS: PRENATAL VITAMINS W/ FOLIC ACID TABLET (FP) PO SCH (10:10)
[2021-05-05] MEDS: SPIRONOLACTONE 25 MG TABLET PO SCH (10:10)
[2021-05-05] MEDS ORDERED: INSULIN (LEVEMIR) 100 UNITS/ML UNITS SQ ONE (10:11)
[2021-05-05] MEDS: INSULIN (LEVEMIR) 100 UNITS/ML UNITS SQ SCH ×2 (10:14→22:00)
[2021-05-05] MEDS: COLLOIDAL OATMEAL 1 BAR EACH TP PRN (10:34)
[2021-05-05] MEDS: FLUOCINONIDE 0.05% CREAM (60 GM TUBE) TP SCH ×2 (10:35→22:00)
[2021-05-05] MEDS: TOLNAFTATE 1% CREAM 15 GM TUBE TP SCH ×2 (10:35→22:01)
[2021-05-05] MEDS ORDERED: PT OWN MED DRAWER 7, Y5N ONE (16:00)
[2021-05-05] MEDS: THIAMINE HCL 100 MG TABLET (FP) PO SCH (21:59)
[2021-05-05] MEDS: diphenhydrAMINE HCL 25 MG CAPSULE (FP) PO PRN (21:59)
[2021-05-05] MEDS: MELATONIN 5 MG TABLETS PO SCH (22:01)
[2021-05-06] MEDS: IBUPROFEN 400 MG TABLET (FP) PO PRN ×3 (01:13→21:54)
[2021-05-06] MEDS: GABAPENTIN 300 MG CAPSULE PO SCH ×3 (06:24→21:52)
[2021-05-06] MEDS: FUROSEMIDE 40 MG TABLET (FP) PO SCH ×2 (06:24→12:59)
[2021-05-06] MEDS: INSULIN SLIDING SCALE (NOVOLOG) 1 VIAL SQ SCH ×4 (06:26→21:53)
[2021-05-06] MEDS: ACETAMINOPHEN 325 MG TABLET (FP) PO PRN ×2 (06:28→10:12)
[2021-05-06] MEDS ORDERED: INSULIN (NOVOLOG) ASPART 100 UNITS/ML 10ML VIAL ONE ×3 (06:57→21:51)
[2021-05-06] MEDS: SPIRONOLACTONE 25 MG TABLET PO SCH (10:08)
[2021-05-06] MEDS: PRENATAL VITAMINS W/ FOLIC ACID TABLET (FP) PO SCH (10:08)
[2021-05-06] MEDS: INSULIN (LEVEMIR) 100 UNITS/ML UNITS SQ SCH ×2 (10:10→21:53)
[2021-05-06] MEDS: FLUOCINONIDE 0.05% CREAM (60 GM TUBE) TP SCH ×2 (10:10→21:53)
[2021-05-06] MEDS: NIFEdipine E.R. 30 MG TABLET PO SCH (10:12)
[2021-05-06] MEDS: TOLNAFTATE 1% CREAM 15 GM TUBE TP SCH (10:12)
[2021-05-06] MEDS: METHOCARBAMOL 500 MG TABLET PO PRN ×2 (10:13→21:53)
[2021-05-06] MEDS ORDERED: SIMETHICONE 80 MG TAB.CHEW (FP) PO PRN (13:23)
[2021-05-06] MEDS: diphenhydrAMINE HCL 25 MG CAPSULE (FP) PO PRN (21:51)
[2021-05-06] MEDS: MELATONIN 5 MG TABLETS PO SCH (21:52)
[2021-05-06] MEDS: THIAMINE HCL 100 MG TABLET (FP) PO SCH (22:04)
[2021-05-07] MEDS: ACETAMINOPHEN 325 MG TABLET (FP) PO PRN (01:58)
[2021-05-07] MEDS: GABAPENTIN 300 MG CAPSULE PO SCH ×3 (06:48→22:06)
[2021-05-07] MEDS: FUROSEMIDE 40 MG TABLET (FP) PO SCH ×2 (06:48→14:23)
[2021-05-07] MEDS: METHOCARBAMOL 500 MG TABLET PO PRN ×2 (06:49→22:07)
[2021-05-07] MEDS: INSULIN SLIDING SCALE (NOVOLOG) 1 VIAL SQ SCH ×4 (06:54→22:13)
[2021-05-07] MEDS ORDERED: INSULIN (NOVOLOG) ASPART 100 UNITS/ML 10ML VIAL ONE ×3 (07:11→16:48)
[2021-05-07] MEDS: SPIRONOLACTONE 25 MG TABLET PO SCH (09:59)
[2021-05-07] MEDS: NIFEdipine E.R. 30 MG TABLET PO SCH (09:59)
[2021-05-07] MEDS: PRENATAL VITAMINS W/ FOLIC ACID TABLET (FP) PO SCH (09:59)
[2021-05-07] MEDS: FLUOCINONIDE 0.05% CREAM (60 GM TUBE) TP SCH ×2 (10:00→22:09)
[2021-05-07] MEDS: COLLOIDAL OATMEAL 1 BAR EACH TP PRN (14:25)
[2021-05-07] MEDS: IBUPROFEN 400 MG TABLET (FP) PO PRN ×2 (16:49→22:07)
[2021-05-07] MEDS ORDERED: PT OWN MED DRAWER 7, Y5N ONE (22:04)
[2021-05-07] MEDS: THIAMINE HCL 100 MG TABLET (FP) PO SCH (22:06)
[2021-05-07] MEDS: diphenhydrAMINE HCL 25 MG CAPSULE (FP) PO PRN (22:08)
[2021-05-07] MEDS: MELATONIN 5 MG TABLETS PO SCH (22:14)
[2021-05-07] MEDS: INSULIN (LEVEMIR) 100 UNITS/ML UNITS SQ SCH (22:14)
[2021-05-08] MEDS: ACETAMINOPHEN 325 MG TABLET (FP) PO PRN (02:37)
[2021-05-08] MEDS ORDERED: PT OWN MED DRAWER 7, Y5N ONE ×4 (03:14→21:47)
[2021-05-08] MEDS: FUROSEMIDE 40 MG TABLET (FP) PO SCH ×2 (06:06→14:12)
[2021-05-08] MEDS: GABAPENTIN 300 MG CAPSULE PO SCH ×3 (06:07→21:43)
[2021-05-08] MEDS: INSULIN (LEVEMIR) 100 UNITS/ML UNITS SQ SCH ×2 (06:08→21:50)
[2021-05-08] MEDS: IBUPROFEN 400 MG TABLET (FP) PO PRN ×3 (06:10→21:44)
[2021-05-08] MEDS ORDERED: INSULIN (NOVOLOG) ASPART 100 UNITS/ML 10ML VIAL ONE ×4 (07:11→21:52)
[2021-05-08] MEDS: INSULIN SLIDING SCALE (NOVOLOG) 1 VIAL SQ SCH ×4 (07:37→21:51)
[2021-05-08] MEDS: NIFEdipine E.R. 30 MG TABLET PO SCH (09:59)
[2021-05-08] MEDS: SPIRONOLACTONE 25 MG TABLET PO SCH (09:59)
[2021-05-08] MEDS: PRENATAL VITAMINS W/ FOLIC ACID TABLET (FP) PO SCH (09:59)
[2021-05-08] MEDS: FLUOCINONIDE 0.05% CREAM (60 GM TUBE) TP SCH ×2 (10:02→21:46)
[2021-05-08] MEDS: METHOCARBAMOL 500 MG TABLET PO PRN ×2 (14:12→21:43)
[2021-05-08] MEDS: diphenhydrAMINE HCL 25 MG CAPSULE (FP) PO PRN (21:43)
[2021-05-08] MEDS: LIDOCAINE 2.5%/PRILOCAINE 2.5% 30 GRAM TUBE TP PRN (21:45)
[2021-05-08] MEDS: TOLNAFTATE 1% CREAM 15 GM TUBE TP PRN (21:49)
[2021-05-08] MEDS: THIAMINE HCL 100 MG TABLET (FP) PO SCH (21:51)
[2021-05-08] MEDS: MELATONIN 5 MG TABLETS PO SCH (21:51)
[2021-05-09] MEDS: ACETAMINOPHEN 325 MG TABLET (FP) PO PRN ×3 (01:00→21:47)
[2021-05-09] MEDS: IBUPROFEN 400 MG TABLET (FP) PO PRN ×2 (05:55→17:32)
[2021-05-09] MEDS: GABAPENTIN 300 MG CAPSULE PO SCH ×3 (05:55→21:46)
[2021-05-09] MEDS: FUROSEMIDE 40 MG TABLET (FP) PO SCH ×2 (05:55→13:59)
[2021-05-09] MEDS: METHOCARBAMOL 500 MG TABLET PO PRN ×4 (05:56→21:47)
[2021-05-09] MEDS: INSULIN (LEVEMIR) 100 UNITS/ML UNITS SQ SCH ×2 (06:00→21:50)
[2021-05-09] MEDS ORDERED: INSULIN (NOVOLOG) ASPART 100 UNITS/ML 10ML VIAL ONE ×4 (07:35→21:57)
[2021-05-09] MEDS: INSULIN SLIDING SCALE (NOVOLOG) 1 VIAL SQ SCH ×4 (07:48→21:48)
[2021-05-09] MEDS: NIFEdipine E.R. 30 MG TABLET PO SCH (09:58)
[2021-05-09] MEDS: SPIRONOLACTONE 25 MG TABLET PO SCH (09:58)
[2021-05-09] MEDS: PRENATAL VITAMINS W/ FOLIC ACID TABLET (FP) PO SCH (09:58)
[2021-05-09] MEDS: LIDOCAINE 2.5%/PRILOCAINE 2.5% 30 GRAM TUBE TP PRN (09:59)
[2021-05-09] MEDS: FLUOCINONIDE 0.05% CREAM (60 GM TUBE) TP SCH ×2 (09:59→21:50)
[2021-05-09] MEDS: diphenhydrAMINE HCL 25 MG CAPSULE (FP) PO PRN (21:46)
[2021-05-09] MEDS: THIAMINE HCL 100 MG TABLET (FP) PO SCH (21:47)
[2021-05-09] MEDS: MELATONIN 5 MG TABLETS PO SCH (21:50)
[2021-05-10] MEDS ORDERED: PT OWN MED DRAWER 7, Y5N ONE (03:13)
[2021-05-10] MEDS: GABAPENTIN 300 MG CAPSULE PO SCH ×3 (07:03→21:40)
[2021-05-10] MEDS: METHOCARBAMOL 500 MG TABLET PO PRN ×4 (07:03→21:42)
[2021-05-10] MEDS: FUROSEMIDE 40 MG TABLET (FP) PO SCH ×2 (07:03→14:13)
[2021-05-10] MEDS: IBUPROFEN 400 MG TABLET (FP) PO PRN ×3 (07:03→21:43)
[2021-05-10] MEDS: INSULIN (LEVEMIR) 100 UNITS/ML UNITS SQ SCH ×2 (07:04→21:44)
[2021-05-10] MEDS: INSULIN SLIDING SCALE (NOVOLOG) 1 VIAL SQ SCH ×4 (07:05→21:44)
[2021-05-10] MEDS: PRENATAL VITAMINS W/ FOLIC ACID TABLET (FP) PO SCH (10:16)
[2021-05-10] MEDS: NIFEdipine E.R. 30 MG TABLET PO SCH (10:17)
[2021-05-10] MEDS: FLUOCINONIDE 0.05% CREAM (60 GM TUBE) TP SCH ×2 (10:17→21:44)
[2021-05-10] MEDS: SPIRONOLACTONE 25 MG TABLET PO SCH (10:17)
[2021-05-10] MEDS: TOLNAFTATE 1% CREAM 15 GM TUBE TP PRN (10:17)
[2021-05-10] MEDS: LIDOCAINE 2.5%/PRILOCAINE 2.5% 30 GRAM TUBE TP PRN (10:17)
[2021-05-10] MEDS ORDERED: INSULIN (NOVOLOG) ASPART 100 UNITS/ML 10ML VIAL ONE ×3 (11:56→21:38)
[2021-05-10] MEDS: MELATONIN 5 MG TABLETS PO SCH (21:41)
[2021-05-10] MEDS: THIAMINE HCL 100 MG TABLET (FP) PO SCH (21:41)
[2021-05-10] MEDS: diphenhydrAMINE HCL 25 MG CAPSULE (FP) PO PRN (21:42)
[2021-05-11] MEDS: IBUPROFEN 400 MG TABLET (FP) PO PRN ×3 (02:43→21:40)
[2021-05-11] MEDS ORDERED: INSULIN (NOVOLOG) ASPART 100 UNITS/ML 10ML VIAL ONE ×4 (03:24→21:45)
[2021-05-11] MEDS: GABAPENTIN 300 MG CAPSULE PO SCH ×3 (06:57→21:39)
[2021-05-11] MEDS: FUROSEMIDE 40 MG TABLET (FP) PO SCH ×2 (06:58→14:39)
[2021-05-11] MEDS: INSULIN (LEVEMIR) 100 UNITS/ML UNITS SQ SCH ×2 (06:59→21:45)
[2021-05-11] MEDS: INSULIN SLIDING SCALE (NOVOLOG) 1 VIAL SQ SCH ×4 (06:59→21:45)
[2021-05-11] MEDS: METHOCARBAMOL 500 MG TABLET PO PRN ×4 (07:00→21:40)
[2021-05-11] MEDS: ACETAMINOPHEN 325 MG TABLET (FP) PO PRN ×2 (07:00→14:41)
[2021-05-11] MEDS: PRENATAL VITAMINS W/ FOLIC ACID TABLET (FP) PO SCH (10:25)
[2021-05-11] MEDS: NIFEdipine E.R. 30 MG TABLET PO SCH (10:25)
[2021-05-11] MEDS: SPIRONOLACTONE 25 MG TABLET PO SCH (10:27)
[2021-05-11] MEDS: FLUOCINONIDE 0.05% CREAM (60 GM TUBE) TP SCH ×2 (10:33→22:09)
[2021-05-11] MEDS: MELATONIN 5 MG TABLETS PO SCH (21:39)
[2021-05-11] MEDS: THIAMINE HCL 100 MG TABLET (FP) PO SCH (21:39)
[2021-05-11] MEDS: diphenhydrAMINE HCL 25 MG CAPSULE (FP) PO PRN (21:40)
[2021-05-12] MEDS: IBUPROFEN 400 MG TABLET (FP) PO PRN ×2 (02:46→21:45)
[2021-05-12] MEDS: FUROSEMIDE 40 MG TABLET (FP) PO SCH ×2 (07:05→13:32)
[2021-05-12] MEDS: GABAPENTIN 300 MG CAPSULE PO SCH ×3 (07:05→21:44)
[2021-05-12] MEDS: INSULIN SLIDING SCALE (NOVOLOG) 1 VIAL SQ SCH ×4 (07:06→21:46)
[2021-05-12] MEDS: INSULIN (LEVEMIR) 100 UNITS/ML UNITS SQ SCH ×2 (07:06→21:46)
[2021-05-12] MEDS: ACETAMINOPHEN 325 MG TABLET (FP) PO PRN ×3 (07:08→19:43)
[2021-05-12] MEDS: METHOCARBAMOL 500 MG TABLET PO PRN ×3 (07:08→21:44)
[2021-05-12] MEDS: NIFEdipine E.R. 30 MG TABLET PO SCH (10:27)
[2021-05-12] MEDS: PRENATAL VITAMINS W/ FOLIC ACID TABLET (FP) PO SCH (10:27)
[2021-05-12] MEDS: SPIRONOLACTONE 25 MG TABLET PO SCH (10:27)
[2021-05-12] MEDS: FLUOCINONIDE 0.05% CREAM (60 GM TUBE) TP SCH ×2 (10:29→21:48)
[2021-05-12] MEDS: COLLOIDAL OATMEAL 1 BAR EACH TP PRN (10:34)
[2021-05-12] MEDS: TOLNAFTATE 1% CREAM 15 GM TUBE TP PRN (10:34)
[2021-05-12] MEDS ORDERED: INSULIN (NOVOLOG) ASPART 100 UNITS/ML 10ML VIAL ONE ×2 (12:08→21:43)
[2021-05-12] MEDS: MELATONIN 5 MG TABLETS PO SCH (21:44)
[2021-05-12] MEDS: diphenhydrAMINE HCL 25 MG CAPSULE (FP) PO PRN (21:44)
[2021-05-12] MEDS: THIAMINE HCL 100 MG TABLET (FP) PO SCH (21:44)
[2021-05-13] MEDS: METHOCARBAMOL 500 MG TABLET PO PRN ×3 (07:02→17:58)
[2021-05-13] MEDS: FUROSEMIDE 40 MG TABLET (FP) PO SCH ×2 (07:02→14:59)
[2021-05-13] MEDS: ACETAMINOPHEN 325 MG TABLET (FP) PO PRN ×2 (07:02→10:04)
[2021-05-13] MEDS: GABAPENTIN 300 MG CAPSULE PO SCH ×3 (07:02→21:31)
[2021-05-13] MEDS: INSULIN (LEVEMIR) 100 UNITS/ML UNITS SQ SCH ×2 (07:11→21:43)
[2021-05-13] MEDS: INSULIN SLIDING SCALE (NOVOLOG) 1 VIAL SQ SCH ×4 (07:11→21:43)
[2021-05-13] MEDS ORDERED: INSULIN (NOVOLOG) ASPART 100 UNITS/ML 10ML VIAL ONE ×4 (07:14→21:44)
[2021-05-13] MEDS: PRENATAL VITAMINS W/ FOLIC ACID TABLET (FP) PO SCH (09:58)
[2021-05-13] MEDS: NIFEdipine E.R. 30 MG TABLET PO SCH (09:58)
[2021-05-13] MEDS: SPIRONOLACTONE 25 MG TABLET PO SCH (09:58)
[2021-05-13] MEDS: LIDOCAINE 2.5%/PRILOCAINE 2.5% 30 GRAM TUBE TP PRN ×2 (10:00→21:34)
[2021-05-13] MEDS: FLUOCINONIDE 0.05% CREAM (60 GM TUBE) TP SCH ×2 (10:00→21:32)
[2021-05-13] MEDS: TOLNAFTATE 1% CREAM 15 GM TUBE TP PRN (10:02)
[2021-05-13] MEDS: IBUPROFEN 400 MG TABLET (FP) PO PRN ×2 (15:01→21:31)
[2021-05-13] MEDS: diphenhydrAMINE HCL 25 MG CAPSULE (FP) PO PRN (21:31)
[2021-05-13] MEDS: THIAMINE HCL 100 MG TABLET (FP) PO SCH (21:31)
[2021-05-13] MEDS: MELATONIN 5 MG TABLETS PO SCH (21:32)
[2021-05-14] MEDS: FUROSEMIDE 40 MG TABLET (FP) PO SCH (07:05)
[2021-05-14] MEDS: GABAPENTIN 300 MG CAPSULE PO SCH (07:05)
[2021-05-14] MEDS: INSULIN (LEVEMIR) 100 UNITS/ML UNITS SQ SCH (07:05)
[2021-05-14] MEDS: METHOCARBAMOL 500 MG TABLET PO PRN (07:07)
[2021-05-14] MEDS: TOLNAFTATE 1% CREAM 15 GM TUBE TP PRN (07:07)
[2021-05-14] MEDS: IBUPROFEN 400 MG TABLET (FP) PO PRN (07:08)
[2021-05-14 07:18] VITALS: BP 130/75; PULSE 85; TEMP 98.1
[2021-05-14] MEDS ORDERED: INSULIN (NOVOLOG) ASPART 100 UNITS/ML 10ML VIAL ONE (07:23)
[2021-05-14] MEDS: INSULIN SLIDING SCALE (NOVOLOG) 1 VIAL SQ SCH (07:33)
== END 2021-05-14 08:40 | disposition home or self-care (01) | DRG 772 ==
LOC: YASAS 11:43 → Y3W 11:45
PROVIDERS: ADMIT Allergy & Immunology; ATTEND Allergy & Immunology
PROC: HZ42ZZZ Group Counseling for Substance Abuse Treatment, Cognitive-Behavioral (ICD-10-PCS; principal; 2021-05-03)
DX: F11.20 Opioid dependence, uncomplicated (principal); F10.20 Alcohol dependence, uncomplicated; F14.20 Cocaine dependence, uncomplicated; F13.20 Sedative, hypnotic or anxiolytic dependence, uncomplicated; F12.20 Cannabis dependence, uncomplicated; I10 Essential (primary) hypertension; E11.9 Type 2 diabetes mellitus without complications; Z79.4 Long term (current) use of insulin; R60.0 Localized edema; Z88.0 Allergy status to penicillin; Z91.018 Allergy to other foods
CPT/HCPCS: 82962

== ENCOUNTER 2021-11-17 13:51 | Inpatient (IN) | payer OTHER ==
[2021-11-17] MEDS ORDERED: hydrOXYzine PAMOATE 25 MG CAPSULE (FP) PO PRN (17:17)
[2021-11-17] MEDS ORDERED: DICYCLOMINE HCL 10 MG CAPSULE PO PRN (17:17)
[2021-11-17] MEDS ORDERED: NICOTINE POLACRILEX 2 MG GUM BUC PRN (17:17)
[2021-11-17] MEDS ORDERED: BISMUTH SUBSALICYLATE 524 MG/30 ML PO PRN (17:17)
[2021-11-17] MEDS ORDERED: ACETAMINOPHEN 325 MG TABLET (FP) PO PRN (17:17)
[2021-11-17] MEDS ORDERED: MAG HYDROX/AL HYDROX/SIMETH 30 ML UNIT-DOSE CUP PO PRN (17:17)
[2021-11-17] MEDS ORDERED: MENTHOL/PHENOL 1 EACH UD MM PRN (17:17)
[2021-11-17] MEDS ORDERED: ONDANSETRON *ODT* 4 MG TABLET SL PRN (17:17)
[2021-11-17] MEDS ORDERED: MAGNESIUM CITRATE 300 ML BOTTLE PO PRN (17:17)
[2021-11-17] MEDS ORDERED: MAGNESIUM HYDROX 2400MG/30ML ORAL SUSPENSION 30 ML CUP PO PRN (17:17)
[2021-11-17] MEDS ORDERED: MELATONIN 5 MG TABLETS PO PRN (17:17)
[2021-11-17] MEDS ORDERED: diazePAM 5 MG TABLET PO PRN (17:25)
[2021-11-17] MEDS ORDERED: INSULIN (NOVOLOG) ASPART 100 UNITS/ML 10ML VIAL SQ SCH (17:30)
[2021-11-17 19:42] VITALS: BMI 27.8
[2021-11-17] MEDS: diazePAM 5 MG TABLET PO SCH (22:36)
[2021-11-17] MEDS: GABAPENTIN 400 MG CAPSULE PO SCH (22:36)
[2021-11-17] MEDS: THIAMINE HCL 100 MG TABLET (FP) PO SCH (22:36)
[2021-11-17] MEDS: INSULIN (LEVEMIR) 100 UNITS/ML UNITS SQ SCH (23:09)
[2021-11-18] MEDS: GABAPENTIN 400 MG CAPSULE PO SCH ×3 (06:08→23:04)
[2021-11-18] MEDS: FUROSEMIDE 40 MG TABLET (FP) PO SCH ×2 (06:08→13:35)
[2021-11-18] MEDS: diazePAM 5 MG TABLET PO SCH ×4 (06:10→23:05)
[2021-11-18] MEDS: ACETAMINOPHEN 325 MG TABLET (FP) PO PRN ×2 (06:11→23:07)
[2021-11-18] MEDS ORDERED: INSULIN (NOVOLOG) ASPART 100 UNITS/ML 10ML VIAL ONE ×2 (08:11→11:54)
[2021-11-18] MEDS: INSULIN SLIDING SCALE (NOVOLOG) 1 VIAL SQ SCH ×4 (08:11→17:11)
[2021-11-18] MEDS: PRENATAL VITAMINS W/ FOLIC ACID TABLET (FP) PO SCH (10:34)
[2021-11-18] MEDS: INSULIN (LEVEMIR) 100 UNITS/ML UNITS SQ SCH ×2 (10:42→23:03)
[2021-11-18] MEDS: METHOCARBAMOL 500 MG TABLET PO PRN ×2 (10:43→23:06)
[2021-11-18 12:14] LABS: BLOOD UREA NITROGEN 12.8 mg/dL (7-18); CALCIUM 8.7 mg/dL (8.5-10.1)
[2021-11-18 12:15] LABS: ALBUMIN 3.5 g/dl (3.4-5.0)
[2021-11-18 12:17] LABS: CREATININE 1.1 mg/dL (0.55-1.3); HEMATOCRIT 46.1 % (35.4-49); HEMOGLOBIN 15.5 GM/dL (11.7-16.9); MCHC 33.7 g/dl (32.0-35.9); MEAN CELL VOLUME 92.2 fl (80-96); MEAN PLT VOLUME 8.9 fl (7.5-11.1); PLATELET COUNT 240 10^3/uL (134-434); RDW 14.1 % (11.9-15.9)
[2021-11-18 12:19] LABS: BILIRUBIN,TOTAL 1.1 mg/dL (0.2-1); TOT PROT 7.3 g/dl (6.4-8.2)
[2021-11-18] MEDS: FLUOCINONIDE 0.05% CREAM (15 GM TUBE) TP SCH ×2 (14:17→23:03)
[2021-11-18] MEDS: LOPERAMIDE HCL 2 MG CAPSULE PO PRN (20:47)
[2021-11-18] MEDS: THIAMINE HCL 100 MG TABLET (FP) PO SCH (23:04)
[2021-11-18] MEDS: diphenhydrAMINE HCL 25 MG CAPSULE (FP) PO PRN (23:14)
[2021-11-19] MEDS: GABAPENTIN 400 MG CAPSULE PO SCH ×3 (05:43→22:34)
[2021-11-19] MEDS: diazePAM 5 MG TABLET PO SCH ×3 (05:43→22:35)
[2021-11-19] MEDS: ACETAMINOPHEN 325 MG TABLET (FP) PO PRN ×3 (05:44→18:09)
[2021-11-19] MEDS: METHOCARBAMOL 500 MG TABLET PO PRN ×3 (05:45→22:35)
[2021-11-19] MEDS: LOPERAMIDE HCL 2 MG CAPSULE PO PRN (06:46)
[2021-11-19] MEDS: FUROSEMIDE 40 MG TABLET (FP) PO SCH (07:00)
[2021-11-19] MEDS: INSULIN SLIDING SCALE (NOVOLOG) 1 VIAL SQ SCH ×3 (07:34→18:04)
[2021-11-19] MEDS ORDERED: INSULIN (NOVOLOG) ASPART 100 UNITS/ML 10ML VIAL ONE ×2 (07:37→11:46)
[2021-11-19] MEDS: PRENATAL VITAMINS W/ FOLIC ACID TABLET (FP) PO SCH (10:32)
[2021-11-19] MEDS: METHYL SALICYLATE/MENTHOL OINT 30 GM TUBE TP SCH ×2 (11:39→22:36)
[2021-11-19] MEDS: FLUOCINONIDE 0.05% CREAM (15 GM TUBE) TP SCH ×2 (11:57→22:34)
[2021-11-19] MEDS: INSULIN (LEVEMIR) 100 UNITS/ML UNITS SQ SCH ×2 (12:01→22:41)
[2021-11-19] MEDS: TOLNAFTATE 1% CREAM 15 GM TUBE TP SCH ×2 (12:47→22:34)
[2021-11-19] MEDS: FUROSEMIDE 20 MG TABLET (FP) PO SCH (13:56)
[2021-11-19] MEDS: THIAMINE HCL 100 MG TABLET (FP) PO SCH (22:34)
[2021-11-19] MEDS: diphenhydrAMINE HCL 25 MG CAPSULE (FP) PO PRN (22:41)
[2021-11-20] MEDS: GABAPENTIN 400 MG CAPSULE PO SCH ×3 (05:52→22:18)
[2021-11-20] MEDS: diazePAM 5 MG TABLET PO SCH ×2 (05:52→17:00)
[2021-11-20] MEDS: FUROSEMIDE 20 MG TABLET (FP) PO SCH ×2 (05:53→14:30)
[2021-11-20] MEDS: ACETAMINOPHEN 325 MG TABLET (FP) PO PRN ×3 (05:54→22:20)
[2021-11-20] MEDS: INSULIN SLIDING SCALE (NOVOLOG) 1 VIAL SQ SCH ×3 (07:35→16:48)
[2021-11-20] MEDS: METHYL SALICYLATE/MENTHOL OINT 30 GM TUBE TP SCH ×2 (10:13→22:19)
[2021-11-20] MEDS: PRENATAL VITAMINS W/ FOLIC ACID TABLET (FP) PO SCH (10:13)
[2021-11-20] MEDS: FLUOCINONIDE 0.05% CREAM (15 GM TUBE) TP SCH ×2 (10:14→22:19)
[2021-11-20] MEDS: TOLNAFTATE 1% CREAM 15 GM TUBE TP SCH ×2 (10:14→22:24)
[2021-11-20] MEDS: METHOCARBAMOL 500 MG TABLET PO PRN ×2 (10:16→22:23)
[2021-11-20] MEDS ORDERED: INSULIN (NOVOLOG) ASPART 100 UNITS/ML 10ML VIAL ONE ×2 (11:23→16:50)
[2021-11-20] MEDS: THIAMINE HCL 100 MG TABLET (FP) PO SCH (22:18)
[2021-11-20] MEDS: diphenhydrAMINE HCL 25 MG CAPSULE (FP) PO PRN (22:18)
[2021-11-20] MEDS: INSULIN (LEVEMIR) 100 UNITS/ML UNITS SQ SCH (22:19)
[2021-11-21 00:06] LABS: SARS-CoV-2 NAA Not Detected (Not Detected)
[2021-11-21] MEDS: METHOCARBAMOL 500 MG TABLET PO PRN ×3 (04:20→22:24)
[2021-11-21] MEDS: ACETAMINOPHEN 325 MG TABLET (FP) PO PRN ×3 (04:21→20:04)
[2021-11-21] MEDS: GABAPENTIN 400 MG CAPSULE PO SCH ×3 (05:56→22:18)
[2021-11-21] MEDS: FUROSEMIDE 20 MG TABLET (FP) PO SCH ×2 (05:56→14:27)
[2021-11-21] MEDS ORDERED: diazePAM 5 MG TABLET PO ONE (06:00)
[2021-11-21] MEDS: INSULIN SLIDING SCALE (NOVOLOG) 1 VIAL SQ SCH ×3 (07:28→17:00)
[2021-11-21] MEDS ORDERED: INSULIN (NOVOLOG) ASPART 100 UNITS/ML 10ML VIAL ONE ×3 (07:30→17:12)
[2021-11-21] MEDS: TOLNAFTATE 1% CREAM 15 GM TUBE TP SCH ×2 (10:27→23:05)
[2021-11-21] MEDS: FLUOCINONIDE 0.05% CREAM (15 GM TUBE) TP SCH ×2 (10:27→23:05)
[2021-11-21] MEDS: METHYL SALICYLATE/MENTHOL OINT 30 GM TUBE TP SCH ×2 (10:27→23:05)
[2021-11-21] MEDS: PRENATAL VITAMINS W/ FOLIC ACID TABLET (FP) PO SCH (10:27)
[2021-11-21] MEDS: THIAMINE HCL 100 MG TABLET (FP) PO SCH (22:18)
[2021-11-21] MEDS: diphenhydrAMINE HCL 25 MG CAPSULE (FP) PO PRN (22:25)
[2021-11-21] MEDS: INSULIN (LEVEMIR) 100 UNITS/ML UNITS SQ SCH (22:28)
[2021-11-22] MEDS: FUROSEMIDE 20 MG TABLET (FP) PO SCH ×2 (06:56→13:31)
[2021-11-22] MEDS: GABAPENTIN 400 MG CAPSULE PO SCH ×3 (06:56→22:43)
[2021-11-22] MEDS: ACETAMINOPHEN 325 MG TABLET (FP) PO PRN ×3 (06:56→19:19)
[2021-11-22] MEDS: METHOCARBAMOL 500 MG TABLET PO PRN ×3 (06:58→22:53)
[2021-11-22] MEDS: INSULIN SLIDING SCALE (NOVOLOG) 1 VIAL SQ SCH ×3 (08:21→17:04)
[2021-11-22] MEDS ORDERED: INSULIN (NOVOLOG) ASPART 100 UNITS/ML 10ML VIAL ONE ×2 (08:23→11:28)
[2021-11-22] MEDS: METHYL SALICYLATE/MENTHOL OINT 30 GM TUBE TP SCH ×2 (10:24→22:44)
[2021-11-22] MEDS: FLUOCINONIDE 0.05% CREAM (15 GM TUBE) TP SCH ×2 (10:26→22:44)
[2021-11-22] MEDS: PRENATAL VITAMINS W/ FOLIC ACID TABLET (FP) PO SCH (10:26)
[2021-11-22] MEDS: TOLNAFTATE 1% CREAM 15 GM TUBE TP SCH ×2 (10:27→22:44)
[2021-11-22] MEDS ORDERED: HYDROCORTISONE 1% TOPICAL CREAM 30 GM TUBE TP ONE (10:30)
[2021-11-22] MEDS ORDERED: COLLOIDAL OATMEAL 1 BAR EACH TP PRN (16:08)
[2021-11-22] MEDS ORDERED: INSULIN (NOVOLOG) ASPART 100 UNITS/ML 10ML VIAL SQ ONE (18:46)
[2021-11-22] MEDS: INSULIN (LEVEMIR) 100 UNITS/ML UNITS SQ SCH (22:38)
[2021-11-22] MEDS: THIAMINE HCL 100 MG TABLET (FP) PO SCH (22:43)
[2021-11-23] MEDS: GABAPENTIN 400 MG CAPSULE PO SCH (06:04)
[2021-11-23] MEDS: FUROSEMIDE 20 MG TABLET (FP) PO SCH (06:04)
[2021-11-23] MEDS: METHOCARBAMOL 500 MG TABLET PO PRN (06:18)
[2021-11-23] MEDS: ACETAMINOPHEN 325 MG TABLET (FP) PO PRN (06:18)
[2021-11-23] MEDS: INSULIN SLIDING SCALE (NOVOLOG) 1 VIAL SQ SCH ×2 (07:55→11:03)
[2021-11-23] MEDS ORDERED: INSULIN (NOVOLOG) ASPART 100 UNITS/ML 10ML VIAL ONE ×2 (07:59→11:05)
[2021-11-23 09:28] VITALS: BP 118/70; PULSE 95; TEMP 98.1
[2021-11-23] MEDS: PRENATAL VITAMINS W/ FOLIC ACID TABLET (FP) PO SCH (10:56)
[2021-11-23] MEDS: METHYL SALICYLATE/MENTHOL OINT 30 GM TUBE TP SCH (10:57)
[2021-11-23] MEDS: FLUOCINONIDE 0.05% CREAM (15 GM TUBE) TP SCH (10:57)
[2021-11-23] MEDS: TOLNAFTATE 1% CREAM 15 GM TUBE TP SCH (10:59)
== END 2021-11-23 13:08 | disposition other institution (70) | DRG 774 ==
LOC: YASAS 13:51 → Y6N 18:44 → UNDOADMIN 18:44 → Y6N 20:01
PROVIDERS: ADMIT Allergy & Immunology; ATTEND Allergy & Immunology
PROC: HZ2ZZZZ Detoxification Services for Substance Abuse Treatment (ICD-10-PCS; principal; 2021-11-17)
DX: F10.230 Alcohol dependence with withdrawal, uncomplicated (principal); F14.20 Cocaine dependence, uncomplicated; F17.210 Nicotine dependence, cigarettes, uncomplicated; G62.9 Polyneuropathy, unspecified; E11.9 Type 2 diabetes mellitus without complications; Z79.4 Long term (current) use of insulin; G47.00 Insomnia, unspecified; B35.6 Tinea cruris; L25.9 Unspecified contact dermatitis, unspecified cause; M17.11 Unilateral primary osteoarthritis, right knee; Z99.89 Dependence on other enabling machines and devices; Z88.0 Allergy status to penicillin; Z88.6 Allergy status to analgesic agent; Z91.014 Allergy to mammalian meats
CPT/HCPCS: 36415; 80053; 82962; 85027; 86780; C9803-CS; U0003; U0005

== ENCOUNTER 2021-11-23 13:29 | Inpatient (IN) | payer OTHER ==
[2021-11-23] MEDS ORDERED: MAGNESIUM CITRATE 300 ML BOTTLE PO PRN (15:05)
[2021-11-23] MEDS ORDERED: MAG HYDROX/AL HYDROX/SIMETH 30 ML UNIT-DOSE CUP PO PRN (15:05)
[2021-11-23] MEDS ORDERED: P-EPHED 60MG/TRIPROLIDI 2.5MG TABLET PO PRN (15:05)
[2021-11-23] MEDS ORDERED: LOPERAMIDE HCL 2 MG CAPSULE PO PRN (15:05)
[2021-11-23] MEDS ORDERED: hydrOXYzine PAMOATE 25 MG CAPSULE (FP) PO PRN (15:05)
[2021-11-23] MEDS ORDERED: guaiFENesin 200 MG/10 ML 10 ML UNIT-DOSE CUPS PO PRN (15:05)
[2021-11-23] MEDS ORDERED: BENZOCAINE/MENTHOL (CHLORASEPTIC ) LOZENGE MM PRN (15:05)
[2021-11-23] MEDS ORDERED: MAGNESIUM HYDROX 2400MG/30ML ORAL SUSPENSION 30 ML CUP PO PRN (15:05)
[2021-11-23] MEDS: ACETAMINOPHEN 325 MG TABLET (FP) PO PRN (16:51)
[2021-11-23] MEDS ORDERED: INSULIN (NOVOLOG) ASPART 100 UNITS/ML 10ML VIAL ONE (17:03)
[2021-11-23] MEDS: INSULIN SLIDING SCALE (NOVOLOG) 1 VIAL SQ SCH ×2 (17:05→21:44)
[2021-11-23] MEDS: ASPIRIN COATED 81 MG TABLET.EC PO SCH (18:35)
[2021-11-23] MEDS: THIAMINE HCL 100 MG TABLET (FP) PO SCH (21:34)
[2021-11-23] MEDS: MELATONIN 5 MG TABLETS PO PRN (21:34)
[2021-11-23] MEDS: METHYL SALICYLATE/MENTHOL OINT 30 GM TUBE TP SCH (21:35)
[2021-11-23] MEDS: GABAPENTIN 400 MG CAPSULE PO SCH (21:37)
[2021-11-23] MEDS: TOLNAFTATE 1% CREAM 15 GM TUBE TP SCH (21:39)
[2021-11-23] MEDS: FLUOCINONIDE 0.05% CREAM (15 GM TUBE) TP SCH (21:40)
[2021-11-23] MEDS: INSULIN (LEVEMIR) 100 UNITS/ML UNITS SQ SCH (21:44)
[2021-11-23] MEDS ORDERED: INSULIN (LEVEMIR) 100 UNITS/ML UNITS SQ ONE (21:52)
[2021-11-23] MEDS ORDERED: PATIENT'S OWN MEDICATION (NON-FORMULARY) (Insulin Glargine,Hum.Rec.Anlog 100 UNITS/ML Ins) SQ SCH (22:00)
[2021-11-23] MEDS: ATORVASTATIN CA 20 MG TABLET (FP) PO SCH (22:01)
[2021-11-24] MEDS: ACETAMINOPHEN 325 MG TABLET (FP) PO PRN ×3 (01:45→19:40)
[2021-11-24] MEDS: INSULIN SLIDING SCALE (NOVOLOG) 1 VIAL SQ SCH ×4 (06:51→21:46)
[2021-11-24] MEDS: FUROSEMIDE 20 MG TABLET (FP) PO SCH ×2 (06:52→13:51)
[2021-11-24] MEDS: GABAPENTIN 400 MG CAPSULE PO SCH ×3 (06:52→21:45)
[2021-11-24] MEDS ORDERED: INSULIN (NOVOLOG) ASPART 100 UNITS/ML 10ML VIAL ONE ×5 (06:52→21:59)
[2021-11-24] MEDS: METHYL SALICYLATE/MENTHOL OINT 30 GM TUBE TP SCH ×2 (09:56→21:50)
[2021-11-24] MEDS: FLUOCINONIDE 0.05% CREAM (15 GM TUBE) TP SCH ×2 (09:57→21:51)
[2021-11-24] MEDS: ASPIRIN COATED 81 MG TABLET.EC PO SCH (09:57)
[2021-11-24] MEDS: CILOSTAZOL 50 MG TABLET PO SCH (09:58)
[2021-11-24] MEDS: METHOCARBAMOL 500 MG TABLET PO SCH ×4 (09:59→21:45)
[2021-11-24] MEDS: PRENATAL VITAMINS W/ FOLIC ACID TABLET (FP) PO SCH (09:59)
[2021-11-24] MEDS: TOLNAFTATE 1% CREAM 15 GM TUBE TP SCH ×2 (10:00→21:51)
[2021-11-24] MEDS ORDERED: COLLOIDAL OATMEAL 1 BAR EACH TP PRN (10:22)
[2021-11-24] MEDS: TOLNAFTATE 1% POWDER 45 GM POW TP SCH ×2 (10:50→21:52)
[2021-11-24] MEDS: MELATONIN 5 MG TABLETS PO PRN (21:45)
[2021-11-24] MEDS: THIAMINE HCL 100 MG TABLET (FP) PO SCH (21:45)
[2021-11-24] MEDS: ATORVASTATIN CA 20 MG TABLET (FP) PO SCH (21:45)
[2021-11-24] MEDS: INSULIN (LEVEMIR) 100 UNITS/ML UNITS SQ SCH (21:46)
[2021-11-24] MEDS ORDERED: INSULIN (LEVEMIR) 100 UNITS/ML UNITS SQ ONE (21:59)
[2021-11-25] MEDS ORDERED: INSULIN (NOVOLOG) ASPART 100 UNITS/ML 10ML VIAL ONE ×4 (06:43→22:19)
[2021-11-25] MEDS: INSULIN SLIDING SCALE (NOVOLOG) 1 VIAL SQ SCH ×4 (06:43→21:38)
[2021-11-25] MEDS: GABAPENTIN 400 MG CAPSULE PO SCH ×3 (06:46→21:38)
[2021-11-25] MEDS: FUROSEMIDE 20 MG TABLET (FP) PO SCH ×2 (06:46→13:32)
[2021-11-25] MEDS: ACETAMINOPHEN 325 MG TABLET (FP) PO PRN (06:48)
[2021-11-25] MEDS: METHYL SALICYLATE/MENTHOL OINT 30 GM TUBE TP SCH ×2 (09:22→21:45)
[2021-11-25] MEDS: FLUOCINONIDE 0.05% CREAM (15 GM TUBE) TP SCH ×2 (09:24→21:46)
[2021-11-25] MEDS: ASPIRIN COATED 81 MG TABLET.EC PO SCH (09:24)
[2021-11-25] MEDS: CILOSTAZOL 50 MG TABLET PO SCH (09:25)
[2021-11-25] MEDS: PRENATAL VITAMINS W/ FOLIC ACID TABLET (FP) PO SCH (09:26)
[2021-11-25] MEDS: TOLNAFTATE 1% CREAM 15 GM TUBE TP SCH ×2 (09:26→21:49)
[2021-11-25] MEDS: METHOCARBAMOL 500 MG TABLET PO SCH ×4 (09:26→21:38)
[2021-11-25] MEDS: TOLNAFTATE 1% POWDER 45 GM POW TP SCH ×2 (09:27→21:48)
[2021-11-25] MEDS: THIAMINE HCL 100 MG TABLET (FP) PO SCH (21:38)
[2021-11-25] MEDS: ATORVASTATIN CA 20 MG TABLET (FP) PO SCH (21:38)
[2021-11-25] MEDS: INSULIN (LEVEMIR) 100 UNITS/ML UNITS SQ SCH (21:40)
[2021-11-25] MEDS: diphenhydrAMINE HCL 25 MG CAPSULE (FP) PO PRN (21:45)
[2021-11-26] MEDS: GABAPENTIN 400 MG CAPSULE PO SCH ×3 (06:26→22:20)
[2021-11-26] MEDS ORDERED: INSULIN (NOVOLOG) ASPART 100 UNITS/ML 10ML VIAL ONE ×3 (07:07→16:44)
[2021-11-26] MEDS: FUROSEMIDE 20 MG TABLET (FP) PO SCH ×2 (07:08→14:58)
[2021-11-26] MEDS: INSULIN SLIDING SCALE (NOVOLOG) 1 VIAL SQ SCH ×4 (07:09→22:18)
[2021-11-26] MEDS: METHOCARBAMOL 500 MG TABLET PO SCH ×4 (10:32→22:22)
[2021-11-26] MEDS: PRENATAL VITAMINS W/ FOLIC ACID TABLET (FP) PO SCH (10:32)
[2021-11-26] MEDS: ASPIRIN COATED 81 MG TABLET.EC PO SCH (10:32)
[2021-11-26] MEDS: ACETAMINOPHEN 325 MG TABLET (FP) PO PRN ×3 (10:34→22:22)
[2021-11-26] MEDS: CILOSTAZOL 50 MG TABLET PO SCH (10:34)
[2021-11-26] MEDS: FLUOCINONIDE 0.05% CREAM (15 GM TUBE) TP SCH ×2 (10:35→22:12)
[2021-11-26] MEDS: METHYL SALICYLATE/MENTHOL OINT 30 GM TUBE TP SCH ×2 (10:37→22:12)
[2021-11-26] MEDS: TOLNAFTATE 1% POWDER 45 GM POW TP SCH ×2 (10:37→22:15)
[2021-11-26] MEDS: TOLNAFTATE 1% CREAM 15 GM TUBE TP SCH ×2 (10:37→22:15)
[2021-11-26 14:08] LABS: SARS-CoV-2 NAA Not Detected (Not Detected)
[2021-11-26] MEDS: INSULIN (LEVEMIR) 100 UNITS/ML UNITS SQ SCH (22:12)
[2021-11-26] MEDS: THIAMINE HCL 100 MG TABLET (FP) PO SCH (22:20)
[2021-11-26] MEDS: ATORVASTATIN CA 20 MG TABLET (FP) PO SCH (22:20)
[2021-11-26] MEDS: diphenhydrAMINE HCL 25 MG CAPSULE (FP) PO PRN (22:22)
[2021-11-27] MEDS: FUROSEMIDE 20 MG TABLET (FP) PO SCH ×2 (06:47→15:33)
[2021-11-27] MEDS: GABAPENTIN 400 MG CAPSULE PO SCH ×3 (06:47→21:10)
[2021-11-27] MEDS: ACETAMINOPHEN 325 MG TABLET (FP) PO PRN ×2 (06:48→15:34)
[2021-11-27] MEDS ORDERED: INSULIN (NOVOLOG) ASPART 100 UNITS/ML 10ML VIAL ONE ×3 (06:53→16:38)
[2021-11-27] MEDS: INSULIN SLIDING SCALE (NOVOLOG) 1 VIAL SQ SCH ×4 (06:56→21:17)
[2021-11-27] MEDS: PRENATAL VITAMINS W/ FOLIC ACID TABLET (FP) PO SCH (09:45)
[2021-11-27] MEDS: ASPIRIN COATED 81 MG TABLET.EC PO SCH (09:45)
[2021-11-27] MEDS: METHOCARBAMOL 500 MG TABLET PO SCH ×4 (09:47→21:11)
[2021-11-27] MEDS: CILOSTAZOL 50 MG TABLET PO SCH (09:49)
[2021-11-27] MEDS: FLUOCINONIDE 0.05% CREAM (15 GM TUBE) TP SCH ×2 (09:51→21:17)
[2021-11-27] MEDS: METHYL SALICYLATE/MENTHOL OINT 30 GM TUBE TP SCH ×2 (09:51→21:13)
[2021-11-27] MEDS: TOLNAFTATE 1% CREAM 15 GM TUBE TP SCH ×2 (09:52→21:18)
[2021-11-27] MEDS: TOLNAFTATE 1% POWDER 45 GM POW TP SCH ×2 (09:52→21:18)
[2021-11-27] MEDS: COLLOIDAL OATMEAL 1 BAR EACH TP SCH (11:57)
[2021-11-27] MEDS: HYDROCORTISONE 1% TOPICAL OINT 30 GM TUBE TP SCH ×2 (15:36→21:17)
[2021-11-27] MEDS: ATORVASTATIN CA 20 MG TABLET (FP) PO SCH (21:10)
[2021-11-27] MEDS: THIAMINE HCL 100 MG TABLET (FP) PO SCH (21:10)
[2021-11-27] MEDS: diphenhydrAMINE HCL 25 MG CAPSULE (FP) PO PRN (21:10)
[2021-11-27] MEDS: MELATONIN 5 MG TABLETS PO PRN (21:10)
[2021-11-27] MEDS: INSULIN (LEVEMIR) 100 UNITS/ML UNITS SQ SCH (21:16)
[2021-11-28] MEDS: GABAPENTIN 400 MG CAPSULE PO SCH ×3 (06:15→21:33)
[2021-11-28] MEDS: FUROSEMIDE 20 MG TABLET (FP) PO SCH ×2 (06:15→13:00)
[2021-11-28] MEDS: ACETAMINOPHEN 325 MG TABLET (FP) PO PRN ×3 (06:16→18:49)
[2021-11-28] MEDS ORDERED: INSULIN (NOVOLOG) ASPART 100 UNITS/ML 10ML VIAL ONE ×3 (06:22→16:29)
[2021-11-28] MEDS: METHOCARBAMOL 500 MG TABLET PO PRN ×3 (07:44→21:36)
[2021-11-28] MEDS: INSULIN SLIDING SCALE (NOVOLOG) 1 VIAL SQ SCH ×4 (07:46→21:39)
[2021-11-28] MEDS: COLLOIDAL OATMEAL 1 BAR EACH TP SCH (09:50)
[2021-11-28] MEDS: METHYL SALICYLATE/MENTHOL OINT 30 GM TUBE TP SCH ×2 (09:50→21:39)
[2021-11-28] MEDS: HYDROCORTISONE 1% TOPICAL OINT 30 GM TUBE TP SCH ×2 (09:53→21:39)
[2021-11-28] MEDS: FLUOCINONIDE 0.05% CREAM (15 GM TUBE) TP SCH ×2 (09:53→21:39)
[2021-11-28] MEDS: ASPIRIN COATED 81 MG TABLET.EC PO SCH (09:54)
[2021-11-28] MEDS: CILOSTAZOL 50 MG TABLET PO SCH (09:54)
[2021-11-28] MEDS: PRENATAL VITAMINS W/ FOLIC ACID TABLET (FP) PO SCH (09:54)
[2021-11-28] MEDS: TOLNAFTATE 1% CREAM 15 GM TUBE TP SCH ×2 (09:56→21:40)
[2021-11-28] MEDS: TOLNAFTATE 1% POWDER 45 GM POW TP SCH ×2 (09:56→21:40)
[2021-11-28] MEDS: THIAMINE HCL 100 MG TABLET (FP) PO SCH (21:33)
[2021-11-28] MEDS: MELATONIN 5 MG TABLETS PO PRN (21:33)
[2021-11-28] MEDS: diphenhydrAMINE HCL 25 MG CAPSULE (FP) PO PRN (21:33)
[2021-11-28] MEDS: ATORVASTATIN CA 20 MG TABLET (FP) PO SCH (21:39)
[2021-11-28] MEDS: INSULIN (LEVEMIR) 100 UNITS/ML UNITS SQ SCH (21:49)
[2021-11-28] MEDS ORDERED: INSULIN (LEVEMIR) 100 UNITS/ML UNITS SQ ONE (22:20)
[2021-11-29] MEDS: ACETAMINOPHEN 325 MG TABLET (FP) PO PRN ×3 (03:51→21:54)
[2021-11-29] MEDS: METHOCARBAMOL 500 MG TABLET PO PRN ×3 (03:54→21:54)
[2021-11-29] MEDS: FUROSEMIDE 20 MG TABLET (FP) PO SCH ×2 (06:29→13:39)
[2021-11-29] MEDS: GABAPENTIN 400 MG CAPSULE PO SCH ×3 (06:30→21:52)
[2021-11-29] MEDS ORDERED: INSULIN (NOVOLOG) ASPART 100 UNITS/ML 10ML VIAL ONE ×3 (07:04→21:54)
[2021-11-29] MEDS: INSULIN SLIDING SCALE (NOVOLOG) 1 VIAL SQ SCH ×4 (07:55→21:47)
[2021-11-29] MEDS: PRENATAL VITAMINS W/ FOLIC ACID TABLET (FP) PO SCH (09:53)
[2021-11-29] MEDS: CILOSTAZOL 50 MG TABLET PO SCH (09:53)
[2021-11-29] MEDS: ASPIRIN COATED 81 MG TABLET.EC PO SCH (09:53)
[2021-11-29] MEDS: COLLOIDAL OATMEAL 1 BAR EACH TP SCH (09:55)
[2021-11-29] MEDS: TOLNAFTATE 1% CREAM 15 GM TUBE TP SCH ×2 (09:57→22:06)
[2021-11-29] MEDS: TOLNAFTATE 1% POWDER 45 GM POW TP SCH ×2 (09:57→21:57)
[2021-11-29] MEDS: HYDROCORTISONE 1% TOPICAL OINT 30 GM TUBE TP SCH ×2 (09:57→22:06)
[2021-11-29] MEDS: FLUOCINONIDE 0.05% CREAM (15 GM TUBE) TP SCH ×2 (09:57→22:02)
[2021-11-29] MEDS: METHYL SALICYLATE/MENTHOL OINT 30 GM TUBE TP SCH ×2 (09:57→22:04)
[2021-11-29] MEDS ORDERED: COLLOIDAL OATMEAL 1 BAR EACH TP PRN (11:24)
[2021-11-29] MEDS: LIDOCAINE 5% TOPICAL PATCH TP SCH (12:40)
[2021-11-29] MEDS: INSULIN (LEVEMIR) 100 UNITS/ML UNITS SQ SCH (21:49)
[2021-11-29] MEDS: THIAMINE HCL 100 MG TABLET (FP) PO SCH (21:52)
[2021-11-29] MEDS: ATORVASTATIN CA 20 MG TABLET (FP) PO SCH (21:52)
[2021-11-29] MEDS: LIDOCAINE PATCH REMOVAL MC SCH (22:07)
[2021-11-30] MEDS: FUROSEMIDE 20 MG TABLET (FP) PO SCH ×2 (06:33→14:16)
[2021-11-30] MEDS: GABAPENTIN 400 MG CAPSULE PO SCH ×3 (06:33→22:01)
[2021-11-30] MEDS: ACETAMINOPHEN 325 MG TABLET (FP) PO PRN ×3 (06:36→20:30)
[2021-11-30] MEDS: METHOCARBAMOL 500 MG TABLET PO PRN ×3 (06:36→20:30)
[2021-11-30] MEDS: INSULIN SLIDING SCALE (NOVOLOG) 1 VIAL SQ SCH ×4 (06:40→22:06)
[2021-11-30] MEDS: ASPIRIN COATED 81 MG TABLET.EC PO SCH (10:08)
[2021-11-30] MEDS: CILOSTAZOL 50 MG TABLET PO SCH (10:08)
[2021-11-30] MEDS: PRENATAL VITAMINS W/ FOLIC ACID TABLET (FP) PO SCH (10:09)
[2021-11-30] MEDS: TOLNAFTATE 1% CREAM 15 GM TUBE TP SCH ×2 (10:10→22:20)
[2021-11-30] MEDS: FLUOCINONIDE 0.05% CREAM (15 GM TUBE) TP SCH ×2 (10:12→22:20)
[2021-11-30] MEDS: HYDROCORTISONE 1% TOPICAL OINT 30 GM TUBE TP SCH ×2 (10:12→22:11)
[2021-11-30] MEDS: METHYL SALICYLATE/MENTHOL OINT 30 GM TUBE TP SCH ×2 (10:12→22:11)
[2021-11-30] MEDS: TOLNAFTATE 1% POWDER 45 GM POW TP SCH ×2 (10:12→22:21)
[2021-11-30] MEDS: LIDOCAINE 5% TOPICAL PATCH TP SCH (10:13)
[2021-11-30] MEDS ORDERED: INSULIN (NOVOLOG) ASPART 100 UNITS/ML 10ML VIAL ONE (12:05)
[2021-11-30] MEDS ORDERED: LIDOCAINE 5% TOPICAL PATCH TP ONE (21:41)
[2021-11-30] MEDS ORDERED: METHOCARBAMOL 500 MG TABLET PO PRN (21:45)
[2021-11-30] MEDS: LIDOCAINE PATCH REMOVAL MC SCH (21:59)
[2021-11-30] MEDS ORDERED: LIDOCAINE PATCH REMOVAL MC SCH (22:00)
[2021-11-30] MEDS: ATORVASTATIN CA 20 MG TABLET (FP) PO SCH (22:01)
[2021-11-30] MEDS: THIAMINE HCL 100 MG TABLET (FP) PO SCH (22:01)
[2021-11-30] MEDS: INSULIN (LEVEMIR) 100 UNITS/ML UNITS SQ SCH (22:09)
[2021-12-01] MEDS: ACETAMINOPHEN 325 MG TABLET (FP) PO PRN ×2 (03:43→13:48)
[2021-12-01] MEDS: INSULIN SLIDING SCALE (NOVOLOG) 1 VIAL SQ SCH ×4 (06:56→21:32)
[2021-12-01] MEDS ORDERED: INSULIN (NOVOLOG) ASPART 100 UNITS/ML 10ML VIAL ONE ×3 (06:57→16:47)
[2021-12-01] MEDS: GABAPENTIN 400 MG CAPSULE PO SCH ×3 (06:58→21:36)
[2021-12-01] MEDS: FUROSEMIDE 20 MG TABLET (FP) PO SCH ×2 (06:58→13:48)
[2021-12-01] MEDS: ASPIRIN COATED 81 MG TABLET.EC PO SCH (10:04)
[2021-12-01] MEDS: CILOSTAZOL 50 MG TABLET PO SCH (10:05)
[2021-12-01] MEDS: PRENATAL VITAMINS W/ FOLIC ACID TABLET (FP) PO SCH (10:05)
[2021-12-01] MEDS: LIDOCAINE 5% TOPICAL PATCH TP SCH (10:05)
[2021-12-01] MEDS: TOLNAFTATE 1% POWDER 45 GM POW TP SCH ×2 (10:08→21:36)
[2021-12-01] MEDS: HYDROCORTISONE 1% TOPICAL OINT 30 GM TUBE TP SCH ×2 (10:08→21:34)
[2021-12-01] MEDS: TOLNAFTATE 1% CREAM 15 GM TUBE TP SCH ×2 (10:08→21:36)
[2021-12-01] MEDS: METHYL SALICYLATE/MENTHOL OINT 30 GM TUBE TP SCH ×2 (10:09→21:33)
[2021-12-01] MEDS: FLUOCINONIDE 0.05% CREAM (15 GM TUBE) TP SCH ×2 (10:12→21:34)
[2021-12-01 14:08] LABS: SARS-CoV-2 NAA Not Detected (Not Detected)
[2021-12-01] MEDS: INSULIN (LEVEMIR) 100 UNITS/ML UNITS SQ SCH (21:30)
[2021-12-01] MEDS: THIAMINE HCL 100 MG TABLET (FP) PO SCH (21:33)
[2021-12-01] MEDS: ATORVASTATIN CA 20 MG TABLET (FP) PO SCH (21:33)
[2021-12-01] MEDS: diphenhydrAMINE HCL 25 MG CAPSULE (FP) PO PRN (21:33)
[2021-12-01] MEDS: LIDOCAINE PATCH REMOVAL MC SCH (21:34)
[2021-12-01] MEDS: METHOCARBAMOL 750 MG TAB PO PRN (21:35)
[2021-12-01] MEDS ORDERED: INSULIN (LEVEMIR) 100 UNITS/ML UNITS SQ ONE (22:00)
[2021-12-02] MEDS ORDERED: INSULIN (NOVOLOG) ASPART 100 UNITS/ML 10ML VIAL ONE ×4 (06:57→22:38)
[2021-12-02] MEDS: INSULIN SLIDING SCALE (NOVOLOG) 1 VIAL SQ SCH ×4 (06:58→21:43)
[2021-12-02] MEDS: GABAPENTIN 400 MG CAPSULE PO SCH ×3 (07:01→21:37)
[2021-12-02] MEDS: FUROSEMIDE 20 MG TABLET (FP) PO SCH ×2 (07:01→13:48)
[2021-12-02] MEDS: ACETAMINOPHEN 325 MG TABLET (FP) PO PRN ×2 (07:02→13:47)
[2021-12-02] MEDS: LIDOCAINE 5% TOPICAL PATCH TP SCH (09:37)
[2021-12-02] MEDS: ASPIRIN COATED 81 MG TABLET.EC PO SCH (09:38)
[2021-12-02] MEDS: PRENATAL VITAMINS W/ FOLIC ACID TABLET (FP) PO SCH (09:38)
[2021-12-02] MEDS: CILOSTAZOL 50 MG TABLET PO SCH (09:38)
[2021-12-02] MEDS: FLUOCINONIDE 0.05% CREAM (15 GM TUBE) TP SCH ×2 (09:39→21:42)
[2021-12-02] MEDS: HYDROCORTISONE 1% TOPICAL OINT 30 GM TUBE TP SCH ×2 (09:40→21:42)
[2021-12-02] MEDS: TOLNAFTATE 1% CREAM 15 GM TUBE TP SCH ×2 (09:41→21:43)
[2021-12-02] MEDS: METHYL SALICYLATE/MENTHOL OINT 30 GM TUBE TP SCH ×2 (09:42→21:36)
[2021-12-02] MEDS: TOLNAFTATE 1% POWDER 45 GM POW TP SCH ×2 (09:42→21:43)
[2021-12-02] MEDS: CARBAMIDE PEROXIDE 6.5% OTIC 15 ML BOTTLE AU SCH ×2 (14:49→21:44)
[2021-12-02] MEDS: METHOCARBAMOL 750 MG TAB PO PRN (21:37)
[2021-12-02] MEDS: ATORVASTATIN CA 20 MG TABLET (FP) PO SCH (21:37)
[2021-12-02] MEDS: INSULIN (LEVEMIR) 100 UNITS/ML UNITS SQ SCH (21:39)
[2021-12-02] MEDS: LIDOCAINE PATCH REMOVAL MC SCH (21:42)
[2021-12-02] MEDS: THIAMINE HCL 100 MG TABLET (FP) PO SCH (21:43)
[2021-12-03] MEDS: FUROSEMIDE 20 MG TABLET (FP) PO SCH ×2 (06:43→14:32)
[2021-12-03] MEDS: METHOCARBAMOL 750 MG TAB PO PRN ×2 (06:43→21:39)
[2021-12-03] MEDS: GABAPENTIN 400 MG CAPSULE PO SCH ×3 (06:43→21:36)
[2021-12-03] MEDS: INSULIN SLIDING SCALE (NOVOLOG) 1 VIAL SQ SCH ×4 (06:44→21:43)
[2021-12-03] MEDS ORDERED: INSULIN (NOVOLOG) ASPART 100 UNITS/ML 10ML VIAL ONE ×4 (06:45→21:56)
[2021-12-03] MEDS: ACETAMINOPHEN 325 MG TABLET (FP) PO PRN ×3 (06:46→21:39)
[2021-12-03] MEDS: LIDOCAINE 5% TOPICAL PATCH TP SCH (11:46)
[2021-12-03] MEDS: CILOSTAZOL 50 MG TABLET PO SCH (11:46)
[2021-12-03] MEDS: PRENATAL VITAMINS W/ FOLIC ACID TABLET (FP) PO SCH (11:46)
[2021-12-03] MEDS: ASPIRIN COATED 81 MG TABLET.EC PO SCH (11:46)
[2021-12-03] MEDS: CARBAMIDE PEROXIDE 6.5% OTIC 15 ML BOTTLE AU SCH ×2 (11:47→21:43)
[2021-12-03] MEDS: HYDROCORTISONE 1% TOPICAL OINT 30 GM TUBE TP SCH ×2 (11:58→21:43)
[2021-12-03] MEDS: TOLNAFTATE 1% POWDER 45 GM POW TP SCH ×2 (11:58→21:44)
[2021-12-03] MEDS: FLUOCINONIDE 0.05% CREAM (15 GM TUBE) TP SCH ×2 (11:58→21:37)
[2021-12-03] MEDS: TOLNAFTATE 1% CREAM 15 GM TUBE TP SCH ×2 (11:58→21:44)
[2021-12-03] MEDS: METHYL SALICYLATE/MENTHOL OINT 30 GM TUBE TP SCH ×2 (11:58→21:42)
[2021-12-03] MEDS: MELATONIN 5 MG TABLETS PO PRN (21:36)
[2021-12-03] MEDS: THIAMINE HCL 100 MG TABLET (FP) PO SCH (21:36)
[2021-12-03] MEDS: ATORVASTATIN CA 20 MG TABLET (FP) PO SCH (21:37)
[2021-12-03] MEDS: INSULIN (LEVEMIR) 100 UNITS/ML UNITS SQ SCH (21:42)
[2021-12-03] MEDS: LIDOCAINE PATCH REMOVAL MC SCH (21:43)
[2021-12-04] MEDS ORDERED: INSULIN (NOVOLOG) ASPART 100 UNITS/ML 10ML VIAL ONE ×3 (06:41→16:43)
[2021-12-04] MEDS: GABAPENTIN 400 MG CAPSULE PO SCH ×3 (06:43→21:53)
[2021-12-04] MEDS: INSULIN SLIDING SCALE (NOVOLOG) 1 VIAL SQ SCH ×4 (06:43→22:24)
[2021-12-04] MEDS: ACETAMINOPHEN 325 MG TABLET (FP) PO PRN ×2 (06:44→21:53)
[2021-12-04] MEDS: FUROSEMIDE 20 MG TABLET (FP) PO SCH ×2 (06:44→13:40)
[2021-12-04] MEDS: ASPIRIN COATED 81 MG TABLET.EC PO SCH (09:35)
[2021-12-04] MEDS: PRENATAL VITAMINS W/ FOLIC ACID TABLET (FP) PO SCH (09:35)
[2021-12-04] MEDS: METHOCARBAMOL 750 MG TAB PO PRN ×2 (09:35→21:59)
[2021-12-04] MEDS: METHYL SALICYLATE/MENTHOL OINT 30 GM TUBE TP SCH ×2 (09:35→21:48)
[2021-12-04] MEDS: CARBAMIDE PEROXIDE 6.5% OTIC 15 ML BOTTLE AU SCH ×2 (09:36→23:58)
[2021-12-04] MEDS: HYDROCORTISONE 1% TOPICAL OINT 30 GM TUBE TP SCH ×2 (09:36→21:54)
[2021-12-04] MEDS: LIDOCAINE 5% TOPICAL PATCH TP SCH (09:37)
[2021-12-04] MEDS: TOLNAFTATE 1% POWDER 45 GM POW TP SCH ×2 (09:38→23:29)
[2021-12-04] MEDS: TOLNAFTATE 1% CREAM 15 GM TUBE TP SCH ×2 (09:38→23:29)
[2021-12-04] MEDS: FLUOCINONIDE 0.05% CREAM (15 GM TUBE) TP SCH ×2 (09:38→21:54)
[2021-12-04] MEDS: CILOSTAZOL 50 MG TABLET PO SCH (09:38)
[2021-12-04] MEDS: INSULIN (LEVEMIR) 100 UNITS/ML UNITS SQ SCH (21:51)
[2021-12-04] MEDS: LIDOCAINE PATCH REMOVAL MC SCH (21:52)
[2021-12-04] MEDS: THIAMINE HCL 100 MG TABLET (FP) PO SCH (21:53)
[2021-12-04] MEDS: ATORVASTATIN CA 20 MG TABLET (FP) PO SCH (23:29)
[2021-12-05] MEDS: ACETAMINOPHEN 325 MG TABLET (FP) PO PRN ×2 (06:53→16:46)
[2021-12-05] MEDS: METHOCARBAMOL 750 MG TAB PO PRN (06:53)
[2021-12-05] MEDS: GABAPENTIN 400 MG CAPSULE PO SCH ×3 (06:53→22:08)
[2021-12-05] MEDS: FUROSEMIDE 20 MG TABLET (FP) PO SCH ×2 (07:26→13:52)
[2021-12-05] MEDS: INSULIN SLIDING SCALE (NOVOLOG) 1 VIAL SQ SCH ×4 (07:27→22:07)
[2021-12-05] MEDS ORDERED: INSULIN (NOVOLOG) ASPART 100 UNITS/ML 10ML VIAL ONE ×3 (07:28→16:37)
[2021-12-05] MEDS: LIDOCAINE 5% TOPICAL PATCH TP SCH (10:12)
[2021-12-05] MEDS: ASPIRIN COATED 81 MG TABLET.EC PO SCH (10:13)
[2021-12-05] MEDS: CARBAMIDE PEROXIDE 6.5% OTIC 15 ML BOTTLE AU SCH ×2 (10:14→22:10)
[2021-12-05] MEDS: PRENATAL VITAMINS W/ FOLIC ACID TABLET (FP) PO SCH (10:19)
[2021-12-05] MEDS: FLUOCINONIDE 0.05% CREAM (15 GM TUBE) TP SCH ×2 (10:22→22:08)
[2021-12-05] MEDS: HYDROCORTISONE 1% TOPICAL OINT 30 GM TUBE TP SCH ×2 (10:22→22:10)
[2021-12-05] MEDS: METHYL SALICYLATE/MENTHOL OINT 30 GM TUBE TP SCH ×2 (10:22→22:05)
[2021-12-05] MEDS: TOLNAFTATE 1% POWDER 45 GM POW TP SCH ×2 (10:23→22:09)
[2021-12-05] MEDS: TOLNAFTATE 1% CREAM 15 GM TUBE TP SCH ×2 (10:23→22:09)
[2021-12-05] MEDS: CILOSTAZOL 50 MG TABLET PO SCH (13:46)
[2021-12-05] MEDS: THIAMINE HCL 100 MG TABLET (FP) PO SCH (22:08)
[2021-12-05] MEDS: ATORVASTATIN CA 20 MG TABLET (FP) PO SCH (22:08)
[2021-12-05] MEDS: LIDOCAINE PATCH REMOVAL MC SCH (22:09)
[2021-12-05] MEDS: INSULIN (LEVEMIR) 100 UNITS/ML UNITS SQ SCH (22:09)
[2021-12-06] MEDS: GABAPENTIN 400 MG CAPSULE PO SCH ×3 (06:51→21:37)
[2021-12-06] MEDS: METHOCARBAMOL 750 MG TAB PO PRN ×3 (06:51→21:37)
[2021-12-06] MEDS: ACETAMINOPHEN 325 MG TABLET (FP) PO PRN ×2 (06:51→21:38)
[2021-12-06] MEDS: FUROSEMIDE 20 MG TABLET (FP) PO SCH ×2 (06:51→14:33)
[2021-12-06] MEDS ORDERED: INSULIN (NOVOLOG) ASPART 100 UNITS/ML 10ML VIAL ONE ×4 (06:57→21:52)
[2021-12-06] MEDS: INSULIN SLIDING SCALE (NOVOLOG) 1 VIAL SQ SCH ×4 (07:49→21:40)
[2021-12-06] MEDS: ASPIRIN COATED 81 MG TABLET.EC PO SCH (10:03)
[2021-12-06] MEDS: METHYL SALICYLATE/MENTHOL OINT 30 GM TUBE TP SCH ×2 (10:04→21:44)
[2021-12-06] MEDS: FLUOCINONIDE 0.05% CREAM (15 GM TUBE) TP SCH ×2 (10:05→21:45)
[2021-12-06] MEDS: CARBAMIDE PEROXIDE 6.5% OTIC 15 ML BOTTLE AU SCH (10:05)
[2021-12-06] MEDS: HYDROCORTISONE 1% TOPICAL OINT 30 GM TUBE TP SCH ×2 (10:06→21:45)
[2021-12-06] MEDS: PRENATAL VITAMINS W/ FOLIC ACID TABLET (FP) PO SCH (10:07)
[2021-12-06] MEDS: TOLNAFTATE 1% CREAM 15 GM TUBE TP SCH ×2 (10:07→21:45)
[2021-12-06] MEDS: LIDOCAINE 5% TOPICAL PATCH TP SCH (10:08)
[2021-12-06] MEDS: TOLNAFTATE 1% POWDER 45 GM POW TP SCH ×2 (10:08→21:45)
[2021-12-06] MEDS: CILOSTAZOL 50 MG TABLET PO SCH (10:09)
[2021-12-06] MEDS: THIAMINE HCL 100 MG TABLET (FP) PO SCH (21:37)
[2021-12-06] MEDS: MELATONIN 5 MG TABLETS PO PRN (21:37)
[2021-12-06] MEDS: ATORVASTATIN CA 20 MG TABLET (FP) PO SCH (21:37)
[2021-12-06] MEDS: INSULIN (LEVEMIR) 100 UNITS/ML UNITS SQ SCH (21:41)
[2021-12-06] MEDS: LIDOCAINE PATCH REMOVAL MC SCH (21:45)
[2021-12-07] MEDS: FUROSEMIDE 20 MG TABLET (FP) PO SCH (06:50)
[2021-12-07] MEDS: GABAPENTIN 400 MG CAPSULE PO SCH (06:50)
[2021-12-07] MEDS: METHOCARBAMOL 750 MG TAB PO PRN (06:51)
[2021-12-07] MEDS: INSULIN SLIDING SCALE (NOVOLOG) 1 VIAL SQ SCH (06:53)
[2021-12-07] MEDS ORDERED: INSULIN (NOVOLOG) ASPART 100 UNITS/ML 10ML VIAL ONE (06:54)
[2021-12-07] MEDS: ACETAMINOPHEN 325 MG TABLET (FP) PO PRN (06:54)
[2021-12-07 07:04] VITALS: TEMP 98.4
[2021-12-07] MEDS: METHYL SALICYLATE/MENTHOL OINT 30 GM TUBE TP SCH (09:12)
[2021-12-07] MEDS: HYDROCORTISONE 1% TOPICAL OINT 30 GM TUBE TP SCH (09:13)
[2021-12-07] MEDS: LIDOCAINE 5% TOPICAL PATCH TP SCH (09:13)
[2021-12-07] MEDS: ASPIRIN COATED 81 MG TABLET.EC PO SCH (09:13)
[2021-12-07] MEDS: FLUOCINONIDE 0.05% CREAM (15 GM TUBE) TP SCH (09:13)
[2021-12-07] MEDS: PRENATAL VITAMINS W/ FOLIC ACID TABLET (FP) PO SCH (09:14)
[2021-12-07] MEDS: CILOSTAZOL 50 MG TABLET PO SCH (09:14)
[2021-12-07] MEDS: TOLNAFTATE 1% POWDER 45 GM POW TP SCH (09:14)
[2021-12-07] MEDS: TOLNAFTATE 1% CREAM 15 GM TUBE TP SCH (09:14)
[2021-12-07 09:15] VITALS: BP 106/61; PULSE 93
== END 2021-12-07 09:52 | disposition home or self-care (01) | DRG 772 ==
LOC: YASAS 13:29 → Y3E 13:30
PROVIDERS: ADMIT Allergy & Immunology; ATTEND Allergy & Immunology
PROC: HZ42ZZZ Group Counseling for Substance Abuse Treatment, Cognitive-Behavioral (ICD-10-PCS; principal; 2021-11-23)
DX: F10.20 Alcohol dependence, uncomplicated (principal); F14.20 Cocaine dependence, uncomplicated; F17.210 Nicotine dependence, cigarettes, uncomplicated; H61.23 Impacted cerumen, bilateral; L85.3 Xerosis cutis; M54.50 Low back pain, unspecified; M25.562 Pain in left knee; M79.652 Pain in left thigh; W19.XXXA Unspecified fall, initial encounter; Y92.230 Patient room in hospital as the place of occurrence of the external cause; Z88.0 Allergy status to penicillin; Z91.014 Allergy to mammalian meats
CPT/HCPCS: 82962; C9803-CS; U0003; U0005

== ENCOUNTER 2022-01-19 08:50 | Inpatient (IN) | payer OTHER ==
[2022-01-19 09:15] VITALS: BMI 26.6
[2022-01-19] MEDS ORDERED: MAGNESIUM HYDROX 2400MG/30ML ORAL SUSPENSION 30 ML CUP PO PRN (09:33)
[2022-01-19] MEDS ORDERED: LOPERAMIDE HCL 2 MG CAPSULE PO PRN (09:33)
[2022-01-19] MEDS ORDERED: ONDANSETRON *ODT* 4 MG TABLET SL PRN (09:33)
[2022-01-19] MEDS ORDERED: ACETAMINOPHEN 325 MG TABLET (FP) PO PRN (09:33)
[2022-01-19] MEDS ORDERED: MAG HYDROX/AL HYDROX/SIMETH 30 ML UNIT-DOSE CUP PO PRN (09:33)
[2022-01-19] MEDS ORDERED: DICYCLOMINE HCL 10 MG CAPSULE PO PRN (09:33)
[2022-01-19] MEDS ORDERED: BENZOCAINE/MENTHOL (CHLORASEPTIC ) LOZENGE MM PRN (09:33)
[2022-01-19] MEDS ORDERED: BISMUTH SUBSALICYLATE 524 MG/30 ML PO PRN (09:33)
[2022-01-19] MEDS ORDERED: NICOTINE 10 MG CARTRIDGE (INHALER) IH PRN (09:33)
[2022-01-19] MEDS ORDERED: MAGNESIUM CITRATE 300 ML BOTTLE PO PRN (09:33)
[2022-01-19] MEDS ORDERED: ACETAMINOPHEN 325 MG TABLET (FP) ONE (10:05)
[2022-01-19] MEDS ORDERED: hydrOXYzine PAMOATE 25 MG CAPSULE (FP) PO ONE (10:06)
[2022-01-19] MEDS ORDERED: INSULIN (NOVOLOG) ASPART 100 UNITS/ML 10ML VIAL ONE (10:20)
[2022-01-19] MEDS: hydrOXYzine PAMOATE 25 MG CAPSULE (FP) PO SCH ×4 (10:24→22:55)
[2022-01-19] MEDS: ACETAMINOPHEN 325 MG TABLET (FP) PO PRN (10:24)
[2022-01-19] MEDS: INSULIN SLIDING SCALE (NOVOLOG) 1 VIAL SQ SCH ×2 (10:24→17:09)
[2022-01-19] MEDS ORDERED: COLLOIDAL OATMEAL 1 BAR EACH TP PRN (12:03)
[2022-01-19] MEDS: ASPIRIN COATED 81 MG TABLET.EC PO SCH (13:08)
[2022-01-19] MEDS: FUROSEMIDE 20 MG TABLET (FP) PO SCH (13:08)
[2022-01-19] MEDS: GABAPENTIN 400 MG CAPSULE PO SCH ×2 (13:08→22:49)
[2022-01-19] MEDS: NIFEdipine E.R. 30 MG TABLET PO SCH (13:08)
[2022-01-19] MEDS: FLUOCINONIDE 0.05% CREAM (15 GM TUBE) TP SCH ×2 (13:09→22:54)
[2022-01-19] MEDS: PRENATAL VITAMINS W/ FOLIC ACID TABLET (FP) PO SCH (13:10)
[2022-01-19] MEDS: CILOSTAZOL 50 MG TABLET PO SCH (13:10)
[2022-01-19] MEDS ORDERED: MELATONIN 5 MG TABLETS PO SCH (22:00)
[2022-01-19] MEDS ORDERED: diphenhydrAMINE HCL 25 MG CAPSULE (FP) PO PRN (22:00)
[2022-01-19] MEDS: THIAMINE HCL 100 MG TABLET (FP) PO SCH (22:50)
[2022-01-19] MEDS: diphenhydrAMINE HCL 25 MG CAPSULE (FP) PO PRN (22:50)
[2022-01-19] MEDS: ATORVASTATIN CA 20 MG TABLET (FP) PO SCH (22:50)
[2022-01-19] MEDS: INSULIN (LEVEMIR) 100 UNITS/ML UNITS SQ SCH (22:54)
[2022-01-20] MEDS: GABAPENTIN 400 MG CAPSULE PO SCH ×3 (05:50→22:29)
[2022-01-20] MEDS: hydrOXYzine PAMOATE 25 MG CAPSULE (FP) PO SCH ×5 (05:51→22:33)
[2022-01-20] MEDS: METHOCARBAMOL 500 MG TABLET PO PRN (05:52)
[2022-01-20] MEDS: INSULIN SLIDING SCALE (NOVOLOG) 1 VIAL SQ SCH ×3 (07:00→16:29)
[2022-01-20] MEDS: FUROSEMIDE 20 MG TABLET (FP) PO SCH ×2 (08:21→15:37)
[2022-01-20] MEDS ORDERED: chlordiazePOXIDE HCL 25 MG CAPSULE PO PRN (09:46)
[2022-01-20 10:15] LABS: HEMATOCRIT 48.1 % (35.4-49); HEMOGLOBIN 16.2 GM/dL (11.7-16.9); MCH 30.8 pg (25.7-33.7); MCHC 33.7 g/dl (32.0-35.9); MEAN CELL VOLUME 91.6 fl (80-96); MEAN PLT VOLUME 8.6 fl (7.5-11.1); PLATELET COUNT 213 10^3/uL (134-434); RBC 5.25 M/mm3 (4.00-5.60); RDW 14.2 % (11.9-15.9); WHITE BLOOD COUNT 4.7 K/mm3 (4.0-10.0)
[2022-01-20 10:23] LABS: ALBUMIN 3.6 g/dl (3.4-5.0); BLOOD UREA NITROGEN 20.6 mg/dL (7-18); CALCIUM 9.2 mg/dL (8.5-10.1)
[2022-01-20 10:26] LABS: CREATININE 1.6 mg/dL (0.55-1.3)
[2022-01-20 10:28] LABS: TOT PROT 7.5 g/dl (6.4-8.2)
[2022-01-20] MEDS: CILOSTAZOL 50 MG TABLET PO SCH (10:30)
[2022-01-20] MEDS: PRENATAL VITAMINS W/ FOLIC ACID TABLET (FP) PO SCH (10:30)
[2022-01-20] MEDS: NIFEdipine E.R. 30 MG TABLET PO SCH (10:30)
[2022-01-20] MEDS: ASPIRIN COATED 81 MG TABLET.EC PO SCH (10:30)
[2022-01-20] MEDS: chlordiazePOXIDE HCL 25 MG CAPSULE PO SCH ×3 (10:31→22:28)
[2022-01-20] MEDS: FLUOCINONIDE 0.05% CREAM (15 GM TUBE) TP SCH ×2 (12:03→22:28)
[2022-01-20] MEDS: INSULIN (LEVEMIR) 100 UNITS/ML UNITS SQ SCH (21:56)
[2022-01-20] MEDS: THIAMINE HCL 100 MG TABLET (FP) PO SCH (22:29)
[2022-01-20] MEDS: diphenhydrAMINE HCL 25 MG CAPSULE (FP) PO PRN (22:29)
[2022-01-20] MEDS: ATORVASTATIN CA 20 MG TABLET (FP) PO SCH (22:29)
[2022-01-21] MEDS: chlordiazePOXIDE HCL 25 MG CAPSULE PO SCH ×4 (05:30→23:11)
[2022-01-21] MEDS: GABAPENTIN 400 MG CAPSULE PO SCH ×3 (05:30→22:53)
[2022-01-21] MEDS: FUROSEMIDE 20 MG TABLET (FP) PO SCH ×2 (05:30→15:08)
[2022-01-21] MEDS: hydrOXYzine PAMOATE 25 MG CAPSULE (FP) PO SCH ×5 (05:33→22:53)
[2022-01-21] MEDS: INSULIN SLIDING SCALE (NOVOLOG) 1 VIAL SQ SCH ×3 (07:07→18:06)
[2022-01-21] MEDS: FLUOCINONIDE 0.05% CREAM (15 GM TUBE) TP SCH ×2 (10:26→22:53)
[2022-01-21] MEDS: PRENATAL VITAMINS W/ FOLIC ACID TABLET (FP) PO SCH (10:26)
[2022-01-21] MEDS: CILOSTAZOL 50 MG TABLET PO SCH (10:26)
[2022-01-21] MEDS: ASPIRIN COATED 81 MG TABLET.EC PO SCH (10:27)
[2022-01-21] MEDS: NIFEdipine E.R. 30 MG TABLET PO SCH (10:27)
[2022-01-21] MEDS ORDERED: INSULIN SLIDING SCALE (NOVOLOG) 1 VIAL SQ ONE (11:42)
[2022-01-21] MEDS: METHOCARBAMOL 500 MG TABLET PO PRN ×2 (15:07→23:06)
[2022-01-21] MEDS: ACETAMINOPHEN 325 MG TABLET (FP) PO PRN ×2 (15:08→23:06)
[2022-01-21] MEDS: INSULIN (LEVEMIR) 100 UNITS/ML UNITS SQ SCH (22:52)
[2022-01-21] MEDS: THIAMINE HCL 100 MG TABLET (FP) PO SCH (22:53)
[2022-01-21] MEDS: ATORVASTATIN CA 20 MG TABLET (FP) PO SCH (22:53)
[2022-01-22] MEDS: GABAPENTIN 400 MG CAPSULE PO SCH ×3 (06:14→22:33)
[2022-01-22] MEDS: FUROSEMIDE 20 MG TABLET (FP) PO SCH ×2 (06:14→14:58)
[2022-01-22] MEDS: hydrOXYzine PAMOATE 25 MG CAPSULE (FP) PO SCH ×5 (06:14→22:44)
[2022-01-22] MEDS: INSULIN SLIDING SCALE (NOVOLOG) 1 VIAL SQ SCH ×3 (06:15→17:31)
[2022-01-22] MEDS: chlordiazePOXIDE HCL 25 MG CAPSULE PO SCH ×4 (06:15→22:33)
[2022-01-22] MEDS: PRENATAL VITAMINS W/ FOLIC ACID TABLET (FP) PO SCH (10:28)
[2022-01-22] MEDS: CILOSTAZOL 50 MG TABLET PO SCH (10:28)
[2022-01-22] MEDS: FLUOCINONIDE 0.05% CREAM (15 GM TUBE) TP SCH ×2 (10:28→22:31)
[2022-01-22] MEDS: NIFEdipine E.R. 30 MG TABLET PO SCH (10:28)
[2022-01-22] MEDS: ASPIRIN COATED 81 MG TABLET.EC PO SCH (10:28)
[2022-01-22] MEDS: METHOCARBAMOL 500 MG TABLET PO PRN (10:31)
[2022-01-22] MEDS: ACETAMINOPHEN 325 MG TABLET (FP) PO PRN (10:31)
[2022-01-22] MEDS: METHYL SALICYLATE/MENTHOL OINT 30 GM TUBE TP SCH ×2 (14:58→22:32)
[2022-01-22] MEDS ORDERED: INSULIN (NOVOLOG) ASPART 100 UNITS/ML 10ML VIAL SQ ONE (17:30)
[2022-01-22] MEDS: THIAMINE HCL 100 MG TABLET (FP) PO SCH (22:33)
[2022-01-22] MEDS: diphenhydrAMINE HCL 25 MG CAPSULE (FP) PO PRN (22:33)
[2022-01-22] MEDS: ATORVASTATIN CA 20 MG TABLET (FP) PO SCH (22:33)
[2022-01-22] MEDS: INSULIN (LEVEMIR) 100 UNITS/ML UNITS SQ SCH (22:34)
[2022-01-23] MEDS ORDERED: chlordiazePOXIDE HCL 10 MG CAPSULE PO PRN
[2022-01-23] MEDS: hydrOXYzine PAMOATE 25 MG CAPSULE (FP) PO SCH ×5 (06:43→23:11)
[2022-01-23] MEDS: FUROSEMIDE 20 MG TABLET (FP) PO SCH ×2 (06:43→13:39)
[2022-01-23] MEDS: GABAPENTIN 400 MG CAPSULE PO SCH ×3 (06:43→22:38)
[2022-01-23] MEDS: chlordiazePOXIDE HCL 10 MG CAPSULE PO SCH ×4 (06:44→22:37)
[2022-01-23] MEDS: METHOCARBAMOL 500 MG TABLET PO PRN ×2 (06:44→22:44)
[2022-01-23] MEDS: INSULIN SLIDING SCALE (NOVOLOG) 1 VIAL SQ SCH ×3 (08:10→17:12)
[2022-01-23] MEDS: NIFEdipine E.R. 30 MG TABLET PO SCH (10:41)
[2022-01-23] MEDS: FLUOCINONIDE 0.05% CREAM (15 GM TUBE) TP SCH ×2 (10:41→22:38)
[2022-01-23] MEDS: METHYL SALICYLATE/MENTHOL OINT 30 GM TUBE TP SCH ×2 (10:41→22:39)
[2022-01-23] MEDS: CILOSTAZOL 50 MG TABLET PO SCH (10:41)
[2022-01-23] MEDS: PRENATAL VITAMINS W/ FOLIC ACID TABLET (FP) PO SCH (10:41)
[2022-01-23] MEDS: ASPIRIN COATED 81 MG TABLET.EC PO SCH (10:42)
[2022-01-23] MEDS ORDERED: INSULIN (NOVOLOG) ASPART 100 UNITS/ML 10ML VIAL SQ ONE (22:00)
[2022-01-23] MEDS: diphenhydrAMINE HCL 25 MG CAPSULE (FP) PO PRN (22:38)
[2022-01-23] MEDS: ATORVASTATIN CA 20 MG TABLET (FP) PO SCH (22:38)
[2022-01-23] MEDS: THIAMINE HCL 100 MG TABLET (FP) PO SCH (22:38)
[2022-01-23] MEDS: ACETAMINOPHEN 325 MG TABLET (FP) PO PRN (22:42)
[2022-01-23] MEDS: INSULIN (LEVEMIR) 100 UNITS/ML UNITS SQ SCH (22:48)
[2022-01-23] MEDS ORDERED: INSULIN SLIDING SCALE (NOVOLOG) 1 VIAL SQ ONE (22:50)
[2022-01-24] MEDS ORDERED: chlordiazePOXIDE HCL 10 MG CAPSULE PO SCH (05:00)
[2022-01-24] MEDS: GABAPENTIN 400 MG CAPSULE PO SCH (05:34)
[2022-01-24] MEDS: FUROSEMIDE 20 MG TABLET (FP) PO SCH (05:35)
[2022-01-24] MEDS: hydrOXYzine PAMOATE 25 MG CAPSULE (FP) PO SCH ×2 (05:35→10:31)
[2022-01-24] MEDS: ACETAMINOPHEN 325 MG TABLET (FP) PO PRN (05:38)
[2022-01-24] MEDS: INSULIN SLIDING SCALE (NOVOLOG) 1 VIAL SQ SCH ×2 (07:34→12:03)
[2022-01-24] MEDS: ASPIRIN COATED 81 MG TABLET.EC PO SCH (10:29)
[2022-01-24] MEDS: PRENATAL VITAMINS W/ FOLIC ACID TABLET (FP) PO SCH (10:29)
[2022-01-24] MEDS: NIFEdipine E.R. 30 MG TABLET PO SCH (10:29)
[2022-01-24] MEDS: METHYL SALICYLATE/MENTHOL OINT 30 GM TUBE TP SCH (10:29)
[2022-01-24] MEDS: FLUOCINONIDE 0.05% CREAM (15 GM TUBE) TP SCH (10:30)
[2022-01-24] MEDS: CILOSTAZOL 50 MG TABLET PO SCH (10:30)
[2022-01-24] MEDS ORDERED: INSULIN (NOVOLOG) ASPART 100 UNITS/ML 10ML VIAL SQ SCH ×2 (12:00→17:30)
[2022-01-24] MEDS ORDERED: PATIENT'S OWN MEDICATION (NON-FORMULARY) (Insulin Glargine,Hum.Rec.Anlog 100 UNITS/ML Ins) SQ SCH (12:30)
[2022-01-24 13:03] VITALS: BP 108/78; PULSE 105; TEMP 97
[2022-01-25] MEDS ORDERED: chlordiazePOXIDE HCL 10 MG CAPSULE PO ONE (05:00)
== END 2022-01-24 13:50 | disposition other institution (70) | DRG 774 ==
LOC: YASAS 08:50 → Y3N 10:37 → UNDOADMIN 10:37
PROVIDERS: ADMIT Allergy & Immunology; ATTEND Surgery
PROC: HZ2ZZZZ Detoxification Services for Substance Abuse Treatment (ICD-10-PCS; principal; 2022-01-19)
DX: F10.230 Alcohol dependence with withdrawal, uncomplicated (principal); F14.20 Cocaine dependence, uncomplicated; F13.20 Sedative, hypnotic or anxiolytic dependence, uncomplicated; F17.210 Nicotine dependence, cigarettes, uncomplicated; F19.282 Other psychoactive substance dependence with psychoactive substance-induced sleep disorder; F31.9 Bipolar disorder, unspecified; G62.9 Polyneuropathy, unspecified; E10.65 Type 1 diabetes mellitus with hyperglycemia; Z79.4 Long term (current) use of insulin; M17.11 Unilateral primary osteoarthritis, right knee; M25.562 Pain in left knee; Z85.46 Personal history of malignant neoplasm of prostate; Z86.73 Personal history of transient ischemic attack (TIA), and cerebral infarction without residual deficits; Z99.89 Dependence on other enabling machines and devices; Z88.0 Allergy status to penicillin; Z88.6 Allergy status to analgesic agent; Z91.014 Allergy to mammalian meats; W19.XXXA Unspecified fall, initial encounter; Y93.E1 Activity, personal bathing and showering; Y92.231 Patient bathroom in hospital as the place of occurrence of the external cause
CPT/HCPCS: 36415; 80053; 82962; 85027; 86780; 87811; C9803-CS; U0003; U0005

== ENCOUNTER 2022-01-24 13:56 | Inpatient (IN) | payer OTHER ==
[2022-01-24] MEDS ORDERED: NICOTINE 10 MG CARTRIDGE (INHALER) IH PRN (14:27)
[2022-01-24] MEDS ORDERED: P-EPHED 60MG/TRIPROLIDI 2.5MG TABLET PO PRN (14:27)
[2022-01-24] MEDS ORDERED: hydrOXYzine PAMOATE 25 MG CAPSULE (FP) PO PRN (14:27)
[2022-01-24] MEDS ORDERED: BENZOCAINE/MENTHOL (CHLORASEPTIC ) LOZENGE MM PRN (14:27)
[2022-01-24] MEDS ORDERED: LOPERAMIDE HCL 2 MG CAPSULE PO PRN (14:27)
[2022-01-24] MEDS ORDERED: MAGNESIUM HYDROX 2400MG/30ML ORAL SUSPENSION 30 ML CUP PO PRN (14:27)
[2022-01-24] MEDS ORDERED: guaiFENesin 200 MG/10 ML 10 ML UNIT-DOSE CUPS PO PRN (14:27)
[2022-01-24] MEDS ORDERED: IBUPROFEN 400 MG TABLET (FP) PO PRN (14:27)
[2022-01-24] MEDS ORDERED: MAGNESIUM CITRATE 300 ML BOTTLE PO PRN (14:27)
[2022-01-24] MEDS ORDERED: COLLOIDAL OATMEAL 1 BAR EACH TP PRN (14:28)
[2022-01-24] MEDS: INSULIN SLIDING SCALE (NOVOLOG) 1 VIAL SQ SCH ×2 (16:37→21:57)
[2022-01-24] MEDS: INSULIN (NOVOLOG) ASPART 100 UNITS/ML 10ML VIAL SQ SCH (19:26)
[2022-01-24] MEDS: ACETAMINOPHEN 325 MG TABLET (FP) PO PRN (21:53)
[2022-01-24] MEDS: GABAPENTIN 400 MG CAPSULE PO SCH (21:54)
[2022-01-24] MEDS: THIAMINE HCL 100 MG TABLET (FP) PO SCH (21:54)
[2022-01-24] MEDS: MELATONIN 5 MG TABLETS PO SCH (21:54)
[2022-01-24] MEDS: ATORVASTATIN CA 20 MG TABLET (FP) PO SCH (21:54)
[2022-01-24] MEDS: FLUOCINONIDE 0.05% CREAM (15 GM TUBE) TP SCH (21:56)
[2022-01-24] MEDS: INSULIN (LEVEMIR) 100 UNITS/ML UNITS SQ SCH (21:56)
[2022-01-24] MEDS ORDERED: PATIENT'S OWN MEDICATION (NON-FORMULARY) (Insulin Glargine,Hum.Rec.Anlog 100 UNITS/ML Ins) SQ SCH ×2 (22:00)
[2022-01-25] MEDS: ACETAMINOPHEN 325 MG TABLET (FP) PO PRN ×3 (04:23→21:34)
[2022-01-25] MEDS: GABAPENTIN 400 MG CAPSULE PO SCH ×3 (05:59→21:32)
[2022-01-25] MEDS: FUROSEMIDE 20 MG TABLET (FP) PO SCH ×2 (06:00→15:00)
[2022-01-25] MEDS: INSULIN (LEVEMIR) 100 UNITS/ML UNITS SQ SCH ×2 (06:39→21:41)
[2022-01-25] MEDS: INSULIN SLIDING SCALE (NOVOLOG) 1 VIAL SQ SCH ×4 (06:40→21:40)
[2022-01-25] MEDS: INSULIN (NOVOLOG) ASPART 100 UNITS/ML 10ML VIAL SQ SCH ×3 (07:12→17:13)
[2022-01-25] MEDS: NIFEdipine E.R. 30 MG TABLET PO SCH (11:24)
[2022-01-25] MEDS: CILOSTAZOL 50 MG TABLET PO SCH (11:24)
[2022-01-25] MEDS: ASPIRIN COATED 81 MG TABLET.EC PO SCH (11:24)
[2022-01-25] MEDS: PRENATAL VITAMINS W/ FOLIC ACID TABLET (FP) PO SCH (11:24)
[2022-01-25] MEDS: METHOCARBAMOL 500 MG TABLET PO PRN ×3 (11:26→21:34)
[2022-01-25] MEDS: TOLNAFTATE 1% CREAM 15 GM TUBE TP SCH ×2 (11:30→21:41)
[2022-01-25] MEDS: FLUOCINONIDE 0.05% CREAM (15 GM TUBE) TP SCH ×2 (11:31→21:32)
[2022-01-25] MEDS: LIDOCAINE 5% TOPICAL PATCH TP SCH (15:00)
[2022-01-25 15:27] LABS: ALBUMIN 3.3 g/dl (3.4-5.0); BLOOD UREA NITROGEN 34.1 mg/dL (7-18); CALCIUM 9.1 mg/dL (8.5-10.1)
[2022-01-25 15:30] LABS: CREATININE 1.9 mg/dL (0.55-1.3)
[2022-01-25] MEDS: THIAMINE HCL 100 MG TABLET (FP) PO SCH (21:32)
[2022-01-25] MEDS: ATORVASTATIN CA 20 MG TABLET (FP) PO SCH (21:32)
[2022-01-25] MEDS: MELATONIN 5 MG TABLETS PO SCH (21:32)
[2022-01-25] MEDS: LIDOCAINE PATCH REMOVAL MC SCH (21:35)
[2022-01-25] MEDS: MAG HYDROX/AL HYDROX/SIMETH 30 ML UNIT-DOSE CUP PO PRN (21:38)
[2022-01-26] MEDS: GABAPENTIN 400 MG CAPSULE PO SCH ×3 (07:03→21:30)
[2022-01-26] MEDS: METHOCARBAMOL 500 MG TABLET PO PRN ×2 (07:05→21:30)
[2022-01-26] MEDS: FUROSEMIDE 20 MG TABLET (FP) PO SCH ×2 (07:06→14:17)
[2022-01-26] MEDS: INSULIN (LEVEMIR) 100 UNITS/ML UNITS SQ SCH ×2 (07:06→21:34)
[2022-01-26] MEDS: ACETAMINOPHEN 325 MG TABLET (FP) PO PRN (07:08)
[2022-01-26] MEDS: INSULIN SLIDING SCALE (NOVOLOG) 1 VIAL SQ SCH ×4 (07:11→21:34)
[2022-01-26] MEDS: INSULIN (NOVOLOG) ASPART 100 UNITS/ML 10ML VIAL SQ SCH ×3 (07:47→16:25)
[2022-01-26] MEDS: LIDOCAINE 5% TOPICAL PATCH TP SCH (10:33)
[2022-01-26] MEDS: NIFEdipine E.R. 30 MG TABLET PO SCH (10:33)
[2022-01-26] MEDS: CILOSTAZOL 50 MG TABLET PO SCH (10:33)
[2022-01-26] MEDS: ASPIRIN COATED 81 MG TABLET.EC PO SCH (10:33)
[2022-01-26] MEDS: PRENATAL VITAMINS W/ FOLIC ACID TABLET (FP) PO SCH (10:33)
[2022-01-26] MEDS: FLUOCINONIDE 0.05% CREAM (15 GM TUBE) TP SCH ×2 (10:39→21:34)
[2022-01-26] MEDS: TOLNAFTATE 1% CREAM 15 GM TUBE TP SCH ×2 (10:40→21:35)
[2022-01-26] MEDS: MELATONIN 5 MG TABLETS PO SCH (21:29)
[2022-01-26] MEDS: THIAMINE HCL 100 MG TABLET (FP) PO SCH (21:29)
[2022-01-26] MEDS: ATORVASTATIN CA 20 MG TABLET (FP) PO SCH (21:29)
[2022-01-26] MEDS: diphenhydrAMINE HCL 25 MG CAPSULE (FP) PO PRN (21:30)
[2022-01-26] MEDS: LIDOCAINE PATCH REMOVAL MC SCH (21:34)
[2022-01-27] MEDS: GABAPENTIN 400 MG CAPSULE PO SCH ×3 (07:13→21:08)
[2022-01-27] MEDS: FUROSEMIDE 20 MG TABLET (FP) PO SCH ×2 (07:14→14:19)
[2022-01-27] MEDS: INSULIN SLIDING SCALE (NOVOLOG) 1 VIAL SQ SCH ×4 (07:16→21:10)
[2022-01-27] MEDS: INSULIN (LEVEMIR) 100 UNITS/ML UNITS SQ SCH ×2 (07:17→21:10)
[2022-01-27] MEDS: ACETAMINOPHEN 325 MG TABLET (FP) PO PRN ×2 (07:18→21:08)
[2022-01-27] MEDS ORDERED: INSULIN SLIDING SCALE (NOVOLOG) 1 VIAL SQ ONE (07:30)
[2022-01-27] MEDS ORDERED: INSULIN (LEVEMIR) 100 UNITS/ML UNITS SQ ONE (07:30)
[2022-01-27] MEDS: LIDOCAINE 5% TOPICAL PATCH TP SCH (10:24)
[2022-01-27] MEDS: ASPIRIN COATED 81 MG TABLET.EC PO SCH (10:24)
[2022-01-27] MEDS: PRENATAL VITAMINS W/ FOLIC ACID TABLET (FP) PO SCH (10:25)
[2022-01-27] MEDS: TOLNAFTATE 1% CREAM 15 GM TUBE TP SCH ×2 (10:26→21:50)
[2022-01-27] MEDS: NIFEdipine E.R. 30 MG TABLET PO SCH (10:26)
[2022-01-27] MEDS: CILOSTAZOL 50 MG TABLET PO SCH (11:30)
[2022-01-27] MEDS: INSULIN (NOVOLOG) ASPART 100 UNITS/ML 10ML VIAL SQ SCH ×3 (12:47→18:32)
[2022-01-27] MEDS: FLUOCINONIDE 0.05% CREAM (15 GM TUBE) TP SCH ×2 (12:48→21:10)
[2022-01-27] MEDS: SIMETHICONE 80 MG TAB.CHEW (FP) PO PRN (18:32)
[2022-01-27] MEDS: diphenhydrAMINE HCL 25 MG CAPSULE (FP) PO PRN (21:08)
[2022-01-27] MEDS: ATORVASTATIN CA 20 MG TABLET (FP) PO SCH (21:08)
[2022-01-27] MEDS: METHOCARBAMOL 500 MG TABLET PO PRN (21:08)
[2022-01-27] MEDS: THIAMINE HCL 100 MG TABLET (FP) PO SCH (21:09)
[2022-01-27] MEDS: MELATONIN 5 MG TABLETS PO SCH (21:09)
[2022-01-27] MEDS: LIDOCAINE PATCH REMOVAL MC SCH (21:10)
[2022-01-28] MEDS: METHOCARBAMOL 500 MG TABLET PO PRN (07:14)
[2022-01-28] MEDS: ACETAMINOPHEN 325 MG TABLET (FP) PO PRN ×2 (07:14→21:31)
[2022-01-28] MEDS: GABAPENTIN 400 MG CAPSULE PO SCH ×3 (07:14→21:29)
[2022-01-28] MEDS: INSULIN (LEVEMIR) 100 UNITS/ML UNITS SQ SCH ×2 (07:16→21:38)
[2022-01-28] MEDS: INSULIN (NOVOLOG) ASPART 100 UNITS/ML 10ML VIAL SQ SCH ×3 (07:19→16:47)
[2022-01-28] MEDS: INSULIN SLIDING SCALE (NOVOLOG) 1 VIAL SQ SCH ×4 (07:20→21:37)
[2022-01-28] MEDS: FUROSEMIDE 20 MG TABLET (FP) PO SCH ×2 (07:21→15:46)
[2022-01-28] MEDS: TOLNAFTATE 1% CREAM 15 GM TUBE TP SCH ×2 (10:41→21:30)
[2022-01-28] MEDS: FLUOCINONIDE 0.05% CREAM (15 GM TUBE) TP SCH ×2 (10:41→21:30)
[2022-01-28] MEDS: PRENATAL VITAMINS W/ FOLIC ACID TABLET (FP) PO SCH (10:42)
[2022-01-28] MEDS: NIFEdipine E.R. 30 MG TABLET PO SCH (10:42)
[2022-01-28] MEDS: ASPIRIN COATED 81 MG TABLET.EC PO SCH (10:42)
[2022-01-28] MEDS: LIDOCAINE 5% TOPICAL PATCH TP SCH (10:43)
[2022-01-28] MEDS: CILOSTAZOL 50 MG TABLET PO SCH (10:43)
[2022-01-28] MEDS: SIMETHICONE 80 MG TAB.CHEW (FP) PO PRN ×2 (13:03→20:23)
[2022-01-28] MEDS: METHOCARBAMOL 750 MG TABLET PO PRN ×2 (15:48→21:29)
[2022-01-28] MEDS: THIAMINE HCL 100 MG TABLET (FP) PO SCH (21:29)
[2022-01-28] MEDS: ATORVASTATIN CA 20 MG TABLET (FP) PO SCH (21:29)
[2022-01-28] MEDS: diphenhydrAMINE HCL 25 MG CAPSULE (FP) PO PRN (21:29)
[2022-01-28] MEDS: LIDOCAINE PATCH REMOVAL MC SCH (21:32)
[2022-01-28] MEDS: MELATONIN 5 MG TABLETS PO SCH (21:33)
[2022-01-29] MEDS: ACETAMINOPHEN 325 MG TABLET (FP) PO PRN ×2 (04:01→18:42)
[2022-01-29] MEDS: FUROSEMIDE 20 MG TABLET (FP) PO SCH ×2 (07:05→13:36)
[2022-01-29] MEDS: INSULIN (LEVEMIR) 100 UNITS/ML UNITS SQ SCH ×2 (07:05→21:53)
[2022-01-29] MEDS: GABAPENTIN 400 MG CAPSULE PO SCH ×3 (07:05→21:45)
[2022-01-29] MEDS: INSULIN (NOVOLOG) ASPART 100 UNITS/ML 10ML VIAL SQ SCH ×3 (07:06→17:45)
[2022-01-29] MEDS: METHOCARBAMOL 750 MG TABLET PO PRN ×3 (07:07→18:41)
[2022-01-29] MEDS: INSULIN SLIDING SCALE (NOVOLOG) 1 VIAL SQ SCH ×4 (07:09→21:53)
[2022-01-29] MEDS ORDERED: INSULIN SLIDING SCALE (NOVOLOG) 1 VIAL SQ ONE (07:10)
[2022-01-29] MEDS ORDERED: INSULIN (LEVEMIR) 100 UNITS/ML UNITS SQ ONE (07:11)
[2022-01-29] MEDS: CILOSTAZOL 50 MG TABLET PO SCH (10:25)
[2022-01-29] MEDS: NIFEdipine E.R. 30 MG TABLET PO SCH (10:25)
[2022-01-29] MEDS: PRENATAL VITAMINS W/ FOLIC ACID TABLET (FP) PO SCH (10:25)
[2022-01-29] MEDS: ASPIRIN COATED 81 MG TABLET.EC PO SCH (10:25)
[2022-01-29] MEDS: LIDOCAINE 5% TOPICAL PATCH TP SCH (10:26)
[2022-01-29] MEDS: TOLNAFTATE 1% CREAM 15 GM TUBE TP SCH ×2 (10:26→21:46)
[2022-01-29] MEDS: FLUOCINONIDE 0.05% CREAM (15 GM TUBE) TP SCH ×2 (15:10→21:53)
[2022-01-29] MEDS: ATORVASTATIN CA 20 MG TABLET (FP) PO SCH (21:44)
[2022-01-29] MEDS: THIAMINE HCL 100 MG TABLET (FP) PO SCH (21:45)
[2022-01-29] MEDS: diphenhydrAMINE HCL 25 MG CAPSULE (FP) PO PRN (21:45)
[2022-01-29] MEDS: LIDOCAINE PATCH REMOVAL MC SCH (21:46)
[2022-01-29] MEDS: MELATONIN 5 MG TABLETS PO SCH (21:53)
[2022-01-30] MEDS: INSULIN (LEVEMIR) 100 UNITS/ML UNITS SQ SCH ×2 (07:13→22:02)
[2022-01-30] MEDS: FUROSEMIDE 20 MG TABLET (FP) PO SCH ×2 (07:13→14:11)
[2022-01-30] MEDS: INSULIN (NOVOLOG) ASPART 100 UNITS/ML 10ML VIAL SQ SCH ×3 (07:13→16:51)
[2022-01-30] MEDS: GABAPENTIN 400 MG CAPSULE PO SCH ×3 (07:13→22:00)
[2022-01-30] MEDS: INSULIN SLIDING SCALE (NOVOLOG) 1 VIAL SQ SCH ×4 (07:14→22:01)
[2022-01-30] MEDS: METHOCARBAMOL 750 MG TABLET PO PRN ×4 (07:15→22:03)
[2022-01-30] MEDS: ACETAMINOPHEN 325 MG TABLET (FP) PO PRN ×2 (07:16→18:23)
[2022-01-30] MEDS: FLUOCINONIDE 0.05% CREAM (15 GM TUBE) TP SCH ×2 (10:33→22:02)
[2022-01-30] MEDS: PRENATAL VITAMINS W/ FOLIC ACID TABLET (FP) PO SCH (10:34)
[2022-01-30] MEDS: NIFEdipine E.R. 30 MG TABLET PO SCH (10:34)
[2022-01-30] MEDS: LIDOCAINE 5% TOPICAL PATCH TP SCH (10:34)
[2022-01-30] MEDS: ASPIRIN COATED 81 MG TABLET.EC PO SCH (10:35)
[2022-01-30] MEDS: TOLNAFTATE 1% CREAM 15 GM TUBE TP SCH ×2 (10:36→22:01)
[2022-01-30] MEDS: CILOSTAZOL 50 MG TABLET PO SCH (13:12)
[2022-01-30] MEDS: THIAMINE HCL 100 MG TABLET (FP) PO SCH (22:00)
[2022-01-30] MEDS: ATORVASTATIN CA 20 MG TABLET (FP) PO SCH (22:00)
[2022-01-30] MEDS: MELATONIN 5 MG TABLETS PO SCH (22:01)
[2022-01-30] MEDS: diphenhydrAMINE HCL 25 MG CAPSULE (FP) PO PRN (22:01)
[2022-01-30] MEDS: LIDOCAINE PATCH REMOVAL MC SCH (22:02)
[2022-01-31] MEDS: INSULIN (LEVEMIR) 100 UNITS/ML UNITS SQ SCH ×2 (06:03→21:35)
[2022-01-31] MEDS: GABAPENTIN 400 MG CAPSULE PO SCH ×3 (06:04→21:31)
[2022-01-31] MEDS: FUROSEMIDE 20 MG TABLET (FP) PO SCH ×2 (06:05→13:54)
[2022-01-31] MEDS: METHOCARBAMOL 750 MG TABLET PO PRN ×3 (06:06→21:31)
[2022-01-31] MEDS: ACETAMINOPHEN 325 MG TABLET (FP) PO PRN ×2 (06:06→16:51)
[2022-01-31] MEDS: INSULIN (NOVOLOG) ASPART 100 UNITS/ML 10ML VIAL SQ SCH ×3 (07:36→16:55)
[2022-01-31] MEDS: INSULIN SLIDING SCALE (NOVOLOG) 1 VIAL SQ SCH ×4 (07:36→21:36)
[2022-01-31] MEDS: FLUOCINONIDE 0.05% CREAM (15 GM TUBE) TP SCH ×2 (10:35→21:35)
[2022-01-31] MEDS: TOLNAFTATE 1% CREAM 15 GM TUBE TP SCH ×2 (10:35→21:36)
[2022-01-31] MEDS: PRENATAL VITAMINS W/ FOLIC ACID TABLET (FP) PO SCH (10:36)
[2022-01-31] MEDS: ASPIRIN COATED 81 MG TABLET.EC PO SCH (10:37)
[2022-01-31] MEDS: LIDOCAINE 5% TOPICAL PATCH TP SCH (10:37)
[2022-01-31] MEDS: CILOSTAZOL 50 MG TABLET PO SCH (10:37)
[2022-01-31] MEDS: NIFEdipine E.R. 30 MG TABLET PO SCH (10:37)
[2022-01-31] MEDS: CARBAMIDE PEROXIDE 6.5% OTIC 15 ML BOTTLE AD SCH ×2 (16:55→21:34)
[2022-01-31] MEDS: THIAMINE HCL 100 MG TABLET (FP) PO SCH (21:31)
[2022-01-31] MEDS: ATORVASTATIN CA 20 MG TABLET (FP) PO SCH (21:31)
[2022-01-31] MEDS: MELATONIN 5 MG TABLETS PO SCH (21:31)
[2022-01-31] MEDS: DOCUSATE SODIUM 100 MG CAPSULE (FP) PO SCH (21:32)
[2022-01-31] MEDS: LIDOCAINE PATCH REMOVAL MC SCH (21:35)
[2022-02-01] MEDS: METHOCARBAMOL 750 MG TABLET PO PRN ×3 (03:23→21:35)
[2022-02-01] MEDS: ACETAMINOPHEN 325 MG TABLET (FP) PO PRN ×3 (03:24→21:36)
[2022-02-01] MEDS: INSULIN (LEVEMIR) 100 UNITS/ML UNITS SQ SCH ×2 (06:41→21:40)
[2022-02-01] MEDS: INSULIN (NOVOLOG) ASPART 100 UNITS/ML 10ML VIAL SQ SCH ×3 (06:43→16:59)
[2022-02-01] MEDS: FUROSEMIDE 20 MG TABLET (FP) PO SCH ×2 (06:44→14:26)
[2022-02-01] MEDS: GABAPENTIN 400 MG CAPSULE PO SCH ×3 (06:44→21:35)
[2022-02-01] MEDS: INSULIN SLIDING SCALE (NOVOLOG) 1 VIAL SQ SCH ×4 (06:50→21:40)
[2022-02-01] MEDS: ASPIRIN COATED 81 MG TABLET.EC PO SCH (11:05)
[2022-02-01] MEDS: CARBAMIDE PEROXIDE 6.5% OTIC 15 ML BOTTLE AD SCH ×2 (11:05→21:37)
[2022-02-01] MEDS: PRENATAL VITAMINS W/ FOLIC ACID TABLET (FP) PO SCH (11:06)
[2022-02-01] MEDS: NIFEdipine E.R. 30 MG TABLET PO SCH (11:06)
[2022-02-01] MEDS: CILOSTAZOL 50 MG TABLET PO SCH (11:07)
[2022-02-01] MEDS: TOLNAFTATE 1% CREAM 15 GM TUBE TP SCH ×2 (11:09→21:40)
[2022-02-01] MEDS: LIDOCAINE 5% TOPICAL PATCH TP SCH (11:09)
[2022-02-01] MEDS ORDERED: INSULIN SLIDING SCALE (NOVOLOG) 1 VIAL SQ ONE (12:45)
[2022-02-01] MEDS: FLUOCINONIDE 0.05% CREAM (15 GM TUBE) TP SCH ×2 (15:57→21:40)
[2022-02-01] MEDS: SPIRONOLACTONE 25 MG TABLET PO SCH (16:00)
[2022-02-01] MEDS: ATORVASTATIN CA 20 MG TABLET (FP) PO SCH (21:35)
[2022-02-01] MEDS: THIAMINE HCL 100 MG TABLET (FP) PO SCH (21:35)
[2022-02-01] MEDS: DOCUSATE SODIUM 100 MG CAPSULE (FP) PO SCH (21:35)
[2022-02-01] MEDS: MELATONIN 5 MG TABLETS PO SCH (21:35)
[2022-02-01] MEDS: LIDOCAINE PATCH REMOVAL MC SCH (21:37)
[2022-02-02] MEDS: ACETAMINOPHEN 325 MG TABLET (FP) PO PRN ×2 (04:20→11:54)
[2022-02-02] MEDS: METHOCARBAMOL 750 MG TABLET PO PRN ×3 (04:20→22:15)
[2022-02-02] MEDS: FUROSEMIDE 20 MG TABLET (FP) PO SCH ×2 (06:21→13:41)
[2022-02-02] MEDS: GABAPENTIN 400 MG CAPSULE PO SCH ×3 (06:21→22:15)
[2022-02-02] MEDS: INSULIN (LEVEMIR) 100 UNITS/ML UNITS SQ SCH ×2 (06:25→22:22)
[2022-02-02] MEDS: INSULIN (NOVOLOG) ASPART 100 UNITS/ML 10ML VIAL SQ SCH ×3 (06:26→16:52)
[2022-02-02] MEDS: INSULIN SLIDING SCALE (NOVOLOG) 1 VIAL SQ SCH ×4 (06:26→22:32)
[2022-02-02] MEDS ORDERED: INSULIN SLIDING SCALE (NOVOLOG) 1 VIAL SQ ONE (06:52)
[2022-02-02] MEDS ORDERED: INSULIN (LEVEMIR) 100 UNITS/ML UNITS SQ ONE (06:52)
[2022-02-02] MEDS: ASPIRIN COATED 81 MG TABLET.EC PO SCH (10:15)
[2022-02-02] MEDS: NIFEdipine E.R. 30 MG TABLET PO SCH (10:15)
[2022-02-02] MEDS: PRENATAL VITAMINS W/ FOLIC ACID TABLET (FP) PO SCH (10:15)
[2022-02-02] MEDS: CILOSTAZOL 50 MG TABLET PO SCH (10:16)
[2022-02-02] MEDS: LIDOCAINE 5% TOPICAL PATCH TP SCH (10:16)
[2022-02-02] MEDS: TOLNAFTATE 1% CREAM 15 GM TUBE TP SCH ×2 (10:18→22:17)
[2022-02-02] MEDS: SPIRONOLACTONE 25 MG TABLET PO SCH (12:37)
[2022-02-02] MEDS: SIMETHICONE 80 MG TAB.CHEW (FP) PO PRN (13:41)
[2022-02-02] MEDS: FLUOCINONIDE 0.05% CREAM (15 GM TUBE) TP SCH ×2 (14:35→22:15)
[2022-02-02] MEDS: CARBAMIDE PEROXIDE 6.5% OTIC 15 ML BOTTLE AD SCH ×2 (14:35→22:22)
[2022-02-02] MEDS: MELATONIN 5 MG TABLETS PO SCH (22:15)
[2022-02-02] MEDS: DOCUSATE SODIUM 100 MG CAPSULE (FP) PO SCH (22:15)
[2022-02-02] MEDS: ATORVASTATIN CA 20 MG TABLET (FP) PO SCH (22:15)
[2022-02-02] MEDS: THIAMINE HCL 100 MG TABLET (FP) PO SCH (22:18)
[2022-02-02] MEDS: LIDOCAINE PATCH REMOVAL MC SCH (22:22)
[2022-02-03] MEDS: GABAPENTIN 400 MG CAPSULE PO SCH ×3 (05:55→21:50)
[2022-02-03] MEDS: METHOCARBAMOL 750 MG TABLET PO PRN ×5 (05:55→21:51)
[2022-02-03] MEDS: FUROSEMIDE 20 MG TABLET (FP) PO SCH ×2 (05:55→13:15)
[2022-02-03] MEDS: INSULIN (LEVEMIR) 100 UNITS/ML UNITS SQ SCH ×2 (07:38→22:01)
[2022-02-03] MEDS: INSULIN (NOVOLOG) ASPART 100 UNITS/ML 10ML VIAL SQ SCH ×3 (07:39→17:29)
[2022-02-03] MEDS: INSULIN SLIDING SCALE (NOVOLOG) 1 VIAL SQ SCH ×4 (07:39→21:58)
[2022-02-03] MEDS: SPIRONOLACTONE 25 MG TABLET PO SCH (10:11)
[2022-02-03] MEDS: ASPIRIN COATED 81 MG TABLET.EC PO SCH (10:11)
[2022-02-03] MEDS: NIFEdipine E.R. 30 MG TABLET PO SCH (10:11)
[2022-02-03] MEDS: PRENATAL VITAMINS W/ FOLIC ACID TABLET (FP) PO SCH (10:11)
[2022-02-03] MEDS: CILOSTAZOL 50 MG TABLET PO SCH (10:12)
[2022-02-03] MEDS: FLUOCINONIDE 0.05% CREAM (15 GM TUBE) TP SCH ×2 (10:13→22:01)
[2022-02-03] MEDS: TOLNAFTATE 1% CREAM 15 GM TUBE TP SCH ×2 (10:13→21:51)
[2022-02-03] MEDS: SIMETHICONE 80 MG TAB.CHEW (FP) PO PRN ×2 (10:14→13:17)
[2022-02-03] MEDS: LIDOCAINE 5% TOPICAL PATCH TP SCH (10:18)
[2022-02-03] MEDS: CARBAMIDE PEROXIDE 6.5% OTIC 15 ML BOTTLE AD SCH ×2 (10:50→22:01)
[2022-02-03] MEDS ORDERED: FUROSEMIDE 20 MG TABLET (FP) PO SCH (19:14)
[2022-02-03] MEDS: DOCUSATE SODIUM 100 MG CAPSULE (FP) PO SCH (21:49)
[2022-02-03] MEDS: MELATONIN 5 MG TABLETS PO SCH (21:50)
[2022-02-03] MEDS: THIAMINE HCL 100 MG TABLET (FP) PO SCH (21:50)
[2022-02-03] MEDS: LIDOCAINE PATCH REMOVAL MC SCH (21:52)
[2022-02-03] MEDS: ATORVASTATIN CA 20 MG TABLET (FP) PO SCH (21:52)
[2022-02-03] MEDS: diphenhydrAMINE HCL 25 MG CAPSULE (FP) PO PRN (21:59)
[2022-02-03] MEDS: MAG HYDROX/AL HYDROX/SIMETH 30 ML UNIT-DOSE CUP PO PRN (22:36)
[2022-02-04] MEDS: GABAPENTIN 400 MG CAPSULE PO SCH ×3 (06:18→21:43)
[2022-02-04] MEDS: FUROSEMIDE 40 MG TABLET (FP) PO SCH ×2 (06:21→13:42)
[2022-02-04] MEDS: METHOCARBAMOL 750 MG TABLET PO PRN ×3 (06:21→21:47)
[2022-02-04] MEDS: INSULIN SLIDING SCALE (NOVOLOG) 1 VIAL SQ SCH ×4 (06:26→21:49)
[2022-02-04] MEDS: INSULIN (NOVOLOG) ASPART 100 UNITS/ML 10ML VIAL SQ SCH ×3 (07:47→17:26)
[2022-02-04] MEDS: INSULIN (LEVEMIR) 100 UNITS/ML UNITS SQ SCH ×2 (07:48→21:47)
[2022-02-04] MEDS: PRENATAL VITAMINS W/ FOLIC ACID TABLET (FP) PO SCH (10:05)
[2022-02-04] MEDS: NIFEdipine E.R. 30 MG TABLET PO SCH (10:05)
[2022-02-04] MEDS: SPIRONOLACTONE 25 MG TABLET PO SCH (10:05)
[2022-02-04] MEDS: ASPIRIN COATED 81 MG TABLET.EC PO SCH (10:05)
[2022-02-04] MEDS: LIDOCAINE 5% TOPICAL PATCH TP SCH (10:08)
[2022-02-04] MEDS: FLUOCINONIDE 0.05% CREAM (15 GM TUBE) TP SCH ×2 (10:10→21:46)
[2022-02-04] MEDS: CARBAMIDE PEROXIDE 6.5% OTIC 15 ML BOTTLE AD SCH ×2 (10:10→21:50)
[2022-02-04] MEDS: TOLNAFTATE 1% CREAM 15 GM TUBE TP SCH ×2 (10:11→21:47)
[2022-02-04 17:21] LABS: ALBUMIN 3.9 g/dl (3.4-5.0); BLOOD UREA NITROGEN 22.5 mg/dL (7-18); CALCIUM 9.7 mg/dL (8.5-10.1)
[2022-02-04 17:26] LABS: CREATININE 1.4 mg/dL (0.55-1.3); PHOSPHOROUS 4.5 mg/dL (2.5-4.9)
[2022-02-04] MEDS: DOCUSATE SODIUM 100 MG CAPSULE (FP) PO SCH (21:42)
[2022-02-04] MEDS: THIAMINE HCL 100 MG TABLET (FP) PO SCH (21:42)
[2022-02-04] MEDS: ATORVASTATIN CA 20 MG TABLET (FP) PO SCH (21:43)
[2022-02-04] MEDS: LIDOCAINE PATCH REMOVAL MC SCH (21:43)
[2022-02-04] MEDS: diphenhydrAMINE HCL 25 MG CAPSULE (FP) PO PRN (21:47)
[2022-02-04] MEDS: MELATONIN 5 MG TABLETS PO SCH (21:50)
[2022-02-05] MEDS: INSULIN (LEVEMIR) 100 UNITS/ML UNITS SQ SCH ×2 (06:17→21:05)
[2022-02-05] MEDS: GABAPENTIN 400 MG CAPSULE PO SCH ×3 (06:19→21:00)
[2022-02-05] MEDS: METHOCARBAMOL 750 MG TABLET PO PRN ×2 (06:19→21:00)
[2022-02-05] MEDS: SIMETHICONE 80 MG TAB.CHEW (FP) PO PRN (06:19)
[2022-02-05] MEDS: FUROSEMIDE 40 MG TABLET (FP) PO SCH ×2 (06:19→14:22)
[2022-02-05] MEDS: INSULIN (NOVOLOG) ASPART 100 UNITS/ML 10ML VIAL SQ SCH ×3 (07:59→16:37)
[2022-02-05] MEDS: INSULIN SLIDING SCALE (NOVOLOG) 1 VIAL SQ SCH ×4 (08:00→21:05)
[2022-02-05] MEDS: NIFEdipine E.R. 30 MG TABLET PO SCH (10:28)
[2022-02-05] MEDS: ASPIRIN COATED 81 MG TABLET.EC PO SCH (10:28)
[2022-02-05] MEDS: SPIRONOLACTONE 25 MG TABLET PO SCH (10:28)
[2022-02-05] MEDS: LIDOCAINE 5% TOPICAL PATCH TP SCH (10:29)
[2022-02-05] MEDS: TOLNAFTATE 1% CREAM 15 GM TUBE TP SCH ×2 (10:30→21:45)
[2022-02-05] MEDS: PRENATAL VITAMINS W/ FOLIC ACID TABLET (FP) PO SCH (10:30)
[2022-02-05] MEDS: FLUOCINONIDE 0.05% CREAM (15 GM TUBE) TP SCH ×2 (14:21→21:45)
[2022-02-05] MEDS: CARBAMIDE PEROXIDE 6.5% OTIC 15 ML BOTTLE AD SCH ×2 (14:22→21:45)
[2022-02-05] MEDS: ATORVASTATIN CA 20 MG TABLET (FP) PO SCH (21:00)
[2022-02-05] MEDS: THIAMINE HCL 100 MG TABLET (FP) PO SCH (21:00)
[2022-02-05] MEDS: DOCUSATE SODIUM 100 MG CAPSULE (FP) PO SCH (21:00)
[2022-02-05] MEDS: diphenhydrAMINE HCL 25 MG CAPSULE (FP) PO PRN (21:03)
[2022-02-05] MEDS: LIDOCAINE PATCH REMOVAL MC SCH (21:05)
[2022-02-05] MEDS: MELATONIN 5 MG TABLETS PO SCH (21:05)
[2022-02-06] MEDS: ACETAMINOPHEN 325 MG TABLET (FP) PO PRN ×2 (02:01→16:32)
[2022-02-06] MEDS: METHOCARBAMOL 750 MG TABLET PO PRN ×3 (06:53→21:27)
[2022-02-06] MEDS: GABAPENTIN 400 MG CAPSULE PO SCH ×3 (06:53→21:27)
[2022-02-06] MEDS: FUROSEMIDE 40 MG TABLET (FP) PO SCH ×2 (06:53→15:11)
[2022-02-06] MEDS: INSULIN (LEVEMIR) 100 UNITS/ML UNITS SQ SCH ×2 (06:54→21:32)
[2022-02-06] MEDS: INSULIN SLIDING SCALE (NOVOLOG) 1 VIAL SQ SCH ×4 (08:19→21:33)
[2022-02-06] MEDS: INSULIN (NOVOLOG) ASPART 100 UNITS/ML 10ML VIAL SQ SCH ×3 (08:19→16:32)
[2022-02-06] MEDS: ASPIRIN COATED 81 MG TABLET.EC PO SCH (10:30)
[2022-02-06] MEDS: NIFEdipine E.R. 30 MG TABLET PO SCH (10:30)
[2022-02-06] MEDS: CARBAMIDE PEROXIDE 6.5% OTIC 15 ML BOTTLE AD SCH ×2 (10:30→21:33)
[2022-02-06] MEDS: PRENATAL VITAMINS W/ FOLIC ACID TABLET (FP) PO SCH (10:30)
[2022-02-06] MEDS: SPIRONOLACTONE 25 MG TABLET PO SCH (10:30)
[2022-02-06] MEDS: FLUOCINONIDE 0.05% CREAM (15 GM TUBE) TP SCH ×2 (10:31→21:28)
[2022-02-06] MEDS: LIDOCAINE 5% TOPICAL PATCH TP SCH (10:31)
[2022-02-06] MEDS: TOLNAFTATE 1% CREAM 15 GM TUBE TP SCH ×2 (10:33→21:33)
[2022-02-06] MEDS: THIAMINE HCL 100 MG TABLET (FP) PO SCH (21:27)
[2022-02-06] MEDS: ATORVASTATIN CA 20 MG TABLET (FP) PO SCH (21:27)
[2022-02-06] MEDS: MELATONIN 5 MG TABLETS PO SCH (21:27)
[2022-02-06] MEDS: DOCUSATE SODIUM 100 MG CAPSULE (FP) PO SCH (21:27)
[2022-02-06] MEDS: diphenhydrAMINE HCL 25 MG CAPSULE (FP) PO PRN (21:29)
[2022-02-06] MEDS: LIDOCAINE PATCH REMOVAL MC SCH (21:33)
[2022-02-07] MEDS: FUROSEMIDE 20 MG TABLET (FP) PO SCH (06:20)
[2022-02-07] MEDS: FUROSEMIDE 40 MG TABLET (FP) PO SCH ×2 (06:21→13:30)
[2022-02-07] MEDS: GABAPENTIN 400 MG CAPSULE PO SCH ×3 (06:21→21:41)
[2022-02-07] MEDS: METHOCARBAMOL 750 MG TABLET PO PRN ×3 (06:21→21:44)
[2022-02-07] MEDS: ACETAMINOPHEN 325 MG TABLET (FP) PO PRN (06:22)
[2022-02-07] MEDS: INSULIN (LEVEMIR) 100 UNITS/ML UNITS SQ SCH ×2 (06:25→21:49)
[2022-02-07] MEDS: INSULIN SLIDING SCALE (NOVOLOG) 1 VIAL SQ SCH ×4 (07:40→21:49)
[2022-02-07] MEDS: INSULIN (NOVOLOG) ASPART 100 UNITS/ML 10ML VIAL SQ SCH ×3 (07:40→17:06)
[2022-02-07] MEDS: TOLNAFTATE 1% CREAM 15 GM TUBE TP SCH ×2 (10:44→21:48)
[2022-02-07] MEDS: LIDOCAINE 5% TOPICAL PATCH TP SCH (10:45)
[2022-02-07] MEDS: ASPIRIN COATED 81 MG TABLET.EC PO SCH (10:46)
[2022-02-07] MEDS: NIFEdipine E.R. 30 MG TABLET PO SCH (10:46)
[2022-02-07] MEDS: FLUOCINONIDE 0.05% CREAM (15 GM TUBE) TP SCH ×2 (10:46→21:49)
[2022-02-07] MEDS: SPIRONOLACTONE 25 MG TABLET PO SCH (10:46)
[2022-02-07] MEDS: CARBAMIDE PEROXIDE 6.5% OTIC 15 ML BOTTLE AD SCH (10:46)
[2022-02-07] MEDS: PRENATAL VITAMINS W/ FOLIC ACID TABLET (FP) PO SCH (10:46)
[2022-02-07] MEDS ORDERED: INSULIN SLIDING SCALE (NOVOLOG) 1 VIAL SQ ONE (10:51)
[2022-02-07] MEDS ORDERED: MENTHOL/PHENOL 1 EACH UD MM PRN (12:40)
[2022-02-07] MEDS: SULFAMETHOXAZOLE/TRIMETHOPRIM 800MG/160MG D.S. TABLET PO SCH (21:41)
[2022-02-07] MEDS: DOCUSATE SODIUM 100 MG CAPSULE (FP) PO SCH (21:42)
[2022-02-07] MEDS: ATORVASTATIN CA 20 MG TABLET (FP) PO SCH (21:42)
[2022-02-07] MEDS: diphenhydrAMINE HCL 25 MG CAPSULE (FP) PO PRN (21:43)
[2022-02-07] MEDS: THIAMINE HCL 100 MG TABLET (FP) PO SCH (21:48)
[2022-02-07] MEDS: LIDOCAINE PATCH REMOVAL MC SCH (21:49)
[2022-02-07] MEDS: MELATONIN 5 MG TABLETS PO SCH (21:49)
[2022-02-08] MEDS: METHOCARBAMOL 750 MG TABLET PO PRN ×3 (06:29→12:26)
[2022-02-08] MEDS: GABAPENTIN 400 MG CAPSULE PO SCH ×3 (06:29→21:48)
[2022-02-08] MEDS: FUROSEMIDE 40 MG TABLET (FP) PO SCH ×2 (06:29→14:22)
[2022-02-08] MEDS: INSULIN (LEVEMIR) 100 UNITS/ML UNITS SQ SCH ×2 (06:30→21:59)
[2022-02-08] MEDS: INSULIN (NOVOLOG) ASPART 100 UNITS/ML 10ML VIAL SQ SCH ×3 (06:31→17:39)
[2022-02-08] MEDS: INSULIN SLIDING SCALE (NOVOLOG) 1 VIAL SQ SCH ×4 (06:49→22:00)
[2022-02-08] MEDS: PRENATAL VITAMINS W/ FOLIC ACID TABLET (FP) PO SCH (10:33)
[2022-02-08] MEDS: ASPIRIN COATED 81 MG TABLET.EC PO SCH (10:33)
[2022-02-08] MEDS: SPIRONOLACTONE 25 MG TABLET PO SCH (10:33)
[2022-02-08] MEDS: TOLNAFTATE 1% CREAM 15 GM TUBE TP SCH ×2 (10:34→22:00)
[2022-02-08] MEDS: NIFEdipine E.R. 30 MG TABLET PO SCH (10:34)
[2022-02-08] MEDS: LIDOCAINE 5% TOPICAL PATCH TP SCH (10:35)
[2022-02-08] MEDS: SULFAMETHOXAZOLE/TRIMETHOPRIM 800MG/160MG D.S. TABLET PO SCH ×2 (10:37→21:48)
[2022-02-08] MEDS: FLUOCINONIDE 0.05% CREAM (15 GM TUBE) TP SCH ×2 (12:50→21:59)
[2022-02-08] MEDS: ATORVASTATIN CA 20 MG TABLET (FP) PO SCH (21:49)
[2022-02-08] MEDS: diphenhydrAMINE HCL 25 MG CAPSULE (FP) PO PRN (21:49)
[2022-02-08] MEDS: THIAMINE HCL 100 MG TABLET (FP) PO SCH (21:49)
[2022-02-08] MEDS: DOCUSATE SODIUM 100 MG CAPSULE (FP) PO SCH (21:49)
[2022-02-08] MEDS: MELATONIN 5 MG TABLETS PO SCH (21:50)
[2022-02-08] MEDS: ACETAMINOPHEN 325 MG TABLET (FP) PO PRN (21:51)
[2022-02-08] MEDS: LIDOCAINE PATCH REMOVAL MC SCH (21:59)
[2022-02-09] MEDS: GABAPENTIN 400 MG CAPSULE PO SCH ×3 (06:29→21:36)
[2022-02-09] MEDS: FUROSEMIDE 40 MG TABLET (FP) PO SCH ×2 (06:30→13:58)
[2022-02-09] MEDS: METHOCARBAMOL 750 MG TABLET PO PRN ×3 (06:30→21:35)
[2022-02-09] MEDS: ACETAMINOPHEN 325 MG TABLET (FP) PO PRN ×2 (06:31→21:37)
[2022-02-09] MEDS: INSULIN (NOVOLOG) ASPART 100 UNITS/ML 10ML VIAL SQ SCH ×3 (07:45→16:48)
[2022-02-09] MEDS: INSULIN (LEVEMIR) 100 UNITS/ML UNITS SQ SCH ×2 (07:45→21:41)
[2022-02-09] MEDS: INSULIN SLIDING SCALE (NOVOLOG) 1 VIAL SQ SCH ×4 (07:46→21:41)
[2022-02-09] MEDS: LIDOCAINE 5% TOPICAL PATCH TP SCH (10:19)
[2022-02-09] MEDS: PRENATAL VITAMINS W/ FOLIC ACID TABLET (FP) PO SCH (10:20)
[2022-02-09] MEDS: SULFAMETHOXAZOLE/TRIMETHOPRIM 800MG/160MG D.S. TABLET PO SCH ×2 (10:20→21:35)
[2022-02-09] MEDS: SPIRONOLACTONE 25 MG TABLET PO SCH (10:20)
[2022-02-09] MEDS: ASPIRIN COATED 81 MG TABLET.EC PO SCH (10:20)
[2022-02-09] MEDS: NIFEdipine E.R. 30 MG TABLET PO SCH (10:20)
[2022-02-09] MEDS: FLUOCINONIDE 0.05% CREAM (15 GM TUBE) TP SCH ×2 (10:22→21:41)
[2022-02-09] MEDS: TOLNAFTATE 1% CREAM 15 GM TUBE TP SCH ×2 (10:22→21:41)
[2022-02-09] MEDS: THIAMINE HCL 100 MG TABLET (FP) PO SCH (21:35)
[2022-02-09] MEDS: MELATONIN 5 MG TABLETS PO SCH (21:36)
[2022-02-09] MEDS: DOCUSATE SODIUM 100 MG CAPSULE (FP) PO SCH (21:36)
[2022-02-09] MEDS: ATORVASTATIN CA 20 MG TABLET (FP) PO SCH (21:36)
[2022-02-09] MEDS: diphenhydrAMINE HCL 25 MG CAPSULE (FP) PO PRN (21:37)
[2022-02-09] MEDS: LIDOCAINE PATCH REMOVAL MC SCH (21:38)
[2022-02-10] MEDS: GABAPENTIN 400 MG CAPSULE PO SCH ×3 (06:29→21:26)
[2022-02-10] MEDS: FUROSEMIDE 40 MG TABLET (FP) PO SCH ×2 (06:29→13:24)
[2022-02-10] MEDS: METHOCARBAMOL 750 MG TABLET PO PRN ×2 (06:29→13:24)
[2022-02-10] MEDS: INSULIN (LEVEMIR) 100 UNITS/ML UNITS SQ SCH ×2 (07:32→21:27)
[2022-02-10] MEDS: INSULIN (NOVOLOG) ASPART 100 UNITS/ML 10ML VIAL SQ SCH ×3 (07:32→17:16)
[2022-02-10] MEDS: INSULIN SLIDING SCALE (NOVOLOG) 1 VIAL SQ SCH ×4 (07:33→21:28)
[2022-02-10] MEDS: PRENATAL VITAMINS W/ FOLIC ACID TABLET (FP) PO SCH (10:20)
[2022-02-10] MEDS: NIFEdipine E.R. 30 MG TABLET PO SCH (10:20)
[2022-02-10] MEDS: SPIRONOLACTONE 25 MG TABLET PO SCH (10:20)
[2022-02-10] MEDS: SULFAMETHOXAZOLE/TRIMETHOPRIM 800MG/160MG D.S. TABLET PO SCH ×2 (10:20→21:26)
[2022-02-10] MEDS: ASPIRIN COATED 81 MG TABLET.EC PO SCH (10:20)
[2022-02-10] MEDS: LIDOCAINE 5% TOPICAL PATCH TP SCH (10:21)
[2022-02-10] MEDS: FLUOCINONIDE 0.05% CREAM (15 GM TUBE) TP SCH ×2 (10:22→21:28)
[2022-02-10] MEDS: TOLNAFTATE 1% CREAM 15 GM TUBE TP SCH ×2 (10:22→21:28)
[2022-02-10 13:11] VITALS: PULSE 98
[2022-02-10] MEDS: ATORVASTATIN CA 20 MG TABLET (FP) PO SCH (21:25)
[2022-02-10] MEDS: DOCUSATE SODIUM 100 MG CAPSULE (FP) PO SCH (21:25)
[2022-02-10] MEDS: MELATONIN 5 MG TABLETS PO SCH (21:25)
[2022-02-10] MEDS: THIAMINE HCL 100 MG TABLET (FP) PO SCH (21:25)
[2022-02-10] MEDS: diphenhydrAMINE HCL 25 MG CAPSULE (FP) PO PRN (21:26)
[2022-02-10] MEDS: LIDOCAINE PATCH REMOVAL MC SCH (21:27)
[2022-02-11] MEDS: METHOCARBAMOL 750 MG TABLET PO PRN (06:39)
[2022-02-11] MEDS: GABAPENTIN 400 MG CAPSULE PO SCH (06:39)
[2022-02-11] MEDS: FUROSEMIDE 40 MG TABLET (FP) PO SCH (06:39)
[2022-02-11] MEDS: ACETAMINOPHEN 325 MG TABLET (FP) PO PRN (06:40)
[2022-02-11] MEDS: INSULIN SLIDING SCALE (NOVOLOG) 1 VIAL SQ SCH (06:45)
[2022-02-11] MEDS: INSULIN (LEVEMIR) 100 UNITS/ML UNITS SQ SCH (06:45)
[2022-02-11 07:21] VITALS: BP 135/89; TEMP 97.1
[2022-02-11] MEDS: INSULIN (NOVOLOG) ASPART 100 UNITS/ML 10ML VIAL SQ SCH (07:45)
[2022-02-11] MEDS: ASPIRIN COATED 81 MG TABLET.EC PO SCH (09:24)
[2022-02-11] MEDS: SULFAMETHOXAZOLE/TRIMETHOPRIM 800MG/160MG D.S. TABLET PO SCH (09:24)
[2022-02-11] MEDS: SPIRONOLACTONE 25 MG TABLET PO SCH (09:25)
[2022-02-11] MEDS: PRENATAL VITAMINS W/ FOLIC ACID TABLET (FP) PO SCH (09:25)
[2022-02-11] MEDS: NIFEdipine E.R. 30 MG TABLET PO SCH (09:26)
== END 2022-02-11 09:39 | disposition home or self-care (01) | DRG 772 ==
LOC: YASAS 13:56 → Y3W 14:00
PROVIDERS: ADMIT Allergy & Immunology; ATTEND Psychiatry & Neurology Psychiatry
PROC: HZ42ZZZ Group Counseling for Substance Abuse Treatment, Cognitive-Behavioral (ICD-10-PCS; principal; 2022-01-24)
DX: F10.20 Alcohol dependence, uncomplicated (principal); F14.20 Cocaine dependence, uncomplicated; F17.210 Nicotine dependence, cigarettes, uncomplicated; I10 Essential (primary) hypertension; E11.9 Type 2 diabetes mellitus without complications; E78.5 Hyperlipidemia, unspecified; R60.0 Localized edema; J02.9 Acute pharyngitis, unspecified; L03.116 Cellulitis of left lower limb; L03.115 Cellulitis of right lower limb; L81.4 Other melanin hyperpigmentation; K59.00 Constipation, unspecified; M54.59 Other low back pain; G89.29 Other chronic pain; N39.498 Other specified urinary incontinence; H61.21 Impacted cerumen, right ear; Z79.4 Long term (current) use of insulin
CPT/HCPCS: 36415; 71045-TC-FY; 73552-TC-LT-FY; 80069; 82962; 83036; 84132

== ENCOUNTER 2022-03-31 10:33 | Inpatient (IN) | payer OTHER ==
[2022-03-31 11:21] VITALS: BMI 25.7
[2022-03-31] MEDS ORDERED: chlordiazePOXIDE HCL 25 MG CAPSULE PO PRN (12:28)
[2022-03-31] MEDS ORDERED: DICYCLOMINE HCL 10 MG CAPSULE PO PRN (12:28)
[2022-03-31] MEDS ORDERED: NICOTINE 10 MG CARTRIDGE (INHALER) IH PRN (12:28)
[2022-03-31] MEDS ORDERED: ACETAMINOPHEN 325 MG TABLET (FP) PO PRN ×2 (12:28)
[2022-03-31] MEDS ORDERED: IBUPROFEN 600 MG TABLET (FP) PO PRN (12:28)
[2022-03-31] MEDS ORDERED: MAGNESIUM HYDROX 2400MG/30ML ORAL SUSPENSION 30 ML CUP PO PRN (12:28)
[2022-03-31] MEDS ORDERED: MAG HYDROX/AL HYDROX/SIMETH 30 ML UNIT-DOSE CUP PO PRN (12:28)
[2022-03-31] MEDS ORDERED: ONDANSETRON *ODT* 4 MG TABLET SL PRN (12:28)
[2022-03-31] MEDS ORDERED: MAGNESIUM CITRATE 300 ML BOTTLE PO PRN (12:28)
[2022-03-31] MEDS ORDERED: IBUPROFEN 400 MG TABLET (FP) PO PRN (12:28)
[2022-03-31] MEDS ORDERED: LOPERAMIDE HCL 2 MG CAPSULE PO PRN (12:28)
[2022-03-31] MEDS ORDERED: BENZOCAINE/MENTHOL (CHLORASEPTIC ) LOZENGE MM PRN (12:28)
[2022-03-31] MEDS ORDERED: BISMUTH SUBSALICYLATE 524 MG/30 ML PO PRN (12:28)
[2022-03-31] MEDS ORDERED: COLLOIDAL OATMEAL 1 BAR EACH TP PRN (12:33)
[2022-03-31] MEDS: GABAPENTIN 400 MG CAPSULE PO SCH ×2 (15:06→22:42)
[2022-03-31] MEDS: PRENATAL VITAMINS W/ FOLIC ACID TABLET (FP) PO SCH (15:07)
[2022-03-31] MEDS: chlordiazePOXIDE HCL 25 MG CAPSULE PO SCH ×3 (15:07→22:42)
[2022-03-31] MEDS: hydrOXYzine PAMOATE 25 MG CAPSULE (FP) PO SCH ×3 (15:07→22:41)
[2022-03-31] MEDS: ASPIRIN COATED 81 MG TABLET.EC PO SCH (15:08)
[2022-03-31] MEDS: FUROSEMIDE 40 MG TABLET (FP) PO SCH (15:58)
[2022-03-31] MEDS: INSULIN SLIDING SCALE (NOVOLOG) 1 VIAL SQ SCH (17:15)
[2022-03-31] MEDS: MELATONIN 5 MG TABLETS PO SCH (22:10)
[2022-03-31] MEDS: FLUOCINONIDE 0.05% CREAM (15 GM TUBE) TP SCH (22:41)
[2022-03-31] MEDS: ATORVASTATIN CA 20 MG TABLET (FP) PO SCH (22:41)
[2022-03-31] MEDS: METHOCARBAMOL 500 MG TABLET PO PRN (22:41)
[2022-03-31] MEDS: THIAMINE HCL 100 MG TABLET (FP) PO SCH (22:41)
[2022-03-31] MEDS: INSULIN (LEVEMIR) 100 UNITS/ML UNITS SQ SCH (23:12)
[2022-04-01] MEDS: chlordiazePOXIDE HCL 25 MG CAPSULE PO SCH ×3 (05:13→18:17)
[2022-04-01] MEDS: GABAPENTIN 400 MG CAPSULE PO SCH ×3 (05:14→21:55)
[2022-04-01] MEDS: hydrOXYzine PAMOATE 25 MG CAPSULE (FP) PO SCH ×5 (05:14→23:29)
[2022-04-01] MEDS: FUROSEMIDE 40 MG TABLET (FP) PO SCH ×2 (05:14→13:24)
[2022-04-01] MEDS: INSULIN SLIDING SCALE (NOVOLOG) 1 VIAL SQ SCH (06:35)
[2022-04-01] MEDS: ASPIRIN COATED 81 MG TABLET.EC PO SCH (10:14)
[2022-04-01] MEDS: PRENATAL VITAMINS W/ FOLIC ACID TABLET (FP) PO SCH (10:14)
[2022-04-01] MEDS: NIFEdipine E.R. 30 MG TABLET PO SCH (10:14)
[2022-04-01] MEDS: METHOCARBAMOL 500 MG TABLET PO PRN (10:14)
[2022-04-01] MEDS: FLUOCINONIDE 0.05% CREAM (15 GM TUBE) TP SCH ×2 (10:15→21:58)
[2022-04-01 10:26] LABS: HEMATOCRIT 45.1 % (35.4-49); HEMOGLOBIN 15.5 GM/dL (11.7-16.9); MCH 31.2 pg (25.7-33.7); MCHC 34.3 g/dl (32.0-35.9); MEAN PLT VOLUME 9.8 fl (7.5-11.1); PLATELET COUNT 262 10^3/uL (134-434); RBC 4.95 M/mm3 (4.00-5.60); RDW 13.7 % (11.9-15.9); WHITE BLOOD COUNT 6.6 K/mm3 (4.0-10.0)
[2022-04-01 10:27] LABS: CALCIUM 9.3 mg/dL (8.5-10.1)
[2022-04-01 10:28] LABS: ALBUMIN 3.6 g/dl (3.4-5.0); BLOOD UREA NITROGEN 22.6 mg/dL (7-18)
[2022-04-01 10:35] LABS: CREATININE 2.4 mg/dL (0.55-1.3); TOT PROT 7.1 g/dl (6.4-8.2)
[2022-04-01] MEDS: INSULIN (NOVOLOG) ASPART 100 UNITS/ML 10ML VIAL SQ SCH ×2 (16:55→21:46)
[2022-04-01] MEDS ORDERED: INSULIN (NOVOLOG) ASPART 100 UNITS/ML 10ML VIAL ONE ×2 (16:57→21:50)
[2022-04-01] MEDS: INSULIN (LEVEMIR) 100 UNITS/ML UNITS SQ SCH (21:51)
[2022-04-01] MEDS: THIAMINE HCL 100 MG TABLET (FP) PO SCH (21:55)
[2022-04-01] MEDS: ATORVASTATIN CA 20 MG TABLET (FP) PO SCH (21:56)
[2022-04-01] MEDS: MELATONIN 5 MG TABLETS PO SCH (23:29)
[2022-04-02] MEDS: FUROSEMIDE 40 MG TABLET (FP) PO SCH ×2 (06:10→13:39)
[2022-04-02] MEDS: GABAPENTIN 400 MG CAPSULE PO SCH ×3 (06:10→22:01)
[2022-04-02] MEDS: chlordiazePOXIDE HCL 25 MG CAPSULE PO SCH ×4 (06:10→22:02)
[2022-04-02] MEDS: METHOCARBAMOL 500 MG TABLET PO PRN ×2 (06:12→22:01)
[2022-04-02] MEDS: hydrOXYzine PAMOATE 25 MG CAPSULE (FP) PO SCH ×5 (06:13→22:01)
[2022-04-02] MEDS ORDERED: INSULIN (NOVOLOG) ASPART 100 UNITS/ML 10ML VIAL ONE ×4 (08:06→22:05)
[2022-04-02] MEDS: INSULIN (NOVOLOG) ASPART 100 UNITS/ML 10ML VIAL SQ SCH ×4 (08:13→22:05)
[2022-04-02] MEDS: PRENATAL VITAMINS W/ FOLIC ACID TABLET (FP) PO SCH (10:32)
[2022-04-02] MEDS: ASPIRIN COATED 81 MG TABLET.EC PO SCH (10:32)
[2022-04-02] MEDS: NIFEdipine E.R. 30 MG TABLET PO SCH (10:32)
[2022-04-02] MEDS: FLUOCINONIDE 0.05% CREAM (15 GM TUBE) TP SCH ×2 (11:06→22:02)
[2022-04-02] MEDS: THIAMINE HCL 100 MG TABLET (FP) PO SCH (22:01)
[2022-04-02] MEDS: ATORVASTATIN CA 20 MG TABLET (FP) PO SCH (22:01)
[2022-04-02] MEDS: MELATONIN 5 MG TABLETS PO SCH (22:01)
[2022-04-02] MEDS: INSULIN (LEVEMIR) 100 UNITS/ML UNITS SQ SCH (22:05)
[2022-04-03] MEDS ORDERED: chlordiazePOXIDE HCL 10 MG CAPSULE PO PRN
[2022-04-03] MEDS ORDERED: INSULIN (NOVOLOG) ASPART 100 UNITS/ML 10ML VIAL ONE ×4 (06:29→22:15)
[2022-04-03] MEDS: hydrOXYzine PAMOATE 25 MG CAPSULE (FP) PO SCH ×5 (06:29→22:18)
[2022-04-03] MEDS: GABAPENTIN 400 MG CAPSULE PO SCH ×3 (06:29→22:18)
[2022-04-03] MEDS: FUROSEMIDE 40 MG TABLET (FP) PO SCH ×2 (06:29→14:44)
[2022-04-03] MEDS: chlordiazePOXIDE HCL 10 MG CAPSULE PO SCH ×4 (06:30→22:19)
[2022-04-03] MEDS: INSULIN (NOVOLOG) ASPART 100 UNITS/ML 10ML VIAL SQ SCH ×4 (06:31→22:17)
[2022-04-03] MEDS ORDERED: LOPERAMIDE HCL 2 MG CAPSULE PO ONE (08:51)
[2022-04-03] MEDS ORDERED: BISMUTH SUBSALICYLATE 262 MG/15 ML BTL PO ONE (08:51)
[2022-04-03] MEDS ORDERED: DICYCLOMINE HCL 20 MG TABLET PO ONE (10:36)
[2022-04-03] MEDS: ASPIRIN COATED 81 MG TABLET.EC PO SCH (11:11)
[2022-04-03] MEDS: NIFEdipine E.R. 30 MG TABLET PO SCH (11:11)
[2022-04-03] MEDS: PRENATAL VITAMINS W/ FOLIC ACID TABLET (FP) PO SCH (11:11)
[2022-04-03] MEDS: FLUOCINONIDE 0.05% CREAM (15 GM TUBE) TP SCH ×2 (11:12→23:18)
[2022-04-03] MEDS ORDERED: DICYCLOMINE HCL 10 MG CAPSULE PO ONE (14:00)
[2022-04-03] MEDS: SIMETHICONE 80 MG TAB.CHEW (FP) PO SCH ×4 (14:44→23:19)
[2022-04-03] MEDS: INSULIN (LEVEMIR) 100 UNITS/ML UNITS SQ SCH (22:18)
[2022-04-03] MEDS: MELATONIN 5 MG TABLETS PO SCH (22:18)
[2022-04-03] MEDS: THIAMINE HCL 100 MG TABLET (FP) PO SCH (22:18)
[2022-04-03] MEDS: METHOCARBAMOL 500 MG TABLET PO PRN (22:18)
[2022-04-03] MEDS: ATORVASTATIN CA 20 MG TABLET (FP) PO SCH (22:18)
[2022-04-04] MEDS ORDERED: INSULIN (NOVOLOG) ASPART 100 UNITS/ML 10ML VIAL ONE ×3 (05:44→21:55)
[2022-04-04] MEDS: chlordiazePOXIDE HCL 10 MG CAPSULE PO SCH ×2 (05:46→16:59)
[2022-04-04] MEDS: hydrOXYzine PAMOATE 25 MG CAPSULE (FP) PO SCH ×5 (05:46→21:56)
[2022-04-04] MEDS: FUROSEMIDE 40 MG TABLET (FP) PO SCH ×2 (05:46→15:25)
[2022-04-04] MEDS: GABAPENTIN 400 MG CAPSULE PO SCH ×3 (05:46→21:56)
[2022-04-04] MEDS: INSULIN (NOVOLOG) ASPART 100 UNITS/ML 10ML VIAL SQ SCH ×4 (06:52→23:05)
[2022-04-04] MEDS: FLUOCINONIDE 0.05% CREAM (15 GM TUBE) TP SCH ×2 (10:15→21:59)
[2022-04-04] MEDS: SIMETHICONE 80 MG TAB.CHEW (FP) PO SCH ×4 (10:15→21:57)
[2022-04-04] MEDS: NIFEdipine E.R. 30 MG TABLET PO SCH (10:16)
[2022-04-04] MEDS: PRENATAL VITAMINS W/ FOLIC ACID TABLET (FP) PO SCH (10:16)
[2022-04-04] MEDS: ASPIRIN COATED 81 MG TABLET.EC PO SCH (10:16)
[2022-04-04 12:24] LABS: CREATININE 1.9 mg/dL (0.55-1.3)
[2022-04-04 12:26] LABS: BILIRUBIN,TOTAL 0.7 mg/dL (0.2-1)
[2022-04-04] MEDS: PSYLLIUM 5.85 GM PACKET PO SCH (15:30)
[2022-04-04] MEDS ORDERED: INSULIN (NOVOLOG MIX 70/30) 100 UNITS/ML MDV SQ ONE ×2 (16:54→17:05)
[2022-04-04] MEDS: ATORVASTATIN CA 20 MG TABLET (FP) PO SCH (21:56)
[2022-04-04] MEDS: THIAMINE HCL 100 MG TABLET (FP) PO SCH (21:56)
[2022-04-04] MEDS: MELATONIN 5 MG TABLETS PO SCH (21:57)
[2022-04-04] MEDS: INSULIN (LEVEMIR) 100 UNITS/ML UNITS SQ SCH (21:57)
[2022-04-04] MEDS ORDERED: INSULIN (NOVOLOG) ASPART 100 UNITS/ML 10ML VIAL SQ ONE (22:00)
[2022-04-05] MEDS ORDERED: chlordiazePOXIDE HCL 10 MG CAPSULE PO ONE (05:00)
[2022-04-05] MEDS: GABAPENTIN 400 MG CAPSULE PO SCH (05:02)
[2022-04-05] MEDS: hydrOXYzine PAMOATE 25 MG CAPSULE (FP) PO SCH ×2 (05:03→10:27)
[2022-04-05] MEDS: FUROSEMIDE 40 MG TABLET (FP) PO SCH (06:29)
[2022-04-05] MEDS: INSULIN (NOVOLOG) ASPART 100 UNITS/ML 10ML VIAL SQ SCH ×2 (06:30→11:41)
[2022-04-05] MEDS ORDERED: INSULIN (NOVOLOG) ASPART 100 UNITS/ML 10ML VIAL ONE ×2 (06:47→11:41)
[2022-04-05] MEDS: ASPIRIN COATED 81 MG TABLET.EC PO SCH (10:26)
[2022-04-05] MEDS: PRENATAL VITAMINS W/ FOLIC ACID TABLET (FP) PO SCH (10:26)
[2022-04-05] MEDS: NIFEdipine E.R. 30 MG TABLET PO SCH (10:27)
[2022-04-05] MEDS: PSYLLIUM 5.85 GM PACKET PO SCH (10:27)
[2022-04-05] MEDS: FLUOCINONIDE 0.05% CREAM (15 GM TUBE) TP SCH (10:28)
[2022-04-05 12:28] VITALS: BP 113/75; PULSE 98; RESP 18; TEMP 97.8
== END 2022-04-05 13:11 | disposition other institution (70) | DRG 774 ==
LOC: YASAS 10:33 → Y6N 14:40
PROVIDERS: ADMIT Allergy & Immunology; ATTEND Surgery
PROC: HZ2ZZZZ Detoxification Services for Substance Abuse Treatment (ICD-10-PCS; principal; 2022-03-31)
DX: F10.230 Alcohol dependence with withdrawal, uncomplicated (principal); F14.20 Cocaine dependence, uncomplicated; F13.230 Sedative, hypnotic or anxiolytic dependence with withdrawal, uncomplicated; F17.210 Nicotine dependence, cigarettes, uncomplicated; G62.9 Polyneuropathy, unspecified; I10 Essential (primary) hypertension; E11.9 Type 2 diabetes mellitus without complications; Z79.4 Long term (current) use of insulin; M25.562 Pain in left knee; Z85.46 Personal history of malignant neoplasm of prostate; Z88.0 Allergy status to penicillin; Z88.6 Allergy status to analgesic agent; Z91.011 Allergy to milk products
CPT/HCPCS: 36415; 80053; 82247; 82565; 82962; 84520; 85027; 86780; C9803-CS; Q0162; U0003; U0005

== ENCOUNTER 2022-04-05 13:04 | Inpatient (IN) | payer OTHER ==
[2022-04-05] MEDS ORDERED: P-EPHED 60MG/TRIPROLIDI 2.5MG TABLET PO PRN (14:28)
[2022-04-05] MEDS ORDERED: MAG HYDROX/AL HYDROX/SIMETH 30 ML UNIT-DOSE CUP PO PRN (14:28)
[2022-04-05] MEDS ORDERED: MAGNESIUM HYDROX 2400MG/30ML ORAL SUSPENSION 30 ML CUP PO PRN (14:28)
[2022-04-05] MEDS ORDERED: BENZOCAINE/MENTHOL (CHLORASEPTIC ) LOZENGE MM PRN (14:28)
[2022-04-05] MEDS ORDERED: IBUPROFEN 400 MG TABLET (FP) PO PRN (14:28)
[2022-04-05] MEDS ORDERED: guaiFENesin 200 MG/10 ML 10 ML UNIT-DOSE CUPS PO PRN (14:28)
[2022-04-05] MEDS ORDERED: NICOTINE 10 MG CARTRIDGE (INHALER) IH PRN (14:28)
[2022-04-05] MEDS ORDERED: MAGNESIUM CITRATE 300 ML BOTTLE PO PRN (14:28)
[2022-04-05] MEDS: INSULIN SLIDING SCALE (NOVOLOG) 1 VIAL SQ SCH ×2 (17:04→21:40)
[2022-04-05] MEDS ORDERED: INSULIN (NOVOLOG) ASPART 100 UNITS/ML 10ML VIAL ONE (17:15)
[2022-04-05] MEDS: THIAMINE HCL 100 MG TABLET (FP) PO SCH (21:35)
[2022-04-05] MEDS: ATORVASTATIN CA 20 MG TABLET (FP) PO SCH (21:35)
[2022-04-05] MEDS: GABAPENTIN 400 MG CAPSULE PO SCH (21:35)
[2022-04-05] MEDS: ACETAMINOPHEN 325 MG TABLET (FP) PO PRN (21:36)
[2022-04-05] MEDS: MELATONIN 5 MG TABLETS PO SCH (21:36)
[2022-04-05] MEDS: INSULIN (LEVEMIR) 100 UNITS/ML UNITS SQ SCH (21:39)
[2022-04-05] MEDS: FLUOCINONIDE 0.05% CREAM (15 GM TUBE) TP SCH (23:23)
[2022-04-06] MEDS: INSULIN SLIDING SCALE (NOVOLOG) 1 VIAL SQ SCH ×4 (06:47→21:11)
[2022-04-06] MEDS: FUROSEMIDE 40 MG TABLET (FP) PO SCH ×2 (06:48→13:03)
[2022-04-06] MEDS ORDERED: INSULIN (NOVOLOG) ASPART 100 UNITS/ML 10ML VIAL ONE ×4 (06:48→23:27)
[2022-04-06] MEDS: GABAPENTIN 400 MG CAPSULE PO SCH ×3 (06:48→21:06)
[2022-04-06] MEDS: FLUOCINONIDE 0.05% CREAM (15 GM TUBE) TP SCH ×2 (09:17→21:12)
[2022-04-06] MEDS: ASPIRIN COATED 81 MG TABLET.EC PO SCH (09:17)
[2022-04-06] MEDS: NIFEdipine E.R. 30 MG TABLET PO SCH (09:18)
[2022-04-06] MEDS: NICOTINE 7 MG/24 HOURS TOPICAL PATCH TD SCH (09:18)
[2022-04-06] MEDS: PRENATAL VITAMINS W/ FOLIC ACID TABLET (FP) PO SCH (09:18)
[2022-04-06 11:28] LABS: HIV INTERPRETATION NEGATIVE (NEGATIVE)
[2022-04-06] MEDS: ATORVASTATIN CA 20 MG TABLET (FP) PO SCH (21:06)
[2022-04-06] MEDS: THIAMINE HCL 100 MG TABLET (FP) PO SCH (21:06)
[2022-04-06] MEDS: MELATONIN 5 MG TABLETS PO SCH (21:07)
[2022-04-06] MEDS: ACETAMINOPHEN 325 MG TABLET (FP) PO PRN (21:08)
[2022-04-06] MEDS: INSULIN (LEVEMIR) 100 UNITS/ML UNITS SQ SCH (21:10)
[2022-04-06] MEDS ORDERED: INSULIN (LEVEMIR) 100 UNITS/ML UNITS SQ ONE (23:27)
[2022-04-07] MEDS: INSULIN SLIDING SCALE (NOVOLOG) 1 VIAL SQ SCH ×5 (07:08→23:55)
[2022-04-07] MEDS ORDERED: INSULIN (NOVOLOG) ASPART 100 UNITS/ML 10ML VIAL ONE ×4 (07:09→23:37)
[2022-04-07] MEDS: FUROSEMIDE 40 MG TABLET (FP) PO SCH ×2 (07:15→13:08)
[2022-04-07] MEDS: GABAPENTIN 400 MG CAPSULE PO SCH ×5 (07:15→23:55)
[2022-04-07] MEDS: FLUOCINONIDE 0.05% CREAM (15 GM TUBE) TP SCH (09:41)
[2022-04-07] MEDS: ASPIRIN COATED 81 MG TABLET.EC PO SCH (09:41)
[2022-04-07] MEDS: NIFEdipine E.R. 30 MG TABLET PO SCH (09:42)
[2022-04-07] MEDS: NICOTINE 7 MG/24 HOURS TOPICAL PATCH TD SCH (09:42)
[2022-04-07] MEDS: PRENATAL VITAMINS W/ FOLIC ACID TABLET (FP) PO SCH (09:42)
[2022-04-07] MEDS: THIAMINE HCL 100 MG TABLET (FP) PO SCH ×3 (21:38→23:55)
[2022-04-07] MEDS: ATORVASTATIN CA 20 MG TABLET (FP) PO SCH ×3 (21:38→23:55)
[2022-04-07] MEDS: MELATONIN 5 MG TABLETS PO SCH ×2 (21:38→22:51)
[2022-04-07] MEDS: INSULIN (LEVEMIR) 100 UNITS/ML UNITS SQ SCH ×2 (21:41→23:55)
[2022-04-07] MEDS: FLUOCINONIDE 0.05% CREAM (60 GM TUBE) TP SCH (22:51)
[2022-04-07] MEDS ORDERED: INSULIN (LEVEMIR) 100 UNITS/ML UNITS SQ ONE (23:37)
[2022-04-08] MEDS ORDERED: INSULIN (LEVEMIR) 100 UNITS/ML UNITS SQ ONE ×2 (00:09→21:47)
[2022-04-08] MEDS ORDERED: INSULIN (NOVOLOG) ASPART 100 UNITS/ML 10ML VIAL ONE ×5 (00:11→21:47)
[2022-04-08] MEDS: GABAPENTIN 400 MG CAPSULE PO SCH ×3 (06:39→21:27)
[2022-04-08] MEDS: FUROSEMIDE 40 MG TABLET (FP) PO SCH ×2 (06:39→14:34)
[2022-04-08] MEDS: INSULIN SLIDING SCALE (NOVOLOG) 1 VIAL SQ SCH ×4 (06:40→21:30)
[2022-04-08] MEDS: NICOTINE 7 MG/24 HOURS TOPICAL PATCH TD SCH (10:36)
[2022-04-08] MEDS: PRENATAL VITAMINS W/ FOLIC ACID TABLET (FP) PO SCH (10:36)
[2022-04-08] MEDS: ASPIRIN COATED 81 MG TABLET.EC PO SCH (10:36)
[2022-04-08] MEDS: FLUOCINONIDE 0.05% CREAM (60 GM TUBE) TP SCH ×2 (10:36→21:31)
[2022-04-08] MEDS: NIFEdipine E.R. 30 MG TABLET PO SCH (10:36)
[2022-04-08] MEDS ORDERED: INSULIN (NOVOLOG) ASPART 100 UNITS/ML 10ML VIAL SQ ONE (12:30)
[2022-04-08] MEDS: THIAMINE HCL 100 MG TABLET (FP) PO SCH (21:27)
[2022-04-08] MEDS: MELATONIN 5 MG TABLETS PO SCH (21:27)
[2022-04-08] MEDS: ATORVASTATIN CA 20 MG TABLET (FP) PO SCH (21:27)
[2022-04-08] MEDS: INSULIN (LEVEMIR) 100 UNITS/ML UNITS SQ SCH (21:27)
[2022-04-09] MEDS: FUROSEMIDE 40 MG TABLET (FP) PO SCH ×2 (07:04→13:46)
[2022-04-09] MEDS: GABAPENTIN 400 MG CAPSULE PO SCH ×3 (07:04→21:33)
[2022-04-09] MEDS: INSULIN SLIDING SCALE (NOVOLOG) 1 VIAL SQ SCH ×4 (07:06→21:34)
[2022-04-09] MEDS ORDERED: INSULIN (NOVOLOG) ASPART 100 UNITS/ML 10ML VIAL ONE ×3 (07:06→17:05)
[2022-04-09] MEDS: ASPIRIN COATED 81 MG TABLET.EC PO SCH (09:19)
[2022-04-09] MEDS: PRENATAL VITAMINS W/ FOLIC ACID TABLET (FP) PO SCH (09:19)
[2022-04-09] MEDS: NICOTINE 7 MG/24 HOURS TOPICAL PATCH TD SCH (09:20)
[2022-04-09] MEDS: FLUOCINONIDE 0.05% CREAM (60 GM TUBE) TP SCH ×2 (09:20→21:35)
[2022-04-09] MEDS: NIFEdipine E.R. 30 MG TABLET PO SCH (09:30)
[2022-04-09] MEDS: LOPERAMIDE HCL 2 MG CAPSULE PO PRN (21:33)
[2022-04-09] MEDS: hydrOXYzine PAMOATE 25 MG CAPSULE (FP) PO PRN (21:33)
[2022-04-09] MEDS: THIAMINE HCL 100 MG TABLET (FP) PO SCH (21:33)
[2022-04-09] MEDS: INSULIN (LEVEMIR) 100 UNITS/ML UNITS SQ SCH (21:34)
[2022-04-09] MEDS: MELATONIN 5 MG TABLETS PO SCH (21:34)
[2022-04-09] MEDS: ATORVASTATIN CA 20 MG TABLET (FP) PO SCH (21:36)
[2022-04-10] MEDS: GABAPENTIN 400 MG CAPSULE PO SCH ×3 (07:26→21:16)
[2022-04-10] MEDS: FUROSEMIDE 40 MG TABLET (FP) PO SCH ×2 (07:27→13:48)
[2022-04-10] MEDS: INSULIN SLIDING SCALE (NOVOLOG) 1 VIAL SQ SCH ×4 (07:29→21:58)
[2022-04-10] MEDS ORDERED: INSULIN (NOVOLOG) ASPART 100 UNITS/ML 10ML VIAL ONE ×3 (07:34→17:02)
[2022-04-10] MEDS: PRENATAL VITAMINS W/ FOLIC ACID TABLET (FP) PO SCH (10:07)
[2022-04-10] MEDS: NIFEdipine E.R. 30 MG TABLET PO SCH (10:07)
[2022-04-10] MEDS: ASPIRIN COATED 81 MG TABLET.EC PO SCH (10:07)
[2022-04-10] MEDS: FLUOCINONIDE 0.05% CREAM (60 GM TUBE) TP SCH ×2 (10:08→21:59)
[2022-04-10] MEDS: NICOTINE 7 MG/24 HOURS TOPICAL PATCH TD SCH (10:08)
[2022-04-10] MEDS: LOPERAMIDE HCL 2 MG CAPSULE PO PRN (10:09)
[2022-04-10] MEDS: NYSTATIN 500,000 UNITS/5 ML SUSPENSION PO SCH ×2 (18:06→18:51)
[2022-04-10] MEDS: THIAMINE HCL 100 MG TABLET (FP) PO SCH (21:16)
[2022-04-10] MEDS: ATORVASTATIN CA 20 MG TABLET (FP) PO SCH (21:16)
[2022-04-10] MEDS: ACETAMINOPHEN 325 MG TABLET (FP) PO PRN (21:17)
[2022-04-10] MEDS: INSULIN (LEVEMIR) 100 UNITS/ML UNITS SQ SCH (21:57)
[2022-04-10] MEDS: MELATONIN 5 MG TABLETS PO SCH (21:59)
[2022-04-11] MEDS: NYSTATIN 500,000 UNITS/5 ML SUSPENSION PO SCH ×4 (00:21→19:25)
[2022-04-11] MEDS: INSULIN SLIDING SCALE (NOVOLOG) 1 VIAL SQ SCH ×4 (07:22→21:58)
[2022-04-11] MEDS ORDERED: INSULIN (NOVOLOG) ASPART 100 UNITS/ML 10ML VIAL ONE ×3 (07:23→16:50)
[2022-04-11] MEDS: GABAPENTIN 400 MG CAPSULE PO SCH ×3 (07:24→22:00)
[2022-04-11] MEDS: FUROSEMIDE 40 MG TABLET (FP) PO SCH ×2 (07:24→14:42)
[2022-04-11] MEDS: ACETAMINOPHEN 325 MG TABLET (FP) PO PRN ×2 (07:25→22:00)
[2022-04-11] MEDS: FLUOCINONIDE 0.05% CREAM (60 GM TUBE) TP SCH ×2 (10:04→21:57)
[2022-04-11] MEDS: PRENATAL VITAMINS W/ FOLIC ACID TABLET (FP) PO SCH (10:05)
[2022-04-11] MEDS: NIFEdipine E.R. 30 MG TABLET PO SCH (10:05)
[2022-04-11] MEDS: ASPIRIN COATED 81 MG TABLET.EC PO SCH (10:05)
[2022-04-11] MEDS: NICOTINE 7 MG/24 HOURS TOPICAL PATCH TD SCH (10:06)
[2022-04-11] MEDS: ATORVASTATIN CA 20 MG TABLET (FP) PO SCH (22:00)
[2022-04-11] MEDS: MELATONIN 5 MG TABLETS PO SCH (22:00)
[2022-04-11] MEDS: THIAMINE HCL 100 MG TABLET (FP) PO SCH (22:00)
[2022-04-11] MEDS: INSULIN (LEVEMIR) 100 UNITS/ML UNITS SQ SCH (22:29)
[2022-04-12] MEDS: NYSTATIN 500,000 UNITS/5 ML SUSPENSION PO SCH ×4 (00:04→18:30)
[2022-04-12] MEDS: INSULIN SLIDING SCALE (NOVOLOG) 1 VIAL SQ SCH ×4 (06:37→21:31)
[2022-04-12] MEDS ORDERED: INSULIN (NOVOLOG) ASPART 100 UNITS/ML 10ML VIAL ONE ×4 (06:37→22:42)
[2022-04-12] MEDS: GABAPENTIN 400 MG CAPSULE PO SCH ×3 (06:38→21:29)
[2022-04-12] MEDS: FUROSEMIDE 40 MG TABLET (FP) PO SCH ×2 (06:38→14:10)
[2022-04-12] MEDS: ASPIRIN COATED 81 MG TABLET.EC PO SCH (10:17)
[2022-04-12] MEDS: FLUOCINONIDE 0.05% CREAM (60 GM TUBE) TP SCH ×2 (10:17→21:38)
[2022-04-12] MEDS: PRENATAL VITAMINS W/ FOLIC ACID TABLET (FP) PO SCH (10:18)
[2022-04-12] MEDS: NIFEdipine E.R. 30 MG TABLET PO SCH (10:19)
[2022-04-12] MEDS: NICOTINE 7 MG/24 HOURS TOPICAL PATCH TD SCH (10:23)
[2022-04-12] MEDS: ACETAMINOPHEN 325 MG TABLET (FP) PO PRN (14:12)
[2022-04-12] MEDS: THIAMINE HCL 100 MG TABLET (FP) PO SCH (21:27)
[2022-04-12] MEDS: MELATONIN 5 MG TABLETS PO SCH (21:27)
[2022-04-12] MEDS: ATORVASTATIN CA 20 MG TABLET (FP) PO SCH (21:29)
[2022-04-12] MEDS: INSULIN (LEVEMIR) 100 UNITS/ML UNITS SQ SCH (21:29)
[2022-04-12] MEDS: hydrOXYzine PAMOATE 25 MG CAPSULE (FP) PO PRN (21:29)
[2022-04-12] MEDS ORDERED: INSULIN (LEVEMIR) 100 UNITS/ML UNITS SQ ONE (22:42)
[2022-04-13] MEDS: NYSTATIN 500,000 UNITS/5 ML SUSPENSION PO SCH ×4 (00:25→17:35)
[2022-04-13] MEDS: INSULIN SLIDING SCALE (NOVOLOG) 1 VIAL SQ SCH ×4 (07:21→21:49)
[2022-04-13] MEDS: GABAPENTIN 400 MG CAPSULE PO SCH ×3 (07:22→21:36)
[2022-04-13] MEDS ORDERED: INSULIN (NOVOLOG) ASPART 100 UNITS/ML 10ML VIAL ONE ×2 (07:22→21:54)
[2022-04-13] MEDS: FUROSEMIDE 40 MG TABLET (FP) PO SCH ×2 (07:23→14:03)
[2022-04-13] MEDS: PRENATAL VITAMINS W/ FOLIC ACID TABLET (FP) PO SCH (10:27)
[2022-04-13] MEDS: ASPIRIN COATED 81 MG TABLET.EC PO SCH (10:27)
[2022-04-13] MEDS: NIFEdipine E.R. 30 MG TABLET PO SCH (10:28)
[2022-04-13] MEDS: FLUOCINONIDE 0.05% CREAM (60 GM TUBE) TP SCH ×2 (10:30→21:40)
[2022-04-13] MEDS: INSULIN (NOVOLOG) ASPART 100 UNITS/ML 10ML VIAL SQ SCH ×2 (11:46→18:14)
[2022-04-13] MEDS: TOLNAFTATE 1% CREAM 15 GM TUBE TP SCH ×2 (11:48→21:37)
[2022-04-13] MEDS: CARBAMIDE PEROXIDE 6.5% OTIC 15 ML BOTTLE AU SCH ×2 (11:59→21:36)
[2022-04-13] MEDS: THIAMINE HCL 100 MG TABLET (FP) PO SCH (21:36)
[2022-04-13] MEDS: hydrOXYzine PAMOATE 25 MG CAPSULE (FP) PO PRN (21:36)
[2022-04-13] MEDS: MELATONIN 5 MG TABLETS PO SCH (21:36)
[2022-04-13] MEDS: INSULIN (LEVEMIR) 100 UNITS/ML UNITS SQ SCH (21:37)
[2022-04-13] MEDS: ATORVASTATIN CA 20 MG TABLET (FP) PO SCH (21:41)
[2022-04-13] MEDS ORDERED: INSULIN (LEVEMIR) 100 UNITS/ML UNITS SQ ONE (21:54)
[2022-04-14] MEDS: NYSTATIN 500,000 UNITS/5 ML SUSPENSION PO SCH ×4 (00:30→19:04)
[2022-04-14] MEDS ORDERED: INSULIN (NOVOLOG) ASPART 100 UNITS/ML 10ML VIAL ONE ×3 (07:11→21:46)
[2022-04-14] MEDS: FUROSEMIDE 40 MG TABLET (FP) PO SCH ×2 (07:12→14:12)
[2022-04-14] MEDS: INSULIN SLIDING SCALE (NOVOLOG) 1 VIAL SQ SCH ×4 (07:12→21:38)
[2022-04-14] MEDS: GABAPENTIN 400 MG CAPSULE PO SCH ×3 (07:12→21:34)
[2022-04-14] MEDS: NIFEdipine E.R. 30 MG TABLET PO SCH (09:34)
[2022-04-14] MEDS: ASPIRIN COATED 81 MG TABLET.EC PO SCH (09:34)
[2022-04-14] MEDS: FLUOCINONIDE 0.05% CREAM (60 GM TUBE) TP SCH ×2 (09:35→21:38)
[2022-04-14] MEDS: CARBAMIDE PEROXIDE 6.5% OTIC 15 ML BOTTLE AU SCH ×2 (09:35→21:38)
[2022-04-14] MEDS: PRENATAL VITAMINS W/ FOLIC ACID TABLET (FP) PO SCH (09:35)
[2022-04-14] MEDS: TOLNAFTATE 1% CREAM 15 GM TUBE TP SCH ×2 (09:35→21:38)
[2022-04-14] MEDS: INSULIN (NOVOLOG) ASPART 100 UNITS/ML 10ML VIAL SQ SCH ×2 (12:08→16:47)
[2022-04-14] MEDS: THIAMINE HCL 100 MG TABLET (FP) PO SCH (21:33)
[2022-04-14] MEDS: MELATONIN 5 MG TABLETS PO SCH (21:33)
[2022-04-14] MEDS: ATORVASTATIN CA 20 MG TABLET (FP) PO SCH (21:35)
[2022-04-14] MEDS: INSULIN (LEVEMIR) 100 UNITS/ML UNITS SQ SCH (21:35)
[2022-04-14] MEDS ORDERED: INSULIN (LEVEMIR) 100 UNITS/ML UNITS SQ ONE (21:47)
[2022-04-15] MEDS: NYSTATIN 500,000 UNITS/5 ML SUSPENSION PO SCH ×4 (00:30→18:04)
[2022-04-15] MEDS: GABAPENTIN 400 MG CAPSULE PO SCH ×3 (07:45→22:01)
[2022-04-15] MEDS: FUROSEMIDE 40 MG TABLET (FP) PO SCH ×2 (07:45→14:02)
[2022-04-15] MEDS: INSULIN SLIDING SCALE (NOVOLOG) 1 VIAL SQ SCH ×4 (07:46→22:01)
[2022-04-15] MEDS ORDERED: INSULIN (NOVOLOG) ASPART 100 UNITS/ML 10ML VIAL ONE ×2 (07:57→16:57)
[2022-04-15] MEDS: ASPIRIN COATED 81 MG TABLET.EC PO SCH (10:18)
[2022-04-15] MEDS: NIFEdipine E.R. 30 MG TABLET PO SCH (10:18)
[2022-04-15] MEDS: PRENATAL VITAMINS W/ FOLIC ACID TABLET (FP) PO SCH (10:18)
[2022-04-15] MEDS: TOLNAFTATE 1% CREAM 15 GM TUBE TP SCH ×2 (10:19→22:02)
[2022-04-15] MEDS: CARBAMIDE PEROXIDE 6.5% OTIC 15 ML BOTTLE AU SCH ×2 (10:19→22:04)
[2022-04-15] MEDS: FLUOCINONIDE 0.05% CREAM (60 GM TUBE) TP SCH ×2 (10:19→22:03)
[2022-04-15] MEDS: INSULIN (NOVOLOG) ASPART 100 UNITS/ML 10ML VIAL SQ SCH ×2 (12:16→16:57)
[2022-04-15] MEDS: MELATONIN 5 MG TABLETS PO SCH (22:01)
[2022-04-15] MEDS: ATORVASTATIN CA 20 MG TABLET (FP) PO SCH (22:01)
[2022-04-15] MEDS: THIAMINE HCL 100 MG TABLET (FP) PO SCH (22:02)
[2022-04-15] MEDS: INSULIN (LEVEMIR) 100 UNITS/ML UNITS SQ SCH (22:03)
[2022-04-16] MEDS: NYSTATIN 500,000 UNITS/5 ML SUSPENSION PO SCH ×5 (02:10→23:47)
[2022-04-16] MEDS: INSULIN SLIDING SCALE (NOVOLOG) 1 VIAL SQ SCH ×4 (07:17→21:32)
[2022-04-16] MEDS: FUROSEMIDE 40 MG TABLET (FP) PO SCH ×2 (07:18→13:22)
[2022-04-16] MEDS: GABAPENTIN 400 MG CAPSULE PO SCH ×3 (07:18→21:27)
[2022-04-16] MEDS ORDERED: INSULIN (NOVOLOG) ASPART 100 UNITS/ML 10ML VIAL ONE ×3 (07:18→22:16)
[2022-04-16] MEDS: CARBAMIDE PEROXIDE 6.5% OTIC 15 ML BOTTLE AU SCH ×2 (09:03→21:33)
[2022-04-16] MEDS: ASPIRIN COATED 81 MG TABLET.EC PO SCH (09:04)
[2022-04-16] MEDS: TOLNAFTATE 1% CREAM 15 GM TUBE TP SCH ×2 (09:04→21:32)
[2022-04-16] MEDS: FLUOCINONIDE 0.05% CREAM (60 GM TUBE) TP SCH ×2 (09:04→22:00)
[2022-04-16] MEDS: PRENATAL VITAMINS W/ FOLIC ACID TABLET (FP) PO SCH (09:05)
[2022-04-16] MEDS: NIFEdipine E.R. 30 MG TABLET PO SCH (09:14)
[2022-04-16] MEDS: INSULIN (NOVOLOG) ASPART 100 UNITS/ML 10ML VIAL SQ SCH ×2 (12:09→16:37)
[2022-04-16] MEDS ORDERED: INSULIN (NOVOLOG) ASPART 100 UNITS/ML 10ML VIAL SQ ONE (13:35)
[2022-04-16] MEDS: ACETAMINOPHEN 325 MG TABLET (FP) PO PRN (19:35)
[2022-04-16] MEDS: MELATONIN 5 MG TABLETS PO SCH (21:27)
[2022-04-16] MEDS: ATORVASTATIN CA 20 MG TABLET (FP) PO SCH (21:27)
[2022-04-16] MEDS: THIAMINE HCL 100 MG TABLET (FP) PO SCH (21:27)
[2022-04-16] MEDS: INSULIN (LEVEMIR) 100 UNITS/ML UNITS SQ SCH (21:29)
[2022-04-16] MEDS ORDERED: INSULIN (LEVEMIR) 100 UNITS/ML UNITS SQ ONE (22:17)
[2022-04-17] MEDS: NYSTATIN 500,000 UNITS/5 ML SUSPENSION PO SCH ×3 (06:27→18:30)
[2022-04-17] MEDS: GABAPENTIN 400 MG CAPSULE PO SCH ×3 (06:27→21:44)
[2022-04-17] MEDS ORDERED: INSULIN (NOVOLOG) ASPART 100 UNITS/ML 10ML VIAL ONE ×3 (06:28→21:57)
[2022-04-17] MEDS: INSULIN SLIDING SCALE (NOVOLOG) 1 VIAL SQ SCH ×4 (06:29→21:53)
[2022-04-17] MEDS: FUROSEMIDE 40 MG TABLET (FP) PO SCH ×2 (06:31→13:28)
[2022-04-17] MEDS: CARBAMIDE PEROXIDE 6.5% OTIC 15 ML BOTTLE AU SCH ×2 (10:08→21:47)
[2022-04-17] MEDS: NIFEdipine E.R. 30 MG TABLET PO SCH (10:08)
[2022-04-17] MEDS: FLUOCINONIDE 0.05% CREAM (60 GM TUBE) TP SCH ×2 (10:08→21:47)
[2022-04-17] MEDS: ASPIRIN COATED 81 MG TABLET.EC PO SCH (10:08)
[2022-04-17] MEDS: PRENATAL VITAMINS W/ FOLIC ACID TABLET (FP) PO SCH (10:08)
[2022-04-17] MEDS: TOLNAFTATE 1% CREAM 15 GM TUBE TP SCH ×2 (10:08→21:54)
[2022-04-17] MEDS: INSULIN (NOVOLOG) ASPART 100 UNITS/ML 10ML VIAL SQ SCH ×2 (11:56→16:32)
[2022-04-17] MEDS: THIAMINE HCL 100 MG TABLET (FP) PO SCH (21:42)
[2022-04-17] MEDS: ATORVASTATIN CA 20 MG TABLET (FP) PO SCH (21:44)
[2022-04-17] MEDS: INSULIN (LEVEMIR) 100 UNITS/ML UNITS SQ SCH (21:45)
[2022-04-17] MEDS: MELATONIN 5 MG TABLETS PO SCH (21:47)
[2022-04-17] MEDS ORDERED: INSULIN (LEVEMIR) 100 UNITS/ML UNITS SQ ONE (21:56)
[2022-04-18] MEDS: NYSTATIN 500,000 UNITS/5 ML SUSPENSION PO SCH ×4 (00:30→18:55)
[2022-04-18] MEDS: GABAPENTIN 400 MG CAPSULE PO SCH ×3 (06:41→21:20)
[2022-04-18] MEDS: FUROSEMIDE 40 MG TABLET (FP) PO SCH ×2 (06:41→13:34)
[2022-04-18] MEDS: INSULIN SLIDING SCALE (NOVOLOG) 1 VIAL SQ SCH ×4 (06:44→21:26)
[2022-04-18] MEDS ORDERED: INSULIN (NOVOLOG) ASPART 100 UNITS/ML 10ML VIAL ONE ×3 (06:44→22:11)
[2022-04-18] MEDS: PRENATAL VITAMINS W/ FOLIC ACID TABLET (FP) PO SCH (10:11)
[2022-04-18] MEDS: ASPIRIN COATED 81 MG TABLET.EC PO SCH (10:11)
[2022-04-18] MEDS: FLUOCINONIDE 0.05% CREAM (60 GM TUBE) TP SCH ×2 (10:12→21:26)
[2022-04-18] MEDS: CARBAMIDE PEROXIDE 6.5% OTIC 15 ML BOTTLE AU SCH ×2 (10:12→21:21)
[2022-04-18] MEDS: TOLNAFTATE 1% CREAM 15 GM TUBE TP SCH ×2 (10:13→21:26)
[2022-04-18] MEDS: NIFEdipine E.R. 30 MG TABLET PO SCH (10:13)
[2022-04-18] MEDS: INSULIN (NOVOLOG) ASPART 100 UNITS/ML 10ML VIAL SQ SCH ×2 (12:15→16:41)
[2022-04-18] MEDS: THIAMINE HCL 100 MG TABLET (FP) PO SCH (21:20)
[2022-04-18] MEDS: ATORVASTATIN CA 20 MG TABLET (FP) PO SCH (21:20)
[2022-04-18] MEDS: INSULIN (LEVEMIR) 100 UNITS/ML UNITS SQ SCH (21:22)
[2022-04-18] MEDS: MELATONIN 5 MG TABLETS PO SCH (21:26)
[2022-04-18] MEDS ORDERED: INSULIN (LEVEMIR) 100 UNITS/ML UNITS SQ ONE (22:12)
[2022-04-18] MEDS: ACETAMINOPHEN 325 MG TABLET (FP) PO PRN (22:19)
[2022-04-19] MEDS: NYSTATIN 500,000 UNITS/5 ML SUSPENSION PO SCH ×4 (02:10→18:05)
[2022-04-19] MEDS: GABAPENTIN 400 MG CAPSULE PO SCH ×3 (07:00→21:54)
[2022-04-19] MEDS: FUROSEMIDE 40 MG TABLET (FP) PO SCH ×2 (07:00→14:05)
[2022-04-19] MEDS: INSULIN (NOVOLOG) ASPART 100 UNITS/ML 10ML VIAL SQ SCH ×3 (07:03→17:26)
[2022-04-19] MEDS: INSULIN SLIDING SCALE (NOVOLOG) 1 VIAL SQ SCH ×4 (07:03→21:55)
[2022-04-19] MEDS: CARBAMIDE PEROXIDE 6.5% OTIC 15 ML BOTTLE AU SCH ×2 (10:14→21:59)
[2022-04-19] MEDS: ASPIRIN COATED 81 MG TABLET.EC PO SCH (10:14)
[2022-04-19] MEDS: TOLNAFTATE 1% CREAM 15 GM TUBE TP SCH ×2 (10:15→21:59)
[2022-04-19] MEDS: PRENATAL VITAMINS W/ FOLIC ACID TABLET (FP) PO SCH (10:15)
[2022-04-19] MEDS: FLUOCINONIDE 0.05% CREAM (60 GM TUBE) TP SCH ×2 (10:15→21:54)
[2022-04-19] MEDS ORDERED: INSULIN (NOVOLOG) ASPART 100 UNITS/ML 10ML VIAL ONE (17:25)
[2022-04-19] MEDS ORDERED: INSULIN (LEVEMIR) 100 UNITS/ML UNITS SQ ONE (20:48)
[2022-04-19] MEDS: ACETAMINOPHEN 325 MG TABLET (FP) PO PRN (21:51)
[2022-04-19] MEDS: ATORVASTATIN CA 20 MG TABLET (FP) PO SCH (21:54)
[2022-04-19] MEDS: THIAMINE HCL 100 MG TABLET (FP) PO SCH (21:54)
[2022-04-19] MEDS: MELATONIN 5 MG TABLETS PO SCH (21:54)
[2022-04-19] MEDS: INSULIN (LEVEMIR) 100 UNITS/ML UNITS SQ SCH (21:55)
[2022-04-20] MEDS: NYSTATIN 500,000 UNITS/5 ML SUSPENSION PO SCH ×4 (01:14→18:30)
[2022-04-20] MEDS: FUROSEMIDE 40 MG TABLET (FP) PO SCH ×2 (06:48→13:32)
[2022-04-20] MEDS: GABAPENTIN 400 MG CAPSULE PO SCH ×3 (06:48→21:38)
[2022-04-20] MEDS: INSULIN SLIDING SCALE (NOVOLOG) 1 VIAL SQ SCH ×4 (06:50→21:46)
[2022-04-20] MEDS: INSULIN (NOVOLOG) ASPART 100 UNITS/ML 10ML VIAL SQ SCH ×3 (06:50→16:43)
[2022-04-20] MEDS ORDERED: INSULIN (NOVOLOG) ASPART 100 UNITS/ML 10ML VIAL ONE ×3 (06:55→22:48)
[2022-04-20] MEDS: ASPIRIN COATED 81 MG TABLET.EC PO SCH (09:52)
[2022-04-20] MEDS: CARBAMIDE PEROXIDE 6.5% OTIC 15 ML BOTTLE AU SCH ×2 (09:52→21:49)
[2022-04-20] MEDS: FLUOCINONIDE 0.05% CREAM (60 GM TUBE) TP SCH ×2 (09:53→21:49)
[2022-04-20] MEDS: TOLNAFTATE 1% CREAM 15 GM TUBE TP SCH ×2 (09:54→21:49)
[2022-04-20] MEDS: PRENATAL VITAMINS W/ FOLIC ACID TABLET (FP) PO SCH (09:54)
[2022-04-20] MEDS: THIAMINE HCL 100 MG TABLET (FP) PO SCH (21:38)
[2022-04-20] MEDS: ATORVASTATIN CA 20 MG TABLET (FP) PO SCH (21:38)
[2022-04-20] MEDS: INSULIN (LEVEMIR) 100 UNITS/ML UNITS SQ SCH (21:39)
[2022-04-20] MEDS: ACETAMINOPHEN 325 MG TABLET (FP) PO PRN (21:46)
[2022-04-20] MEDS: MELATONIN 5 MG TABLETS PO SCH (21:47)
[2022-04-21] MEDS: NYSTATIN 500,000 UNITS/5 ML SUSPENSION PO SCH ×5 (00:08→23:04)
[2022-04-21] MEDS: FUROSEMIDE 40 MG TABLET (FP) PO SCH ×2 (06:55→13:46)
[2022-04-21] MEDS: GABAPENTIN 400 MG CAPSULE PO SCH ×3 (06:55→21:32)
[2022-04-21] MEDS: INSULIN (NOVOLOG) ASPART 100 UNITS/ML 10ML VIAL SQ SCH ×3 (07:58→17:04)
[2022-04-21] MEDS: INSULIN SLIDING SCALE (NOVOLOG) 1 VIAL SQ SCH ×4 (07:58→21:35)
[2022-04-21] MEDS: FLUOCINONIDE 0.05% CREAM (60 GM TUBE) TP SCH ×2 (10:11→21:35)
[2022-04-21] MEDS: PRENATAL VITAMINS W/ FOLIC ACID TABLET (FP) PO SCH (10:11)
[2022-04-21] MEDS: ASPIRIN COATED 81 MG TABLET.EC PO SCH (10:11)
[2022-04-21] MEDS: TOLNAFTATE 1% CREAM 15 GM TUBE TP SCH ×2 (10:12→21:35)
[2022-04-21] MEDS: CARBAMIDE PEROXIDE 6.5% OTIC 15 ML BOTTLE AU SCH ×2 (10:12→21:29)
[2022-04-21] MEDS: INSULIN (LEVEMIR) 100 UNITS/ML UNITS SQ SCH (21:29)
[2022-04-21] MEDS: ACETAMINOPHEN 325 MG TABLET (FP) PO PRN (21:31)
[2022-04-21] MEDS: ATORVASTATIN CA 20 MG TABLET (FP) PO SCH (21:32)
[2022-04-21] MEDS: MELATONIN 5 MG TABLETS PO SCH (21:35)
[2022-04-21] MEDS: THIAMINE HCL 100 MG TABLET (FP) PO SCH (21:35)
[2022-04-21] MEDS ORDERED: INSULIN (NOVOLOG) ASPART 100 UNITS/ML 10ML VIAL ONE (22:46)
[2022-04-22] MEDS: NYSTATIN 500,000 UNITS/5 ML SUSPENSION PO SCH ×4 (06:59→23:10)
[2022-04-22] MEDS: GABAPENTIN 400 MG CAPSULE PO SCH ×3 (06:59→21:39)
[2022-04-22] MEDS: FUROSEMIDE 40 MG TABLET (FP) PO SCH ×2 (06:59→14:12)
[2022-04-22] MEDS: INSULIN SLIDING SCALE (NOVOLOG) 1 VIAL SQ SCH ×4 (07:01→21:41)
[2022-04-22] MEDS: INSULIN (NOVOLOG) ASPART 100 UNITS/ML 10ML VIAL SQ SCH ×3 (07:02→17:35)
[2022-04-22] MEDS ORDERED: INSULIN (NOVOLOG) ASPART 100 UNITS/ML 10ML VIAL ONE ×2 (07:04→21:47)
[2022-04-22] MEDS: ASPIRIN COATED 81 MG TABLET.EC PO SCH (10:09)
[2022-04-22] MEDS: PRENATAL VITAMINS W/ FOLIC ACID TABLET (FP) PO SCH (10:09)
[2022-04-22] MEDS: ACETAMINOPHEN 325 MG TABLET (FP) PO PRN ×2 (10:10→21:38)
[2022-04-22] MEDS: FLUOCINONIDE 0.05% CREAM (60 GM TUBE) TP SCH ×2 (10:10→21:45)
[2022-04-22] MEDS: CARBAMIDE PEROXIDE 6.5% OTIC 15 ML BOTTLE AU SCH ×2 (10:11→21:44)
[2022-04-22] MEDS: TOLNAFTATE 1% CREAM 15 GM TUBE TP SCH ×2 (10:12→21:45)
[2022-04-22] MEDS: DOCUSATE SODIUM 100 MG CAPSULE (FP) PO SCH ×2 (14:12→21:44)
[2022-04-22] MEDS: THIAMINE HCL 100 MG TABLET (FP) PO SCH (21:38)
[2022-04-22] MEDS: ATORVASTATIN CA 20 MG TABLET (FP) PO SCH (21:39)
[2022-04-22] MEDS: INSULIN (LEVEMIR) 100 UNITS/ML UNITS SQ SCH (21:40)
[2022-04-22] MEDS: MELATONIN 5 MG TABLETS PO SCH (21:45)
[2022-04-22] MEDS ORDERED: INSULIN (LEVEMIR) 100 UNITS/ML UNITS SQ ONE (21:47)
[2022-04-23] MEDS ORDERED: INSULIN (NOVOLOG) ASPART 100 UNITS/ML 10ML VIAL ONE ×3 (03:09→21:40)
[2022-04-23] MEDS: INSULIN SLIDING SCALE (NOVOLOG) 1 VIAL SQ SCH ×4 (06:18→21:40)
[2022-04-23] MEDS: FUROSEMIDE 40 MG TABLET (FP) PO SCH ×2 (06:18→14:04)
[2022-04-23] MEDS: ACETAMINOPHEN 325 MG TABLET (FP) PO PRN ×3 (06:18→21:47)
[2022-04-23] MEDS: INSULIN (NOVOLOG) ASPART 100 UNITS/ML 10ML VIAL SQ SCH ×3 (06:18→17:19)
[2022-04-23] MEDS: GABAPENTIN 400 MG CAPSULE PO SCH ×3 (06:18→21:37)
[2022-04-23] MEDS: DOCUSATE SODIUM 100 MG CAPSULE (FP) PO SCH ×3 (06:18→21:38)
[2022-04-23] MEDS: NYSTATIN 500,000 UNITS/5 ML SUSPENSION PO SCH ×4 (06:50→23:03)
[2022-04-23] MEDS: FLUOCINONIDE 0.05% CREAM (60 GM TUBE) TP SCH ×2 (10:05→21:45)
[2022-04-23] MEDS: TOLNAFTATE 1% CREAM 15 GM TUBE TP SCH ×2 (10:05→21:46)
[2022-04-23] MEDS: PRENATAL VITAMINS W/ FOLIC ACID TABLET (FP) PO SCH (10:06)
[2022-04-23] MEDS: ASPIRIN COATED 81 MG TABLET.EC PO SCH (10:06)
[2022-04-23] MEDS: CARBAMIDE PEROXIDE 6.5% OTIC 15 ML BOTTLE AU SCH ×2 (11:39→21:47)
[2022-04-23] MEDS: ATORVASTATIN CA 20 MG TABLET (FP) PO SCH (21:37)
[2022-04-23] MEDS: THIAMINE HCL 100 MG TABLET (FP) PO SCH (21:38)
[2022-04-23] MEDS: INSULIN (LEVEMIR) 100 UNITS/ML UNITS SQ SCH (21:41)
[2022-04-23] MEDS: MELATONIN 5 MG TABLETS PO SCH (21:45)
[2022-04-24] MEDS: ACETAMINOPHEN 325 MG TABLET (FP) PO PRN ×4 (01:45→21:17)
[2022-04-24] MEDS: NYSTATIN 500,000 UNITS/5 ML SUSPENSION PO SCH ×4 (07:31→23:10)
[2022-04-24] MEDS: DOCUSATE SODIUM 100 MG CAPSULE (FP) PO SCH ×3 (07:31→21:14)
[2022-04-24] MEDS: FUROSEMIDE 40 MG TABLET (FP) PO SCH ×2 (07:31→14:12)
[2022-04-24] MEDS: GABAPENTIN 400 MG CAPSULE PO SCH ×3 (07:31→21:13)
[2022-04-24] MEDS: INSULIN (NOVOLOG) ASPART 100 UNITS/ML 10ML VIAL SQ SCH ×3 (07:35→16:42)
[2022-04-24] MEDS ORDERED: INSULIN (NOVOLOG) ASPART 100 UNITS/ML 10ML VIAL ONE (07:35)
[2022-04-24] MEDS: INSULIN SLIDING SCALE (NOVOLOG) 1 VIAL SQ SCH ×4 (07:35→21:13)
[2022-04-24] MEDS: PRENATAL VITAMINS W/ FOLIC ACID TABLET (FP) PO SCH (10:14)
[2022-04-24] MEDS: CARBAMIDE PEROXIDE 6.5% OTIC 15 ML BOTTLE AU SCH ×2 (10:14→21:16)
[2022-04-24] MEDS: FLUOCINONIDE 0.05% CREAM (60 GM TUBE) TP SCH ×2 (10:14→21:15)
[2022-04-24] MEDS: TOLNAFTATE 1% CREAM 15 GM TUBE TP SCH ×2 (10:14→21:15)
[2022-04-24] MEDS: ASPIRIN COATED 81 MG TABLET.EC PO SCH (10:14)
[2022-04-24] MEDS: INSULIN (LEVEMIR) 100 UNITS/ML UNITS SQ SCH (21:11)
[2022-04-24] MEDS: THIAMINE HCL 100 MG TABLET (FP) PO SCH (21:14)
[2022-04-24] MEDS: ATORVASTATIN CA 20 MG TABLET (FP) PO SCH (21:14)
[2022-04-24] MEDS: MELATONIN 5 MG TABLETS PO SCH (21:15)
[2022-04-25] MEDS: GABAPENTIN 400 MG CAPSULE PO SCH ×3 (06:39→21:33)
[2022-04-25] MEDS: DOCUSATE SODIUM 100 MG CAPSULE (FP) PO SCH ×3 (06:39→21:33)
[2022-04-25] MEDS: FUROSEMIDE 40 MG TABLET (FP) PO SCH ×2 (06:40→14:37)
[2022-04-25] MEDS: NYSTATIN 500,000 UNITS/5 ML SUSPENSION PO SCH ×4 (06:40→23:01)
[2022-04-25] MEDS: INSULIN (NOVOLOG) ASPART 100 UNITS/ML 10ML VIAL SQ SCH ×3 (07:56→16:30)
[2022-04-25] MEDS: INSULIN SLIDING SCALE (NOVOLOG) 1 VIAL SQ SCH ×4 (07:57→21:36)
[2022-04-25] MEDS ORDERED: INSULIN (NOVOLOG) ASPART 100 UNITS/ML 10ML VIAL ONE ×3 (08:01→22:10)
[2022-04-25] MEDS: ASPIRIN COATED 81 MG TABLET.EC PO SCH (10:01)
[2022-04-25] MEDS: CARBAMIDE PEROXIDE 6.5% OTIC 15 ML BOTTLE AU SCH ×2 (10:02→21:35)
[2022-04-25] MEDS: NIFEdipine E.R. 30 MG TABLET PO SCH (10:02)
[2022-04-25] MEDS: PRENATAL VITAMINS W/ FOLIC ACID TABLET (FP) PO SCH (10:02)
[2022-04-25] MEDS: FLUOCINONIDE 0.05% CREAM (60 GM TUBE) TP SCH ×2 (10:04→21:35)
[2022-04-25] MEDS: TOLNAFTATE 1% CREAM 15 GM TUBE TP SCH ×2 (10:04→21:39)
[2022-04-25] MEDS: THIAMINE HCL 100 MG TABLET (FP) PO SCH (21:33)
[2022-04-25] MEDS: ATORVASTATIN CA 20 MG TABLET (FP) PO SCH (21:33)
[2022-04-25] MEDS: MELATONIN 5 MG TABLETS PO SCH (21:33)
[2022-04-25] MEDS: INSULIN (LEVEMIR) 100 UNITS/ML UNITS SQ SCH (21:35)
[2022-04-25] MEDS: ACETAMINOPHEN 325 MG TABLET (FP) PO PRN (21:37)
[2022-04-25] MEDS ORDERED: INSULIN (LEVEMIR) 100 UNITS/ML UNITS SQ ONE (22:11)
[2022-04-26] MEDS: NYSTATIN 500,000 UNITS/5 ML SUSPENSION PO SCH ×4 (07:00→23:31)
[2022-04-26] MEDS: DOCUSATE SODIUM 100 MG CAPSULE (FP) PO SCH ×3 (07:00→21:30)
[2022-04-26] MEDS: FUROSEMIDE 40 MG TABLET (FP) PO SCH ×2 (07:00→14:33)
[2022-04-26] MEDS: GABAPENTIN 400 MG CAPSULE PO SCH ×3 (07:00→21:29)
[2022-04-26] MEDS: ACETAMINOPHEN 325 MG TABLET (FP) PO PRN ×2 (07:04→21:31)
[2022-04-26] MEDS: INSULIN SLIDING SCALE (NOVOLOG) 1 VIAL SQ SCH ×4 (07:48→21:36)
[2022-04-26] MEDS: INSULIN (NOVOLOG) ASPART 100 UNITS/ML 10ML VIAL SQ SCH ×3 (07:50→17:07)
[2022-04-26] MEDS ORDERED: INSULIN (NOVOLOG) ASPART 100 UNITS/ML 10ML VIAL ONE ×3 (07:54→21:36)
[2022-04-26] MEDS: PRENATAL VITAMINS W/ FOLIC ACID TABLET (FP) PO SCH (10:15)
[2022-04-26] MEDS: FLUOCINONIDE 0.05% CREAM (60 GM TUBE) TP SCH ×2 (10:15→21:30)
[2022-04-26] MEDS: ASPIRIN COATED 81 MG TABLET.EC PO SCH (10:15)
[2022-04-26] MEDS: NIFEdipine E.R. 30 MG TABLET PO SCH (10:16)
[2022-04-26] MEDS: TOLNAFTATE 1% CREAM 15 GM TUBE TP SCH ×2 (10:16→21:30)
[2022-04-26] MEDS ORDERED: MELATONIN 5 MG TABLETS PO PRN (15:39)
[2022-04-26] MEDS: THIAMINE HCL 100 MG TABLET (FP) PO SCH (21:30)
[2022-04-26] MEDS: ATORVASTATIN CA 20 MG TABLET (FP) PO SCH (21:30)
[2022-04-26] MEDS: INSULIN (LEVEMIR) 100 UNITS/ML UNITS SQ SCH (21:36)
[2022-04-27] MEDS: GABAPENTIN 400 MG CAPSULE PO SCH ×3 (06:59→21:42)
[2022-04-27] MEDS: FUROSEMIDE 40 MG TABLET (FP) PO SCH ×2 (07:00→14:00)
[2022-04-27] MEDS: DOCUSATE SODIUM 100 MG CAPSULE (FP) PO SCH ×3 (07:00→21:43)
[2022-04-27] MEDS: NYSTATIN 500,000 UNITS/5 ML SUSPENSION PO SCH ×4 (07:00→23:43)
[2022-04-27] MEDS: INSULIN SLIDING SCALE (NOVOLOG) 1 VIAL SQ SCH ×4 (07:22→21:44)
[2022-04-27] MEDS: INSULIN (NOVOLOG) ASPART 100 UNITS/ML 10ML VIAL SQ SCH ×3 (07:22→16:51)
[2022-04-27] MEDS ORDERED: INSULIN (NOVOLOG) ASPART 100 UNITS/ML 10ML VIAL ONE ×3 (07:25→16:51)
[2022-04-27] MEDS: PRENATAL VITAMINS W/ FOLIC ACID TABLET (FP) PO SCH (09:46)
[2022-04-27] MEDS: FLUOCINONIDE 0.05% CREAM (60 GM TUBE) TP SCH ×2 (09:46→21:43)
[2022-04-27] MEDS: ASPIRIN COATED 81 MG TABLET.EC PO SCH (09:46)
[2022-04-27] MEDS: TOLNAFTATE 1% CREAM 15 GM TUBE TP SCH ×2 (09:46→21:44)
[2022-04-27] MEDS: ACETAMINOPHEN 325 MG TABLET (FP) PO PRN ×3 (09:47→21:42)
[2022-04-27] MEDS: INSULIN (LEVEMIR) 100 UNITS/ML UNITS SQ SCH (21:40)
[2022-04-27] MEDS: ATORVASTATIN CA 20 MG TABLET (FP) PO SCH (21:42)
[2022-04-27] MEDS: THIAMINE HCL 100 MG TABLET (FP) PO SCH (21:42)
[2022-04-28] MEDS: DOCUSATE SODIUM 100 MG CAPSULE (FP) PO SCH ×3 (06:39→21:28)
[2022-04-28] MEDS: GABAPENTIN 400 MG CAPSULE PO SCH ×3 (06:39→21:28)
[2022-04-28] MEDS: FUROSEMIDE 40 MG TABLET (FP) PO SCH ×2 (06:39→13:54)
[2022-04-28] MEDS: NYSTATIN 500,000 UNITS/5 ML SUSPENSION PO SCH ×4 (06:39→23:25)
[2022-04-28] MEDS: ACETAMINOPHEN 325 MG TABLET (FP) PO PRN ×3 (06:42→21:30)
[2022-04-28] MEDS ORDERED: INSULIN (NOVOLOG) ASPART 100 UNITS/ML 10ML VIAL ONE ×3 (07:25→22:24)
[2022-04-28] MEDS: INSULIN (NOVOLOG) ASPART 100 UNITS/ML 10ML VIAL SQ SCH ×3 (07:26→16:28)
[2022-04-28] MEDS: INSULIN SLIDING SCALE (NOVOLOG) 1 VIAL SQ SCH ×4 (07:26→21:33)
[2022-04-28] MEDS ORDERED: LACTULOSE 20 GM/30 ML UDC (FOR ORAL USE ONLY) PO ONE (10:15)
[2022-04-28] MEDS: ASPIRIN COATED 81 MG TABLET.EC PO SCH (10:20)
[2022-04-28] MEDS: PRENATAL VITAMINS W/ FOLIC ACID TABLET (FP) PO SCH (10:20)
[2022-04-28] MEDS: TOLNAFTATE 1% CREAM 15 GM TUBE TP SCH ×2 (10:21→21:29)
[2022-04-28] MEDS: FLUOCINONIDE 0.05% CREAM (60 GM TUBE) TP SCH ×2 (10:21→21:33)
[2022-04-28] MEDS: hydrOXYzine PAMOATE 25 MG CAPSULE (FP) PO PRN (21:28)
[2022-04-28] MEDS: THIAMINE HCL 100 MG TABLET (FP) PO SCH (21:28)
[2022-04-28] MEDS: INSULIN (LEVEMIR) 100 UNITS/ML UNITS SQ SCH (21:33)
[2022-04-28] MEDS: ATORVASTATIN CA 20 MG TABLET (FP) PO SCH (21:33)
[2022-04-28] MEDS ORDERED: INSULIN (LEVEMIR) 100 UNITS/ML UNITS SQ ONE (22:24)
[2022-04-29] MEDS: FUROSEMIDE 40 MG TABLET (FP) PO SCH ×2 (06:49→14:11)
[2022-04-29] MEDS: GABAPENTIN 400 MG CAPSULE PO SCH ×3 (06:49→23:55)
[2022-04-29] MEDS: NYSTATIN 500,000 UNITS/5 ML SUSPENSION PO SCH ×3 (06:49→18:05)
[2022-04-29] MEDS: DOCUSATE SODIUM 100 MG CAPSULE (FP) PO SCH ×3 (06:49→23:54)
[2022-04-29] MEDS: INSULIN (NOVOLOG) ASPART 100 UNITS/ML 10ML VIAL SQ SCH ×4 (07:45→14:53)
[2022-04-29] MEDS: INSULIN SLIDING SCALE (NOVOLOG) 1 VIAL SQ SCH ×5 (07:45→23:55)
[2022-04-29] MEDS ORDERED: INSULIN (NOVOLOG) ASPART 100 UNITS/ML 10ML VIAL ONE ×3 (08:03→22:56)
[2022-04-29] MEDS: PRENATAL VITAMINS W/ FOLIC ACID TABLET (FP) PO SCH (10:14)
[2022-04-29] MEDS: ASPIRIN COATED 81 MG TABLET.EC PO SCH (10:14)
[2022-04-29] MEDS: TOLNAFTATE 1% CREAM 15 GM TUBE TP SCH ×2 (10:15→23:56)
[2022-04-29] MEDS: ACETAMINOPHEN 325 MG TABLET (FP) PO PRN ×2 (10:15→14:15)
[2022-04-29] MEDS: FLUOCINONIDE 0.05% CREAM (60 GM TUBE) TP SCH ×2 (10:15→23:55)
[2022-04-29] MEDS: INSULIN (LEVEMIR) 100 UNITS/ML UNITS SQ SCH (23:54)
[2022-04-29] MEDS: ATORVASTATIN CA 20 MG TABLET (FP) PO SCH (23:55)
[2022-04-29] MEDS: THIAMINE HCL 100 MG TABLET (FP) PO SCH (23:56)
[2022-04-30] MEDS: NYSTATIN 500,000 UNITS/5 ML SUSPENSION PO SCH ×5 (00:40→23:06)
[2022-04-30] MEDS: DOCUSATE SODIUM 100 MG CAPSULE (FP) PO SCH ×3 (06:54→21:38)
[2022-04-30] MEDS: GABAPENTIN 400 MG CAPSULE PO SCH ×3 (06:54→21:37)
[2022-04-30] MEDS: FUROSEMIDE 40 MG TABLET (FP) PO SCH ×2 (06:54→14:18)
[2022-04-30] MEDS: INSULIN (NOVOLOG) ASPART 100 UNITS/ML 10ML VIAL SQ SCH ×3 (08:25→16:48)
[2022-04-30] MEDS: INSULIN SLIDING SCALE (NOVOLOG) 1 VIAL SQ SCH ×4 (08:25→21:34)
[2022-04-30] MEDS: ASPIRIN COATED 81 MG TABLET.EC PO SCH (10:13)
[2022-04-30] MEDS: PRENATAL VITAMINS W/ FOLIC ACID TABLET (FP) PO SCH (10:13)
[2022-04-30] MEDS: FLUOCINONIDE 0.05% CREAM (60 GM TUBE) TP SCH ×2 (10:14→21:39)
[2022-04-30] MEDS: TOLNAFTATE 1% CREAM 15 GM TUBE TP SCH ×2 (10:14→21:39)
[2022-04-30] MEDS ORDERED: INSULIN (NOVOLOG) ASPART 100 UNITS/ML 10ML VIAL ONE ×3 (11:46→21:48)
[2022-04-30] MEDS: ACETAMINOPHEN 325 MG TABLET (FP) PO PRN ×2 (11:56→21:37)
[2022-04-30] MEDS: INSULIN (LEVEMIR) 100 UNITS/ML UNITS SQ SCH (21:34)
[2022-04-30] MEDS: THIAMINE HCL 100 MG TABLET (FP) PO SCH (21:37)
[2022-04-30] MEDS: ATORVASTATIN CA 20 MG TABLET (FP) PO SCH (21:37)
[2022-04-30] MEDS ORDERED: INSULIN (LEVEMIR) 100 UNITS/ML UNITS SQ ONE (21:48)
[2022-05-01] MEDS: FUROSEMIDE 40 MG TABLET (FP) PO SCH ×2 (06:31→13:12)
[2022-05-01] MEDS: GABAPENTIN 400 MG CAPSULE PO SCH ×3 (06:31→21:33)
[2022-05-01] MEDS: DOCUSATE SODIUM 100 MG CAPSULE (FP) PO SCH ×3 (06:32→21:33)
[2022-05-01] MEDS: NYSTATIN 500,000 UNITS/5 ML SUSPENSION PO SCH ×3 (06:32→18:30)
[2022-05-01] MEDS ORDERED: INSULIN (NOVOLOG) ASPART 100 UNITS/ML 10ML VIAL ONE (08:08)
[2022-05-01] MEDS: INSULIN (NOVOLOG) ASPART 100 UNITS/ML 10ML VIAL SQ SCH ×3 (08:37→16:44)
[2022-05-01] MEDS: INSULIN SLIDING SCALE (NOVOLOG) 1 VIAL SQ SCH ×4 (08:38→21:37)
[2022-05-01] MEDS: ASPIRIN COATED 81 MG TABLET.EC PO SCH (10:05)
[2022-05-01] MEDS: TOLNAFTATE 1% CREAM 15 GM TUBE TP SCH ×2 (10:05→21:37)
[2022-05-01] MEDS: PRENATAL VITAMINS W/ FOLIC ACID TABLET (FP) PO SCH (10:05)
[2022-05-01] MEDS: FLUOCINONIDE 0.05% CREAM (60 GM TUBE) TP SCH ×2 (10:05→21:44)
[2022-05-01] MEDS: ACETAMINOPHEN 325 MG TABLET (FP) PO PRN ×2 (11:57→21:33)
[2022-05-01] MEDS: THIAMINE HCL 100 MG TABLET (FP) PO SCH (21:33)
[2022-05-01] MEDS: INSULIN (LEVEMIR) 100 UNITS/ML UNITS SQ SCH (21:33)
[2022-05-01] MEDS: ATORVASTATIN CA 20 MG TABLET (FP) PO SCH (21:33)
[2022-05-01] MEDS ORDERED: INSULIN (LEVEMIR) 100 UNITS/ML UNITS SQ ONE (21:43)
[2022-05-02] MEDS: NYSTATIN 500,000 UNITS/5 ML SUSPENSION PO SCH ×5 (00:24→23:32)
[2022-05-02] MEDS: DOCUSATE SODIUM 100 MG CAPSULE (FP) PO SCH ×3 (06:37→21:45)
[2022-05-02] MEDS: FUROSEMIDE 40 MG TABLET (FP) PO SCH ×2 (06:37→14:12)
[2022-05-02] MEDS: GABAPENTIN 400 MG CAPSULE PO SCH ×3 (06:37→21:45)
[2022-05-02] MEDS: INSULIN (NOVOLOG) ASPART 100 UNITS/ML 10ML VIAL SQ SCH ×3 (07:30→16:32)
[2022-05-02] MEDS: INSULIN SLIDING SCALE (NOVOLOG) 1 VIAL SQ SCH ×4 (07:30→21:51)
[2022-05-02] MEDS ORDERED: INSULIN (NOVOLOG) ASPART 100 UNITS/ML 10ML VIAL ONE ×3 (07:31→22:53)
[2022-05-02] MEDS: ASPIRIN COATED 81 MG TABLET.EC PO SCH (09:31)
[2022-05-02] MEDS: PRENATAL VITAMINS W/ FOLIC ACID TABLET (FP) PO SCH (09:31)
[2022-05-02] MEDS: TOLNAFTATE 1% CREAM 15 GM TUBE TP SCH ×2 (09:31→21:52)
[2022-05-02] MEDS: FLUOCINONIDE 0.05% CREAM (60 GM TUBE) TP SCH ×2 (09:31→21:52)
[2022-05-02] MEDS: ACETAMINOPHEN 325 MG TABLET (FP) PO PRN ×2 (09:32→21:45)
[2022-05-02] MEDS ORDERED: LACTULOSE 20 GM/30 ML UDC (FOR ORAL USE ONLY) PO PRN (10:00)
[2022-05-02] MEDS: ATORVASTATIN CA 20 MG TABLET (FP) PO SCH (21:45)
[2022-05-02] MEDS: THIAMINE HCL 100 MG TABLET (FP) PO SCH (21:45)
[2022-05-02] MEDS: INSULIN (LEVEMIR) 100 UNITS/ML UNITS SQ SCH (21:51)
[2022-05-02] MEDS ORDERED: INSULIN (LEVEMIR) 100 UNITS/ML UNITS SQ ONE (22:54)
[2022-05-03] MEDS: DOCUSATE SODIUM 100 MG CAPSULE (FP) PO SCH (06:40)
[2022-05-03] MEDS: FUROSEMIDE 40 MG TABLET (FP) PO SCH (06:40)
[2022-05-03] MEDS: GABAPENTIN 400 MG CAPSULE PO SCH (06:40)
[2022-05-03] MEDS: NYSTATIN 500,000 UNITS/5 ML SUSPENSION PO SCH (06:40)
[2022-05-03 07:00] VITALS: BP 148/89; PULSE 84; RESP 20; TEMP 97.3
[2022-05-03] MEDS: INSULIN SLIDING SCALE (NOVOLOG) 1 VIAL SQ SCH (07:04)
[2022-05-03] MEDS: INSULIN (NOVOLOG) ASPART 100 UNITS/ML 10ML VIAL SQ SCH (07:04)
[2022-05-03] MEDS ORDERED: INSULIN (NOVOLOG) ASPART 100 UNITS/ML 10ML VIAL ONE (07:13)
== END 2022-05-03 07:44 | disposition home or self-care (01) | DRG 772 ==
LOC: YASAS 13:04 → Y3E 13:05
PROVIDERS: ADMIT Allergy & Immunology; ATTEND Surgery
PROC: HZ42ZZZ Group Counseling for Substance Abuse Treatment, Cognitive-Behavioral (ICD-10-PCS; principal; 2022-04-05)
DX: F10.20 Alcohol dependence, uncomplicated (principal); F14.20 Cocaine dependence, uncomplicated; F13.20 Sedative, hypnotic or anxiolytic dependence, uncomplicated; F16.10 Hallucinogen abuse, uncomplicated; F17.210 Nicotine dependence, cigarettes, uncomplicated; F31.9 Bipolar disorder, unspecified; F41.9 Anxiety disorder, unspecified; I10 Essential (primary) hypertension; E78.5 Hyperlipidemia, unspecified; E11.40 Type 2 diabetes mellitus with diabetic neuropathy, unspecified; Z79.4 Long term (current) use of insulin; B35.3 Tinea pedis; H61.23 Impacted cerumen, bilateral; R60.0 Localized edema; Z86.73 Personal history of transient ischemic attack (TIA), and cerebral infarction without residual deficits; Z99.89 Dependence on other enabling machines and devices; Z88.0 Allergy status to penicillin; Z91.011 Allergy to milk products; Z91.014 Allergy to mammalian meats; Z88.8 Allergy status to other drugs, medicaments and biological substances
CPT/HCPCS: 36415; 82962; 84132; 87389

== ENCOUNTER 2022-06-29 12:20 | Inpatient (IN) | payer OTHER ==
[2022-06-29 14:20] VITALS: BMI 29.8
[2022-06-29] MEDS ORDERED: NICOTINE POLACRILEX 2 MG GUM BUC PRN (14:32)
[2022-06-29] MEDS ORDERED: MAG HYDROX/AL HYDROX/SIMETH 30 ML UNIT-DOSE CUP PO PRN (14:32)
[2022-06-29] MEDS ORDERED: POLYETHYLENE GLYCOL (HEALTHYLAX) 3350 17 GM PACKET PO PRN (14:32)
[2022-06-29] MEDS ORDERED: BENZOCAINE/MENTHOL (CHLORASEPTIC ) LOZENGE MM PRN (14:32)
[2022-06-29] MEDS ORDERED: NALOXONE HCL (KLOXXADO) 8 MG SPRAY NS PRN (14:32)
[2022-06-29] MEDS ORDERED: ACETAMINOPHEN 325 MG TABLET (FP) PO PRN (14:32)
[2022-06-29] MEDS ORDERED: ONDANSETRON *ODT* 4 MG TABLET SL PRN (14:32)
[2022-06-29] MEDS ORDERED: MAGNESIUM HYDROX 2400MG/30ML ORAL SUSPENSION 30 ML CUP PO PRN (14:32)
[2022-06-29] MEDS ORDERED: NICOTINE 10 MG CARTRIDGE (INHALER) IH PRN (14:32)
[2022-06-29] MEDS ORDERED: DICYCLOMINE HCL 10 MG CAPSULE PO PRN (14:32)
[2022-06-29] MEDS: chlordiazePOXIDE HCL 25 MG CAPSULE PO SCH ×2 (17:34→22:34)
[2022-06-29] MEDS: PRENATAL VITAMINS W/ FOLIC ACID TABLET (FP) PO SCH (17:35)
[2022-06-29] MEDS: INSULIN (NOVOLOG) ASPART 100 UNITS/ML 10ML VIAL SQ SCH (17:37)
[2022-06-29] MEDS: NIFEdipine E.R. 30 MG TABLET PO SCH (18:00)
[2022-06-29] MEDS ORDERED: MELATONIN 5 MG TABLETS PO SCH (22:00)
[2022-06-29] MEDS: CILOSTAZOL 50 MG TABLET PO SCH (22:34)
[2022-06-29] MEDS: THIAMINE HCL 100 MG TABLET (FP) PO SCH (22:34)
[2022-06-29] MEDS: ATORVASTATIN CA 20 MG TABLET (FP) PO SCH (22:34)
[2022-06-29] MEDS: INSULIN (LEVEMIR) 100 UNITS/ML UNITS SQ SCH (22:35)
[2022-06-29] MEDS: ACETAMINOPHEN 325 MG TABLET (FP) PO PRN (22:37)
[2022-06-29] MEDS: FLUOCINONIDE 0.05% CREAM (15 GM TUBE) TP SCH (23:43)
[2022-06-30] MEDS: chlordiazePOXIDE HCL 25 MG CAPSULE PO SCH ×4 (05:19→22:11)
[2022-06-30] MEDS: ACETAMINOPHEN 325 MG TABLET (FP) PO PRN ×2 (05:22→10:37)
[2022-06-30] MEDS: FUROSEMIDE 40 MG TABLET (FP) PO SCH ×2 (06:32→15:37)
[2022-06-30] MEDS: INSULIN (NOVOLOG) ASPART 100 UNITS/ML 10ML VIAL SQ SCH ×3 (07:59→16:56)
[2022-06-30] MEDS: FLUOCINONIDE 0.05% CREAM (15 GM TUBE) TP SCH ×2 (10:28→22:12)
[2022-06-30] MEDS: METHOCARBAMOL 500 MG TABLET PO PRN (10:29)
[2022-06-30] MEDS: PRENATAL VITAMINS W/ FOLIC ACID TABLET (FP) PO SCH (10:29)
[2022-06-30] MEDS: CILOSTAZOL 50 MG TABLET PO SCH (10:29)
[2022-06-30] MEDS: LOPERAMIDE HCL 2 MG CAPSULE PO PRN (10:31)
[2022-06-30] MEDS: NIFEdipine E.R. 30 MG TABLET PO SCH (10:32)
[2022-06-30 10:44] LABS: HEMATOCRIT 47.8 % (35.4-49); HEMOGLOBIN 16.1 GM/dL (11.7-16.9); MCHC 33.6 g/dl (32.0-35.9); MEAN CELL VOLUME 92.3 fl (80-96); MEAN PLT VOLUME 9.3 fl (7.5-11.1); PLATELET COUNT 269 10^3/uL (134-434); RBC 5.18 M/mm3 (4.00-5.60); RDW 13.9 % (11.9-15.9); WHITE BLOOD COUNT 5.5 K/mm3 (4.0-10.0)
[2022-06-30] MEDS ORDERED: diphenhydrAMINE HCL 25 MG CAPSULE (FP) PO PRN (10:56)
[2022-06-30] MEDS: ASPIRIN COATED 81 MG TABLET.EC PO SCH (13:35)
[2022-06-30] MEDS: GABAPENTIN 400 MG CAPSULE PO SCH ×2 (13:36→22:11)
[2022-06-30] MEDS: ATORVASTATIN CA 20 MG TABLET (FP) PO SCH (22:10)
[2022-06-30] MEDS: THIAMINE HCL 100 MG TABLET (FP) PO SCH (22:11)
[2022-06-30] MEDS: INSULIN (LEVEMIR) 100 UNITS/ML UNITS SQ SCH (22:12)
[2022-06-30 22:59] LABS: ALBUMIN 3.6 g/dl (3.4-5.0); CALCIUM 9.1 mg/dL (8.5-10.1)
[2022-06-30 23:02] LABS: CREATININE 1.3 mg/dL (0.55-1.3)
[2022-06-30 23:03] LABS: BILIRUBIN,TOTAL 0.6 mg/dL (0.2-1)
[2022-06-30 23:04] LABS: TOT PROT 7.2 g/dl (6.4-8.2)
[2022-07-01] MEDS: LOPERAMIDE HCL 2 MG CAPSULE PO PRN ×3 (04:36→22:53)
[2022-07-01] MEDS: GABAPENTIN 400 MG CAPSULE PO SCH ×3 (05:40→22:25)
[2022-07-01] MEDS: FUROSEMIDE 40 MG TABLET (FP) PO SCH ×2 (05:40→13:20)
[2022-07-01] MEDS: chlordiazePOXIDE HCL 25 MG CAPSULE PO SCH ×4 (05:40→22:25)
[2022-07-01] MEDS: ACETAMINOPHEN 325 MG TABLET (FP) PO PRN ×2 (05:43→13:22)
[2022-07-01] MEDS: INSULIN (NOVOLOG) ASPART 100 UNITS/ML 10ML VIAL SQ SCH ×3 (08:02→16:40)
[2022-07-01] MEDS: PRENATAL VITAMINS W/ FOLIC ACID TABLET (FP) PO SCH (10:40)
[2022-07-01] MEDS: METHOCARBAMOL 500 MG TABLET PO PRN (10:41)
[2022-07-01] MEDS: ASPIRIN COATED 81 MG TABLET.EC PO SCH (10:41)
[2022-07-01] MEDS: CILOSTAZOL 50 MG TABLET PO SCH (10:42)
[2022-07-01] MEDS: FLUOCINONIDE 0.05% CREAM (15 GM TUBE) TP SCH ×2 (10:43→22:25)
[2022-07-01] MEDS: NIFEdipine E.R. 30 MG TABLET PO SCH (10:43)
[2022-07-01] MEDS: INSULIN (LEVEMIR) 100 UNITS/ML UNITS SQ SCH (22:24)
[2022-07-01] MEDS: ATORVASTATIN CA 20 MG TABLET (FP) PO SCH (22:25)
[2022-07-01] MEDS: THIAMINE HCL 100 MG TABLET (FP) PO SCH (22:25)
[2022-07-02] MEDS: GABAPENTIN 400 MG CAPSULE PO SCH ×3 (05:35→22:47)
[2022-07-02] MEDS: chlordiazePOXIDE HCL 10 MG CAPSULE PO SCH ×4 (05:37→22:46)
[2022-07-02] MEDS: ACETAMINOPHEN 325 MG TABLET (FP) PO PRN (05:39)
[2022-07-02] MEDS: LOPERAMIDE HCL 2 MG CAPSULE PO PRN ×3 (05:42→23:23)
[2022-07-02] MEDS: FUROSEMIDE 40 MG TABLET (FP) PO SCH ×2 (06:16→13:27)
[2022-07-02] MEDS: INSULIN (NOVOLOG) ASPART 100 UNITS/ML 10ML VIAL SQ SCH ×3 (06:27→16:53)
[2022-07-02] MEDS: PRENATAL VITAMINS W/ FOLIC ACID TABLET (FP) PO SCH (10:22)
[2022-07-02] MEDS: CILOSTAZOL 50 MG TABLET PO SCH (10:23)
[2022-07-02] MEDS: ASPIRIN COATED 81 MG TABLET.EC PO SCH (10:23)
[2022-07-02] MEDS: FLUOCINONIDE 0.05% CREAM (15 GM TUBE) TP SCH ×2 (10:23→23:21)
[2022-07-02] MEDS: NIFEdipine E.R. 30 MG TABLET PO SCH (10:24)
[2022-07-02] MEDS: METHOCARBAMOL 500 MG TABLET PO PRN (10:25)
[2022-07-02] MEDS: THIAMINE HCL 100 MG TABLET (FP) PO SCH (22:46)
[2022-07-02] MEDS: ATORVASTATIN CA 20 MG TABLET (FP) PO SCH (22:46)
[2022-07-02] MEDS: INSULIN (LEVEMIR) 100 UNITS/ML UNITS SQ SCH (22:46)
[2022-07-03] MEDS: chlordiazePOXIDE HCL 10 MG CAPSULE PO SCH ×2 (06:23→16:34)
[2022-07-03] MEDS: FUROSEMIDE 40 MG TABLET (FP) PO SCH ×2 (06:25→13:30)
[2022-07-03] MEDS: GABAPENTIN 400 MG CAPSULE PO SCH ×3 (06:25→21:33)
[2022-07-03] MEDS: INSULIN (NOVOLOG) ASPART 100 UNITS/ML 10ML VIAL SQ SCH ×3 (07:01→16:36)
[2022-07-03] MEDS: CILOSTAZOL 50 MG TABLET PO SCH (10:12)
[2022-07-03] MEDS: FLUOCINONIDE 0.05% CREAM (15 GM TUBE) TP SCH ×2 (10:13→21:36)
[2022-07-03] MEDS: ASPIRIN COATED 81 MG TABLET.EC PO SCH (10:13)
[2022-07-03] MEDS: NIFEdipine E.R. 30 MG TABLET PO SCH (10:13)
[2022-07-03] MEDS: PRENATAL VITAMINS W/ FOLIC ACID TABLET (FP) PO SCH (10:13)
[2022-07-03] MEDS: ACETAMINOPHEN 325 MG TABLET (FP) PO PRN ×2 (10:15→21:35)
[2022-07-03] MEDS ORDERED: COLLOIDAL OATMEAL 1 BAR EACH TP PRN (11:57)
[2022-07-03] MEDS: THIAMINE HCL 100 MG TABLET (FP) PO SCH (21:33)
[2022-07-03] MEDS: ATORVASTATIN CA 20 MG TABLET (FP) PO SCH (21:33)
[2022-07-03] MEDS: INSULIN (LEVEMIR) 100 UNITS/ML UNITS SQ SCH (21:36)
[2022-07-03] MEDS: LOPERAMIDE HCL 2 MG CAPSULE PO PRN (21:39)
[2022-07-04] MEDS ORDERED: chlordiazePOXIDE HCL 10 MG CAPSULE PO ONE (05:00)
[2022-07-04] MEDS: GABAPENTIN 400 MG CAPSULE PO SCH ×3 (05:59→22:53)
[2022-07-04] MEDS: FUROSEMIDE 40 MG TABLET (FP) PO SCH ×2 (06:06→13:51)
[2022-07-04] MEDS: ACETAMINOPHEN 325 MG TABLET (FP) PO PRN ×2 (06:12→13:52)
[2022-07-04] MEDS: INSULIN (NOVOLOG) ASPART 100 UNITS/ML 10ML VIAL SQ SCH ×3 (06:48→17:11)
[2022-07-04] MEDS: ASPIRIN COATED 81 MG TABLET.EC PO SCH (10:30)
[2022-07-04] MEDS: NIFEdipine E.R. 30 MG TABLET PO SCH (10:30)
[2022-07-04] MEDS: CILOSTAZOL 50 MG TABLET PO SCH (10:31)
[2022-07-04] MEDS: PRENATAL VITAMINS W/ FOLIC ACID TABLET (FP) PO SCH (10:31)
[2022-07-04] MEDS: FLUOCINONIDE 0.05% CREAM (15 GM TUBE) TP SCH ×2 (10:32→22:53)
[2022-07-04 14:14] VITALS: RESP 18
[2022-07-04] MEDS: METHOCARBAMOL 500 MG TABLET PO PRN (18:09)
[2022-07-04] MEDS: ATORVASTATIN CA 20 MG TABLET (FP) PO SCH (22:53)
[2022-07-04] MEDS: THIAMINE HCL 100 MG TABLET (FP) PO SCH (22:53)
[2022-07-04] MEDS: INSULIN (LEVEMIR) 100 UNITS/ML UNITS SQ SCH (22:53)
[2022-07-05] MEDS: GABAPENTIN 400 MG CAPSULE PO SCH (06:14)
[2022-07-05] MEDS: FUROSEMIDE 40 MG TABLET (FP) PO SCH (06:14)
[2022-07-05] MEDS: ACETAMINOPHEN 325 MG TABLET (FP) PO PRN (06:16)
[2022-07-05 06:36] VITALS: BP 136/85; PULSE 92; TEMP 97.3
[2022-07-05] MEDS: INSULIN (NOVOLOG) ASPART 100 UNITS/ML 10ML VIAL SQ SCH (06:57)
== END 2022-07-05 09:17 | disposition other institution (70) | DRG 774 ==
LOC: YASAS 12:20 → Y6N 16:07
PROVIDERS: ADMIT Allergy & Immunology; ATTEND Surgery
PROC: HZ2ZZZZ Detoxification Services for Substance Abuse Treatment (ICD-10-PCS; principal; 2022-06-29)
DX: F10.230 Alcohol dependence with withdrawal, uncomplicated (principal); F14.20 Cocaine dependence, uncomplicated; F13.20 Sedative, hypnotic or anxiolytic dependence, uncomplicated; F17.210 Nicotine dependence, cigarettes, uncomplicated; F19.282 Other psychoactive substance dependence with psychoactive substance-induced sleep disorder; F19.24 Other psychoactive substance dependence with psychoactive substance-induced mood disorder; F41.9 Anxiety disorder, unspecified; I10 Essential (primary) hypertension; E78.5 Hyperlipidemia, unspecified; E11.42 Type 2 diabetes mellitus with diabetic polyneuropathy; Z79.4 Long term (current) use of insulin; M54.50 Low back pain, unspecified; M17.11 Unilateral primary osteoarthritis, right knee; G89.29 Other chronic pain; Z99.89 Dependence on other enabling machines and devices; Z85.46 Personal history of malignant neoplasm of prostate; Z88.0 Allergy status to penicillin; Z88.8 Allergy status to other drugs, medicaments and biological substances; Z91.011 Allergy to milk products
CPT/HCPCS: 36415; 80053; 82962; 83036; 85027; 86780; 87811; C9803-CS; U0003; U0005

== ENCOUNTER 2022-08-18 16:23 | Inpatient (IN) | payer OTHER ==
[2022-08-18 18:09] VITALS: BMI 28.0
[2022-08-18] MEDS ORDERED: BISMUTH SUBSALICYLATE 524 MG/30 ML PO PRN (20:25)
[2022-08-18] MEDS ORDERED: NICOTINE 10 MG CARTRIDGE (INHALER) IH PRN (20:25)
[2022-08-18] MEDS ORDERED: ACETAMINOPHEN 325 MG TABLET (FP) PO PRN (20:25)
[2022-08-18] MEDS ORDERED: IBUPROFEN 600 MG TABLET (FP) PO PRN (20:25)
[2022-08-18] MEDS ORDERED: LOPERAMIDE HCL 2 MG CAPSULE PO PRN (20:25)
[2022-08-18] MEDS ORDERED: ONDANSETRON *ODT* 4 MG TABLET SL PRN (20:25)
[2022-08-18] MEDS ORDERED: POLYETHYLENE GLYCOL (HEALTHYLAX) 3350 17 GM PACKET PO PRN (20:25)
[2022-08-18] MEDS ORDERED: IBUPROFEN 400 MG TABLET (FP) PO PRN (20:25)
[2022-08-18] MEDS ORDERED: MAG HYDROX/AL HYDROX/SIMETH 30 ML UNIT-DOSE CUP PO PRN (20:25)
[2022-08-18] MEDS ORDERED: BENZOCAINE/MENTHOL (CHLORASEPTIC ) LOZENGE MM PRN (20:25)
[2022-08-18] MEDS ORDERED: MAGNESIUM HYDROX 2400MG/30ML ORAL SUSPENSION 30 ML CUP PO PRN (20:25)
[2022-08-18] MEDS ORDERED: DICYCLOMINE HCL 10 MG CAPSULE PO PRN (20:25)
[2022-08-18] MEDS ORDERED: NALOXONE HCL (KLOXXADO) 8 MG SPRAY NS PRN (20:25)
[2022-08-19] MEDS: THIAMINE HCL 100 MG TABLET (FP) PO SCH ×2 (01:46→22:38)
[2022-08-19] MEDS: hydrOXYzine PAMOATE 25 MG CAPSULE (FP) PO PRN (01:46)
[2022-08-19] MEDS: MELATONIN 5 MG TABLETS PO SCH ×2 (01:47→22:38)
[2022-08-19] MEDS ORDERED: diazePAM 5 MG TABLET PO PRN (08:34)
[2022-08-19] MEDS ORDERED: COLLOIDAL OATMEAL 1 EACH PACKET TP ONE (08:40)
[2022-08-19] MEDS ORDERED: COLLOIDAL OATMEAL 1 BAR EACH TP PRN (09:01)
[2022-08-19] MEDS ORDERED: INSULIN SLIDING SCALE (NOVOLOG) 1 VIAL SQ ONE (09:08)
[2022-08-19] MEDS: PRENATAL VITAMINS W/ FOLIC ACID TABLET (FP) PO SCH (09:29)
[2022-08-19] MEDS: INSULIN (NOVOLOG) ASPART 100 UNITS/ML 10ML VIAL SQ SCH ×2 (09:30→11:28)
[2022-08-19] MEDS: NIFEdipine E.R. 30 MG TABLET PO SCH (09:33)
[2022-08-19] MEDS: METHOCARBAMOL 500 MG TABLET PO PRN ×2 (10:26→22:37)
[2022-08-19] MEDS: ACETAMINOPHEN 325 MG TABLET (FP) PO PRN ×2 (10:27→22:40)
[2022-08-19] MEDS: FLUOCINONIDE 0.05% CREAM (15 GM TUBE) TP SCH ×2 (10:27→22:39)
[2022-08-19] MEDS: CARBAMIDE PEROXIDE 6.5% OTIC 15 ML BOTTLE AU SCH ×2 (10:28→22:44)
[2022-08-19] MEDS: diazePAM 5 MG TABLET PO SCH ×3 (10:30→22:38)
[2022-08-19] MEDS: CILOSTAZOL 50 MG TABLET PO SCH (11:13)
[2022-08-19] MEDS: GABAPENTIN 400 MG CAPSULE PO SCH ×2 (13:44→22:38)
[2022-08-19] MEDS: FUROSEMIDE 40 MG TABLET (FP) PO SCH ×2 (13:44→13:48)
[2022-08-19 14:32] LABS: HEMATOCRIT 49.8 % (35.4-49); HEMOGLOBIN 16.9 GM/dL (11.7-16.9); MCHC 33.9 g/dl (32.0-35.9); MEAN CELL VOLUME 91.4 fl (80-96); MEAN PLT VOLUME 9.5 fl (7.5-11.1); PLATELET COUNT 180 10^3/uL (134-434); RBC 5.45 M/mm3 (4.00-5.60); RDW 13.3 % (11.9-15.9); WHITE BLOOD COUNT 5.6 K/mm3 (4.0-10.0)
[2022-08-19 15:18] LABS: ALBUMIN 3.5 g/dl (3.4-5.0); CREATININE 1.3 mg/dL (0.55-1.3)
[2022-08-19 15:21] LABS: TOT PROT 7.4 g/dl (6.4-8.2)
[2022-08-19 15:22] LABS: BILIRUBIN,TOTAL 0.7 mg/dL (0.2-1)
[2022-08-19 15:24] LABS: CALCIUM 9.5 mg/dL (8.5-10.1)
[2022-08-19] MEDS: INSULIN SLIDING SCALE (NOVOLOG) 1 VIAL SQ SCH (17:29)
[2022-08-19] MEDS: INSULIN (LEVEMIR) 100 UNITS/ML UNITS SQ SCH (22:33)
[2022-08-19] MEDS: ATORVASTATIN CA 20 MG TABLET (FP) PO SCH (22:38)
[2022-08-20] MEDS: GABAPENTIN 400 MG CAPSULE PO SCH ×3 (07:09→22:53)
[2022-08-20] MEDS: FUROSEMIDE 40 MG TABLET (FP) PO SCH ×2 (07:10→14:11)
[2022-08-20] MEDS: diazePAM 5 MG TABLET PO SCH ×3 (07:12→17:36)
[2022-08-20] MEDS: INSULIN SLIDING SCALE (NOVOLOG) 1 VIAL SQ SCH ×3 (07:21→22:50)
[2022-08-20] MEDS: PRENATAL VITAMINS W/ FOLIC ACID TABLET (FP) PO SCH (10:21)
[2022-08-20] MEDS: FLUOCINONIDE 0.05% CREAM (15 GM TUBE) TP SCH ×2 (10:22→23:58)
[2022-08-20] MEDS: CILOSTAZOL 50 MG TABLET PO SCH (10:22)
[2022-08-20] MEDS: NIFEdipine E.R. 30 MG TABLET PO SCH ×2 (10:22→10:31)
[2022-08-20] MEDS: CARBAMIDE PEROXIDE 6.5% OTIC 15 ML BOTTLE AU SCH ×2 (10:24→22:51)
[2022-08-20] MEDS: hydrOXYzine PAMOATE 25 MG CAPSULE (FP) PO PRN (14:39)
[2022-08-20] MEDS: INSULIN (LEVEMIR) 100 UNITS/ML UNITS SQ SCH (22:49)
[2022-08-20] MEDS: THIAMINE HCL 100 MG TABLET (FP) PO SCH (22:52)
[2022-08-20] MEDS: ATORVASTATIN CA 20 MG TABLET (FP) PO SCH (22:52)
[2022-08-20] MEDS: MELATONIN 5 MG TABLETS PO SCH (22:52)
[2022-08-20] MEDS: METHOCARBAMOL 500 MG TABLET PO PRN (22:53)
[2022-08-21] MEDS: diazePAM 5 MG TABLET PO SCH ×4 (00:06→22:22)
[2022-08-21] MEDS ORDERED: INSULIN SLIDING SCALE (NOVOLOG) 1 VIAL SQ ONE (07:13)
[2022-08-21] MEDS: FUROSEMIDE 40 MG TABLET (FP) PO SCH ×2 (07:24→13:47)
[2022-08-21] MEDS: GABAPENTIN 400 MG CAPSULE PO SCH ×3 (07:24→22:21)
[2022-08-21] MEDS: INSULIN SLIDING SCALE (NOVOLOG) 1 VIAL SQ SCH ×4 (07:25→22:49)
[2022-08-21] MEDS: PRENATAL VITAMINS W/ FOLIC ACID TABLET (FP) PO SCH (11:01)
[2022-08-21] MEDS: CARBAMIDE PEROXIDE 6.5% OTIC 15 ML BOTTLE AU SCH ×2 (11:01→22:27)
[2022-08-21] MEDS: FLUOCINONIDE 0.05% CREAM (15 GM TUBE) TP SCH ×2 (11:02→22:27)
[2022-08-21] MEDS: NIFEdipine E.R. 30 MG TABLET PO SCH (11:03)
[2022-08-21] MEDS: CILOSTAZOL 50 MG TABLET PO SCH (11:03)
[2022-08-21] MEDS: THIAMINE HCL 100 MG TABLET (FP) PO SCH (22:21)
[2022-08-21] MEDS: INSULIN (LEVEMIR) 100 UNITS/ML UNITS SQ SCH (22:23)
[2022-08-21] MEDS: MELATONIN 5 MG TABLETS PO SCH (22:28)
[2022-08-21] MEDS: ATORVASTATIN CA 20 MG TABLET (FP) PO SCH (22:29)
[2022-08-22] MEDS: FUROSEMIDE 40 MG TABLET (FP) PO SCH ×2 (06:04→14:09)
[2022-08-22] MEDS: GABAPENTIN 400 MG CAPSULE PO SCH ×3 (06:04→22:34)
[2022-08-22] MEDS: diazePAM 5 MG TABLET PO SCH ×2 (06:04→18:01)
[2022-08-22] MEDS: INSULIN SLIDING SCALE (NOVOLOG) 1 VIAL SQ SCH ×4 (07:28→22:34)
[2022-08-22] MEDS: FLUOCINONIDE 0.05% CREAM (15 GM TUBE) TP SCH ×2 (10:32→22:33)
[2022-08-22] MEDS: CARBAMIDE PEROXIDE 6.5% OTIC 15 ML BOTTLE AU SCH ×2 (10:32→22:32)
[2022-08-22] MEDS: NIFEdipine E.R. 30 MG TABLET PO SCH (10:33)
[2022-08-22] MEDS: CILOSTAZOL 50 MG TABLET PO SCH (10:33)
[2022-08-22] MEDS: PRENATAL VITAMINS W/ FOLIC ACID TABLET (FP) PO SCH (10:33)
[2022-08-22] MEDS: ATORVASTATIN CA 20 MG TABLET (FP) PO SCH (22:33)
[2022-08-22] MEDS: MELATONIN 5 MG TABLETS PO SCH (22:33)
[2022-08-22] MEDS: INSULIN (LEVEMIR) 100 UNITS/ML UNITS SQ SCH (22:33)
[2022-08-22] MEDS: THIAMINE HCL 100 MG TABLET (FP) PO SCH (22:35)
[2022-08-22] MEDS: METHOCARBAMOL 500 MG TABLET PO PRN (22:35)
[2022-08-23] MEDS ORDERED: HYDROCORTISONE 1% TOPICAL CREAM 30 GM TUBE TP PRN (01:22)
[2022-08-23] MEDS: hydrOXYzine PAMOATE 25 MG CAPSULE (FP) PO PRN (01:26)
[2022-08-23] MEDS ORDERED: diazePAM 5 MG TABLET PO ONE (06:00)
[2022-08-23] MEDS: GABAPENTIN 400 MG CAPSULE PO SCH (06:19)
[2022-08-23] MEDS: FUROSEMIDE 40 MG TABLET (FP) PO SCH (06:19)
[2022-08-23] MEDS: INSULIN SLIDING SCALE (NOVOLOG) 1 VIAL SQ SCH (06:33)
[2022-08-23 06:48] VITALS: TEMP 97.5
[2022-08-23 09:23] VITALS: BP 107/72; PULSE 93; RESP 16
== END 2022-08-23 09:45 | disposition home or self-care (01) | DRG 774 ==
LOC: YASAS 16:23 → Y3N 08-19 01:26
PROVIDERS: ADMIT Allergy & Immunology; ATTEND Allergy & Immunology
PROC: HZ2ZZZZ Detoxification Services for Substance Abuse Treatment (ICD-10-PCS; principal; 2022-08-19)
DX: F10.230 Alcohol dependence with withdrawal, uncomplicated (principal); F13.20 Sedative, hypnotic or anxiolytic dependence, uncomplicated; F14.20 Cocaine dependence, uncomplicated; F17.210 Nicotine dependence, cigarettes, uncomplicated; F19.282 Other psychoactive substance dependence with psychoactive substance-induced sleep disorder; F19.24 Other psychoactive substance dependence with psychoactive substance-induced mood disorder; F41.9 Anxiety disorder, unspecified; U07.1 COVID-19; G62.9 Polyneuropathy, unspecified; B35.6 Tinea cruris; I10 Essential (primary) hypertension; E78.5 Hyperlipidemia, unspecified; E11.9 Type 2 diabetes mellitus without complications; Z79.4 Long term (current) use of insulin; L85.3 Xerosis cutis; M54.50 Low back pain, unspecified; G89.29 Other chronic pain; Z85.46 Personal history of malignant neoplasm of prostate; Z86.73 Personal history of transient ischemic attack (TIA), and cerebral infarction without residual deficits; Z99.89 Dependence on other enabling machines and devices; Z88.6 Allergy status to analgesic agent; Z88.0 Allergy status to penicillin; Z91.011 Allergy to milk products; Z91.014 Allergy to mammalian meats
CPT/HCPCS: 36415; 80053; 82962; 85027; 86780; C9803-CS; U0003; U0005

== ENCOUNTER 2022-09-01 10:42 | Inpatient (IN) | payer OTHER ==
[2022-09-01 11:10] VITALS: BMI 29.5
[2022-09-01] MEDS ORDERED: guaiFENesin 200 MG/10 ML 10 ML UNIT-DOSE CUPS PO PRN (11:58)
[2022-09-01] MEDS ORDERED: MAGNESIUM HYDROX 2400MG/30ML ORAL SUSPENSION 30 ML CUP PO PRN (11:58)
[2022-09-01] MEDS ORDERED: MAG HYDROX/AL HYDROX/SIMETH 30 ML UNIT-DOSE CUP PO PRN (11:58)
[2022-09-01] MEDS ORDERED: NICOTINE 10 MG CARTRIDGE (INHALER) IH PRN (11:58)
[2022-09-01] MEDS ORDERED: POLYETHYLENE GLYCOL (HEALTHYLAX) 3350 17 GM PACKET PO PRN (11:58)
[2022-09-01] MEDS ORDERED: hydrOXYzine PAMOATE 25 MG CAPSULE (FP) PO PRN (11:58)
[2022-09-01] MEDS ORDERED: P-EPHED 60MG/TRIPROLIDI 2.5MG TABLET PO PRN (11:58)
[2022-09-01] MEDS ORDERED: IBUPROFEN 400 MG TABLET (FP) PO PRN (11:58)
[2022-09-01] MEDS ORDERED: LOPERAMIDE HCL 2 MG CAPSULE PO PRN (11:58)
[2022-09-01] MEDS ORDERED: BENZOCAINE/MENTHOL (CHLORASEPTIC ) LOZENGE MM PRN (11:58)
[2022-09-01] MEDS ORDERED: INSULIN (NOVOLOG) ASPART 100 UNITS/ML 10ML VIAL SQ ONE (14:04)
[2022-09-01] MEDS: FUROSEMIDE 40 MG TABLET (FP) PO SCH (14:24)
[2022-09-01] MEDS: ASPIRIN COATED 81 MG TABLET.EC PO SCH (14:24)
[2022-09-01] MEDS: GABAPENTIN 400 MG CAPSULE PO SCH ×2 (14:24→22:12)
[2022-09-01] MEDS: PRENATAL VITAMINS W/ FOLIC ACID TABLET (FP) PO SCH (14:24)
[2022-09-01] MEDS: NICOTINE 14 MG/24 HOURS TOPICAL PATCH TD SCH (14:26)
[2022-09-01] MEDS ORDERED: INSULIN (NOVOLOG) ASPART 100 UNITS/ML 10ML VIAL ONE (17:15)
[2022-09-01] MEDS: INSULIN SLIDING SCALE (NOVOLOG) 1 VIAL SQ SCH (17:15)
[2022-09-01 17:26] LABS: HEMATOCRIT 47.6 % (35.4-49); HEMOGLOBIN 15.7 GM/dL (11.7-16.9); MCH 30.4 pg (25.7-33.7); MCHC 33.1 g/dl (32.0-35.9); MEAN PLT VOLUME 9.2 fl (7.5-11.1); PLATELET COUNT 290 10^3/uL (134-434); RBC 5.17 M/mm3 (4.00-5.60); RDW 13.7 % (11.9-15.9); WHITE BLOOD COUNT 6.5 K/mm3 (4.0-10.0)
[2022-09-01 17:30] LABS: ALBUMIN 3.5 g/dl (3.4-5.0); CALCIUM 8.8 mg/dL (8.5-10.1)
[2022-09-01 17:31] LABS: BLOOD UREA NITROGEN 9.8 mg/dL (7-18)
[2022-09-01 17:34] LABS: CREATININE 1.4 mg/dL (0.55-1.3)
[2022-09-01 17:35] LABS: BILIRUBIN,TOTAL 0.9 mg/dL (0.2-1)
[2022-09-01 17:56] LABS: SYPHILIS W/ RPR CONF NON-REACTIVE (NONREACTIVE)
[2022-09-01] MEDS: PHENYLEPHRINE HCL/COCOA BUTTER SUPPOSITORY RC SCH (21:14)
[2022-09-01] MEDS ORDERED: ATORVASTATIN CA 20 MG TABLET (FP) PO SCH (22:00)
[2022-09-01] MEDS ORDERED: THIAMINE HCL 100 MG TABLET (FP) PO SCH (22:00)
[2022-09-01] MEDS ORDERED: INSULIN (LEVEMIR) 100 UNITS/ML UNITS SQ SCH (22:00)
[2022-09-01] MEDS ORDERED: MELATONIN 5 MG TABLETS PO SCH (22:00)
[2022-09-01] MEDS: ACETAMINOPHEN 325 MG TABLET (FP) PO PRN (22:14)
[2022-09-01] MEDS: FLUOCINONIDE 0.05% CREAM (15 GM TUBE) TP SCH (22:18)
[2022-09-02 00:55] LABS: URINE APPEARANCE CLEAR; URINE BILIRUBIN NEGATIVE (NEGATIVE); URINE COLOR YELLOW; URINE GLUCOSE (UA) 3+ (NEGATIVE); URINE KETONE TRACE (NEGATIVE); URINE LEUK ESTERASE NEGATIVE (NEGATIVE); URINE NITRITE NEGATIVE (NEGATIVE); URINE PROTEIN 3+ (NEGATIVE); URINE UROBILINOGEN 0.2 mg/dL (0.2-1.0)
[2022-09-02] MEDS: GABAPENTIN 400 MG CAPSULE PO SCH ×2 (05:44→14:20)
[2022-09-02] MEDS: FUROSEMIDE 40 MG TABLET (FP) PO SCH ×2 (05:45→14:20)
[2022-09-02] MEDS: ACETAMINOPHEN 325 MG TABLET (FP) PO PRN ×2 (05:46→14:22)
[2022-09-02 07:39] LABS: EPI CELLS 4.5 /uL (0-25.1); HYALINE CASTS 3.14 /uL (0-3.1); URINE BACTERIA 2.8 /uL (0-1359); URINE RBC 6.4 /uL (0-23.9); URINE WBC 11.3 /uL (0-25.8)
[2022-09-02] MEDS: INSULIN SLIDING SCALE (NOVOLOG) 1 VIAL SQ SCH ×3 (07:51→17:20)
[2022-09-02] MEDS ORDERED: diphenhydrAMINE HCL 25 MG CAPSULE (FP) PO PRN (09:38)
[2022-09-02] MEDS ORDERED: COLLOIDAL OATMEAL 1 BAR EACH TP PRN (09:49)
[2022-09-02] MEDS ORDERED: NIFEdipine E.R. 30 MG TABLET PO SCH (10:00)
[2022-09-02] MEDS ORDERED: CILOSTAZOL 50 MG TABLET PO SCH (10:00)
[2022-09-02] MEDS ORDERED: MINERAL OIL/PETROLAT/WATER TOPICAL CREAM 113 GM JAR TP SCH (10:15)
[2022-09-02] MEDS: ASPIRIN COATED 81 MG TABLET.EC PO SCH (10:48)
[2022-09-02] MEDS: PRENATAL VITAMINS W/ FOLIC ACID TABLET (FP) PO SCH (10:48)
[2022-09-02] MEDS: FLUOCINONIDE 0.05% CREAM (15 GM TUBE) TP SCH (10:49)
[2022-09-02] MEDS: NICOTINE 14 MG/24 HOURS TOPICAL PATCH TD SCH (10:50)
[2022-09-02] MEDS: PHENYLEPHRINE HCL/COCOA BUTTER SUPPOSITORY RC SCH (10:51)
[2022-09-02] MEDS ORDERED: INSULIN (NOVOLOG) ASPART 100 UNITS/ML 10ML VIAL ONE (11:39)
[2022-09-02 12:40] VITALS: RESP 16
[2022-09-02 16:34] VITALS: BP 134/82; PULSE 90; TEMP 98.6
== END 2022-09-02 18:38 | disposition other institution (70) | DRG 774 ==
LOC: YASAS 10:42 → Y6N 13:08
PROVIDERS: ADMIT Allergy & Immunology; ATTEND Surgery
PROC: HZ2ZZZZ Detoxification Services for Substance Abuse Treatment (ICD-10-PCS; principal; 2022-09-01)
DX: F10.230 Alcohol dependence with withdrawal, uncomplicated (principal); F13.20 Sedative, hypnotic or anxiolytic dependence, uncomplicated; F14.20 Cocaine dependence, uncomplicated; F17.210 Nicotine dependence, cigarettes, uncomplicated; I10 Essential (primary) hypertension; E78.5 Hyperlipidemia, unspecified; E11.42 Type 2 diabetes mellitus with diabetic polyneuropathy; Z79.4 Long term (current) use of insulin; L85.3 Xerosis cutis; M54.50 Low back pain, unspecified; G89.18 Other acute postprocedural pain; F19.282 Other psychoactive substance dependence with psychoactive substance-induced sleep disorder; G89.29 Other chronic pain; Z85.46 Personal history of malignant neoplasm of prostate; Z86.73 Personal history of transient ischemic attack (TIA), and cerebral infarction without residual deficits; Z88.0 Allergy status to penicillin; Z88.6 Allergy status to analgesic agent; Z91.011 Allergy to milk products
CPT/HCPCS: 36415; 80053; 81003; 82140; 82962; 85027; 86780; 86803; 87811; C9803-CS; U0003; U0005

== ENCOUNTER 2022-09-02 19:30 | Inpatient (IN) | payer OTHER ==
[2022-09-03] MEDS ORDERED: MAGNESIUM HYDROX 2400MG/30ML ORAL SUSPENSION 30 ML CUP PO PRN (02:48)
[2022-09-03] MEDS ORDERED: hydrOXYzine PAMOATE 25 MG CAPSULE (FP) PO PRN (02:48)
[2022-09-03] MEDS ORDERED: MAG HYDROX/AL HYDROX/SIMETH 30 ML UNIT-DOSE CUP PO PRN (02:48)
[2022-09-03] MEDS ORDERED: NICOTINE 10 MG CARTRIDGE (INHALER) IH PRN (02:48)
[2022-09-03] MEDS ORDERED: P-EPHED 60MG/TRIPROLIDI 2.5MG TABLET PO PRN (02:48)
[2022-09-03] MEDS ORDERED: guaiFENesin 200 MG/10 ML 10 ML UNIT-DOSE CUPS PO PRN (02:48)
[2022-09-03] MEDS ORDERED: BENZOCAINE/MENTHOL (CHLORASEPTIC ) LOZENGE MM PRN (02:48)
[2022-09-03] MEDS ORDERED: IBUPROFEN 400 MG TABLET (FP) PO PRN (02:48)
[2022-09-03] MEDS ORDERED: POLYETHYLENE GLYCOL (HEALTHYLAX) 3350 17 GM PACKET PO PRN (02:48)
[2022-09-03] MEDS ORDERED: INSULIN (NOVOLOG) ASPART 100 UNITS/ML 10ML VIAL ONE ×2 (04:08→12:01)
[2022-09-03] MEDS: ACETAMINOPHEN 325 MG TABLET (FP) PO PRN ×2 (06:29→21:53)
[2022-09-03] MEDS: INSULIN SLIDING SCALE (NOVOLOG) 1 VIAL SQ SCH ×4 (06:37→21:54)
[2022-09-03] MEDS ORDERED: INSULIN SLIDING SCALE (NOVOLOG) 1 VIAL SQ SCH (07:00)
[2022-09-03] MEDS: PRENATAL VITAMINS W/ FOLIC ACID TABLET (FP) PO SCH (09:51)
[2022-09-03] MEDS: NICOTINE 7 MG/24 HOURS TOPICAL PATCH TD SCH (09:52)
[2022-09-03] MEDS: ASPIRIN COATED 81 MG TABLET.EC PO SCH (09:52)
[2022-09-03] MEDS: FLUOCINONIDE 0.05% CREAM (15 GM TUBE) TP SCH ×2 (09:53→21:52)
[2022-09-03] MEDS: CILOSTAZOL 50 MG TABLET PO SCH (11:06)
[2022-09-03] MEDS: NIFEdipine E.R. 30 MG TABLET PO SCH (11:06)
[2022-09-03] MEDS: GABAPENTIN 400 MG CAPSULE PO SCH ×2 (13:15→21:49)
[2022-09-03] MEDS: FUROSEMIDE 40 MG TABLET (FP) PO SCH (13:16)
[2022-09-03] MEDS: LOPERAMIDE HCL 2 MG CAPSULE PO PRN ×2 (13:30→22:29)
[2022-09-03] MEDS ORDERED: PATIENT'S OWN MEDICATION (NON-FORMULARY) (Insulin Aspart [Novolog Flexpen] 100 UNIT/ML Ins SQ SCH (14:00)
[2022-09-03] MEDS: THIAMINE HCL 100 MG TABLET (FP) PO SCH (21:49)
[2022-09-03] MEDS: ATORVASTATIN CA 20 MG TABLET (FP) PO SCH (21:49)
[2022-09-03] MEDS: MELATONIN 5 MG TABLETS PO SCH (21:52)
[2022-09-03] MEDS: INSULIN (LEVEMIR) 100 UNITS/ML UNITS SQ SCH (21:54)
[2022-09-04] MEDS: ACETAMINOPHEN 325 MG TABLET (FP) PO PRN ×3 (02:21→21:17)
[2022-09-04] MEDS ORDERED: INSULIN (NOVOLOG) ASPART 100 UNITS/ML 10ML VIAL ONE ×2 (03:48→12:02)
[2022-09-04] MEDS: GABAPENTIN 400 MG CAPSULE PO SCH ×3 (06:49→21:17)
[2022-09-04] MEDS: FUROSEMIDE 40 MG TABLET (FP) PO SCH ×2 (07:00→14:00)
[2022-09-04] MEDS: INSULIN SLIDING SCALE (NOVOLOG) 1 VIAL SQ SCH ×4 (07:55→21:19)
[2022-09-04] MEDS: ASPIRIN COATED 81 MG TABLET.EC PO SCH (09:46)
[2022-09-04] MEDS: NICOTINE 7 MG/24 HOURS TOPICAL PATCH TD SCH (09:46)
[2022-09-04] MEDS: FLUOCINONIDE 0.05% CREAM (15 GM TUBE) TP SCH ×2 (09:46→21:20)
[2022-09-04] MEDS: PRENATAL VITAMINS W/ FOLIC ACID TABLET (FP) PO SCH (09:46)
[2022-09-04] MEDS: NIFEdipine E.R. 30 MG TABLET PO SCH (09:47)
[2022-09-04] MEDS: CILOSTAZOL 50 MG TABLET PO SCH (09:47)
[2022-09-04] MEDS: PHENYLEPHRINE HCL/COCOA BUTTER 1 EACH SUPP.RECT RC SCH ×2 (10:21→21:19)
[2022-09-04] MEDS: THIAMINE HCL 100 MG TABLET (FP) PO SCH (21:17)
[2022-09-04] MEDS: ATORVASTATIN CA 20 MG TABLET (FP) PO SCH (21:17)
[2022-09-04] MEDS: MELATONIN 5 MG TABLETS PO SCH (21:19)
[2022-09-04] MEDS: INSULIN (LEVEMIR) 100 UNITS/ML UNITS SQ SCH (21:20)
[2022-09-05] MEDS: FUROSEMIDE 40 MG TABLET (FP) PO SCH ×2 (06:12→14:14)
[2022-09-05] MEDS: GABAPENTIN 400 MG CAPSULE PO SCH ×3 (06:12→21:01)
[2022-09-05] MEDS ORDERED: INSULIN (NOVOLOG) ASPART 100 UNITS/ML 10ML VIAL ONE ×3 (07:12→17:04)
[2022-09-05] MEDS: INSULIN SLIDING SCALE (NOVOLOG) 1 VIAL SQ SCH ×4 (07:36→21:09)
[2022-09-05] MEDS: ASPIRIN COATED 81 MG TABLET.EC PO SCH (09:40)
[2022-09-05] MEDS: PRENATAL VITAMINS W/ FOLIC ACID TABLET (FP) PO SCH (09:40)
[2022-09-05] MEDS: CILOSTAZOL 50 MG TABLET PO SCH (09:41)
[2022-09-05] MEDS: NICOTINE 7 MG/24 HOURS TOPICAL PATCH TD SCH (09:41)
[2022-09-05] MEDS: NIFEdipine E.R. 30 MG TABLET PO SCH (09:41)
[2022-09-05] MEDS: FLUOCINONIDE 0.05% CREAM (15 GM TUBE) TP SCH (09:42)
[2022-09-05] MEDS: PHENYLEPHRINE HCL/COCOA BUTTER 1 EACH SUPP.RECT RC SCH ×2 (09:43→21:03)
[2022-09-05] MEDS: ACETAMINOPHEN 325 MG TABLET (FP) PO PRN (17:28)
[2022-09-05] MEDS: THIAMINE HCL 100 MG TABLET (FP) PO SCH (21:01)
[2022-09-05] MEDS: MELATONIN 5 MG TABLETS PO SCH (21:01)
[2022-09-05] MEDS: FLUOCINONIDE 0.05% CREAM (60 GM TUBE) TP SCH (21:02)
[2022-09-05] MEDS: ATORVASTATIN CA 20 MG TABLET (FP) PO SCH (21:02)
[2022-09-05] MEDS: INSULIN (LEVEMIR) 100 UNITS/ML UNITS SQ SCH (21:03)
[2022-09-06] MEDS: FUROSEMIDE 40 MG TABLET (FP) PO SCH ×2 (06:28→14:00)
[2022-09-06] MEDS: GABAPENTIN 400 MG CAPSULE PO SCH ×3 (06:28→21:13)
[2022-09-06] MEDS: ACETAMINOPHEN 325 MG TABLET (FP) PO PRN ×2 (06:30→21:17)
[2022-09-06] MEDS ORDERED: INSULIN (NOVOLOG) ASPART 100 UNITS/ML 10ML VIAL ONE ×3 (08:37→16:34)
[2022-09-06] MEDS: INSULIN SLIDING SCALE (NOVOLOG) 1 VIAL SQ SCH ×4 (08:38→21:15)
[2022-09-06] MEDS: PRENATAL VITAMINS W/ FOLIC ACID TABLET (FP) PO SCH (09:46)
[2022-09-06] MEDS: NICOTINE 7 MG/24 HOURS TOPICAL PATCH TD SCH (09:46)
[2022-09-06] MEDS: NIFEdipine E.R. 30 MG TABLET PO SCH (09:47)
[2022-09-06] MEDS: PHENYLEPHRINE HCL/COCOA BUTTER 1 EACH SUPP.RECT RC SCH ×2 (09:47→21:14)
[2022-09-06] MEDS: ASPIRIN COATED 81 MG TABLET.EC PO SCH (09:47)
[2022-09-06] MEDS: FLUOCINONIDE 0.05% CREAM (60 GM TUBE) TP SCH ×2 (09:47→21:48)
[2022-09-06] MEDS: CILOSTAZOL 50 MG TABLET PO SCH (09:47)
[2022-09-06] MEDS: THIAMINE HCL 100 MG TABLET (FP) PO SCH (21:13)
[2022-09-06] MEDS: TOLNAFTATE 1% CREAM 15 GM TUBE TP SCH (21:14)
[2022-09-06] MEDS: INSULIN (NOVOLOG) ASPART 100 UNITS/ML 10ML VIAL SQ SCH (21:14)
[2022-09-06] MEDS: ATORVASTATIN CA 20 MG TABLET (FP) PO SCH (21:15)
[2022-09-06] MEDS: INSULIN (LEVEMIR) 100 UNITS/ML UNITS SQ SCH (21:15)
[2022-09-06] MEDS: LOPERAMIDE HCL 2 MG CAPSULE PO PRN (21:16)
[2022-09-06] MEDS: MELATONIN 5 MG TABLETS PO SCH (21:18)
[2022-09-07] MEDS: GABAPENTIN 400 MG CAPSULE PO SCH ×3 (05:53→21:20)
[2022-09-07] MEDS: FUROSEMIDE 40 MG TABLET (FP) PO SCH ×2 (05:54→14:22)
[2022-09-07] MEDS: INSULIN SLIDING SCALE (NOVOLOG) 1 VIAL SQ SCH ×4 (07:50→21:18)
[2022-09-07] MEDS: INSULIN (NOVOLOG) ASPART 100 UNITS/ML 10ML VIAL SQ SCH ×4 (07:50→21:18)
[2022-09-07] MEDS: PRENATAL VITAMINS W/ FOLIC ACID TABLET (FP) PO SCH (09:50)
[2022-09-07] MEDS: ASPIRIN COATED 81 MG TABLET.EC PO SCH (09:51)
[2022-09-07] MEDS: NICOTINE 7 MG/24 HOURS TOPICAL PATCH TD SCH (09:51)
[2022-09-07] MEDS: PHENYLEPHRINE HCL/COCOA BUTTER 1 EACH SUPP.RECT RC SCH ×2 (09:52→21:21)
[2022-09-07] MEDS: FLUOCINONIDE 0.05% CREAM (60 GM TUBE) TP SCH ×2 (09:52→21:53)
[2022-09-07] MEDS: NIFEdipine E.R. 30 MG TABLET PO SCH (09:52)
[2022-09-07] MEDS: CILOSTAZOL 50 MG TABLET PO SCH (09:53)
[2022-09-07] MEDS: TOLNAFTATE 1% CREAM 15 GM TUBE TP SCH ×2 (09:55→21:21)
[2022-09-07] MEDS ORDERED: INSULIN (NOVOLOG) ASPART 100 UNITS/ML 10ML VIAL ONE ×2 (12:07→16:38)
[2022-09-07] MEDS: INSULIN (LEVEMIR) 100 UNITS/ML UNITS SQ SCH (21:19)
[2022-09-07] MEDS: THIAMINE HCL 100 MG TABLET (FP) PO SCH (21:20)
[2022-09-07] MEDS: ATORVASTATIN CA 20 MG TABLET (FP) PO SCH (21:20)
[2022-09-07] MEDS: LIDOCAINE VISCOUS 2% ORAL/TOP 15 ML UNIT-DOSE CUP MM PRN (21:22)
[2022-09-07] MEDS: ACETAMINOPHEN 325 MG TABLET (FP) PO PRN (21:24)
[2022-09-07] MEDS: MELATONIN 5 MG TABLETS PO SCH (21:54)
[2022-09-08] MEDS ORDERED: INSULIN (NOVOLOG) ASPART 100 UNITS/ML 10ML VIAL ONE (04:20)
[2022-09-08] MEDS: GABAPENTIN 400 MG CAPSULE PO SCH ×3 (06:30→21:10)
[2022-09-08] MEDS: FUROSEMIDE 40 MG TABLET (FP) PO SCH ×2 (06:31→13:47)
[2022-09-08] MEDS: INSULIN (NOVOLOG) ASPART 100 UNITS/ML 10ML VIAL SQ SCH ×4 (06:32→21:13)
[2022-09-08] MEDS: INSULIN SLIDING SCALE (NOVOLOG) 1 VIAL SQ SCH ×4 (07:45→21:13)
[2022-09-08] MEDS: NICOTINE 7 MG/24 HOURS TOPICAL PATCH TD SCH (09:51)
[2022-09-08] MEDS: PRENATAL VITAMINS W/ FOLIC ACID TABLET (FP) PO SCH (09:51)
[2022-09-08] MEDS: ASPIRIN COATED 81 MG TABLET.EC PO SCH (09:51)
[2022-09-08] MEDS: NIFEdipine E.R. 30 MG TABLET PO SCH (09:52)
[2022-09-08] MEDS: FLUOCINONIDE 0.05% CREAM (60 GM TUBE) TP SCH ×2 (09:52→21:14)
[2022-09-08] MEDS: PHENYLEPHRINE HCL/COCOA BUTTER 1 EACH SUPP.RECT RC SCH ×2 (09:53→21:14)
[2022-09-08] MEDS: TOLNAFTATE 1% CREAM 15 GM TUBE TP SCH ×2 (09:53→21:14)
[2022-09-08] MEDS: ACETAMINOPHEN 325 MG TABLET (FP) PO PRN ×2 (09:54→21:12)
[2022-09-08 14:00] VITALS: RESP 18
[2022-09-08] MEDS: THIAMINE HCL 100 MG TABLET (FP) PO SCH (21:10)
[2022-09-08] MEDS: ATORVASTATIN CA 20 MG TABLET (FP) PO SCH (21:11)
[2022-09-08] MEDS: LIDOCAINE VISCOUS 2% ORAL/TOP 15 ML UNIT-DOSE CUP MM PRN (21:11)
[2022-09-08] MEDS: INSULIN (LEVEMIR) 100 UNITS/ML UNITS SQ SCH (21:13)
[2022-09-08] MEDS: MELATONIN 5 MG TABLETS PO SCH (21:14)
[2022-09-09] MEDS: ACETAMINOPHEN 325 MG TABLET (FP) PO PRN ×2 (02:56→21:11)
[2022-09-09] MEDS: FUROSEMIDE 40 MG TABLET (FP) PO SCH ×2 (06:21→14:21)
[2022-09-09] MEDS: GABAPENTIN 400 MG CAPSULE PO SCH ×3 (06:21→21:10)
[2022-09-09] MEDS: INSULIN (NOVOLOG) ASPART 100 UNITS/ML 10ML VIAL SQ SCH ×3 (07:15→16:41)
[2022-09-09] MEDS: INSULIN SLIDING SCALE (NOVOLOG) 1 VIAL SQ SCH ×4 (07:16→21:12)
[2022-09-09] MEDS ORDERED: INSULIN (NOVOLOG) ASPART 100 UNITS/ML 10ML VIAL ONE (07:42)
[2022-09-09] MEDS: NICOTINE 7 MG/24 HOURS TOPICAL PATCH TD SCH (09:49)
[2022-09-09] MEDS: PRENATAL VITAMINS W/ FOLIC ACID TABLET (FP) PO SCH (09:49)
[2022-09-09] MEDS: TOLNAFTATE 1% CREAM 15 GM TUBE TP SCH ×2 (09:50→21:27)
[2022-09-09] MEDS: ASPIRIN COATED 81 MG TABLET.EC PO SCH (09:50)
[2022-09-09] MEDS: FLUOCINONIDE 0.05% CREAM (60 GM TUBE) TP SCH ×2 (09:50→21:27)
[2022-09-09] MEDS: NIFEdipine E.R. 30 MG TABLET PO SCH (09:51)
[2022-09-09] MEDS: CARBAMIDE PEROXIDE 6.5% OTIC 15 ML BOTTLE AD SCH ×4 (11:11→21:27)
[2022-09-09] MEDS: PHENYLEPHRINE HCL/COCOA BUTTER 1 EACH SUPP.RECT RC SCH ×2 (11:11→21:27)
[2022-09-09] MEDS: LACTULOSE 20 GM/30 ML UDC (FOR ORAL USE ONLY) PO SCH ×2 (14:21→21:10)
[2022-09-09] MEDS: MELATONIN 5 MG TABLETS PO SCH (21:10)
[2022-09-09] MEDS: THIAMINE HCL 100 MG TABLET (FP) PO SCH (21:10)
[2022-09-09] MEDS: ATORVASTATIN CA 20 MG TABLET (FP) PO SCH (21:10)
[2022-09-09] MEDS: INSULIN (LEVEMIR) 100 UNITS/ML UNITS SQ SCH (21:12)
[2022-09-10] MEDS: GABAPENTIN 400 MG CAPSULE PO SCH ×3 (06:11→21:21)
[2022-09-10] MEDS: LACTULOSE 20 GM/30 ML UDC (FOR ORAL USE ONLY) PO SCH ×3 (06:11→21:21)
[2022-09-10] MEDS: FUROSEMIDE 40 MG TABLET (FP) PO SCH ×3 (06:12→14:10)
[2022-09-10] MEDS ORDERED: INSULIN (NOVOLOG) ASPART 100 UNITS/ML 10ML VIAL ONE ×2 (07:46→11:09)
[2022-09-10] MEDS: INSULIN (NOVOLOG) ASPART 100 UNITS/ML 10ML VIAL SQ SCH ×3 (07:49→16:47)
[2022-09-10] MEDS: INSULIN SLIDING SCALE (NOVOLOG) 1 VIAL SQ SCH ×4 (07:50→21:22)
[2022-09-10] MEDS: PRENATAL VITAMINS W/ FOLIC ACID TABLET (FP) PO SCH (09:46)
[2022-09-10] MEDS: NIFEdipine E.R. 30 MG TABLET PO SCH (09:46)
[2022-09-10] MEDS: ASPIRIN COATED 81 MG TABLET.EC PO SCH (09:47)
[2022-09-10] MEDS: FLUOCINONIDE 0.05% CREAM (60 GM TUBE) TP SCH ×2 (09:49→21:21)
[2022-09-10] MEDS: NICOTINE 7 MG/24 HOURS TOPICAL PATCH TD SCH (09:50)
[2022-09-10] MEDS: PHENYLEPHRINE HCL/COCOA BUTTER 1 EACH SUPP.RECT RC SCH ×2 (09:50→21:25)
[2022-09-10] MEDS: CARBAMIDE PEROXIDE 6.5% OTIC 15 ML BOTTLE AD SCH ×4 (10:00→21:59)
[2022-09-10] MEDS ORDERED: WITCH HAZEL 50% (TUCKS) 40 PAD/JAR PAD TP PRN (10:20)
[2022-09-10] MEDS: TOLNAFTATE 1% CREAM 15 GM TUBE TP SCH ×2 (11:24→21:20)
[2022-09-10] MEDS: THIAMINE HCL 100 MG TABLET (FP) PO SCH (21:21)
[2022-09-10] MEDS: MELATONIN 5 MG TABLETS PO SCH (21:21)
[2022-09-10] MEDS: ATORVASTATIN CA 20 MG TABLET (FP) PO SCH (21:21)
[2022-09-10] MEDS: INSULIN (LEVEMIR) 100 UNITS/ML UNITS SQ SCH (21:24)
[2022-09-10] MEDS: ACETAMINOPHEN 325 MG TABLET (FP) PO PRN (21:25)
[2022-09-11] MEDS: FUROSEMIDE 40 MG TABLET (FP) PO SCH ×2 (06:43→14:14)
[2022-09-11] MEDS: GABAPENTIN 400 MG CAPSULE PO SCH ×3 (06:43→21:29)
[2022-09-11] MEDS: LACTULOSE 20 GM/30 ML UDC (FOR ORAL USE ONLY) PO SCH ×3 (06:44→21:29)
[2022-09-11] MEDS: ACETAMINOPHEN 325 MG TABLET (FP) PO PRN ×2 (06:46→19:19)
[2022-09-11] MEDS: LIDOCAINE VISCOUS 2% ORAL/TOP 15 ML UNIT-DOSE CUP MM PRN (06:48)
[2022-09-11] MEDS: INSULIN (NOVOLOG) ASPART 100 UNITS/ML 10ML VIAL SQ SCH ×3 (07:33→16:55)
[2022-09-11] MEDS: INSULIN SLIDING SCALE (NOVOLOG) 1 VIAL SQ SCH ×4 (07:33→21:25)
[2022-09-11] MEDS ORDERED: INSULIN (NOVOLOG) ASPART 100 UNITS/ML 10ML VIAL ONE ×3 (07:35→16:10)
[2022-09-11] MEDS: PRENATAL VITAMINS W/ FOLIC ACID TABLET (FP) PO SCH (09:40)
[2022-09-11] MEDS: ASPIRIN COATED 81 MG TABLET.EC PO SCH (09:41)
[2022-09-11] MEDS: FLUOCINONIDE 0.05% CREAM (60 GM TUBE) TP SCH ×2 (09:41→21:29)
[2022-09-11] MEDS: NICOTINE 7 MG/24 HOURS TOPICAL PATCH TD SCH (09:41)
[2022-09-11] MEDS: PHENYLEPHRINE HCL/COCOA BUTTER 1 EACH SUPP.RECT RC SCH ×2 (09:43→21:31)
[2022-09-11] MEDS: CARBAMIDE PEROXIDE 6.5% OTIC 15 ML BOTTLE AD SCH ×4 (09:43→21:32)
[2022-09-11] MEDS: NIFEdipine E.R. 30 MG TABLET PO SCH (09:43)
[2022-09-11] MEDS: TOLNAFTATE 1% CREAM 15 GM TUBE TP SCH ×2 (09:44→21:29)
[2022-09-11] MEDS: INSULIN (LEVEMIR) 100 UNITS/ML UNITS SQ SCH (21:25)
[2022-09-11] MEDS: ATORVASTATIN CA 20 MG TABLET (FP) PO SCH (21:29)
[2022-09-11] MEDS: THIAMINE HCL 100 MG TABLET (FP) PO SCH (21:29)
[2022-09-11] MEDS: MELATONIN 5 MG TABLETS PO SCH (21:29)
[2022-09-12] MEDS: GABAPENTIN 400 MG CAPSULE PO SCH ×2 (06:59→13:46)
[2022-09-12] MEDS: FUROSEMIDE 40 MG TABLET (FP) PO SCH ×2 (06:59→13:47)
[2022-09-12] MEDS: LACTULOSE 20 GM/30 ML UDC (FOR ORAL USE ONLY) PO SCH ×3 (06:59→21:03)
[2022-09-12] MEDS ORDERED: INSULIN (NOVOLOG) ASPART 100 UNITS/ML 10ML VIAL ONE (07:02)
[2022-09-12] MEDS: INSULIN (NOVOLOG) ASPART 100 UNITS/ML 10ML VIAL SQ SCH ×3 (07:03→17:02)
[2022-09-12] MEDS: INSULIN SLIDING SCALE (NOVOLOG) 1 VIAL SQ SCH ×4 (07:41→21:02)
[2022-09-12] MEDS: ASPIRIN COATED 81 MG TABLET.EC PO SCH (09:54)
[2022-09-12] MEDS: NICOTINE 7 MG/24 HOURS TOPICAL PATCH TD SCH (09:54)
[2022-09-12] MEDS: FLUOCINONIDE 0.05% CREAM (60 GM TUBE) TP SCH ×2 (09:54→21:03)
[2022-09-12] MEDS: CARBAMIDE PEROXIDE 6.5% OTIC 15 ML BOTTLE AD SCH ×4 (09:54→21:03)
[2022-09-12] MEDS: PRENATAL VITAMINS W/ FOLIC ACID TABLET (FP) PO SCH (09:57)
[2022-09-12] MEDS: NIFEdipine E.R. 30 MG TABLET PO SCH (09:57)
[2022-09-12] MEDS: TOLNAFTATE 1% CREAM 15 GM TUBE TP SCH ×2 (09:58→21:15)
[2022-09-12] MEDS: PHENYLEPHRINE HCL/COCOA BUTTER 1 EACH SUPP.RECT RC SCH ×2 (09:58→23:51)
[2022-09-12] MEDS: INSULIN (LEVEMIR) 100 UNITS/ML UNITS SQ SCH (21:02)
[2022-09-12] MEDS: ATORVASTATIN CA 20 MG TABLET (FP) PO SCH (21:03)
[2022-09-12] MEDS: MELATONIN 5 MG TABLETS PO SCH (21:03)
[2022-09-12] MEDS: THIAMINE HCL 100 MG TABLET (FP) PO SCH (21:03)
[2022-09-12] MEDS: GABAPENTIN 300 MG CAPSULE PO SCH (21:06)
[2022-09-12] MEDS: ACETAMINOPHEN 325 MG TABLET (FP) PO PRN (23:14)
[2022-09-13] MEDS ORDERED: INSULIN (NOVOLOG) ASPART 100 UNITS/ML 10ML VIAL ONE (03:50)
[2022-09-13] MEDS: FUROSEMIDE 40 MG TABLET (FP) PO SCH (07:00)
[2022-09-13] MEDS: LACTULOSE 20 GM/30 ML UDC (FOR ORAL USE ONLY) PO SCH ×3 (07:00→21:04)
[2022-09-13] MEDS: GABAPENTIN 300 MG CAPSULE PO SCH ×3 (07:00→21:04)
[2022-09-13] MEDS: INSULIN SLIDING SCALE (NOVOLOG) 1 VIAL SQ SCH ×4 (07:02→21:05)
[2022-09-13] MEDS: INSULIN (NOVOLOG) ASPART 100 UNITS/ML 10ML VIAL SQ SCH ×3 (07:42→16:33)
[2022-09-13] MEDS: PRENATAL VITAMINS W/ FOLIC ACID TABLET (FP) PO SCH (09:53)
[2022-09-13] MEDS: NICOTINE 7 MG/24 HOURS TOPICAL PATCH TD SCH (09:53)
[2022-09-13] MEDS: NIFEdipine E.R. 30 MG TABLET PO SCH (09:54)
[2022-09-13] MEDS: CARBAMIDE PEROXIDE 6.5% OTIC 15 ML BOTTLE AD SCH ×4 (09:54→21:13)
[2022-09-13] MEDS: ASPIRIN COATED 81 MG TABLET.EC PO SCH (09:54)
[2022-09-13] MEDS: TOLNAFTATE 1% CREAM 15 GM TUBE TP SCH ×2 (09:55→21:13)
[2022-09-13] MEDS: FLUOCINONIDE 0.05% CREAM (60 GM TUBE) TP SCH ×2 (09:55→21:07)
[2022-09-13] MEDS: PHENYLEPHRINE HCL/COCOA BUTTER 1 EACH SUPP.RECT RC SCH ×2 (10:27→21:06)
[2022-09-13] MEDS ORDERED: FUROSEMIDE 40 MG TABLET (FP) PO ONE (10:39)
[2022-09-13] MEDS: ACETAMINOPHEN 325 MG TABLET (FP) PO PRN (14:15)
[2022-09-13] MEDS: LIDOCAINE VISCOUS 2% ORAL/TOP 15 ML UNIT-DOSE CUP MM PRN (18:17)
[2022-09-13] MEDS: THIAMINE HCL 100 MG TABLET (FP) PO SCH (21:04)
[2022-09-13] MEDS: MELATONIN 5 MG TABLETS PO SCH (21:04)
[2022-09-13] MEDS: ATORVASTATIN CA 20 MG TABLET (FP) PO SCH (21:04)
[2022-09-13] MEDS: INSULIN (LEVEMIR) 100 UNITS/ML UNITS SQ SCH (21:05)
[2022-09-14] MEDS ORDERED: INSULIN (NOVOLOG) ASPART 100 UNITS/ML 10ML VIAL ONE ×4 (03:46→16:34)
[2022-09-14] MEDS: LACTULOSE 20 GM/30 ML UDC (FOR ORAL USE ONLY) PO SCH ×3 (07:00→22:04)
[2022-09-14] MEDS: GABAPENTIN 300 MG CAPSULE PO SCH ×3 (07:00→22:04)
[2022-09-14] MEDS: FUROSEMIDE 40 MG TABLET (FP) PO SCH (07:00)
[2022-09-14] MEDS: INSULIN (NOVOLOG) ASPART 100 UNITS/ML 10ML VIAL SQ SCH ×3 (07:40→16:46)
[2022-09-14] MEDS: INSULIN SLIDING SCALE (NOVOLOG) 1 VIAL SQ SCH ×4 (07:42→22:05)
[2022-09-14] MEDS: PRENATAL VITAMINS W/ FOLIC ACID TABLET (FP) PO SCH (09:42)
[2022-09-14] MEDS: ASPIRIN COATED 81 MG TABLET.EC PO SCH (09:43)
[2022-09-14] MEDS: NIFEdipine E.R. 30 MG TABLET PO SCH (09:43)
[2022-09-14] MEDS: PHENYLEPHRINE HCL/COCOA BUTTER 1 EACH SUPP.RECT RC SCH ×2 (09:43→22:04)
[2022-09-14] MEDS: TOLNAFTATE 1% CREAM 15 GM TUBE TP SCH ×2 (09:43→22:10)
[2022-09-14] MEDS: CARBAMIDE PEROXIDE 6.5% OTIC 15 ML BOTTLE AD SCH ×4 (09:44→22:09)
[2022-09-14] MEDS: FLUOCINONIDE 0.05% CREAM (60 GM TUBE) TP SCH ×2 (09:44→22:09)
[2022-09-14] MEDS: NICOTINE 7 MG/24 HOURS TOPICAL PATCH TD SCH (09:44)
[2022-09-14] MEDS: NAPROXEN 500 MG TABLET PO PRN (09:46)
[2022-09-14] MEDS: INSULIN (LEVEMIR) 100 UNITS/ML UNITS SQ SCH (22:03)
[2022-09-14] MEDS: THIAMINE HCL 100 MG TABLET (FP) PO SCH (22:04)
[2022-09-14] MEDS: ATORVASTATIN CA 20 MG TABLET (FP) PO SCH (22:04)
[2022-09-14] MEDS: MELATONIN 5 MG TABLETS PO SCH (22:09)
[2022-09-15] MEDS: FUROSEMIDE 40 MG TABLET (FP) PO SCH (06:15)
[2022-09-15] MEDS: GABAPENTIN 300 MG CAPSULE PO SCH ×3 (06:15→21:20)
[2022-09-15] MEDS: NAPROXEN 500 MG TABLET PO PRN ×2 (06:15→21:20)
[2022-09-15] MEDS: LACTULOSE 20 GM/30 ML UDC (FOR ORAL USE ONLY) PO SCH ×3 (06:16→21:20)
[2022-09-15] MEDS ORDERED: INSULIN (NOVOLOG) ASPART 100 UNITS/ML 10ML VIAL ONE (06:37)
[2022-09-15] MEDS: INSULIN (NOVOLOG) ASPART 100 UNITS/ML 10ML VIAL SQ SCH ×3 (07:38→16:41)
[2022-09-15] MEDS: INSULIN SLIDING SCALE (NOVOLOG) 1 VIAL SQ SCH ×4 (07:39→23:09)
[2022-09-15] MEDS: PRENATAL VITAMINS W/ FOLIC ACID TABLET (FP) PO SCH (09:32)
[2022-09-15] MEDS: ASPIRIN COATED 81 MG TABLET.EC PO SCH (09:32)
[2022-09-15] MEDS: NIFEdipine E.R. 30 MG TABLET PO SCH (09:32)
[2022-09-15] MEDS: PHENYLEPHRINE HCL/COCOA BUTTER 1 EACH SUPP.RECT RC SCH ×2 (09:32→21:20)
[2022-09-15] MEDS: TOLNAFTATE 1% CREAM 15 GM TUBE TP SCH ×2 (09:33→21:21)
[2022-09-15] MEDS: NICOTINE 7 MG/24 HOURS TOPICAL PATCH TD SCH (09:33)
[2022-09-15] MEDS: FLUOCINONIDE 0.05% CREAM (60 GM TUBE) TP SCH ×2 (09:33→21:43)
[2022-09-15] MEDS: CARBAMIDE PEROXIDE 6.5% OTIC 15 ML BOTTLE AD SCH ×4 (09:33→21:43)
[2022-09-15] MEDS ORDERED: NICOTINE 7 MG/24 HOURS TOPICAL PATCH TD PRN (15:46)
[2022-09-15] MEDS: MELATONIN 5 MG TABLETS PO SCH (21:20)
[2022-09-15] MEDS: ATORVASTATIN CA 20 MG TABLET (FP) PO SCH (21:20)
[2022-09-15] MEDS: THIAMINE HCL 100 MG TABLET (FP) PO SCH (21:20)
[2022-09-15] MEDS: INSULIN (LEVEMIR) 100 UNITS/ML UNITS SQ SCH (21:23)
[2022-09-16] MEDS: GABAPENTIN 300 MG CAPSULE PO SCH ×3 (07:14→21:05)
[2022-09-16] MEDS: LACTULOSE 20 GM/30 ML UDC (FOR ORAL USE ONLY) PO SCH ×3 (07:15→21:05)
[2022-09-16] MEDS: FUROSEMIDE 40 MG TABLET (FP) PO SCH (07:15)
[2022-09-16] MEDS ORDERED: INSULIN (NOVOLOG) ASPART 100 UNITS/ML 10ML VIAL ONE (07:57)
[2022-09-16] MEDS: INSULIN SLIDING SCALE (NOVOLOG) 1 VIAL SQ SCH ×4 (08:00→21:06)
[2022-09-16] MEDS: INSULIN (NOVOLOG) ASPART 100 UNITS/ML 10ML VIAL SQ SCH ×3 (08:00→16:38)
[2022-09-16] MEDS: PRENATAL VITAMINS W/ FOLIC ACID TABLET (FP) PO SCH (09:50)
[2022-09-16] MEDS: NIFEdipine E.R. 30 MG TABLET PO SCH (09:50)
[2022-09-16] MEDS: ASPIRIN COATED 81 MG TABLET.EC PO SCH (09:50)
[2022-09-16] MEDS: PHENYLEPHRINE HCL/COCOA BUTTER 1 EACH SUPP.RECT RC SCH ×2 (09:51→21:07)
[2022-09-16] MEDS: TOLNAFTATE 1% CREAM 15 GM TUBE TP SCH ×2 (09:52→21:08)
[2022-09-16] MEDS: FLUOCINONIDE 0.05% CREAM (60 GM TUBE) TP SCH ×2 (09:53→21:07)
[2022-09-16] MEDS: LIDOCAINE 5% TOPICAL PATCH TP SCH (16:00)
[2022-09-16] MEDS: ATORVASTATIN CA 20 MG TABLET (FP) PO SCH (21:05)
[2022-09-16] MEDS: THIAMINE HCL 100 MG TABLET (FP) PO SCH (21:05)
[2022-09-16] MEDS: INSULIN (LEVEMIR) 100 UNITS/ML UNITS SQ SCH (21:06)
[2022-09-16] MEDS: MELATONIN 5 MG TABLETS PO SCH (21:07)
[2022-09-16] MEDS: LIDOCAINE PATCH REMOVAL MC SCH (21:07)
[2022-09-17] MEDS: LACTULOSE 20 GM/30 ML UDC (FOR ORAL USE ONLY) PO SCH ×3 (06:31→22:10)
[2022-09-17] MEDS: GABAPENTIN 300 MG CAPSULE PO SCH ×3 (06:31→22:11)
[2022-09-17] MEDS: FUROSEMIDE 40 MG TABLET (FP) PO SCH (06:31)
[2022-09-17] MEDS: INSULIN (NOVOLOG) ASPART 100 UNITS/ML 10ML VIAL SQ SCH ×3 (07:18→17:40)
[2022-09-17] MEDS: INSULIN SLIDING SCALE (NOVOLOG) 1 VIAL SQ SCH ×4 (07:19→22:16)
[2022-09-17] MEDS ORDERED: INSULIN (NOVOLOG) ASPART 100 UNITS/ML 10ML VIAL ONE (08:19)
[2022-09-17] MEDS: PRENATAL VITAMINS W/ FOLIC ACID TABLET (FP) PO SCH (09:43)
[2022-09-17] MEDS: ASPIRIN COATED 81 MG TABLET.EC PO SCH (09:43)
[2022-09-17] MEDS: PHENYLEPHRINE HCL/COCOA BUTTER 1 EACH SUPP.RECT RC SCH ×2 (09:43→22:10)
[2022-09-17] MEDS: LIDOCAINE 5% TOPICAL PATCH TP SCH (09:44)
[2022-09-17] MEDS: TOLNAFTATE 1% CREAM 15 GM TUBE TP SCH ×2 (09:44→22:09)
[2022-09-17] MEDS: FLUOCINONIDE 0.05% CREAM (60 GM TUBE) TP SCH ×2 (09:45→22:09)
[2022-09-17] MEDS: NIFEdipine E.R. 30 MG TABLET PO SCH (10:39)
[2022-09-17] MEDS: THIAMINE HCL 100 MG TABLET (FP) PO SCH (22:11)
[2022-09-17] MEDS: MELATONIN 5 MG TABLETS PO SCH (22:11)
[2022-09-17] MEDS: ATORVASTATIN CA 20 MG TABLET (FP) PO SCH (22:11)
[2022-09-17] MEDS: LIDOCAINE PATCH REMOVAL MC SCH (22:11)
[2022-09-17] MEDS: ACETAMINOPHEN 325 MG TABLET (FP) PO PRN (22:12)
[2022-09-17] MEDS: INSULIN (LEVEMIR) 100 UNITS/ML UNITS SQ SCH (22:14)
[2022-09-18] MEDS: GABAPENTIN 300 MG CAPSULE PO SCH ×3 (06:27→21:18)
[2022-09-18] MEDS: FUROSEMIDE 40 MG TABLET (FP) PO SCH (06:27)
[2022-09-18] MEDS: LACTULOSE 20 GM/30 ML UDC (FOR ORAL USE ONLY) PO SCH ×3 (06:27→21:17)
[2022-09-18] MEDS: INSULIN SLIDING SCALE (NOVOLOG) 1 VIAL SQ SCH ×4 (07:57→21:25)
[2022-09-18] MEDS: INSULIN (NOVOLOG) ASPART 100 UNITS/ML 10ML VIAL SQ SCH ×3 (07:58→16:59)
[2022-09-18] MEDS: LIDOCAINE 5% TOPICAL PATCH TP SCH (09:41)
[2022-09-18] MEDS: PRENATAL VITAMINS W/ FOLIC ACID TABLET (FP) PO SCH (09:41)
[2022-09-18] MEDS: ASPIRIN COATED 81 MG TABLET.EC PO SCH (09:42)
[2022-09-18] MEDS: FLUOCINONIDE 0.05% CREAM (60 GM TUBE) TP SCH ×2 (09:42→21:21)
[2022-09-18] MEDS: TOLNAFTATE 1% CREAM 15 GM TUBE TP SCH ×2 (09:43→21:22)
[2022-09-18] MEDS: PHENYLEPHRINE HCL/COCOA BUTTER 1 EACH SUPP.RECT RC SCH ×2 (09:43→21:22)
[2022-09-18] MEDS: NIFEdipine E.R. 30 MG TABLET PO SCH (09:43)
[2022-09-18] MEDS: ACETAMINOPHEN 325 MG TABLET (FP) PO PRN (09:44)
[2022-09-18] MEDS: THIAMINE HCL 100 MG TABLET (FP) PO SCH (21:18)
[2022-09-18] MEDS: LIDOCAINE PATCH REMOVAL MC SCH (21:19)
[2022-09-18] MEDS: INSULIN (LEVEMIR) 100 UNITS/ML UNITS SQ SCH (21:19)
[2022-09-18] MEDS: ATORVASTATIN CA 20 MG TABLET (FP) PO SCH (21:19)
[2022-09-18] MEDS: MELATONIN 5 MG TABLETS PO SCH (21:22)
[2022-09-19] MEDS: GABAPENTIN 300 MG CAPSULE PO SCH ×3 (06:16→21:07)
[2022-09-19] MEDS: LACTULOSE 20 GM/30 ML UDC (FOR ORAL USE ONLY) PO SCH ×3 (06:16→21:07)
[2022-09-19] MEDS: FUROSEMIDE 40 MG TABLET (FP) PO SCH ×2 (06:17→14:01)
[2022-09-19] MEDS: INSULIN (NOVOLOG) ASPART 100 UNITS/ML 10ML VIAL SQ SCH ×3 (07:53→16:53)
[2022-09-19] MEDS: INSULIN SLIDING SCALE (NOVOLOG) 1 VIAL SQ SCH ×4 (07:53→23:20)
[2022-09-19] MEDS: FLUOCINONIDE 0.05% CREAM (60 GM TUBE) TP SCH ×2 (09:52→21:50)
[2022-09-19] MEDS: ASPIRIN COATED 81 MG TABLET.EC PO SCH (09:52)
[2022-09-19] MEDS: LIDOCAINE 5% TOPICAL PATCH TP SCH (09:52)
[2022-09-19] MEDS: PRENATAL VITAMINS W/ FOLIC ACID TABLET (FP) PO SCH (09:52)
[2022-09-19] MEDS: NIFEdipine E.R. 30 MG TABLET PO SCH (09:53)
[2022-09-19] MEDS: TOLNAFTATE 1% CREAM 15 GM TUBE TP SCH ×2 (09:53→21:07)
[2022-09-19] MEDS: PHENYLEPHRINE HCL/COCOA BUTTER 1 EACH SUPP.RECT RC SCH ×2 (09:53→21:07)
[2022-09-19] MEDS: ACETAMINOPHEN 325 MG TABLET (FP) PO PRN ×2 (09:55→21:08)
[2022-09-19] MEDS ORDERED: INSULIN (NOVOLOG) ASPART 100 UNITS/ML 10ML VIAL ONE (12:07)
[2022-09-19] MEDS: INSULIN (LEVEMIR) 100 UNITS/ML UNITS SQ SCH (21:06)
[2022-09-19] MEDS: ATORVASTATIN CA 20 MG TABLET (FP) PO SCH (21:07)
[2022-09-19] MEDS: THIAMINE HCL 100 MG TABLET (FP) PO SCH (21:09)
[2022-09-19] MEDS: LIDOCAINE PATCH REMOVAL MC SCH (21:10)
[2022-09-19] MEDS: MELATONIN 5 MG TABLETS PO SCH (21:10)
[2022-09-20] MEDS: GABAPENTIN 300 MG CAPSULE PO SCH ×2 (06:23→14:25)
[2022-09-20] MEDS: LACTULOSE 20 GM/30 ML UDC (FOR ORAL USE ONLY) PO SCH ×2 (06:23→14:27)
[2022-09-20] MEDS: FUROSEMIDE 40 MG TABLET (FP) PO SCH ×2 (06:23→14:25)
[2022-09-20] MEDS: ACETAMINOPHEN 325 MG TABLET (FP) PO PRN (06:26)
[2022-09-20 06:51] VITALS: TEMP 98.1
[2022-09-20] MEDS: INSULIN (NOVOLOG) ASPART 100 UNITS/ML 10ML VIAL SQ SCH ×2 (08:01→12:14)
[2022-09-20] MEDS: INSULIN SLIDING SCALE (NOVOLOG) 1 VIAL SQ SCH ×2 (08:02→12:14)
[2022-09-20] MEDS: PRENATAL VITAMINS W/ FOLIC ACID TABLET (FP) PO SCH (09:47)
[2022-09-20] MEDS: FLUOCINONIDE 0.05% CREAM (60 GM TUBE) TP SCH (09:48)
[2022-09-20] MEDS: ASPIRIN COATED 81 MG TABLET.EC PO SCH (09:48)
[2022-09-20] MEDS: TOLNAFTATE 1% CREAM 15 GM TUBE TP SCH (09:48)
[2022-09-20] MEDS: NIFEdipine E.R. 30 MG TABLET PO SCH (09:49)
[2022-09-20] MEDS ORDERED: diphenhydrAMINE HCL 50 MG CAPSULE PO PRN (10:03)
[2022-09-20] MEDS: PHENYLEPHRINE HCL/COCOA BUTTER 1 EACH SUPP.RECT RC SCH (10:33)
[2022-09-20] MEDS ORDERED: LIDOCAINE 5% TOPICAL PATCH TP SCH (10:45)
[2022-09-20 14:33] VITALS: BP 145/75; PULSE 96
[2022-09-20] MEDS ORDERED: LIDOCAINE PATCH REMOVAL MC SCH (22:00)
== END 2022-09-20 14:25 | disposition home or self-care (01) | DRG 772 ==
LOC: YASAS 19:30 → Y5N 19:31
PROVIDERS: ADMIT Allergy & Immunology; ATTEND Psychiatry & Neurology Pain Medicine
PROC: HZ42ZZZ Group Counseling for Substance Abuse Treatment, Cognitive-Behavioral (ICD-10-PCS; principal; 2022-09-02)
DX: F10.20 Alcohol dependence, uncomplicated (principal); F14.20 Cocaine dependence, uncomplicated; F13.20 Sedative, hypnotic or anxiolytic dependence, uncomplicated; F16.10 Hallucinogen abuse, uncomplicated; F17.210 Nicotine dependence, cigarettes, uncomplicated; F31.9 Bipolar disorder, unspecified; F41.9 Anxiety disorder, unspecified; I10 Essential (primary) hypertension; E78.5 Hyperlipidemia, unspecified; E10.42 Type 1 diabetes mellitus with diabetic polyneuropathy; Z79.4 Long term (current) use of insulin; G47.00 Insomnia, unspecified; M54.50 Low back pain, unspecified; G89.29 Other chronic pain; H61.21 Impacted cerumen, right ear; B35.1 Tinea unguium; R60.0 Localized edema; R79.89 Other specified abnormal findings of blood chemistry; K62.5 Hemorrhage of anus and rectum; K64.4 Residual hemorrhoidal skin tags; Z85.46 Personal history of malignant neoplasm of prostate; Z99.89 Dependence on other enabling machines and devices; Z80.0 Family history of malignant neoplasm of digestive organs; Z91.014 Allergy to mammalian meats; Z91.011 Allergy to milk products
CPT/HCPCS: 82140; 82962; 93005; 93010

== ENCOUNTER 2022-10-20 14:28 | Inpatient (IN) | payer OTHER ==
[2022-10-20 16:35] VITALS: BMI 28.8
[2022-10-20] MEDS ORDERED: INSULIN (NOVOLOG) ASPART 100 UNITS/ML 10ML VIAL SQ ONE (17:49)
[2022-10-20] MEDS ORDERED: INSULIN (NOVOLOG) ASPART 100 UNITS/ML 10ML VIAL ONE (17:58)
[2022-10-20] MEDS ORDERED: POLYETHYLENE GLYCOL (HEALTHYLAX) 3350 17 GM PACKET PO PRN (18:27)
[2022-10-20] MEDS ORDERED: ACETAMINOPHEN 325 MG TABLET (FP) PO PRN (18:27)
[2022-10-20] MEDS ORDERED: guaiFENesin 200 MG/10 ML 10 ML UNIT-DOSE CUPS PO PRN (18:27)
[2022-10-20] MEDS ORDERED: ONDANSETRON *ODT* 4 MG TABLET SL PRN (18:27)
[2022-10-20] MEDS ORDERED: MAG HYDROX/AL HYDROX/SIMETH 30 ML UNIT-DOSE CUP PO PRN (18:27)
[2022-10-20] MEDS ORDERED: LOPERAMIDE HCL 2 MG CAPSULE PO PRN (18:27)
[2022-10-20] MEDS ORDERED: P-EPHED 60MG/TRIPROLIDI 2.5MG TABLET PO PRN (18:27)
[2022-10-20] MEDS ORDERED: MAGNESIUM HYDROX 2400MG/30ML ORAL SUSPENSION 30 ML CUP PO PRN (18:27)
[2022-10-20] MEDS ORDERED: DICYCLOMINE HCL 10 MG CAPSULE PO PRN (18:27)
[2022-10-20] MEDS ORDERED: BENZOCAINE/MENTHOL (CHLORASEPTIC ) LOZENGE MM PRN (18:27)
[2022-10-20] MEDS ORDERED: COLLOIDAL OATMEAL 1 BAR EACH TP PRN (18:31)
[2022-10-20] MEDS: THIAMINE HCL 100 MG TABLET (FP) PO SCH (22:10)
[2022-10-20] MEDS: ATORVASTATIN CA 20 MG TABLET (FP) PO SCH (22:10)
[2022-10-20] MEDS: diazePAM 5 MG TABLET PO SCH (22:10)
[2022-10-20] MEDS: FLUOCINONIDE 0.05% CREAM (15 GM TUBE) TP SCH (22:10)
[2022-10-20] MEDS: INSULIN SLIDING SCALE (NOVOLOG) 1 VIAL SQ SCH (22:13)
[2022-10-20] MEDS: ACETAMINOPHEN 325 MG TABLET (FP) PO PRN (22:42)
[2022-10-21] MEDS: diazePAM 5 MG TABLET PO SCH ×4 (05:50→22:41)
[2022-10-21] MEDS: ACETAMINOPHEN 325 MG TABLET (FP) PO PRN ×3 (05:51→22:44)
[2022-10-21] MEDS: INSULIN SLIDING SCALE (NOVOLOG) 1 VIAL SQ SCH ×4 (06:32→22:41)
[2022-10-21] MEDS: VITAMINS A AND D TOPICAL OINTMENT 60 GM TUBE TP SCH ×4 (06:35→17:48)
[2022-10-21] MEDS: MINERAL OIL/PETROLAT/WATER TOPICAL CREAM 113 GM JAR TP PRN (10:36)
[2022-10-21] MEDS: ASPIRIN COATED 81 MG TABLET.EC PO SCH (10:36)
[2022-10-21] MEDS: METHOCARBAMOL 500 MG TABLET PO PRN (10:36)
[2022-10-21] MEDS: PRENATAL VITAMINS W/ FOLIC ACID TABLET (FP) PO SCH (10:36)
[2022-10-21] MEDS: FLUOCINONIDE 0.05% CREAM (15 GM TUBE) TP SCH ×2 (10:36→21:05)
[2022-10-21 11:04] LABS: CALCIUM 8.9 mg/dL (8.5-10.1); HEMATOCRIT 44.2 % (35.4-49); MCH 31.4 pg (25.7-33.7); MEAN CELL VOLUME 92.4 fl (80-96); PLATELET COUNT 189 10^3/uL (134-434); RBC 4.78 M/mm3 (4.00-5.60); RDW 13.6 % (11.9-15.9); WHITE BLOOD COUNT 4.6 K/mm3 (4.0-10.0)
[2022-10-21 11:05] LABS: ALBUMIN 3.2 g/dl (3.4-5.0)
[2022-10-21 11:08] LABS: CREATININE 1.2 mg/dL (0.55-1.3)
[2022-10-21 11:10] LABS: BILIRUBIN,TOTAL 0.9 mg/dL (0.2-1); TOT PROT 6.6 g/dl (6.4-8.2)
[2022-10-21] MEDS ORDERED: INSULIN (NOVOLOG) ASPART 100 UNITS/ML 10ML VIAL ONE ×2 (11:40→17:06)
[2022-10-21] MEDS ORDERED: COLLOIDAL OATMEAL 1 BAR EACH TP PRN (15:40)
[2022-10-21] MEDS: CILOSTAZOL 50 MG TABLET PO SCH (15:51)
[2022-10-21] MEDS: CLOTRIMAZOLE 1% CREAM TP SCH (21:05)
[2022-10-21] MEDS: ATORVASTATIN CA 20 MG TABLET (FP) PO SCH (22:41)
[2022-10-21] MEDS: THIAMINE HCL 100 MG TABLET (FP) PO SCH (22:41)
[2022-10-21] MEDS: INSULIN (LEVEMIR) 100 UNITS/ML UNITS SQ SCH (22:42)
[2022-10-21] MEDS: diphenhydrAMINE HCL 25 MG CAPSULE (FP) PO PRN (22:44)
[2022-10-22] MEDS: VITAMINS A AND D TOPICAL OINTMENT 60 GM TUBE TP SCH ×5 (00:16→23:00)
[2022-10-22] MEDS: diazePAM 5 MG TABLET PO SCH ×2 (06:07→17:52)
[2022-10-22] MEDS: INSULIN SLIDING SCALE (NOVOLOG) 1 VIAL SQ SCH ×4 (06:07→22:40)
[2022-10-22] MEDS: CILOSTAZOL 50 MG TABLET PO SCH (09:54)
[2022-10-22] MEDS: FLUOCINONIDE 0.05% CREAM (15 GM TUBE) TP SCH ×2 (09:55→22:39)
[2022-10-22] MEDS: CLOTRIMAZOLE 1% CREAM TP SCH ×2 (09:55→22:40)
[2022-10-22] MEDS: ASPIRIN COATED 81 MG TABLET.EC PO SCH (09:55)
[2022-10-22] MEDS: PRENATAL VITAMINS W/ FOLIC ACID TABLET (FP) PO SCH (09:55)
[2022-10-22] MEDS: diazePAM 5 MG TABLET PO PRN (10:02)
[2022-10-22] MEDS: MINERAL OIL/PETROLAT/WATER TOPICAL CREAM 113 GM JAR TP PRN (11:50)
[2022-10-22] MEDS: ACETAMINOPHEN 325 MG TABLET (FP) PO PRN (15:17)
[2022-10-22] MEDS: METHOCARBAMOL 500 MG TABLET PO PRN ×2 (15:17→22:39)
[2022-10-22] MEDS ORDERED: INSULIN (NOVOLOG) ASPART 100 UNITS/ML 10ML VIAL ONE (17:12)
[2022-10-22] MEDS: INSULIN (LEVEMIR) 100 UNITS/ML UNITS SQ SCH (22:39)
[2022-10-22] MEDS: THIAMINE HCL 100 MG TABLET (FP) PO SCH (22:39)
[2022-10-22] MEDS: ATORVASTATIN CA 20 MG TABLET (FP) PO SCH (22:39)
[2022-10-23] MEDS ORDERED: INSULIN (NOVOLOG) ASPART 100 UNITS/ML 10ML VIAL ONE ×2 (05:36→11:41)
[2022-10-23] MEDS: ACETAMINOPHEN 325 MG TABLET (FP) PO PRN ×4 (05:38→23:24)
[2022-10-23] MEDS ORDERED: diazePAM 5 MG TABLET PO ONE (06:00)
[2022-10-23] MEDS: INSULIN SLIDING SCALE (NOVOLOG) 1 VIAL SQ SCH ×4 (06:27→23:18)
[2022-10-23] MEDS: VITAMINS A AND D TOPICAL OINTMENT 60 GM TUBE TP SCH ×4 (06:28→23:51)
[2022-10-23] MEDS: PRENATAL VITAMINS W/ FOLIC ACID TABLET (FP) PO SCH (10:45)
[2022-10-23] MEDS: CLOTRIMAZOLE 1% CREAM TP SCH ×2 (10:45→22:48)
[2022-10-23] MEDS: ASPIRIN COATED 81 MG TABLET.EC PO SCH (10:45)
[2022-10-23] MEDS: CILOSTAZOL 50 MG TABLET PO SCH (10:45)
[2022-10-23] MEDS: MINERAL OIL/PETROLAT/WATER TOPICAL CREAM 113 GM JAR TP PRN (10:46)
[2022-10-23] MEDS: METHOCARBAMOL 500 MG TABLET PO PRN ×3 (10:47→23:24)
[2022-10-23] MEDS: FLUOCINONIDE 0.05% CREAM (15 GM TUBE) TP SCH ×2 (12:22→22:48)
[2022-10-23] MEDS: diazePAM 5 MG TABLET PO PRN (17:46)
[2022-10-23] MEDS: CARBAMIDE PEROXIDE 6.5% OTIC 15 ML BOTTLE AU SCH (22:48)
[2022-10-23] MEDS: ATORVASTATIN CA 20 MG TABLET (FP) PO SCH (22:48)
[2022-10-23] MEDS: THIAMINE HCL 100 MG TABLET (FP) PO SCH (22:49)
[2022-10-23] MEDS: diphenhydrAMINE HCL 25 MG CAPSULE (FP) PO PRN (23:14)
[2022-10-23] MEDS: INSULIN (LEVEMIR) 100 UNITS/ML UNITS SQ SCH (23:18)
[2022-10-24] MEDS: CARBAMIDE PEROXIDE 6.5% OTIC 15 ML BOTTLE AU SCH ×2 (00:47→10:45)
[2022-10-24] MEDS: VITAMINS A AND D TOPICAL OINTMENT 60 GM TUBE TP SCH ×2 (06:02→11:33)
[2022-10-24] MEDS: INSULIN SLIDING SCALE (NOVOLOG) 1 VIAL SQ SCH ×2 (06:04→11:33)
[2022-10-24 06:17] VITALS: TEMP 97.1
[2022-10-24 10:44] VITALS: BP 124/75; PULSE 101; RESP 20
[2022-10-24] MEDS: CLOTRIMAZOLE 1% CREAM TP SCH (10:45)
[2022-10-24] MEDS: FLUOCINONIDE 0.05% CREAM (15 GM TUBE) TP SCH (10:45)
[2022-10-24] MEDS: MINERAL OIL/PETROLAT/WATER TOPICAL CREAM 113 GM JAR TP PRN (10:45)
[2022-10-24] MEDS: PRENATAL VITAMINS W/ FOLIC ACID TABLET (FP) PO SCH (10:46)
[2022-10-24] MEDS: ASPIRIN COATED 81 MG TABLET.EC PO SCH (10:46)
[2022-10-24] MEDS: METHOCARBAMOL 500 MG TABLET PO PRN (10:47)
[2022-10-24] MEDS: ACETAMINOPHEN 325 MG TABLET (FP) PO PRN (10:47)
[2022-10-24] MEDS: CILOSTAZOL 50 MG TABLET PO SCH (10:52)
[2022-10-24] MEDS ORDERED: INSULIN (NOVOLOG) ASPART 100 UNITS/ML 10ML VIAL ONE (11:36)
[2022-10-24] MEDS ORDERED: INSULIN (LEVEMIR) 100 UNITS/ML UNITS SQ SCH (22:00)
== END 2022-10-24 12:38 | disposition other institution (70) | DRG 774 ==
LOC: YASAS 14:28 → Y6N 18:36
PROVIDERS: ADMIT Allergy & Immunology; ATTEND Surgery
PROC: HZ2ZZZZ Detoxification Services for Substance Abuse Treatment (ICD-10-PCS; principal; 2022-10-20)
DX: F10.230 Alcohol dependence with withdrawal, uncomplicated (principal); F14.20 Cocaine dependence, uncomplicated; F16.20 Hallucinogen dependence, uncomplicated; F17.210 Nicotine dependence, cigarettes, uncomplicated; F19.282 Other psychoactive substance dependence with psychoactive substance-induced sleep disorder; F32.A Depression, unspecified; E11.42 Type 2 diabetes mellitus with diabetic polyneuropathy; E78.5 Hyperlipidemia, unspecified; I10 Essential (primary) hypertension; K21.9 Gastro-esophageal reflux disease without esophagitis; K29.70 Gastritis, unspecified, without bleeding; Z79.4 Long term (current) use of insulin; M17.11 Unilateral primary osteoarthritis, right knee; B35.6 Tinea cruris; Z86.73 Personal history of transient ischemic attack (TIA), and cerebral infarction without residual deficits; Z88.0 Allergy status to penicillin; Z91.011 Allergy to milk products; Z88.6 Allergy status to analgesic agent
CPT/HCPCS: 36415; 80053; 82962; 83036; 85027; 86780; C9803-CS; U0003; U0005

== ENCOUNTER 2022-10-24 12:45 | Inpatient (IN) | payer OTHER ==
[2022-10-24] MEDS ORDERED: MAGNESIUM HYDROX 2400MG/30ML ORAL SUSPENSION 30 ML CUP PO PRN (15:07)
[2022-10-24] MEDS ORDERED: IBUPROFEN 400 MG TABLET (FP) PO PRN (15:07)
[2022-10-24] MEDS ORDERED: BENZONATATE 200 MG CAPSULE PO PRN (15:07)
[2022-10-24] MEDS ORDERED: POLYETHYLENE GLYCOL (HEALTHYLAX) 3350 17 GM PACKET PO PRN (15:07)
[2022-10-24] MEDS ORDERED: METHYLNALTREXONE BROMIDE (RELISTOR) 150 MG TABLET PO PRN (15:07)
[2022-10-24] MEDS ORDERED: guaiFENesin 600 MG TABLET.ER (FP) PO PRN (15:07)
[2022-10-24] MEDS ORDERED: IBUPROFEN 600 MG TABLET (FP) PO PRN (15:07)
[2022-10-24] MEDS ORDERED: NALOXONE HCL 0.4 MG/ML VIAL IVPUSH PRN (15:07)
[2022-10-24] MEDS ORDERED: NICOTINE 10 MG CARTRIDGE (INHALER) IH PRN (15:07)
[2022-10-24] MEDS ORDERED: hydrOXYzine PAMOATE 25 MG CAPSULE (FP) PO PRN (15:07)
[2022-10-24] MEDS ORDERED: NALOXONE HCL (KLOXXADO) 8 MG SPRAY NS PRN (15:07)
[2022-10-24] MEDS ORDERED: BENZOCAINE/MENTHOL (CHLORASEPTIC ) LOZENGE MM PRN (15:07)
[2022-10-24] MEDS: INSULIN SLIDING SCALE (NOVOLOG) 1 VIAL SQ SCH ×2 (16:34→21:39)
[2022-10-24] MEDS: ATORVASTATIN CA 20 MG TABLET (FP) PO SCH (21:36)
[2022-10-24] MEDS: THIAMINE HCL 100 MG TABLET (FP) PO SCH (21:36)
[2022-10-24] MEDS: MELATONIN 5 MG TABLETS PO SCH (21:36)
[2022-10-24] MEDS: FLUOCINONIDE 0.05% CREAM (15 GM TUBE) TP SCH (21:37)
[2022-10-24] MEDS: ACETAMINOPHEN 325 MG TABLET (FP) PO PRN (21:38)
[2022-10-24] MEDS: INSULIN (LEVEMIR) 100 UNITS/ML UNITS SQ SCH (21:40)
[2022-10-25] MEDS: ACETAMINOPHEN 325 MG TABLET (FP) PO PRN ×2 (02:47→10:24)
[2022-10-25] MEDS: INSULIN SLIDING SCALE (NOVOLOG) 1 VIAL SQ SCH ×4 (06:40→21:05)
[2022-10-25] MEDS ORDERED: COLLOIDAL OATMEAL 1 BAR EACH TP PRN (09:44)
[2022-10-25] MEDS: ASPIRIN COATED 81 MG TABLET.EC PO SCH (10:18)
[2022-10-25] MEDS: CARBAMIDE PEROXIDE 6.5% OTIC 15 ML BOTTLE AU SCH (10:18)
[2022-10-25] MEDS: PRENATAL VITAMINS W/ FOLIC ACID TABLET (FP) PO SCH (10:19)
[2022-10-25] MEDS: FLUOCINONIDE 0.05% CREAM (15 GM TUBE) TP SCH ×2 (10:19→21:06)
[2022-10-25] MEDS: CILOSTAZOL 50 MG TABLET PO SCH (10:19)
[2022-10-25] MEDS: TOLNAFTATE 1% CREAM 15 GM TUBE TP SCH ×2 (11:59→21:06)
[2022-10-25] MEDS: GABAPENTIN 400 MG CAPSULE PO SCH ×2 (13:27→21:02)
[2022-10-25] MEDS: MELATONIN 5 MG TABLETS PO SCH (21:01)
[2022-10-25] MEDS: THIAMINE HCL 100 MG TABLET (FP) PO SCH (21:01)
[2022-10-25] MEDS: ATORVASTATIN CA 20 MG TABLET (FP) PO SCH (21:02)
[2022-10-25] MEDS: diphenhydrAMINE HCL 25 MG CAPSULE (FP) PO PRN (21:02)
[2022-10-25] MEDS: METHOCARBAMOL 500 MG TABLET PO PRN (21:02)
[2022-10-25] MEDS: INSULIN (LEVEMIR) 100 UNITS/ML UNITS SQ SCH (21:05)
[2022-10-26] MEDS: GABAPENTIN 400 MG CAPSULE PO SCH ×3 (06:35→21:01)
[2022-10-26] MEDS: METHOCARBAMOL 500 MG TABLET PO PRN ×3 (06:36→21:01)
[2022-10-26] MEDS: INSULIN SLIDING SCALE (NOVOLOG) 1 VIAL SQ SCH ×4 (06:39→21:05)
[2022-10-26] MEDS: CARBAMIDE PEROXIDE 6.5% OTIC 15 ML BOTTLE AU SCH (10:14)
[2022-10-26] MEDS: FLUOCINONIDE 0.05% CREAM (15 GM TUBE) TP SCH ×2 (10:15→21:02)
[2022-10-26] MEDS: ASPIRIN COATED 81 MG TABLET.EC PO SCH (10:15)
[2022-10-26] MEDS: TOLNAFTATE 1% CREAM 15 GM TUBE TP SCH ×2 (10:16→21:02)
[2022-10-26] MEDS: PRENATAL VITAMINS W/ FOLIC ACID TABLET (FP) PO SCH (10:16)
[2022-10-26] MEDS: CILOSTAZOL 50 MG TABLET PO SCH (10:16)
[2022-10-26] MEDS: ACETAMINOPHEN 325 MG TABLET (FP) PO PRN ×3 (10:18→21:03)
[2022-10-26] MEDS ORDERED: INSULIN SLIDING SCALE (NOVOLOG) 1 VIAL SQ ONE (11:50)
[2022-10-26] MEDS: MINERAL OIL/PETROLAT/WATER TOPICAL CREAM 113 GM JAR TP PRN (14:28)
[2022-10-26] MEDS: ATORVASTATIN CA 20 MG TABLET (FP) PO SCH (21:01)
[2022-10-26] MEDS: THIAMINE HCL 100 MG TABLET (FP) PO SCH (21:01)
[2022-10-26] MEDS: MELATONIN 5 MG TABLETS PO SCH (21:02)
[2022-10-26] MEDS: diphenhydrAMINE HCL 25 MG CAPSULE (FP) PO PRN (21:02)
[2022-10-26] MEDS: INSULIN (LEVEMIR) 100 UNITS/ML UNITS SQ SCH (21:05)
[2022-10-27] MEDS: INSULIN SLIDING SCALE (NOVOLOG) 1 VIAL SQ SCH ×4 (06:48→21:48)
[2022-10-27] MEDS: GABAPENTIN 400 MG CAPSULE PO SCH ×3 (06:49→21:34)
[2022-10-27] MEDS: METHOCARBAMOL 500 MG TABLET PO PRN ×3 (06:50→21:34)
[2022-10-27] MEDS: CILOSTAZOL 50 MG TABLET PO SCH (10:21)
[2022-10-27] MEDS: ASPIRIN COATED 81 MG TABLET.EC PO SCH (10:21)
[2022-10-27] MEDS: CARBAMIDE PEROXIDE 6.5% OTIC 15 ML BOTTLE AU SCH (10:21)
[2022-10-27] MEDS: PRENATAL VITAMINS W/ FOLIC ACID TABLET (FP) PO SCH (10:22)
[2022-10-27] MEDS: MINERAL OIL/PETROLAT/WATER TOPICAL CREAM 113 GM JAR TP PRN ×2 (10:22→21:45)
[2022-10-27] MEDS: TOLNAFTATE 1% CREAM 15 GM TUBE TP SCH ×2 (10:22→21:35)
[2022-10-27] MEDS: FLUOCINONIDE 0.05% CREAM (15 GM TUBE) TP SCH ×2 (10:22→21:37)
[2022-10-27] MEDS: LOPERAMIDE HCL 2 MG CAPSULE PO PRN ×2 (15:53→23:04)
[2022-10-27] MEDS: THIAMINE HCL 100 MG TABLET (FP) PO SCH (21:33)
[2022-10-27] MEDS: MELATONIN 5 MG TABLETS PO SCH (21:33)
[2022-10-27] MEDS: diphenhydrAMINE HCL 25 MG CAPSULE (FP) PO PRN (21:34)
[2022-10-27] MEDS: ATORVASTATIN CA 20 MG TABLET (FP) PO SCH (21:34)
[2022-10-27] MEDS: ACETAMINOPHEN 325 MG TABLET (FP) PO PRN (21:42)
[2022-10-27] MEDS: INSULIN (LEVEMIR) 100 UNITS/ML UNITS SQ SCH (21:48)
[2022-10-28] MEDS: GABAPENTIN 400 MG CAPSULE PO SCH ×3 (06:36→21:11)
[2022-10-28] MEDS: ACETAMINOPHEN 325 MG TABLET (FP) PO PRN ×2 (06:37→21:15)
[2022-10-28] MEDS: INSULIN SLIDING SCALE (NOVOLOG) 1 VIAL SQ SCH ×4 (06:38→21:16)
[2022-10-28] MEDS: CILOSTAZOL 50 MG TABLET PO SCH (10:11)
[2022-10-28] MEDS: ASPIRIN COATED 81 MG TABLET.EC PO SCH (10:11)
[2022-10-28] MEDS: PRENATAL VITAMINS W/ FOLIC ACID TABLET (FP) PO SCH (10:12)
[2022-10-28] MEDS: FLUOCINONIDE 0.05% CREAM (15 GM TUBE) TP SCH ×2 (10:12→21:16)
[2022-10-28] MEDS: TOLNAFTATE 1% CREAM 15 GM TUBE TP SCH ×2 (10:13→21:13)
[2022-10-28] MEDS: HYDROCORTISONE 2.5% TOPICAL CREAM 30 GM TUBE RC PRN (10:14)
[2022-10-28] MEDS: MINERAL OIL/PETROLAT/WATER TOPICAL CREAM 113 GM JAR TP PRN (10:15)
[2022-10-28] MEDS: METHOCARBAMOL 500 MG TABLET PO PRN ×2 (13:58→21:15)
[2022-10-28] MEDS: ATORVASTATIN CA 20 MG TABLET (FP) PO SCH (21:12)
[2022-10-28] MEDS: diphenhydrAMINE HCL 25 MG CAPSULE (FP) PO PRN (21:12)
[2022-10-28] MEDS: MELATONIN 5 MG TABLETS PO SCH (21:16)
[2022-10-28] MEDS: INSULIN (LEVEMIR) 100 UNITS/ML UNITS SQ SCH (21:16)
[2022-10-28] MEDS: THIAMINE HCL 100 MG TABLET (FP) PO SCH (21:17)
[2022-10-29] MEDS: INSULIN SLIDING SCALE (NOVOLOG) 1 VIAL SQ SCH ×4 (06:40→21:31)
[2022-10-29] MEDS: METHOCARBAMOL 500 MG TABLET PO PRN ×2 (06:42→21:26)
[2022-10-29] MEDS: GABAPENTIN 400 MG CAPSULE PO SCH ×3 (06:42→21:25)
[2022-10-29] MEDS: CILOSTAZOL 50 MG TABLET PO SCH (09:51)
[2022-10-29] MEDS: ASPIRIN COATED 81 MG TABLET.EC PO SCH (09:51)
[2022-10-29] MEDS: PRENATAL VITAMINS W/ FOLIC ACID TABLET (FP) PO SCH (09:51)
[2022-10-29] MEDS: FLUOCINONIDE 0.05% CREAM (15 GM TUBE) TP SCH ×2 (09:52→21:28)
[2022-10-29] MEDS: TOLNAFTATE 1% CREAM 15 GM TUBE TP SCH ×2 (09:52→21:28)
[2022-10-29] MEDS: HYDROCORTISONE 2.5% TOPICAL CREAM 30 GM TUBE RC PRN (09:54)
[2022-10-29] MEDS: MAG HYDROX/AL HYDROX/SIMETH 30 ML UNIT-DOSE CUP PO PRN ×2 (12:09→20:03)
[2022-10-29] MEDS: THIAMINE HCL 100 MG TABLET (FP) PO SCH (21:24)
[2022-10-29] MEDS: diphenhydrAMINE HCL 25 MG CAPSULE (FP) PO PRN (21:25)
[2022-10-29] MEDS: ATORVASTATIN CA 20 MG TABLET (FP) PO SCH (21:25)
[2022-10-29] MEDS: ACETAMINOPHEN 325 MG TABLET (FP) PO PRN (21:27)
[2022-10-29] MEDS: MELATONIN 5 MG TABLETS PO SCH (21:31)
[2022-10-29] MEDS: INSULIN (LEVEMIR) 100 UNITS/ML UNITS SQ SCH (21:57)
[2022-10-29] MEDS: LOPERAMIDE HCL 2 MG CAPSULE PO PRN (23:29)
[2022-10-30] MEDS: GABAPENTIN 400 MG CAPSULE PO SCH ×3 (06:37→21:51)
[2022-10-30] MEDS: INSULIN SLIDING SCALE (NOVOLOG) 1 VIAL SQ SCH ×4 (06:40→21:55)
[2022-10-30] MEDS: METHOCARBAMOL 500 MG TABLET PO PRN ×2 (06:41→21:50)
[2022-10-30 07:33] VITALS: RESP 18
[2022-10-30] MEDS: MAG HYDROX/AL HYDROX/SIMETH 30 ML UNIT-DOSE CUP PO PRN (10:06)
[2022-10-30] MEDS: PRENATAL VITAMINS W/ FOLIC ACID TABLET (FP) PO SCH (10:06)
[2022-10-30] MEDS: FLUOCINONIDE 0.05% CREAM (15 GM TUBE) TP SCH ×2 (10:07→21:57)
[2022-10-30] MEDS: TOLNAFTATE 1% CREAM 15 GM TUBE TP SCH ×2 (10:07→21:57)
[2022-10-30] MEDS: ASPIRIN COATED 81 MG TABLET.EC PO SCH (10:08)
[2022-10-30] MEDS: CILOSTAZOL 50 MG TABLET PO SCH (10:09)
[2022-10-30] MEDS: ACETAMINOPHEN 325 MG TABLET (FP) PO PRN ×2 (13:57→21:51)
[2022-10-30] MEDS: MELATONIN 5 MG TABLETS PO SCH (21:51)
[2022-10-30] MEDS: ATORVASTATIN CA 20 MG TABLET (FP) PO SCH (21:51)
[2022-10-30] MEDS: THIAMINE HCL 100 MG TABLET (FP) PO SCH (21:51)
[2022-10-30] MEDS: diphenhydrAMINE HCL 25 MG CAPSULE (FP) PO PRN (21:51)
[2022-10-30] MEDS: INSULIN (LEVEMIR) 100 UNITS/ML UNITS SQ SCH (21:57)
[2022-10-31] MEDS: INSULIN SLIDING SCALE (NOVOLOG) 1 VIAL SQ SCH ×4 (06:57→21:45)
[2022-10-31] MEDS: GABAPENTIN 400 MG CAPSULE PO SCH ×3 (06:58→21:41)
[2022-10-31] MEDS: METHOCARBAMOL 500 MG TABLET PO PRN ×3 (06:59→21:42)
[2022-10-31] MEDS: MAG HYDROX/AL HYDROX/SIMETH 30 ML UNIT-DOSE CUP PO PRN ×3 (07:13→22:28)
[2022-10-31] MEDS: PRENATAL VITAMINS W/ FOLIC ACID TABLET (FP) PO SCH (10:22)
[2022-10-31] MEDS: ASPIRIN COATED 81 MG TABLET.EC PO SCH (10:23)
[2022-10-31] MEDS: FLUOCINONIDE 0.05% CREAM (15 GM TUBE) TP SCH ×2 (10:24→21:42)
[2022-10-31] MEDS: CILOSTAZOL 50 MG TABLET PO SCH (10:24)
[2022-10-31] MEDS: TOLNAFTATE 1% CREAM 15 GM TUBE TP SCH ×2 (10:24→21:45)
[2022-10-31] MEDS: THIAMINE HCL 100 MG TABLET (FP) PO SCH (21:41)
[2022-10-31] MEDS: diphenhydrAMINE HCL 25 MG CAPSULE (FP) PO PRN (21:41)
[2022-10-31] MEDS: ATORVASTATIN CA 20 MG TABLET (FP) PO SCH (21:41)
[2022-10-31] MEDS: MELATONIN 5 MG TABLETS PO SCH (21:43)
[2022-10-31] MEDS ORDERED: INSULIN (LEVEMIR) 100 UNITS/ML UNITS SQ SCH (22:00)
[2022-11-01] MEDS: GABAPENTIN 400 MG CAPSULE PO SCH ×3 (06:37→21:38)
[2022-11-01] MEDS: METHOCARBAMOL 500 MG TABLET PO PRN ×3 (06:38→21:38)
[2022-11-01] MEDS: INSULIN SLIDING SCALE (NOVOLOG) 1 VIAL SQ SCH ×4 (06:38→21:41)
[2022-11-01] MEDS: TAMSULOSIN HCL 0.4 MG CAP PO SCH (10:07)
[2022-11-01] MEDS: PRENATAL VITAMINS W/ FOLIC ACID TABLET (FP) PO SCH (10:07)
[2022-11-01] MEDS: ASPIRIN COATED 81 MG TABLET.EC PO SCH (10:07)
[2022-11-01] MEDS: CILOSTAZOL 50 MG TABLET PO SCH (10:08)
[2022-11-01] MEDS: TOLNAFTATE 1% CREAM 15 GM TUBE TP SCH ×2 (10:08→21:41)
[2022-11-01] MEDS: FLUOCINONIDE 0.05% CREAM (15 GM TUBE) TP SCH ×2 (10:09→21:41)
[2022-11-01] MEDS: NIFEdipine E.R. 30 MG TABLET PO SCH (11:20)
[2022-11-01] MEDS: INSULIN (LEVEMIR) 100 UNITS/ML UNITS SQ SCH ×2 (12:11→21:41)
[2022-11-01] MEDS: MAG HYDROX/AL HYDROX/SIMETH 30 ML UNIT-DOSE CUP PO PRN (12:13)
[2022-11-01] MEDS: ACETAMINOPHEN 325 MG TABLET (FP) PO PRN (21:38)
[2022-11-01] MEDS: ATORVASTATIN CA 20 MG TABLET (FP) PO SCH (21:38)
[2022-11-01] MEDS: THIAMINE HCL 100 MG TABLET (FP) PO SCH (21:38)
[2022-11-01] MEDS: diphenhydrAMINE HCL 25 MG CAPSULE (FP) PO PRN (21:38)
[2022-11-01] MEDS: MELATONIN 5 MG TABLETS PO SCH (21:41)
[2022-11-02] MEDS: GABAPENTIN 400 MG CAPSULE PO SCH ×3 (06:42→21:42)
[2022-11-02] MEDS: METHOCARBAMOL 500 MG TABLET PO PRN ×3 (06:43→21:42)
[2022-11-02] MEDS: INSULIN SLIDING SCALE (NOVOLOG) 1 VIAL SQ SCH ×4 (06:58→21:46)
[2022-11-02 07:06] VITALS: TEMP 98
[2022-11-02] MEDS: PRENATAL VITAMINS W/ FOLIC ACID TABLET (FP) PO SCH (10:28)
[2022-11-02] MEDS: NIFEdipine E.R. 30 MG TABLET PO SCH (10:28)
[2022-11-02] MEDS: TAMSULOSIN HCL 0.4 MG CAP PO SCH (10:28)
[2022-11-02] MEDS: ASPIRIN COATED 81 MG TABLET.EC PO SCH (10:28)
[2022-11-02] MEDS: CILOSTAZOL 50 MG TABLET PO SCH (10:29)
[2022-11-02] MEDS: TOLNAFTATE 1% CREAM 15 GM TUBE TP SCH ×2 (10:30→21:47)
[2022-11-02] MEDS: INSULIN (LEVEMIR) 100 UNITS/ML UNITS SQ SCH ×2 (10:32→21:47)
[2022-11-02] MEDS: HYDROCORTISONE 2.5% TOPICAL CREAM 30 GM TUBE RC PRN (10:32)
[2022-11-02] MEDS: MINERAL OIL/PETROLAT/WATER TOPICAL CREAM 113 GM JAR TP PRN (10:36)
[2022-11-02] MEDS: FLUOCINONIDE 0.05% CREAM (15 GM TUBE) TP SCH ×2 (11:29→21:48)
[2022-11-02] MEDS: ATORVASTATIN CA 20 MG TABLET (FP) PO SCH (21:42)
[2022-11-02] MEDS: THIAMINE HCL 100 MG TABLET (FP) PO SCH (21:42)
[2022-11-02] MEDS: diphenhydrAMINE HCL 25 MG CAPSULE (FP) PO PRN (21:42)
[2022-11-02] MEDS: ACETAMINOPHEN 325 MG TABLET (FP) PO PRN (21:42)
[2022-11-02] MEDS: MELATONIN 5 MG TABLETS PO SCH (21:47)
[2022-11-03] MEDS: INSULIN SLIDING SCALE (NOVOLOG) 1 VIAL SQ SCH (06:46)
[2022-11-03] MEDS: GABAPENTIN 400 MG CAPSULE PO SCH (06:46)
[2022-11-03] MEDS: METHOCARBAMOL 500 MG TABLET PO PRN (06:47)
[2022-11-03 09:24] VITALS: BP 110/71; PULSE 100
[2022-11-03] MEDS: TAMSULOSIN HCL 0.4 MG CAP PO SCH (10:10)
[2022-11-03] MEDS: CILOSTAZOL 50 MG TABLET PO SCH (10:10)
[2022-11-03] MEDS: PRENATAL VITAMINS W/ FOLIC ACID TABLET (FP) PO SCH (10:10)
[2022-11-03] MEDS: ASPIRIN COATED 81 MG TABLET.EC PO SCH (10:10)
[2022-11-03] MEDS: NIFEdipine E.R. 30 MG TABLET PO SCH (10:10)
[2022-11-03] MEDS: FLUOCINONIDE 0.05% CREAM (15 GM TUBE) TP SCH (10:11)
[2022-11-03] MEDS: INSULIN (LEVEMIR) 100 UNITS/ML UNITS SQ SCH (10:11)
[2022-11-03] MEDS: TOLNAFTATE 1% CREAM 15 GM TUBE TP SCH (10:11)
== END 2022-11-03 10:12 | disposition left against medical advice (07) | DRG 770 ==
LOC: YASAS 12:45 → Y3W 12:46
PROVIDERS: ADMIT Allergy & Immunology; ATTEND Allergy & Immunology
PROC: HZ42ZZZ Group Counseling for Substance Abuse Treatment, Cognitive-Behavioral (ICD-10-PCS; principal; 2022-10-24)
DX: F10.20 Alcohol dependence, uncomplicated (principal); F14.20 Cocaine dependence, uncomplicated; F16.90 Hallucinogen use, unspecified, uncomplicated; F31.9 Bipolar disorder, unspecified; F19.282 Other psychoactive substance dependence with psychoactive substance-induced sleep disorder; F19.24 Other psychoactive substance dependence with psychoactive substance-induced mood disorder; F41.9 Anxiety disorder, unspecified; E78.5 Hyperlipidemia, unspecified; I10 Essential (primary) hypertension; E11.42 Type 2 diabetes mellitus with diabetic polyneuropathy; Z79.4 Long term (current) use of insulin; J44.9 Chronic obstructive pulmonary disease, unspecified; K64.9 Unspecified hemorrhoids; M54.50 Low back pain, unspecified; G89.29 Other chronic pain; B35.3 Tinea pedis; B35.1 Tinea unguium; L85.3 Xerosis cutis; R60.0 Localized edema; Z85.46 Personal history of malignant neoplasm of prostate; Z86.73 Personal history of transient ischemic attack (TIA), and cerebral infarction without residual deficits; Z88.0 Allergy status to penicillin; Z91.011 Allergy to milk products; F91.8 Other conduct disorders; Z91.199 Patient's noncompliance with other medical treatment and regimen due to unspecified reason
CPT/HCPCS: 82962

== ENCOUNTER 2023-01-17 06:31 | Inpatient (IN) | payer OTHER ==
[2023-01-17 07:04] VITALS: BMI 28.9
[2023-01-17] MEDS ORDERED: NALOXONE HCL 0.4 MG/ML VIAL IM PRN (07:59)
[2023-01-17] MEDS ORDERED: hydrOXYzine PAMOATE 25 MG CAPSULE (FP) PO PRN (07:59)
[2023-01-17] MEDS ORDERED: MAGNESIUM HYDROX 2400MG/30ML ORAL SUSPENSION 30 ML CUP PO PRN (07:59)
[2023-01-17] MEDS ORDERED: IBUPROFEN 400 MG TABLET (FP) PO PRN (07:59)
[2023-01-17] MEDS ORDERED: BENZONATATE 200 MG CAPSULE PO PRN (07:59)
[2023-01-17] MEDS ORDERED: LOPERAMIDE HCL 2 MG CAPSULE PO PRN (07:59)
[2023-01-17] MEDS ORDERED: guaiFENesin 600 MG TABLET.ER (FP) PO PRN (07:59)
[2023-01-17] MEDS ORDERED: BENZOCAINE/MENTHOL (CHLORASEPTIC ) LOZENGE MM PRN (07:59)
[2023-01-17] MEDS ORDERED: ONDANSETRON *ODT* 4 MG TABLET SL PRN (07:59)
[2023-01-17] MEDS ORDERED: IBUPROFEN 600 MG TABLET (FP) PO PRN (07:59)
[2023-01-17] MEDS ORDERED: POLYETHYLENE GLYCOL (HEALTHYLAX) 3350 17 GM PACKET PO PRN (07:59)
[2023-01-17] MEDS ORDERED: DICYCLOMINE HCL 10 MG CAPSULE PO PRN (07:59)
[2023-01-17] MEDS ORDERED: NALOXONE HCL (KLOXXADO) 8 MG SPRAY NS PRN (07:59)
[2023-01-17 09:48] LABS: HEMATOCRIT 47.5 % (35.4-49); HEMOGLOBIN 15.9 GM/dL (11.7-16.9); MCH 31.2 pg (25.7-33.7); MCHC 33.4 g/dl (32.0-35.9); MEAN CELL VOLUME 93.4 fl (80-96); MEAN PLT VOLUME 9.6 fl (7.5-11.1); PLATELET COUNT 223 10^3/uL (134-434); RBC 5.09 M/mm3 (4.00-5.60); RDW 13.4 % (11.9-15.9); WHITE BLOOD COUNT 6.7 K/mm3 (4.0-10.0)
[2023-01-17 09:57] LABS: POTASSIUM 4.1 mmol/L (3.5-5.1)
[2023-01-17] MEDS ORDERED: INSULIN ASPART SQ PRN (09:59)
[2023-01-17] MEDS ORDERED: PRENATAL VITAMINS W/ FOLIC ACID TABLET (FP) PO ONE (10:00)
[2023-01-17 10:02] LABS: BLOOD UREA NITROGEN 27.8 mg/dL (7-18)
[2023-01-17 10:03] LABS: ALBUMIN 3.6 g/dl (3.4-5.0)
[2023-01-17 10:06] LABS: CREATININE 1.9 mg/dL (0.55-1.3)
[2023-01-17] MEDS: PRENATAL VITAMINS W/ FOLIC ACID TABLET (FP) PO SCH (10:06)
[2023-01-17 10:07] LABS: BILIRUBIN,TOTAL 2.5 mg/dL (0.2-1); TOT PROT 7.3 g/dl (6.4-8.2)
[2023-01-17] MEDS ORDERED: INSULIN (NOVOLOG) ASPART 100 UNITS/ML 10ML VIAL ONE (10:20)
[2023-01-17] MEDS: INSULIN SLIDING SCALE (NOVOLOG) 1 VIAL SQ SCH ×2 (10:23→17:18)
[2023-01-17] MEDS: NIFEdipine E.R. 30 MG TABLET PO SCH (10:43)
[2023-01-17] MEDS: ASPIRIN COATED 81 MG TABLET.EC PO SCH (10:43)
[2023-01-17] MEDS ORDERED: COLLOIDAL OATMEAL 1 BAR EACH TP PRN (11:42)
[2023-01-17 11:56] LABS: HIV INTERPRETATION NEGATIVE (NEGATIVE)
[2023-01-17] MEDS ORDERED: diazePAM 5 MG TABLET PO PRN (15:24)
[2023-01-17] MEDS: LIDOCAINE VISCOUS 2% ORAL/TOP 15 ML UNIT-DOSE CUP PO PRN (15:44)
[2023-01-17] MEDS ORDERED: INSULIN SLIDING SCALE (NOVOLOG) 1 VIAL SQ ONE (16:40)
[2023-01-17] MEDS: diazePAM 5 MG TABLET PO SCH ×2 (17:16→22:02)
[2023-01-17] MEDS: BISMUTH SUBSALICYLATE 262 MG/15 ML BTL PO PRN (17:16)
[2023-01-17] MEDS: INSULIN (LEVEMIR) 100 UNITS/ML UNITS SQ SCH (21:27)
[2023-01-17] MEDS ORDERED: PATIENT'S OWN MEDICATION (NON-FORMULARY) (Insulin Detemir [Levemir Flexpen] 100 UNIT/ML In SQ SCH (22:00)
[2023-01-17] MEDS: ATORVASTATIN CA 20 MG TABLET (FP) PO SCH (22:02)
[2023-01-17] MEDS: THIAMINE HCL 100 MG TABLET (FP) PO SCH (22:02)
[2023-01-17] MEDS: diphenhydrAMINE HCL 25 MG CAPSULE (FP) PO PRN (22:02)
[2023-01-17] MEDS: MELATONIN 5 MG TABLETS PO SCH (22:04)
[2023-01-18] MEDS: diazePAM 5 MG TABLET PO SCH ×4 (05:55→22:12)
[2023-01-18] MEDS: INSULIN SLIDING SCALE (NOVOLOG) 1 VIAL SQ SCH ×3 (06:50→16:52)
[2023-01-18] MEDS ORDERED: INSULIN SLIDING SCALE (NOVOLOG) 1 VIAL SQ ONE ×3 (06:57→16:45)
[2023-01-18] MEDS: TAMSULOSIN HCL 0.4 MG CAP PO SCH (07:51)
[2023-01-18] MEDS: ASPIRIN COATED 81 MG TABLET.EC PO SCH (10:56)
[2023-01-18] MEDS: PRENATAL VITAMINS W/ FOLIC ACID TABLET (FP) PO SCH (10:56)
[2023-01-18] MEDS: NIFEdipine E.R. 30 MG TABLET PO SCH (10:56)
[2023-01-18] MEDS: LIDOCAINE VISCOUS 2% ORAL/TOP 15 ML UNIT-DOSE CUP PO PRN (11:16)
[2023-01-18] MEDS: CILOSTAZOL 50 MG TABLET PO SCH (17:04)
[2023-01-18] MEDS: GABAPENTIN 400 MG CAPSULE PO SCH (22:12)
[2023-01-18] MEDS: THIAMINE HCL 100 MG TABLET (FP) PO SCH (22:12)
[2023-01-18] MEDS: diphenhydrAMINE HCL 25 MG CAPSULE (FP) PO PRN (22:13)
[2023-01-18] MEDS: INSULIN (LEVEMIR) 100 UNITS/ML UNITS SQ SCH (22:13)
[2023-01-18] MEDS: ATORVASTATIN CA 20 MG TABLET (FP) PO SCH (22:13)
[2023-01-18] MEDS: MELATONIN 5 MG TABLETS PO SCH (22:13)
[2023-01-19] MEDS: GABAPENTIN 400 MG CAPSULE PO SCH ×3 (05:13→22:32)
[2023-01-19] MEDS: diazePAM 5 MG TABLET PO SCH ×3 (05:15→22:32)
[2023-01-19] MEDS: INSULIN SLIDING SCALE (NOVOLOG) 1 VIAL SQ SCH ×3 (06:05→16:39)
[2023-01-19] MEDS ORDERED: INSULIN SLIDING SCALE (NOVOLOG) 1 VIAL SQ ONE ×3 (06:13→16:37)
[2023-01-19] MEDS: TAMSULOSIN HCL 0.4 MG CAP PO SCH (09:28)
[2023-01-19] MEDS: PRENATAL VITAMINS W/ FOLIC ACID TABLET (FP) PO SCH (10:09)
[2023-01-19] MEDS: ASPIRIN COATED 81 MG TABLET.EC PO SCH (10:09)
[2023-01-19] MEDS: NIFEdipine E.R. 30 MG TABLET PO SCH (10:09)
[2023-01-19] MEDS: CILOSTAZOL 50 MG TABLET PO SCH (10:09)
[2023-01-19] MEDS: LIDOCAINE VISCOUS 2% ORAL/TOP 15 ML UNIT-DOSE CUP PO PRN ×2 (10:13→21:22)
[2023-01-19] MEDS: INSULIN (LEVEMIR) 100 UNITS/ML UNITS SQ SCH (21:20)
[2023-01-19] MEDS: ATORVASTATIN CA 20 MG TABLET (FP) PO SCH (22:32)
[2023-01-19] MEDS: MELATONIN 5 MG TABLETS PO SCH (22:32)
[2023-01-19] MEDS: THIAMINE HCL 100 MG TABLET (FP) PO SCH (22:32)
[2023-01-19] MEDS: diphenhydrAMINE HCL 25 MG CAPSULE (FP) PO PRN (22:32)
[2023-01-19] MEDS: MAG HYDROX/AL HYDROX/SIMETH 30 ML UNIT-DOSE CUP PO PRN (22:36)
[2023-01-20] MEDS: MAG HYDROX/AL HYDROX/SIMETH 30 ML UNIT-DOSE CUP PO PRN ×2 (04:34→16:13)
[2023-01-20] MEDS: diazePAM 5 MG TABLET PO SCH ×2 (05:30→17:32)
[2023-01-20] MEDS: GABAPENTIN 400 MG CAPSULE PO SCH ×3 (05:30→22:31)
[2023-01-20] MEDS: BISMUTH SUBSALICYLATE 262 MG/15 ML BTL PO PRN (05:33)
[2023-01-20] MEDS: ACETAMINOPHEN 325 MG TABLET (FP) PO PRN ×2 (05:37→19:37)
[2023-01-20] MEDS: METHOCARBAMOL 500 MG TABLET PO PRN ×2 (05:38→19:37)
[2023-01-20] MEDS: LIDOCAINE VISCOUS 2% ORAL/TOP 15 ML UNIT-DOSE CUP PO PRN ×2 (06:15→22:36)
[2023-01-20] MEDS: INSULIN SLIDING SCALE (NOVOLOG) 1 VIAL SQ SCH ×3 (06:24→17:30)
[2023-01-20] MEDS: TAMSULOSIN HCL 0.4 MG CAP PO SCH (07:32)
[2023-01-20] MEDS: PRENATAL VITAMINS W/ FOLIC ACID TABLET (FP) PO SCH (10:23)
[2023-01-20] MEDS: CILOSTAZOL 50 MG TABLET PO SCH (10:23)
[2023-01-20] MEDS: ASPIRIN COATED 81 MG TABLET.EC PO SCH (10:23)
[2023-01-20] MEDS: NIFEdipine E.R. 30 MG TABLET PO SCH (10:23)
[2023-01-20] MEDS ORDERED: INSULIN SLIDING SCALE (NOVOLOG) 1 VIAL SQ ONE (11:32)
[2023-01-20] MEDS: ATORVASTATIN CA 20 MG TABLET (FP) PO SCH (22:31)
[2023-01-20] MEDS: THIAMINE HCL 100 MG TABLET (FP) PO SCH (22:31)
[2023-01-20] MEDS: MELATONIN 5 MG TABLETS PO SCH (22:31)
[2023-01-20] MEDS: INSULIN (LEVEMIR) 100 UNITS/ML UNITS SQ SCH (22:32)
[2023-01-20] MEDS: diphenhydrAMINE HCL 25 MG CAPSULE (FP) PO PRN (22:33)
[2023-01-21] MEDS: GABAPENTIN 400 MG CAPSULE PO SCH (05:41)
[2023-01-21] MEDS ORDERED: INSULIN SLIDING SCALE (NOVOLOG) 1 VIAL SQ ONE (05:42)
[2023-01-21] MEDS ORDERED: diazePAM 5 MG TABLET PO ONE (06:00)
[2023-01-21] MEDS: INSULIN SLIDING SCALE (NOVOLOG) 1 VIAL SQ SCH (06:27)
[2023-01-21 09:04] VITALS: BP 159/96; PULSE 90; RESP 17; TEMP 98.6
[2023-01-21] MEDS: TAMSULOSIN HCL 0.4 MG CAP PO SCH (09:15)
[2023-01-21] MEDS: PRENATAL VITAMINS W/ FOLIC ACID TABLET (FP) PO SCH (10:10)
[2023-01-21] MEDS: ASPIRIN COATED 81 MG TABLET.EC PO SCH (10:12)
[2023-01-21] MEDS: CILOSTAZOL 50 MG TABLET PO SCH (10:12)
[2023-01-21] MEDS: NIFEdipine E.R. 30 MG TABLET PO SCH (10:12)
== END 2023-01-21 11:11 | disposition other institution (70) | DRG 774 ==
LOC: YASAS 06:31 → Y3N 08:35
PROVIDERS: ADMIT Allergy & Immunology; ATTEND Surgery
PROC: HZ2ZZZZ Detoxification Services for Substance Abuse Treatment (ICD-10-PCS; principal; 2023-01-17)
DX: F10.230 Alcohol dependence with withdrawal, uncomplicated (principal); F14.10 Cocaine abuse, uncomplicated; F31.9 Bipolar disorder, unspecified; G47.00 Insomnia, unspecified; I10 Essential (primary) hypertension; E78.5 Hyperlipidemia, unspecified; E11.42 Type 2 diabetes mellitus with diabetic polyneuropathy; Z79.4 Long term (current) use of insulin; K21.9 Gastro-esophageal reflux disease without esophagitis; M17.11 Unilateral primary osteoarthritis, right knee; Z85.46 Personal history of malignant neoplasm of prostate; Z86.73 Personal history of transient ischemic attack (TIA), and cerebral infarction without residual deficits; Z88.0 Allergy status to penicillin; Z88.6 Allergy status to analgesic agent; Z91.011 Allergy to milk products
CPT/HCPCS: 36415; 80053; 82140; 82962; 83036; 85027; 86780; 87389; 87635; Q0162

== ENCOUNTER 2023-09-18 13:47 | Inpatient (IN) | payer OTHER ==
[2023-09-18 14:18] VITALS: BMI 26.6
[2023-09-18] MEDS ORDERED: LOPERAMIDE HCL 2 MG CAPSULE PO PRN (15:41)
[2023-09-18] MEDS ORDERED: MAGNESIUM HYDROX 2400MG/30ML ORAL SUSPENSION 30 ML CUP PO PRN (15:41)
[2023-09-18] MEDS ORDERED: POLYETHYLENE GLYCOL (HEALTHYLAX) 3350 17 GM PACKET PO PRN (15:41)
[2023-09-18] MEDS ORDERED: NALOXONE HCL (KLOXXADO) 8 MG SPRAY NS PRN (15:41)
[2023-09-18] MEDS ORDERED: NALOXONE HCL 0.4 MG/ML VIAL IM PRN (15:41)
[2023-09-18] MEDS ORDERED: DICYCLOMINE HCL 10 MG CAPSULE PO PRN (15:41)
[2023-09-18] MEDS ORDERED: IBUPROFEN 400 MG TABLET (FP) PO PRN (15:41)
[2023-09-18] MEDS ORDERED: ONDANSETRON *ODT* 4 MG TABLET SL PRN (15:41)
[2023-09-18] MEDS ORDERED: NICOTINE POLACRILEX 2 MG GUM BUC PRN (15:41)
[2023-09-18] MEDS ORDERED: BENZOCAINE/MENTHOL (CHLORASEPTIC ) LOZENGE MM PRN (15:41)
[2023-09-18] MEDS ORDERED: LORazepam 1 MG TABLET PO PRN (15:41)
[2023-09-18] MEDS ORDERED: BENZONATATE 200 MG CAPSULE PO PRN (15:41)
[2023-09-18] MEDS ORDERED: hydrOXYzine PAMOATE 25 MG CAPSULE (FP) PO PRN (15:41)
[2023-09-18] MEDS ORDERED: guaiFENesin 600 MG TABLET.ER (FP) PO PRN (15:41)
[2023-09-18] MEDS ORDERED: IBUPROFEN 600 MG TABLET (FP) PO PRN (15:41)
[2023-09-18] MEDS ORDERED: diazePAM 5 MG TABLET PO PRN (16:09)
[2023-09-18] MEDS ORDERED: LORazepam 2 MG TABLET PO SCH (17:00)
[2023-09-18] MEDS ORDERED: PRENATAL VITAMINS W/ FOLIC ACID TABLET (FP) PO ONE (17:38)
[2023-09-18] MEDS ORDERED: diazePAM 5 MG TABLET ONE (17:38)
[2023-09-18] MEDS: PRENATAL VITAMINS W/ FOLIC ACID TABLET (FP) PO SCH (17:40)
[2023-09-18] MEDS: diazePAM 5 MG TABLET PO SCH (17:40)
[2023-09-18] MEDS: INSULIN ASPART SLIDING SCALE (NOVOLOG) 1 VIAL SQ SCH (19:16)
[2023-09-18] MEDS: ACETAMINOPHEN 325 MG TABLET (FP) PO PRN (20:50)
[2023-09-18] MEDS: INSULIN (LEVEMIR) 100 UNITS/ML UNITS SQ SCH (21:12)
[2023-09-18] MEDS: ATORVASTATIN CA 20 MG TABLET (FP) PO SCH (22:35)
[2023-09-18] MEDS: THIAMINE HCL 100 MG TABLET (FP) PO SCH (22:35)
[2023-09-18] MEDS: TAMSULOSIN HCL 0.4 MG CAP PO SCH (22:35)
[2023-09-18] MEDS: GABAPENTIN 400 MG CAPSULE PO SCH (22:35)
[2023-09-18] MEDS: MELATONIN 5 MG TABLETS PO SCH (22:36)
[2023-09-19] MEDS: ASPIRIN COATED 81 MG TABLET.EC PO SCH (10:20)
[2023-09-19] MEDS: BISMUTH SUBSALICYLATE 524 MG/30 ML PO PRN (10:25)
[2023-09-19] MEDS: FLUOCINONIDE 0.05% CREAM (60 GM TUBE) TP SCH (11:23)
[2023-09-19] MEDS: TOLNAFTATE 1% CREAM 15 GM TUBE TP SCH (11:40)
[2023-09-19 11:53] LABS: HEMATOCRIT 44.6 % (35.4-49); HEMOGLOBIN 15.8 GM/dL (11.7-16.9); MCH 32.3 pg (25.7-33.7); MCHC 35.6 g/dl (32.0-35.9); MEAN CELL VOLUME 90.7 fl (80-96); PLATELET COUNT 199 10^3/uL (134-434); RBC 4.91 M/mm3 (4.00-5.60); RDW 13.6 % (11.9-15.9); WHITE BLOOD COUNT 6.3 K/mm3 (4.0-10.0)
[2023-09-19 12:53] LABS: CHLORIDE 104 mmol/L (98-107); POTASSIUM 3.7 mmol/L (3.5-5.1); SODIUM 141 mmol/L (136-145)
[2023-09-19 12:58] LABS: CALCIUM 9.7 mg/dL (8.5-10.1)
[2023-09-19 12:59] LABS: ALBUMIN 3.4 g/dl (3.4-5.0); ANION GAP 6 mmol/L (4-13); BLOOD UREA NITROGEN 20.4 mg/dL (7-18); CO2 31 mmol/L (21-32); GLUCOSE,RANDOM 177 mg/dL (74-106); HIV INTERPRETATION NEGATIVE (NEGATIVE)
[2023-09-19 13:01] LABS: ALK PHOS 77 U/L (45-117)
[2023-09-19 13:02] LABS: CREATININE 1.6 mg/dL (0.55-1.3); SGOT/AST 14 U/L (15-37); SGPT/ALT 16 U/L (13-61)
[2023-09-19 13:03] LABS: BILIRUBIN,TOTAL 0.9 mg/dL (0.2-1); TOT PROT 7.1 g/dl (6.4-8.2)
[2023-09-19] MEDS: ARTIFICIAL TEARS OPHTHALMIC DROPS OU SCH (13:31)
[2023-09-19] MEDS: MAG HYDROX/AL HYDROX/SIMETH 30 ML UNIT-DOSE CUP PO PRN (19:18)
[2023-09-19] MEDS: diphenhydrAMINE HCL 25 MG CAPSULE (FP) PO PRN (22:59)
[2023-09-20] MEDS ORDERED: LORazepam 1 MG TABLET PO SCH (05:00)
[2023-09-20] MEDS: diazePAM 5 MG TABLET PO SCH (05:28)
[2023-09-20] MEDS: METHOCARBAMOL 500 MG TABLET PO PRN (10:35)
[2023-09-21] MEDS ORDERED: LORazepam 0.5 MG TABLET PO PRN
[2023-09-21] MEDS ORDERED: LORazepam 0.5 MG TABLET PO SCH (05:00)
[2023-09-21] MEDS: diazePAM 5 MG TABLET PO SCH (05:25)
[2023-09-21] MEDS ORDERED: INSULIN ASPART SLIDING SCALE (NOVOLOG) 1 VIAL SQ ONE ×2 (06:42→11:45)
[2023-09-21] MEDS: INSULIN (NOVOLOG) ASPART 100 UNITS/ML 10ML VIAL SQ ONE (12:15)
[2023-09-22] MEDS: COLLOIDAL OATMEAL 1 BAR EACH TP PRN (04:39)
[2023-09-22] MEDS ORDERED: LORazepam 0.5 MG TABLET PO ONE (05:00)
[2023-09-22] MEDS: diazePAM 5 MG TABLET PO ONE (05:45)
[2023-09-22 06:51] VITALS: PULSE 109; RESP 17
[2023-09-22 09:09] VITALS: BP 95/60; TEMP 97.3
[2023-09-22] MEDS: INSULIN (NOVOLOG) ASPART 100 UNITS/ML 10ML VIAL SQ ONE (11:40)
[2023-09-22] MEDS ORDERED: INSULIN ASPART SLIDING SCALE (NOVOLOG) 1 VIAL SQ ONE (12:05)
== END 2023-09-22 13:04 | disposition other institution (70) | DRG 774 ==
LOC: YASAS 13:47 → Y3N 17:38
PROVIDERS: ADMIT Allergy & Immunology; ATTEND Surgery
PROC: HZ2ZZZZ Detoxification Services for Substance Abuse Treatment (ICD-10-PCS; principal; 2023-09-18)
DX: F10.230 Alcohol dependence with withdrawal, uncomplicated (principal); F14.20 Cocaine dependence, uncomplicated; F16.20 Hallucinogen dependence, uncomplicated; F17.210 Nicotine dependence, cigarettes, uncomplicated; F19.24 Other psychoactive substance dependence with psychoactive substance-induced mood disorder; E78.5 Hyperlipidemia, unspecified; E11.9 Type 2 diabetes mellitus without complications; Z79.4 Long term (current) use of insulin; G62.9 Polyneuropathy, unspecified; I10 Essential (primary) hypertension; B35.3 Tinea pedis; L85.3 Xerosis cutis; M54.50 Low back pain, unspecified; G89.29 Other chronic pain; Z85.46 Personal history of malignant neoplasm of prostate; Z99.89 Dependence on other enabling machines and devices; Z91.011 Allergy to milk products; Z88.0 Allergy status to penicillin; Z88.6 Allergy status to analgesic agent
CPT/HCPCS: 36415; 80053; 80307; 82962; 83036; 85027; 86780; 87389; 87635

== ENCOUNTER 2023-09-22 13:10 | Inpatient (IN) | payer OTHER ==
[2023-09-22] MEDS ORDERED: IBUPROFEN 600 MG TABLET (FP) PO PRN (14:21)
[2023-09-22] MEDS ORDERED: NICOTINE 14 MG/24 HOURS TOPICAL PATCH TD PRN (14:21)
[2023-09-22] MEDS ORDERED: BENZOCAINE/MENTHOL (CHLORASEPTIC ) LOZENGE MM PRN (14:21)
[2023-09-22] MEDS ORDERED: NALOXONE HCL 0.4 MG/ML VIAL IVPUSH PRN (14:21)
[2023-09-22] MEDS ORDERED: POLYETHYLENE GLYCOL (HEALTHYLAX) 3350 17 GM PACKET PO PRN (14:21)
[2023-09-22] MEDS ORDERED: NICOTINE POLACRILEX 4 MG LOZENGE BC PRN (14:21)
[2023-09-22] MEDS ORDERED: NICOTINE POLACRILEX 4 MG GUM BUC PRN (14:21)
[2023-09-22] MEDS ORDERED: BENZONATATE 200 MG CAPSULE PO PRN (14:21)
[2023-09-22] MEDS ORDERED: MAGNESIUM HYDROX 2400MG/30ML ORAL SUSPENSION 30 ML CUP PO PRN (14:21)
[2023-09-22] MEDS ORDERED: NALOXONE HCL (KLOXXADO) 8 MG SPRAY NS PRN (14:21)
[2023-09-22] MEDS ORDERED: IBUPROFEN 400 MG TABLET (FP) PO PRN (14:21)
[2023-09-22] MEDS ORDERED: guaiFENesin 600 MG TABLET.ER (FP) PO PRN (14:21)
[2023-09-22] MEDS ORDERED: LOPERAMIDE HCL 2 MG CAPSULE PO PRN (14:21)
[2023-09-22] MEDS: MAG HYDROX/AL HYDROX/SIMETH 30 ML UNIT-DOSE CUP PO PRN (15:30)
[2023-09-22] MEDS: INSULIN ASPART SLIDING SCALE (NOVOLOG) 1 VIAL SQ SCH (16:31)
[2023-09-22] MEDS: GABAPENTIN 400 MG CAPSULE PO SCH (21:44)
[2023-09-22] MEDS: THIAMINE HCL 100 MG TABLET (FP) PO SCH (21:44)
[2023-09-22] MEDS: TOLNAFTATE 1% CREAM 15 GM TUBE TP SCH (21:44)
[2023-09-22] MEDS: ATORVASTATIN CA 20 MG TABLET (FP) PO SCH (21:44)
[2023-09-22] MEDS: diphenhydrAMINE HCL 25 MG CAPSULE (FP) PO SCH (21:44)
[2023-09-22] MEDS: ARTIFICIAL TEARS OPHTHALMIC DROPS OU SCH (21:45)
[2023-09-22] MEDS: TAMSULOSIN HCL 0.4 MG CAP PO SCH (21:46)
[2023-09-22] MEDS: ACETAMINOPHEN 325 MG TABLET (FP) PO PRN (21:47)
[2023-09-22] MEDS: MELATONIN 5 MG TABLETS PO SCH (21:48)
[2023-09-22] MEDS: FLUOCINONIDE 0.05% CREAM (15 GM TUBE) TP SCH (21:49)
[2023-09-22] MEDS: INSULIN (LEVEMIR) 100 UNITS/ML UNITS SQ SCH (21:50)
[2023-09-22] MEDS: PHENYLEPHRINE HCL/COCOA BUTTER 1 EACH SUPP.RECT RC SCH (22:25)
[2023-09-23] MEDS: METHOCARBAMOL 500 MG TABLET PO PRN (06:49)
[2023-09-23] MEDS: PRENATAL VITAMINS W/ FOLIC ACID TABLET (FP) PO SCH (10:45)
[2023-09-23] MEDS: ASPIRIN COATED 81 MG TABLET.EC PO SCH (10:45)
[2023-09-23] MEDS: hydrOXYzine PAMOATE 25 MG CAPSULE (FP) PO PRN (10:49)
[2023-09-24] MEDS: PHENYLEPHRINE HCL/COCOA BUTTER 1 EACH SUPP.RECT RC ONE (11:43)
[2023-09-25] MEDS ORDERED: INSULIN ASPART SLIDING SCALE (NOVOLOG) 1 VIAL SQ ONE (11:04)
[2023-09-25] MEDS: LACTULOSE 20 GM/30 ML UDC (FOR ORAL USE ONLY) PO SCH (13:34)
[2023-09-25] MEDS: INSULIN (LEVEMIR) 100 UNITS/ML UNITS SQ SCH (21:30)
[2023-09-26] MEDS ORDERED: INSULIN ASPART SLIDING SCALE (NOVOLOG) 1 VIAL SQ ONE (07:28)
[2023-09-27] MEDS ORDERED: INSULIN ASPART SLIDING SCALE (NOVOLOG) 1 VIAL SQ ONE (06:48)
[2023-09-27] MEDS: NALTREXONE HCL 50 MG TABLET PO ONE (10:05)
[2023-09-28] MEDS: NALTREXONE HCL 50 MG TABLET PO SCH (10:26)
[2023-09-28] MEDS ORDERED: INSULIN ASPART SLIDING SCALE (NOVOLOG) 1 VIAL SQ ONE (11:53)
[2023-09-28] MEDS: INSULIN ASPART SLIDING SCALE (NOVOLOG) 1 VIAL SQ SCH (16:36)
[2023-09-28] MEDS: INSULIN (LEVEMIR) 100 UNITS/ML UNITS SQ SCH (21:34)
[2023-09-29] MEDS ORDERED: INSULIN ASPART SLIDING SCALE (NOVOLOG) 1 VIAL SQ SCH (11:27)
[2023-09-29] MEDS: INSULIN (NOVOLOG) ASPART 100 UNITS/ML 10ML VIAL SQ ONE (12:20)
[2023-09-29] MEDS: INSULIN (NOVOLOG) ASPART 100 UNITS/ML 10ML VIAL SQ SCH (17:20)
[2023-09-30] MEDS: PHENYLEPHRINE HCL/COCOA BUTTER 1 EACH SUPP.RECT RC SCH (13:45)
[2023-10-04] MEDS: AMMONIUM LACTATE 12% LOTION 225 GM BOTTLE TP PRN (10:13)
[2023-10-04] MEDS ORDERED: INSULIN ASPART SLIDING SCALE (NOVOLOG) 1 VIAL SQ ONE (11:48)
[2023-10-07] MEDS ORDERED: INSULIN ASPART SLIDING SCALE (NOVOLOG) 1 VIAL SQ ONE (06:21)
[2023-10-09] MEDS ORDERED: INSULIN ASPART SLIDING SCALE (NOVOLOG) 1 VIAL SQ ONE (11:19)
[2023-10-09] MEDS ORDERED: TUBERCULIN PPD 5 TU/0.1ML VIAL ID ONE (14:21)
[2023-10-10] MEDS ORDERED: INSULIN ASPART SLIDING SCALE (NOVOLOG) 1 VIAL SQ ONE (11:30)
[2023-10-12] MEDS ORDERED: INSULIN ASPART SLIDING SCALE (NOVOLOG) 1 VIAL SQ ONE (11:30)
[2023-10-13] MEDS: INSULIN (NOVOLOG) ASPART 100 UNITS/ML 10ML VIAL SQ SCH (17:24)
[2023-10-19 07:09] VITALS: BP 140/86; PULSE 88; RESP 18; TEMP 98.6
== END 2023-10-19 10:20 | disposition home or self-care (01) | DRG 772 ==
LOC: YASAS 13:10 → Y3W 13:11
PROVIDERS: ADMIT Allergy & Immunology; ATTEND Psychiatry & Neurology Pain Medicine
PROC: HZ42ZZZ Group Counseling for Substance Abuse Treatment, Cognitive-Behavioral (ICD-10-PCS; principal; 2023-09-22)
DX: F10.20 Alcohol dependence, uncomplicated (principal); F14.20 Cocaine dependence, uncomplicated; F13.20 Sedative, hypnotic or anxiolytic dependence, uncomplicated; F16.20 Hallucinogen dependence, uncomplicated; F17.210 Nicotine dependence, cigarettes, uncomplicated; F31.9 Bipolar disorder, unspecified; F41.9 Anxiety disorder, unspecified; E72.20 Disorder of urea cycle metabolism, unspecified; G62.9 Polyneuropathy, unspecified; I10 Essential (primary) hypertension; E11.9 Type 2 diabetes mellitus without complications; Z79.4 Long term (current) use of insulin; Z85.46 Personal history of malignant neoplasm of prostate; Z88.0 Allergy status to penicillin; Z88.6 Allergy status to analgesic agent; Z91.011 Allergy to milk products
CPT/HCPCS: 36415; 82140; 82962; 86803

== ENCOUNTER 2023-12-16 01:00 | Inpatient (IN) | payer OTHER ==
[2023-12-16 01:29] VITALS: BMI 29.5
[2023-12-16] MEDS ORDERED: BENZONATATE 200 MG CAPSULE PO PRN (02:57)
[2023-12-16] MEDS ORDERED: NALOXONE HCL 0.4 MG/ML VIAL IM PRN (02:57)
[2023-12-16] MEDS ORDERED: guaiFENesin 600 MG TABLET.ER (FP) PO PRN (02:57)
[2023-12-16] MEDS ORDERED: NALOXONE HCL (KLOXXADO) 8 MG SPRAY NS PRN (02:57)
[2023-12-16] MEDS ORDERED: hydrOXYzine PAMOATE 25 MG CAPSULE (FP) PO PRN (02:57)
[2023-12-16] MEDS ORDERED: AMMONIUM LACTATE 12% LOTION 225 GM BOTTLE TP PRN (02:57)
[2023-12-16] MEDS ORDERED: POLYETHYLENE GLYCOL (HEALTHYLAX) 3350 17 GM PACKET PO PRN (02:57)
[2023-12-16] MEDS ORDERED: MAGNESIUM HYDROX 2400MG/30ML ORAL SUSPENSION 30 ML CUP PO PRN (02:57)
[2023-12-16] MEDS ORDERED: LOPERAMIDE HCL 2 MG CAPSULE PO PRN (02:57)
[2023-12-16] MEDS ORDERED: BENZOCAINE/MENTHOL (CHLORASEPTIC ) LOZENGE MM PRN (02:57)
[2023-12-16] MEDS: INSULIN ASPART SLIDING SCALE (NOVOLOG) 1 VIAL SQ SCH (05:00)
[2023-12-16] MEDS ORDERED: INSULIN (NOVOLOG) ASPART 100 UNITS/ML 10ML VIAL ONE ×2 (05:06→07:21)
[2023-12-16] MEDS: PRENATAL VITAMINS W/ FOLIC ACID TABLET (FP) PO SCH (09:57)
[2023-12-16] MEDS ORDERED: INSULIN ASPART SLIDING SCALE (NOVOLOG) 1 VIAL SQ ONE (16:55)
[2023-12-16] MEDS ORDERED: CILOSTAZOL 100 MG TABLET PO SCH (21:08)
[2023-12-16] MEDS: ASPIRIN COATED 81 MG TABLET.EC PO SCH (21:25)
[2023-12-16] MEDS: CILOSTAZOL 50 MG TABLET PO SCH (21:34)
[2023-12-16] MEDS: INSULIN (LEVEMIR) 100 UNITS/ML UNITS SQ SCH (21:44)
[2023-12-16] MEDS: THIAMINE 100 MG TABLET PO SCH (21:45)
[2023-12-16] MEDS: ATORVASTATIN CA 20 MG TABLET (FP) PO SCH (21:45)
[2023-12-16] MEDS ORDERED: MELATONIN 5 MG TABLETS PO SCH (22:00)
[2023-12-16] MEDS: CILOSTAZOL 100 MG TABLET PO SCH (22:57)
[2023-12-17] MEDS ORDERED: INSULIN ASPART SLIDING SCALE (NOVOLOG) 1 VIAL SQ ONE (06:39)
[2023-12-17] MEDS: CILOSTAZOL 50 MG TABLET PO SCH (10:09)
[2023-12-17 10:59] LABS: HEMATOCRIT 49.8 % (35.4-49); HEMOGLOBIN 17.1 GM/dL (11.7-16.9); MCHC 34.3 g/dl (32.0-35.9); MEAN CELL VOLUME 93.3 fl (80-96); MEAN PLT VOLUME 9.9 fl (7.5-11.1); PLATELET COUNT 231 10^3/uL (134-434); RBC 5.34 M/mm3 (4.00-5.60); RDW 13.6 % (11.9-15.9); WHITE BLOOD COUNT 6.7 K/mm3 (4.0-10.0)
[2023-12-17] MEDS: INSULIN (NOVOLOG) ASPART 100 UNITS/ML 10ML VIAL SQ ONE (17:11)
[2023-12-18] MEDS ORDERED: INSULIN ASPART SLIDING SCALE (NOVOLOG) 1 VIAL SQ ONE (06:57)
[2023-12-18] MEDS: VITAMINS A AND D TOPICAL OINTMENT TP SCH (13:15)
[2023-12-18] MEDS ORDERED: INSULIN (NOVOLOG) ASPART 100 UNITS/ML 10ML VIAL ONE (16:21)
[2023-12-18 18:10] LABS: EPI CELLS 20 /uL (0-25.1); HYALINE CASTS 3 /uL (0-3.1); URINE APPEARANCE TURBID; URINE BACTERIA 22 /uL (0-1359); URINE BILIRUBIN NEGATIVE (NEGATIVE); URINE COLOR YELLOW; URINE GLUCOSE (UA) 3+ (NEGATIVE); URINE KETONE NEGATIVE (NEGATIVE); URINE LEUK ESTERASE NEGATIVE (NEGATIVE); URINE NITRITE NEGATIVE (NEGATIVE); URINE PROTEIN 2+ (NEGATIVE); URINE RBC 15 /uL (0-23.9); URINE UROBILINOGEN 0.2 mg/dL (0.2-1.0); URINE WBC 24 /uL (0-25.8)
[2023-12-18] MEDS: ACETAMINOPHEN 325 MG TABLET (FP) PO PRN (20:29)
[2023-12-18] MEDS: diphenhydrAMINE HCL 25 MG CAPSULE (FP) PO PRN (21:12)
[2023-12-19] MEDS ORDERED: INSULIN (NOVOLOG) ASPART 100 UNITS/ML 10ML VIAL ONE ×2 (07:03→12:05)
[2023-12-19] MEDS: INSULIN (LEVEMIR) 100 UNITS/ML UNITS SQ SCH (10:22)
[2023-12-19] MEDS: INSULIN ASPART SLIDING SCALE (NOVOLOG) 1 VIAL SQ SCH (10:24)
[2023-12-19] MEDS ORDERED: GABAPENTIN 400 MG CAPSULE PO SCH (15:45)
[2023-12-19] MEDS: GABAPENTIN 400 MG CAPSULE PO SCH (21:09)
[2023-12-20] MEDS: HYDROCORTISONE 2.5% TOPICAL CREAM 30 GM TUBE TP PRN (02:13)
[2023-12-20] MEDS ORDERED: INSULIN (NOVOLOG) ASPART 100 UNITS/ML 10ML VIAL ONE ×4 (05:58→17:01)
[2023-12-20 07:18] VITALS: RESP 18
[2023-12-20 09:52] LABS: CHLORIDE 99 mmol/L (98-107); POTASSIUM 4.5 mmol/L (3.5-5.1); SODIUM 134 mmol/L (136-145)
[2023-12-20 09:57] LABS: INR 0.95 (0.83-1.09); PROTHROMBIN TIME (PATIENT) 10.7 SEC (9.7-13.0)
[2023-12-20 10:02] LABS: CALCIUM 9.5 mg/dL (8.5-10.1)
[2023-12-20 10:03] LABS: ALBUMIN 3.4 g/dl (3.4-5.0); ANION GAP 9 mmol/L (4-13); CO2 27 mmol/L (21-32); MAGNESIUM 2.1 mg/dL (1.8-2.4); SGPT/ALT 20 U/L (13-61)
[2023-12-20 10:04] LABS: TOT PROT 7.2 g/dl (6.4-8.2)
[2023-12-20 10:05] LABS: ALK PHOS 86 U/L (45-117); BLOOD UREA NITROGEN 29.6 mg/dL (7-18)
[2023-12-20 10:06] LABS: CREATININE 2.4 mg/dL (0.55-1.3); SGOT/AST 15 U/L (15-37)
[2023-12-20] MEDS ORDERED: VITAMINS A AND D TOPICAL OINTMENT TP PRN (10:13)
[2023-12-20 10:18] LABS: BILIRUBIN,TOTAL 0.6 mg/dL (0.2-1)
[2023-12-20 11:04] LABS: GLUCOSE,RANDOM 528 mg/dL (74-106)
[2023-12-20] MEDS: INSULIN (LEVEMIR) 100 UNITS/ML UNITS SQ SCH ×2 (13:31→21:18)
[2023-12-20] MEDS: MAG HYDROX/AL HYDROX/SIMETH 30 ML UNIT-DOSE CUP PO PRN (13:44)
[2023-12-20] MEDS ORDERED: SIMETHICONE 80 MG TAB.CHEW (FP) PO PRN (13:46)
[2023-12-20] MEDS: HYDROCORTISONE ACETATE 25 MG/SUPP.RECT RC PRN (14:38)
[2023-12-20] MEDS: NALTREXONE HCL 50 MG TABLET PO ONE (14:44)
[2023-12-20] MEDS: CHOLECALCIFEROL (VIT D3) 1,000 UNIT (25 MCG) TABLET PO ONE (14:44)
[2023-12-21] MEDS ORDERED: INSULIN (NOVOLOG) ASPART 100 UNITS/ML 10ML VIAL ONE ×2 (07:42→11:40)
[2023-12-21] MEDS: NALTREXONE HCL 50 MG TABLET PO SCH (10:02)
[2023-12-21] MEDS: CHOLECALCIFEROL (VIT D3) 1,000 UNIT (25 MCG) TABLET PO SCH (10:22)
[2023-12-21] MEDS: HYDROCORTISONE ACETATE 25 MG/SUPP.RECT RC ONE (14:43)
[2023-12-21 15:52] VITALS: BP 110/71; PULSE 87; TEMP 97.2
[2023-12-21] MEDS ORDERED: HYDROCORTISONE ACETATE 25 MG/SUPP.RECT RC PRN (16:09)
[2023-12-21] MEDS: INSULIN (LEVEMIR) 100 UNITS/ML UNITS SQ SCH (23:48)
== END 2023-12-21 15:51 | disposition short-term general hospital (02) | DRG 772 ==
LOC: YASAS 01:00 → Y3NR 02:13 → Y5N 12-18 13:05
PROVIDERS: ADMIT Allergy & Immunology; ATTEND Allergy & Immunology
PROC: HZ42ZZZ Group Counseling for Substance Abuse Treatment, Cognitive-Behavioral (ICD-10-PCS; principal; 2023-12-16)
DX: F10.20 Alcohol dependence, uncomplicated (principal); F14.20 Cocaine dependence, uncomplicated; F16.20 Hallucinogen dependence, uncomplicated; F31.9 Bipolar disorder, unspecified; F41.9 Anxiety disorder, unspecified; F19.282 Other psychoactive substance dependence with psychoactive substance-induced sleep disorder; F19.24 Other psychoactive substance dependence with psychoactive substance-induced mood disorder; I10 Essential (primary) hypertension; E11.65 Type 2 diabetes mellitus with hyperglycemia; G62.9 Polyneuropathy, unspecified; N40.0 Benign prostatic hyperplasia without lower urinary tract symptoms; Z85.46 Personal history of malignant neoplasm of prostate; H04.129 Dry eye syndrome of unspecified lacrimal gland; E78.5 Hyperlipidemia, unspecified; R26.2 Difficulty in walking, not elsewhere classified; Z99.89 Dependence on other enabling machines and devices; Z79.4 Long term (current) use of insulin; Z56.0 Unemployment, unspecified
CPT/HCPCS: 36415; 80053; 80305; 81003; 82140; 82306; 82962; 83735; 85027; 85610; 86780; 87811; 93005; 93010

== ENCOUNTER 2023-12-21 16:11 | Inpatient (IN) | payer OTHER ==
[2023-12-21 17:05] LABS: VENOUS BASE EXCESS -0.7 mmol/L (-2-2); VENOUS O2 SATURATION 71.3 % (70-80); VENOUS PCO2 49.5 mmHg (38-52); VENOUS PH 7.336 (7.310-7.410)
[2023-12-21] MEDS: SODIUM CHLORIDE 1,000 ML IV STA (17:05)
[2023-12-21 17:09] LABS: BASO % 0.6 % (0-2.0); EOS % 2.8 % (0-4.5); HEMATOCRIT 43.6 % (35.4-49); HEMOGLOBIN 15.1 GM/dL (11.7-16.9); LYMPH % 39.9 % (8-40); MCH 31.7 pg (25.7-33.7); MCHC 34.7 g/dl (32.0-35.9); MEAN CELL VOLUME 91.2 fl (80-96); MEAN PLT VOLUME 9.5 fl (7.5-11.1); MONO % 10.8 % (3.8-10.2); NEUT % 45.9 % (42.8-82.8); PLATELET COUNT 207 10^3/uL (134-434); RBC 4.78 M/mm3 (4.00-5.60); RDW 13.5 % (11.9-15.9); WHITE BLOOD COUNT 7.1 K/mm3 (4.0-10.0)
[2023-12-21 17:11] LABS: EPI CELLS 1 /uL (0-25.1); HYALINE CASTS 0 /uL (0-3.1); PH,URINE 5.5 (5.0-8.0); URINE APPEARANCE CLEAR; URINE BACTERIA 2 /uL (0-1359); URINE BILIRUBIN NEGATIVE (NEGATIVE); URINE COLOR YELLOW; URINE GLUCOSE (UA) 3+ (NEGATIVE); URINE KETONE NEGATIVE (NEGATIVE); URINE LEUK ESTERASE NEGATIVE (NEGATIVE); URINE NITRITE NEGATIVE (NEGATIVE); URINE PROTEIN 1+ (NEGATIVE); URINE RBC 4 /uL (0-23.9); URINE UROBILINOGEN 0.2 mg/dL (0.2-1.0); URINE WBC 1 /uL (0-25.8)
[2023-12-21 17:33] LABS: MAGNESIUM 2.3 mg/dL (1.8-2.4); POTASSIUM 4.6 mmol/L (3.5-5.1)
[2023-12-21 17:35] LABS: CALCIUM 9.8 mg/dL (8.5-10.1)
[2023-12-21 17:36] LABS: ALBUMIN 3.7 g/dl (3.4-5.0); BLOOD UREA NITROGEN 28.3 mg/dL (7-18)
[2023-12-21 17:37] LABS: PHOSPHOROUS 3.9 mg/dL (2.5-4.9)
[2023-12-21 17:39] LABS: CREATININE 1.9 mg/dL (0.55-1.3)
[2023-12-21 17:40] LABS: BILIRUBIN,TOTAL 0.5 mg/dL (0.2-1); TOT PROT 7.2 g/dl (6.4-8.2)
[2023-12-21 18:30] LABS: HIV INTERPRETATION NEGATIVE (NEGATIVE)
[2023-12-21] MEDS: SODIUM CHLORIDE 0.9% 500 ML INFUS.BAG IV ONE (19:46)
[2023-12-21] MEDS ORDERED: LORazepam 2 MG/ML SDV VIAL IVPUSH PRN (22:29)
[2023-12-21] MEDS: GABAPENTIN 400 MG CAPSULE PO SCH (22:46)
[2023-12-21] MEDS: SODIUM CHLORIDE 1,000 ML IV SCH (22:47)
[2023-12-21] MEDS: INSULIN (LEVEMIR) 100 UNITS/ML UNITS SQ SCH (22:48)
[2023-12-21 23:46] VITALS: BMI 31.6
[2023-12-22] MEDS: PHENYLEPHRINE HCL/COCOA BUTTER 1 EACH SUPP.RECT RC ONE (03:52)
[2023-12-22] MEDS: HEPARIN NA (PORCINE) 5,000 UNITS/ML 1ML VIAL SQ SCH (06:17)
[2023-12-22] MEDS: INSULIN ASPART SLIDING SCALE (NOVOLOG) 1 VIAL SQ SCH ×2 (06:24→21:56)
[2023-12-22] MEDS ORDERED: INSULIN (NOVOLOG) ASPART 100 UNITS/ML 10ML VIAL ONE ×4 (06:37→21:44)
[2023-12-22 08:30] LABS: HEMATOCRIT 43.9 % (35.4-49); MCH 31.4 pg (25.7-33.7); MCHC 34.1 g/dl (32.0-35.9); MEAN CELL VOLUME 92.3 fl (80-96); MEAN PLT VOLUME 10.1 fl (7.5-11.1); PLATELET COUNT 188 10^3/uL (134-434); RBC 4.75 M/mm3 (4.00-5.60); RDW 13.3 % (11.9-15.9); WHITE BLOOD COUNT 6.4 K/mm3 (4.0-10.0)
[2023-12-22] MEDS: ASPIRIN 81 MG CHEWABLE TABLETS PO ONE (08:51)
[2023-12-22 08:52] LABS: POTASSIUM 3.9 mmol/L (3.5-5.1)
[2023-12-22 08:59] LABS: ALBUMIN 3.3 g/dl (3.4-5.0)
[2023-12-22 09:00] LABS: BLOOD UREA NITROGEN 21.7 mg/dL (7-18); CALCIUM 9.2 mg/dL (8.5-10.1)
[2023-12-22 09:03] LABS: CREATININE 1.4 mg/dL (0.55-1.3); PHOSPHOROUS 3.2 mg/dL (2.5-4.9)
[2023-12-22 09:05] LABS: BILIRUBIN,TOTAL 0.9 mg/dL (0.2-1); TOT PROT 6.7 g/dl (6.4-8.2)
[2023-12-22] MEDS ORDERED: ENOXAPARIN NA (PORCINE) 40 MG/0.4 ML DISP.SYRIN SQ SCH (10:00)
[2023-12-22] MEDS: ASPIRIN COATED 81 MG TABLET.EC PO SCH (10:44)
[2023-12-22] MEDS: CILOSTAZOL 50 MG TABLET PO SCH (10:44)
[2023-12-22] MEDS: OLANZapine 5 MG TABLET PO SCH (10:44)
[2023-12-22] MEDS: NALTREXONE HCL 50 MG TABLET PO SCH (10:44)
[2023-12-22] MEDS: FOLIC ACID 1 MG TABLET (FP) PO SCH (10:44)
[2023-12-22] MEDS: PRENATAL VITAMINS W/ FOLIC ACID TABLET (FP) PO SCH (10:44)
[2023-12-22] MEDS: THIAMINE 100 MG TABLET PO SCH (11:02)
[2023-12-22] MEDS: SODIUM CHLORIDE 0.45% 1,000 ML IV SCH (17:42)
[2023-12-22] MEDS: INSULIN (LEVEMIR) 100 UNITS/ML UNITS SQ SCH (21:54)
[2023-12-22] MEDS: PHENYLEPHRINE HCL/COCOA BUTTER 1 EACH SUPP.RECT RC SCH (21:57)
[2023-12-23 08:28] LABS: BASO % 0.7 % (0-2.0); EOS % 3.4 % (0-4.5); HEMATOCRIT 44.5 % (35.4-49); HEMOGLOBIN 15.4 GM/dL (11.7-16.9); LYMPH % 51.2 % (8-40); MCH 31.7 pg (25.7-33.7); MCHC 34.5 g/dl (32.0-35.9); MEAN CELL VOLUME 91.7 fl (80-96); MEAN PLT VOLUME 10.1 fl (7.5-11.1); NEUT % 36.7 % (42.8-82.8); PLATELET COUNT 188 10^3/uL (134-434); RBC 4.85 M/mm3 (4.00-5.60); RDW 13.3 % (11.9-15.9); WHITE BLOOD COUNT 5.9 K/mm3 (4.0-10.0)
[2023-12-23 08:35] LABS: POTASSIUM 4.1 mmol/L (3.5-5.1)
[2023-12-23 08:38] LABS: BLOOD UREA NITROGEN 18.5 mg/dL (7-18)
[2023-12-23 08:39] LABS: ALBUMIN 3.2 g/dl (3.4-5.0); CALCIUM 9.3 mg/dL (8.5-10.1); MAGNESIUM 1.9 mg/dL (1.8-2.4)
[2023-12-23 08:42] LABS: CREATININE 1.4 mg/dL (0.55-1.3)
[2023-12-23 08:44] LABS: BILIRUBIN,TOTAL 0.7 mg/dL (0.2-1); TOT PROT 6.6 g/dl (6.4-8.2)
[2023-12-23] MEDS ORDERED: ASPIRIN 81 MG CHEWABLE TABLETS PO SCH (10:00)
[2023-12-23] MEDS: INSULIN ASPART SLIDING SCALE (NOVOLOG) 1 VIAL SQ SCH ×2 (16:53→21:18)
[2023-12-23] MEDS: INSULIN (LEVEMIR) 100 UNITS/ML UNITS SQ SCH (21:17)
[2023-12-24] MEDS ORDERED: INSULIN (NOVOLOG) ASPART 100 UNITS/ML 10ML VIAL ONE (21:08)
[2023-12-25 09:51] VITALS: BP 134/94; PULSE 89; RESP 22; TEMP 98.1
[2023-12-25] MEDS ORDERED: INSULIN (NOVOLOG) ASPART 100 UNITS/ML 10ML VIAL ONE (11:53)
== END 2023-12-25 13:03 | disposition other institution (70) | DRG 420 ==
LOC: JER 16:11 → JERBED 19:57 → J8W 22:07 → OBSVTOIN 22:34
PROVIDERS: ADMIT Student in an Organized Health Care Education/Training Program; ATTEND Nurse Practitioner Family
DX: E11.65 Type 2 diabetes mellitus with hyperglycemia (principal); N17.9 Acute kidney failure, unspecified; E11.40 Type 2 diabetes mellitus with diabetic neuropathy, unspecified; E78.5 Hyperlipidemia, unspecified; F19.10 Other psychoactive substance abuse, uncomplicated; F10.20 Alcohol dependence, uncomplicated; F41.9 Anxiety disorder, unspecified; F31.9 Bipolar disorder, unspecified; E11.22 Type 2 diabetes mellitus with diabetic chronic kidney disease; E11.42 Type 2 diabetes mellitus with diabetic polyneuropathy; I12.9 Hypertensive chronic kidney disease with stage 1 through stage 4 chronic kidney disease, or unspecified chronic kidney disease; N18.9 Chronic kidney disease, unspecified; Z85.45 Personal history of malignant neoplasm of unspecified male genital organ; Z85.46 Personal history of malignant neoplasm of prostate
CPT/HCPCS: 36415; 71046-TC-FY; 76775-TC; 80048; 80053; 81003; 82010; 82803; 82962; 83036; 83690; 83735; 84100; 84484; 85025; 85027; 86803; 87086; 87389; 93005; 93010; 99285-25; G0378; J1644

== ENCOUNTER 2023-12-25 14:15 | Inpatient (IN) | payer OTHER ==
[2023-12-25 15:38] VITALS: BMI 31.7
[2023-12-25] MEDS ORDERED: NALOXONE HCL 0.4 MG/ML VIAL IM PRN (16:00)
[2023-12-25] MEDS ORDERED: MAGNESIUM HYDROX 2400MG/30ML ORAL SUSPENSION 30 ML CUP PO PRN (16:00)
[2023-12-25] MEDS ORDERED: hydrOXYzine PAMOATE 25 MG CAPSULE (FP) PO PRN (16:00)
[2023-12-25] MEDS ORDERED: BENZONATATE 200 MG CAPSULE PO PRN (16:00)
[2023-12-25] MEDS ORDERED: IBUPROFEN 400 MG TABLET (FP) PO PRN (16:00)
[2023-12-25] MEDS ORDERED: POLYETHYLENE GLYCOL (HEALTHYLAX) 3350 17 GM PACKET PO PRN (16:00)
[2023-12-25] MEDS ORDERED: NALOXONE HCL (KLOXXADO) 8 MG SPRAY NS PRN (16:00)
[2023-12-25] MEDS ORDERED: guaiFENesin 600 MG TABLET.ER (FP) PO PRN (16:00)
[2023-12-25] MEDS ORDERED: IBUPROFEN 600 MG TABLET (FP) PO PRN (16:00)
[2023-12-25] MEDS ORDERED: LOPERAMIDE HCL 2 MG CAPSULE PO PRN (16:00)
[2023-12-25] MEDS ORDERED: BENZOCAINE/MENTHOL (CHLORASEPTIC ) LOZENGE MM PRN (16:00)
[2023-12-25] MEDS ORDERED: MAG HYDROX/AL HYDROX/SIMETH 30 ML UNIT-DOSE CUP PO PRN (16:00)
[2023-12-25] MEDS ORDERED: INSULIN (NOVOLOG) ASPART 100 UNITS/ML 10ML VIAL ONE (17:51)
[2023-12-25] MEDS: INSULIN ASPART SLIDING SCALE (NOVOLOG) 1 VIAL SQ SCH (17:54)
[2023-12-25] MEDS: PRENATAL VITAMINS W/ FOLIC ACID TABLET (FP) PO SCH (18:34)
[2023-12-25] MEDS: NICOTINE 14 MG/24 HOURS TOPICAL PATCH TD SCH (18:35)
[2023-12-25] MEDS: MELATONIN 5 MG TABLETS PO SCH (21:46)
[2023-12-25] MEDS: THIAMINE 100 MG TABLET PO SCH (21:46)
[2023-12-25] MEDS: ACETAMINOPHEN 325 MG TABLET (FP) PO PRN (21:48)
[2023-12-25] MEDS: INSULIN (LEVEMIR) 100 UNITS/ML UNITS SQ SCH (21:49)
[2023-12-25] MEDS ORDERED: PATIENT'S OWN MEDICATION (NON-FORMULARY) (Insulin Glargine,Hum.Rec.Anlog [Lantus] 100 UNIT SQ SCH (22:00)
[2023-12-25] MEDS ORDERED: PATIENT'S OWN MEDICATION (NON-FORMULARY) (Insulin Glargine,Hum.Rec.Anlog [Lantus] 30 UNIT) SQ SCH (22:00)
[2023-12-26] MEDS ORDERED: INSULIN (NOVOLOG) ASPART 100 UNITS/ML 10ML VIAL ONE ×3 (07:37→16:21)
[2023-12-26] MEDS: NALTREXONE HCL 50 MG TABLET PO SCH (10:02)
[2023-12-26] MEDS: THIAMINE 100 MG TABLET PO SCH (10:02)
[2023-12-26] MEDS: ASPIRIN COATED 81 MG TABLET.EC PO SCH (10:02)
[2023-12-26] MEDS: CILOSTAZOL 50 MG TABLET PO SCH (11:11)
[2023-12-26] MEDS ORDERED: SIMETHICONE 80 MG TAB.CHEW (FP) PO PRN (14:41)
[2023-12-26] MEDS: GABAPENTIN 400 MG CAPSULE PO SCH (15:13)
[2023-12-26] MEDS: diphenhydrAMINE HCL 25 MG CAPSULE (FP) PO PRN (21:20)
[2023-12-27] MEDS ORDERED: INSULIN (NOVOLOG) ASPART 100 UNITS/ML 10ML VIAL ONE ×4 (05:57→22:21)
[2023-12-27] MEDS: INSULIN (NOVOLOG) ASPART 100 UNITS/ML 10ML VIAL SQ ONE (06:50)
[2023-12-27] MEDS: HYDROCORTISONE 2.5% TOPICAL CREAM 30 GM TUBE TP PRN (06:53)
[2023-12-27] MEDS ORDERED: INSULIN ASPART SLIDING SCALE (NOVOLOG) 1 VIAL SQ SCH (12:22)
[2023-12-27] MEDS: INSULIN ASPART SLIDING SCALE (NOVOLOG) 1 VIAL SQ ONE (12:26)
[2023-12-27] MEDS: INSULIN ASPART SLIDING SCALE (NOVOLOG) 1 VIAL SQ SCH (12:33)
[2023-12-27] MEDS: CLOTRIMAZOLE 1% CREAM TP SCH (21:38)
[2023-12-27] MEDS: DOCUSATE SODIUM 100 MG CAPSULE (FP) PO PRN (21:38)
[2023-12-27] MEDS: PHENYLEPHRINE HCL/COCOA BUTTER 1 EACH SUPP.RECT RC PRN (21:38)
[2023-12-27] MEDS: diphenhydrAMINE HCL 25 MG CAPSULE (FP) PO PRN (21:41)
[2023-12-28] MEDS ORDERED: INSULIN (NOVOLOG) ASPART 100 UNITS/ML 10ML VIAL ONE ×2 (06:11→11:23)
[2023-12-29] MEDS ORDERED: INSULIN (NOVOLOG) ASPART 100 UNITS/ML 10ML VIAL ONE ×3 (06:32→16:30)
[2023-12-29 06:56] VITALS: RESP 18
[2023-12-30] MEDS ORDERED: INSULIN (NOVOLOG) ASPART 100 UNITS/ML 10ML VIAL ONE ×2 (07:05→11:49)
[2023-12-31] MEDS ORDERED: INSULIN (NOVOLOG) ASPART 100 UNITS/ML 10ML VIAL ONE ×2 (05:54→11:07)
[2024-01-01] MEDS ORDERED: INSULIN (NOVOLOG) ASPART 100 UNITS/ML 10ML VIAL ONE ×3 (06:01→22:12)
[2024-01-02] MEDS: TAMSULOSIN HCL 0.4 MG CAP PO SCH (10:04)
[2024-01-02] MEDS ORDERED: INSULIN (NOVOLOG) ASPART 100 UNITS/ML 10ML VIAL ONE (11:46)
[2024-01-02] MEDS: diphenhydrAMINE HCL 25 MG CAPSULE (FP) PO PRN (21:27)
[2024-01-02] MEDS: INSULIN (LEVEMIR) 100 UNITS/ML UNITS SQ SCH (21:28)
[2024-01-02] MEDS ORDERED: INSULIN (LEVEMIR) 100 UNITS/ML UNITS SQ SCH (22:00)
[2024-01-03] MEDS ORDERED: INSULIN (NOVOLOG) ASPART 100 UNITS/ML 10ML VIAL ONE ×4 (04:18→16:19)
[2024-01-04] MEDS ORDERED: INSULIN (NOVOLOG) ASPART 100 UNITS/ML 10ML VIAL ONE ×3 (06:59→16:29)
[2024-01-05] MEDS ORDERED: INSULIN (NOVOLOG) ASPART 100 UNITS/ML 10ML VIAL ONE (06:24)
[2024-01-06] MEDS ORDERED: INSULIN (NOVOLOG) ASPART 100 UNITS/ML 10ML VIAL ONE (16:33)
[2024-01-07] MEDS ORDERED: INSULIN (NOVOLOG) ASPART 100 UNITS/ML 10ML VIAL ONE ×3 (06:31→16:22)
[2024-01-08] MEDS ORDERED: INSULIN (NOVOLOG) ASPART 100 UNITS/ML 10ML VIAL ONE ×3 (07:02→16:25)
[2024-01-08] MEDS: OFLOXACIN 0.3% OTIC SOLUTION 5 ML BOTTLE AD SCH (11:03)
[2024-01-08] MEDS: SPIRONOLACTONE 25 MG TABLET PO SCH (11:03)
[2024-01-08] MEDS: GABAPENTIN 300 MG CAPSULE PO SCH (13:38)
[2024-01-09] MEDS ORDERED: INSULIN (LEVEMIR) 100 UNITS/ML UNITS SQ ONE (05:28)
[2024-01-09] MEDS: INSULIN (LEVEMIR) 100 UNITS/ML UNITS SQ SCH (07:02)
[2024-01-09] MEDS ORDERED: INSULIN (NOVOLOG) ASPART 100 UNITS/ML 10ML VIAL ONE ×3 (12:12→17:06)
[2024-01-10] MEDS ORDERED: INSULIN (NOVOLOG) ASPART 100 UNITS/ML 10ML VIAL ONE ×4 (06:24→16:55)
[2024-01-11] MEDS ORDERED: INSULIN (NOVOLOG) ASPART 100 UNITS/ML 10ML VIAL ONE ×3 (06:28→16:57)
[2024-01-12] MEDS ORDERED: INSULIN (NOVOLOG) ASPART 100 UNITS/ML 10ML VIAL ONE (06:35)
[2024-01-12 06:48] VITALS: TEMP 96.1
[2024-01-12 08:51] VITALS: BP 132/78; PULSE 100
== END 2024-01-12 10:07 | disposition home or self-care (01) | DRG 772 ==
LOC: YASAS 14:15 → Y5N 16:56
PROVIDERS: ADMIT Allergy & Immunology; ATTEND Psychiatry & Neurology Pain Medicine
PROC: HZ42ZZZ Group Counseling for Substance Abuse Treatment, Cognitive-Behavioral (ICD-10-PCS; principal; 2023-12-25)
DX: F10.20 Alcohol dependence, uncomplicated (principal); F14.20 Cocaine dependence, uncomplicated; F16.20 Hallucinogen dependence, uncomplicated; F19.282 Other psychoactive substance dependence with psychoactive substance-induced sleep disorder; F31.9 Bipolar disorder, unspecified; F41.9 Anxiety disorder, unspecified; I10 Essential (primary) hypertension; E11.65 Type 2 diabetes mellitus with hyperglycemia; Z79.4 Long term (current) use of insulin; L29.1 Pruritus scroti; R60.0 Localized edema; R33.8 Other retention of urine; Z85.46 Personal history of malignant neoplasm of prostate; Z88.0 Allergy status to penicillin
CPT/HCPCS: 36415; 80305; 80307; 82962; 86803

== ENCOUNTER 2024-02-07 09:01 | Inpatient (IN) | payer OTHER ==
[2024-02-07 09:34] VITALS: BMI 33.6
[2024-02-07] MEDS ORDERED: NICOTINE POLACRILEX 2 MG GUM BUC PRN (09:41)
[2024-02-07] MEDS ORDERED: POLYETHYLENE GLYCOL (HEALTHYLAX) 3350 17 GM PACKET PO PRN (09:41)
[2024-02-07] MEDS ORDERED: MAGNESIUM HYDROX 2400MG/30ML ORAL SUSPENSION 30 ML CUP PO PRN (09:41)
[2024-02-07] MEDS ORDERED: BENZOCAINE/MENTHOL (CHLORASEPTIC ) LOZENGE MM PRN (09:41)
[2024-02-07] MEDS ORDERED: BENZONATATE 200 MG CAPSULE PO PRN (09:41)
[2024-02-07] MEDS ORDERED: MAG HYDROX/AL HYDROX/SIMETH 30 ML UNIT-DOSE CUP PO PRN (09:41)
[2024-02-07] MEDS ORDERED: guaiFENesin 600 MG TABLET.ER (FP) PO PRN (09:41)
[2024-02-07] MEDS ORDERED: NICOTINE POLACRILEX 2 MG LOZENGE BC PRN (09:41)
[2024-02-07] MEDS ORDERED: P-EPHED 60MG/TRIPROLIDI 2.5MG TABLET PO PRN (09:41)
[2024-02-07] MEDS ORDERED: SPIRONOLACTONE 25 MG TABLET PO SCH (10:00)
[2024-02-07] MEDS ORDERED: INSULIN (NOVOLOG) ASPART 100 UNITS/ML 10ML VIAL ONE ×3 (11:16→21:35)
[2024-02-07] MEDS ORDERED: PRENATAL VITAMINS W/ FOLIC ACID TABLET (FP) PO ONE (11:16)
[2024-02-07] MEDS: INSULIN ASPART SLIDING SCALE (NOVOLOG) 1 VIAL SQ SCH (11:20)
[2024-02-07] MEDS: PRENATAL VITAMINS W/ FOLIC ACID TABLET (FP) PO SCH (11:20)
[2024-02-07] MEDS: TAMSULOSIN HCL 0.4 MG CAP PO SCH (12:24)
[2024-02-07] MEDS: HYDROCORTISONE 2.5% TOPICAL CREAM 30 GM TUBE TP PRN (16:02)
[2024-02-07] MEDS: diphenhydrAMINE HCL 25 MG CAPSULE (FP) PO PRN (21:30)
[2024-02-07] MEDS: MELATONIN 5 MG TABLETS PO SCH (21:30)
[2024-02-07] MEDS: INSULIN (LEVEMIR) 100 UNITS/ML UNITS SQ SCH (21:30)
[2024-02-07] MEDS: THIAMINE 100 MG TABLET PO SCH (21:34)
[2024-02-07] MEDS ORDERED: INSULIN (LEVEMIR) 100 UNITS/ML UNITS SQ ONE (21:35)
[2024-02-08 08:55] LABS: HEMATOCRIT 43.8 % (35.4-49); MEAN CELL VOLUME 91.6 fl (80-96); RBC 4.78 M/mm3 (4.00-5.60)
[2024-02-08 08:58] LABS: HEMOGLOBIN 15.2 GM/dL (11.7-16.9); MCH 31.7 pg (25.7-33.7); MCHC 34.6 g/dl (32.0-35.9); MEAN PLT VOLUME 9.1 fl (7.5-11.1); PLATELET COUNT 242 10^3/uL (134-434); POTASSIUM 4.1 mmol/L (3.5-5.1); RDW 13.8 % (11.9-15.9)
[2024-02-08] MEDS: ASPIRIN COATED 81 MG TABLET.EC PO SCH (09:01)
[2024-02-08] MEDS: SPIRONOLACTONE 25 MG TABLET PO SCH (09:01)
[2024-02-08 09:03] LABS: ALBUMIN 3.6 g/dl (3.4-5.0); CALCIUM 9.1 mg/dL (8.5-10.1)
[2024-02-08 09:04] LABS: BLOOD UREA NITROGEN 16.7 mg/dL (7-18)
[2024-02-08 09:06] LABS: CREATININE 1.5 mg/dL (0.55-1.3)
[2024-02-08 09:08] LABS: BILIRUBIN,TOTAL 1.3 mg/dL (0.2-1); TOT PROT 7.2 g/dl (6.4-8.2)
[2024-02-08] MEDS ORDERED: INSULIN (NOVOLOG) ASPART 100 UNITS/ML 10ML VIAL ONE ×2 (11:49→21:38)
[2024-02-08 14:20] LABS: EPI CELLS 1 /uL (0-25.1); HYALINE CASTS 0 /uL (0-3.1); PH,URINE 5.5 (5.0-8.0); URINE APPEARANCE CLEAR; URINE BACTERIA 3 /uL (0-1359); URINE BILIRUBIN NEGATIVE (NEGATIVE); URINE COLOR YELLOW; URINE GLUCOSE (UA) 3+ (NEGATIVE); URINE KETONE NEGATIVE (NEGATIVE); URINE LEUK ESTERASE NEGATIVE (NEGATIVE); URINE NITRITE NEGATIVE (NEGATIVE); URINE PROTEIN 2+ (NEGATIVE); URINE RBC 1 /uL (0-23.9); URINE UROBILINOGEN 0.2 mg/dL (0.2-1.0); URINE WBC 2 /uL (0-25.8)
[2024-02-08] MEDS: diphenhydrAMINE HCL 25 MG CAPSULE (FP) PO PRN (21:27)
[2024-02-08] MEDS ORDERED: INSULIN (LEVEMIR) 100 UNITS/ML UNITS SQ ONE (21:38)
[2024-02-09] MEDS ORDERED: INSULIN (NOVOLOG) ASPART 100 UNITS/ML 10ML VIAL ONE ×3 (11:40→22:04)
[2024-02-09] MEDS: GABAPENTIN 300 MG CAPSULE PO SCH (21:33)
[2024-02-09] MEDS: CLOTRIMAZOLE 1% CREAM TP SCH (21:37)
[2024-02-09] MEDS: CLOTRIMAZOLE 1%TOPICAL SOLUTION 30 ML BOTTLE TP SCH (21:38)
[2024-02-09] MEDS ORDERED: INSULIN (LEVEMIR) 100 UNITS/ML UNITS SQ ONE (22:04)
[2024-02-10] MEDS ORDERED: INSULIN (NOVOLOG) ASPART 100 UNITS/ML 10ML VIAL ONE ×5 (06:29→21:40)
[2024-02-10] MEDS: ACETAMINOPHEN 325 MG TABLET (FP) PO PRN (06:30)
[2024-02-10 06:46] VITALS: RESP 18
[2024-02-10] MEDS: OLANZapine 5 MG TABLET PO SCH (21:17)
[2024-02-10] MEDS ORDERED: INSULIN (LEVEMIR) 100 UNITS/ML UNITS SQ ONE (21:40)
[2024-02-11] MEDS ORDERED: INSULIN (NOVOLOG) ASPART 100 UNITS/ML 10ML VIAL ONE ×3 (07:51→16:47)
[2024-02-12] MEDS: LOPERAMIDE HCL 2 MG CAPSULE PO PRN (03:46)
[2024-02-12] MEDS ORDERED: INSULIN (NOVOLOG) ASPART 100 UNITS/ML 10ML VIAL ONE (06:54)
[2024-02-12 07:11] VITALS: TEMP 98
[2024-02-12 09:13] VITALS: BP 127/85; PULSE 101
== END 2024-02-12 10:08 | disposition home or self-care (01) | DRG 772 ==
LOC: YASAS 09:01 → Y3E 11:35 → Y5N 02-10 14:52 → Y3E 02-10 14:53
PROVIDERS: ADMIT Allergy & Immunology; ATTEND Psychiatry & Neurology Pain Medicine
PROC: HZ42ZZZ Group Counseling for Substance Abuse Treatment, Cognitive-Behavioral (ICD-10-PCS; principal; 2024-02-07)
DX: F10.20 Alcohol dependence, uncomplicated (principal); F14.20 Cocaine dependence, uncomplicated; F16.20 Hallucinogen dependence, uncomplicated; F12.20 Cannabis dependence, uncomplicated; F17.210 Nicotine dependence, cigarettes, uncomplicated; F19.282 Other psychoactive substance dependence with psychoactive substance-induced sleep disorder; F31.9 Bipolar disorder, unspecified; F41.9 Anxiety disorder, unspecified; G62.9 Polyneuropathy, unspecified; I10 Essential (primary) hypertension; E78.5 Hyperlipidemia, unspecified; E11.9 Type 2 diabetes mellitus without complications; Z79.4 Long term (current) use of insulin; H04.123 Dry eye syndrome of bilateral lacrimal glands; Z85.46 Personal history of malignant neoplasm of prostate; Z88.0 Allergy status to penicillin; Z88.8 Allergy status to other drugs, medicaments and biological substances
CPT/HCPCS: 36415; 80053; 80305; 80307; 81003; 82962; 85027; 86780; 87811; 93005; 93010

== ENCOUNTER 2024-03-15 16:23 | Inpatient (IN) | payer OTHER ==
[2024-03-15 17:13] VITALS: BMI 33.6
[2024-03-15] MEDS ORDERED: POLYETHYLENE GLYCOL (HEALTHYLAX) 3350 17 GM PACKET PO PRN (17:42)
[2024-03-15] MEDS ORDERED: LOPERAMIDE HCL 2 MG CAPSULE PO PRN (17:42)
[2024-03-15] MEDS ORDERED: MAGNESIUM HYDROX 2400MG/30ML ORAL SUSPENSION 30 ML CUP PO PRN (17:42)
[2024-03-15] MEDS ORDERED: BENZONATATE 200 MG CAPSULE PO PRN (17:42)
[2024-03-15] MEDS ORDERED: guaiFENesin 600 MG TABLET.ER (FP) PO PRN (17:42)
[2024-03-15] MEDS ORDERED: TETRAHYDROZOLINE HCL EYE DROPS OU PRN (19:11)
[2024-03-15] MEDS: INSULIN (NOVOLOG) ASPART 100 UNITS/ML 10ML VIAL SQ ONE (19:34)
[2024-03-15] MEDS: THIAMINE 100 MG TABLET PO SCH (22:45)
[2024-03-15] MEDS: INSULIN (LEVEMIR) 100 UNITS/ML UNITS SQ SCH (22:45)
[2024-03-15] MEDS: MELATONIN 5 MG TABLETS PO SCH (22:45)
[2024-03-16] MEDS: INSULIN (NOVOLOG) ASPART 100 UNITS/ML 10ML VIAL SQ SCH (06:03)
[2024-03-16] MEDS: PRENATAL VITAMINS W/ FOLIC ACID TABLET (FP) PO SCH (10:18)
[2024-03-16] MEDS: ASPIRIN COATED 81 MG TABLET.EC PO SCH (10:18)
[2024-03-16] MEDS: CLOTRIMAZOLE 1% CREAM TP SCH (10:18)
[2024-03-16] MEDS: TAMSULOSIN HCL 0.4 MG CAP PO SCH (10:22)
[2024-03-16] MEDS: MAG HYDROX/AL HYDROX/SIMETH 30 ML UNIT-DOSE CUP PO PRN (10:23)
[2024-03-16 11:45] LABS: HEMATOCRIT 45.5 % (35.4-49); HEMOGLOBIN 15.5 GM/dL (11.7-16.9); MCH 31.7 pg (25.7-33.7); MCHC 34.1 g/dl (32.0-35.9); MEAN CELL VOLUME 92.9 fl (80-96); MEAN PLT VOLUME 9.5 fl (7.5-11.1); PLATELET COUNT 191 10^3/uL (134-434); RDW 13.8 % (11.9-15.9)
[2024-03-16 11:54] LABS: ALBUMIN 3.7 g/dl (3.4-5.0); BLOOD UREA NITROGEN 32.3 mg/dL (7-18); CALCIUM 9.7 mg/dL (8.5-10.1)
[2024-03-16 11:57] LABS: CREATININE 2.2 mg/dL (0.55-1.3)
[2024-03-16 11:59] LABS: BILIRUBIN,TOTAL 2.5 mg/dL (0.2-1); TOT PROT 7.4 g/dl (6.4-8.2)
[2024-03-16] MEDS ORDERED: INSULIN ASPART SLIDING SCALE (NOVOLOG) 1 VIAL SQ ONE (17:47)
[2024-03-16] MEDS: diphenhydrAMINE HCL 25 MG CAPSULE (FP) PO PRN (22:55)
[2024-03-17] MEDS ORDERED: INSULIN ASPART SLIDING SCALE (NOVOLOG) 1 VIAL SQ ONE ×3 (05:10→17:11)
[2024-03-18] MEDS: ACETAMINOPHEN 325 MG TABLET (FP) PO PRN (16:20)
[2024-03-18] MEDS: DOCUSATE SODIUM 100 MG CAPSULE (FP) PO PRN (21:01)
[2024-03-18] MEDS: INSULIN (LEVEMIR) 100 UNITS/ML UNITS SQ SCH (21:01)
[2024-03-19 00:27] LABS: PH,URINE 5.5 (5.0-8.0); URINE APPEARANCE CLEAR; URINE BILIRUBIN NEGATIVE (NEGATIVE); URINE COLOR YELLOW; URINE GLUCOSE (UA) 3+ (NEGATIVE); URINE KETONE NEGATIVE (NEGATIVE); URINE LEUK ESTERASE NEGATIVE (NEGATIVE); URINE NITRITE NEGATIVE (NEGATIVE); URINE PROTEIN TRACE (NEGATIVE); URINE UROBILINOGEN 0.2 mg/dL (0.2-1.0)
[2024-03-19] MEDS ORDERED: INSULIN ASPART SLIDING SCALE (NOVOLOG) 1 VIAL SQ ONE ×2 (07:40→12:03)
[2024-03-19] MEDS: INSULIN (LEVEMIR) 100 UNITS/ML UNITS SQ SCH (07:50)
[2024-03-20] MEDS ORDERED: INSULIN ASPART SLIDING SCALE (NOVOLOG) 1 VIAL SQ ONE ×2 (12:13→17:41)
[2024-03-20] MEDS: GABAPENTIN 400 MG CAPSULE PO SCH (14:15)
[2024-03-21] MEDS ORDERED: INSULIN ASPART SLIDING SCALE (NOVOLOG) 1 VIAL SQ ONE (11:51)
[2024-03-21] MEDS: INSULIN ASPART SLIDING SCALE (NOVOLOG) 1 VIAL SQ SCH (12:55)
[2024-03-22] MEDS ORDERED: INSULIN ASPART SLIDING SCALE (NOVOLOG) 1 VIAL SQ ONE (06:45)
[2024-03-24] MEDS ORDERED: INSULIN ASPART SLIDING SCALE (NOVOLOG) 1 VIAL SQ ONE (07:33)
[2024-03-24] MEDS: INSULIN (NOVOLOG) ASPART 100 UNITS/ML 10ML VIAL SQ ONE (17:24)
[2024-03-25] MEDS ORDERED: INSULIN ASPART SLIDING SCALE (NOVOLOG) 1 VIAL SQ ONE (07:11)
[2024-03-26] MEDS: HYDROCORTISONE 2.5% TOPICAL CREAM 30 GM TUBE TP SCH (12:41)
[2024-03-26] MEDS ORDERED: INSULIN ASPART SLIDING SCALE (NOVOLOG) 1 VIAL SQ ONE (22:18)
[2024-03-26] MEDS: INSULIN (NOVOLOG) ASPART 100 UNITS/ML 10ML VIAL SQ ONE (22:19)
[2024-03-27] MEDS ORDERED: INSULIN ASPART SLIDING SCALE (NOVOLOG) 1 VIAL SQ ONE ×2 (07:53→16:44)
[2024-03-27] MEDS: INSULIN (NOVOLOG) ASPART 100 UNITS/ML 10ML VIAL SQ SCH (16:41)
[2024-03-27] MEDS: INSULIN (LEVEMIR) 100 UNITS/ML UNITS SQ SCH (21:44)
[2024-03-28] MEDS ORDERED: INSULIN ASPART SLIDING SCALE (NOVOLOG) 1 VIAL SQ ONE (07:08)
[2024-03-28] MEDS: BENZOCAINE/MENTHOL (CHLORASEPTIC ) LOZENGE MM PRN (18:26)
[2024-03-29] MEDS ORDERED: INSULIN ASPART SLIDING SCALE (NOVOLOG) 1 VIAL SQ ONE ×2 (11:43→17:14)
[2024-03-29] MEDS: GABAPENTIN 300 MG CAPSULE PO SCH (21:42)
[2024-03-30] MEDS ORDERED: INSULIN ASPART SLIDING SCALE (NOVOLOG) 1 VIAL SQ ONE ×2 (12:19→16:34)
[2024-04-01] MEDS ORDERED: INSULIN ASPART SLIDING SCALE (NOVOLOG) 1 VIAL SQ ONE ×3 (06:47→16:34)
[2024-04-01] MEDS: INSULIN (LEVEMIR) 100 UNITS/ML UNITS SQ SCH (21:26)
[2024-04-02] MEDS: INSULIN (LEVEMIR) 100 UNITS/ML UNITS SQ SCH (07:02)
[2024-04-02] MEDS: INSULIN (NOVOLOG) ASPART 100 UNITS/ML 10ML VIAL SQ SCH (07:48)
[2024-04-02] MEDS ORDERED: INSULIN ASPART SLIDING SCALE (NOVOLOG) 1 VIAL SQ ONE (07:52)
[2024-04-03] MEDS ORDERED: INSULIN ASPART SLIDING SCALE (NOVOLOG) 1 VIAL SQ ONE ×2 (07:46→16:41)
[2024-04-04] MEDS ORDERED: INSULIN ASPART SLIDING SCALE (NOVOLOG) 1 VIAL SQ ONE ×2 (08:05→12:26)
[2024-04-05] MEDS ORDERED: INSULIN ASPART SLIDING SCALE (NOVOLOG) 1 VIAL SQ ONE ×2 (08:26→11:34)
[2024-04-06] MEDS ORDERED: INSULIN ASPART SLIDING SCALE (NOVOLOG) 1 VIAL SQ ONE ×2 (06:08→11:27)
[2024-04-06] MEDS: P-EPHED 60MG/TRIPROLIDI 2.5MG TABLET PO PRN (09:51)
[2024-04-08] MEDS ORDERED: INSULIN ASPART SLIDING SCALE (NOVOLOG) 1 VIAL SQ ONE (11:59)
[2024-04-09] MEDS ORDERED: INSULIN ASPART SLIDING SCALE (NOVOLOG) 1 VIAL SQ ONE ×2 (06:29→11:51)
[2024-04-10] MEDS ORDERED: INSULIN ASPART SLIDING SCALE (NOVOLOG) 1 VIAL SQ ONE ×2 (11:55→16:17)
[2024-04-11 09:18] VITALS: RESP 18
[2024-04-11] MEDS ORDERED: INSULIN ASPART SLIDING SCALE (NOVOLOG) 1 VIAL SQ ONE ×2 (12:04→16:25)
[2024-04-12 06:53] VITALS: TEMP 97.5
[2024-04-12 09:32] VITALS: BP 124/76; PULSE 100
== END 2024-04-12 09:49 | disposition home or self-care (01) | DRG 772 ==
LOC: YASAS 16:23 → Y3NR 18:17 → Y3W 03-18 11:29
PROVIDERS: ADMIT Allergy & Immunology; ATTEND Psychiatry & Neurology Pain Medicine
PROC: HZ42ZZZ Group Counseling for Substance Abuse Treatment, Cognitive-Behavioral (ICD-10-PCS; principal; 2024-03-15)
DX: F14.20 Cocaine dependence, uncomplicated (principal); F10.20 Alcohol dependence, uncomplicated; F16.20 Hallucinogen dependence, uncomplicated; F12.20 Cannabis dependence, uncomplicated; F17.210 Nicotine dependence, cigarettes, uncomplicated; F31.9 Bipolar disorder, unspecified; F41.9 Anxiety disorder, unspecified; G62.9 Polyneuropathy, unspecified; I10 Essential (primary) hypertension; E11.65 Type 2 diabetes mellitus with hyperglycemia; Z79.4 Long term (current) use of insulin; E78.5 Hyperlipidemia, unspecified; H04.123 Dry eye syndrome of bilateral lacrimal glands; Z85.46 Personal history of malignant neoplasm of prostate; Z99.89 Dependence on other enabling machines and devices; Z88.0 Allergy status to penicillin
CPT/HCPCS: 0241U-QW; 36415; 80053; 80305; 81003; 82962; 83036; 85027; 87811

== ENCOUNTER 2024-04-02 11:08 | Emergency (ER) | payer OTHER ==
[2024-04-02 11:33] VITALS: RESP 18; BMI 34.4
[2024-04-02 12:00] VITALS: TEMP 98.4
[2024-04-02 12:13] LABS: BASO % 0.8 % (0-2.0); EOS % 2.4 % (0-4.5); HEMATOCRIT 38.7 % (35.4-49); LYMPH % 19.7 % (8-40); MCH 31.2 pg (25.7-33.7); MCHC 33.6 g/dl (32.0-35.9); MEAN PLT VOLUME 8.8 fl (7.5-11.1); MONO % 18.5 % (3.8-10.2); NEUT % 58.6 % (42.8-82.8); PLATELET COUNT 169 10^3/uL (134-434); RBC 4.16 M/mm3 (4.00-5.60); RDW 13.8 % (11.9-15.9)
[2024-04-02 12:30] LABS: EPI CELLS 1 /uL (0-25.1); HYALINE CASTS 0 /uL (0-3.1); PH,URINE 6.5 (5.0-8.0); URINE APPEARANCE CLEAR; URINE BACTERIA 4 /uL (0-1359); URINE BILIRUBIN NEGATIVE (NEGATIVE); URINE COLOR YELLOW; URINE GLUCOSE (UA) 3+ (NEGATIVE); URINE KETONE NEGATIVE (NEGATIVE); URINE LEUK ESTERASE NEGATIVE (NEGATIVE); URINE NITRITE NEGATIVE (NEGATIVE); URINE PROTEIN 2+ (NEGATIVE); URINE RBC 10 /uL (0-23.9); URINE UROBILINOGEN 0.2 mg/dL (0.2-1.0); URINE WBC 1 /uL (0-25.8)
[2024-04-02 12:36] LABS: POTASSIUM 4.5 mmol/L (3.5-5.1)
[2024-04-02 12:38] LABS: ALBUMIN 3.1 g/dl (3.4-5.0); CALCIUM 8.6 mg/dL (8.5-10.1); MAGNESIUM 2.1 mg/dL (1.8-2.4)
[2024-04-02 12:41] LABS: CREATININE 1.8 mg/dL (0.55-1.3); PHOSPHOROUS 3.3 mg/dL (2.5-4.9)
[2024-04-02 12:43] LABS: BILIRUBIN,TOTAL 0.7 mg/dL (0.2-1); TOT PROT 6.4 g/dl (6.4-8.2)
[2024-04-02] MEDS: SODIUM CHLORIDE 0.9% 500 ML INFUS.BAG IV ONE (13:19)
[2024-04-02 15:04] VITALS: BP 135/85; PULSE 89
== END 2024-04-02 16:40 | disposition short-term general hospital (02) ==
LOC: JER 11:08
DX: R55 Syncope and collapse (principal); I95.9 Hypotension, unspecified; R05.9 Cough, unspecified; R21 Rash and other nonspecific skin eruption; R19.7 Diarrhea, unspecified; R14.0 Abdominal distension (gaseous); R60.0 Localized edema; Z20.822 Contact with and (suspected) exposure to COVID-19
CPT/HCPCS: 0241U-QW; 36415; 71045-TC-FY; 80053; 81003; 82962; 83735; 83880; 84100; 84484; 85025; 87086; 93005; 93010; 99285-25